=== PATIENT | female | born 1940 | race Caucasian/White ===

== ENCOUNTER → 2017-01-18 | Outpatient (CLI) | payer MEDICARE, OTHER ==
[2017-01-18 12:39] VITALS: BP 139/66; PULSE 69; RESP 20; TEMP 98
--- NOTE | 2017-01-18 13:22 | P.CONS ---
History of Present Illness - Reason for Consult Consult date: 01/18/17 - History of Present Illness The initial consultation visit for this 76 years FEMALE with a chronic history of severe neck pain, the pain started 4 years ago and she denies any initiating event, it is constant localized in the right side of the neck, and radiated towards the right shoulder blade area, she denies any numbness or tingling sensations she denies any motor or sensory deficits, no fever or night sweats, no change in bowel movement or urination, and also patient complaining of severe low back pain and localized in the low back. It is not radiated to the lower extremity, Past Medical History Past Medical History: Hypertension History of Any Multi-Drug Resistant Organisms: None Reported Past Surgical History: Appendectomy, Cholecystectomy, Joint Replacement, Tubal Ligation Additional Past Surgical History / Comment(s): BILATERAL KNEE REPLACEMENT/BILAT CATARACTS REMOVED Past Anesthesia/Blood Transfusion Reactions: No Reported Reaction Past Psychological History: Depression Smoking Status: Never smoker - Past Family History Mother Family Medical History: Cancer Additional Family Medical History / Comment(s): BREAST Father Family Medical History: Cancer Additional Family Medical History / Comment(s): LIVER CANCER/HEART PROBLEMS Medications and Allergies Home Medications Medication Instructions Recorded Confirmed Type Aspirin 81 mg PO DAILY 01/18/17 01/18/17 History Atenolol 25 mg PO BID 01/18/17 01/18/17 History Escitalopram [Lexapro] 10 mg PO DAILY 01/18/17 01/18/17 History Furosemide [Lasix] 40 mg PO DAILY 01/18/17 01/18/17 History HYDROcodone/APAP 5-325MG [[place] 1 PO Q8H PRN 01/18/17 History 5-325] Loratadine [Loratadine] 20 mg PO DAILY 01/18/17 01/18/17 History Montelukast [Singulair] 10 mg PO DAILY 01/18/17 01/18/17 History Naproxen [Naprosyn] 500 mg PO PRN 01/18/17 History Simvastatin [Zocor] 40 mg PO DAILY 01/18/17 01/18/17 History hydrALAZINE HCL 25 mg PO BID 01/18/17 01/18/17 History Allergies Allergy/AdvReac Type Severity Reaction Status Date / Time No Known Allergies Allergy Verified 01/18/17 12:21 Physical Exam Vitals: Vital Signs Temp Pulse Resp BP 01/18/17 12:31 98 F 69 20 139/66 Intake and Output 01/17/17 01/18/17 01/18/17 22:59 06:59 14:59 Other: Weight 100.698 kg Patient Weight 01/19/17 06:59 Weight 100.698 kg Social history : not smoker , NO ETOH , NO Illegal drugs use Review of Systems : 1- Constitutional : no chills , no fever , no night sweats , 2- Ears : no ear discharge , no change in hearing 3-Nose, Mouth ,Throat ; no bleeding gums, no sore throat , no epistaxis , 4-Cardiovascular : Denies chest pain, , no orthopnea , no palpitation 5-Respiratory : Denies cough , no dyspnea , no hemoptysis 6-Gastrointestinal :, no change in bowel habits , no coffee- ground emesis . 7-Genitourinary : No hematuria , no discharge , no incontinence, 8-Musculoskeletal : No gait dysfunction , report neck pain, report low back pain , 9- Neurological : no ataxia , no tremor , no sezure , 10-Psychatric , no suicidal ideation no hallucination 11- Endocrine : no cold intolerence , no polyuria , no polydypsia , 12-Hematologic : no easy bleeding , no easy brusing , 13-Allergic / immunology : no angioedema , no wheezing ,no allergic rhinitis 14-Integumentary : no brttle nails , no change hair / nails , no foot/leg ulcers . Physical Examinations : 1-Constitutional : Cooperative , not in acute distress . 2-HEENT : nech ; supple , no Lymphadenopathy , no Thyromegaly , :eyes , no icterus, no photophobia . ENT : , normal oropharynx , no Thrush 3- Respiratory : Chest clear to auscultations Bilaterally , no wheezing . 4- Cardiovascular : regular rate and rhythem , S1 , S2 , no S3 , no S4. 5- Gastrointestinal: abdomen soft no tenderness , no organomegally . 6- Genitourinary : Defferred . 7-Integumentary : No cellulitis , no ulcers , normal skin turgor , no cyanotic . 8- neurologic : Cranial nerve II to XII intact , no focal neurological deffecit 9-psychatric : alert , oriented X 3 , appropriate affect , intact judgment and insight . 10-Lymphatic : no Lymphadenopathy. 11- musculoskeltal: normal gait , exams of the cervical spine = motor stregnth in the deltoid and biceps, normal right side , normal Left side motor stregnth biceps and the wrist extensors normal right side ,normal left side . motor stregnth in the triceps muscle . normal Right side , normal Left side deep tendon reflexes normal at the biceps , normal at Brachioradialis , normal at triceps. positive cervical facet loading test ( RIght side only ) is negative on the left side. exams of the Lumber spine = moter stegnth lower extremities , thigh and legs 5/5 Right side , 5/5 Left side deep tendon reflexes : normal Knee Jerk , normal ankle Jerk positive lumber facet Loading Test Range of motion of the lumbar spine Flexion 30 degrees, extension 10 degrees strait leg raising test , positive at 45 degree Fabere test positive RT and positive LT . Results Comments: MRI of the cervical spine= C3 4 mild facet arthropathy and moderate degenerative disc disease, C4 5 facet joint arthropathy and severe degenerative disc disease, C5 6 and C6 7, severe degenerative disc disease and facet arthropathy Assessment and Plan Plan: Assessment and plan = -Chronic neck pain secondary to cervical degenerative disc disease , cervical spondylosis with cervical facet arthropathy without myelopathy . - diagnoses, prognosis, and treatment options including but not limited to physical therapy, surgical interventions, interventional therapies and medication management including narcotics and adjuvant medication were discussed with the patient and all questions answered to the patient's satisfaction. -medication refile = patient getting prescription refills from her primary care she should continue her current pain medication [place] 5/325 every 6 hours when necessary for pain and naproxen 500 mg every daily when necessary -procedure= patient will be scheduled to have right side medial branch block cervical area C3/C4/C5/C6 with the with twice and she benefited then we will do radiofrequency ablation of the medial branch on the right side The future after we finished the treatment of her neck if she continues to have low back pain we will consider ordering an MRI of the lumbar spine to confirm the diagnosis, medical the patient had lumbar degenerative disc disease and lumbar facet arthropathy Time with Patient: Greater than 30
== END ==
LOC: PNWHC3 12:08
PROVIDERS: ATTEND Specialist
DX: M50.30 Other cervical disc degeneration, unspecified cervical region (principal); M47.812 Spondylosis without myelopathy or radiculopathy, cervical region; M46.82 Other specified inflammatory spondylopathies, cervical region; I10 Essential (primary) hypertension; F32.9 Major depressive disorder, single episode, unspecified; Z79.82 Long term (current) use of aspirin; Z79.1 Long term (current) use of non-steroidal anti-inflammatories (NSAID); Z79.899 Other long term (current) drug therapy
CPT/HCPCS: 99211

== ENCOUNTER 2017-02-22 07:22 | Day surgery (SDC) | payer MEDICARE, OTHER ==
[2017-02-21 10:35] VITALS: BMI 38.9
[2017-02-22] MEDS ORDERED: LACTATED RINGERS 1,000 ML IV ONE (07:51)
[2017-02-22] MEDS ORDERED: LIDOCAINE 1% 20 ML VIAL (10MG/ML) FOR IV START INTRADERMA ONE (07:51)
[2017-02-22] MEDS ORDERED: LACTATED RINGERS 1,000 ML IV SCH (08:00)
[2017-02-22 08:06] VITALS: RESP 16; TEMP 97
[2017-02-22] MEDS ORDERED: BUPIVACAINE (PF) 0.5% 30 ML VIAL ONE (08:25)
[2017-02-22] MEDS ORDERED: DEXAMETHASONE SOD PHOS (MDV) 100 MG/10 ML VIAL ONE (08:25)
[2017-02-22] MEDS ORDERED: MIDAZOLAM 2 MG/2 ML VIAL ONE (08:25)
[2017-02-22] MEDS ORDERED: fentaNYL (PF) 50 MCG/ML 2 ML AMP ONE (08:25)
[2017-02-22] MEDS ORDERED: IV FLUID CONTINUATION 1,000 ML IV ONE (08:51)
--- NOTE | 2017-02-22 09:09 | FL ---
EXAMINATION TYPE: FL guided pain mgmt statistic DATE OF EXAM: 02/22/2017 8:51 AM HISTORY: Flouroscopy time 10 seconds of fluoroscopy provided. IMPRESSION: 1. Fluoroscopy time.
[2017-02-22 09:11] VITALS: BP 129/74; PULSE 76
--- NOTE | 2017-02-22 10:22 | P.PCN ---
Date of Procedure: 02/22/17 Surgeon: Jama Watkins Pathology: none sent Condition: stable Disposition: PACU Description of Procedure: PREOPERATIVE DIAGNOSIS: Cervical spondylosis without myelopathy, cervicogenic headache. POSTOPERATIVE DIAGNOSIS: same PROCEDURES: Right side ONLY C4, C5, C6 medial branch, and third occipital nerve steroid injection, with fluoroscopic guidance ANESTHESIA: Local with 1% lidocaine; conscious sedation EBL: Minimal PROCEDURE INDICATION: This is a patient with neck pain and headaches secondary to cervical arthropathy unresponsive to more conservative treatments. No use of blood thinners, MBB #1 today. PROCEDURE DESCRIPTION / TECHNIQUE: The patient was seen and identified in the preoperative area. Risks, benefits, complications, and alternatives were discussed with the patient (including but not limited to incomplete pain relief , bleeding, infection, nerve damage, and allergies to medications), the patient agreed to proceed with the procedure and signed the consent after all questions were answered. IV was started. Vital signs remained stable throughout the procedure. Patient was taken to the OR and time out was completed. The patient was placed in the prone position on the procedure table. A pillow was placed under the patients chest to increase the cervical interlaminar space. The cervical area was prepped and draped in the usual sterile fashion. Critical pause was taken. Vital signs were closely monitored during the procedure. Conscious sedation was used during the procedure to decrease patients anxiety. Using AP fluoroscopy with 15 degree caudal tilt, the medial branch groove of the C4 articular pillar on the right side (corresponding to the waist of the C4 articular pillar on the right) was identified, marked, and localized with 1% lidocaine. Subsequently, after localization, a 22 G 3.5-inch spinal needle was advanced guided by fluoroscopy to this area. Similarly, needles were placed at the medial branch grooves of C5 and C6 in a similar fashion. On lateral view fluoroscopy, needle tip positions was confirmed at the centroid of the trapezoid of C4, C5, and C6. Subsequently, 1 ml of a 3 ml combination of 10 mg Kenalog and 2 ml of preservative-free Bupivacaine 0.5% was injected at each site after negative aspiration for blood and CSF. COMPLICATIONS: No acute complications. COMMENTS: DISPOSITION / PLANS: The patient was placed in a supine position and transferred to the recovery area in a stable condition for observation and was discharged from the recovery room after meeting discharge criteria. Home discharge instructions given to the patient by the staff. The patient was reexamined prior to discharge. The patient will schedule a repeat procedure ( cervical MBB) in 2-4 weeks.
== END 2017-02-22 09:31 | disposition home or self-care (01) ==
LOC: ORPAIN 07:22
PROVIDERS: ATTEND Anesthesiology
DX: G89.29 Other chronic pain (principal); M54.2 Cervicalgia; M54.9 Dorsalgia, unspecified; M47.812 Spondylosis without myelopathy or radiculopathy, cervical region; R51 Headache
CPT/HCPCS: 64490; 64491; 64492; 99152; J2250; J3010; J1100

== ENCOUNTER 2017-03-30 07:17 | Day surgery (SDC) | payer MEDICARE, OTHER ==
[2017-03-24 14:22] VITALS: BMI 38.9
[~2017-03-30 07:17] MED LIST: LACTATED RINGERS 1,000 ML IV SCH
[2017-03-30] MEDS ORDERED: MIDAZOLAM 2 MG/2 ML VIAL ONE (07:30)
[2017-03-30] MEDS ORDERED: fentaNYL (PF) 50 MCG/ML 2 ML AMP ONE (07:30)
[2017-03-30] MEDS ORDERED: BUPIVACAINE (PF) 0.5% 30 ML VIAL ONE (07:30)
[2017-03-30] MEDS ORDERED: DEXAMETHASONE SOD PHOS (MDV) 100 MG/10 ML VIAL ONE (07:30)
[2017-03-30 08:09] VITALS: TEMP 98
[2017-03-30] MEDS ORDERED: IV FLUID CONTINUATION 1,000 ML IV ONE (09:08)
--- NOTE | 2017-03-30 09:14 | P.PCN ---
Date of Procedure: 03/30/17 Preoperative Diagnosis: Postoperative Diagnosis: Procedure(s) Performed: PREOPERATIVE DIAGNOSIS: Cervical Spondylosis with Facet Arthropathy.without myelopathy POSTOPERATIVE DIAGNOSIS: Cervical Spondylosis Facet Arthropathy. Without myelopathy PROCEDURES: Diagnostic right. C3-4, C4-5 , C5-6, medial branch blocks, with fluoroscopic guidance ANESTHESIA: Local with 1% lidocaine 3 ml ; IV sedation with Versed 1 mg and fentanyl 50 g. EBL: Minimal PROCEDURE INDICATION: The patient with neck pain secondary to cervical arthropathy unresponsive to more conservative treatments. PROCEDURE DESCRIPTION / TECHNIQUE: The patient was seen and identified in the preoperative area. Risks, benefits, complications, and alternatives were discussed with the patient, the patient agreed to proceed with the procedure and signed the consent. IV was started. Vital signs remained stable throughout the procedure. Patient was taken to the OR and time out was completed. The patient was placed in the Lateral position on the procedure table.(Left side down ,Becaus the prone position ,I could not visualize anything below C2 Vertebra ). The cervical area was prepped and draped in the usual sterile fashion. Critical pause was taken. Vital signs were closely monitored during the procedure. Conscious sedation was used during the procedure to decrease patients anxiety. Using cross-table lateral fluoroscopy, the centroid of the trapezoid of right C3 , C4 , C5 , was identified, marked, and localized with 1% lidocaine 1 ml at each level for skin and Sub Q infiltrations . Subsequently, a 22 G 3 spinal needle was advanced guided by fluoroscopy to the centroid of the trapezoid of Right C3, C4 , C5, C6 . [place] tip position was confirmed at the centroid of the trapezoids of Right C3 , C4 , C5 with anteroposterior fluoroscopy. Subsequently, 1.5 ml of preservative-free Bupivacaine 0.5% mixed with Dexamethasone 10 mg and half ml of the mixture was injected after negative aspiration for blood and CSF. COMPLICATIONS: No acute complications. COMMENTS: DISPOSITION / PLANS: The patient was placed in a supine position and transferred to the recovery area in a stable condition for observation and was discharged from the recovery room after meeting discharge criteria. Home discharge instructions given to the patient by the staff. The patient was reexamined prior to discharge. The patient will schedule a follow up in the clinic in 2-4 weeks. Implants: Indications for Procedure: Operative Findings: Description of Procedure:
[2017-03-30 09:15] VITALS: RESP 16
[2017-03-30 09:24] VITALS: BP 127/68; PULSE 62
--- NOTE | 2017-03-30 10:14 | FL ---
Fluoroscopy HISTORY: Pain 58 seconds fluoroscopy time supplied to the referring clinician. 2 intraoperative C-arm images docum ent the procedure. See dictated report from anesthesia.
== END 2017-03-30 09:39 | disposition home or self-care (01) ==
LOC: ORPAIN 07:17
PROVIDERS: ATTEND Specialist
DX: M47.812 Spondylosis without myelopathy or radiculopathy, cervical region (principal)
CPT/HCPCS: 64490; 64491; 64492; 99152; J2250; J3010; J1100

== ENCOUNTER → 2017-05-10 | Day surgery (SDC) | payer MEDICARE, OTHER ==
[2017-05-05 12:20] VITALS: BMI 39.3
[~2017-05-10] MED LIST changes: +LACTATED RINGERS 1,000 ML IV ONE; -LACTATED RINGERS 1,000 ML IV SCH; +LIDOCAINE 1% 20 ML VIAL (10MG/ML) FOR IV START INTRADERMA ONE
[2017-05-10 07:34] VITALS: BP 138/62; PULSE 66; RESP 16; TEMP 97.7
--- NOTE | 2017-05-10 07:47 | P.PN ---
Progress Note - Text Patient presented this morning for right cervical RFA. Patient had no relief from first cervical medial branch block and near-complete (95%) pain relief from second MBB and it is still working. Since patient has very little pain, will cancel procedure for today and tentatively reschedule patient for repeat right cervical medial branch block in 4-6 weeks.
== END ==
LOC: ORPAIN 06:23
PROVIDERS: ATTEND Anesthesiology
DX: M50.30 Other cervical disc degeneration, unspecified cervical region (principal); Z53.9 Procedure and treatment not carried out, unspecified reason

== ENCOUNTER 2017-08-09 09:49 | Day surgery (SDC) | payer MEDICARE, OTHER ==
[2017-08-08 08:14] VITALS: BMI 40.0
[~2017-08-09 09:49] MED LIST changes: -LACTATED RINGERS 1,000 ML IV ONE; +LACTATED RINGERS 1,000 ML IV SCH; -LIDOCAINE 1% 20 ML VIAL (10MG/ML) FOR IV START INTRADERMA ONE
[2017-08-09 10:32] VITALS: RESP 16; TEMP 97.1
[2017-08-09] MEDS ORDERED: LIDOCAINE 1% 20 ML VIAL (10MG/ML) FOR IV START INTRADERMA ONE (10:38)
[2017-08-09] MEDS ORDERED: PROPOFOL 10 MG/ML 20 ML VIAL IV ONE (11:35)
[2017-08-09 11:59] VITALS: PULSE 70
--- NOTE | 2017-08-09 12:04 | P.PCN ---
Date of Procedure: 08/09/17 Procedure(s) Performed: Procedure: Total colonoscopy. Preoperative diagnosis: Screening for neoplasia, patient has history of polyps. Postoperative diagnosis: Diverticulosis with no evidence of acute diverticulitis , strictures, polyps or cancer. Preparation: HalfLytely prep. Sedation: Was provided by anesthesia. Brief clinical history: The patient is a 76-year-old female who is scheduled for this evaluation because of history of polyps. Her last exam was 7 or 8 years ago. The patient has no abdominal complaints, bleeding or anemia. Procedure: With the patient on her left lateral decubitus position and after informed consent and adequate sedation, the perianal area was inspected and it did not show any fissures or fistulas. There were no masses felt on digital rectal examination. The Olympus CFQ 160L video colonoscope was then inserted in the rectum in the usual fashion and advanced to the cecum. There were multiple diverticular orifices seen scattered, both on the left side and sigmoid as well as on the right side with no evidence of diverticulitis. The mucosa appeared healthy. No polyps or tumors were seen. I retroflexed the endoscope in the rectum before the endoscope was withdrawn. The patient tolerated the procedure well. Plan: The patient was reassured. Discussed dietary measures. She will follow- up with you as planned. At her age, I did not recommend further surveillance and that can be kept as a contingency based on her overall health in the future.
[2017-08-09 12:12] VITALS: BP 135/72
== END 2017-08-09 12:47 | disposition home or self-care (01) ==
LOC: ORWHC2ENDO 09:49
DX: Z12.11 Encounter for screening for malignant neoplasm of colon (principal); Z86.010 Personal history of colon polyps; K57.30 Diverticulosis of large intestine without perforation or abscess without bleeding; I10 Essential (primary) hypertension; F32.9 Major depressive disorder, single episode, unspecified; M19.90 Unspecified osteoarthritis, unspecified site; E78.5 Hyperlipidemia, unspecified; Z79.891 Long term (current) use of opiate analgesic; Z79.899 Other long term (current) drug therapy
CPT/HCPCS: J2704; G0105

== ENCOUNTER → 2017-08-15 | Outpatient (CLI) | payer MEDICARE, OTHER ==
--- NOTE | 2017-08-16 09:17 | MM ---
Reason for exam: screening (asymptomatic). Last mammogram was performed 1 year ago. History: Patient is postmenopausal. Family history of premenopausal breast cancer in mother at age 28, breast cancer in maternal aunt at age 50, and breast cancer in maternal aunt at age 60. Physical Findings: A clinical breast exam by your physician is recommended on an annual basis and results should be correlated with mammographic findings. MG Screening Mammo w CAD Bilateral CC and MLO view(s) were taken. Prior study comparison: August 17, 2016, bilateral MG 3d screening mammo w/cad. June 19, 2015, bilateral MG screening mammo w CAD. The breast tissue is heterogeneously dense. This may lower the sensitivity of mammography. Finding: There are typically benign calcifications in both breasts. No suspicious abnormality. No significant changes in finding since August 17, 2016 and June 19, 2015. ASSESSMENT: Benign, BI-RAD 2 RECOMMENDATION: Routine screening mammogram of both breasts in 1 year.
== END ==
LOC: RADMAMWWP 14:32
PROVIDERS: ATTEND Internal Medicine
DX: Z12.31 Encounter for screening mammogram for malignant neoplasm of breast (principal)

== ENCOUNTER 2018-01-28 12:06 | Emergency (ER) | payer MEDICARE, OTHER ==
[2018-01-28] MEDS ORDERED: SODIUM CHLORIDE 0.9% 1,000 ML IV STA (12:50)
--- NOTE | 2018-01-28 12:53 | ED ---
Nausea/Vomiting/Diarrhea HPI - General Chief complaint: Nausea/Vomiting/Diarrhea Stated complaint: Vomiting, chills, cannot eat Time Seen by Provider: 01/28/18 12:37 Source: patient Mode of arrival: wheelchair Limitations: no limitations - History of Present Illness Initial comments: 77-year-old female patient presents to the emergency department today for evaluation after having a vomiting and diarrhea for the last 3 days. Patient states that morning she started having dry heaves. States that this lasted off throughout the day and did progress into vomiting. States she is unable to keep any food or fluids down. States she did have several episodes of diarrhea with this. States that she felt chilled and feverish. She states that symptoms did improve yesterday however she felt very bloated whenever she tried to eat or drink anything. Patient states that today she is feeling better however she has a dry mouth and continues to have some bloating to the abdomen. She denies any hematemesis, hematochezia, or melena. She denies any hematuria, dysuria, urinary frequency, or urinary urgency. Reports only past medical history is hyperlipidemia, hypertension, and seasonal ALLERGIES. She denies any sick contacts or recent travel. Patient denies any recent rash, shortness chest pain, abdominal pain, back pain, numbness, tingling, dizziness, weakness, headache, visual changes, or any other complaints. - Related Data Home Medications Medication Instructions Recorded Confirmed Aspirin 81 mg PO HS 01/18/17 01/28/18 Atenolol 25 mg PO BID 01/18/17 01/28/18 Escitalopram [Lexapro] 10 mg PO DAILY 01/18/17 01/28/18 Furosemide [Lasix] 40 mg PO DAILY PRN 01/18/17 01/28/18 Loratadine [Loratadine] 10 mg PO DAILY 01/18/17 01/28/18 Montelukast [Singulair] 10 mg PO DAILY 01/18/17 01/28/18 Naproxen [Naprosyn] 500 mg PO BID PRN 01/18/17 01/28/18 hydrALAZINE HCL 25 mg PO BID 01/18/17 01/28/18 Ergocalciferol (Vitamin D2) 50,000 unit PO THAPA 02/21/17 01/28/18 [Vitamin D2] HYDROcodone/APAP 10-325MG [Flanagan 1 tab PO Q8HR PRN 02/21/17 01/28/18 10-325] Previous Rx's Medication Instructions Recorded Levofloxacin [Levaquin] 500 mg PO DAILY #10 tab 01/28/18 Allergies Allergy/AdvReac Type Severity Reaction Status Date / Time adhesive tape AdvReac Unknown skin Verified 01/28/18 12:58 irritation Review of Systems ROS Statement: Those systems with pertinent positive or pertinent negative responses have been documented in the HPI. ROS Other: All systems not noted in ROS Statement are negative. Past Medical History Past Medical History: Hyperlipidemia, Hypertension, Osteoarthritis (OA) Additional Past Medical History / Comment(s): LOWER BACK, NECK, & SHOULDER PAIN. SEASONAL ALLERGIES History of Any Multi-Drug Resistant Organisms: None Reported Past Surgical History: Appendectomy, Cholecystectomy, Joint Replacement, Tubal Ligation Additional Past Surgical History / Comment(s): BILATERAL KNEE REPLACEMENT/BILAT CATARACTS REMOVED; Pain Clinic procedures. COLONOSCOPY Past Anesthesia/Blood Transfusion Reactions: No Reported Reaction Past Psychological History: Anxiety, Depression Smoking Status: Never smoker Past Alcohol Use History: None Reported Past Drug Use History: None Reported - Past Family History Mother Family Medical History: Cancer Additional Family Medical History / Comment(s): BREAST Father Family Medical History: Cancer Additional Family Medical History / Comment(s): LIVER CANCER/HEART PROBLEMS Son(s) Family Medical History: Cancer Additional Family Medical History / Comment(s): MULTIPLE MYELOMA- PASSED 2015 General Exam Limitations: no limitations General appearance: alert, in no apparent distress, other (This is a well- developed, obese adult female patient in no acute distress. Vital signs upon presentation are temperature 98.6F, pulse 76, respirations 20, blood pressure 106/66, pulse ox 93% on room air.) Eye exam: Present: normal appearance, PERRL, EOMI. Absent: scleral icterus, conjunctival injection, periorbital swelling ENT exam: Present: normal exam, normal oropharynx. Absent: mucous membranes moist (Lips and mucous membranes dry) Respiratory exam: Present: normal lung sounds bilaterally. Absent: respiratory distress, wheezes, rales, rhonchi, stridor Cardiovascular Exam: Present: regular rate, normal rhythm, normal heart sounds. Absent: systolic murmur, diastolic murmur, rubs, gallop, clicks GI/Abdominal exam: Present: soft, normal bowel sounds. Absent: distended, tenderness, guarding, rebound, rigid Neurological exam: Present: alert, oriented X3, CN II-XII intact Psychiatric exam: Present: normal affect, normal mood Skin exam: Present: warm, dry, intact, normal color. Absent: rash Course Vital Signs 01/28/18 01/28/18 01/28/18 12:24 14:41 16:00 Temperature 98.6 F 98 F Pulse Rate 76 77 79 Respiratory 20 17 16 Rate Blood Pressure 106/66 115/56 123/64 O2 Sat by Pulse 93 L 93 L 95 Oximetry Medical Decision Making - Medical Decision Making 77-year-old female patient presented to the emergency department today for evaluation of vomiting and abdominal bloating. She is also reporting lower back pain. Physical examination was unremarkable. Abdomen was soft and nontender. Patient is afebrile and her vital signs are stable. Labs reviewed and did reveal an elevated white blood cell count at 23.5, neutrophil count of 21.8, BUN of 31, lactic acid of 1.3, AST 63, a LT 68, an alkaline phosphatase of 131. Urinalysis shows a turbid appearance with 2+ protein, small amount of blood, positive nitrite, large leukocyte esterase, 32 red blood cells, 145 white blood cells, few white blood cell clumps, rare bacteria, 10 hyaline casts , and a few urine yeast. Total bilirubin was normal. CT of the abdomen and pelvis showed calcifications in the right kidney with possible intermittent obstruction on the right side. Patient symptoms most likely represent pyelonephritis. Patient is tolerating oral fluids and foods at this time. I did discuss findings with the patient. I did discuss possibility of admission however she requests discharge home. She was given an IV dose of Rocephin here in the department. She'll be started on Levaquin. She will follow-up with her primary care physician on Tuesday. Return parameters discussed in detail, she is instructed to return here immediately for any development of fever, or other new, worsening, or concerning symptoms. She verbalizes understanding and agrees with this plan. - Lab Data Result diagrams: 01/28/18 13:11 01/28/18 13:11 Lab Results 01/28/18 01/28/18 01/28/18 Range/Units 13:00 13:11 13:11 WBC 23.5 H (3.8-10.6) k/uL RBC 4.47 (3.80-5.40) m/uL Hgb 14.0 (11.4-16.0) gm/dL Hct 41.2 (34.0-46.0) % MCV 92.1 (80.0-100.0) fL MCH 31.3 (25.0-35.0) pg MCHC 34.0 (31.0-37.0) g/dL RDW 13.4 (11.5-15.5) % Plt Count 113 L (150-450) k/uL Neutrophils % 93 % Lymphocytes % 3 % Monocytes % 3 % Eosinophils % 0 % Basophils % 0 % Neutrophils # 21.8 H (1.3-7.7) k/uL Lymphocytes # 0.7 L (1.0-4.8) k/uL Monocytes # 0.7 (0-1.0) k/uL Eosinophils # 0.0 (0-0.7) k/uL Basophils # 0.1 (0-0.2) k/uL Sodium 141 (137-145) mmol/L Potassium 4.1 (3.5-5.1) mmol/L Chloride 104 (98-107) mmol/L Carbon Dioxide 25 (22-30) mmol/L Anion Gap 12 mmol/L BUN 31 H (7-17) mg/dL Creatinine 0.96 (0.52-1.04) mg/dL Est GFR (CKD-EPI)AfAm 66 (>60 ml/min/1.73 sqM) Est GFR (CKD-EPI)NonAf 57 (>60 ml/min/1.73 sqM) Glucose 119 H (74-99) mg/dL Plasma Lactic Acid [place] (0.7-2.0) mmol/L Calcium 9.8 (8.4-10.2) mg/dL Total Bilirubin 0.7 (0.2-1.3) mg/dL AST 63 H (14-36) U/L ALT 68 H (9-52) U/L Alkaline Phosphatase 131 H (38-126) U/L Total Protein 6.5 (6.3-8.2) g/dL Albumin 3.5 (3.5-5.0) g/dL Amylase 62 (30-110) U/L Lipase 66 (23-300) U/L Urine Color Yellow Urine Appearance Turbid H (Clear) Urine pH 5.5 (5.0-8.0) Ur Specific [place] 1.018 (1.001-1.035) Urine Protein 2+ H (Negative) Urine Glucose (UA) Negative (Negative) Urine Ketones Negative (Negative) Urine Blood Small H (Negative) Urine Nitrite Positive H (Negative) Urine Bilirubin Negative (Negative) Urine Urobilinogen <2.0 (<2.0) mg/dL Ur Leukocyte Esterase Large H (Negative) Urine RBC 32 H (0-5) /hpf Urine WBC 145 H (0-5) /hpf Urine WBC Clumps Few H (None) /hpf Urine Bacteria Rare H (None) /hpf Hyaline Casts 10 H (0-2) /lpf Granular Casts 19 (0) /lpf Urine Yeast (Budding) Few H (None) /hpf 01/28/18 Range/Units 14:41 WBC (3.8-10.6) k/uL RBC (3.80-5.40) m/uL Hgb (11.4-16.0) gm/dL Hct (34.0-46.0) % MCV (80.0-100.0) fL MCH (25.0-35.0) pg MCHC (31.0-37.0) g/dL RDW (11.5-15.5) % Plt Count (150-450) k/uL Neutrophils % % Lymphocytes % % Monocytes % % Eosinophils % % Basophils % % Neutrophils # (1.3-7.7) k/uL Lymphocytes # (1.0-4.8) k/uL Monocytes # (0-1.0) k/uL Eosinophils # (0-0.7) k/uL Basophils # (0-0.2) k/uL Sodium (137-145) mmol/L Potassium (3.5-5.1) mmol/L Chloride (98-107) mmol/L Carbon Dioxide (22-30) mmol/L Anion Gap mmol/L BUN (7-17) mg/dL Creatinine (0.52-1.04) mg/dL Est GFR (CKD-EPI)AfAm (>60 ml/min/1.73 sqM) Est GFR (CKD-EPI)NonAf (>60 ml/min/1.73 sqM) Glucose (74-99) mg/dL Plasma Lactic Acid [place] 1.3 (0.7-2.0) mmol/L Calcium (8.4-10.2) mg/dL Total Bilirubin (0.2-1.3) mg/dL AST (14-36) U/L ALT (9-52) U/L Alkaline Phosphatase (38-126) U/L Total Protein (6.3-8.2) g/dL Albumin (3.5-5.0) g/dL Amylase (30-110) U/L Lipase (23-300) U/L Urine Color Urine Appearance (Clear) Urine pH (5.0-8.0) Ur Specific [place] (1.001-1.035) Urine Protein (Negative) Urine Glucose (UA) (Negative) Urine Ketones (Negative) Urine Blood (Negative) Urine Nitrite (Negative) Urine Bilirubin (Negative) Urine Urobilinogen (<2.0) mg/dL Ur Leukocyte Esterase (Negative) Urine RBC (0-5) /hpf Urine WBC (0-5) /hpf Urine WBC Clumps (None) /hpf Urine Bacteria (None) /hpf Hyaline Casts (0-2) /lpf Granular Casts (0) /lpf Urine Yeast (Budding) (None) /hpf - EKG Data -: EKG Interpreted by Nd EKG Comments: EKG obtained at 1322 shows normal sinus rhythm with a ventricular rate of 78, AL interval 182, QR orthodoxy 98, QTC 384, QTC 437. - Radiology Data Radiology results: report reviewed, image reviewed CT of the abdomen and pelvis with contrast was obtained. Report was reviewed in its entirety. Impression by Dr. Cristi Patel shows findings suggesting intermittent right ureteropelvic junction obstruction by the 8 mm calcification delayed KUB CT imaging is pending. Addendum shows opacification of the upper and lower collecting symptoms and urinary bladder, with the right ureter taking the serpentine courses of descendents. There is no obstructive uropathy at this time, but the prominent edematous change her optic cephalocaudal extent of the right perirenal space is notable, extending to involve both the Gerota fascia anteriorly and the Zuckerkandl fascia posteriorly. There is a nearly 2 cm on a mildly low attenuation in the anterior pole of the right kidney centered on image 27 of 67. This Finding can correlate with clinical diagnosis of focal pyelonephritis of the right kidney. There are no associated abnormal fluid or gas collections. Disposition Clinical Impression: Pyelonephritis Disposition: HOME SELF-CARE Condition: Good Instructions: Acute Nausea and Vomiting (ED), Urinary Traction Infection in Older Adults (ED) Additional Instructions: Complete antibiotic prescription in full. Increase fluid intake. Follow-up with your primary care physician for recheck as soon as possible. Have repeat urine test performed once your antibiotics are complete to ensure clearance of infection. Return here immediately for any new, worsening, or concerning symptoms. Prescriptions: Levofloxacin [Levaquin] 500 mg PO DAILY #10 tab Referrals: Ten Guerrero MD [Primary Care Provider] - 1-2 days Time of Disposition: 15:41
[2018-01-28 13:25] LABS: Basophils # (A) 0.1 k/uL (0-0.2); Basophils % (A) 0 %; Eosinophils % (A) 0 %; HCT 41.2 % (34.0-46.0); Lymphocytes # (A) 0.7 k/uL (1.0-4.8); Lymphocytes % (A) 3 %; MCH 31.3 pg (25.0-35.0); MCV 92.1 fL (80.0-100.0); Monocytes # (A) 0.7 k/uL (0-1.0); Monocytes % (A) 3 %; Neutrophils # (A) 21.8 k/uL (1.3-7.7); Neutrophils % (A) 93 %; Platelet Count 113 k/uL (150-450); RBC 4.47 m/uL (3.80-5.40); RDW 13.4 % (11.5-15.5); WBC 23.5 k/uL (3.8-10.6)
[2018-01-28 13:34] LABS: Albumin 3.5 g/dL (3.5-5.0); Calcium 9.8 mg/dL (8.4-10.2); Potassium 4.1 mmol/L (3.5-5.1); Total Bilirubin 0.7 mg/dL (0.2-1.3); Total Protein 6.5 g/dL (6.3-8.2)
[2018-01-28 13:46] LABS: Appearance,Urine Turbid (Clear); Bacteria,Urine Rare /hpf; Bilirubin,Urine Negative (Negative); Blood,Urine Small (Negative); Budding Yeast,Urine Few /hpf; Color,Urine Yellow; Glucose,Urine (UA) Negative (Negative); Granular Casts,Urine 19 /lpf (0); Hyaline Casts,Urine 10 /lpf (0-2); Ketones,Urine Negative (Negative); Leukocyte Esterase,Urine Large (Negative); Nitrite,Urine Positive (Negative); PH, Urine 5.5 (5.0-8.0); Protein,Urine 2+ (Negative); RBC,Urine 32 /hpf (0-5); Specific Gravity,Urine 1.018 (1.001-1.035); Urobilinogen,Urine <2.0 mg/dL (<2.0); WBC,Urine 145 /hpf (0-5)
[2018-01-28] MEDS ORDERED: cefTRIAXone IN SWFI 1,000 MG/10 ML SYRINGE IVP STA ×2 (13:49→15:21)
[2018-01-28] MEDS ORDERED: RX INFO: IV CONTRAST WAS GIVEN 1 EACH MISC MISCELLANE PRN (14:01)
--- NOTE | 2018-01-28 14:06 | XR ---
EXAMINATION TYPE: XR KUB , 2 VIEWS DATE OF EXAM ORDERED: 01/28/2018 HISTORY: pain. COMPARISON: None. FINDINGS: The lung bases are clear. The abdominal gas pattern is nonspecific with nondilated loops of large and small bowel throughout th e abdomen. There are scattered air-fluid levels. There is no evidence of obstruction or free air. The re is a questionable calcification overlying the upper abdomen on the right. This is quite lateral to represent a renal calculus in the etiology of it is uncertain. IMPRESSION: 1. PROBABLE ILEUS. 2. NONSPECIFIC CALCIFICATION OVERLYING THE UPPER PELVIS ON THE RIGHT.
--- NOTE | 2018-01-28 15:13 | CT ---
EXAMINATION TYPE: CT abdomen pelvis w con DATE OF EXAM: 01/28/2018 COMPARISON: NONE HISTORY: Patient complains of nausea, vomiting, and bloating. CT DLP: 1727.4 mGycm Automated exposure control for dose reduction was used. TECHNIQUE: Helical acquisition of images was performed from the lung bases through the pelvis. CONTRAST: Performed without Oral Contrast and with IV Contrast, patient injected with 80 mL of Isovue 300. FINDINGS: LUNG BASES: No significant abnormality is appreciated. LIVER/GB: No significant abnormality is appreciated. PANCREAS: No significant abnormality is seen. SPLEEN: No significant abnormality is seen. ADRENALS: No significant abnormality is seen. KIDNEYS, URETERS, AND BLADDER: There is a reticular pattern of increased attenuation throughout the r ight perirenal space. There is mild hydronephrosis. There is no definite hydroureter on these images, but there is indistinctness of clot along the course of the right ureter throughout its extent. Ther e is an 8 mm calcification in the right renal pelvis dependently, not obstructing the right UPJ. Ther e are adjacent 8 and 3 mm nonobstructing calcifications in the mid kidney posteriorly, and a nonobstr ucting 6 mm calcification inferiorly. On the left, there are no renal calcifications. The left ureter is unremarkable. The urinary bladder is unremarkable.. RETROPERITONEAL ADENOPATHY: None visualized REPRODUCTIVE ORGANS: No significant abnormality is seen PELVIC ADENOPATHY: None visualized. OSSEOUS STRUCTURES: No significant abnormality is seen. BOWEL: No significant abnormality is seen. OTHER: The vasculature is unremarkable. IMPRESSION: FEEDING SUGGEST INTERMITTENT RIGHT UPJ OBSTRUCTION BY THE 8 MM CALCIFICATION; DELAYED KUB CT IMAGING IS PENDING, AN ADDENDUM WILL BE GIVEN AT THAT TIME.
[2018-01-28 16:01] VITALS: BP 123/64; PULSE 79; RESP 16; TEMP 98
== END 2018-01-28 15:59 | disposition home or self-care (01) ==
LOC: EC 12:06
DX: N12 Tubulo-interstitial nephritis, not specified as acute or chronic (principal); I10 Essential (primary) hypertension; F41.9 Anxiety disorder, unspecified; F32.9 Major depressive disorder, single episode, unspecified; Z79.82 Long term (current) use of aspirin; Z79.899 Other long term (current) drug therapy; Z91.048 Other nonmedicinal substance allergy status
CPT/HCPCS: 36415; 93005; 80053; 82150; 83605; 83690; 85025; 81001; 87040; 87086; 87077; 87186; 74018; 74177; 99284; 96374; 96361; J0696; Q9967

== ENCOUNTER → 2018-02-06 | Outpatient (CLI) | payer MEDICARE, OTHER ==
--- NOTE | 2018-02-07 08:09 | CT ---
EXAMINATION TYPE: CT abdomen pelvis wo con DATE OF EXAM: 02/06/2018 COMPARISON: 01/28/2018 HISTORY: Bilateral flank pain. CT DLP: 964 mGycm Examination of the solid and hollow viscera is limited given the lack of contrast. FINDINGS: LUNG BASES: No evidence for nodule. No evidence for infiltrate. LIVER/GB: The gallbladder is surgically absent. No space-occupying hepatic lesion. PANCREAS: No pancreatic mass identified. No inflammatory process seen. SPLEEN: No evidence for splenomegaly. No intrasplenic lesions seen. ADRENALS: No adrenal nodules identified. Left adrenal glandular hyperplasia is mild in degree. KIDNEYS: No evidence for renal mass. Nonobstructing calculus right renal pelvis measures 7.2 mm. Nono bstructing calculus lower pole right kidney measures 4.8 mm. Additional nonobstructing midpole calcul us right kidney measures 7 mm. No left-sided renal calculi identified. No hydronephrosis appreciated. BOWEL: Appendix has a normal appearance. No evidence of bowel obstruction. No inflammatory process. Lymph nodes: No evidence for adenopathy greater than 1 cm. Abdominal aorta: Atheromatous changes seen. No evidence for aneurysm. Genital organs: No significant abnormality. Other: Fat-containing femoral hernias. Fat-containing midline low anterior abdominal wall hernia.. Se julee degenerative change throughout the lumbar spine. Grade 1 anterolisthesis L4 and L5. Ventral spon dylosis. IMPRESSION: 1. Nonobstructing nephrolithiasis on the right. 2. Left-sided adrenal glandular hyperplasia. 3. Severe multilevel degenerative disc disease.
== END | disposition home or self-care (01) ==
LOC: RADCTMAIN 18:10
PROVIDERS: ATTEND Internal Medicine
DX: N20.0 Calculus of kidney (principal); R59.9 Enlarged lymph nodes, unspecified
CPT/HCPCS: 74176

== ENCOUNTER → 2019-01-29 | Outpatient (CLI) | payer MEDICARE, OTHER ==
--- NOTE | 2019-01-30 13:45 | BD ---
EXAMINATION TYPE: Axial Bone Density DATE OF EXAM: 01/29/2019 COMPARISON: Prior DEXA bone scan 2014. CLINICAL HISTORY: Disorder of bone per order. Height: 61 Weight: 241.8 FRAX RISK QUESTIONS: Alcohol (3 or more units per day): no Family History (Parent hip fracture): no Glucocorticoids (More than 3mos): no (Ex: prednisone, prednisolone, methylprednisolone, dexamethasone, and hydrocortisone). History of Fracture in Adulthood: no Secondary Osteoporosis: 1. Type 1 Diabetes: no 2. Hyperthyroidism: no 3. Menopause before 45: no 4. Malnutrition: no 5. Chronic liver disease: no Rheumatoid Arthritis: no Current Tobacco Use: no RISK FACTORS HISTORY OF: Family History of Osteoporosis: no Active: no Diet low in dairy products/other sources of calcium: no Postmenopausal woman: age 55 Lost more than 2 inches in height since high school: yes MEDICATIONS: blood pressure med x2, allergy meds x2, simvastatin, lasix as needed Additional History: EXAM MEASUREMENTS: Bone mineral densitometry was performed using the [employer] System. Bone mineral density as measured about the Lumbar spine is: ----- L1-L4(G/cm2): 1.352 T Score Values are as follows: ----- L2: 0.2 ----- L3: 1.6 ----- L4: 2.9 ----- L1-L4: 1.4 Bone mineral density has: increased 2.8 % since study of: 06.19.2015 Bone mineral density about the R hip (g/cm2): 0.689 Bone mineral density about the L hip (g/cm2): 0.742 T Score values are as follows: -----R Neck: -2.5 -----L Neck: -2.1 -----R Total: -1.3 -----L Total: -1.1 Bone mineral density has: decreased -5.1 % since study of: 06.19.2015 IMPRESSION: Osteopenia (T Score between -2.5 and -1) persists femoral neck level in both hips. Bone density is de creased or diminished at this level from prior study. There remains slightly increased risk of fracture and the patient may be considered for treatment. Re-Screen 2-5 years. NOTE: T-SCORE=SD OF THE YOUNG ADULT MEAN.
--- NOTE | 2019-01-31 09:08 | MM ---
Reason for exam: screening (asymptomatic). Last mammogram was performed 1 year and 6 months ago. History: Patient is postmenopausal. Family history of premenopausal breast cancer in mother at age 28, breast cancer in maternal aunt at age 50, and breast cancer in maternal aunt at age 60. Physical Findings: A clinical breast exam by your physician is recommended on an annual basis and results should be correlated with mammographic findings. MG 3D Screening Mammo W/Cad Bilateral CC and MLO view(s) were taken. Prior study comparison: August 15, 2017, bilateral MG screening mammo w CAD. August 17, 2016, bilateral MG 3d screening mammo w/cad. The breast tissue is heterogeneously dense. This may lower the sensitivity of mammography. Bilateral nodular breast tissue redemonstrated. Vascular and secretory calcifications bilaterally. No significant changes when compared with prior studies. ASSESSMENT: Benign, BI-RAD 2 RECOMMENDATION: Routine screening mammogram of both breasts in 1 year.
== END | disposition home or self-care (01) ==
LOC: RADMAMWWP 09:58
PROVIDERS: ATTEND Internal Medicine
DX: Z12.31 Encounter for screening mammogram for malignant neoplasm of breast (principal); M85.851 Other specified disorders of bone density and structure, right thigh; M85.852 Other specified disorders of bone density and structure, left thigh
CPT/HCPCS: 77063; 77067; 77080

== ENCOUNTER → 2019-03-20 | Outpatient (CLI) | payer MEDICARE, OTHER ==
--- NOTE | 2019-03-22 08:47 | MR ---
EXAMINATION TYPE: MR lumbar spine wo con DATE OF EXAM: 03/20/2019 COMPARISON: CT 01/28/2018 HISTORY: Low back pain TECHNIQUE: Multiplanar, multisequence images of the lumbar spine were acquired. L1-L2: Mild central stenosis due to posterior broad-based disc bulge causing anterior mass effect on the thecal sac. Circumferential extension causes bilateral foraminal encroachment. Hypertrophic mantilla es are present at the facets. L2-L3: Vacuum phenomenon present along the disc space. Posterior extension endplate disc complex caus es anterior mass effect on the thecal sac. Hypertrophic changes of the facets causes posterior latera l mass effect on the thecal sac from circumferential extension endplate disc complex results in bilat eral foraminal encroachment right greater than left. L3-L4: Marked facet arthropathy causes posterior lateral mass effect on the thecal sac. Broad-based d isc bulge causes minimal anterior mass effect on the thecal sac. There is bilateral foraminal encroac hment due to circumferential extension of endplate disc complex and listhesis. Vacuum phenomenon pres ent along the disc space. L4-L5: There is facet arthropathy change, hypertrophic changes with the listhesis and small posterior disc bulge results in a trefoil appearance of the thecal sac. There is bilateral foraminal encroachm ent greater on the right due to the listhesis. Vacuum phenomenon present along the disc space. L5-S1: Facet arthropathy changes are present. No disc herniation or significant foraminal encroachmen t, no spinal stenosis. Lumbar segments are intact. No paraspinal masses are identified. Conus medullaris has a normal appe arance. There is an anterolisthesis grade 1 L4-5, L3-4. Loss of disc height signal is present at the intervertebral levels, there is multilevel spondylosis with endplate discogenic marrow signal change. Accentuated lordosis is present. Probable Schmorl's node at superior endplate of L2. Partial sacrali zation of L5 noted on the left, for convention T12 does not show ribs on the prior CT for numbering p urposes. Common bile duct is dilated. IMPRESSION: Degenerative disc disease, facet arthropathy, spinal listhesis, multilevel foraminal encroachment as described. Correlate with plain film prior to any surgical intervention, numbering scheme as describe d. Additional findings above, dilated common bile duct.
== END | disposition home or self-care (01) ==
LOC: RADMRIMAIN 14:54
PROVIDERS: ATTEND Internal Medicine
DX: M51.36 Other intervertebral disc degeneration, lumbar region (principal); M43.16 Spondylolisthesis, lumbar region; M47.816 Spondylosis without myelopathy or radiculopathy, lumbar region; M46.97 Unspecified inflammatory spondylopathy, lumbosacral region; M46.96 Unspecified inflammatory spondylopathy, lumbar region
CPT/HCPCS: 72148

== ENCOUNTER 2019-03-28 16:15 | Emergency (ER) | payer MEDICARE, OTHER ==
[2019-03-28] MEDS ORDERED: IPRATROPIUM-ALBUTEROL 3 ML NEB INHALATION STA (17:19)
--- NOTE | 2019-03-28 17:32 | ED ---
General Adult HPI - General Chief complaint: Upper Respiratory Infection Stated complaint: wheezing Time Seen by Provider: 03/28/19 17:05 Source: patient, RN notes reviewed Mode of arrival: ambulatory Limitations: no limitations - History of Present Illness Initial comments: Patient is a pleasant 78-year-old female presenting to the emergency department with coughing and wheezing. Patient states onset of symptoms was around a week ago. Patient does admit to having some swelling of her legs. Patient states the swelling has been occurring over the past couple weeks. Patient states did have her legs wrapped last week and therefore the swelling is not as bad at this point. Patient does get clean the wound care for cellulitis of her legs. Dr. Deana murillo did see her today and wrapped her legs. Dr. Mcrae stated that the cellulitis is improving and patient does agree. Patient denies any chest discomfort. No fevers. Patient denies any history of asthma or COPD. - Related Data Home Medications Medication Instructions Recorded Confirmed Aspirin 81 mg PO HS 01/18/17 03/28/19 Atenolol 25 mg PO BID 01/18/17 03/28/19 Furosemide [Lasix] 40 mg PO DAILY 01/18/17 03/28/19 Loratadine 10 mg PO DAILY 01/18/17 03/28/19 Montelukast [Singulair] 10 mg PO DAILY 01/18/17 03/28/19 hydrALAZINE HCL 25 mg PO BID 01/18/17 03/28/19 Ergocalciferol (Vitamin D2) 50,000 unit PO THAPA 02/21/17 03/28/19 [Vitamin D2] HYDROcodone/APAP 10-325MG [[place] 1 tab PO Q8HR PRN 02/21/17 03/28/19 10-325] Previous Rx's Medication Instructions Recorded Albuterol Inhaler [Ventolin Hfa 2 puff INHALATION Q4HR PRN #1 03/28/19 Inhaler] inhaler methylPREDNISolone Dose Pack 24 mg PO DAILY #1 tab 03/28/19 [Medrol Dose Pack] Allergies Allergy/AdvReac Type Severity Reaction Status Date / Time adhesive tape Allergy Unknown Rash/Hives Verified 03/28/19 17:46 Sulfa (Sulfonamide Allergy Rash/Hives Verified 03/28/19 17:46 Antibiotics) Review of Systems ROS Statement: Those systems with pertinent positive or pertinent negative responses have been documented in the HPI. ROS Other: All systems not noted in ROS Statement are negative. Constitutional: Denies: fever Eyes: Denies: eye pain ENT: Denies: ear pain Respiratory: Reports: cough, wheezes Cardiovascular: Denies: chest pain Endocrine: Denies: fatigue Gastrointestinal: Denies: abdominal pain Genitourinary: Denies: dysuria Musculoskeletal: Denies: back pain Skin: Denies: rash Neurological: Denies: weakness Past Medical History Past Medical History: Hyperlipidemia, Hypertension, Osteoarthritis (OA) Additional Past Medical History / Comment(s): LOWER BACK, NECK, & SHOULDER PAIN. SEASONAL ALLERGIES History of Any Multi-Drug Resistant Organisms: None Reported Past Surgical History: Appendectomy, Cholecystectomy, Joint Replacement, Tubal Ligation Additional Past Surgical History / Comment(s): BILATERAL KNEE REPLACEMENT/BILAT CATARACTS REMOVED; Pain Clinic procedures. COLONOSCOPY Past Anesthesia/Blood Transfusion Reactions: No Reported Reaction Past Psychological History: Anxiety, Depression Smoking Status: Never smoker Past Alcohol Use History: None Reported Past Drug Use History: None Reported - Past Family History Mother Family Medical History: Cancer Additional Family Medical History / Comment(s): BREAST Father Family Medical History: Cancer Additional Family Medical History / Comment(s): LIVER CANCER/HEART PROBLEMS Son(s) Family Medical History: Cancer Additional Family Medical History / Comment(s): MULTIPLE MYELOMA- PASSED 2015 General Exam Limitations: no limitations General appearance: alert, in no apparent distress Head exam: Present: atraumatic Eye exam: Present: normal appearance, PERRL ENT exam: Present: normal oropharynx Neck exam: Present: normal inspection Respiratory exam: Present: wheezes Cardiovascular Exam: Present: regular rate, normal rhythm GI/Abdominal exam: Present: soft. Absent: tenderness Extremities exam: Present: pedal edema. Absent: calf tenderness Neurological exam: Present: alert Psychiatric exam: Present: normal affect, normal mood Skin exam: Present: normal color Course Vital Signs 03/28/19 03/28/19 03/28/19 16:27 18:06 18:59 Temperature 97.8 F Pulse Rate 77 80 74 Respiratory 20 18 Rate Blood Pressure 185/73 142/56 O2 Sat by Pulse 97 98 Oximetry Medical Decision Making - Medical Decision Making Patient reevaluated and resting comfortably in bed. Patient still has some wheezing on exam. Patient denies ever having dyspnea at any time. Patient is requesting discharge home. Patient updated on results and need for follow-up. - Lab Data Result diagrams: 03/28/19 17:47 03/28/19 17:47 Lab Results 03/28/19 03/28/19 03/28/19 Range/Units 17:47 17:47 17:47 WBC 5.3 (3.8-10.6) k/uL RBC 4.42 (3.80-5.40) m/uL Hgb 13.0 (11.4-16.0) gm/dL Hct 42.1 (34.0-46.0) % MCV 95.1 (80.0-100.0) fL MCH 29.5 (25.0-35.0) pg MCHC 31.0 (31.0-37.0) g/dL RDW 13.2 (11.5-15.5) % Plt Count 274 (150-450) k/uL Neutrophils % 55 % Lymphocytes % 30 % Monocytes % 6 % Eosinophils % 6 % Basophils % 1 % Neutrophils # 2.9 (1.3-7.7) k/uL Lymphocytes # 1.6 (1.0-4.8) k/uL Monocytes # 0.3 (0-1.0) k/uL Eosinophils # 0.3 (0-0.7) k/uL Basophils # 0.0 (0-0.2) k/uL Hypochromasia Slight Sodium 145 (137-145) mmol/L Potassium 4.0 (3.5-5.1) mmol/L Chloride 108 H (98-107) mmol/L Carbon Dioxide 29 (22-30) mmol/L Anion Gap 8 mmol/L BUN 16 (7-17) mg/dL Creatinine 0.79 (0.52-1.04) mg/dL Est GFR (CKD-EPI)AfAm 83 (>60 ml/min/1.73 sqM) Est GFR (CKD-EPI)NonAf 72 (>60 ml/min/1.73 sqM) Glucose 98 (74-99) mg/dL Calcium 9.6 (8.4-10.2) mg/dL Total Bilirubin 0.2 (0.2-1.3) mg/dL AST 27 (14-36) U/L ALT 17 (9-52) U/L Alkaline Phosphatase 73 (38-126) U/L NT-Pro-B Natriuret Pep 362 pg/mL Total Protein 6.9 (6.3-8.2) g/dL Albumin 3.8 (3.5-5.0) g/dL - Radiology Data Radiology results: image reviewed (chest x-ray shows cardiomegaly) Disposition Clinical Impression: Bronchospasm, Bronchitis Disposition: HOME SELF-CARE Condition: Stable Instructions (If sedation given, give patient instructions): Bronchospasm (ED), Acute Bronchitis (ED) Additional Instructions: Please follow-up with primary care physician in the next day or 2 for recheck. Return for difficulty breathing, fevers, worsening symptoms or any other concerns. Prescriptions: methylPREDNISolone Dose Pack [Medrol Dose Pack] 24 mg PO DAILY #1 tab Albuterol Inhaler [Ventolin Hfa Inhaler] 2 puff INHALATION Q4HR PRN #1 inhaler PRN Reason: Dyspnea Is patient prescribed a controlled substance at d/c from ED?: No Referrals: Ten Guerrero MD [Primary Care Provider] - 1-2 days Time of Disposition: 19:20
[2019-03-28 17:59] LABS: Basophils % (A) 1 %; Eosinophils # (A) 0.3 k/uL (0-0.7); Eosinophils % (A) 6 %; HCT 42.1 % (34.0-46.0); Hypochromasia Slight; Lymphocytes # (A) 1.6 k/uL (1.0-4.8); Lymphocytes % (A) 30 %; MCH 29.5 pg (25.0-35.0); MCV 95.1 fL (80.0-100.0); Mean Platelet Volume 7.1; Monocytes # (A) 0.3 k/uL (0-1.0); Monocytes % (A) 6 %; Neutrophils # (A) 2.9 k/uL (1.3-7.7); Neutrophils % (A) 55 %; Platelet Count 274 k/uL (150-450); RBC 4.42 m/uL (3.80-5.40); RDW 13.2 % (11.5-15.5); WBC 5.3 k/uL (3.8-10.6)
[2019-03-28 18:10] LABS: Albumin 3.8 g/dL (3.5-5.0); Calcium 9.6 mg/dL (8.4-10.2); Total Bilirubin 0.2 mg/dL (0.2-1.3); Total Protein 6.9 g/dL (6.3-8.2)
--- NOTE | 2019-03-28 18:38 | XR ---
EXAMINATION: XR chest 2V DATE AND TIME: 03/28/2019 5:59 PM CLINICAL INDICATION: PHH; difficulty breathing TECHNIQUE: Departmental protocol COMPARISON: [facility]er[facility] Operator topogram 02/06/2018 CT FINDINGS: The overlying soft tissues are prominent. Given this factor, the lungs appear to be clear and well ex panded bilaterally. The pleural spaces are negative. The cardiac silhouette is markedly enlarged. The remainder of the mediastinal silhouette is unremarka ble. The skeletal structures and soft tissues are negative for acute findings. IMPRESSION: 1. No definite acute radiographic process. 2. Marked enlargement of the cardiac silhouette.
[2019-03-28 19:02] VITALS: BP 142/56; PULSE 74; RESP 18
[2019-03-28 19:34] VITALS: TEMP 98
== END 2019-03-28 19:34 | disposition home or self-care (01) ==
LOC: EC 16:15
DX: J40 Bronchitis, not specified as acute or chronic (principal); J98.01 Acute bronchospasm; I10 Essential (primary) hypertension; M19.90 Unspecified osteoarthritis, unspecified site; Z96.653 Presence of artificial knee joint, bilateral; Z79.82 Long term (current) use of aspirin; Z79.899 Other long term (current) drug therapy; Z91.048 Other nonmedicinal substance allergy status; Z88.2 Allergy status to sulfonamides
CPT/HCPCS: 36415; 71046; 80053; 83880; 85025; 94640; 99285

== ENCOUNTER → 2019-04-10 | Outpatient (CLI) | payer MEDICARE, OTHER ==
[2019-04-10 14:42] VITALS: BP 107/68; PULSE 80; RESP 20
--- NOTE | 2019-04-10 14:58 | P.PAINPG ---
Subjective Progress Note Date: 04/10/19 Principal diagnosis: Lumbar spondylosis This is a very pleasant 78-year-old woman with a history of intractable low back pain she recently was seen for cervical spine pain at our facility and had substantial relief with diagnostic cervical medial branch nerve blocks. Her low back pain was a problem at that time however she did not choose to follow-up in the clinic but presents now due to increase in her pain. Her pain stays mainly in her back. She denies any lumbar radicular symptoms. She denies any bowel or bladder dysfunction. She does report having weakness in her legs secondary to trouble with her bilateral knee replacements but is clear that this is not from her back. Objective - Vital Signs Vital signs: Vital Signs Temp Pulse 80 04/10/19 14:34 Resp 20 04/10/19 14:34 BP 107/68 04/10/19 14:34 Pulse Ox 96 04/10/19 14:34 - Exam General: The patient is alert and oriented. Patient is not sedated Patient answers all question appropriately. Cardiac: Heart is regular in rate and rhythm Respiratory: Clear to auscultation. No audible wheezes. Abdomen: Soft nontender nondistended. Musculoskeletal: Strength is normal bilaterally. Sensation is normal bilaterally. Straight leg raise is negative bilaterally. Neurological: Reflexes are preserved and symmetric bilaterally. Assessment and Plan Assessment: Lumbar spondylosis Plan: Plan of Care 1. Medications: Patient will continue to get [place] from her primary care physician. I have reviewed the patient's MAPS report and it reveals expected results. Patient has signed an opiate agreement as well as opiate consent for treatment in our clinic. They understand the risks and benefits of opiate medications. They are aware of the potential for addiction. 2. Interventions: Patient may be good candidate for bilateral lumbar medial branch nerve blocks. We will reevaluate her when she is completed physical therapy 3. Referrals: Patient is being referred to physical therapy. She is also being referred back to her primary care physician for evaluation and management of some lower extremity cellulitis 4. Testing: None 5. Follow-up: 6 weeks after completion of physical therapy PQRS Measure Charge Sheet Measure #130: Documentation of Current Meds in Medical Chart: Patient's medications documented in chart Measure #226: Tobacco Use: Screen & Cessation Intervention: Pt not a tobacco user Measure #111: Pneumonia Vaccination: Pneumococcal vaccine NOT administered or previously given Measure #47: Advance Care Plan: Advance care planning discussed & documented, pt chose/unable to give Measure #412: Opioid Treatment Agreement: No documentation of signed opioid treatment agreement Measure #408: Opioid Therapy Follow-up Evaluation: Patient had NO f/u eval minimum every 3 months during opioid therapy Measure #317: Preventitive Care & Scrn High Bld Press & F/U: Normal blood pressure, f/u not required Measure #128: Body Mass Index (BMI) Screening & Follow-up: BMI documented ABOVE normal parameters - f/u documented Measure #131: Pain Assessment & Follow-up: Pain positive & plan documented Measure #431: Unhealthy Alcohol Use Preventative Care & Scrn: Patient not identified as an unhealthy alcohol user PQRS Narrative: Smoking Status Never smoker Blood Pressure 107/68 Pain Intensity [Bilateral 4 Lower Back] Scale Used Numeric (1 - 10) Hx Alcohol Use (MH) No Home Medications: Ambulatory Orders Aspirin 81 mg PO HS 01/18/17 Atenolol 25 mg PO BID 01/18/17 Furosemide [Lasix] 40 mg PO DAILY 01/18/17 Loratadine 10 mg PO DAILY 01/18/17 hydrALAZINE HCL 25 mg PO BID 01/18/17 Ergocalciferol (Vitamin D2) [Vitamin D2] 50,000 unit PO THAPA 02/21/17 HYDROcodone/APAP 10-325MG [[place] 10-325] 1 tab PO Q8HR PRN 02/21/17 Albuterol Inhaler [Ventolin Hfa Inhaler] 2 puff INHALATION Q4HR PRN #1 inhaler 03/28/19 methylPREDNISolone Dose Pack [Medrol Dose Pack] 24 mg PO DAILY #1 tab 03/28/19 Cetirizine HCl [Zyrtec] 1 tab PO DAILY 04/10/19 Controlled Substance Measures - Controlled Substance Measures Is patient prescribed a controlled substance at discharge?: No
== END | disposition home or self-care (01) ==
LOC: PNWHC3 13:59
PROVIDERS: ATTEND Pain Medicine Pain Medicine
DX: M47.816 Spondylosis without myelopathy or radiculopathy, lumbar region (principal)
CPT/HCPCS: 99211

== ENCOUNTER 2019-08-18 09:40 | Emergency (ER) | payer MEDICARE, OTHER ==
[2019-08-18 09:57] VITALS: RESP 18; TEMP 99.1
[2019-08-18] MEDS ORDERED: ONDANSETRON 4 MG/2 ML VIAL IVP STA (10:17)
--- NOTE | 2019-08-18 10:17 | ED ---
General Adult HPI <Hernandez Paredes - Last Filed: 08/18/19 11:18> - General Source: patient Mode of arrival: ambulatory Limitations: no limitations <Anjel Gonsalez - Last Filed: 08/18/19 11:31> - General Chief complaint: Recheck/Abnormal Lab/Rx Stated complaint: Leg pain/red Time Seen by Provider: 08/18/19 09:58 - History of Present Illness Initial comments: Patient is a 78-year-old female with history of stasis dermatitis the presenting to the emergency department with chief complaint of UTI symptoms and swelling in the leg. Patient reports about 4 or 5 days ago she developed increased urgency or frequency but no dysuria. Patient denies any hematuria or vaginal discharge. Patient does report night sweats and chills but never actually obtain her temperature. Patient also reports that she developed low back pain during this period, although she does have chronic back pain. Patient also reports this morning she noticed mild swelling and erythema in the popliteal region of the right leg. Patient reports a region is tender and the knee feels tight. Patient still reports full range of motion right knee and is able to ambulate without any issues. Patient denies taking medication to alleviate the symptoms. Patient denies any abdominal pain, chest pain, shortness of breath. Patient does report nausea but no vomiting or diarrhea. (Anjel Gonsalez) - Related Data Home Medications Medication Instructions Recorded Confirmed Atenolol 25 mg PO BID 01/18/17 08/18/19 Furosemide [Lasix] 40 mg PO DAILY 01/18/17 08/18/19 hydrALAZINE HCL 25 mg PO BID 01/18/17 08/18/19 Ergocalciferol (Vitamin D2) 50,000 unit PO THAPA 02/21/17 08/18/19 [Vitamin D2] HYDROcodone/APAP 10-325MG [[place] 1 tab PO Q8HR PRN 02/21/17 08/18/19 10-325] Montelukast [Singulair] 10 mg PO DAILY 08/18/19 08/18/19 Potassium Chloride [K-Tab ER] 10 meq PO DAILY 08/18/19 08/18/19 Simvastatin [Zocor] 20 mg PO HS 08/18/19 08/18/19 Previous Rx's Medication Instructions Recorded Cephalexin [Keflex] 500 mg PO Q6HR #40 cap 08/18/19 HYDROcodone/APAP 5-325MG [[place] 1 tab PO Q6HR PRN 3 Days #10 tab 08/18/19 5-325] Allergies Allergy/AdvReac Type Severity Reaction Status Date / Time adhesive tape Allergy Unknown Rash/Hives Verified 08/18/19 10:18 Sulfa (Sulfonamide Allergy Rash/Hives Verified 08/18/19 10:18 Antibiotics) Review of Systems ROS Other: All systems not noted in ROS Statement are negative. <Hernandez Paredes - Last Filed: 08/18/19 11:18> ROS Other: All systems not noted in ROS Statement are negative. <Anjel Gonsalez - Last Filed: 08/18/19 11:31> ROS Statement: Those systems with pertinent positive or pertinent negative responses have been documented in the HPI. Past Medical History Past Medical History: Hyperlipidemia, Hypertension, Osteoarthritis (OA) Additional Past Medical History / Comment(s): LOWER BACK, NECK, & SHOULDER PAIN. SEASONAL ALLERGIES History of Any Multi-Drug Resistant Organisms: None Reported Past Surgical History: Appendectomy, Cholecystectomy, Joint Replacement, Tubal Ligation Additional Past Surgical History / Comment(s): BILATERAL KNEE REPLACEMENT/BILAT CATARACTS REMOVED; Pain Clinic procedures. COLONOSCOPY Past Anesthesia/Blood Transfusion Reactions: No Reported Reaction Past Psychological History: Anxiety, Depression Smoking Status: Never smoker Past Alcohol Use History: None Reported Past Drug Use History: None Reported - Past Family History Mother Family Medical History: Cancer Additional Family Medical History / Comment(s): BREAST Father Family Medical History: Cancer Additional Family Medical History / Comment(s): LIVER CANCER/HEART PROBLEMS Son(s) Family Medical History: Cancer Additional Family Medical History / Comment(s): MULTIPLE MYELOMA- PASSED 2015 <Anjel Gonsalez - Last Filed: 08/18/19 11:31> General Exam Limitations: no limitations General appearance: alert, in no apparent distress, obese Head exam: Present: atraumatic, normocephalic, normal inspection Eye exam: Present: normal appearance Pupils: Present: normal accommodation ENT exam: Present: normal exam, mucous membranes moist, normal external ear exam Neck exam: Present: normal inspection, full ROM Respiratory exam: Present: normal lung sounds bilaterally Cardiovascular Exam: Present: regular rate, normal rhythm, normal heart sounds Extremities exam: Present: full ROM, tenderness (Tenderness in the region of erythema.), normal capillary refill, other (Stasis dermatitis bilateral lower extremities). Absent: normal inspection (Swelling and Erythema in the popliteal region of the right leg.), calf tenderness (Negative Homans bilaterally.) Back exam: Present: normal inspection, full ROM Neurological exam: Present: alert, oriented X3 Psychiatric exam: Present: normal affect, normal mood Skin exam: Present: warm, dry, intact, normal color, erythema (Right popliteal region) <Anjel Gonsalez - Last Filed: 08/18/19 11:31> Course <Hernandez Paredes - Last Filed: 08/18/19 11:18> Vital Signs 08/18/19 08/18/19 09:53 10:59 Temperature 99.1 F Pulse Rate 91 70 Respiratory 18 18 Rate Blood Pressure 136/61 127/66 O2 Sat by Pulse 97 95 Oximetry - Reevaluation(s) Reevaluation #1: 08/18/19 11:18 PEs supervision: I proceeded [id number] evaluation the patient did discuss the findings with her and her family. Patient does demonstrate evidence of a cellulitis of the right medial posterior aspect of the leg at the knee joint there. No evidence of any deeper level involvement. Additionally the patient has run out of her pain medication for chronic back pain. Patient will be discharged home I did discuss this patient family are in agreement with this I do agree with the assessment and plan. (Hernandez Paredes) Medical Decision Making - Lab Data Result diagrams: 08/18/19 10:25 08/18/19 10:25 <Hernandez Paredes - Last Filed: 08/18/19 11:18> - Lab Data Result diagrams: 08/18/19 10:25 08/18/19 10:25 <Anjel Gonsalez - Last Filed: 08/18/19 11:31> - Medical Decision Making Patient is 78-year-old female presenting to emergency Department with a chief complaint of swelling on the leg and UTI symptoms. Patient developed increased urgency or frequency but no dysuria about 4 days ago with no fevers but she does report chills. Patient does have nausea but no vomiting or diarrhea. UA is indicative of bacteria but no leukocyte esterase or nitrates. Physical examination does not indicate any signs of CVA tenderness. Patient will be treated with a single dose of Rocephin and discharged on Keflex. Patient also reports chronic back pain and has run out of medication. Patient will be discharged with 10 tablets of [place] 5. Patient is also complaining of swelling on the right leg which based on physical examination appears to be cellulitis. Ultrasound is negative for fluid or solid masses in the region. The Keflex will also cover for the cellulitis. Strict return parameters were thoroughly discussed the patient was understanding and agreeable. Case discussed physician. (Anjel Gonsalez) - Lab Data Lab Results 08/18/19 08/18/19 08/18/19 Range/Units 10:25 10:25 10:25 WBC 9.1 (3.8-10.6) k/uL RBC 4.20 (3.80-5.40) m/uL Hgb 13.1 (11.4-16.0) gm/dL Hct 40.2 (34.0-46.0) % MCV 95.6 (80.0-100.0) fL MCH 31.1 (25.0-35.0) pg MCHC 32.6 (31.0-37.0) g/dL RDW 13.7 (11.5-15.5) % Plt Count 192 (150-450) k/uL Sodium 142 (137-145) mmol/L Potassium 4.0 (3.5-5.1) mmol/L Chloride 105 (98-107) mmol/L Carbon Dioxide 27 (22-30) mmol/L Anion Gap 10 mmol/L BUN 17 (7-17) mg/dL Creatinine 0.78 (0.52-1.04) mg/dL Est GFR (CKD-EPI)AfAm 84 (>60 ml/min/1.73 sqM) Est GFR (CKD-EPI)NonAf 73 (>60 ml/min/1.73 sqM) Glucose 111 H (74-99) mg/dL Calcium 9.3 (8.4-10.2) mg/dL Total Bilirubin 0.6 (0.2-1.3) mg/dL AST 26 (14-36) U/L ALT 21 (9-52) U/L Alkaline Phosphatase 65 (38-126) U/L Total Protein 7.2 (6.3-8.2) g/dL Albumin 3.9 (3.5-5.0) g/dL Urine Color Yellow Urine Appearance Cloudy H (Clear) Urine pH 5.5 (5.0-8.0) Ur Specific [place] 1.017 (1.001-1.035) Urine Protein 1+ H (Negative) Urine Glucose (UA) Negative (Negative) Urine Ketones Negative (Negative) Urine Blood Negative (Negative) Urine Nitrite Negative (Negative) Urine Bilirubin Negative (Negative) Urine Urobilinogen <2.0 (<2.0) mg/dL Ur Leukocyte Esterase Moderate H (Negative) Urine RBC 2 (0-5) /hpf Urine WBC 5 (0-5) /hpf Ur Squamous Epith Cells 2 (0-4) /hpf Urine Bacteria Many H (None) /hpf Hyaline Casts 1 (0-2) /lpf Urine Mucus Few H (None) /hpf Disposition <Hernandez Paredes - Last Filed: 08/18/19 11:18> Is patient prescribed a controlled substance at d/c from ED?: No Time of Disposition: 11:31 <Anjel Gonsalez - Last Filed: 08/18/19 11:31> Clinical Impression: Cellulitis, leg Disposition: HOME SELF-CARE Condition: Stable Instructions (If sedation given, give patient instructions): Cellulitis (DC) Additional Instructions: Please take prescribed medication as directed. Please follow with primary care. To return to emergency department symptoms worsen. Prescriptions: Cephalexin [Keflex] 500 mg PO Q6HR #40 cap HYDROcodone/APAP 5-325MG [[place] 5-325] 1 tab PO Q6HR PRN 3 Days #10 tab PRN Reason: Pain Referrals: Ten Guerrero MD [Primary Care Provider] - 1-2 days
[2019-08-18 10:47] LABS: HCT 40.2 % (34.0-46.0); HGB 13.1 gm/dL (11.4-16.0); MCH 31.1 pg (25.0-35.0); MCHC 32.6 g/dL (31.0-37.0); MCV 95.6 fL (80.0-100.0); Mean Platelet Volume 7.8; Platelet Count 192 k/uL (150-450); RDW 13.7 % (11.5-15.5); WBC 9.1 k/uL (3.8-10.6)
--- NOTE | 2019-08-18 10:49 | US ---
EXAMINATION TYPE: US extremity nonvasculr ltd RT DATE OF EXAM: 08/18/2019 COMPARISON: NONE CLINICAL HISTORY: red, swelling, poss abscess. Right knee lump and redness. Scanned area of concern no abscess visualized. IMPRESSION: NO CYSTIC OR SOLID LESION IS SEEN.
[2019-08-18 10:59] LABS: Albumin 3.9 g/dL (3.5-5.0); Appearance,Urine Cloudy (Clear); Bacteria,Urine Many /hpf; Bilirubin,Urine Negative (Negative); Blood,Urine Negative (Negative); Calcium 9.3 mg/dL (8.4-10.2); Color,Urine Yellow; Glucose,Urine (UA) Negative (Negative); Hyaline Casts,Urine 1 /lpf (0-2); Ketones,Urine Negative (Negative); Leukocyte Esterase,Urine Moderate (Negative); Mucus,Urine Few /hpf; Nitrite,Urine Negative (Negative); PH, Urine 5.5 (5.0-8.0); Protein,Urine 1+ (Negative); RBC,Urine 2 /hpf (0-5); Specific Gravity,Urine 1.017 (1.001-1.035); Squamous Epithelial Cell,Urine 2 /hpf (0-4); Total Bilirubin 0.6 mg/dL (0.2-1.3); Total Protein 7.2 g/dL (6.3-8.2); Urobilinogen,Urine <2.0 mg/dL (<2.0); WBC,Urine 5 /hpf (0-5)
[2019-08-18] MEDS ORDERED: cefTRIAXone 1,000 MG VIAL (IM USE) IM STA (11:27)
[2019-08-18] MEDS ORDERED: cefTRIAXone IN SWFI 1,000 MG/10 ML SYRINGE IVP STA (11:33)
[2019-08-18 12:00] VITALS: BP 132/62; PULSE 64
== END 2019-08-18 11:59 | disposition home or self-care (01) ==
LOC: EC 09:40
DX: L03.115 Cellulitis of right lower limb (principal); R82.71 Bacteriuria; R39.15 Urgency of urination; R35.0 Frequency of micturition; R11.0 Nausea; I87.2 Venous insufficiency (chronic) (peripheral); G89.29 Other chronic pain; M54.5 Low back pain; E78.5 Hyperlipidemia, unspecified; I10 Essential (primary) hypertension; M19.90 Unspecified osteoarthritis, unspecified site; J30.2 Other seasonal allergic rhinitis; Z79.899 Other long term (current) drug therapy; Z53.20 Procedure and treatment not carried out because of patient's decision for unspecified reasons; Z88.2 Allergy status to sulfonamides; Z91.048 Other nonmedicinal substance allergy status; Z96.653 Presence of artificial knee joint, bilateral
CPT/HCPCS: 36415; 80053; 85027; 81001; 76882; 99284; 96374; J0696

== ENCOUNTER 2020-08-12 11:04 | Inpatient (IN) | payer MEDICARE, OTHER ==
[2020-08-12] MEDS ORDERED: FUROSEMIDE 40 MG TAB PO PRN (17:17)
[2020-08-12] MEDS ORDERED: AMMONIUM LACTATE 12% CREAM 140 GM TUBE TOPICAL PRN (17:17)
[2020-08-12] MEDS ORDERED: SODIUM CHLORIDE 0.9% 1,000 ML IV STA (17:25)
[2020-08-12] MEDS: HYDROcodone/APAP 10-325MG 1 EACH TAB PO PRN (17:40)
[2020-08-12] MEDS: ENOXAPARIN 40 MG/0.4 ML SYRINGE SQ SCH (17:40)
--- NOTE | 2020-08-12 17:56 | P.HPIM ---
History of Present Illness H&P Date: 08/12/20 Chief Complaint: right lower extremity cellulitis Dania Vergara, is an 79-year-old female who presented to the office with right lower extremity swelling erythema tenderness and copious amount of serous exudate from the right lower extremity, erythema extended from the foot all the way to just below the knee, patient was treated as outpatient with oral Keflex she was seen by Dr. Mcrae as outpatient however her condition continued to worsen patient return to the office on 08/12/2020 and was admitted directly to medical floor she was started on IV cefazolin blood culture CBC and CMP were ordered consultation for Dr. Babin infectious disease consultation was request ed. patient has a known history of hypertension, hyperlipidemia, borderline diabetes mellitus, and previous history of multiple episodes of bilateral lower extremity cellulitis, history of morbid obesity, history of osteoarthritis with bilateral total nee arthroplasty in the past. on review of system patient is complaining of right lower extremity pain and tenderness and swelling she has serous discharge from multiple small ulceration in the right lower extremityerythema is extending from the foot all the way up to below the knee otherwise she denies any complaints there is no fever or chills no headache or dizziness no chest pain no shortness of breath no cough no nausea or vomiting no abdominal pain no diarrhea no blood in the stools no burning with urination no frequency or urgency and no hematuria. Past Medical History Past Medical History: GERD/Reflux, Hypertension, Osteoarthritis (OA), Skin Disorder Additional Past Medical History / Comment(s): Pt denies hyperlipidemia, chronic low back/cervical and bilateral shoulder pain, benign colon polyps/diverticular disease, bilateral lower extremity cellulitis but R leg much more often, UTIs, polynephritis, hiatal hernia many years ago. History of Any Multi-Drug Resistant Organisms: None Reported Past Surgical History: Appendectomy, Cholecystectomy, Joint Replacement, Tubal Ligation Additional Past Surgical History / Comment(s): Bilateral total knee arthroplasties, pain clinic procedures, colonoscopies/benign polypectomies, bilateral cataract removals/lens implants, PICC line. Past Anesthesia/Blood Transfusion Reactions: No Reported Reaction Smoking Status: Never smoker - Past Family History Mother Family Medical History: Cancer Additional Family Medical History / Comment(s): BREAST Father Family Medical History: Cancer Additional Family Medical History / Comment(s): LIVER CANCER/HEART PROBLEMS Son(s) Family Medical History: Cancer Additional Family Medical History / Comment(s): MULTIPLE MYELOMA/bone cancer- PASSED 2015 Medications and Allergies Home Medications Medication Instructions Recorded Confirmed Type Furosemide [Lasix] 40 mg PO DAILY PRN 01/18/17 08/12/20 History atenoloL [Atenolol] 25 mg PO BID 01/18/17 08/12/20 History hydrALAZINE HCL 25 mg PO BID 01/18/17 08/12/20 History Ergocalciferol (Vitamin D2) 50,000 unit PO THAPA 02/21/17 08/12/20 History [Vitamin D2] HYDROcodone/APAP 10-325MG [[place] 1 tab PO Q8HR PRN 02/21/17 08/12/20 History 10-325] Montelukast [Singulair] 10 mg PO DAILY 08/18/19 08/12/20 History Potassium Chloride [K-Tab ER] 10 meq PO DAILY 08/18/19 08/12/20 History Simvastatin [Zocor] 20 mg PO HS 08/18/19 08/12/20 History Ammonium Lactate Cream [Lac-Hydrin 1 applic TOPICAL BID PRN 08/12/20 08/12/20 History 12% Cream] Cephalexin [Keflex] 500 mg PO QID 08/12/20 08/12/20 History Allergies Allergy/AdvReac Type Severity Reaction Status Date / Time adhesive tape Allergy Unknown Rash/Hives Verified 08/12/20 13:28 Sulfa (Sulfonamide Allergy Rash/Hives Verified 08/12/20 13:28 Antibiotics) Physical Exam Vitals: Vital Signs Temp Pulse Resp BP Pulse Ox 08/12/20 11:48 98.5 F 68 16 153/76 96 Intake and Output 08/12/20 08/12/20 08/12/20 06:59 14:59 22:59 Other: # Voids 1 Weight 102.058 kg in general patient is alert and oriented 3 in no apparent distress HEENT head normocephalic and atraumatic Neck is supple no JVD no goiter no lymphadenopathy or bruit Chest exam reveals clear respiratory sounds no crackles no wheezing Cardiac exam reveals regular heart sounds S1 and S2 no gallops no murmurs Abdomen is soft nontender no organomegaly with normal bowel sounds Extremity exam reveals 1+ edema on the left 3+ edema on the right there is erythema and tenderness in the right lower extremity there is multiple small ulceration was clear serous discharge Neurological examination reveals no gross focal deficit Thrombosis Risk Factor Assmnt - Choose All That Apply Any of the Below Risk Factors Present?: Yes Each Factor Represents 1 point: Obesity (BMI >25), Swollen legs (current) Other Risk Factors: Yes Each Risk Factor Represents 3 Points: Age 75 years or older Other congenital or acquired thrombophilia - If yes, enter type in comment: No Thrombosis Risk Factor Assessment Total Risk Factor Score: 5 Thrombosis Risk Factor Assessment Level: High Risk Assessment and Plan Plan: 1. right lower extremity cellulitis failed outpatient treatment 2. underlying history of hypertension 3. Underlying history of hyperlipidemia 4. Underlying history of borderline diabetes will check hemoglobin A1c 5. Previous episodes of bilateral lower extremity cellulitis in the past 6. history of diverticulosis 7. History of osteoarthritis with bilateral total knee arthroplasty in the past at this time patient is admitted to medical floor she was started on IV cefazolin check labs check blood culture consult Dr. Babin will follow closely
[2020-08-12 18:38] LABS: ALT 13 U/L (4-34); AST 25 U/L (14-36); African American GFR (CKD) 83 (>60 ml/min/1.73 sqM); Albumin 3.8 g/dL (3.5-5.0); Albumin/Globulin Ratio 1.4; Alkaline Phosphatase 76 U/L (38-126); Anion Gap 6 mmol/L; Blood Urea Nitrogen 12 mg/dL (7-17); Calcium 9.3 mg/dL (8.4-10.2); Carbon Dioxide 31 mmol/L (22-30); Chloride 104 mmol/L (98-107); Globulin 2.8 g/dL; Glucose 88 mg/dL (74-99); Non-African American GFR(CKD) 72 (>60 ml/min/1.73 sqM); Sodium 141 mmol/L (137-145); Total Bilirubin 0.8 mg/dL (0.2-1.3); Total Protein 6.6 g/dL (6.3-8.2)
[2020-08-12 18:39] LABS: Basophils # (A) 0.1 k/uL (0-0.2); Basophils % (A) 1 %; Eosinophils # (A) 0.2 k/uL (0-0.7); Eosinophils % (A) 3 %; HCT 41.6 % (34.0-46.0); Lymphocytes # (A) 1.2 k/uL (1.0-4.8); Lymphocytes % (A) 17 %; MCH 31.4 pg (25.0-35.0); MCHC 31.4 g/dL (31.0-37.0); MCV 100.3 fL (80.0-100.0); Mean Platelet Volume 8.1; Monocytes # (A) 0.6 k/uL (0-1.0); Monocytes % (A) 8 %; Neutrophils # (A) 4.9 k/uL (1.3-7.7); Neutrophils % (A) 69 %; Platelet Count 209 k/uL (150-450); RBC 4.15 m/uL (3.80-5.40); RDW 12.8 % (11.5-15.5); WBC 7.2 k/uL (3.8-10.6)
[2020-08-12] MEDS: atenoloL 25 MG TAB PO SCH (20:32)
[2020-08-12] MEDS: ATORVASTATIN 10 MG TAB PO SCH (20:32)
[2020-08-12] MEDS: hydrALAZINE HCL 25 MG TAB PO SCH (20:32)
[2020-08-13] MEDS: HYDROcodone/APAP 10-325MG 1 EACH TAB PO PRN (02:34)
[2020-08-13 06:01] LABS: Basophils # (A) 0.1 k/uL (0-0.2); Basophils % (A) 1 %; Eosinophils # (A) 0.3 k/uL (0-0.7); Eosinophils % (A) 5 %; HCT 39.9 % (34.0-46.0); HGB 12.7 gm/dL (11.4-16.0); Hypochromasia Slight; Lymphocytes # (A) 1.4 k/uL (1.0-4.8); Lymphocytes % (A) 25 %; MCH 31.9 pg (25.0-35.0); MCHC 31.8 g/dL (31.0-37.0); MCV 100.4 fL (80.0-100.0); Mean Platelet Volume 7.8; Monocytes # (A) 0.5 k/uL (0-1.0); Monocytes % (A) 8 %; Neutrophils # (A) 3.2 k/uL (1.3-7.7); Neutrophils % (A) 58 %; Platelet Count 204 k/uL (150-450); RBC 3.97 m/uL (3.80-5.40); RDW 12.9 % (11.5-15.5); WBC 5.6 k/uL (3.8-10.6)
[2020-08-13] MEDS: POTASSIUM CHLORIDE ER 10 MEQ TAB.ER.PRT PO SCH (08:29)
[2020-08-13] MEDS: HYDROcodone/APAP 7.5-325MG 1 EACH TAB PO PRN ×2 (08:29→21:25)
[2020-08-13] MEDS: MONTELUKAST 10 MG TAB PO SCH (08:29)
[2020-08-13] MEDS: PANTOPRAZOLE 40 MG TABLET PO SCH (08:29)
[2020-08-13] MEDS: hydrALAZINE HCL 25 MG TAB PO SCH ×2 (08:29→21:25)
[2020-08-13] MEDS: atenoloL 25 MG TAB PO SCH ×2 (08:29→21:25)
[2020-08-13] MEDS ORDERED: HYDROmorphone 0.5 MG/0.5 ML SYRINGE IVP PRN (09:40)
[2020-08-13] MEDS ORDERED: HYDROcodone/APAP 10-325MG 1 EACH TAB PO PRN (09:41)
[2020-08-13 09:49] LABS: Albumin 3.6 g/dL (3.80-4.90); Albumin/Globulin Ratio 1.8 (1.60-3.17); Anion Gap 8.6 mmol/L (4.00-12.00); BUN/Creat Ratio 17.78 Ratio (12.00-20.00); Calcium 9.1 mg/dL (8.7-10.3); Carbon Dioxide 28.4 mmol/L (21.6-31.8); Non-African American GFR(CKD) 60.4 (60.0-200.0); Potassium 4.4 mmol/L (3.5-5.5); Total Bilirubin 0.4 mg/dL (0.3-1.2); Total Protein 5.6 g/dL (6.2-8.2)
--- NOTE | 2020-08-13 10:03 | P.PN ---
Subjective Progress Note Date: 08/13/20 Dania Vergara, is an 79-year-old female who presented to the office with right lower extremity swelling erythema tenderness and copious amount of serous exudate from the right lower extremity, erythema extended from the foot all the way to just below the knee, patient was treated as outpatient with oral Keflex she was seen by Dr. Mcrae as outpatient however her condition continued to worsen patient return to the office on 08/12/2020 and was admitted directly to medical floor she was started on IV cefazolin blood culture CBC and CMP were ordered consultation for Dr. Babin infectious disease consultation was requested. patient has a known history of hypertension, hyperlipidemia, borderline diabetes mellitus, and previous history of multiple episodes of bilateral lower extremity cellulitis, history of morbid obesity, history of osteoarthritis with bilateral total nee arthroplasty in the past. on review of system patient is complaining of right lower extremity pain and tenderness and swelling she has serous discharge from multiple small ulceration in the right lower extremityerythema is extending from the foot all the way up to below the knee otherwise she denies any complaints there is no fever or chills no headache or dizziness no chest pain no shortness of breath no cough no nausea or vomiting no abdominal pain no diarrhea no blood in the stools no burning with urination no frequency or urgency and no hematuria. On 08/12/2020 Patient is alert and oriented x 3. does report some increased discomfort to right lower extremity. Will increase norco and add diuladid. Awaiting infectious disease consult. right leg redness and drainage does appear to be improving. Denies any chest pain or shortness of breath. Denies any nausea or vomiting. Denies any urinary burning or frequency. Objective - Vital Signs Vital signs: Vital Signs Temp 98 F 08/13/20 05:29 Pulse 92 08/13/20 05:29 Resp 18 08/13/20 05:29 BP 113/68 08/13/20 05:29 Pulse Ox 96 08/13/20 05:29 Intake & Output 08/12/20 08/13/20 08/13/20 18:59 06:59 18:59 Intake Total 230 Balance 230 Weight 102.058 kg Intake: Intake, IV Titration 230 Amount Sodium Chloride 0.9% 1, 230 000 ml @ 20 mls/hr IV . Q24H [facility] Rx#:[id number] Other: Voiding Method Toilet # Voids 1 - Exam in general patient is alert and oriented 3 in no apparent distress HEENT head normocephalic and atraumatic Neck is supple no JVD no goiter no lymphadenopathy or bruit Chest exam reveals clear respiratory sounds no crackles no wheezing Cardiac exam reveals regular heart sounds S1 and S2 no gallops no murmurs Abdomen is soft nontender no organomegaly with normal bowel sounds Extremity exam reveals 1+ edema on the left 3+ edema on the right there is e rythema and tenderness in the right lower extremity there is multiple small ulceration was clear serous discharge Neurological examination reveals no gross focal deficit - Labs CBC & Chem 7: 08/13/20 05:22 08/13/20 05:22 Labs: Abnormal Lab Results - Last 24 Hours (Table) 08/12/20 08/12/20 08/13/20 Range/Units 17:41 17:41 05:22 MCV 100.3 H 100.4 H (80.0-100.0) fL Carbon Dioxide 31 H (22-30) mmol/L Total Protein (6.2-8.2) g/dL Albumin (3.80-4.90) g/dL 08/13/20 Range/Units 05:22 MCV (80.0-100.0) fL Carbon Dioxide (22-30) mmol/L Total Protein 5.6 L (6.2-8.2) g/dL Albumin 3.60 L (3.80-4.90) g/dL Assessment and Plan Assessment: 1. right lower extremity cellulitis failed outpatient treatment 2. underlying history of hypertension 3. Underlying history of hyperlipidemia 4. Underlying history of borderline diabetes will check hemoglobin A1c 5. Previous episodes of bilateral lower extremity cellulitis in the past 6. history of diverticulosis 7. History of osteoarthritis with bilateral total knee arthroplasty in the past DVT prophylaxsis Lovenox. GI prophylaxis protonix remains on Kefzol for IV antibiotic ID consult [facility] pending
[2020-08-13] MEDS ORDERED: NYSTAT-TRIAMCIN 100,000-0.1 UNIT/GM-% CREAM 30 GM TUBE TOPICAL SCH (14:00)
[2020-08-13] MEDS: NYSTATIN 100,000UNIT/GM CREAM 30 GM TUBE TOPICAL SCH (14:18)
[2020-08-13] MEDS: TRIAMCINOLONE 0.1% CREAM 80 GM TUBE TOPICAL SCH (14:18)
[2020-08-13] MEDS: ENOXAPARIN 40 MG/0.4 ML SYRINGE SQ SCH (17:44)
[2020-08-13] MEDS: ATORVASTATIN 10 MG TAB PO SCH (21:25)
[2020-08-14] MEDS: HYDROcodone/APAP 7.5-325MG 1 EACH TAB PO PRN (04:28)
[2020-08-14 04:58] LABS: Basophils % (A) 0 %; Eosinophils # (A) 0.2 k/uL (0-0.7); Eosinophils % (A) 4 %; HCT 38.8 % (34.0-46.0); Lymphocytes % (A) 19 %; MCH 31.2 pg (25.0-35.0); MCHC 30.9 g/dL (31.0-37.0); Macrocytosis Slight; Mean Platelet Volume 7.9; Monocytes # (A) 0.5 k/uL (0-1.0); Monocytes % (A) 9 %; Neutrophils # (A) 3.4 k/uL (1.3-7.7); Neutrophils % (A) 65 %; Platelet Count 216 k/uL (150-450); RBC 3.84 m/uL (3.80-5.40); RDW 13.2 % (11.5-15.5); WBC 5.3 k/uL (3.8-10.6)
[2020-08-14] MEDS: MONTELUKAST 10 MG TAB PO SCH (08:14)
[2020-08-14] MEDS: hydrALAZINE HCL 25 MG TAB PO SCH ×2 (08:14→21:32)
[2020-08-14] MEDS: atenoloL 25 MG TAB PO SCH ×2 (08:14→21:32)
[2020-08-14] MEDS: POTASSIUM CHLORIDE ER 10 MEQ TAB.ER.PRT PO SCH (08:14)
[2020-08-14] MEDS: PANTOPRAZOLE 40 MG TABLET PO SCH (08:14)
[2020-08-14] MEDS: NYSTATIN 100,000UNIT/GM CREAM 30 GM TUBE TOPICAL SCH (08:15)
[2020-08-14] MEDS: TRIAMCINOLONE 0.1% CREAM 80 GM TUBE TOPICAL SCH (08:15)
--- NOTE | 2020-08-14 09:19 | P.CONS ---
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 patient has been evaluated in outpatient setting by vascular surgery at [facility] center has been treated with a compression dressing changes and oral Keflex which, patient did have a follow-up visit with her primary care physician yesterday which was noticed to have more erythema and some clear drainage from the right leg patient subsequently has been admitted to the hospital infectious disease was consulted for further management of antibiotic therapy, the patient denies having any fever or chills, she did complain of pain to the right leg to be more of a throbbing intensity is about 5-10 and no radiation she did have diffuse swelling and minimal serous drainage no foul-smelling patient on admission to hospital was afebrile did have a normal white count the patient was started on cefazolin 1 g every 8 hours and infectious disease was consulted for further management of antibiotic therapy Review of Systems Positive point has been mentioned in the HPI rest of the systems are negative Past Medical History Past Medical History: GERD/Reflux, Hypertension, Osteoarthritis (OA), Skin Dis order Additional Past Medical History / Comment(s): Pt denies hyperlipidemia, chronic low back/cervical and bilateral shoulder pain, benign colon polyps/diverticular disease, bilateral lower extremity cellulitis but R leg much more often, UTIs, polynephritis, hiatal hernia many years ago. History of Any Multi-Drug Resistant Organisms: None Reported Past Surgical History: Appendectomy, Cholecystectomy, Joint Replacement, Tubal Ligation Additional Past Surgical History / Comment(s): Bilateral total knee arthroplasties, pain clinic procedures, colonoscopies/benign polypectomies, bilateral cataract removals/lens implants, PICC line. Past Anesthesia/Blood Transfusion Reactions: No Reported Reaction Smoking Status: Never smoker - Past Family History Mother Family Medical History: Cancer Additional Family Medical History / Comment(s): BREAST Father Family Medical History: Cancer Additional Family Medical History / Comment(s): LIVER CANCER/HEART PROBLEMS Son(s) Family Medical History: Cancer Additional Family Medical History / Comment(s): MULTIPLE MYELOMA/bone cancer- PASSED 2015 Medications and Allergies Home Medications Medication Instructions Recorded Confirmed Type Furosemide [Lasix] 40 mg PO DAILY PRN 01/18/17 08/12/20 History atenoloL [Atenolol] 25 mg PO BID 01/18/17 08/12/20 History hydrALAZINE HCL 25 mg PO BID 01/18/17 08/12/20 History Ergocalciferol (Vitamin D2) 50,000 unit PO THAPA 02/21/17 08/12/20 History [Vitamin D2] HYDROcodone/APAP 10-325MG [[place] 1 tab PO Q8HR PRN 02/21/17 08/12/20 History 10-325] Montelukast [Singulair] 10 mg PO DAILY 08/18/19 08/12/20 History Potassium Chloride [K-Tab ER] 10 meq PO DAILY 08/18/19 08/12/20 History Simvastatin [Zocor] 20 mg PO HS 08/18/19 08/12/20 History Ammonium Lactate Cream [Lac-Hydrin 1 applic TOPICAL BID PRN 08/12/20 08/12/20 History 12% Cream] Cephalexin [Keflex] 500 mg PO QID 08/12/20 08/12/20 History Allergies Allergy/AdvReac Type Severity Reaction Status Date / Time adhesive tape Allergy Unknown Rash/Hives Verified 08/12/20 13:28 Sulfa (Sulfonamide Allergy Rash/Hives Verified 08/12/20 13:28 Antibiotics) Physical Exam Vitals: Vital Signs Temp Pulse Resp BP Pulse Ox 08/13/20 12:01 98.4 F 54 L 16 118/43 95 08/13/20 05:29 98 F 92 18 113/68 96 08/12/20 20:27 97.8 F 68 20 128/61 91 L Intake and Output 08/12/20 08/13/20 08/13/20 22:59 06:59 14:59 Intake Total 70 160 Balance 70 160 Intake: Intake, IV Titration 70 160 Amount Sodium Chloride 0.9% 1, 70 160 000 ml @ 20 mls/hr IV . Q24H [facility] Rx#:[id number] Other: Voiding Method Toilet Toilet # Voids 1 Weight 102.058 kg GENERAL DESCRIPTION: An 79 female up in the chair, no distress. No tachypnea or accessory muscle of respiration use. HEENT: Shows Pallor , no scleral icterus. Oral mucous membrane is dry. No pharyngeal erythema or thrush NECK: Trachea central, no thyromegaly. LUNGS: Unlabored breathing. Clear to auscultation anteriorly. No wheeze or crackle. HEART: S1, S2, regular rate and rhythm. No loud murmur ABDOMEN: Soft, no tenderness , guarding or rigidity, no organomegaly EXTREMITIES: Right lower extremity with swelling redness minimal serous drainage SKIN: No rash, no masses palpable. NEUROLOGICAL: The patient is awake, alert, oriented x3, mood and affect normal. Results CBC & Chem 7: 08/14/20 04:24 08/13/20 05:22 Labs: Abnormal Lab Results - Last 24 Hours (Table) 08/12/20 08/12/20 08/13/20 Range/Units 17:41 17:41 05:22 MCV 100.3 H 100.4 H (80.0-100.0) fL Carbon Dioxide 31 H (22-30) mmol/L Total Protein (6.2-8.2) g/dL Albumin (3.80-4.90) g/dL 08/13/20 Range/Units 05:22 MCV (80.0-100.0) fL Carbon Dioxide (22-30) mmol/L Total Protein 5.6 L (6.2-8.2) g/dL Albumin 3.60 L (3.80-4.90) g/dL Assessment and Plan Assessment: 1-patient with acute right lower extremity cephalitis in this patient did have superficial ulceration and minimal clear drainage. Outpatient oral Keflex therapy consult for possible burden of disease and likely need to cover for the gram-positive skin janie selected out gram-negative infection or MRSA 2-sulfa ALLERGY (1) Cellulitis of right leg Current Visit: Yes Status: Acute Code(s): L03.115 - CELLULITIS OF RIGHT LOWER LIMB SNOMED Code(s): 894000368 Plan: 1- adjusted doses of cefazolin to 2 g every 8 hours 2-local care to the right leg with Mycolog cream daily followed by Daniel wrap from just above the toe to below the knee We will follow on clinical condition and cultures to further adjust medication if needed Thank you for this consultation will follow this patient with you Time with Patient: Greater than 30
[2020-08-14 09:36] LABS: African American GFR (CKD) 80.7 (60.0-200.0); Albumin 3.3 g/dL (3.80-4.90); Albumin/Globulin Ratio 1.74 (1.60-3.17); Anion Gap 7.5 mmol/L (4.00-12.00); BUN/Creat Ratio 22.5 Ratio (12.00-20.00); Calcium 8.8 mg/dL (8.7-10.3); Carbon Dioxide 30.5 mmol/L (21.6-31.8); Globulin 1.9 g/dL (1.6-3.3); Non-African American GFR(CKD) 69.6 (60.0-200.0); Potassium 4.7 mmol/L (3.5-5.5); Total Bilirubin 0.3 mg/dL (0.2-1.2); Total Protein 5.2 g/dL (6.2-8.2)
[2020-08-14] MEDS: ENOXAPARIN 40 MG/0.4 ML SYRINGE SQ SCH (16:43)
--- NOTE | 2020-08-14 16:54 | P.PN ---
Subjective Progress Note Date: 08/14/20 Dania Vergara, is an 79-year-old female who presented to the office with right lower extremity swelling erythema tenderness and copious amount of serous exudate from the right lower extremity, erythema extended from the foot all the way to just below the knee, patient was treated as outpatient with oral Keflex she was seen by Dr. Mcrae as outpatient however her condition continued to worsen patient return to the office on 08/12/2020 and was admitted directly to medical floor she was started on IV cefazolin blood culture CBC and CMP were ordered consultation for Dr. Babin infectious disease consultation was requested. patient has a known history of hypertension, hyperlipidemia, borderline diabetes mellitus, and previous history of multiple episodes of bilateral lower extremity cellulitis, history of morbid obesity, history of osteoarthritis with bilateral total nee arthroplasty in the past. on review of system patient is complaining of right lower extremity pain and tenderness and swelling she has serous discharge from multiple small ulceration in the right lower extremityerythema is extending from the foot all the way up to below the knee otherwise she denies any complaints there is no fever or chills no headache or dizziness no chest pain no shortness of breath no cough no nausea or vomiting no abdominal pain no diarrhea no blood in the stools no burning with urination no frequency or urgency and no hematuria. On 08/14/2020 patient was seen and examined on the medical floor she is alert and oriented 3 in no apparent distress there is no fever or chills no headache or dizziness no chest pain no shortness of breath no cough no nausea or vomiting no abdominal pain no diarrhea no blood in the stools no burning with urination no frequency or urgency and no hematuria. Lower extremity swelling erythema and tenderness are improving significantly Objective - Vital Signs Vital signs: Vital Signs Temp 97.6 F 08/14/20 11:09 Pulse 62 08/14/20 11:09 Resp 18 08/14/20 11:09 BP 117/65 08/14/20 11:09 Pulse Ox 94 L 08/14/20 11:09 Intake & Output 08/13/20 08/14/20 08/14/20 18:59 06:59 18:59 Intake Total 210 1470 Balance 210 1470 Intake: Intake, IV Titration 210 290 Amount Sodium Chloride 0.9% 1, 160 240 000 ml @ 20 mls/hr IV . Q24H [facility] Rx#:[id number] ceFAZolin 1,000 mg In 50 Sodium Chloride 0.9% 50 ml @ 100 mls/hr IVPB Q8HR [facility] Rx#:[id number] ceFAZolin 2 gm In Sodium 50 Chloride 0.9% 50 ml @ 100 mls/hr IVPB Q8HR [facility] Rx# :[id number] Oral 1180 Other: Voiding Method Toilet Toilet Toilet # Voids 2 - Exam in general patient is alert and oriented 3 in no apparent distress HEENT head normocephalic and atraumatic Neck is supple no JVD no goiter no lymphadenopathy or bruit Chest exam reveals clear respiratory sounds no crackles no wheezing Cardiac exam reveals regular heart sounds S1 and S2 no gallops no murmurs Abdomen is soft nontender no organomegaly with normal bowel sounds Extremity exam reveals 1+ edema on the left 3+ edema on the right there is erythema and tenderness in the right lower extremity there is multiple small ulceration was clear serous discharge Neurological examination reveals no gross focal deficit - Labs CBC & Chem 7: 08/14/20 04:24 08/14/20 04:24 Labs: Abnormal Lab Results - Last 24 Hours (Table) 08/14/20 08/14/20 Range/Units 04:24 04:24 MCV 101.0 H (80.0-100.0) fL MCHC 30.9 L (31.0-37.0) g/dL BUN/Creatinine Ratio 22.50 H (12.00-20.00) Ratio Total Protein 5.2 L (6.2-8.2) g/dL Albumin 3.30 L (3.80-4.90) g/dL Microbiology - Last 24 Hours (Table) 08/12/20 17:41 Blood Culture - Preliminary Blood No Growth after 24 hours Assessment and Plan Plan: 1. right lower extremity cellulitis failed outpatient treatment, started on IV antibiotics, infectious disease consultation requested 2. underlying history of hypertension 3. Underlying history of hyperlipidemia 4. Underlying history of borderline diabetes will check hemoglobin A1c 5. Previous episodes of bilateral lower extremity cellulitis in the past 6. history of diverticulosis 7. History of osteoarthritis with bilateral total knee arthroplasty in the past at this time patient is admitted to medical floor she was started on IV cefazolin check labs check blood culture consult Dr. Babin will follow closely
[2020-08-14 19:55] VITALS: RESP 16
[2020-08-14] MEDS: ATORVASTATIN 10 MG TAB PO SCH (21:32)
--- NOTE | 2020-08-15 00:09 | PN ---
PROGRESS NOTE DATE OF SERVICE: 08/14/2020 REASON FOR FOLLOWUP: Right lower extremity wound and cellulitis. INTERVAL HISTORY: The patient is currently afebrile. The patient is breathing comfortably. Did mention overall swelling and pain to the right leg has decreased. No chest pain or cough. No abdominal pain or diarrhea. PHYSICAL EXAMINATION: Blood pressure is 146/72 with a pulse of 63, temperature 98.3. She is 92% on room air. General description is an elderly female up in the chair in no distress. RESPIRATORY SYSTEM: Unlabored breathing, clear to auscultation anteriorly. HEART: S1, S2. Regular rate and rhythm. ABDOMEN: Soft, no tenderness. LABS: Hemoglobin is 12, white count 5.3 BUN of 18, creatinine 0.8. DIAGNOSTIC IMPRESSION AND PLAN: Patient with acute right lower extremity cellulitis with diffuse swelling and redness. The patient had clinically responded to the Mycolog cream in addition to the cefazolin to continue. Will monitor clinical course closely. MMODL / IJN: [id number] /
[2020-08-15 05:28] LABS: Basophils % (A) 1 %; Eosinophils # (A) 0.2 k/uL (0-0.7); Eosinophils % (A) 4 %; HCT 39.8 % (34.0-46.0); HGB 12.2 gm/dL (11.4-16.0); Lymphocytes % (A) 17 %; MCH 30.8 pg (25.0-35.0); MCHC 30.8 g/dL (31.0-37.0); MCV 100.1 fL (80.0-100.0); Mean Platelet Volume 7.7; Monocytes # (A) 0.6 k/uL (0-1.0); Monocytes % (A) 10 %; Neutrophils # (A) 3.9 k/uL (1.3-7.7); Neutrophils % (A) 66 %; Platelet Count 219 k/uL (150-450); RBC 3.97 m/uL (3.80-5.40); RDW 13.2 % (11.5-15.5); WBC 5.8 k/uL (3.8-10.6)
[2020-08-15] MEDS: POTASSIUM CHLORIDE ER 10 MEQ TAB.ER.PRT PO SCH (08:30)
[2020-08-15] MEDS: MONTELUKAST 10 MG TAB PO SCH (08:30)
[2020-08-15] MEDS: atenoloL 25 MG TAB PO SCH (08:30)
[2020-08-15] MEDS: PANTOPRAZOLE 40 MG TABLET PO SCH (08:30)
[2020-08-15] MEDS: hydrALAZINE HCL 25 MG TAB PO SCH (08:30)
[2020-08-15] MEDS: NYSTATIN 100,000UNIT/GM CREAM 30 GM TUBE TOPICAL SCH (08:31)
[2020-08-15] MEDS: TRIAMCINOLONE 0.1% CREAM 80 GM TUBE TOPICAL SCH (08:31)
[2020-08-15 10:19] LABS: ALT <8 U/L (8-44); AST 22 U/L (13-35); African American GFR (CKD) 80.7 (60.0-200.0); Albumin/Globulin Ratio 1.75 (1.60-3.17); Alkaline Phosphatase 61 U/L (41-126); Calcium 9.5 mg/dL (8.7-10.3); Carbon Dioxide 30.4 mmol/L (21.6-31.8); Chloride 106 mmol/L (96-109); Glucose 108 mg/dL (70-110); Non-African American GFR(CKD) 69.6 (60.0-200.0); Potassium 4.4 mmol/L (3.5-5.5); Sodium 144 mmol/L (135-145); Total Bilirubin 0.2 mg/dL (0.3-1.2); Total Protein 5.5 g/dL (6.2-8.2)
[2020-08-15 12:04] VITALS: BP 118/70; PULSE 63; TEMP 98.2
--- NOTE | 2020-08-15 12:31 | P.DS ---
Providers Date of admission: 08/12/20 11:15 Expected date of discharge: 08/15/20 Attending physician: Ten Guerrero Consults: 08/12/20 17:20 Consult Physician Routine Consulting Provider: Caleb Babin Consult Reason/Comments: lower extremity cellulitis Do you want consulting provider notified?: Yes Primary care physician: Ten Guerrero [facility] Course: Discharge diagnosis 1. right lower extremity cellulitis failed outpatient treatment, started on IV antibiotics, infectious disease consultation requested 2. underlying history of hypertension 3. Underlying history of hyperlipidemia 4. Underlying history of borderline diabetes will check hemoglobin A1c 5. Previous episodes of bilateral lower extremity cellulitis in the past 6. history of diverticulosis 7. History of osteoarthritis with bilateral total knee arthroplasty in the past Hospital course Dania Vergara, is an 79-year-old female who presented to the office with right lower extremity swelling erythema tenderness and copious amount of serous exudate from the right lower extremity, erythema extended from the foot all the way to just below the knee, patient was treated as outpatient with oral Keflex she was seen by Dr. Mcrae as outpatient however her condition continued to worsen patient return to the office on 08/12/2020 and was admitted directly to medical floor she was started on IV cefazolin blood culture CBC and CMP were ordered consultation for Dr. Babin infectious disease consultation was requested. patient has a known history of hypertension, hyperlipidemia, borderline diabetes mellitus, and previous history of multiple episodes of bilateral lower extremity cellulitis, history of morbid obesity, history of osteoarthritis with bilateral total nee arthroplasty in the past. on review of system patient is complaining of right lower extremity pain and tenderness and swelling she has serous discharge from multiple small ulceration in the right lower extremityerythema is extending from the foot all the way up to below the knee otherwise she denies any complaints there is no fever or chills no headache or dizziness no chest pain no shortness of breath no cough no nausea or vomiting no abdominal pain no diarrhea no blood in the stools no burning with urination no frequency or urgency and no hematuria. On 08/14/2020 patient was seen and examined on the medical floor she is alert and oriented 3 in no apparent distress there is no fever or chills no headache or dizziness no chest pain no shortness of breath no cough no nausea or vomiting no abdominal pain no diarrhea no blood in the stools no burning with urination no frequency or urgency and no hematuria. Lower extremity swelling erythema and tenderness are improving significantly On 08/15/2020 she is alert and oriented 3. Patient is eager to go home. right lower extremity has improved. Antibiotics upon discharge will be determined by ID. This time patient denies chest pain or shortness breath. Patient denies nausea vomiting or diarrhea. Patient denies any urinary burning or frequency Patient Condition at Discharge: Stable Plan - Discharge Summary Discharge Rx Participant: No New Discharge Prescriptions: Continue hydrALAZINE HCL 25 mg PO BID atenoloL [Atenolol] 25 mg PO BID Furosemide [Lasix] 40 mg PO DAILY PRN PRN Reason: Edema HYDROcodone/APAP 10-325MG [[place] 10-325] 1 tab PO Q8HR PRN PRN Reason: Pain Ergocalciferol (Vitamin D2) [Vitamin D2] 50,000 unit PO THAPA Simvastatin [Zocor] 20 mg PO HS Montelukast [Singulair] 10 mg PO DAILY Potassium Chloride [K-Tab ER] 10 meq PO DAILY Ammonium Lactate Cream [Lac-Hydrin 12% Cream] 1 applic TOPICAL BID PRN PRN Reason: Rash No Action Cephalexin [Keflex] 500 mg PO QID Discharge Medication List Furosemide [Lasix] 40 mg PO DAILY PRN 01/18/17 [History] atenoloL [Atenolol] 25 mg PO BID 01/18/17 [History] hydrALAZINE HCL 25 mg PO BID 01/18/17 [History] Ergocalciferol (Vitamin D2) [Vitamin D2] 50,000 unit PO THAPA 02/21/17 [History] HYDROcodone/APAP 10-325MG [[place] 10-325] 1 tab PO Q8HR PRN 02/21/17 [History] Montelukast [Singulair] 10 mg PO DAILY 08/18/19 [History] Potassium Chloride [K-Tab ER] 10 meq PO DAILY 08/18/19 [History] Simvastatin [Zocor] 20 mg PO HS 08/18/19 [History] Ammonium Lactate Cream [Lac-Hydrin 12% Cream] 1 applic TOPICAL BID PRN 08/12/20 [History] Cephalexin [Keflex] 500 mg PO QID 08/12/20 [History] Follow up Appointment(s)/Referral(s): [facility], [NON-STAFF] - 1 Week [facility], [REFERRING] - 1 Week Activity/Diet/Wound Care/Special Instructions: Activity as tolerated Diet heart healthy Discharge Disposition: HOME WITH HOME HEALTH SERVICES
--- NOTE | 2020-08-15 18:32 | PN ---
PROGRESS NOTE DATE OF SERVICE: 08/15/2020 REASON FOR FOLLOWUP: Right lower extremity cellulitis. INTERVAL HISTORY: The patient was seen on rounds early this afternoon. The patient has been afebrile. Overall feeling better. Right leg pain and discomfort are improved. No chest pain or cough. No abdominal pain or diarrhea. PHYSICAL EXAMINATION: Blood pressure 118/70 with a pulse of 63, temperature 98.2. She is 96% on room air. General description is an elderly female up in the chair in no distress. RESPIRATORY SYSTEM: Unlabored breathing. Clear to auscultation anteriorly. HEART: S1, S2. Regular rate and rhythm. ABDOMEN: Soft. No tenderness. Right leg was dressed. No obvious drainage on the dressing. LABS: White count 5.8, creatinine 0.8. Blood culture negative. DIAGNOSTIC IMPRESSION AND PLAN: Patient with acute right lower extremity cellulitis with venostasis ulcer. Overall improvement with local wound care with Mycolog cream; to continue along. Antibiotic was switched over to oral Keflex. Prescription was sent to the pharmacy. Close outpatient followup in the [facility]. MMODL / IJN: [id number] /
[2020-08-17] MEDS ORDERED: ERGOCALCIFEROL 50,000 UNIT CAP PO SCH (09:00)
== END 2020-08-15 14:24 | disposition home health service (06) | DRG 603 ==
LOC: 6NMEDSUR 11:15
PROVIDERS: ADMIT Internal Medicine; ATTEND Internal Medicine
DX: L03.115 Cellulitis of right lower limb (principal); L97.909 Non-pressure chronic ulcer of unspecified part of unspecified lower leg with unspecified severity; E78.5 Hyperlipidemia, unspecified; I10 Essential (primary) hypertension; I83.009 Varicose veins of unspecified lower extremity with ulcer of unspecified site; Z79.899 Other long term (current) drug therapy; Z80.0 Family history of malignant neoplasm of digestive organs; Z80.7 Family history of other malignant neoplasms of lymphoid, hematopoietic and related tissues; Z98.42 Cataract extraction status, left eye; Z98.41 Cataract extraction status, right eye; Z96.1 Presence of intraocular lens; Z96.653 Presence of artificial knee joint, bilateral; Z90.49 Acquired absence of other specified parts of digestive tract; M19.90 Unspecified osteoarthritis, unspecified site; Z80.3 Family history of malignant neoplasm of breast; Z82.49 Family history of ischemic heart disease and other diseases of the circulatory system; Z88.2 Allergy status to sulfonamides; Z98.51 Tubal ligation status; Z87.440 Personal history of urinary (tract) infections; M54.9 Dorsalgia, unspecified; G89.29 Other chronic pain; Z86.010 Personal history of colon polyps
CPT/HCPCS: 80053; 85025; 87040

== ENCOUNTER → 2021-02-27 | Outpatient (CLI) | payer MEDICARE, OTHER ==
--- NOTE | 2021-03-02 10:37 | MM ---
Reason for exam: screening (asymptomatic). Last mammogram was performed 2 years and 1 month ago. History: Patient is postmenopausal. Family history of premenopausal breast cancer in mother at age 28, breast cancer in maternal aunt at age 50, and breast cancer in maternal aunt at age 60. Physical Findings: A clinical breast exam by your physician is recommended on an annual basis and results should be correlated with mammographic findings. MG 3D Screening Mammo W/Cad Bilateral CC and MLO view(s) were taken. Prior study comparison: January 29, 2019, bilateral MG 3d screening mammo w/cad. August 15, 2017, bilateral MG screening mammo w CAD. Benign appearing bilateral calcifications. There is chronic nodularity in the right breast. No significant changes when compared with prior studies. ASSESSMENT: Benign, BI-RAD 2 RECOMMENDATION: Routine screening mammogram of both breasts in 1 year.
== END | disposition home or self-care (01) ==
LOC: RADMAMWWP 09:52
PROVIDERS: ATTEND Internal Medicine
DX: Z12.31 Encounter for screening mammogram for malignant neoplasm of breast (principal)
CPT/HCPCS: 77063; 77067

== ENCOUNTER 2021-03-23 15:47 | Inpatient (IN) | payer MEDICARE, OTHER ==
[2021-03-23] MEDS ORDERED: FUROSEMIDE 40 MG TAB PO PRN (19:09)
--- NOTE | 2021-03-23 20:00 | P.HPIM ---
History of Present Illness H&P Date: 03/23/21 Chief Complaint: Lower extremity cellulitis with ulcers Dania Vergara, is an 80-year-old female who presented to the office today with pain and swelling and erythema in bilateral lower extremities patient also had a large ulcer in the right calf area, patient stated that she has been going to the wound care clinic and has visiting nurse at home however cellulitis and also has been worsening, she was evaluated in the office and admitted directly to [facility] medical floor, she was started on IV antibiotics cefazolin 1 g IV every 8 hours, infectious disease consultation was requested. Past Medical History Past Medical History: GERD/Reflux, Hypertension, Osteoarthritis (OA), Skin Disorder Additional Past Medical History / Comment(s): Pt denies hyperlipidemia, chronic low back/cervical and bilateral shoulder pain, benign colon polyps/diverticular disease, bilateral lower extremity cellulitis but R leg much more often, UTIs, polynephritis, hiatal hernia many years ago. History of Any Multi-Drug Resistant Organisms: None Reported Past Surgical History: Appendectomy, Cholecystectomy, Joint Replacement, Tubal Ligation Additional Past Surgical History / Comment(s): Bilateral total knee arthroplasties, pain clinic procedures, colonoscopies/benign polypectomies, bilateral cataract removals/lens implants, PICC line. Past Anesthesia/Blood Transfusion Reactions: No Reported Reaction Past Psychological History: Anxiety, Depression Additional Psychological History / Comment(s): Pt resides alone with her dog. She uses a cane to ambulate. She drives. Her son lives across from her. Smoking Status: Never smoker Past Alcohol Use History: Rare Past Drug Use History: None Reported - Past Family History Mother Family Medical History: Cancer Additional Family Medical History / Comment(s): BREAST Father Family Medical History: Cancer Additional Family Medical History / Comment(s): LIVER CANCER/HEART PROBLEMS Son(s) Family Medical History: Cancer Additional Family Medical History / Comment(s): MULTIPLE MYELOMA/bone cancer- PASSED 2015 Medications and Allergies Home Medications Medication Instructions Recorded Confirmed Type Furosemide [Lasix] 40 mg PO DAILY PRN 01/18/17 03/23/21 History atenoloL [Atenolol] 25 mg PO BID 01/18/17 03/23/21 History hydrALAZINE HCL 25 mg PO BID 01/18/17 03/23/21 History Ergocalciferol (Vitamin D2) 50,000 unit PO THAPA 02/21/17 03/23/21 History [Vitamin D2] HYDROcodone/APAP 10-325MG [[place] 1 tab PO Q8HR PRN 02/21/17 03/23/21 History 10-325] Montelukast [Singulair] 10 mg PO DAILY 08/18/19 03/23/21 History Potassium Chloride [K-Tab ER] 10 meq PO DAILY 08/18/19 03/23/21 History Simvastatin [Zocor] 20 mg PO HS 08/18/19 03/23/21 History Cephalexin [Keflex] 500 mg PO Q6H 03/23/21 03/23/21 History Allergies Allergy/AdvReac Type Severity Reaction Status Date / Time adhesive tape Allergy Unknown Rash/Hives Verified 03/23/21 18:03 Sulfa (Sulfonamide Allergy Rash/Hives Verified 03/23/21 18:03 Antibiotics) Physical Exam Vitals: Intake and Output 03/23/21 03/23/21 03/23/21 06:59 14:59 22:59 Other: Weight 88.4 kg In general patient is alert and oriented ?-3 in no distress HEENT head normocephalic and atraumatic Neck is supple no JVD no goiter no lymphadenopathy no carotid bruit Chest examination is clear to auscultation no crackles no wheezing Cardiac exam reveals regular heart sounds S1 and S2 no gallops no murmurs Abdomen is soft nontender no organomegaly with normal bowel sounds Extremity exam reveals bilateral lower extremity swelling and erythema, there is a large ulcer in the posterior aspect of the right lower extremity about 8 cm in diameter Neurological examination reveals no gross focal deficits Thrombosis Risk Factor Assmnt - Choose All That Apply Any of the Below Risk Factors Present?: Yes Each Factor Represents 1 point: Obesity (BMI >25), Swollen legs (current) Other Risk Factors: Yes Each Risk Factor Represents 3 Points: Age 75 years or older Thrombosis Risk Factor Assessment Total Risk Factor Score: 5 Thrombosis Risk Factor Assessment Level: High Risk Assessment and Plan Plan: Bilateral lower extremity cellulitis with right lower extremity ulcer Underlying history of hypertension Underlying history of hyperlipidemia Underlying history of gastroesophageal reflux disease For DVT prophylaxis subcu Lovenox for GI prophylaxis by mouth Protonix Will check labs and consult infectious disease and wound care
[2021-03-23 20:38] LABS: Basophils % (A) 1 %; Eosinophils # (A) 0.3 k/uL (0-0.7); Eosinophils % (A) 4 %; HCT 37.6 % (34.0-46.0); HGB 12.4 gm/dL (11.4-16.0); Lymphocytes # (A) 1.2 k/uL (1.0-4.8); Lymphocytes % (A) 16 %; MCH 31.8 pg (25.0-35.0); MCV 96.1 fL (80.0-100.0); Mean Platelet Volume 7.7; Monocytes # (A) 0.7 k/uL (0-1.0); Monocytes % (A) 9 %; Neutrophils # (A) 5.5 k/uL (1.3-7.7); Neutrophils % (A) 70 %; Platelet Count 226 k/uL (150-450); RBC 3.91 m/uL (3.80-5.40); RDW 13.1 % (11.5-15.5); WBC 7.9 k/uL (3.8-10.6)
[2021-03-23 20:46] LABS: ALT 11 U/L (4-34); AST 23 U/L (14-36); African American GFR (CKD) 78 (>60 ml/min/1.73 sqM); Albumin 3.4 g/dL (3.5-5.0); Albumin/Globulin Ratio 1.3; Alkaline Phosphatase 65 U/L (38-126); Anion Gap 4 mmol/L; Blood Urea Nitrogen 20 mg/dL (7-17); Calcium 9.4 mg/dL (8.4-10.2); Carbon Dioxide 35 mmol/L (22-30); Chloride 103 mmol/L (98-107); Globulin 2.7 g/dL; Glucose 95 mg/dL (74-99); Non-African American GFR(CKD) 67 (>60 ml/min/1.73 sqM); Potassium 4.3 mmol/L (3.5-5.1); Sodium 142 mmol/L (137-145); Total Bilirubin 0.2 mg/dL (0.2-1.3); Total Protein 6.1 g/dL (6.3-8.2)
[2021-03-23] MEDS: HYDROcodone/APAP 10-325MG 1 EACH TAB PO PRN (21:02)
[2021-03-23] MEDS: hydrALAZINE HCL 25 MG TAB PO SCH (21:04)
[2021-03-23] MEDS: ATORVASTATIN 10 MG TAB PO SCH (21:04)
[2021-03-23] MEDS: MONTELUKAST 10 MG TAB PO SCH (21:05)
[2021-03-23] MEDS: atenoloL 25 MG TAB PO SCH (21:05)
[2021-03-24 04:44] LABS: Hemoglobin A1C 5.7 % (4.0-6.0)
[2021-03-24] MEDS: HYDROcodone/APAP 10-325MG 1 EACH TAB PO PRN ×2 (04:54→14:37)
[2021-03-24] MEDS: ENOXAPARIN 40 MG/0.4 ML SYRINGE SQ SCH (09:36)
[2021-03-24] MEDS: hydrALAZINE HCL 25 MG TAB PO SCH ×2 (09:36→20:13)
[2021-03-24] MEDS: POTASSIUM CHLORIDE ER 10 MEQ TAB.ER.PRT PO SCH (09:37)
[2021-03-24] MEDS: atenoloL 25 MG TAB PO SCH ×2 (09:37→20:13)
[2021-03-24] MEDS: PANTOPRAZOLE 40 MG TABLET PO SCH (09:37)
[2021-03-24] MEDS: MONTELUKAST 10 MG TAB PO SCH (09:37)
[2021-03-24 10:26] LABS: Basophils # (A) 0.03 X 10*3/uL (0.00-0.10); Basophils % (A) 0.4 %; Eosinophils # (A) 0.33 X 10*3/uL (0.04-0.35); Eosinophils % (A) 4.5 %; HCT 36.1 % (37.2-46.3); HGB 11.3 g/dL (12.0-15.0); Lymphocytes # (A) 1.29 X 10*3/uL (0.90-5.00); Lymphocytes % (A) 17.5 %; MCH 31.4 pg (27.0-32.0); MCHC 31.3 g/dL (32.0-37.0); MCV 100.3 fL (80.0-97.0); Mean Platelet Volume 10.7 fL (9.5-12.2); Monocytes # (A) 0.96 X 10*3/uL (0.20-1.00); Neutrophils # (A) 4.73 X 10*3/uL (1.80-7.70); Neutrophils % (A) 64.1 %; Platelet Count 226 X 10*3/uL (140-440); RDW 13.4 % (11.5-14.5); WBC 7.38 X 10*3/uL (4.50-10.00)
--- NOTE | 2021-03-24 12:19 | P.CONS ---
History of Present Illness - Reason for Consult Consult date: 03/24/21 Right Lower extremity cellulitis Requesting physician: Ten Guerrero - Chief Complaint Right lower extremity pain swelling and redness times few days - History of Present Illness Patient is 80-year-old female with a past medical history significant for a right lower extremity venous stasis ulcer with the patient has for a couple of weeks now and has been evaluated in the wound care center patient was advised Santyl however the patient seemed to have a problem with burning pain subsequently the home care nurse have contacted her primary care physician and has applied Unna boots patient mentioned she did have some relief of pain after application of the Unna boots however when the nurse came in yesterday to change her on a boat she noticed to have significant swelling and redness to the leg wound with concern for cellulitis and the patient was advised to go see her primary care physician who has admitted the patient tolerated the hospital for left lower extremity wound and cellulitis and infectious disease consultation was requested, patient currently denies having any fever or ages complaining the complaining of pain to the left leg wound area to be more of a dull aching no throbbing, intensity 3-4 of 10 and no radiation with associated swelling and redness she did have minimal drainage but no foul-smelling patient on admission Hospital was afebrile the patient did have a normal white count, patient started on cefazolin infectious disease was consulted for further management of antibiotic therapy Review of Systems Positive point has been mentioned in the HPI rest of the systems are negative Past Medical History Past Medical History: GERD/Reflux, Hypertension, Osteoarthritis (OA), Skin Disorder Additional Past Medical History / Comment(s): Pt denies hyperlipidemia, chronic low back/cervical and bilateral shoulder pain, benign colon polyps/diverticular disease, bilateral lower extremity cellulitis but R leg much more often, UTIs, polynephritis, hiatal hernia many years ago. History of Any Multi-Drug Resistant Organisms: None Reported Past Surgical History: Appendectomy, Cholecystectomy, Joint Replacement, Tubal Ligation Additional Past Surgical History / Comment(s): Bilateral total knee arthroplasties, pain clinic procedures, colonoscopies/benign polypectomies, bilateral cataract removals/lens implants, PICC line. Past Anesthesia/Blood Transfusion Reactions: No Reported Reaction Past Psychological History: Anxiety, Depression Additional Psychological History / Comment(s): Pt resides alone with her dog. She uses a cane to ambulate. She drives. Her son lives across from her. Smoking Status: Never smoker Past Alcohol Use History: Rare Past Drug Use History: None Reported - Past Family History Mother Family Medical History: Cancer Additional Family Medical History / Comment(s): BREAST Father Family Medical History: Cancer Additional Family Medical History / Comment(s): LIVER CANCER/HEART PROBLEMS Son(s) Family Medical History: Cancer Additional Family Medical History / Comment(s): MULTIPLE MYELOMA/bone cancer- PASSED 2015 Medications and Allergies Home Medications Medication Instructions Recorded Confirmed Type Furosemide [Lasix] 40 mg PO DAILY PRN 01/18/17 03/23/21 History atenoloL [Atenolol] 25 mg PO BID 01/18/17 03/23/21 History hydrALAZINE HCL 25 mg PO BID 01/18/17 03/23/21 History Ergocalciferol (Vitamin D2) 50,000 unit PO THAPA 02/21/17 03/23/21 History [Vitamin D2] HYDROcodone/APAP 10-325MG [[place] 1 tab PO Q8HR PRN 02/21/17 03/23/21 History 10-325] Montelukast [Singulair] 10 mg PO DAILY 08/18/19 03/23/21 History Potassium Chloride [K-Tab ER] 10 meq PO DAILY 08/18/19 03/23/21 History Simvastatin [Zocor] 20 mg PO HS 08/18/19 03/23/21 History Cephalexin [Keflex] 500 mg PO Q6H 03/23/21 03/23/21 History Allergies Allergy/AdvReac Type Severity Reaction Status Date / Time adhesive tape Allergy Unknown Rash/Hives Verified 03/23/21 18:03 Sulfa (Sulfonamide Allergy Rash/Hives Verified 03/23/21 18:03 Antibiotics) Physical Exam Vitals: Vital Signs Temp Pulse Resp BP Pulse Ox 03/24/21 08:00 98.3 F 62 18 132/69 93 L 03/24/21 01:45 98.8 F 68 129/73 93 L 03/23/21 19:13 98.3 F 77 120/61 96 Intake and Output 03/23/21 03/24/21 03/24/21 22:59 06:59 14:59 Other: Voiding Method Toilet # Voids 3 Weight 88.4 kg GENERAL DESCRIPTION: Elderly female lying in bed, no distress. No tachypnea or accessory muscle of respiration use. HEENT: Shows Pallor , no scleral icterus. Oral mucous membrane is dry. No pharyngeal erythema or thrush NECK: Trachea central, no thyromegaly. LUNGS: Unlabored breathing. Clear to auscultation anteriorly. No wheeze or crackle. HEART: S1, S2, regular rate and rhythm. No loud murmur ABDOMEN: Soft, no tenderness , guarding or rigidity, no organomegaly EXTREMITIES: Left lower extremity wound with no significant slough minimal surrounding swelling redness and drainage SKIN: No rash, no masses palpable. NEUROLOGICAL: The patient is awake, alert, oriented x3, mood and affect normal. Results CBC & Chem 7: 03/24/21 06:12 03/23/21 20:00 Labs: Abnormal Lab Results - Last 24 Hours (Table) 03/23/21 Range/Units 20:00 Carbon Dioxide 35 H (22-30) mmol/L BUN 20 H (7-17) mg/dL Total Protein 6.1 L (6.3-8.2) g/dL Albumin 3.4 L (3.5-5.0) g/dL Assessment and Plan Assessment: 1-patient with a left lower extremity venous is also with secondary cellulitis likely from gram-positive skin janie with no evidence of any deep abscess clinically 2-sulfa ALLERGY that would limit the number of antibiotic safe to use (1) Cellulitis of right leg Current Visit: No Status: Acute Code(s): L03.115 - CELLULITIS OF RIGHT LOWER LIMB SNOMED Code(s): 924903774 (2) Venous stasis ulcer of right ankle with fat layer exposed Current Visit: No Status: Acute Code(s): I83.013 - VARICOSE VEINS OF RIGHT LOWER EXTREMITY WITH ULCER OF ANKLE; L97.312 - NON-PRS CHRONIC ULCER OF RIGHT A NKLE W FAT LAYER EXPOSED SNOMED Code(s): 523133231 Plan: 1- we will adjust the dose of cefazolin 2 g every 8 hours 2-local wound care with Aquacel silver dressing and Daniel wrap We will follow on clinical condition and cultures to further adjust medication if needed Thank you for this consultation will follow this patient with you Time with Patient: Greater than 30
[2021-03-24 14:51] VITALS: BMI 35.6
[2021-03-24 15:39] LABS: African American GFR (CKD) 80.1 (60.0-200.0); Albumin 3.4 g/dL (3.80-4.90); Albumin/Globulin Ratio 1.55 (1.60-3.17); Anion Gap 10.1 mmol/L (4.00-12.00); BUN/Creat Ratio 23.75 Ratio (12.00-20.00); Calcium 8.7 mg/dL (8.7-10.3); Carbon Dioxide 27.9 mmol/L (21.6-31.8); Globulin 2.2 g/dL (1.6-3.3); Non-African American GFR(CKD) 69.1 (60.0-200.0); Potassium 4.6 mmol/L (3.5-5.5); Total Bilirubin 0.4 mg/dL (0.2-1.2); Total Protein 5.6 g/dL (6.2-8.2)
[2021-03-24] MEDS: ATORVASTATIN 10 MG TAB PO SCH (20:13)
--- NOTE | 2021-03-24 20:17 | P.PN ---
Subjective Progress Note Date: 03/24/21 Dania Vergara, is an 80-year-old female who presented to the office today with pain and swelling and erythema in bilateral lower extremities patient also had a large ulcer in the right calf area, patient stated that she has been going to the wound care clinic and has visiting nurse at home however cellulitis and also has been worsening, she was evaluated in the office and admitted directly to [facility] medical floor, she was started on IV antibiotics cefazolin 1 g IV every 8 hours, infectious disease consultation was requested. On 03/24/2021 patient was seen and examined on the medical floor is alert and oriented 3 in no apparent distress she is complaining of severe pain in her right lower extremity especially at the time of changing dressing otherwise she denies any complaints there is no fever or chills no headache or dizziness no chest pain no shortness of breath no cough no nausea or vomiting no abdominal pain no diarrhea no blood in the stools no burning with urination no frequency or urgency and no hematuria Objective - Vital Signs Vital signs: Vital Signs Temp 98.3 F 03/24/21 08:00 Pulse 62 03/24/21 08:00 Resp 18 03/24/21 08:00 BP 132/69 03/24/21 08:00 Pulse Ox 93 L 03/24/21 08:00 Intake & Output 03/23/21 03/24/21 03/24/21 18:59 06:59 18:59 Weight 88.4 kg Other: Voiding Method Toilet # Voids 3 - Exam In general patient is alert and oriented x3 in no distress HEENT head normocephalic and atraumatic Neck is supple no JVD no goiter no lymphadenopathy no carotid bruit Chest examination is clear to auscultation no crackles no wheezing Cardiac exam reveals regular heart sounds S1 and S2 no gallops no murmurs Abdomen is soft nontender no organomegaly with normal bowel sounds Extremity exam reveals bilateral lower extremity swelling and erythema, there is a large ulcer in the posterior aspect of the right lower extremity about 8 cm in diameter Neurological examination reveals no gross focal deficits - Labs CBC & Chem 7: 03/24/21 06:12 03/24/21 06:12 Labs: Abnormal Lab Results - Last 24 Hours (Table) 03/23/21 03/24/21 Range/Units 20:00 06:12 RBC 3.60 L (4.10-5.20) X 10*6/uL Hgb 11.3 L (12.0-15.0) g/dL Hct 36.1 L (37.2-46.3) % MCV 100.3 H (80.0-97.0) fL MCHC 31.3 L (32.0-37.0) g/dL Carbon Dioxide 35 H (22-30) mmol/L BUN 20 H (7-17) mg/dL Total Protein 6.1 L (6.3-8.2) g/dL Albumin 3.4 L (3.5-5.0) g/dL Assessment and Plan Plan: Bilateral lower extremity cellulitis with right lower extremity ulcer Underlying history of hypertension Underlying history of hyperlipidemia Underlying history of gastroesophageal reflux disease For DVT prophylaxis subcu Lovenox for GI prophylaxis by mouth Protonix Will check labs and consult infectious disease and wound care continue IV cefazolin and local care with Aquacel silver and dressing Pictures taken today of cellulitis and ulcer of the right lower extremity
[2021-03-24] MEDS: HYDROmorphone 0.5 MG/0.5 ML SYRINGE IVP PRN (21:50)
[2021-03-25] MEDS: HYDROmorphone 0.5 MG/0.5 ML SYRINGE IVP PRN ×3 (01:12→20:24)
[2021-03-25] MEDS: HYDROcodone/APAP 10-325MG 1 EACH TAB PO PRN (08:13)
[2021-03-25] MEDS: PANTOPRAZOLE 40 MG TABLET PO SCH (08:14)
[2021-03-25] MEDS: MONTELUKAST 10 MG TAB PO SCH (08:14)
[2021-03-25] MEDS: atenoloL 25 MG TAB PO SCH ×2 (08:14→20:24)
[2021-03-25] MEDS: ENOXAPARIN 40 MG/0.4 ML SYRINGE SQ SCH (08:14)
[2021-03-25] MEDS: hydrALAZINE HCL 25 MG TAB PO SCH ×2 (08:14→20:24)
[2021-03-25] MEDS: POTASSIUM CHLORIDE ER 10 MEQ TAB.ER.PRT PO SCH (08:14)
--- NOTE | 2021-03-25 11:59 | P.PN ---
Subjective Progress Note Date: 03/25/21 Dania Vergara, is an 80-year-old female who presented to the office today with pain and swelling and erythema in bilateral lower extremities patient also had a large ulcer in the right calf area, patient stated that she has been going to the wound care clinic and has visiting nurse at home however cellulitis and also has been worsening, she was evaluated in the office and admitted directly to [facility] medical floor, she was started on IV antibiotics cefazolin 1 g IV every 8 hours, infectious disease consultation was requested. On 03/24/2021 patient was seen and examined on the medical floor is alert and oriented 3 in no apparent distress she is complaining of severe pain in her right lower extremity especially at the time of changing dressing otherwise she denies any complaints there is no fever or chills no headache or dizziness no chest pain no shortness of breath no cough no nausea or vomiting no abdominal pain no diarrhea no blood in the stools no burning with urination no frequency or urgency and no hematuria On 03/25/2021 patient is alert and oriented 3. Right lower extremity remains erythematous. Patient maintained on cefazolin every 8 hours per ID. Patient denies chest pain or shortness of breath. Patient denies nausea vomiting or diarrhea. Patient denies any urinary burning or frequency and patient was having increased pain to lower extremity throughout night. Dilaudid added pain management has improved Objective - Vital Signs Vital signs: Vital Signs Temp 98.5 F 03/25/21 08:21 Pulse 76 03/25/21 08:21 Resp 16 03/25/21 08:21 BP 102/62 03/25/21 08:21 Pulse Ox 92 L 03/25/21 08:21 Intake & Output 03/24/21 03/25/21 03/25/21 18:59 06:59 18:59 Weight 88.4 kg Other: Voiding Method Toilet Toilet # Voids 4 2 - Exam In general patient is alert and oriented x3 in no distress HEENT head normocephalic and atraumatic Neck is supple no JVD no goiter no lymphadenopathy no carotid bruit Chest examination is clear to auscultation no crackles no wheezing Cardiac exam reveals regular heart sounds S1 and S2 no gallops no murmurs Abdomen is soft nontender no organomegaly with normal bowel sounds Extremity exam reveals bilateral lower extremity swelling and erythema, there is a large ulcer in the posterior aspect of the right lower extremity about 8 cm in diameter Neurological examination reveals no gross focal deficits - Labs CBC & Chem 7: 03/24/21 06:12 03/24/21 06:12 Labs: Abnormal Lab Results - Last 24 Hours (Table) 03/24/21 Range/Units 06:12 BUN/Creatinine Ratio 23.75 H (12.00-20.00) Ratio Total Protein 5.6 L (6.2-8.2) g/dL Albumin 3.40 L (3.80-4.90) g/dL Albumin/Globulin Ratio 1.55 L (1.60-3.17) g/dL Microbiology - Last 24 Hours (Table) 03/24/21 10:30 Gram Stain - Preliminary Leg - Right Wound Culture - Preliminary Assessment and Plan Plan: Bilateral lower extremity cellulitis with right lower extremity ulcer Underlying history of hypertension Underlying history of hyperlipidemia Underlying history of gastroesophageal reflux disease For DVT prophylaxis subcu Lovenox for GI prophylaxis by mouth Protonix Will check labs and consult infectious disease and wound care continue IV cefazolin and local care with Aquacel silver and dressing Pictures taken of cellulitis and ulcer of the right lower extremity
[2021-03-25] MEDS: CEFEPIME 2 GM in SODIUM CHLORIDE 0.9% 100 ML IVPB SCH (16:30)
--- NOTE | 2021-03-25 17:43 | PN ---
PROGRESS NOTE DATE OF SERVICE: 03/25/2021 REASON FOR FOLLOWUP: Right lower extremity wound and cellulitis. INTERVAL HISTORY: The patient is currently afebrile. The patient mentioned slight decreased intensity with the wound. The patient denies having any chest pain or shortness of breath or cough. No abdominal pain or diarrhea. PHYSICAL EXAMINATION: Blood pressure 102/62 with a pulse of 73, temperature 98.5. She is 92% on room air. General description is an elderly female lying in bed in no distress. Respiratory system: Unlabored breathing. Clear to auscultation anteriorly. Heart S1, S2. Regular rate and rhythm. Abdomen soft. The right leg did have significant swelling, redness, minimal slough tissue on the wound. LABS: Hemoglobin 11.8, white count 7.38, BUN of 19, creatinine 0.8. DIAGNOSTIC IMPRESSION AND PLAN: Patient with right lower extremity venostasis ulcer with secondary cellulitis. Culture now showing Gram-negative. Antibiotic will be adjusted to cefepime. Local care to continue with Aquacel Silver dressing and debride the wound tomorrow. Continue supportive care. MMODL / IJN: [id number] /
[2021-03-25] MEDS: ATORVASTATIN 10 MG TAB PO SCH (20:24)
[2021-03-26] MEDS: CEFEPIME 2 GM in SODIUM CHLORIDE 0.9% 100 ML IVPB SCH ×3 (00:17→15:55)
[2021-03-26] MEDS: PANTOPRAZOLE 40 MG TABLET PO SCH (08:21)
[2021-03-26] MEDS: hydrALAZINE HCL 25 MG TAB PO SCH ×2 (08:21→22:12)
[2021-03-26] MEDS: atenoloL 25 MG TAB PO SCH ×2 (08:21→22:13)
[2021-03-26] MEDS: POTASSIUM CHLORIDE ER 10 MEQ TAB.ER.PRT PO SCH (08:21)
[2021-03-26] MEDS: MONTELUKAST 10 MG TAB PO SCH (08:21)
[2021-03-26] MEDS: HYDROmorphone 0.5 MG/0.5 ML SYRINGE IVP PRN ×5 (08:22→22:13)
[2021-03-26] MEDS: ENOXAPARIN 40 MG/0.4 ML SYRINGE SQ SCH (08:22)
--- NOTE | 2021-03-26 10:26 | P.PN ---
Subjective Progress Note Date: 03/26/21 Dania Vergara, is an 80-year-old female who presented to the office today with pain and swelling and erythema in bilateral lower extremities patient also had a large ulcer in the right calf area, patient stated that she has been going to the wound care clinic and has visiting nurse at home however cellulitis and also has been worsening, she was evaluated in the office and admitted directly to [facility] medical floor, she was started on IV antibiotics cefazolin 1 g IV every 8 hours, infectious disease consultation was requested. On 03/24/2021 patient was seen and examined on the medical floor is alert and oriented 3 in no apparent distress she is complaining of severe pain in her right lower extremity especially at the time of changing dressing otherwise she denies any complaints there is no fever or chills no headache or dizziness no chest pain no shortness of breath no cough no nausea or vomiting no abdominal pain no diarrhea no blood in the stools no burning with urination no frequency or urgency and no hematuria On 03/25/2021 patient is alert and oriented 3. Right lower extremity remains erythematous. Patient maintained on cefazolin every 8 hours per ID. Patient denies chest pain or shortness of breath. Patient denies nausea vomiting or diarrhea. Patient denies any urinary burning or frequency and patient was having increased pain to lower extremity throughout night. Dilaudid added pain management has improved On 03/26/2021 patient is alert and oriented 3. Patient reports improvement with pain total right lower extremity. Antibiotics adjusted to cefepime per infectious disease. At this time patient denies chest pain or shortness breath. Patient denies nausea vomiting or diarrhea. Patient denies any urinary burning or frequency. PT OT and social media content manager consult placed for discharge planning Objective - Vital Signs Vital signs: Vital Signs Temp 98.3 F 03/26/21 08:07 Pulse 66 03/26/21 08:07 Resp 17 03/26/21 08:07 BP 116/62 03/26/21 08:07 Pulse Ox 93 L 03/26/21 08:07 Intake & Output 03/25/21 03/26/21 03/26/21 18:59 06:59 18:59 Other: Voiding Method Toilet Toilet Toilet # Voids 4 1 1 # Bowel Movements 1 - Exam In general patient is alert and oriented x3 in no distress HEENT head normocephalic and atraumatic Neck is supple no JVD no goiter no lymphadenopathy no carotid bruit Chest examination is clear to auscultation no crackles no wheezing Cardiac exam reveals regular heart sounds S1 and S2 no gallops no murmurs Abdomen is soft nontender no organomegaly with normal bowel sounds Extremity exam reveals bilateral lower extremity swelling and erythema, there is a large ulcer in the posterior aspect of the right lower extremity about 8 cm in diameter Neurological examination reveals no gross focal deficits - Labs CBC & Chem 7: 03/24/21 06:12 03/24/21 06:12 Labs: Microbiology - Last 24 Hours (Table) 03/24/21 10:30 Gram Stain - Preliminary Leg - Right Wound Culture - Preliminary Gram Neg Bacilli Assessment and Plan Plan: Bilateral lower extremity cellulitis with right lower extremity ulcer Underlying history of hypertension Underlying history of hyperlipidemia Underlying history of gastroesophageal reflux disease For DVT prophylaxis subcu Lovenox for GI prophylaxis by mouth Protonix Will check labs and consult infectious disease and wound care continue IV maxipime and local care with Aquacel silver and dressing Pictures taken of cellulitis and ulcer of the right lower extremity PT OT and social work services consulted for discharge planning
[2021-03-26 11:43] LABS: Basophils # (A) 0.04 X 10*3/uL (0.00-0.10); Basophils % (A) 0.5 %; Eosinophils # (A) 0.29 X 10*3/uL (0.04-0.35); Eosinophils % (A) 3.9 %; HGB 12.7 g/dL (12.0-15.0); Lymphocytes # (A) 1.38 X 10*3/uL (0.90-5.00); Lymphocytes % (A) 18.4 %; MCH 31.4 pg (27.0-32.0); MCV 101.2 fL (80.0-97.0); Mean Platelet Volume 10.9 fL (9.5-12.2); Monocytes # (A) 0.77 X 10*3/uL (0.20-1.00); Monocytes % (A) 10.3 %; Neutrophils # (A) 4.97 X 10*3/uL (1.80-7.70); Neutrophils % (A) 66.1 %; Platelet Count 242 X 10*3/uL (140-440); RBC 4.05 X 10*6/uL (4.10-5.20); RDW 13.1 % (11.5-14.5); WBC 7.51 X 10*3/uL (4.50-10.00)
[2021-03-26] MEDS: HYDROPHILIC CREAM 180 GM TUBE TOPICAL SCH (12:37)
[2021-03-26 14:40] LABS: African American GFR (CKD) 80.1 (60.0-200.0); Albumin 3.9 g/dL (3.80-4.90); Albumin/Globulin Ratio 1.63 (1.60-3.17); Anion Gap 10.5 mmol/L (4.00-12.00); BUN/Creat Ratio 21.25 Ratio (12.00-20.00); Calcium 9.4 mg/dL (8.7-10.3); Carbon Dioxide 27.5 mmol/L (21.6-31.8); Globulin 2.4 g/dL (1.6-3.3); Non-African American GFR(CKD) 69.1 (60.0-200.0); Potassium 4.6 mmol/L (3.5-5.5); Total Bilirubin 0.4 mg/dL (0.2-1.2); Total Protein 6.3 g/dL (6.2-8.2)
[2021-03-26] MEDS: ATORVASTATIN 10 MG TAB PO SCH (22:12)
[2021-03-27] MEDS: CEFEPIME 2 GM in SODIUM CHLORIDE 0.9% 100 ML IVPB SCH ×3 (00:03→20:06)
--- NOTE | 2021-03-27 04:00 | PN ---
PROGRESS NOTE DATE OF SERVICE: 03/26/2021 REASON FOR FOLLOWUP: Left lower extremity wound with secondary cellulitis. INTERVAL HISTORY: The patient is currently afebrile. The patient is breathing comfortably. Pain to the right leg has slightly decreased in intensity. Denies having any chest pain or cough. No abdominal pain. No diarrhea. PHYSICAL EXAMINATION: Her blood pressure is 144/76, pulse of 72, temperature 98.2. She is 93% on room air. General description: The patient is an elderly female up in the chair in no distress. Respiratory system: Unlabored breathing, clear to auscultation anteriorly. Heart S1, S2. Regular rate and rhythm. Abdomen soft. No tenderness. Right leg swelling has decreased. Minimal drainage. LABS: Hemoglobin is 12.7, white count 7.51. BUN of 17, creatinine 0.8. Local culture with Enterobacter cloacae. DIAGNOSTIC IMPRESSION AND PLAN: Patient with left leg wound and secondary cellulitis. Culture positive for Enterobacter. Patient is covered with cefepime to continue local wound care with dry Aquacel Silver dressing with a plan to finish therapy with oral antibiotics. No need for PICC line. Continue supportive care. MMODL / IJN: [id number] /
[2021-03-27] MEDS: ENOXAPARIN 40 MG/0.4 ML SYRINGE SQ SCH (08:32)
[2021-03-27] MEDS: PANTOPRAZOLE 40 MG TABLET PO SCH (08:32)
[2021-03-27] MEDS: hydrALAZINE HCL 25 MG TAB PO SCH ×2 (08:32→20:06)
[2021-03-27] MEDS: MONTELUKAST 10 MG TAB PO SCH (08:32)
[2021-03-27] MEDS: atenoloL 25 MG TAB PO SCH ×2 (08:32→20:06)
[2021-03-27] MEDS: HYDROPHILIC CREAM 180 GM TUBE TOPICAL SCH (08:32)
[2021-03-27] MEDS: POTASSIUM CHLORIDE ER 10 MEQ TAB.ER.PRT PO SCH (08:33)
[2021-03-27 10:03] LABS: Basophils # (A) 0.04 X 10*3/uL (0.00-0.10); Basophils % (A) 0.6 %; Eosinophils # (A) 0.27 X 10*3/uL (0.04-0.35); Eosinophils % (A) 3.9 %; HCT 38.6 % (37.2-46.3); HGB 11.6 g/dL (12.0-15.0); Lymphocytes % (A) 18.8 %; MCH 30.1 pg (27.0-32.0); MCHC 30.1 g/dL (32.0-37.0); MCV 100.3 fL (80.0-97.0); Mean Platelet Volume 10.8 fL (9.5-12.2); Monocytes # (A) 0.71 X 10*3/uL (0.20-1.00); Monocytes % (A) 10.3 %; Neutrophils # (A) 4.55 X 10*3/uL (1.80-7.70); Neutrophils % (A) 65.7 %; Platelet Count 242 X 10*3/uL (140-440); RBC 3.85 X 10*6/uL (4.10-5.20); RDW 13.2 % (11.5-14.5); WBC 6.92 X 10*3/uL (4.50-10.00)
[2021-03-27 11:48] LABS: African American GFR (CKD) 69.5 (60.0-200.0); Albumin 3.6 g/dL (3.80-4.90); Albumin/Globulin Ratio 1.57 (1.60-3.17); Anion Gap 7.7 mmol/L (4.00-12.00); BUN/Creat Ratio 23.33 Ratio (12.00-20.00); Carbon Dioxide 30.3 mmol/L (21.6-31.8); Globulin 2.3 g/dL (1.6-3.3); Potassium 4.3 mmol/L (3.5-5.5); Total Bilirubin 0.4 mg/dL (0.2-1.2); Total Protein 5.9 g/dL (6.2-8.2)
[2021-03-27] MEDS: HYDROmorphone 0.5 MG/0.5 ML SYRINGE IVP PRN ×3 (12:19→20:07)
--- NOTE | 2021-03-27 19:51 | PN ---
PROGRESS NOTE DATE OF SERVICE: 03/27/2021 REASON FOR FOLLOWUP: Right lower extremity wound with cellulitis. INTERVAL HISTORY: The patient is currently afebrile. The patient is breathing comfortably. The patient denies having any chest pain or shortness of breath or cough. No abdominal pain or any worsening pain in the right leg. PHYSICAL EXAMINATION: Blood pressure 126/52 with a pulse of 69, temperature 98.2. She is 94% on room air. General description is an elderly female up in the chair in no distress. RESPIRATORY SYSTEM: Unlabored breathing. Clear to auscultation anteriorly. HEART: S1, S2. Regular rate and rhythm. ABDOMEN: Soft. No tenderness. Right leg is currently wrapped up. No obvious drainage on the dressing. LABS: Hemoglobin is 11.6, white count 6.92, BUN of 21, creatinine 0.9. Local culture with Enterobacter. DIAGNOSTIC IMPRESSION AND PLAN: Patient with right lower extremity wound with secondary cellulitis. Culture has been positive for Gram-negative. Patient is covered with cefepime; to continue. Finish therapy with oral antibiotics. No need for a PICC line. Local care to continue with Aquacel Silver dressing and Daniel wrap. Continue supportive care. MMODL / IJN: [id number] /
[2021-03-27] MEDS: ATORVASTATIN 10 MG TAB PO SCH (20:06)
[2021-03-28] MEDS: HYDROcodone/APAP 10-325MG 1 EACH TAB PO PRN ×2 (03:35→13:02)
[2021-03-28] MEDS: atenoloL 25 MG TAB PO SCH ×2 (08:35→20:55)
[2021-03-28] MEDS: POTASSIUM CHLORIDE ER 10 MEQ TAB.ER.PRT PO SCH (08:35)
[2021-03-28] MEDS: CEFEPIME 2 GM in SODIUM CHLORIDE 0.9% 100 ML IVPB SCH ×2 (08:35→20:56)
[2021-03-28] MEDS: hydrALAZINE HCL 25 MG TAB PO SCH ×2 (08:35→20:57)
[2021-03-28] MEDS: HYDROmorphone 0.5 MG/0.5 ML SYRINGE IVP PRN ×3 (08:36→20:54)
[2021-03-28] MEDS: HYDROPHILIC CREAM 180 GM TUBE TOPICAL SCH (08:36)
[2021-03-28] MEDS: MONTELUKAST 10 MG TAB PO SCH (08:36)
[2021-03-28] MEDS: ENOXAPARIN 40 MG/0.4 ML SYRINGE SQ SCH (08:36)
[2021-03-28] MEDS: PANTOPRAZOLE 40 MG TABLET PO SCH (08:36)
[2021-03-28 08:54] LABS: Basophils % (A) 0 %; Eosinophils # (A) 0.3 k/uL (0-0.7); Eosinophils % (A) 4 %; HCT 37.3 % (34.0-46.0); HGB 12.4 gm/dL (11.4-16.0); Lymphocytes # (A) 1.4 k/uL (1.0-4.8); Lymphocytes % (A) 21 %; MCH 31.9 pg (25.0-35.0); MCHC 33.2 g/dL (31.0-37.0); MCV 96.3 fL (80.0-100.0); Mean Platelet Volume 7.6; Monocytes # (A) 0.5 k/uL (0-1.0); Monocytes % (A) 7 %; Neutrophils # (A) 4.6 k/uL (1.3-7.7); Neutrophils % (A) 67 %; Platelet Count 210 k/uL (150-450); RBC 3.87 m/uL (3.80-5.40); WBC 6.9 k/uL (3.8-10.6)
[2021-03-28 09:07] LABS: ALT 10 U/L (4-34); AST 28 U/L (14-36); African American GFR (CKD) 74 (>60 ml/min/1.73 sqM); Albumin 3.5 g/dL (3.5-5.0); Albumin/Globulin Ratio 1.3; Alkaline Phosphatase 60 U/L (38-126); Anion Gap 5 mmol/L; Blood Urea Nitrogen 21 mg/dL (7-17); Calcium 9.1 mg/dL (8.4-10.2); Carbon Dioxide 32 mmol/L (22-30); Chloride 104 mmol/L (98-107); Globulin 2.6 g/dL; Glucose 107 mg/dL (74-99); Non-African American GFR(CKD) 64 (>60 ml/min/1.73 sqM); Potassium 4.5 mmol/L (3.5-5.1); Sodium 141 mmol/L (137-145); Total Bilirubin 0.4 mg/dL (0.2-1.3); Total Protein 6.1 g/dL (6.3-8.2)
--- NOTE | 2021-03-28 16:28 | P.PN ---
Subjective Progress Note Date: 03/27/21 Dania Vergara, is an 80-year-old female who presented to the office today with pain and swelling and erythema in bilateral lower extremities patient also had a large ulcer in the right calf area, patient stated that she has been going to the wound care clinic and has visiting nurse at home however cellulitis and also has been worsening, she was evaluated in the office and admitted directly to [facility] medical floor, she was started on IV antibiotics cefazolin 1 g IV every 8 hours, infectious disease consultation was requested. On 03/24/2021 patient was seen and examined on the medical floor is alert and oriented 3 in no apparent distress she is complaining of severe pain in her right lower extremity especially at the time of changing dressing otherwise she denies any complaints there is no fever or chills no headache or dizziness no chest pain no shortness of breath no cough no nausea or vomiting no abdominal pain no diarrhea no blood in the stools no burning with urination no frequency or urgency and no hematuria On 03/25/2021 patient is alert and oriented 3. Right lower extremity remains erythematous. Patient maintained on cefazolin every 8 hours per ID. Patient denies chest pain or shortness of breath. Patient denies nausea vomiting or diarrhea. Patient denies any urinary burning or frequency and patient was having increased pain to lower extremity throughout night. Dilaudid added pain management has improved On 03/26/2021 patient is alert and oriented 3. Patient reports improvement with pain total right lower extremity. Antibiotics adjusted to cefepime per infectious disease. At this time patient denies chest pain or shortness breath. Patient denies nausea vomiting or diarrhea. Patient denies any urinary burning or frequency. PT OT and social director consult placed for discharge planning On 03/27/2021 Patient was seen and examined on the medical floor, he is alert and oriented x 3 in no distress, he denies any complaints there is no fever or chills no headache or dizziness no chest pain no shortness of breath no palpitation no cough no nausea or vomiting no abdominal pain no diarrhea no blood in the stools no burning with urination no frequency or urgency and no hematuria, patient is still complaining of pain and swelling and erythema in the lower extremity Objective - Vital Signs Vital signs: Vital Signs Temp 98.9 F 03/27/21 00:54 Pulse 69 03/27/21 00:54 Resp 15 03/27/21 00:54 BP 113/65 03/27/21 00:54 Pulse Ox 92 L 03/27/21 00:54 Intake & Output 03/26/21 03/27/21 03/27/21 18:59 06:59 18:59 Other: Voiding Method Toilet Toilet # Voids 1 1 # Bowel Movements 1 - Exam In general patient is alert and oriented x3 in no distress HEENT head normocephalic and atraumatic Neck is supple no JVD no goiter no lymphadenopathy no carotid bruit Chest examination is clear to auscultation no crackles no wheezing Cardiac exam reveals regular heart sounds S1 and S2 no gallops no murmurs Abdomen is soft nontender no organomegaly with normal bowel sounds Extremity exam reveals bilateral lower extremity swelling and erythema, there is a large ulcer in the posterior aspect of the right lower extremity about 8 cm in diameter Neurological examination reveals no gross focal deficits - Labs CBC & Chem 7: 03/28/21 08:15 03/28/21 08:15 Labs: Abnormal Lab Results - Last 24 Hours (Table) 03/26/21 03/26/21 Range/Units 07:22 07:22 RBC 4.05 L (4.10-5.20) X 10*6/uL MCV 101.2 H (80.0-97.0) fL MCHC 31.0 L (32.0-37.0) g/dL Immature Gran # 0.06 H (0.00-0.04) X 10*3/uL BUN/Creatinine Ratio 21.25 H (12.00-20.00) Ratio Microbiology - Last 24 Hours (Table) 03/24/21 10:30 Gram Stain - Preliminary Leg - Right Wound Culture - Preliminary Enterobacter cloacae Assessment and Plan Plan: Bilateral lower extremity cellulitis with right lower extremity ulcer Underlying history of hypertension Underlying history of hyperlipidemia Underlying history of gastroesophageal reflux disease For DVT prophylaxis subcu Lovenox for GI prophylaxis by mouth Protonix Will check labs and consult infectious disease and wound care continue IV maxipime and local care with Aquacel silver and dressing Pictures taken of cellulitis and ulcer of the right lower extremity PT OT and social work services consulted for discharge planning
--- NOTE | 2021-03-28 16:29 | P.PN ---
Subjective Progress Note Date: 03/28/21 Dania Vergara, is an 80-year-old female who presented to the office today with pain and swelling and erythema in bilateral lower extremities patient also had a large ulcer in the right calf area, patient stated that she has been going to the wound care clinic and has visiting nurse at home however cellulitis and also has been worsening, she was evaluated in the office and admitted directly to [facility] medical floor, she was started on IV antibiotics cefazolin 1 g IV every 8 hours, infectious disease consultation was requested. On 03/24/2021 patient was seen and examined on the medical floor is alert and oriented 3 in no apparent distress she is complaining of severe pain in her right lower extremity especially at the time of changing dressing otherwise she denies any complaints there is no fever or chills no headache or dizziness no chest pain no shortness of breath no cough no nausea or vomiting no abdominal pain no diarrhea no blood in the stools no burning with urination no frequency or urgency and no hematuria On 03/25/2021 patient is alert and oriented 3. Right lower extremity remains erythematous. Patient maintained on cefazolin every 8 hours per ID. Patient denies chest pain or shortness of breath. Patient denies nausea vomiting or diarrhea. Patient denies any urinary burning or frequency and patient was having increased pain to lower extremity throughout night. Dilaudid added pain management has improved On 03/26/2021 patient is alert and oriented 3. Patient reports improvement with pain total right lower extremity. Antibiotics adjusted to cefepime per infectious disease. At this time patient denies chest pain or shortness breath. Patient denies nausea vomiting or diarrhea. Patient denies any urinary burning or frequency. PT OT and long term care social worker consult placed for discharge planning On 03/27/2021 Patient was seen and examined on the medical floor, he is alert and oriented x 3 in no distress, he denies any complaints there is no fever or chills no headache or dizziness no chest pain no shortness of breath no palpitation no cough no nausea or vomiting no abdominal pain no diarrhea no blood in the stools no burning with urination no frequency or urgency and no hematuria, patient is still complaining of pain and swelling and erythema in the lower extremity On 03/28/2021 Patient was seen and examined on the medical floor, he is alert and oriented x 3 in no distress, he denies any complaints there is no fever or chills no headache or dizziness no chest pain no shortness of breath no palpitation no cough no nausea or vomiting no abdominal pain no diarrhea no blood in the stools no burning with urination no frequency or urgency and no hematuria, patient is feeling better there is less pain and swelling in the lower extremity, continue with current IV antibiotic Will follow in a.m. Objective - Vital Signs Vital signs: Vital Signs Temp 97.5 F L 03/28/21 14:00 Pulse 61 03/28/21 14:00 Resp 16 03/28/21 14:00 BP 118/77 03/28/21 14:00 Pulse Ox 98 03/28/21 14:00 Intake & Output 03/27/21 03/28/21 03/28/21 18:59 06:59 18:59 Intake Total 600 Balance 600 Intake: Oral 600 Other: Voiding Method Toilet # Voids 1 1 - Exam In general patient is alert and oriented x3 in no distress HEENT head normocephalic and atraumatic Neck is supple no JVD no goiter no lymphadenopathy no carotid bruit Chest examination is clear to auscultation no crackles no wheezing Cardiac exam reveals regular heart sounds S1 and S2 no gallops no murmurs Abdomen is soft nontender no organomegaly with normal bowel sounds Extremity exam reveals bilateral lower extremity swelling and erythema, there is a large ulcer in the posterior aspect of the right lower extremity about 8 cm in diameter Neurological examination reveals no gross focal deficits - Labs CBC & Chem 7: 03/28/21 08:15 03/28/21 08:15 Labs: Abnormal Lab Results - Last 24 Hours (Table) 03/28/21 Range/Units 08:15 Carbon Dioxide 32 H (22-30) mmol/L BUN 21 H (7-17) mg/dL Glucose 107 H (74-99) mg/dL Total Protein 6.1 L (6.3-8.2) g/dL Microbiology - Last 24 Hours (Table) 03/24/21 10:30 Gram Stain - Preliminary Leg - Right Wound Culture - Preliminary Enterobacter cloacae Enterobacter cloacae#2 Enterococcus faecalis Presumptive Staph aureus Assessment and Plan Plan: Bilateral lower extremity cellulitis with right lower extremity ulcer Underlying history of hypertension Underlying history of hyperlipidemia Underlying history of gastroesophageal reflux disease For DVT prophylaxis subcu Lovenox for GI prophylaxis by mouth Protonix Will check labs and consult infectious disease and wound care continue IV maxipime and local care with Aquacel silver and dressing Pictures taken of cellulitis and ulcer of the right lower extremity PT OT and social work services consulted for discharge planning
[2021-03-28] MEDS: ATORVASTATIN 10 MG TAB PO SCH (20:55)
--- NOTE | 2021-03-28 23:22 | PN ---
PROGRESS NOTE DATE OF SERVICE: 03/28/2021 REASON FOR FOLLOWUP: Right lower venous stasis ulcer and cellulitis. INTERVAL HISTORY: The patient is currently afebrile. The patient is breathing comfortably. The patient denies having any chest pain. No shortness of breath or cough. No nausea or abdominal pain. Pain to the right foot is currently controlled. PHYSICAL EXAMINATION: Blood pressure 118/77 with a pulse of 71, temperature 97.5. She is 98% on room air. General description is an elderly female lying in bed in no distress. Respiratory system: Unlabored breathing, clear to auscultation anteriorly. Heart S1, S2. Regular rate and rhythm. Abdomen soft, no tenderness. Right leg swelling has slightly decreased. LABS: Hemoglobin is 12.4, white count 6.9, BUN of 21, creatinine 0.86. DIAGNOSTIC IMPRESSION AND PLAN: Patient with right lower extremity venostasis ulcer with secondary cellulitis. Culture did show multiple pathogen, possible colonization. The patient clinically responded to cefepime, to continue while local care to continue with Aquacel dressing and Daniel wrap and monitor clinical course closely. MMODL / IJN: [id number] /
[2021-03-29] MEDS: HYDROmorphone 0.5 MG/0.5 ML SYRINGE IVP PRN ×3 (04:29→21:06)
[2021-03-29] MEDS: ENOXAPARIN 40 MG/0.4 ML SYRINGE SQ SCH (08:00)
[2021-03-29] MEDS: POTASSIUM CHLORIDE ER 10 MEQ TAB.ER.PRT PO SCH (08:00)
[2021-03-29] MEDS: MONTELUKAST 10 MG TAB PO SCH (08:00)
[2021-03-29] MEDS: hydrALAZINE HCL 25 MG TAB PO SCH ×2 (08:00→21:06)
[2021-03-29] MEDS: PANTOPRAZOLE 40 MG TABLET PO SCH (08:00)
[2021-03-29] MEDS: CEFEPIME 2 GM in SODIUM CHLORIDE 0.9% 100 ML IVPB SCH (08:01)
[2021-03-29] MEDS: HYDROcodone/APAP 10-325MG 1 EACH TAB PO PRN (08:01)
[2021-03-29] MEDS: HYDROPHILIC CREAM 180 GM TUBE TOPICAL SCH (08:02)
[2021-03-29] MEDS: atenoloL 25 MG TAB PO SCH ×2 (11:39→21:06)
--- NOTE | 2021-03-29 13:07 | P.PN ---
Subjective Progress Note Date: 03/29/21 Dania Vergara, is an 80-year-old female who presented to the office today with pain and swelling and erythema in bilateral lower extremities patient also had a large ulcer in the right calf area, patient stated that she has been going to the wound care clinic and has visiting nurse at home however cellulitis and also has been worsening, she was evaluated in the office and admitted directly to [facility] medical floor, she was started on IV antibiotics cefazolin 1 g IV every 8 hours, infectious disease consultation was requested. On 03/24/2021 patient was seen and examined on the medical floor is alert and oriented 3 in no apparent distress she is complaining of severe pain in her right lower extremity especially at the time of changing dressing otherwise she denies any complaints there is no fever or chills no headache or dizziness no chest pain no shortness of breath no cough no nausea or vomiting no abdominal pain no diarrhea no blood in the stools no burning with urination no frequency or urgency and no hematuria On 03/25/2021 patient is alert and oriented 3. Right lower extremity remains erythematous. Patient maintained on cefazolin every 8 hours per ID. Patient denies chest pain or shortness of breath. Patient denies nausea vomiting or diarrhea. Patient denies any urinary burning or frequency and patient was having increased pain to lower extremity throughout night. Dilaudid added pain management has improved On 03/26/2021 patient is alert and oriented 3. Patient reports improvement with pain total right lower extremity. Antibiotics adjusted to cefepime per infectious disease. At this time patient denies chest pain or shortness breath. Patient denies nausea vomiting or diarrhea. Patient denies any urinary burning or frequency. PT OT and social studies teacher consult placed for discharge planning On 03/27/2021 Patient was seen and examined on the medical floor, he is alert and oriented x 3 in no distress, he denies any complaints there is no fever or chills no headache or dizziness no chest pain no shortness of breath no palpitation no cough no nausea or vomiting no abdominal pain no diarrhea no blood in the stools no burning with urination no frequency or urgency and no hematuria, patient is still complaining of pain and swelling and erythema in the lower extremity On 03/28/2021 Patient was seen and examined on the medical floor, he is alert and oriented x 3 in no distress, he denies any complaints there is no fever or chills no headache or dizziness no chest pain no shortness of breath no palpitation no cough no nausea or vomiting no abdominal pain no diarrhea no blood in the stools no burning with urination no frequency or urgency and no hematuria, patient is feeling better there is less pain and swelling in the lower extremity, continue with current IV antibiotic Will follow in a.m. On 03/29/2021 Patient was seen and examined on the medical floor, he is alert and oriented x 3 in no distress, he denies any complaints there is no fever or chills no headache or dizziness no chest pain no shortness of breath no pal pitation no cough no nausea or vomiting no abdominal pain no diarrhea no blood in the stools no burning with urination no frequency or urgency and no hematuria, there is no weakness or numbness in any of the extremities no change in vision speech or gait. There is a gradual improvement in the right lower extremity pain and swelling and erythema, continue with IV antibiotic continue with local care, will follow in a.m.. Objective - Vital Signs Vital signs: Vital Signs Temp 98.2 F 03/29/21 01:56 Pulse 96 03/29/21 01:56 Resp 19 03/29/21 01:56 BP 147/53 03/29/21 01:56 Pulse Ox 95 03/29/21 01:56 Intake & Output 03/28/21 03/29/21 03/29/21 18:59 06:59 18:59 Intake Total 600 Balance 600 Intake: Oral 600 Other: Voiding Method Toilet # Voids 2 4 # Bowel Movements 1 - Exam In general patient is alert and oriented x3 in no distress HEENT head normocephalic and atraumatic Neck is supple no JVD no goiter no lymphadenopathy no carotid bruit Chest examination is clear to auscultation no crackles no wheezing Cardiac exam reveals regular heart sounds S1 and S2 no gallops no murmurs Abdomen is soft nontender no organomegaly with normal bowel sounds Extremity exam reveals bilateral lower extremity swelling and erythema, there is a large ulcer in the posterior aspect of the right lower extremity about 8 cm in diameter Neurological examination reveals no gross focal deficits - Labs CBC & Chem 7: 03/28/21 08:15 03/28/21 08:15 Labs: Abnormal Lab Results - Last 24 Hours (Table) 03/28/21 Range/Units 08:15 Carbon Dioxide 32 H (22-30) mmol/L BUN 21 H (7-17) mg/dL Glucose 107 H (74-99) mg/dL Total Protein 6.1 L (6.3-8.2) g/dL Microbiology - Last 24 Hours (Table) 03/24/21 10:30 Gram Stain - Preliminary Leg - Right Wound Culture - Preliminary Enterobacter cloacae Enterobacter cloacae#2 Enterococcus faecalis Presumptive Staph aureus Assessment and Plan Plan: Bilateral lower extremity cellulitis with right lower extremity ulcer Underlying history of hypertension Underlying history of hyperlipidemia Underlying history of gastroesophageal reflux disease For DVT prophylaxis subcu Lovenox for GI prophylaxis by mouth Protonix Will check labs and consult infectious disease and wound care continue IV maxipime and local care with Aquacel silver and dressing Pictures taken of cellulitis and ulcer of the right lower extremity PT OT and social work services consulted for discharge planning
[2021-03-29] MEDS: AMPICILLIN-SULBACTAM 3 GM in SODIUM CHLORIDE 0.9% 100 ML IVPB SCH ×2 (18:42→23:55)
--- NOTE | 2021-03-29 18:59 | PN ---
PROGRESS NOTE DATE OF SERVICE: 03/29/2021 REASON FOR FOLLOWUP: Right lower extremity venostasis ulcer and cellulitis. INTERVAL HISTORY: The patient is currently afebrile. The patient is breathing comfortably. The patient denies having any chest pain, shortness of breath or cough. No abdominal pain or any worsening pain to the right foot wound area. PHYSICAL EXAMINATION: VITAL SIGNS: Stable. T-max 98. GENERAL DESCRIPTION: An elderly female up in the chair in no distress. RESPIRATORY SYSTEM: Unlabored breathing, clear to auscultation anteriorly. HEART: S1, S2. Regular rate and rhythm. ABDOMEN: Soft, no tenderness. EXTREMITIES: Right leg is currently dressed with no drainage on the dressing. LABS: Culture now showing E coli and Enterococcus faecalis, enterobacter and MSSA. White count 6.9. DIAGNOSTIC IMPRESSION AND PLAN: Patient with right lower extremity venostasis ulcer with secondary cellulitis and multiple pathogens. Antibiotic will be adjusted to Unasyn and Cipro. Local care with Aquacel Silver dressing. Plan to finish therapy with oral Cipro and Augmentin and close outpatient followup. MMODL / IJN: [id number] /
[2021-03-29] MEDS ORDERED: ERGOCALCIFEROL 1,250 MCG (50,000 IU) CAPSULE PO SCH (19:09)
[2021-03-29] MEDS: ATORVASTATIN 10 MG TAB PO SCH (21:06)
[2021-03-29] MEDS: CIPROFLOXACIN HCL 500 MG TAB PO SCH (21:06)
[2021-03-30] MEDS: AMPICILLIN-SULBACTAM 3 GM in SODIUM CHLORIDE 0.9% 100 ML IVPB SCH ×4 (05:20→23:03)
[2021-03-30] MEDS: HYDROmorphone 0.5 MG/0.5 ML SYRINGE IVP PRN ×3 (05:20→18:28)
[2021-03-30] MEDS: POTASSIUM CHLORIDE ER 10 MEQ TAB.ER.PRT PO SCH (07:58)
[2021-03-30] MEDS: CIPROFLOXACIN HCL 500 MG TAB PO SCH ×2 (07:58→23:02)
[2021-03-30] MEDS: ENOXAPARIN 40 MG/0.4 ML SYRINGE SQ SCH (07:58)
[2021-03-30] MEDS: MONTELUKAST 10 MG TAB PO SCH (07:58)
[2021-03-30] MEDS: PANTOPRAZOLE 40 MG TABLET PO SCH (07:58)
[2021-03-30] MEDS: HYDROPHILIC CREAM 180 GM TUBE TOPICAL SCH (07:59)
[2021-03-30] MEDS: hydrALAZINE HCL 25 MG TAB PO SCH ×2 (07:59→23:01)
[2021-03-30] MEDS: atenoloL 25 MG TAB PO SCH ×2 (07:59→23:01)
--- NOTE | 2021-03-30 16:46 | P.PN ---
Subjective Progress Note Date: 03/30/21 Dania Vergara, is an 80-year-old female who presented to the office today with pain and swelling and erythema in bilateral lower extremities patient also had a large ulcer in the right calf area, patient stated that she has been going to the wound care clinic and has visiting nurse at home however cellulitis and also has been worsening, she was evaluated in the office and admitted directly to [facility] medical floor, she was started on IV antibiotics cefazolin 1 g IV every 8 hours, infectious disease consultation was requested. On 03/24/2021 patient was seen and examined on the medical floor is alert and oriented 3 in no apparent distress she is complaining of severe pain in her right lower extremity especially at the time of changing dressing otherwise she denies any complaints there is no fever or chills no headache or dizziness no chest pain no shortness of breath no cough no nausea or vomiting no abdominal pain no diarrhea no blood in the stools no burning with urination no frequency or urgency and no hematuria On 03/25/2021 patient is alert and oriented 3. Right lower extremity remains erythematous. Patient maintained on cefazolin every 8 hours per ID. Patient denies chest pain or shortness of breath. Patient denies nausea vomiting or diarrhea. Patient denies any urinary burning or frequency and patient was having increased pain to lower extremity throughout night. Dilaudid added pain management has improved On 03/26/2021 patient is alert and oriented 3. Patient reports improvement with pain total right lower extremity. Antibiotics adjusted to cefepime per infectious disease. At this time patient denies chest pain or shortness breath. Patient denies nausea vomiting or diarrhea. Patient denies any urinary burning or frequency. PT OT and health care social worker consult placed for discharge planning On 03/27/2021 Patient was seen and examined on the medical floor, he is alert and oriented x 3 in no distress, he denies any complaints there is no fever or chills no headache or dizziness no chest pain no shortness of breath no palpitation no cough no nausea or vomiting no abdominal pain no diarrhea no blood in the stools no burning with urination no frequency or urgency and no hematuria, patient is still complaining of pain and swelling and erythema in the lower extremity On 03/28/2021 Patient was seen and examined on the medical floor, he is alert and oriented x 3 in no distress, he denies any complaints there is no fever or chills no headache or dizziness no chest pain no shortness of breath no palpitation no cough no nausea or vomiting no abdominal pain no diarrhea no blood in the stools no burning with urination no frequency or urgency and no hematuria, patient is feeling better there is less pain and swelling in the lower extremity, continue with current IV antibiotic Will follow in a.m. On 03/29/2021 Patient was seen and examined on the medical floor, he is alert and oriented x 3 in no distress, he denies any complaints there is no fever or chills no headache or dizziness no chest pain no shortness of breath no pal pitation no cough no nausea or vomiting no abdominal pain no diarrhea no blood in the stools no burning with urination no frequency or urgency and no hematuria, there is no weakness or numbness in any of the extremities no change in vision speech or gait. There is a gradual improvement in the right lower extremity pain and swelling and erythema, continue with IV antibiotic continue with local care, will follow in a.m.. On 03/30/2021 Patient was seen and examined on the medical floor, he is alert and oriented x 3 in no distress, he denies any complaints there is no fever or chills no headache or dizziness no chest pain no shortness of breath no palpitation no cough no nausea or vomiting no abdominal pain no diarrhea no blood in the stools no burning with urination no frequency or urgency and no hematuria, there is some improvement in the right lower extremity cellulitis with ulcer, at this time will continue was current antibiotic, possible discharge to home tomorrow with oral antibiotics, and continue local care. Objective - Vital Signs Vital signs: Vital Signs Temp 98 F 03/30/21 08:00 Pulse 71 03/30/21 08:00 Resp 18 03/30/21 08:00 BP 127/69 03/30/21 08:00 Pulse Ox 95 03/30/21 08:00 Intake & Output 03/29/21 03/30/21 03/30/21 18:59 06:59 18:59 Intake Total 920 Balance 920 Intake: Oral 920 Other: Voiding Method Toilet Toilet # Voids 2 2 - Exam In general patient is alert and oriented x3 in no distress HEENT head normocephalic and atraumatic Neck is supple no JVD no goiter no lymphadenopathy no carotid bruit Chest examination is clear to auscultation no crackles no wheezing Cardiac exam reveals regular heart sounds S1 and S2 no gallops no murmurs Abdomen is soft nontender no organomegaly with normal bowel sounds Extremity exam reveals bilateral lower extremity swelling and erythema, there is a large ulcer in the posterior aspect of the right lower extremity about 8 cm in diameter Neurological examination reveals no gross focal deficits - Labs CBC & Chem 7: 03/28/21 08:15 03/28/21 08:15 Labs: Microbiology - Last 24 Hours (Table) 03/24/21 10:30 Gram Stain - Final Leg - Right Wound Culture - Final Enterobacter cloacae Enterobacter cloacae#2 Enterococcus faecalis Staphylococcus aureus Assessment and Plan Plan: Bilateral lower extremity cellulitis with right lower extremity ulcer Underlying history of hypertension Underlying history of hyperlipidemia Underlying history of gastroesophageal reflux disease For DVT prophylaxis subcu Lovenox for GI prophylaxis by mouth Protonix Will check labs and consult infectious disease and wound care continue IV maxipime and local care with Aquacel silver and dressing Pictures taken of cellulitis and ulcer of the right lower extremity PT OT and social work services consulted for discharge planning
--- NOTE | 2021-03-30 20:27 | PN ---
PROGRESS NOTE DATE OF SERVICE: 03/30/2021 REASON FOR FOLLOW UP: Right lower extremity venostasis ulcer and cellulitis. INTERVAL HISTORY: The patient is afebrile. The patient is breathing comfortably. Denies any chest pain or cough. No nausea, vomiting, abdominal pain or pain to the right lower extremity. PHYSICAL EXAMINATION: Blood pressure 132/56, pulse of 71, temperature 98.4. She is 94% on room air. General description: The patient is an elderly female lying in in no distress. Respiratory system: Unlabored breathing, clear to auscultation anteriorly. Heart S1, S2. Regular rate and rhythm. Right leg is currently dressed. No obvious drainage on the dressing. LABS: Hemoglobin is 12.4, white count 6.9, BUN of 21, creatinine 0.86. DIAGNOSTIC IMPRESSION AND PLAN: Patient with right lower extremity venostasis ulcer with secondary cellulitis, multiple pathogen. Patient covered with Unasyn and Cipro; to finish therapy with oral Cipro and Augmentin for about a week. Local care with Aquacel silver dressing and close outpatient followup. MMODL / IJN: [id number] /
[2021-03-30] MEDS: ATORVASTATIN 10 MG TAB PO SCH (23:02)
[2021-03-31 01:42] VITALS: RESP 17
[2021-03-31] MEDS: AMPICILLIN-SULBACTAM 3 GM in SODIUM CHLORIDE 0.9% 100 ML IVPB SCH (05:41)
[2021-03-31] MEDS: hydrALAZINE HCL 25 MG TAB PO SCH (08:28)
[2021-03-31] MEDS: CIPROFLOXACIN HCL 500 MG TAB PO SCH (08:40)
[2021-03-31] MEDS: PANTOPRAZOLE 40 MG TABLET PO SCH (08:40)
[2021-03-31] MEDS: ENOXAPARIN 40 MG/0.4 ML SYRINGE SQ SCH (08:41)
[2021-03-31] MEDS: MONTELUKAST 10 MG TAB PO SCH (08:41)
[2021-03-31] MEDS: atenoloL 25 MG TAB PO SCH (08:41)
[2021-03-31] MEDS: HYDROPHILIC CREAM 180 GM TUBE TOPICAL SCH (08:42)
[2021-03-31] MEDS: POTASSIUM CHLORIDE ER 10 MEQ TAB.ER.PRT PO SCH (08:42)
[2021-03-31 08:45] VITALS: BP 128/73; PULSE 65; TEMP 98.4
--- NOTE | 2021-04-03 11:29 | P.DS ---
Providers Date of admission: 03/23/21 15:47 Expected date of discharge: 03/31/21 Attending physician: Ten Guerrero Consults: 03/23/21 19:13 Consult Physician Routine Consulting Provider: Caleb Babin Consult Reason/Comments: Lower extremity cellulitis with ulcer Do you want consulting provider notified?: Yes Primary care physician: Ten Guerrero [facility] Course: Diagnoses on discharge: Bilateral lower extremity cellulitis with right lower extremity ulcer Underlying history of hypertension Underlying history of hyperlipidemia Underlying history of gastroesophageal reflux disease Hospital course: Dania Vergara, is an 80-year-old female who presented to the office today with pain and swelling and erythema in bilateral lower extremities patient also had a large ulcer in the right calf area, patient stated that she has been going to the wound care clinic and has visiting nurse at home however cellulitis and also has been worsening, she was evaluated in the office and admitted directly to [facility] medical floor, she was started on IV antibiotics cefazolin 1 g IV every 8 hours, infectious disease consultation was requested. On 03/24/2021 patient was seen and examined on the medical floor is alert and oriented 3 in no apparent distress she is complaining of severe pain in her r ight lower extremity especially at the time of changing dressing otherwise she denies any complaints there is no fever or chills no headache or dizziness no chest pain no shortness of breath no cough no nausea or vomiting no abdominal pain no diarrhea no blood in the stools no burning with urination no frequency or urgency and no hematuria On 03/25/2021 patient is alert and oriented 3. Right lower extremity remains erythematous. Patient maintained on cefazolin every 8 hours per ID. Patient denies chest pain or shortness of breath. Patient denies nausea vomiting or diarrhea. Patient denies any urinary burning or frequency and patient was having increased pain to lower extremity throughout night. Dilaudid added pain management has improved On 03/26/2021 patient is alert and oriented 3. Patient reports improvement with pain total right lower extremity. Antibiotics adjusted to cefepime per infectious disease. At this time patient denies chest pain or shortness breath. Patient denies nausea vomiting or diarrhea. Patient denies any urinary burning or frequency. PT OT and social worker psychiatric consult placed for discharge planning On 03/27/2021 Patient was seen and examined on the medical floor, he is alert and oriented x 3 in no distress, he denies any complaints there is no fever or chills no headache or dizziness no chest pain no shortness of breath no palpitation no cough no nausea or vomiting no abdominal pain no diarrhea no blood in the stools no burning with urination no frequency or urgency and no hematuria, patient is still complaining of pain and swelling and erythema in the lower extremity On 03/28/2021 Patient was seen and examined on the medical floor, he is alert and oriented x 3 in no distress, he denies any complaints there is no fever or chills no headache or dizziness no chest pain no shortness of breath no palpitation no cough no nausea or vomiting no abdominal pain no diarrhea no blood in the stools no burning with urination no frequency or urgency and no hematuria, patient is feeling better there is less pain and swelling in the lower extremity, continue with current IV antibiotic Will follow in a.m. On 03/29/2021 Patient was seen and examined on the medical floor, he is alert and oriented x 3 in no distress, he denies any complaints there is no fever or chills no headache or dizziness no chest pain no shortness of breath no palpitat ion no cough no nausea or vomiting no abdominal pain no diarrhea no blood in the stools no burning with urination no frequency or urgency and no hematuria, there is no weakness or numbness in any of the extremities no change in vision speech or gait. There is a gradual improvement in the right lower extremity pain and swelling and erythema, continue with IV antibiotic continue with local care, wi ll follow in a.m.. On 03/30/2021 Patient was seen and examined on the medical floor, he is alert and oriented x 3 in no distress, he denies any complaints there is no fever or chills no headache or dizziness no chest pain no shortness of breath no palpitation no cough no nausea or vomiting no abdominal pain no diarrhea no blood in the stools no burning with urination no frequency or urgency and no hematuria, there is some improvement in the right lower extremity cellulitis with ulcer, at this time will continue was current antibiotic, possible discharge to home tomorrow with oral antibiotics, and continue local care. On 03/31/2021 patient is alert and oriented 3. Patient will be discharged home on Augmentin, Cipro and try a cream. Patient to follow-up with PCP for further management. Patient denies chest pain or shortness of breath. Patient denies nausea vomiting or diarrhea. Patient denies any urinary burning or frequency Patient Condition at Discharge: Stable Plan - Discharge Summary Discharge Rx Participant: No New Discharge Prescriptions: New Hydrophilic Cream [Triad Cream] 1 applic TOPICAL DAILY applic Amoxicillin/Potassium Clav [Augmentin 875-125 Tablet] 1 tab PO Q12HR 7 Days #14 tab Ciprofloxacin HCl [Cipro] 500 mg PO BID tab Continue hydrALAZINE HCL 25 mg PO BID atenoloL [Atenolol] 25 mg PO BID Furosemide [Lasix] 40 mg PO DAILY PRN PRN Reason: Edema HYDROcodone/APAP 10-325MG [Delta 10-325] 1 tab PO Q8HR PRN PRN Reason: Pain Ergocalciferol (Vitamin D2) [Vitamin D2] 50,000 unit PO THAPA Simvastatin [Zocor] 20 mg PO HS Montelukast [Singulair] 10 mg PO DAILY Potassium Chloride [K-Tab ER] 10 meq PO DAILY Discontinued Cephalexin [Keflex] 500 mg PO Q6H Discharge Medication List Furosemide [Lasix] 40 mg PO DAILY PRN 01/18/17 [History] atenoloL [Atenolol] 25 mg PO BID 01/18/17 [History] hydrALAZINE HCL 25 mg PO BID 01/18/17 [History] Ergocalciferol (Vitamin D2) [Vitamin D2] 50,000 unit PO THAPA 02/21/17 [History] HYDROcodone/APAP 10-325MG [Delta 10-325] 1 tab PO Q8HR PRN 02/21/17 [History] Montelukast [Singulair] 10 mg PO DAILY 08/18/19 [History] Potassium Chloride [K-Tab ER] 10 meq PO DAILY 08/18/19 [History] Simvastatin [Zocor] 20 mg PO HS 08/18/19 [History] Amoxicillin/Potassium Clav [Augmentin 875-125 Tablet] 1 tab PO Q12HR 7 Days #14 tab 03/31/21 [Rx] Ciprofloxacin HCl [Cipro] 500 mg PO BID tab 03/31/21 [Rx] Hydrophilic Cream [Triad Cream] 1 applic TOPICAL DAILY applic 03/31/21 [Rx] Follow up Appointment(s)/Referral(s): [facility] [NON-STAFF] - As Needed Ten Guerrero MD [Primary Care Provider] - 04/03/21 11:15 am Patient Instructions/Handouts: Cellulitis (DC) Discharge Disposition: HOME SELF-CARE
--- NOTE | 2021-04-03 17:22 | P.PN ---
Progress Note - Text Progress Note Date: 03/31/21 REASON FOR FOLLOW UP: Right lower extremity venostasis ulcer and cellulitis. INTERVAL HISTORY: The patient remains to be afebrile. The patient is breathing comfortably. The patient denies chest pain or cough. No nausea, vomiting, abdominal pain or pain to the right lower e xtremity is currently controlled PHYSICAL EXAMINATION: Blood pressure 130/50, pulse of 70, temperature 98.4. She is 94% on room air. General description: The patient is an elderly female lying in in no distress. Respiratory system: Unlabored breathing, clear to auscultation anteriorly. Heart S1, S2. Regular rate and rhythm. Right leg is currently dressed. No obvious drainage on the dressing. LABS: Reviewed. DIAGNOSTIC IMPRESSION AND PLAN: Patient with right lower extremity venostasis ulcer with secondary cellulitis, multiple pathogen. Patient to finish therapy with oral Cipro and Augmentin for about a week. Local care with Aquacel silver dressing and follow-up in the wound care center next week
== END 2021-03-31 14:18 | disposition home or self-care (01) | DRG 593 ==
LOC: 4SSUR 15:47
PROVIDERS: ADMIT Internal Medicine; ATTEND Internal Medicine
PROC: 05HF33Z Insertion of Infusion Device into Left Cephalic Vein, Percutaneous Approach (ICD-10-PCS; principal; 2021-03-25 16:10)
DX: L97.219 Non-pressure chronic ulcer of right calf with unspecified severity (principal); L03.115 Cellulitis of right lower limb; L03.116 Cellulitis of left lower limb; K21.9 Gastro-esophageal reflux disease without esophagitis; L97.312 Non-pressure chronic ulcer of right ankle with fat layer exposed; M19.90 Unspecified osteoarthritis, unspecified site; I10 Essential (primary) hypertension; E78.5 Hyperlipidemia, unspecified; F32.9 Major depressive disorder, single episode, unspecified; F41.9 Anxiety disorder, unspecified; B96.20 Unspecified Escherichia coli [E. coli] as the cause of diseases classified elsewhere; B95.61 Methicillin susceptible Staphylococcus aureus infection as the cause of diseases classified elsewhere; B95.2 Enterococcus as the cause of diseases classified elsewhere; Z79.899 Other long term (current) drug therapy; Z96.653 Presence of artificial knee joint, bilateral; Z96.1 Presence of intraocular lens; B96.89 Other specified bacterial agents as the cause of diseases classified elsewhere
CPT/HCPCS: 36410; 76937; 80053; 83036; 84443; 85025; 87070; 87077; 87186; 87205

== ENCOUNTER 2021-10-09 10:22 | Day surgery (SDC) | payer MEDICARE, OTHER ==
[2021-10-08 11:22] VITALS: BMI 39.6
[2021-10-09 11:08] VITALS: TEMP 97.2
[2021-10-09 14:21] VITALS: BP 137/63; PULSE 73; RESP 16
--- NOTE | 2021-11-06 14:40 | IR ---
EXAMINATION TYPE: IR cvc insert >=5 years DATE OF EXAM: 11/06/2021 COMPARISON: NONE CLINICAL HISTORY: Infection Needs long-term intravenous access for antibiotics. PROCEDURE: Hand hygiene obtained with soap and water and alcohol-based hand rub. After informed consent, the skin overlying the left upper extremity vein was localized with ultrasoun d and noted to be compressible and patent. An ultrasound image was obtained and submitted on the pat ient's chart. The overlying skin was prepped and draped and Lidocaine was used for local anesthesia. A skin joyce was made with a scalpel. Access was gained to the vein under ultrasound guidance with a 21 gauge needle and a 0.018 inch wire was advanced. Access site was dilated with Peel-Away sheath and catheter tailored to the appropriate length and advanced such that the distal tip is at the cavoa trial junction. Spot image was obtained verifying placement. Catheter was fixed to the skin and a s terile dressing was placed following hemostasis. Catheter was aspirated and flushed with saline. Tahir arnold was discharged in stable condition without complication.Maximal barrier technique is utilized. Ultrasound image is documented on the chart. Ultrasound used with sterile technique. Fluoro time and fluoroscopic images submitted to document procedure: 0.4 minutes fluoroscopy time, 21 4 intraoperative C-arm images document the procedure IMPRESSION: STATUS POST ULTRASOUND AND FLUOROSCOPIC GUIDED PICC LINE PLACEMENT, READY FOR USE. THIS PROCEDURE WAS PERFORMED BY THE UNDERSIGNED.
== END 2021-10-09 14:32 | disposition home or self-care (01) ==
LOC: CATHCVL 10:22
PROVIDERS: ATTEND Radiology Diagnostic Radiology
DX: I10 Essential (primary) hypertension (principal); L03.119 Cellulitis of unspecified part of limb; M50.30 Other cervical disc degeneration, unspecified cervical region; F32.A Depression, unspecified; Z20.822 Contact with and (suspected) exposure to COVID-19; K21.9 Gastro-esophageal reflux disease without esophagitis; E78.5 Hyperlipidemia, unspecified; M85.88 Other specified disorders of bone density and structure, other site; E55.9 Vitamin D deficiency, unspecified; Z80.3 Family history of malignant neoplasm of breast; Z79.899 Other long term (current) drug therapy; Z88.2 Allergy status to sulfonamides
CPT/HCPCS: 36573; 82565; 84520; 87635

== ENCOUNTER 2021-10-21 11:44 | Emergency (ER) | payer MEDICARE, OTHER ==
[2021-10-21 12:53] VITALS: TEMP 99.2
[2021-10-21 15:36] VITALS: BP 131/82; PULSE 62; RESP 18
[2021-10-21] MEDS ORDERED: cefTRIAXone IN SWFI 1,000 MG/10 ML SYRINGE IVP STA (15:55)
--- NOTE | 2021-10-21 16:07 | ED ---
General Adult HPI - General Chief complaint: Recheck/Abnormal Lab/Rx Stated complaint: arm infection Source: patient, RN notes reviewed, old records reviewed Mode of arrival: wheelchair Limitations: no limitations - History of Present Illness Initial comments: 81-year-old female with dislodged and leaking peripherally inserted central catheter. Patient is currently on ceftriaxone 2 g for a lower tremor cellulitis. Her home care nurse had noted that there was some leaking a purulent drainage at the site. This had been partially dislodged. No fever. No pain. Patient has several more days of antibiotics to receive. - Related Data Home Medications Medication Instructions Recorded Confirmed Furosemide [Lasix] 40 mg PO DAILY PRN 01/18/17 10/09/21 atenoloL 25 mg PO BID 01/18/17 10/09/21 hydrALAZINE HCL 25 mg PO BID 01/18/17 10/09/21 Ergocalciferol (Vitamin D2) 50,000 unit PO THAPA 02/21/17 10/08/21 [Vitamin D2] HYDROcodone/APAP 10-325MG [[place] 1 tab PO Q8HR PRN 02/21/17 10/08/21 10-325] Montelukast [Singulair] 10 mg PO DAILY 08/18/19 10/09/21 Potassium Chloride [K-Tab ER] 10 meq PO DAILY 08/18/19 10/09/21 Simvastatin [Zocor] 20 mg PO HS 08/18/19 10/09/21 Previous Rx's Medication Instructions Recorded Hydrophilic Cream [Triad Cream] 1 applic TOPICAL DAILY applic 03/31/21 Allergies Allergy/AdvReac Type Severity Reaction Status Date / Time adhesive tape Allergy Unknown Rash/Hives Verified 10/21/21 12:50 Sulfa (Sulfonamide Allergy Rash/Hives Verified 10/21/21 12:50 Antibiotics) Review of Systems ROS Statement: Those systems with pertinent positive or pertinent negative responses have been documented in the HPI. ROS Other: All systems not noted in ROS Statement are negative. Past Medical History Past Medical History: GERD/Reflux, Hypertension, Osteoarthritis (OA), Skin Disorder Additional Past Medical History / Comment(s): Pt denies hyperlipidemia, chronic low back/cervical and bilateral shoulder pain, benign colon polyps/diverticular disease, bilateral lower extremity cellulitis but R leg much more often, UTIs, polynephritis, hiatal hernia many years ago. History of Any Multi-Drug Resistant Organisms: None Reported Past Surgical History: Appendectomy, Cholecystectomy, Joint Replacement, Tubal Ligation Additional Past Surgical History / Comment(s): Bilateral total knee arthroplasties, pain clinic procedures, colonoscopies/benign polypectomies, bilateral cataract removals/lens implants, PICC line. Past Anesthesia/Blood Transfusion Reactions: No Reported Reaction Past Psychological History: Anxiety, Depression Smoking Status: Never smoker Past Alcohol Use History: Rare Past Drug Use History: None Reported - Past Family History Mother Family Medical History: Cancer Additional Family Medical History / Comment(s): BREAST CANCER. Father Family Medical History: Cancer Additional Family Medical History / Comment(s): LIVER CANCER/HEART PROBLEMS. Son(s) Family Medical History: Cancer Additional Family Medical History / Comment(s): MULTIPLE MYELOMA/bone cancer- PASSED 2015. General Exam Limitations: no limitations General appearance: alert, in no apparent distress Head exam: Present: atraumatic, normocephalic Eye exam: Present: normal appearance, PERRL ENT exam: Present: normal exam Neck exam: Present: normal inspection. Absent: tenderness, meningismus Respiratory exam: Present: normal lung sounds bilaterally. Absent: respiratory distress, wheezes Cardiovascular Exam: Present: regular rate, normal rhythm GI/Abdominal exam: Present: soft. Absent: distended, tenderness Extremities exam: Present: other (There is a contact dermatitis at the site of the dressing. The PICC line is dislodged with some drainage surrounding it.) Course Vital Signs 10/21/21 10/21/21 12:50 15:35 Temperature 99.2 F Pulse Rate 76 62 Respiratory 20 18 Rate Blood Pressure 123/79 131/82 O2 Sat by Pulse 96 96 Oximetry Medical Decision Making - Medical Decision Making PICC line removed, the skin is cleansed. A midline catheter is placed for the remainder of the patient's IV antibiotics. She's given today's dose of ceftriaxone. She will follow-up with her primary care physician. Disposition Clinical Impression: Cellulitis of right leg, PICC (peripherally inserted central catheter) removal Disposition: HOME SELF-CARE Condition: Fair Is patient prescribed a controlled substance at d/c from ED?: No Referrals: Ten Guerrero MD [Primary Care Provider] - 1-2 days Time of Disposition: 16:07
== END 2021-10-21 16:16 | disposition home or self-care (01) ==
LOC: EC 11:44
DX: L03.115 Cellulitis of right lower limb (principal); I10 Essential (primary) hypertension; M19.90 Unspecified osteoarthritis, unspecified site; F41.9 Anxiety disorder, unspecified; F32.A Depression, unspecified; Z72.89 Other problems related to lifestyle
CPT/HCPCS: 36410; 76937; 99283; 96374; J0696

== ENCOUNTER 2022-09-24 11:47 | Inpatient (IN) | payer MEDICARE, OTHER ==
[2022-09-24 14:32] LABS: Basophils % (A) 1 %; Eosinophils # (A) 0.1 k/uL (0-0.7); Eosinophils % (A) 1 %; HCT 36.3 % (34.0-46.0); Hypochromasia Slight; Lymphocytes # (A) 1.6 k/uL (1.0-4.8); Lymphocytes % (A) 20 %; MCH 33.5 pg (25.0-35.0); MCV 101.7 fL (80.0-100.0); Macrocytosis Slight; Mean Platelet Volume 8.1; Monocytes # (A) 0.6 k/uL (0-1.0); Monocytes % (A) 8 %; Neutrophils # (A) 5.5 k/uL (1.3-7.7); Neutrophils % (A) 67 %; Platelet Count 249 k/uL (150-450); RBC 3.57 m/uL (3.80-5.40); WBC 8.2 k/uL (3.8-10.6)
[2022-09-24 14:41] LABS: Albumin 3.7 g/dL (3.5-5.0); Potassium 4.3 mmol/L (3.5-5.1); Total Bilirubin 0.3 mg/dL (0.2-1.3); Total Protein 6.5 g/dL (6.3-8.2)
--- NOTE | 2022-09-24 15:59 | XR ---
EXAMINATION TYPE: XR ankle complete RT DATE OF EXAM: 09/24/2022 COMPARISON: NONE HISTORY: Soft tissue wound and swelling FINDINGS: Three views of the ankle demonstrate the ankle mortise to be intact and symmetric. The joint spaces are preserved. The osseous structures are intact. A calcaneal spur and diffuse osteopenia. Vascular calcifications noted. Arthritic change of the tarsometatarsal junction. No destructive changes seen. Soft tissue swelling and marked irregularity along the lateral margin of the left lower extremity sug gestive of ulceration. Cortical thickening and faint periosteal reaction of the distal tibia nonspeci fic. IMPRESSION: 1. Soft tissue swelling and marked irregularity along the lateral margin of the left lower extremity suggestive of ulceration. Suggestive of ulceration. No evidence of destructive change to suggest oste omyelitis.
[2022-09-24] MEDS ORDERED: PIPERACILLIN-TAZOBACTAM 3.375 GM in SODIUM CHLORIDE 0.9% 100 ML IVPB STA (16:04)
[2022-09-24] MEDS ORDERED: MORPHINE SULFATE 4 MG/ML SYRINGE IVP STA (16:04)
[2022-09-24] MEDS: SODIUM CHLORIDE 0.9% 1,000 ML IV SCH ×2 (16:30→22:01)
[2022-09-24] MEDS ORDERED: NALOXONE 0.4 MG/ML 1 ML VIAL IV PRN (16:55)
--- NOTE | 2022-09-24 17:47 | ED ---
General Adult HPI - General Chief complaint: Recheck/Abnormal Lab/Rx Stated complaint: Cellulitis, Sent by PCP Time Seen by Provider: 09/24/22 13:42 Source: patient Mode of arrival: wheelchair Limitations: no limitations - History of Present Illness Initial comments: Patient is an 81-year-old female who was sent in by her PCP Dr. Guerrero for right leg cellulitis. Patient has an ulcer to the right ankle that has been worsening since July. States that the ulcer has become increasingly red and tender. It is also quite moist and is letting off of her amount of discharge. She was seen at Dr. Guerrero's office on Tuesday and they advised her to report to the ER. Patient states that she had to make arrangements for her stay in the hospital, and was able to present today for treatment. She denies any pain within the joint, fever, chills, nausea, vomiting, abdominal pain, chest pain, difficulty breathing. - Related Data Home Medications Medication Instructions Recorded Confirmed Furosemide [Lasix] 40 mg PO DAILY PRN 01/18/17 10/09/21 atenoloL 25 mg PO BID 01/18/17 10/09/21 hydrALAZINE HCL 25 mg PO BID 01/18/17 10/09/21 HYDROcodone/APAP 10-325MG [[place] 1 tab PO Q8HR PRN 02/21/17 10/08/21 10-325] Montelukast [Singulair] 10 mg PO DAILY 08/18/19 10/09/21 Potassium Chloride [K-Tab ER] 10 meq PO DAILY 08/18/19 10/09/21 Simvastatin [Zocor] 20 mg PO HS 08/18/19 10/09/21 Cephalexin [Keflex] 500 mg PO Q6HR 09/24/22 09/24/22 FLUoxetine HCL [PROzac] 10 mg PO DAILY 09/24/22 09/24/22 traZODone HCL [Desyrel] 50 mg PO HS 09/24/22 09/24/22 Allergies Allergy/AdvReac Type Severity Reaction Status Date / Time adhesive tape Allergy Unknown Rash/Hives Verified 09/24/22 17:43 Sulfa (Sulfonamide Allergy Rash/Hives Verified 09/24/22 17:43 Antibiotics) Review of Systems ROS Statement: Those systems with pertinent positive or pertinent negative responses have been documented in the HPI. ROS Other: All systems not noted in ROS Statement are negative. Past Medical History Past Medical History: GERD/Reflux, Hypertension, Osteoarthritis (OA), Skin Disorder Additional Past Medical History / Comment(s): Pt denies hyperlipidemia, chronic low back/cervical and bilateral shoulder pain, benign colon polyps/diverticular disease, bilateral lower extremity cellulitis but R leg much more often, UTIs, polynephritis, hiatal hernia many years ago. History of Any Multi-Drug Resistant Organisms: None Reported Past Surgical History: Appendectomy, Cholecystectomy, Joint Replacement, Tubal Ligation Additional Past Surgical History / Comment(s): Bilateral total knee arthroplasties, pain clinic procedures, colonoscopies/benign polypectomies, bila teral cataract removals/lens implants, PICC line. Past Anesthesia/Blood Transfusion Reactions: No Reported Reaction Past Psychological History: Anxiety, Depression Smoking Status: Never smoker Past Alcohol Use History: Rare Past Drug Use History: None Reported - Past Family History Mother Family Medical History: Cancer Additional Family Medical History / Comment(s): BREAST CANCER. Father Family Medical History: Cancer Additional Family Medical History / Comment(s): LIVER CANCER/HEART PROBLEMS. Son(s) Family Medical History: Cancer Additional Family Medical History / Comment(s): MULTIPLE MYELOMA/bone cancer- PASSED 2015. General Exam Limitations: no limitations General appearance: alert, in no apparent distress Head exam: Present: atraumatic, normocephalic, normal inspection Eye exam: Present: normal appearance Neck exam: Present: normal inspection Respiratory exam: Present: normal lung sounds bilaterally. Absent: respiratory distress, wheezes, rales, rhonchi, stridor Cardiovascular Exam: Present: regular rate, normal rhythm, normal heart sounds. Absent: systolic murmur, diastolic murmur, rubs, gallop, clicks Neurological exam: Present: alert, oriented X3, CN II-XII intact Psychiatric exam: Present: normal affect, normal mood Skin exam: Present: other (large ulceration to the right ankle) Course Vital Signs 09/24/22 12:00 Temperature 97.8 F Pulse Rate 96 Respiratory 16 Rate Blood Pressure 137/69 O2 Sat by Pulse 94 L Oximetry Medical Decision Making - Medical Decision Making Patient is an 81-year-old female presenting for evaluation of cellulitis, sent by her PCP Dr. Guerrero. Patient has worsening ulcer to the right ankle but has been ongoing since July. On examination it is erythematous and tender. Wound culture is obtained. Blood cultures are ordered and patient is started on Zosyn. Lab work shows WBC 8.2. CMP shows BUN 21, likely due to hydration, patient is receiving IV fluids. Ankle x-ray suggests ulceration, no evidence of destructive change to suggest osteomyelitis. I spoke with Dr. Guerrero who agreed to admit the patient. Patient agreeable with this plan. I discussed this case with my attending Dr. Ascencio - Lab Data Result diagrams: 09/24/22 14:18 09/24/22 14:18 Lab Results 09/24/22 09/24/22 09/24/22 Range/Units 14:18 14:18 14:18 WBC 8.2 (3.8-10.6) k/uL RBC 3.57 L (3.80-5.40) m/uL Hgb 12.0 (11.4-16.0) gm/dL Hct 36.3 (34.0-46.0) % MCV 101.7 H (80.0-100.0) fL MCH 33.5 (25.0-35.0) pg MCHC 33.0 (31.0-37.0) g/dL RDW 13.0 (11.5-15.5) % Plt Count 249 (150-450) k/uL MPV 8.1 Neutrophils % 67 % Lymphocytes % 20 % Monocytes % 8 % Eosinophils % 1 % Basophils % 1 % Neutrophils # 5.5 (1.3-7.7) k/uL Lymphocytes # 1.6 (1.0-4.8) k/uL Monocytes # 0.6 (0-1.0) k/uL Eosinophils # 0.1 (0-0.7) k/uL Basophils # 0.0 (0-0.2) k/uL Hypochromasia Slight Macrocytosis Slight Sodium 144 (137-145) mmol/L Potassium 4.3 (3.5-5.1) mmol/L Chloride 105 (98-107) mmol/L Carbon Dioxide 34 H (22-30) mmol/L Anion Gap 5 mmol/L BUN 21 H (7-17) mg/dL Creatinine 0.94 (0.52-1.04) mg/dL Est GFR (CKD-EPI)AfAm 66 (>60 ml/min/1.73 sqM) Est GFR (CKD-EPI)NonAf 57 (>60 ml/min/1.73 sqM) Glucose 96 (74-99) mg/dL Plasma Lactic Acid [place] 1.4 (0.7-2.0) mmol/L Calcium 9.0 (8.4-10.2) mg/dL Magnesium 2.0 (1.6-2.3) mg/dL Total Bilirubin 0.3 (0.2-1.3) mg/dL AST 24 (14-36) U/L ALT 16 (4-34) U/L Alkaline Phosphatase 74 (38-126) U/L Total Protein 6.5 (6.3-8.2) g/dL Albumin 3.7 (3.5-5.0) g/dL Disposition Clinical Impression: Cellulitis, Ulceration Disposition: ADMITTED IP TO THIS [facility] Condition: Fair Referrals: Ten Guerrero MD [Primary Care Provider] - 1-2 days Time of Disposition: 17:47 Decision to Admit Reason: Admit from EC Decision Date: 09/24/22 Decision Time: 17:47
[2022-09-24 19:05] LABS: Appearance,Urine Clear (Clear); Bilirubin,Urine Negative (Negative); Blood,Urine Negative (Negative); Color,Urine Yellow; Glucose,Urine (UA) Negative (Negative); Ketones,Urine Negative (Negative); Leukocyte Esterase,Urine Small (Negative); Mucus,Urine Rare /hpf; Nitrite,Urine Negative (Negative); Protein,Urine Trace (Negative); RBC,Urine 20 /hpf (0-5); Specific Gravity,Urine 1.022 (1.001-1.035); Squamous Epithelial Cell,Urine 1 /hpf (0-4); Urobilinogen,Urine <2.0 mg/dL (<2.0); WBC,Urine 1 /hpf (0-5)
[2022-09-24] MEDS: CEPHALEXIN 500 MG CAP PO SCH (22:54)
[2022-09-24] MEDS: HYDROcodone/APAP 5-325MG 1 EACH TAB PO PRN (22:54)
[2022-09-25] MEDS: HYDROcodone/APAP 5-325MG 1 EACH TAB PO PRN ×5 (04:58→20:49)
[2022-09-25] MEDS: CEPHALEXIN 500 MG CAP PO SCH ×2 (05:00→11:31)
[2022-09-25] MEDS: atenoloL 25 MG TAB PO SCH ×2 (09:07→20:51)
[2022-09-25] MEDS: FUROSEMIDE 40 MG TAB PO SCH (09:07)
[2022-09-25] MEDS: MONTELUKAST 10 MG TAB PO SCH (09:07)
[2022-09-25] MEDS: POTASSIUM CHLORIDE ER 10 MEQ TAB.ER.PRT PO SCH (09:07)
[2022-09-25] MEDS: FLUoxetine HCL 10 MG CAP PO SCH (09:08)
[2022-09-25] MEDS: hydrALAZINE HCL 25 MG TAB PO SCH ×2 (09:08→20:52)
[2022-09-25] MEDS: SODIUM CHLORIDE 0.9% 1,000 ML IV SCH (11:31)
--- NOTE | 2022-09-25 13:27 | P.GSCN ---
History of Present Illness Consult date: 09/25/22 History of present illness: Patient is an 81-year-old female who is sent in by her primary care for right lower extremity cellulitis. She has a significant history of cellulitis and wounds were right lower extremity that extends up until approximately 18 years ago when she had an injury to the area, the wounds have common gone since then. She's had multiple treatments in multiple visits with wound care. She states that the ulcer itself has gotten significantly worse in the past few weeks and the drainage has significantly worsened. This uncomfortable for her. She had makes arrangements prior to being sent in by her primary care physician therefore she finally reported to the ER as recommended yesterday afternoon. She denies any fevers, chills, nausea or vomiting. Past Medical History Past Medical History: GERD/Reflux, Hyperlipidemia, Hypertension, Osteoarthritis (OA), Skin Disorder Additional Past Medical History / Comment(s): chronic low back/cervical and bilateral shoulder pain, benign colon polyps/diverticular disease, bilateral lower extremity cellulitis but R leg much more often, UTIs, polynephritis, hiatal hernia many years ago. History of Any Multi-Drug Resistant Organisms: None Reported Past Surgical History: Appendectomy, Cholecystectomy, Joint Replacement, Tubal Ligation Additional Past Surgical History / Comment(s): Bilateral total knee arthroplasties, pain clinic procedures, colonoscopies/benign polypectomies, bilateral cataract removals/lens implants, PICC line. Past Anesthesia/Blood Transfusion Reactions: No Reported Reaction Past Psychological History: No Psychological Hx Reported Additional Psychological History / Comment(s): Pt resides alone with her dog. She uses a cane to ambulate. She drives. Her son lives across from her. Smoking Status: Never smoker Past Alcohol Use History: Rare Past Drug Use History: None Reported - Past Family History Mother Family Medical History: Cancer Additional Family Medical History / Comment(s): BREAST CANCER. at 28 years old Father Family Medical History: Cancer Additional Family Medical History / Comment(s): LIVER CANCER/HEART PROBLEMS. Son(s) Family Medical History: Cancer Additional Family Medical History / Comment(s): MULTIPLE MYELOMA/bone cancer- PASSED 2015. Medications and Allergies Home Medications Medication Instructions Recorded Confirmed Type Furosemide [Lasix] 40 mg PO DAILY 01/18/17 09/24/22 History atenoloL 25 mg PO BID 01/18/17 09/24/22 History hydrALAZINE HCL 25 mg PO BID 01/18/17 09/24/22 History HYDROcodone/APAP 10-325MG [[place] 1 tab PO Q8HR PRN 02/21/17 09/24/22 History 10-325] Montelukast [Singulair] 10 mg PO DAILY 08/18/19 09/24/22 History Potassium Chloride [K-Tab ER] 10 meq PO DAILY 08/18/19 09/24/22 History Simvastatin [Zocor] 20 mg PO HS 08/18/19 09/24/22 History Cephalexin [Keflex] 500 mg PO Q6HR 09/24/22 09/24/22 History FLUoxetine HCL [PROzac] 10 mg PO DAILY 09/24/22 09/24/22 History traZODone HCL [Desyrel] 50 mg PO HS 09/24/22 09/24/22 History Allergies Allergy/AdvReac Type Severity Reaction Status Date / Time adhesive tape Allergy Unknown Rash/Hives Verified 09/24/22 17:43 Sulfa (Sulfonamide Allergy Rash/Hives Verified 09/24/22 17:43 Antibiotics) Surgical - Exam Vital Signs Temp Pulse Resp BP Pulse Ox 97.8 F 96 16 137/69 94 L 09/24/22 12:00 09/24/22 12:00 09/24/22 12:00 09/24/22 12:00 09/24/22 12:00 Genitals a pleasant cooperative elderly female in no acute distress. HEENT is normocephalic, atraumatic, extraocular motion intact. Heart appears regular. Lungs are clear bilaterally with diminished. Abdomen is soft obese nontender. Extremity show no clubbing or cyanosis. There is moderate bilateral lower extremity edema she has palpable pedal pulses bilaterally. The right lower extremity a significant erythema and serous drainage. There is green drainage on the dressing. The wound itself appears relatively clean, no significant purulence or fluctuance Results - Labs 09/24/22 14:18 09/24/22 14:18 Abnormal Lab Results - Last 24 Hours (Table) 09/24/22 09/24/22 09/24/22 Range/Units 14:18 14:18 18:53 RBC 3.57 L (3.80-5.40) m/uL MCV 101.7 H (80.0-100.0) fL Carbon Dioxide 34 H (22-30) mmol/L BUN 21 H (7-17) mg/dL Urine Protein Trace H (Negative) Ur Leukocyte Esterase Small H (Negative) Urine RBC 20 H (0-5) /hpf Urine Mucus Rare H (None) /hpf Microbiology - Last 24 Hours (Table) 09/24/22 15:53 Wound Culture - Preliminary Ankle - Right Diabetes panel 09/24/22 Range/Units 14:18 Sodium 144 (137-145) mmol/L Potassium 4.3 (3.5-5.1) mmol/L Chloride 105 (98-107) mmol/L Carbon Dioxide 34 H (22-30) mmol/L BUN 21 H (7-17) mg/dL Creatinine 0.94 (0.52-1.04) mg/dL Glucose 96 (74-99) mg/dL Calcium 9.0 (8.4-10.2) mg/dL AST 24 (14-36) U/L ALT 16 (4-34) U/L Alkaline Phosphatase 74 (38-126) U/L Total Protein 6.5 (6.3-8.2) g/dL Albumin 3.7 (3.5-5.0) g/dL Calcium panel 09/24/22 Range/Units 14:18 Calcium 9.0 (8.4-10.2) mg/dL Albumin 3.7 (3.5-5.0) g/dL Pituitary panel 09/24/22 Range/Units 14:18 Sodium 144 (137-145) mmol/L Potassium 4.3 (3.5-5.1) mmol/L Chloride 105 (98-107) mmol/L Carbon Dioxide 34 H (22-30) mmol/L BUN 21 H (7-17) mg/dL Creatinine 0.94 (0.52-1.04) mg/dL Glucose 96 (74-99) mg/dL Calcium 9.0 (8.4-10.2) mg/dL Adrenal panel 09/24/22 Range/Units 14:18 Sodium 144 (137-145) mmol/L Potassium 4.3 (3.5-5.1) mmol/L Chloride 105 (98-107) mmol/L Carbon Dioxide 34 H (22-30) mmol/L BUN 21 H (7-17) mg/dL Creatinine 0.94 (0.52-1.04) mg/dL Glucose 96 (74-99) mg/dL Calcium 9.0 (8.4-10.2) mg/dL Total Bilirubin 0.3 (0.2-1.3) mg/dL AST 24 (14-36) U/L ALT 16 (4-34) U/L Alkaline Phosphatase 74 (38-126) U/L Total Protein 6.5 (6.3-8.2) g/dL Albumin 3.7 (3.5-5.0) g/dL Assessment and Plan Assessment: Right lower extremity cellulitis Right lower extremity wound Likely venous insufficiency with wounds Right lower extremity edema Plan: I had the pleasure of seeing Dania. I do believe at this point the most important thing is going to be continuation of her antibiotics. I do not believe she needs operative intervention or surgical debridement at this point. Continue local wound care. Likely would attempt an Unna boot once some improvement of the cellulitis. Will likely need outpatient workup and evaluation for venous reflux
--- NOTE | 2022-09-25 16:17 | P.HPIM ---
History of Present Illness H&P Date: 09/25/22 Dania Vergara, is a year old male who presented to [facility] emergency room with a chief complaint of right lower extremity cellulitis with large ulcer, patient had difficulty with bilateral lower extremity cellulitis on and off over the years she was seen repeatedly at the wound care clinic and was treated for infections and open ulcers. Recently she presented to the office w ith significant infection in the right lower extremity and large ulcer on the lateral side above the right ankle she was treated with oral antibiotic cephalexin but did not have significant improvement, she presented to emergency room, and was subsequently admitted to medical floor she was started on IV antibiotics Zosyn, infectious disease and vascular surgery consultation were requested. She was evaluated in the emergency room vital examination on presentation revealed a temperature of 98.7 pulse 96 respirations 16 blood pressure 137/69 pulse ox 94% on room air Laboratory data revealed a white blood count of 8.2 hemoglobin 12.0 platelet count 249 sodium 144 potassium 4.3 chloride 105 CO2 34 BUN 21 creatinine 0.94 Testing in the emergency room revealed right ankle x-ray revealed evidence of cellulitis with ulcer but no evidence of osteomyelitis Patient was admitted to medical floor for further evaluation and treatment Past Medical History Past Medical History: GERD/Reflux, Hyperlipidemia, Hypertension, Osteoarthritis (OA), Skin Disorder Additional Past Medical History / Comment(s): chronic low back/cervical and luiz ateral shoulder pain, benign colon polyps/diverticular disease, bilateral lower extremity cellulitis but R leg much more often, UTIs, polynephritis, hiatal hernia many years ago. History of Any Multi-Drug Resistant Organisms: None Reported Past Surgical History: Appendectomy, Cholecystectomy, Joint Replacement, Tubal Ligation Additional Past Surgical History / Comment(s): Bilateral total knee arthroplasties, pain clinic procedures, colonoscopies/benign polypectomies, bilateral cataract removals/lens implants, PICC line. Past Anesthesia/Blood Transfusion Reactions: No Reported Reaction Past Psychological History: No Psychological Hx Reported Additional Psychological History / Comment(s): Pt resides alone with her dog. She uses a cane to ambulate. She drives. Her son lives across from her. Smoking Status: Never smoker Past Alcohol Use History: Rare Past Drug Use History: None Reported - Past Family History Mother Family Medical History: Cancer Additional Family Medical History / Comment(s): BREAST CANCER. at 28 years old Father Family Medical History: Cancer Additional Family Medical History / Comment(s): LIVER CANCER/HEART PROBLEMS. Son(s) Family Medical History: Cancer Additional Family Medical History / Comment(s): MULTIPLE MYELOMA/bone cancer- PASSED 2015. Medications and Allergies Home Medications Medication Instructions Recorded Confirmed Type Furosemide [Lasix] 40 mg PO DAILY 01/18/17 09/24/22 History atenoloL 25 mg PO BID 01/18/17 09/24/22 History hydrALAZINE HCL 25 mg PO BID 01/18/17 09/24/22 History HYDROcodone/APAP 10-325MG [[place] 1 tab PO Q8HR PRN 02/21/17 09/24/22 History 10-325] Montelukast [Singulair] 10 mg PO DAILY 08/18/19 09/24/22 History Potassium Chloride [K-Tab ER] 10 meq PO DAILY 08/18/19 09/24/22 History Simvastatin [Zocor] 20 mg PO HS 08/18/19 09/24/22 History Cephalexin [Keflex] 500 mg PO Q6HR 09/24/22 09/24/22 History FLUoxetine HCL [PROzac] 10 mg PO DAILY 09/24/22 09/24/22 History traZODone HCL [Desyrel] 50 mg PO HS 09/24/22 09/24/22 History Allergies Allergy/AdvReac Type Severity Reaction Status Date / Time adhesive tape Allergy Unknown Rash/Hives Verified 09/24/22 17:43 Sulfa (Sulfonamide Allergy Rash/Hives Verified 09/24/22 17:43 Antibiotics) Physical Exam Vitals: Vital Signs Temp Pulse Resp BP Pulse Ox 09/25/22 09:03 75 130/75 09/25/22 05:00 97.7 F 61 16 124/68 95 09/24/22 20:00 98 F 79 16 146/76 96 Intake and Output 09/24/22 09/25/22 09/25/22 22:59 06:59 14:59 Other: Voiding Method Toilet Toilet # Voids 1 Weight 98.43 kg In general patient is alert and oriented x 3 in no distress HEENT head normocephalic and atraumatic Neck is supple no JVD no goiter no lymphadenopathy no carotid bruit Chest examination is clear to auscultation no crackles no wheezing Cardiac exam reveals regular heart sounds S1 and S2 no gallops no murmurs Abdomen is soft nontender no organomegaly with normal bowel sounds Extremity exam reveals no edema no cyanosis or clubbing, there is severe erythema involving the right lower extremity with large ulcer on the lateral si de above the ankle Neurological examination reveals no gross focal deficits Results CBC & Chem 7: 09/24/22 14:18 09/24/22 14:18 Labs: Abnormal Lab Results - Last 24 Hours (Table) 09/24/22 09/24/22 09/24/22 Range/Units 14:18 14:18 18:53 RBC 3.57 L (3.80-5.40) m/uL MCV 101.7 H (80.0-100.0) fL Carbon Dioxide 34 H (22-30) mmol/L BUN 21 H (7-17) mg/dL Urine Protein Trace H (Negative) Ur Leukocyte Esterase Small H (Negative) Urine RBC 20 H (0-5) /hpf Urine Mucus Rare H (None) /hpf Microbiology - Last 24 Hours (Table) 09/24/22 15:53 Wound Culture - Preliminary Ankle - Right Thrombosis Risk Factor Assmnt - Choose All That Apply Each Factor Represents 1 point: Obesity (BMI >25) Each Risk Factor Represents 3 Points: Age 75 years or older Other congenital or acquired thrombophilia - If yes, enter type in comment: No Thrombosis Risk Factor Assessment Total Risk Factor Score: 4 Thrombosis Risk Factor Assessment Level: Moderate Risk Assessment and Plan Plan: Right lower extremity cellulitis with large ulcer, failed outpatient therapy with oral cephalexin Underlying history of hypertension Underlying history of hyperlipidemia Underlying history of depression with anxiety disorder Underlying history of morbid obesity At this time continue with IV antibiotic Zosyn Wound culture Consult infectious disease For DVT prophylaxis subcu Lovenox Recheck labs in a.m.
[2022-09-25] MEDS: PIPERACILLIN-TAZOBACTAM 3.375 GM in SODIUM CHLORIDE 0.9% 100 ML IVPB SCH (16:56)
[2022-09-25] MEDS: ENOXAPARIN 40 MG/0.4 ML SYRINGE SQ SCH (16:57)
[2022-09-25] MEDS ORDERED: CEPHALEXIN 250 MG CAP PO SCH (18:00)
[2022-09-25] MEDS: traZODone HCL 50 MG TAB PO SCH (20:49)
[2022-09-25] MEDS: ATORVASTATIN 10 MG TAB PO SCH (20:52)
--- NOTE | 2022-09-25 23:41 | P.CONS ---
History of Present Illness - Reason for Consult Consult date: 09/25/22 - History of Present Illness Patient is a 81-year-old female with a past medical history significant for right lower extremity venous stasis ulcer and cellulitis patient presenting to the ER yesterday afternoon for evaluation of increasing swelling and redness to the right lower extremity patient symptom has been getting worse for the last few days before presentation to the hospital has been complaining of increasing swelling and redness to the right lower extremity patient describing the pain to be more of a sharp in nature 6-7 out of 10 and no radiation did have diffuse swelling redness and some drainage no significant foul-smelling the patient denies high-grade fever on presentation to the hospital the patient was afebrile patient did have a normal white count kidney function has been normal liver enzymes are normal urine was mildly positive patient did have a local cultures obtained as well as blood culture she was empirically started on Zosyn infectious disease was consulted for further manage ment of antibiotic therapy patient did have x-ray of the right lower extremity did show soft tissue swelling marked irregularity along the lateral margin of the left lower extremity suggestive of ulceration no destructive changes to suggest osteomyelitis Past Medical History Past Medical History: GERD/Reflux, Hyperlipidemia, Hypertension, Osteoarthritis (OA), Skin Disorder Additional Past Medical History / Comment(s): chronic low back/cervical and bilateral shoulder pain, benign colon polyps/diverticular disease, bilateral lower extremity cellulitis but R leg much more often, UTIs, polynephritis, hiatal hernia many years ago. History of Any Multi-Drug Resistant Organisms: None Reported Past Surgical History: Appendectomy, Cholecystectomy, Joint Replacement, Tubal Ligation Additional Past Surgical History / Comment(s): Bilateral total knee arthrop lasties, pain clinic procedures, colonoscopies/benign polypectomies, bilateral cataract removals/lens implants, PICC line. Past Anesthesia/Blood Transfusion Reactions: No Reported Reaction Past Psychological History: No Psychological Hx Reported Additional Psychological History / Comment(s): Pt resides alone with her dog. She uses a cane to ambulate. She drives. Her son lives across from her. Smoking Status: Never smoker Past Alcohol Use History: Rare Past Drug Use History: None Reported - Past Family History Mother Family Medical History: Cancer Additional Family Medical History / Comment(s): BREAST CANCER. at 28 years old Father Family Medical History: Cancer Additional Family Medical History / Comment(s): LIVER CANCER/HEART PROBLEMS. Son(s) Family Medical History: Cancer Additional Family Medical History / Comment(s): MULTIPLE MYELOMA/bone cancer- PASSED 2015. Medications and Allergies Home Medications Medication Instructions Recorded Confirmed Type Furosemide [Lasix] 40 mg PO DAILY 01/18/17 09/24/22 History atenoloL 25 mg PO BID 01/18/17 09/24/22 History hydrALAZINE HCL 25 mg PO BID 01/18/17 09/24/22 History HYDROcodone/APAP 10-325MG [[place] 1 tab PO Q8HR PRN 02/21/17 09/24/22 History 10-325] Montelukast [Singulair] 10 mg PO DAILY 08/18/19 09/24/22 History Potassium Chloride [K-Tab ER] 10 meq PO DAILY 08/18/19 09/24/22 History Simvastatin [Zocor] 20 mg PO HS 08/18/19 09/24/22 History Cephalexin [Keflex] 500 mg PO Q6HR 09/24/22 09/24/22 History FLUoxetine HCL [PROzac] 10 mg PO DAILY 09/24/22 09/24/22 History traZODone HCL [Desyrel] 50 mg PO HS 09/24/22 09/24/22 History Allergies Allergy/AdvReac Type Severity Reaction Status Date / Time adhesive tape Allergy Unknown Rash/Hives Verified 09/24/22 17:43 Sulfa (Sulfonamide Allergy Rash/Hives Verified 09/24/22 17:43 Antibiotics) Physical Exam Vitals: Vital Signs Temp Pulse Resp BP Pulse Ox 09/25/22 12:32 97.5 F L 61 18 145/67 97 09/25/22 09:03 75 130/75 09/25/22 05:00 97.7 F 61 16 124/68 95 09/24/22 20:00 98 F 79 16 146/76 96 Intake and Output 09/25/22 09/25/22 09/25/22 06:59 14:59 22:59 Other: Voiding Method Toilet Toilet # Voids 1 Results CBC & Chem 7: 09/24/22 14:18 09/24/22 14:18 Labs: Abnormal Lab Results - Last 24 Hours (Table) 09/24/22 Range/Units 18:53 Urine Protein Trace H (Negative) Ur Leukocyte Esterase Small H (Negative) Urine RBC 20 H (0-5) /hpf Urine Mucus Rare H (None) /hpf Microbiology - Last 24 Hours (Table) 09/24/22 15:53 Gram Stain - Preliminary Ankle - Right Wound Culture - Preliminary Assessment and Plan Plan: 1patient with a chronic nonhealing wound to the right lower extremity likely a venous stasis ulcer now with evidence of secondary cellulitis likely from gram- positive skin janie gram-negative infection not entirely excluded. 2sulfa allergy therapy limit the number of antibiotics safe to use. 3local wound care with the [facility] followed by moist dressing change daily. 4continue with the Zosyn while waiting for the culture to finalize we will follow on clinical condition and cultures to further adjust medication if needed Thank you for this consultation will follow this patient along with you Time with Patient: Greater than 30
[2022-09-26] MEDS: HYDROcodone/APAP 5-325MG 1 EACH TAB PO PRN ×5 (01:35→21:06)
[2022-09-26] MEDS: PIPERACILLIN-TAZOBACTAM 3.375 GM in SODIUM CHLORIDE 0.9% 100 ML IVPB SCH ×4 (01:36→23:00)
[2022-09-26] MEDS: hydrALAZINE HCL 25 MG TAB PO SCH ×2 (08:14→21:06)
[2022-09-26] MEDS: ENOXAPARIN 40 MG/0.4 ML SYRINGE SQ SCH (08:14)
[2022-09-26] MEDS: MONTELUKAST 10 MG TAB PO SCH (08:14)
[2022-09-26] MEDS: FLUoxetine HCL 10 MG CAP PO SCH (08:14)
[2022-09-26] MEDS: atenoloL 25 MG TAB PO SCH ×2 (08:14→21:06)
[2022-09-26] MEDS: FUROSEMIDE 40 MG TAB PO SCH (08:14)
[2022-09-26] MEDS: POTASSIUM CHLORIDE ER 10 MEQ TAB.ER.PRT PO SCH (08:15)
[2022-09-26] MEDS: SODIUM CHLORIDE 0.9% 1,000 ML IV SCH ×2 (08:15→21:07)
[2022-09-26 09:29] LABS: Basophils # (A) 0.03 X 10*3/uL (0.00-0.10); Basophils % (A) 0.5 %; Eosinophils # (A) 0.35 X 10*3/uL (0.04-0.35); HCT 34.3 % (37.2-46.3); HGB 10.5 g/dL (12.0-15.0); Immature Grans, Automated 0.7 %; Lymphocytes # (A) 0.99 X 10*3/uL (0.90-5.00); Lymphocytes % (A) 16.9 %; MCHC 30.6 g/dL (32.0-37.0); MCV 104.6 fL (80.0-97.0); Monocytes # (A) 0.83 X 10*3/uL (0.20-1.00); Monocytes % (A) 14.2 %; NRBC Per 100 WBC 0 /100 WBCS (0.0-0.0); Neutrophils # (A) 3.61 X 10*3/uL (1.80-7.70); Neutrophils % (A) 61.7 %; Platelet Count 234 X 10*3/uL (140-440); RBC 3.28 X 10*6/uL (4.10-5.20); RDW 13.2 % (11.5-14.5); WBC 5.85 X 10*3/uL (4.50-10.00)
[2022-09-26 09:40] LABS: Albumin 3.2 g/dL (3.8-4.9); Albumin/Globulin Ratio 1.45 (1.60-3.17); Anion Gap 7.8 mmol/L (10.00-18.00); BUN/Creat Ratio 17.33 Ratio (12.00-20.00); Blood Urea Nitrogen 15.6 mg/dL (9.0-27.0); Carbon Dioxide 30.2 mmol/L (20.0-27.5); Globulin 2.2 g/dL (1.6-3.3); Non-African American GFR(CKD) 59.5 (60.0-200.0); Potassium 4.5 mmol/L (3.5-5.5); Total Bilirubin 0.3 mg/dL (0.30-1.20); Total Protein 5.4 g/dL (6.2-8.2)
--- NOTE | 2022-09-26 14:02 | P.PN ---
Subjective Progress Note Date: 09/26/22 Dania Vergara, is a year old male who presented to [facility] emergency room with a chief complaint of right lower extremity cellulitis with large ulcer, patient had difficulty with bilateral lower extremity cellulitis on and off over the years she was seen repeatedly at the wound care clinic and was treated for infections and open ulcers. Recently she presented to the office with significant infection in the right lower extremity and large ulcer on the lateral side above the right ankle she was treated with oral antibiotic cephalexin but did not have significant improvement, she presented to emergency room, and was subsequently admitted to medical floor she was started on IV a ntibiotics Zosyn, infectious disease and vascular surgery consultation were requested. She was evaluated in the emergency room vital examination on presentation revealed a temperature of 98.7 pulse 96 respirations 16 blood pressure 137/69 pulse ox 94% on room air Laboratory data revealed a white blood count of 8.2 hemoglobin 12.0 platelet count 249 sodium 144 potassium 4.3 chloride 105 CO2 34 BUN 21 creatinine 0.94 Testing in the emergency room revealed right ankle x-ray revealed evidence of cellulitis with ulcer but no evidence of osteomyelitis Patient was admitted to medical floor for further evaluation and treatment on 09/26/2022 patient was seen and examined on the medical floor she is alert and oriented 3 in no apparent distress she is complaining of pain in her right lower extremity otherwise she denies any complaints there is no fever or chills no headache or dizziness, no chest pain no shortness of breath no cough no nausea or vomiting no abdominal pain no diarrhea and no urinary symptoms. At this time except is maintained on IV antibiotics she is followed by infectious disease will continue to follow closely Objective - Vital Signs Vital signs: Vital Signs Temp 97.8 F 09/26/22 05:00 Pulse 71 09/26/22 08:13 Resp 18 09/26/22 05:00 BP 134/52 09/26/22 08:13 Pulse Ox 97 09/26/22 05:00 FiO2 Intake & Output 09/25/22 09/26/22 09/26/22 18:59 06:59 18:59 Intake Total 900 500 Balance 900 500 Intake: Intake, IV Titration 900 Amount Sodium Chloride 0.9% 1, 900 000 ml @ 75 mls/hr IV . [id number] [facility] Rx#:[id number] Oral 500 Other: Voiding Method Toilet Toilet Toilet # Voids 3 - Exam In general patient is alert and oriented x 3 in no distress HEENT head normocephalic and atraumatic Neck is supple no JVD no goiter no lymphadenopathy no carotid bruit Chest examination is clear to auscultation no crackles no wheezing Cardiac exam reveals regular heart sounds S1 and S2 no gallops no murmurs Abdomen is soft nontender no organomegaly with normal bowel sounds Extremity exam reveals no edema no cyanosis or clubbing, there is severe erythema involving the right lower extremity with large ulcer on the lateral side above the ankle Neurological examination reveals no gross focal deficits - Labs CBC & Chem 7: 09/26/22 05:34 09/26/22 05:34 Labs: Abnormal Lab Results - Last 24 Hours (Table) 09/26/22 09/26/22 Range/Units 05:34 05:34 RBC 3.28 L (4.10-5.20) X 10*6/uL Hgb 10.5 L (12.0-15.0) g/dL Hct 34.3 L (37.2-46.3) % MCV 104.6 H (80.0-97.0) fL MCHC 30.6 L (32.0-37.0) g/dL Carbon Dioxide 30.2 H (20.0-27.5) mmol/L Anion Gap 7.80 L (10.00-18.00) mmol/L Est GFR (CKD-EPI)NonAf 59.5 L (60.0-200.0) Total Protein 5.4 L (6.2-8.2) g/dL Albumin 3.2 L (3.8-4.9) g/dL Albumin/Globulin Ratio 1.45 L (1.60-3.17) g/dL Microbiology - Last 24 Hours (Table) 09/24/22 14:30 Blood Culture - Preliminary Blood No Growth after 24 hours 09/24/22 14:18 Blood Culture - Preliminary Blood No Growth after 24 hours 09/24/22 15:53 Gram Stain - Preliminary Ankle - Right Wound Culture - Preliminary Assessment and Plan Plan: Right lower extremity cellulitis with large ulcer, failed outpatient therapy with oral cephalexin Underlying history of hypertension Underlying history of hyperlipidemia Underlying history of depression with anxiety disorder Underlying history of morbid obesity At this time continue with IV antibiotic Zosyn Wound culture Consult infectious disease For DVT prophylaxis subcu Lovenox Recheck labs in a.m.
[2022-09-26] MEDS: PETROLAT,WHITE/LAN/8-HYDROXYQU 227 GM OINT TOPICAL SCH ×2 (16:21→21:07)
--- NOTE | 2022-09-26 16:26 | P.PN ---
Subjective Progress Note Date: 09/26/22 Principal diagnosis: Right lower extremity wound and cellulitis Patient is a 81-year-old female with a past medical history significant for right lower extremity venous stasis ulcer and cellulitis patient presenting to the ER yesterday afternoon for evaluation of increasing swelling and redness to the right lower extremity patient symptom has been getting worse for the last few days before presentation to the hospital, patient was diagnosed with right lower extremity cellulitis and admitted to the hospital. On today's evaluation that is 09/26/2022, the patient denies having any fever or any chills, the patient is feeling better breathing comfortably on room air, no chest pain shortness of breath or cough, right lower extremity pain and swelling has slightly decreased Objective - Vital Signs Vital signs: Vital Signs Temp 98.8 F 09/26/22 11:26 Pulse 62 09/26/22 11:26 Resp 18 09/26/22 11:26 BP 110/64 09/26/22 11:26 Pulse Ox 97 09/26/22 11:26 FiO2 Intake & Output 09/25/22 09/26/22 09/26/22 18:59 06:59 18:59 Intake Total 900 500 Balance 900 500 Intake: Intake, IV Titration 900 Amount Sodium Chloride 0.9% 1, 900 000 ml @ 75 mls/hr IV . [id number] [facility] Rx#:[id number] Oral 500 Other: Voiding Method Toilet Toilet Toilet # Voids 3 2 - Exam GENERAL DESCRIPTION: An elderly female lying in bed in no distress RESPIRATORY SYSTEM: Unlabored breathing , decreased breath sounds at bases HEART: S1 S2 regular rate and rhythm , ABDOMEN: Soft , no tenderness EXTREMITIES: Right lower extremity swelling redness slightly decreased - Labs CBC & Chem 7: 09/26/22 05:34 09/26/22 05:34 Labs: Abnormal Lab Results - Last 24 Hours (Table) 09/26/22 09/26/22 Range/Units 05:34 05:34 RBC 3.28 L (4.10-5.20) X 10*6/uL Hgb 10.5 L (12.0-15.0) g/dL Hct 34.3 L (37.2-46.3) % MCV 104.6 H (80.0-97.0) fL MCHC 30.6 L (32.0-37.0) g/dL Carbon Dioxide 30.2 H (20.0-27.5) mmol/L Anion Gap 7.80 L (10.00-18.00) mmol/L Est GFR (CKD-EPI)NonAf 59.5 L (60.0-200.0) Total Protein 5.4 L (6.2-8.2) g/dL Albumin 3.2 L (3.8-4.9) g/dL Albumin/Globulin Ratio 1.45 L (1.60-3.17) g/dL Microbiology - Last 24 Hours (Table) 09/24/22 14:30 Blood Culture - Preliminary Blood No Growth after 24 hours 09/24/22 14:18 Blood Culture - Preliminary Blood No Growth after 24 hours 09/24/22 15:53 Gram Stain - Preliminary Ankle - Right Wound Culture - Preliminary Assessment and Plan (1) Cellulitis of right leg Current Visit: No Status: Acute Code(s): L03.115 - CELLULITIS OF RIGHT LOWER LIMB SNOMED Code(s): 134413127 Plan: 1patient with a chronic nonhealing wound to the right lower extremity likely a venous stasis ulcer now with evidence of secondary cellulitis likely from gram- positive skin janie gram-negative infection not entirely excluded. 2sulfa allergy therapy limit the number of antibiotics safe to use. 3local wound care with the Medihoney followed by moist dressing change daily. 4patient had shown some clinical improvement and will continue with the Zosyn while waiting for the culture to finalize Time with Patient: Less than 30
[2022-09-26] MEDS: traZODone HCL 50 MG TAB PO SCH (21:06)
[2022-09-26] MEDS: ATORVASTATIN 10 MG TAB PO SCH (21:06)
[2022-09-27] MEDS: HYDROcodone/APAP 5-325MG 1 EACH TAB PO PRN ×5 (04:51→21:53)
[2022-09-27] MEDS: hydrALAZINE HCL 25 MG TAB PO SCH ×2 (09:05→20:39)
[2022-09-27] MEDS: POTASSIUM CHLORIDE ER 10 MEQ TAB.ER.PRT PO SCH (09:05)
[2022-09-27] MEDS: MONTELUKAST 10 MG TAB PO SCH (09:05)
[2022-09-27] MEDS: atenoloL 25 MG TAB PO SCH ×2 (09:06→20:39)
[2022-09-27] MEDS: FLUoxetine HCL 10 MG CAP PO SCH (09:06)
[2022-09-27] MEDS: ENOXAPARIN 40 MG/0.4 ML SYRINGE SQ SCH (09:06)
[2022-09-27] MEDS: PIPERACILLIN-TAZOBACTAM 3.375 GM in SODIUM CHLORIDE 0.9% 100 ML IVPB SCH ×2 (09:06→17:29)
[2022-09-27] MEDS: FUROSEMIDE 40 MG TAB PO SCH (09:06)
[2022-09-27] MEDS: PETROLAT,WHITE/LAN/8-HYDROXYQU 227 GM OINT TOPICAL SCH ×3 (09:07→20:40)
[2022-09-27 10:45] LABS: Basophils # (A) 0.02 X 10*3/uL (0.00-0.10); Basophils % (A) 0.3 %; Eosinophils # (A) 0.36 X 10*3/uL (0.04-0.35); Eosinophils % (A) 5.9 %; HCT 36.4 % (37.2-46.3); HGB 11.1 g/dL (12.0-15.0); Immature Grans, Automated 0.8 %; Lymphocytes # (A) 0.84 X 10*3/uL (0.90-5.00); Lymphocytes % (A) 13.7 %; MCHC 30.5 g/dL (32.0-37.0); MCV 104.9 fL (80.0-97.0); Mean Platelet Volume 10.3 fL (9.5-12.2); Monocytes # (A) 0.72 X 10*3/uL (0.20-1.00); Monocytes % (A) 11.8 %; NRBC Per 100 WBC 0 /100 WBCS (0.0-0.0); Neutrophils # (A) 4.13 X 10*3/uL (1.80-7.70); Neutrophils % (A) 67.5 %; Platelet Count 260 X 10*3/uL (140-440); RBC 3.47 X 10*6/uL (4.10-5.20); RDW 13.1 % (11.5-14.5); WBC 6.12 X 10*3/uL (4.50-10.00)
[2022-09-27 10:54] LABS: African American GFR (CKD) 60.8 (60.0-200.0); Albumin 3.5 g/dL (3.8-4.9); Albumin/Globulin Ratio 1.4 (1.60-3.17); BUN/Creat Ratio 14.9 Ratio (12.00-20.00); Blood Urea Nitrogen 14.9 mg/dL (9.0-27.0); Calcium 8.8 mg/dL (8.7-10.3); Globulin 2.5 g/dL (1.6-3.3); Non-African American GFR(CKD) 52.4 (60.0-200.0); Potassium 4.5 mmol/L (3.5-5.5); Total Bilirubin 0.3 mg/dL (0.30-1.20)
--- NOTE | 2022-09-27 11:17 | P.PN ---
Subjective Progress Note Date: 09/27/22 Principal diagnosis: Cellulitis, chronic wounds to right lower extremity Patient was seen and examined today as a follow-up. She remains on IV antibiotics. Infectious disease is following. They have ordered medical need to the right lower extremity wounds. She denies any fevers or chills. No significant pain. She has been afebrile. Objective - Vital Signs Vital signs: Vital Signs Temp 97.8 F 09/27/22 05:00 Pulse 62 09/27/22 05:00 Resp 16 09/27/22 05:00 BP 137/76 09/27/22 05:00 Pulse Ox 93 L 09/27/22 05:00 FiO2 Intake & Output 09/26/22 09/27/22 09/27/22 18:59 06:59 18:59 Intake Total 900 Balance 900 Intake: Intake, IV Titration 900 Amount Sodium Chloride 0.9% 1, 900 000 ml @ 75 mls/hr IV . [id number] [facility] Rx#:[id number] Other: Voiding Method Toilet # Voids 1 2 - Exam This is a pleasant elderly female in no acute distress. HEENT is normocephalic, atraumatic. Extremity show no clubbing or cyanosis. There is moderate bilateral lower extremity edema she has palpable pedal pulses bilaterally. The right lower extremity a significant erythema and serous drainage. Dressing is in place. - Labs CBC & Chem 7: 09/27/22 06:39 09/27/22 06:39 Labs: Abnormal Lab Results - Last 24 Hours (Table) 09/26/22 09/26/22 Range/Units 05:34 05:34 RBC 3.28 L (4.10-5.20) X 10*6/uL Hgb 10.5 L (12.0-15.0) g/dL Hct 34.3 L (37.2-46.3) % MCV 104.6 H (80.0-97.0) fL MCHC 30.6 L (32.0-37.0) g/dL Carbon Dioxide 30.2 H (20.0-27.5) mmol/L Anion Gap 7.80 L (10.00-18.00) mmol/L Est GFR (CKD-EPI)NonAf 59.5 L (60.0-200.0) Total Protein 5.4 L (6.2-8.2) g/dL Albumin 3.2 L (3.8-4.9) g/dL Albumin/Globulin Ratio 1.45 L (1.60-3.17) g/dL Microbiology - Last 24 Hours (Table) 09/24/22 14:30 Blood Culture - Preliminary Blood No Growth after 48 hours 09/24/22 14:18 Blood Culture - Preliminary Blood No Growth after 48 hours Assessment and Plan Assessment: 1. Right lower extremity cellulitis 2. Right lower extremity wound 3. Likely venous insufficiency with wounds 4. Right lower extremity edema Plan: 1. Continue antibiotics per recommendations from infectious disease 2. Continue with local wound care as ordered 3. No plans on surgical intervention at this time. 4. Recommend outpatient follow-up, evaluation and workup for venous reflux Thank you for this consultation. The impression and plan of care has been dictated as directed. Dr. Singh I performed a history and examination of this patient, discussed the same with the dictator. I agree with the dictator's note ,documented as a scribe. Any additional findings or plans will be noted.
[2022-09-27] MEDS ORDERED: diphenhydrAMINE 25 MG CAP PO PRN (12:51)
--- NOTE | 2022-09-27 12:55 | P.PN ---
Subjective Progress Note Date: 09/27/22 Dania Vergara, is a year old male who presented to [facility] emergency room with a chief complaint of right lower extremity cellulitis with large ulcer, patient had difficulty with bilateral lower extremity cellulitis on and off over the years she was seen repeatedly at the wound care clinic and was treated for infections and open ulcers. Recently she presented to the office with significant infection in the right lower extremity and large ulcer on the lateral side above the right ankle she was treated with oral antibiotic cephalexin but did not have significant improvement, she presented to emergency room, and was subsequently admitted to medical floor she was started on IV a ntibiotics Zosyn, infectious disease and vascular surgery consultation were requested. She was evaluated in the emergency room vital examination on presentation revealed a temperature of 98.7 pulse 96 respirations 16 blood pressure 137/69 pulse ox 94% on room air Laboratory data revealed a white blood count of 8.2 hemoglobin 12.0 platelet count 249 sodium 144 potassium 4.3 chloride 105 CO2 34 BUN 21 creatinine 0.94 Testing in the emergency room revealed right ankle x-ray revealed evidence of cellulitis with ulcer but no evidence of osteomyelitis Patient was admitted to medical floor for further evaluation and treatment On 09/26/2022 patient was seen and examined on the medical floor she is alert and oriented 3 in no apparent distress she is complaining of pain in her right lower extremity otherwise she denies any complaints there is no fever or chills no headache or dizziness, no chest pain no shortness of breath no cough no nausea or vomiting no abdominal pain no diarrhea and no urinary symptoms. At this time except is maintained on IV antibiotics she is followed by infectious d solange will continue to follow closely On 09/27/2022 patient was seen and examined on the medical floor she is alert and oriented 3 in no apparent distress she is complaining of pain in her right lower extremity otherwise she denies any complaints there is no fever or chills no headache or dizziness, no chest pain no shortness of breath no cough no nausea or vomiting no abdominal pain no diarrhea and no urinary symptoms. At this time except is maintained on IV antibiotics she is followed by infectious disease will continue to follow closely. Today patient developed erythematous rash on the abdomen with itching, at this time will discontinue subcu Lovenox, add Benadryl 25 mg 3 times daily as needed, encourage patient to ambulate every 1-2 hours during the day, consult physical therapy and occupational therapy. At this time we are still awaiting for wound culture results. Objective - Vital Signs Vital signs: Vital Signs Temp 97.8 F 09/27/22 05:00 Pulse 62 09/27/22 05:00 Resp 16 09/27/22 05:00 BP 137/76 09/27/22 05:00 Pulse Ox 93 L 09/27/22 05:00 FiO2 Intake & Output 09/26/22 09/27/22 09/27/22 18:59 06:59 18:59 Intake Total 900 Balance 900 Intake: Intake, IV Titration 900 Amount Sodium Chloride 0.9% 1, 900 000 ml @ 75 mls/hr IV . [id number] [facility] Rx#:[id number] Other: Voiding Method Toilet Toilet # Voids 1 2 - Exam In general patient is alert and oriented x 3 in no distress HEENT head normocephalic and atraumatic Neck is supple no JVD no goiter no lymphadenopathy no carotid bruit Chest examination is clear to auscultation no crackles no wheezing Cardiac exam reveals regular heart sounds S1 and S2 no gallops no murmurs Abdomen is soft nontender no organomegaly with normal bowel sounds Extremity exam reveals no edema no cyanosis or clubbing, there is severe erythema involving the right lower extremity with large ulcer on the lateral side above the ankle Neurological examination reveals no gross focal deficits - Labs CBC & Chem 7: 09/27/22 06:39 09/27/22 06:39 Labs: Microbiology - Last 24 Hours (Table) 09/24/22 14:30 Blood Culture - Preliminary Blood No Growth after 48 hours 09/24/22 14:18 Blood Culture - Preliminary Blood No Growth after 48 hours Assessment and Plan Plan: Right lower extremity cellulitis with large ulcer, failed outpatient therapy with oral cephalexin Underlying history of hypertension Underlying history of hyperlipidemia Underlying history of depression with anxiety disorder Underlying history of morbid obesity At this time continue with IV antibiotic Zosyn Wound culture Consult infectious disease For DVT prophylaxis subcu Lovenox Recheck labs in a.m.
[2022-09-27] MEDS: SODIUM CHLORIDE 0.9% 1,000 ML IV SCH (17:33)
[2022-09-27] MEDS: traZODone HCL 50 MG TAB PO SCH (20:39)
[2022-09-27] MEDS: ATORVASTATIN 10 MG TAB PO SCH (20:39)
[2022-09-28] MEDS: PIPERACILLIN-TAZOBACTAM 3.375 GM in SODIUM CHLORIDE 0.9% 100 ML IVPB SCH ×3 (00:48→17:16)
[2022-09-28] MEDS: SODIUM CHLORIDE 0.9% 1,000 ML IV SCH ×2 (00:55→05:31)
[2022-09-28] MEDS: HYDROcodone/APAP 5-325MG 1 EACH TAB PO PRN ×4 (05:31→20:47)
[2022-09-28 09:12] LABS: Basophils # (A) 0.02 X 10*3/uL (0.00-0.10); Basophils % (A) 0.3 %; Eosinophils # (A) 0.47 X 10*3/uL (0.04-0.35); Eosinophils % (A) 6.1 %; HCT 35.9 % (37.2-46.3); HGB 11.3 g/dL (12.0-15.0); Immature Grans, Automated 0.6 %; Lymphocytes # (A) 0.94 X 10*3/uL (0.90-5.00); Lymphocytes % (A) 12.2 %; MCH 32.6 pg (27.0-32.0); MCHC 31.5 g/dL (32.0-37.0); MCV 103.5 fL (80.0-97.0); Mean Platelet Volume 10.8 fL (9.5-12.2); Monocytes % (A) 12.9 %; NRBC Per 100 WBC 0 /100 WBCS (0.0-0.0); Neutrophils # (A) 5.25 X 10*3/uL (1.80-7.70); Neutrophils % (A) 67.9 %; Platelet Count 260 X 10*3/uL (140-440); RBC 3.47 X 10*6/uL (4.10-5.20); RDW 13.2 % (11.5-14.5); WBC 7.73 X 10*3/uL (4.50-10.00)
[2022-09-28 09:19] LABS: African American GFR (CKD) 68.5 (60.0-200.0); Albumin 3.4 g/dL (3.8-4.9); Albumin/Globulin Ratio 1.42 (1.60-3.17); Anion Gap 9.6 mmol/L (10.00-18.00); Blood Urea Nitrogen 14.4 mg/dL (9.0-27.0); Calcium 8.8 mg/dL (8.7-10.3); Carbon Dioxide 28.4 mmol/L (20.0-27.5); Globulin 2.4 g/dL (1.6-3.3); Non-African American GFR(CKD) 59.1 (60.0-200.0); Potassium 4.5 mmol/L (3.5-5.5); Total Bilirubin 0.3 mg/dL (0.30-1.20); Total Protein 5.8 g/dL (6.2-8.2)
[2022-09-28] MEDS: atenoloL 25 MG TAB PO SCH ×2 (09:43→20:47)
[2022-09-28] MEDS: FUROSEMIDE 40 MG TAB PO SCH (09:43)
[2022-09-28] MEDS: MONTELUKAST 10 MG TAB PO SCH (09:44)
[2022-09-28] MEDS: hydrALAZINE HCL 25 MG TAB PO SCH ×2 (09:44→20:47)
[2022-09-28] MEDS: POTASSIUM CHLORIDE ER 10 MEQ TAB.ER.PRT PO SCH (11:28)
[2022-09-28] MEDS: FLUoxetine HCL 10 MG CAP PO SCH (11:28)
[2022-09-28] MEDS: PETROLAT,WHITE/LAN/8-HYDROXYQU 227 GM OINT TOPICAL SCH ×3 (11:30→20:47)
--- NOTE | 2022-09-28 17:07 | P.PN ---
Subjective Progress Note Date: 09/28/22 Dania Vergara, is a year old male who presented to [facility] emergency room with a chief complaint of right lower extremity cellulitis with large ulcer, patient had difficulty with bilateral lower extremity cellulitis on and off over the years she was seen repeatedly at the wound care clinic and was treated for infections and open ulcers. Recently she presented to the office with significant infection in the right lower extremity and large ulcer on the lateral side above the right ankle she was treated with oral antibiotic cephalexin but did not have significant improvement, she presented to emergency room, and was subsequently admitted to medical floor she was started on IV a ntibiotics Zosyn, infectious disease and vascular surgery consultation were requested. She was evaluated in the emergency room vital examination on presentation revealed a temperature of 98.7 pulse 96 respirations 16 blood pressure 137/69 pulse ox 94% on room air Laboratory data revealed a white blood count of 8.2 hemoglobin 12.0 platelet count 249 sodium 144 potassium 4.3 chloride 105 CO2 34 BUN 21 creatinine 0.94 Testing in the emergency room revealed right ankle x-ray revealed evidence of cellulitis with ulcer but no evidence of osteomyelitis Patient was admitted to medical floor for further evaluation and treatment On 09/26/2022 patient was seen and examined on the medical floor she is alert and oriented 3 in no apparent distress she is complaining of pain in her right lower extremity otherwise she denies any complaints there is no fever or chills no headache or dizziness, no chest pain no shortness of breath no cough no nausea or vomiting no abdominal pain no diarrhea and no urinary symptoms. At this time except is maintained on IV antibiotics she is followed by infectious d solange will continue to follow closely On 09/27/2022 patient was seen and examined on the medical floor she is alert and oriented 3 in no apparent distress she is complaining of pain in her right lower extremity otherwise she denies any complaints there is no fever or chills no headache or dizziness, no chest pain no shortness of breath no cough no nausea or vomiting no abdominal pain no diarrhea and no urinary symptoms. At this time except is maintained on IV antibiotics she is followed by infectious disease will continue to follow closely. Today patient developed erythematous rash on the abdomen with itching, at this time will discontinue subcu Lovenox, add Benadryl 25 mg 3 times daily as needed, encourage patient to ambulate every 1-2 hours during the day, consult physical therapy and occupational therapy. At this time we are still awaiting for wound culture results. On 09/28/2022 patient was seen and examined on the medical floor, he is alert and oriented x 3 in no distress there is no fever or chills no headache or dizziness no chest pain no shortness of breath no cough no nausea or vomiting no abdominal pain no diarrhea and no urinary symptoms patient has a large wound on her right lower extremity with excessive serous drainage requiring multiple change of dressing daily, she is still maintained on IV antibiotic Objective - Vital Signs Vital signs: Vital Signs Temp 97.6 F 09/28/22 05:09 Pulse 61 09/28/22 05:09 Resp 16 09/28/22 05:09 BP 107/62 09/28/22 05:09 Pulse Ox 94 L 09/28/22 05:09 FiO2 Intake & Output 09/27/22 09/28/22 09/28/22 18:59 06:59 18:59 Intake Total 1000 Balance 1000 Intake: Intake, IV Titration 1000 Amount Piperacillin-Tazobactam 3 100 .375 gm In Sodium Chloride 0.9% 100 ml @ 25 mls/hr IVPB Q8HR [facility] Rx# :[id number] Sodium Chloride 0.9% 1, 900 000 ml @ 75 mls/hr IV . [id number] [facility] Rx#:[id number] Other: Voiding Method Toilet # Voids 5 2 - Exam In general patient is alert and oriented x 3 in no distress HEENT head normocephalic and atraumatic Neck is supple no JVD no goiter no lymphadenopathy no carotid bruit Chest examination is clear to auscultation no crackles no wheezing Cardiac exam reveals regular heart sounds S1 and S2 no gallops no murmurs Abdomen is soft nontender no organomegaly with normal bowel sounds Extremity exam reveals no edema no cyanosis or clubbing, there is severe erythema involving the right lower extremity with large ulcer on the lateral side above the ankle Neurological examination reveals no gross focal deficits - Labs CBC & Chem 7: 09/28/22 05:38 09/28/22 05:38 Labs: Abnormal Lab Results - Last 24 Hours (Table) 09/27/22 09/27/22 Range/Units 06:39 06:39 RBC 3.47 L (4.10-5.20) X 10*6/uL Hgb 11.1 L (12.0-15.0) g/dL Hct 36.4 L (37.2-46.3) % MCV 104.9 H (80.0-97.0) fL MCHC 30.5 L (32.0-37.0) g/dL Immature Gran # 0.05 H (0.00-0.04) X 10*3/uL Lymphocytes # 0.84 L (0.90-5.00) X 10*3/uL Eosinophils # 0.36 H (0.04-0.35) X 10*3/uL Carbon Dioxide 29.0 H (20.0-27.5) mmol/L Est GFR (CKD-EPI)NonAf 52.4 L (60.0-200.0) Total Protein 6.0 L (6.2-8.2) g/dL Albumin 3.5 L (3.8-4.9) g/dL Albumin/Globulin Ratio 1.40 L (1.60-3.17) g/dL Microbiology - Last 24 Hours (Table) 09/24/22 14:30 Blood Culture - Preliminary Blood No Growth after 72 hours 09/24/22 15:53 Gram Stain - Final Ankle - Right Wound Culture - Final 09/24/22 14:18 Blood Culture - Preliminary Blood No Growth after 72 hours Assessment and Plan Plan: Right lower extremity cellulitis with large ulcer, failed outpatient therapy with oral cephalexin Underlying history of hypertension Underlying history of hyperlipidemia Underlying history of depression with anxiety disorder Underlying history of morbid obesity At this time continue with IV antibiotic Zosyn Wound culture Consult infectious disease For DVT prophylaxis subcu Lovenox Recheck labs in a.m.
[2022-09-28] MEDS: traZODone HCL 50 MG TAB PO SCH (20:47)
[2022-09-28] MEDS: ATORVASTATIN 10 MG TAB PO SCH (20:47)
[2022-09-29] MEDS: HYDROcodone/APAP 5-325MG 1 EACH TAB PO PRN ×4 (01:42→20:36)
[2022-09-29] MEDS: SODIUM CHLORIDE 0.9% 1,000 ML IV SCH ×2 (04:06→17:46)
--- NOTE | 2022-09-29 07:20 | P.PN ---
Subjective Progress Note Date: 09/27/22 Principal diagnosis: Right lower extremity wound and cellulitis Patient is a 81-year-old female with a past medical history significant for right lower extremity venous stasis ulcer and cellulitis patient presenting to the ER yesterday afternoon for evaluation of increasing swelling and redness to the right lower extremity patient symptom has been getting worse for the last few days before presentation to the hospital, patient was diagnosed with right lower extremity cellulitis and admitted to the hospital. On today's evaluation that is 09/27/2022, the patient remains to be afebrile, the patient is feeling better, the patient is breathing comfortably on room air, patient denies chest pain shortness of breath or cough, right lower extremity pain and swelling has slightly decreased Objective - Vital Signs Vital signs: Vital Signs Temp 97.8 F 09/27/22 05:00 Pulse 62 09/27/22 05:00 Resp 16 09/27/22 05:00 BP 137/76 09/27/22 05:00 Pulse Ox 93 L 09/27/22 05:00 FiO2 Intake & Output 09/26/22 09/27/22 09/27/22 18:59 06:59 18:59 Intake Total 900 Balance 900 Intake: Intake, IV Titration 900 Amount Sodium Chloride 0.9% 1, 900 000 ml @ 75 mls/hr IV . [id number] [facility] Rx#:[id number] Other: Voiding Method Toilet Toilet # Voids 1 2 - Exam GENERAL DESCRIPTION: An elderly female lying in bed in no distress RESPIRATORY SYSTEM: Unlabored breathing , decreased breath sounds at bases HEART: S1 S2 regular rate and rhythm , ABDOMEN: Soft , no tenderness EXTREMITIES: Right lower extremity swelling redness slightly decreased - Labs CBC & Chem 7: 09/28/22 05:38 09/28/22 05:38 Labs: Abnormal Lab Results - Last 24 Hours (Table) 09/27/22 09/27/22 Range/Units 06:39 06:39 RBC 3.47 L (4.10-5.20) X 10*6/uL Hgb 11.1 L (12.0-15.0) g/dL Hct 36.4 L (37.2-46.3) % MCV 104.9 H (80.0-97.0) fL MCHC 30.5 L (32.0-37.0) g/dL Immature Gran # 0.05 H (0.00-0.04) X 10*3/uL Lymphocytes # 0.84 L (0.90-5.00) X 10*3/uL Eosinophils # 0.36 H (0.04-0.35) X 10*3/uL Carbon Dioxide 29.0 H (20.0-27.5) mmol/L Est GFR (CKD-EPI)NonAf 52.4 L (60.0-200.0) Total Protein 6.0 L (6.2-8.2) g/dL Albumin 3.5 L (3.8-4.9) g/dL Albumin/Globulin Ratio 1.40 L (1.60-3.17) g/dL Microbiology - Last 24 Hours (Table) 09/24/22 14:30 Blood Culture - Preliminary Blood No Growth after 48 hours 09/24/22 14:18 Blood Culture - Preliminary Blood No Growth after 48 hours Assessment and Plan (1) Cellulitis of right leg Current Visit: No Status: Acute Code(s): L03.115 - CELLULITIS OF RIGHT LOWER LIMB SNOMED Code(s): 487918826 Plan: 1patient with a chronic nonhealing wound to the right lower extremity likely a venous stasis ulcer now with evidence of secondary cellulitis likely from gram- positive skin janie gram-negative infection not entirely excluded. 2sulfa allergy therapy limit the number of antibiotics safe to use. 3local wound care with the Medihoney followed by moist dressing change daily. 4patient had shown minimal clinical improvement and will continue with the Zosyn while waiting for the culture to finalize to determine her discharge antibiotics Time with Patient: Less than 30
--- NOTE | 2022-09-29 07:21 | P.PN ---
Subjective Progress Note Date: 09/28/22 Principal diagnosis: Right lower extremity wound and cellulitis Patient is a 81-year-old female with a past medical history significant for right lower extremity venous stasis ulcer and cellulitis patient presenting to the ER yesterday afternoon for evaluation of increasing swelling and redness to the right lower extremity patient symptom has been getting worse for the last few days before presentation to the hospital, patient was diagnosed with right lower extremity cellulitis and admitted to the hospital. On today's evaluation that is 09/28/2022, the patient denies any fever or any chills, the patient is breathing comfortably on room air, patient denies chest pain shortness of breath or cough, the patient right lower extremity pain and swelling has slightly decreased Objective - Vital Signs Vital signs: Vital Signs Temp 97.8 F 09/28/22 12:47 Pulse 64 09/28/22 12:47 Resp 16 09/28/22 12:47 BP 103/54 09/28/22 12:47 Pulse Ox 94 L 09/28/22 12:47 FiO2 Intake & Output 09/27/22 09/28/22 09/28/22 18:59 06:59 18:59 Intake Total 1000 Balance 1000 Intake: Intake, IV Titration 1000 Amount Piperacillin-Tazobactam 3 100 .375 gm In Sodium Chloride 0.9% 100 ml @ 25 mls/hr IVPB Q8HR [facility] Rx# :[id number] Sodium Chloride 0.9% 1, 900 000 ml @ 75 mls/hr IV . [id number] [facility] Rx#:[id number] Other: Voiding Method Toilet Toilet # Voids 5 2 - Exam GENERAL DESCRIPTION: An elderly female lying in bed in no distress RESPIRATORY SYSTEM: Unlabored breathing , decreased breath sounds at bases HEART: S1 S2 regular rate and rhythm , ABDOMEN: Soft , no tenderness EXTREMITIES: Right lower extremity swelling redness slightly decreased - Labs CBC & Chem 7: 09/28/22 05:38 09/28/22 05:38 Labs: Abnormal Lab Results - Last 24 Hours (Table) 09/28/22 09/28/22 Range/Units 05:38 05:38 RBC 3.47 L (4.10-5.20) X 10*6/uL Hgb 11.3 L (12.0-15.0) g/dL Hct 35.9 L (37.2-46.3) % MCV 103.5 H (80.0-97.0) fL MCH 32.6 H (27.0-32.0) pg MCHC 31.5 L (32.0-37.0) g/dL Immature Gran # 0.05 H (0.00-0.04) X 10*3/uL Eosinophils # 0.47 H (0.04-0.35) X 10*3/uL Carbon Dioxide 28.4 H (20.0-27.5) mmol/L Anion Gap 9.60 L (10.00-18.00) mmol/L Est GFR (CKD-EPI)NonAf 59.1 L (60.0-200.0) Total Protein 5.8 L (6.2-8.2) g/dL Albumin 3.4 L (3.8-4.9) g/dL Albumin/Globulin Ratio 1.42 L (1.60-3.17) g/dL Microbiology - Last 24 Hours (Table) 09/24/22 15:53 Gram Stain - Final Ankle - Right Wound Culture - Final 09/24/22 14:30 Blood Culture - Preliminary Blood No Growth after 72 hours 09/24/22 14:18 Blood Culture - Preliminary Blood No Growth after 72 hours Assessment and Plan (1) Cellulitis of right leg Current Visit: No Status: Acute Code(s): L03.115 - CELLULITIS OF RIGHT LOWER LIMB SNOMED Code(s): 685840748 Plan: 1patient with a chronic nonhealing wound to the right lower extremity likely a venous stasis ulcer now with evidence of secondary cellulitis likely from gram- positive skin janie gram-negative infection not entirely excluded. 2sulfa allergy therapy limit the number of antibiotics safe to use. 3[facility] by moist dressing change daily. 4patient local culture has been negative for any resistant pathogen 5antibiotic will be switched over to cefazolin keeping in mind extensive infection we'll order midline for outpatient IV antibiotic on discharge Discussed with the admitting physician Time with Patient: Less than 30
[2022-09-29] MEDS: FUROSEMIDE 40 MG TAB PO SCH (08:03)
[2022-09-29] MEDS: MONTELUKAST 10 MG TAB PO SCH (08:03)
[2022-09-29] MEDS: hydrALAZINE HCL 25 MG TAB PO SCH ×2 (08:03→20:37)
[2022-09-29] MEDS: POTASSIUM CHLORIDE ER 10 MEQ TAB.ER.PRT PO SCH (08:03)
[2022-09-29] MEDS: FLUoxetine HCL 10 MG CAP PO SCH (08:03)
[2022-09-29] MEDS: atenoloL 25 MG TAB PO SCH ×2 (08:03→20:36)
[2022-09-29 08:16] VITALS: BMI 39.6
[2022-09-29 08:43] LABS: Basophils # (A) 0.03 X 10*3/uL (0.00-0.10); Basophils % (A) 0.4 %; Eosinophils # (A) 0.55 X 10*3/uL (0.04-0.35); Eosinophils % (A) 7.5 %; HCT 35.2 % (37.2-46.3); HGB 10.7 g/dL (12.0-15.0); Immature Grans, Automated 0.8 %; Lymphocytes # (A) 0.72 X 10*3/uL (0.90-5.00); Lymphocytes % (A) 9.9 %; MCH 32.2 pg (27.0-32.0); MCHC 30.4 g/dL (32.0-37.0); Mean Platelet Volume 10.4 fL (9.5-12.2); Monocytes # (A) 0.85 X 10*3/uL (0.20-1.00); Monocytes % (A) 11.7 %; NRBC Per 100 WBC 0 /100 WBCS (0.0-0.0); Neutrophils # (A) 5.08 X 10*3/uL (1.80-7.70); Neutrophils % (A) 69.7 %; Platelet Count 242 X 10*3/uL (140-440); RBC 3.32 X 10*6/uL (4.10-5.20); RDW 13.2 % (11.5-14.5); WBC 7.29 X 10*3/uL (4.50-10.00)
[2022-09-29 08:59] LABS: ALT 18 U/L (8-44); AST 23 U/L (13-35); African American GFR (CKD) 60.3 (60.0-200.0); Albumin 3.4 g/dL (3.8-4.9); Albumin/Globulin Ratio 1.48 (1.60-3.17); Alkaline Phosphatase 64 U/L (41-126); Blood Urea Nitrogen 14.5 mg/dL (9.0-27.0); Calcium 8.6 mg/dL (8.7-10.3); Carbon Dioxide 31.1 mmol/L (20.0-27.5); Chloride 101 mmol/L (96-109); Globulin 2.3 g/dL (1.6-3.3); Glucose 106 mg/dL (70-110); Non-African American GFR(CKD) 52.1 (60.0-200.0); Potassium 3.8 mmol/L (3.5-5.5); Sodium 141 mmol/L (135-145); Total Bilirubin <0.15 mg/dL (0.30-1.20); Total Protein 5.7 g/dL (6.2-8.2)
--- NOTE | 2022-09-29 10:11 | P.PN ---
Subjective Progress Note Date: 09/29/22 Dania Vergara, is a year old male who presented to [facility] emergency room with a chief complaint of right lower extremity cellulitis with large ulcer, patient had difficulty with bilateral lower extremity cellulitis on and off over the years she was seen repeatedly at the wound care clinic and was treated for infections and open ulcers. Recently she presented to the office with significant infection in the right lower extremity and large ulcer on the lateral side above the right ankle she was treated with oral antibiotic cephalexin but did not have significant improvement, she presented to emergency room, and was subsequently admitted to medical floor she was started on IV a ntibiotics Zosyn, infectious disease and vascular surgery consultation were requested. She was evaluated in the emergency room vital examination on presentation revealed a temperature of 98.7 pulse 96 respirations 16 blood pressure 137/69 pulse ox 94% on room air Laboratory data revealed a white blood count of 8.2 hemoglobin 12.0 platelet count 249 sodium 144 potassium 4.3 chloride 105 CO2 34 BUN 21 creatinine 0.94 Testing in the emergency room revealed right ankle x-ray revealed evidence of cellulitis with ulcer but no evidence of osteomyelitis Patient was admitted to medical floor for further evaluation and treatment On 09/26/2022 patient was seen and examined on the medical floor she is alert and oriented 3 in no apparent distress she is complaining of pain in her right lower extremity otherwise she denies any complaints there is no fever or chills no headache or dizziness, no chest pain no shortness of breath no cough no nausea or vomiting no abdominal pain no diarrhea and no urinary symptoms. At this time except is maintained on IV antibiotics she is followed by infectious d solange will continue to follow closely On 09/27/2022 patient was seen and examined on the medical floor she is alert and oriented 3 in no apparent distress she is complaining of pain in her right lower extremity otherwise she denies any complaints there is no fever or chills no headache or dizziness, no chest pain no shortness of breath no cough no nausea or vomiting no abdominal pain no diarrhea and no urinary symptoms. At this time except is maintained on IV antibiotics she is followed by infectious disease will continue to follow closely. Today patient developed erythematous rash on the abdomen with itching, at this time will discontinue subcu Lovenox, add Benadryl 25 mg 3 times daily as needed, encourage patient to ambulate every 1-2 hours during the day, consult physical therapy and occupational therapy. At this time we are still awaiting for wound culture results. On 09/28/2022 patient was seen and examined on the medical floor, he is alert and oriented x 3 in no distress there is no fever or chills no headache or dizziness no chest pain no shortness of breath no cough no nausea or vomiting no abdominal pain no diarrhea and no urinary symptoms patient has a large wound on her right lower extremity with excessive serous drainage requiring multiple change of dressing daily, she is still maintained on IV antibiotic On 09/29/2022 patient is alert and oriented 3. Awaiting midline placement today per infectious disease ordered. Patient requesting to be DC'd home [facility] due to inability to get ride later today after midline placement. Case management services consulted to arrange home health care. Patient denies chest pain or shortness breath. Patient denies nausea vomiting or diarrhea. Patient denies any urinary burning or frequency Objective - Vital Signs Vital signs: Vital Signs Temp 98 F 09/29/22 05:08 Pulse 72 09/29/22 07:56 Resp 16 09/29/22 05:08 BP 139/65 09/29/22 07:56 Pulse Ox 94 L 09/29/22 05:08 FiO2 Intake & Output 09/28/22 09/29/22 09/29/22 18:59 06:59 18:59 Weight 98.43 kg Other: Voiding Method Toilet Toilet # Voids 1 # Bowel Movements 1 - Exam In general patient is alert and oriented x 3 in no distress HEENT head normocephalic and atraumatic Neck is supple no JVD no goiter no lymphadenopathy no carotid bruit Chest examination is clear to auscultation no crackles no wheezing Cardiac exam reveals regular heart sounds S1 and S2 no gallops no murmurs Abdomen is soft nontender no organomegaly with normal bowel sounds Extremity exam reveals no edema no cyanosis or clubbing, there is severe erythema involving the right lower extremity with large ulcer on the lateral side above the ankle Neurological examination reveals no gross focal deficits - Labs CBC & Chem 7: 09/29/22 03:43 09/29/22 03:43 Labs: Abnormal Lab Results - Last 24 Hours (Table) 09/29/22 09/29/22 Range/Units 03:43 03:43 RBC 3.32 L (4.10-5.20) X 10*6/uL Hgb 10.7 L (12.0-15.0) g/dL Hct 35.2 L (37.2-46.3) % MCV 106.0 H (80.0-97.0) fL MCH 32.2 H (27.0-32.0) pg MCHC 30.4 L (32.0-37.0) g/dL Immature Gran # 0.06 H (0.00-0.04) X 10*3/uL Lymphocytes # 0.72 L (0.90-5.00) X 10*3/uL Eosinophils # 0.55 H (0.04-0.35) X 10*3/uL Carbon Dioxide 31.1 H (20.0-27.5) mmol/L Anion Gap 8.90 L (10.00-18.00) mmol/L Est GFR (CKD-EPI)NonAf 52.1 L (60.0-200.0) Calcium 8.6 L (8.7-10.3) mg/dL Total Bilirubin <0.15 L (0.30-1.20) mg/dL Total Protein 5.7 L (6.2-8.2) g/dL Albumin 3.4 L (3.8-4.9) g/dL Albumin/Globulin Ratio 1.48 L (1.60-3.17) g/dL Microbiology - Last 24 Hours (Table) 09/24/22 14:30 Blood Culture - Preliminary Blood No Growth after 96 hours 09/24/22 14:18 Blood Culture - Preliminary Blood No Growth after 96 hours 09/24/22 15:53 Gram Stain - Final Ankle - Right Wound Culture - Final Assessment and Plan Plan: Right lower extremity cellulitis with large ulcer, failed outpatient therapy with oral cephalexin Underlying history of hypertension Underlying history of hyperlipidemia Underlying history of depression with anxiety disorder Underlying history of morbid obesity At this time continue with IV antibiotic Zosyn Wound culture Consult infectious disease For DVT prophylaxis subcu Lovenox Recheck labs in a.m. Midline scheduled Patient will require home antibiotics case management ordered
[2022-09-29] MEDS: PETROLAT,WHITE/LAN/8-HYDROXYQU 227 GM OINT TOPICAL SCH ×3 (10:35→20:38)
[2022-09-29] MEDS: ATORVASTATIN 10 MG TAB PO SCH (20:36)
[2022-09-29] MEDS: traZODone HCL 50 MG TAB PO SCH (20:36)
[2022-09-30] MEDS: SODIUM CHLORIDE 0.9% 1,000 ML IV SCH (01:55)
[2022-09-30] MEDS: HYDROcodone/APAP 5-325MG 1 EACH TAB PO PRN ×2 (04:34→10:02)
[2022-09-30] MEDS: FUROSEMIDE 40 MG TAB PO SCH (08:18)
[2022-09-30] MEDS: MONTELUKAST 10 MG TAB PO SCH (08:18)
[2022-09-30] MEDS: POTASSIUM CHLORIDE ER 10 MEQ TAB.ER.PRT PO SCH (08:18)
[2022-09-30] MEDS: hydrALAZINE HCL 25 MG TAB PO SCH (08:18)
[2022-09-30] MEDS: PETROLAT,WHITE/LAN/8-HYDROXYQU 227 GM OINT TOPICAL SCH ×2 (08:18→16:57)
[2022-09-30] MEDS: FLUoxetine HCL 10 MG CAP PO SCH (08:18)
[2022-09-30] MEDS: atenoloL 25 MG TAB PO SCH (08:18)
[2022-09-30 11:00] LABS: African American GFR (CKD) 68.5 (60.0-200.0); Albumin 3.4 g/dL (3.8-4.9); Albumin/Globulin Ratio 1.42 (1.60-3.17); Anion Gap 11.6 mmol/L (10.00-18.00); BUN/Creat Ratio 14.89 Ratio (12.00-20.00); Blood Urea Nitrogen 13.4 mg/dL (9.0-27.0); Carbon Dioxide 28.4 mmol/L (20.0-27.5); Globulin 2.4 g/dL (1.6-3.3); Non-African American GFR(CKD) 59.1 (60.0-200.0); Potassium 4.1 mmol/L (3.5-5.5); Total Bilirubin 0.2 mg/dL (0.30-1.20); Total Protein 5.8 g/dL (6.2-8.2)
[2022-09-30 11:47] LABS: Basophils # (A) 0.02 X 10*3/uL (0.00-0.10); Basophils % (A) 0.2 %; Eosinophils # (A) 0.38 X 10*3/uL (0.04-0.35); Eosinophils % (A) 3.9 %; HCT 35.4 % (37.2-46.3); HGB 11.1 g/dL (12.0-15.0); Immature Grans, Automated 0.4 %; Lymphocytes % (A) 9.2 %; MCH 32.7 pg (27.0-32.0); MCHC 31.4 g/dL (32.0-37.0); MCV 104.4 fL (80.0-97.0); Mean Platelet Volume 10.7 fL (9.5-12.2); Monocytes % (A) 11.3 %; NRBC Per 100 WBC 0 /100 WBCS (0.0-0.0); Neutrophils # (A) 7.33 X 10*3/uL (1.80-7.70); Platelet Count 257 X 10*3/uL (140-440); RBC 3.39 X 10*6/uL (4.10-5.20); RDW 13.1 % (11.5-14.5); WBC 9.77 X 10*3/uL (4.50-10.00)
[2022-09-30 12:09] VITALS: BP 127/74; PULSE 60; RESP 17; TEMP 98.3
--- NOTE | 2022-09-30 14:30 | P.PN ---
Subjective Progress Note Date: 09/29/22 Principal diagnosis: Right lower extremity wound and cellulitis Patient is a 81-year-old female with a past medical history significant for right lower extremity venous stasis ulcer and cellulitis patient presenting to the ER yesterday afternoon for evaluation of increasing swelling and redness to the right lower extremity patient symptom has been getting worse for the last few days before presentation to the hospital, patient was diagnosed with right lower extremity cellulitis and admitted to the hospital. On today's evaluation that is 09/29/2022 the patient remains to be afebrile breathing comfortably on room air denies any chest pain shortness of the cough n o abdominal pain right lower extremity pain and swelling has improved Objective - Vital Signs Vital signs: Vital Signs Temp 98 F 09/29/22 05:08 Pulse 72 09/29/22 07:56 Resp 16 09/29/22 05:08 BP 139/65 09/29/22 07:56 Pulse Ox 94 L 09/29/22 05:08 FiO2 Intake & Output 09/28/22 09/29/22 09/29/22 18:59 06:59 18:59 Weight 98.43 kg Other: Voiding Method Toilet Toilet # Voids 1 # Bowel Movements 1 - Exam GENERAL DESCRIPTION: An elderly female lying in bed in no distress RESPIRATORY SYSTEM: Unlabored breathing , decreased breath sounds at bases HEART: S1 S2 regular rate and rhythm , ABDOMEN: Soft , no tenderness EXTREMITIES: Right lower extremity swelling redness slightly decreased - Labs CBC & Chem 7: 09/30/22 06:31 09/30/22 06:31 Labs: Abnormal Lab Results - Last 24 Hours (Table) 09/29/22 09/29/22 Range/Units 03:43 03:43 RBC 3.32 L (4.10-5.20) X 10*6/uL Hgb 10.7 L (12.0-15.0) g/dL Hct 35.2 L (37.2-46.3) % MCV 106.0 H (80.0-97.0) fL MCH 32.2 H (27.0-32.0) pg MCHC 30.4 L (32.0-37.0) g/dL Immature Gran # 0.06 H (0.00-0.04) X 10*3/uL Lymphocytes # 0.72 L (0.90-5.00) X 10*3/uL Eosinophils # 0.55 H (0.04-0.35) X 10*3/uL Carbon Dioxide 31.1 H (20.0-27.5) mmol/L Anion Gap 8.90 L (10.00-18.00) mmol/L Est GFR (CKD-EPI)NonAf 52.1 L (60.0-200.0) Calcium 8.6 L (8.7-10.3) mg/dL Total Bilirubin <0.15 L (0.30-1.20) mg/dL Total Protein 5.7 L (6.2-8.2) g/dL Albumin 3.4 L (3.8-4.9) g/dL Albumin/Globulin Ratio 1.48 L (1.60-3.17) g/dL Microbiology - Last 24 Hours (Table) 09/24/22 14:30 Blood Culture - Preliminary Blood No Growth after 96 hours 09/24/22 14:18 Blood Culture - Preliminary Blood No Growth after 96 hours 09/24/22 15:53 Gram Stain - Final Ankle - Right Wound Culture - Final Assessment and Plan (1) Cellulitis of right leg Current Visit: No Status: Acute Code(s): L03.115 - CELLULITIS OF RIGHT LOWER LIMB SNOMED Code(s): 259775259 Plan: 1patient with a chronic nonhealing wound to the right lower extremity likely a venous stasis ulcer now with evidence of secondary cellulitis likely from gram- positive skin janie gram-negative infection not entirely excluded. 2sulfa allergy therapy limit the number of antibiotics safe to use. 3local wound care with the [facility] followed by moist dressing change daily. 4patient local culture has been negative for any resistant pathogen 5Patient to continue with the cefazolin she will get a midline in the morning and will continue with the cefazolin 2 g every 8 hours for 2 weeks on discharge and close outpatient follow-up Time with Patient: Less than 30
--- NOTE | 2022-09-30 16:53 | P.DS ---
Providers Date of admission: 09/24/22 18:08 Expected date of discharge: 09/30/22 Attending physician: Ten Guerrero Consults: 09/24/22 16:55 Consult Physician Urgent Consulting Provider: Caleb Babin Consult Reason/Comments: cellulitis Do you want consulting provider notified?: Yes Primary care physician: Ten Guerrero [facility] Course: Diagnosis on discharge: Right lower extremity cellulitis with large ulcer, failed outpatient therapy with oral cephalexin Underlying history of hypertension Underlying history of hyperlipidemia Underlying history of depression with anxiety disorder Underlying history of morbid obesity Hospital course: Dania Vergara, is a year old male who presented to [facility] emergency room with a chief complaint of right lower extremity cellulitis with large ulcer, patient had difficulty with bilateral lower extremity cellulitis on and off over the years she was seen repeatedly at the wound care clinic and was treated for infections and open ulcers. Recently she presented to the office with significant infection in the right lower extremity and large ulcer on the lateral side above the right ankle she was treated with oral antibiotic cephalexin but did not have significant improvement, she presented to emergency room, and was subsequently admitted to medical floor she was started on IV antibiotics Zosyn, infectious disease and vascular surgery consultation were requested. She was evaluated in the emergency room vital examination on presentation revealed a temperature of 98.7 pulse 96 respirations 16 blood pressure 137/69 pulse ox 94% on room air Laboratory data revealed a white blood count of 8.2 hemoglobin 12.0 platelet count 249 sodium 144 potassium 4.3 chloride 105 CO2 34 BUN 21 creatinine 0.94 Testing in the emergency room revealed right ankle x-ray revealed evidence of cellulitis with ulcer but no evidence of osteomyelitis Patient was admitted to medical floor for further evaluation and treatment On 09/26/2022 patient was seen and examined on the medical floor she is alert and oriented 3 in no apparent distress she is complaining of pain in her right lower extremity otherwise she denies any complaints there is no fever or chills no headache or dizziness, no chest pain no shortness of breath no cough no nausea or vomiting no abdominal pain no diarrhea and no urinary symptoms. At this time except is maintained on IV antibiotics she is followed by infectious disease will continue to follow closely On 09/27/2022 patient was seen and examined on the medical floor she is alert and oriented 3 in no apparent distress she is complaining of pain in her right lower extremity otherwise she denies any complaints there is no fever or chills no headache or dizziness, no chest pain no shortness of breath no cough no nausea or vomiting no abdominal pain no diarrhea and no urinary symptoms. At this time except is maintained on IV antibiotics she is followed by infectious disease will continue to follow closely. Today patient developed erythematous rash on the abdomen with itching, at this time will discontinue subcu Lovenox, add Benadryl 25 mg 3 times daily as needed, encourage patient to ambulate every 1-2 hours during the day, consult physical therapy and occupational therapy. At this time we are still awaiting for wound culture results. On 09/28/2022 patient was seen and examined on the medical floor, he is alert and oriented x 3 in no distress there is no fever or chills no headache or dizziness no chest pain no shortness of breath no cough no nausea or vomiting no abdominal pain no diarrhea and no urinary symptoms patient has a large wound on her right lower extremity with excessive serous drainage requiring multiple change of dressing daily, she is still maintained on IV antibiotic On 09/29/2022 patient is alert and oriented 3. Awaiting midline placement today per infectious disease ordered. Patient requesting to be DC'd home tomorrow due to inability to get ride later today after midline placement. Case management services consulted to arrange home health care. Patient denies chest pain or shortness breath. Patient denies nausea vomiting or diarrhea. Patient denies any urinary burning or frequency On 09/30/2022 patient is alert and oriented 3. Patient seen and examined on the medical floor. Case management services consulted to arrange home health care. Patient denies chest pain or shortness breath. Patient denies nausea vomiting or diarrhea. Patient denies any urinary burning or frequency. Plan for discharge to home today. Patient Condition at Discharge: Fair Plan - Discharge Summary Discharge Rx Participant: No New Discharge Prescriptions: New diphenhydrAMINE [Benadryl] 25 mg PO TID PRN cap PRN Reason: Itching ceFAZolin [Kefzol] 2 gm IVP Q8HR #42 each Petrolat,White/Dale/8-Hydroxyqu [[place]] 1 gm TOPICAL TID gm Continue hydrALAZINE HCL 25 mg PO BID atenoloL 25 mg PO BID Furosemide [Lasix] 40 mg PO DAILY HYDROcodone/APAP 10-325MG [[place] 10-325] 1 tab PO Q8HR PRN PRN Reason: Pain Simvastatin [Zocor] 20 mg PO HS Montelukast [Singulair] 10 mg PO DAILY Potassium Chloride [K-Tab ER] 10 meq PO DAILY traZODone HCL [Desyrel] 50 mg PO HS FLUoxetine HCL [PROzac] 10 mg PO DAILY Discontinued Cephalexin [Keflex] 500 mg PO Q6HR Discharge Medication List Furosemide [Lasix] 40 mg PO DAILY 01/18/17 [History] atenoloL 25 mg PO BID 01/18/17 [History] hydrALAZINE HCL 25 mg PO BID 01/18/17 [History] HYDROcodone/APAP 10-325MG [[place] 10-325] 1 tab PO Q8HR PRN 02/21/17 [History] Montelukast [Singulair] 10 mg PO DAILY 08/18/19 [History] Potassium Chloride [K-Tab ER] 10 meq PO DAILY 08/18/19 [History] Simvastatin [Zocor] 20 mg PO HS 08/18/19 [History] FLUoxetine HCL [PROzac] 10 mg PO DAILY 09/24/22 [History] traZODone HCL [Desyrel] 50 mg PO HS 09/24/22 [History] Petrolat,White/Dale/8-Hydroxyqu [[place]] 1 gm TOPICAL TID gm 09/30/22 [Rx] ceFAZolin [Kefzol] 2 gm IVP Q8HR #42 each 09/30/22 [Rx] diphenhydrAMINE [Benadryl] 25 mg PO TID PRN cap 09/30/22 [Rx] Follow up Appointment(s)/Referral(s): Kiki Singh DO [STAFF PHYSICIAN] - 10/27/22 9:15 am [facility], [REFERRING] - 1 Week [facility] [NON-STAFF] - 1 Week Ten Guerrero MD [Primary Care Provider] - 10/05/22 2:15 pm (PLEASE CALL AND SCHEDULE APPOINTMENT) Caleb Babin MD [STAFF PHYSICIAN] - 10/13/22 9:15 am (APPOINTMENT IS AT [facility] AT [address] [place] [address]. [phone].) Patient Instructions/Handouts: Cefazolin (By injection), Cellulitis (GEN) Activity/Diet/Wound Care/Special Instructions: Patient to follow-up with Dr. Babin in the wound care center, call [phone] to make an appointment. Right lower Extremity medihoney moist dressing ABD pad daily. diet as tolerated
== END 2022-09-30 17:40 | disposition home health service (06) | DRG 593 ==
LOC: EC 11:47 → 5NMEDONC 18:08
PROVIDERS: ADMIT Internal Medicine; ATTEND Internal Medicine
PROC: 05HC33Z Insertion of Infusion Device into Left Basilic Vein, Percutaneous Approach (ICD-10-PCS; principal; 2022-09-29 07:30)
DX: L97.319 Non-pressure chronic ulcer of right ankle with unspecified severity (principal); L03.115 Cellulitis of right lower limb; L03.116 Cellulitis of left lower limb; E78.5 Hyperlipidemia, unspecified; I10 Essential (primary) hypertension; I87.2 Venous insufficiency (chronic) (peripheral); Z79.899 Other long term (current) drug therapy; Z86.010 Personal history of colon polyps; E66.01 Morbid (severe) obesity due to excess calories; F32.A Depression, unspecified; Z68.39 Body mass index [BMI] 39.0-39.9, adult; G89.29 Other chronic pain; M54.2 Cervicalgia; M54.9 Dorsalgia, unspecified; K57.90 Diverticulosis of intestine, part unspecified, without perforation or abscess without bleeding; M19.90 Unspecified osteoarthritis, unspecified site; Z71.3 Dietary counseling and surveillance; Z88.2 Allergy status to sulfonamides; Z60.2 Problems related to living alone; Z96.653 Presence of artificial knee joint, bilateral; F41.9 Anxiety disorder, unspecified; K21.9 Gastro-esophageal reflux disease without esophagitis; Z87.440 Personal history of urinary (tract) infections
CPT/HCPCS: 36410; 36415; 76937; 80053; 81001; 83605; 83735; 85025; 87040; 87070; 87205; 96365; 96366; 96375; 99285

== ENCOUNTER 2022-10-06 10:51 | Day surgery (SDC) | payer MEDICARE, OTHER ==
[2022-10-06 11:14] VITALS: TEMP 98
[2022-10-06] MEDS ORDERED: LIDOCAINE 1% INJ 10MG/ML (5 ML VIAL-PF) SQ ONE (12:07)
--- NOTE | 2022-10-06 12:37 | IR ---
PICC LINE PLACEMENT: HISTORY: Infection requiring long-term antibiotic therapy PROCEDURE: Ultrasound and fluoroscopic guidance of PICC line placement. COMPLICATIONS: None ANESTHESIA: 1. 1% Lidocaine locally. FINDINGS/TECHNIQUE: The procedure was explained to the patient. The risks, complications, benefits and alternatives were discussed and any questions were answered. Informed consent was obtained. The patient was placed supine on the fluoroscopic table and prepped and draped in the usual sterile fash ion. Utilizing a 21 gauge needle and sonographic and fluoroscopic guidance, access in the left basi lic vein was achieved and there is placement of a 0.018 guidewire. The vein is patent. A 4-F sheath was placed over the guidewire. The guidewire and dilator were removed and a 4-F. PICC line was plac ed through the sheath with the tip at the level of the SVC. The sheath was removed, the catheter was flushed and sutured into position. The patient was stable throughout the procedure and remained sta ble upon discharge from the Department of Radiology. The vein puncture was patent under ultrasound. A shi scale image was obtained to document patency of the vein punctured. All elements of the maximal barrier technique were utilized. FLUOROSCOPY TIME: 0.6 minutes and one images submitted IMPRESSION: Successful PICC line placement under ultrasound and fluoroscopic guidance.
[2022-10-06 15:21] VITALS: BP 140/63; PULSE 62; RESP 16
== END 2022-10-06 12:42 | disposition home or self-care (01) ==
LOC: CATHCVL 10:51
PROVIDERS: ATTEND Radiology Diagnostic Radiology
DX: L03.116 Cellulitis of left lower limb (principal); I10 Essential (primary) hypertension; E78.5 Hyperlipidemia, unspecified; F41.9 Anxiety disorder, unspecified; F32.A Depression, unspecified; Z79.899 Other long term (current) drug therapy
CPT/HCPCS: 36573; C1751; C1769; J2001

== ENCOUNTER 2023-04-18 09:22 | Inpatient (IN) | payer MEDICARE, OTHER ==
[2023-04-18] MEDS ORDERED: HYDROmorphone 0.5 MG/0.5 ML SYRINGE IVP STA (11:11)
--- NOTE | 2023-04-18 11:13 | ED ---
Skin/Abscess/FB HPI - General Chief complaint: Skin/Abscess/Foreign Body Stated complaint: Cellulitis, PCP sent for admission Time Seen by Provider: 04/18/23 10:35 Source: patient, RN notes reviewed Mode of arrival: wheelchair Limitations: no limitations - History of Present Illness Initial comments: This is an 82-year-old female who presents to the emergency department for right lower extremity cellulitis. States that she has had ongoing problems with this for a long period of time. She was hospitalized for this at the end of last year. She had been following up with wound care at [facility] and in late September and early October, this started to heal very well. However, over the last several months, this has started to get much worse again. She is concerned that the wound center at [facility] is causing this to become worse and she is hoping to become established with the wound center here instead. She saw Dr. Guerrero, her PCP, 3 days ago. She has been taking Keflex with no improvement in symptoms. States that she was sent here for admission and IV antibiotics. She is taking hydrocodone for her pain, which has not been effective. Denies any fevers, chills, sore throat, cough, dyspnea, chest pain, palpitations, abdominal pain, nausea, vomiting, diarrhea, back pain, or headaches. MD complaint: other (cellulitis) - Related Data Home Medications Medication Instructions Recorded Confirmed atenoloL 25 mg PO BID 01/18/17 04/18/23 hydrALAZINE HCL 25 mg PO BID 01/18/17 04/18/23 HYDROcodone/APAP 10-325MG [[place] 1 tab PO Q8HR PRN 02/21/17 04/18/23 10-325] Montelukast [Singulair] 10 mg PO DAILY 08/18/19 04/18/23 Potassium Chloride [K-Tab ER] 10 meq PO DAILY 08/18/19 04/18/23 Simvastatin [Zocor] 20 mg PO HS 08/18/19 04/18/23 FLUoxetine HCL [PROzac] 10 mg PO DAILY 09/24/22 04/18/23 Cephalexin [Keflex] 500 mg PO Q8HR 04/18/23 04/18/23 Ergocalciferol (Vitamin D2) 1,250 mcg PO THAPA 04/18/23 04/18/23 [Drisdol (50,000 Iu)] Allergies Allergy/AdvReac Type Severity Reaction Status Date / Time adhesive tape Allergy Unknown Rash/Hives Verified 04/18/23 12:16 Sulfa (Sulfonamide Allergy Rash/Hives Verified 04/18/23 12:16 Antibiotics) Review of Systems ROS Statement: Those systems with pertinent positive or pertinent negative responses have been documented in the HPI. ROS Other: All systems not noted in ROS Statement are negative. Past Medical History Past Medical History: GERD/Reflux, Hyperlipidemia, Hypertension, Osteoarthritis (OA), Skin Disorder Additional Past Medical History / Comment(s): chronic low back/cervical and bilateral shoulder pain, benign colon polyps/diverticular disease, bilateral lower extremity cellulitis but R leg much more often, UTIs, polynephritis, hiatal hernia many years ago. History of Any Multi-Drug Resistant Organisms: None Reported Past Surgical History: Appendectomy, Cholecystectomy, Joint Replacement, Tubal Ligation Additional Past Surgical History / Comment(s): Bilateral total knee arthroplasties, pain clinic procedures, colonoscopies/benign polypectomies, bilateral cataract removals/lens implants, PICC line. Past Anesthesia/Blood Transfusion Reactions: No Reported Reaction Past Psychological History: No Psychological Hx Reported Smoking Status: Never smoker Past Alcohol Use History: Rare Past Drug Use History: None Reported - Past Family History Mother Family Medical History: Cancer Additional Family Medical History / Comment(s): BREAST CANCER. at 28 years old Father Family Medical History: Cancer Additional Family Medical History / Comment(s): LIVER CANCER/HEART PROBLEMS. Son(s) Family Medical History: Cancer Additional Family Medical History / Comment(s): MULTIPLE MYELOMA/bone cancer- PASSED 2015. General Exam Limitations: no limitations General appearance: alert, in no apparent distress Head exam: Present: atraumatic, normocephalic, normal inspection Respiratory exam: Present: normal lung sounds bilaterally. Absent: respiratory distress, wheezes, rales, rhonchi, stridor Cardiovascular Exam: Present: regular rate, normal rhythm, normal heart sounds. Absent: systolic murmur, diastolic murmur, rubs, gallop, clicks Extremities exam: Present: other (Bandage in place over the right lower extremity. The drainage is visible through the bandages as well as swelling to the right lower extremity. Patient declines to have the bandage removed at this time.) Neurological exam: Present: alert, oriented X3, CN II-XII intact Psychiatric exam: Present: normal affect, normal mood Course Vital Signs 04/18/23 04/18/23 04/18/23 09:27 13:13 14:00 Temperature 98.1 F Pulse Rate 66 Respiratory 20 Rate Blood Pressure 114/68 122/62 O2 Sat by Pulse 96 98 97 Oximetry 04/18/23 04/18/23 15:00 16:00 Temperature Pulse Rate Respiratory 16 Rate Blood Pressure 115/56 117/55 O2 Sat by Pulse 99 97 Oximetry Medical Decision Making - Medical Decision Making This is an 82-year-old female who presents to the emergency department for right lower extremity cellulitis. Was pt. sent in by a medical professional or institution? @ -Her PCP Did you speak to anyone other than the patient for history? @ -No Did you review nursing and triage notes? @ -Yes, and I agree, it is accurate with regards to the patient's symptoms. Were old charts reviewed? @ -No Differential Diagnosis? @ -Not applicable EKG interpreted by me (3pts min.)? @ -Not obtained X-rays interpreted by me (1pt min.)? @ -X-ray of the right foot and tib-fib obtained. My interpretation identifies no evidence of subcutaneous gas formation. CT interpreted by me (1pt min.)? @ -Not obtained U/S interpreted by me (1pt. min.)? @ -Not obtained What testing was considered but not performed? (CT, X-rays, U/S, labs)? Why? @ -None What meds were considered but not given? Why? @ -None Did you discuss the management of the patient with other professionals? @ -Dr. Guerrero, who accepts the patient for admission. Did you reconcile home meds? @ -No Was smoking cessation discussed for >3mins.? @ -No Was critical care preformed (if so, how long)? @ -No Were there social determinants of health that impacted care today? How? (Homelessness, low income, unemployed, alcoholism, drug addiction, transportation, low edu. Level, literacy, decrease access to med. care, [facility], rehab)? @ -No Was there de-escalation of care discussed even if they declined? (Discuss DNR or withdrawal of care, Hospice)? @ -No What co-morbidities impacted this encounter? (DM, HTN, Smoking, COPD, CAD, Cancer, CVA, Hep., AIDS, mental health diagnosis, sleep apnea, morbid obesity)? @ -HLD, HTN Was patient admitted / discharged? @ -Admitted. Lab work obtained revealing an elevated CRP and acute kidney injury. X-ray of the right tib-fib and foot obtained. Findings reveal soft tissue swelling. Patient started on IV cefepime and vancomycin with blood cultures obtained prior. Patient declined to have her bandages removed in the emergency department, she did show me photographs of them revealing diffuse erythematous changes with areas of ulcerations. Patient admitted to medicine for further management with infectious disease consult placed. Undiagnosed new problem with uncertain prognosis? @ -None Drug Therapy requiring intensive monitoring for toxicity (Heparin, Nitro, Insulin, Cardizem)? @ -None Were any procedures done? @ -None Diagnosis/symptom? @ -Right lower extremity cellulitis Acute, or Chronic, or Acute on Chronic? @ -Chronic Uncomplicated (without systemic symptoms) or Complicated (systemic symptoms)? @ -Complicated Side effects of treatment? @ -None Exacerbation, Progression, or Severe Exacerbation] @ -Progression Poses a threat to life or bodily function? @ -Yes This case was discussed in detail with the attending ED physician, Dr. Romero. Presentation, findings, and treatment plan discussed in detail as well. - Lab Data Result diagrams: 04/18/23 10:46 04/18/23 10:46 Lab Results 04/18/23 04/18/23 04/18/23 Range/Units 10:46 10:46 10:46 WBC 8.8 (3.8-10.6) k/uL RBC 3.72 L (3.80-5.40) m/uL Hgb 12.0 (11.4-16.0) gm/dL Hct 37.6 (34.0-46.0) % MCV 101.3 H (80.0-100.0) fL MCH 32.2 (25.0-35.0) pg MCHC 31.8 (31.0-37.0) g/dL RDW 13.0 (11.5-15.5) % Plt Count 286 (150-450) k/uL MPV 8.0 Neutrophils % 81 % Lymphocytes % 9 % Monocytes % 7 % Eosinophils % 2 % Basophils % 0 % Neutrophils # 7.1 (1.3-7.7) k/uL Lymphocytes # 0.8 L (1.0-4.8) k/uL Monocytes # 0.6 (0-1.0) k/uL Eosinophils # 0.2 (0-0.7) k/uL Basophils # 0.0 (0-0.2) k/uL Sodium 141 (137-145) mmol/L Potassium 4.4 (3.5-5.1) mmol/L Chloride 106 (98-107) mmol/L Carbon Dioxide 21 L (22-30) mmol/L Anion Gap 14 mmol/L BUN 50 H (7-17) mg/dL Creatinine 1.67 H (0.52-1.04) mg/dL Est GFR (CKD-EPI)AfAm 32 (>60 ml/min/1.73 sqM) Est GFR (CKD-EPI)NonAf 28 (>60 ml/min/1.73 sqM) Glucose 123 H (74-99) mg/dL Plasma Lactic Acid Mayito 0.9 (0.7-2.0) mmol/L Calcium 8.7 (8.4-10.2) mg/dL Total Bilirubin 0.3 (0.2-1.3) mg/dL AST 21 (14-36) U/L ALT 14 (4-34) U/L Alkaline Phosphatase 72 (38-126) U/L C-Reactive Protein 6.9 H (<1.0) mg/dL Total Protein 6.7 (6.3-8.2) g/dL Albumin 3.6 (3.5-5.0) g/dL - Radiology Data Radiology results: report reviewed, image reviewed Disposition Clinical Impression: Cellulitis of right lower extremity Disposition: ADMITTED IP TO THIS HOSP
[2023-04-18 11:16] LABS: Basophils % (A) 0 %; Eosinophils # (A) 0.2 k/uL (0-0.7); Eosinophils % (A) 2 %; HCT 37.6 % (34.0-46.0); Lymphocytes # (A) 0.8 k/uL (1.0-4.8); Lymphocytes % (A) 9 %; MCH 32.2 pg (25.0-35.0); MCHC 31.8 g/dL (31.0-37.0); MCV 101.3 fL (80.0-100.0); Monocytes # (A) 0.6 k/uL (0-1.0); Monocytes % (A) 7 %; Neutrophils # (A) 7.1 k/uL (1.3-7.7); Neutrophils % (A) 81 %; Platelet Count 286 k/uL (150-450); RBC 3.72 m/uL (3.80-5.40); WBC 8.8 k/uL (3.8-10.6)
[2023-04-18] MEDS ORDERED: CEFEPIME 2 GM in SODIUM CHLORIDE 0.9% 100 ML IVPB STA (11:27)
[2023-04-18] MEDS ORDERED: VANCOMYCIN IV PER PHARMACY 1 EACH MISC MISCELLANE PRN (11:27)
[2023-04-18 11:29] LABS: ALT 14 U/L (4-34); AST 21 U/L (14-36); African American GFR (CKD) 32 (>60 ml/min/1.73 sqM); Albumin 3.6 g/dL (3.5-5.0); Alkaline Phosphatase 72 U/L (38-126); Anion Gap 14 mmol/L; Blood Urea Nitrogen 50 mg/dL (7-17); C Reactive Protein 6.9 mg/dL (<1.0); Calcium 8.7 mg/dL (8.4-10.2); Carbon Dioxide 21 mmol/L (22-30); Chloride 106 mmol/L (98-107); Glucose 123 mg/dL (74-99); Non-African American GFR(CKD) 28 (>60 ml/min/1.73 sqM); Potassium 4.4 mmol/L (3.5-5.1); Sodium 141 mmol/L (137-145); Total Bilirubin 0.3 mg/dL (0.2-1.3); Total Protein 6.7 g/dL (6.3-8.2)
[2023-04-18] MEDS ORDERED: CEFEPIME 1 GM in SODIUM CHLORIDE 0.9% 50 ML IVPB STA (11:32)
[2023-04-18] MEDS ORDERED: VANCOMYCIN 1,500 MG in SODIUM CHLORIDE 0.9% 500 ML 500 ML IVPB STA (11:35)
[2023-04-18] MEDS ORDERED: NALOXONE 0.4 MG/ML 1 ML VIAL IV PRN (11:37)
[2023-04-18] MEDS ORDERED: ACETAMINOPHEN TAB 325 MG TAB PO PRN (11:37)
[2023-04-18] MEDS ORDERED: ONDANSETRON 4 MG/2 ML VIAL IVP PRN (11:37)
--- NOTE | 2023-04-18 11:40 | XR ---
EXAMINATION TYPE: XR foot complete RT, XR tibia fibula RT DATE OF EXAM: 04/18/2023 CLINICAL HISTORY: pain TECHNIQUE: Frontal, lateral and oblique images of the right foot are obtained. AP and lateral views o f the right tibia and fibula are submitted. COMPARISON: 09/24/2022 FINDINGS: Overlying dressing limits evaluation. There appears to be soft tissue swelling overlying th e plantar aspect of the right foot as well as the distal soft tissues of the right lower extremity. T here is linear lucency overlying the posterior os calcis which was present previously. Clinical corre lation is advised. Severe hallux valgus deformity at the first metatarsophalangeal joint. Plantar timoteo caneal spurring. Total knee arthroplasty. No acute fracture of the tibia or fibula. IMPRESSION: 1. Evaluation limited by overlying bandages. There is soft tissue swelling as noted above which may r eflect cellulitis. No definite changes of osteomyelitis at this time. 2. Linear lucency traversing the posterior os calcis was present previously and not as conspicuous on the tibia and fibula images. Correlate clinically for possible fracture although this is felt to be unlikely.
[2023-04-18] MEDS: HYDROmorphone 0.5 MG/0.5 ML SYRINGE IVP PRN ×2 (15:35→20:31)
[2023-04-18] MEDS ORDERED: HYDROcodone/APAP 10-325MG 1 EACH TAB PO PRN (17:13)
[2023-04-18] MEDS: hydrALAZINE HCL 25 MG TAB PO SCH (20:31)
[2023-04-18] MEDS: atenoloL 25 MG TAB PO SCH (20:31)
[2023-04-18] MEDS: ATORVASTATIN 10 MG TAB PO SCH (20:31)
--- NOTE | 2023-04-18 22:20 | P.CONS ---
History of Present Illness - Reason for Consult Consult date: 04/18/23 - History of Present Illness Patient is a 82-year-old female with a past medical history significant for right lower extremity venous stasis ulcer and secondary cellulitis patient used to follow with me at [facility] wound care center subsequently care has been switched over to Dr. Miranda patient mention the wound was almost healed however over the last few months the wound has becoming worse with increasing swelling redness and also having some drainage patient be complaining of pain describing it to be sharp almost 10 out of 10 in severity with no radiation with associated swelling redness and drainage did have some chills denies high-grade fever patient was evaluated by her primary care physician who advised the patient to go to the ER on presentation to hospital. To have low-grade fever low-grade fever White count was normal the [facility] has been mild elevated was in the normal CRP 6.9 patient did have x-rays of tibia-fibula and foot negative for any bony changes patient received a dose of cefepime subsequently has been continued vancomycin infectious disease was consulted for further management of antibiotic therapy Past Medical History Past Medical History: GERD/Reflux, Hyperlipidemia, Hypertension, Osteoarthritis (OA), Skin Disorder Additional Past Medical History / Comment(s): chronic low back/cervical and bilateral shoulder pain, benign colon polyps/diverticular disease, bilateral lower extremity cellulitis but R leg much more often, UTIs, polynephritis, hiatal hernia many years ago. History of Any Multi-Drug Resistant Organisms: None Reported Past Surgical History: Appendectomy, Cholecystectomy, Joint Replacement, Tubal Ligation Additional Past Surgical History / Comment(s): Bilateral total knee arthroplasties, pain clinic procedures, colonoscopies/benign polypectomies, bilateral cataract removals/lens implants, PICC line. Past Anesthesia/Blood Transfusion Reactions: No Reported Reaction Past Psychological History: No Psychological Hx Reported Smoking Status: Never smoker Past Alcohol Use History: Rare Past Drug Use History: None Reported - Past Family History Mother Family Medical History: Cancer Additional Family Medical History / Comment(s): BREAST CANCER. at 28 years old Father Family Medical History: Cancer Additional Family Medical History / Comment(s): LIVER CANCER/HEART PROBLEMS. Son(s) Family Medical History: Cancer Additional Family Medical History / Comment(s): MULTIPLE MYELOMA/bone cancer- PASSED 2015. Medications and Allergies Home Medications Medication Instructions Recorded Confirmed Type atenoloL 25 mg PO BID 01/18/17 04/18/23 History hydrALAZINE HCL 25 mg PO BID 01/18/17 04/18/23 History HYDROcodone/APAP 10-325MG [[place] 1 tab PO Q8HR PRN 02/21/17 04/18/23 History 10-325] Montelukast [Singulair] 10 mg PO DAILY 08/18/19 04/18/23 History Potassium Chloride [K-Tab ER] 10 meq PO DAILY 08/18/19 04/18/23 History Simvastatin [Zocor] 20 mg PO HS 08/18/19 04/18/23 History FLUoxetine HCL [PROzac] 10 mg PO DAILY 09/24/22 04/18/23 History Cephalexin [Keflex] 500 mg PO Q8HR 04/18/23 04/18/23 History Ergocalciferol (Vitamin D2) 1,250 mcg PO THAPA 04/18/23 04/18/23 History [Drisdol (50,000 Iu)] Allergies Allergy/AdvReac Type Severity Reaction Status Date / Time adhesive tape Allergy Unknown Rash/Hives Verified 04/18/23 12:16 Sulfa (Sulfonamide Allergy Rash/Hives Verified 04/18/23 12:16 Antibiotics) Physical Exam Vitals: Vital Signs Temp Pulse Resp BP Pulse Ox 04/18/23 09:27 98.1 F 66 20 114/68 96 Intake and Output 04/17/23 04/18/23 04/18/23 22:59 06:59 14:59 Other: Weight 97.522 kg Results CBC & Chem 7: 04/18/23 10:46 04/18/23 10:46 Labs: Abnormal Lab Results - Last 24 Hours (Table) 04/18/23 04/18/23 Range/Units 10:46 10:46 RBC 3.72 L (3.80-5.40) m/uL MCV 101.3 H (80.0-100.0) fL Lymphocytes # 0.8 L (1.0-4.8) k/uL Carbon Dioxide 21 L (22-30) mmol/L BUN 50 H (7-17) mg/dL Creatinine 1.67 H (0.52-1.04) mg/dL Glucose 123 H (74-99) mg/dL C-Reactive Protein 6.9 H (<1.0) mg/dL Assessment and Plan Plan: 1patient with right lower extremity venous status ulcer secondary cellulitis likely from gram-positive skin janie gram-negative infection less likely but not excluded 2-patient with mild insufficiency and high risk of nephrotoxicity 3-we will discontinue vancomycin 4-advised cefepime 2 g every 12 hours 5-local wound care with a dry Aquacel dressing followed by Daniel wrap to keep the swelling down We will follow on clinical condition and cultures to further adjust medication if needed Thank you for this consultation we will follow the patient along with you Time with Patient: Greater than 30
[2023-04-19] MEDS: CEFEPIME 2 GM in SODIUM CHLORIDE 0.9% 100 ML IVPB SCH ×3 (00:01→20:29)
[2023-04-19] MEDS: HYDROmorphone 0.5 MG/0.5 ML SYRINGE IVP PRN ×4 (00:04→17:24)
[2023-04-19 06:35] LABS: ALT 13 U/L (4-34); AST 21 U/L (14-36); African American GFR (CKD) 56 (>60 ml/min/1.73 sqM); Albumin 3.1 g/dL (3.5-5.0); Alkaline Phosphatase 57 U/L (38-126); Anion Gap 7 mmol/L; Blood Urea Nitrogen 35 mg/dL (7-17); Calcium 8.4 mg/dL (8.4-10.2); Carbon Dioxide 23 mmol/L (22-30); Chloride 108 mmol/L (98-107); Glucose 138 mg/dL (74-99); Non-African American GFR(CKD) 48 (>60 ml/min/1.73 sqM); Potassium 4.7 mmol/L (3.5-5.1); Sodium 138 mmol/L (137-145); Total Bilirubin 0.4 mg/dL (0.2-1.3); Total Protein 6.1 g/dL (6.3-8.2)
[2023-04-19] MEDS: POTASSIUM CHLORIDE ER 10 MEQ TAB.ER.PRT PO SCH (08:44)
[2023-04-19] MEDS: hydrALAZINE HCL 25 MG TAB PO SCH ×2 (08:44→20:29)
[2023-04-19] MEDS: FLUoxetine HCL 10 MG CAP PO SCH (08:44)
[2023-04-19] MEDS: MONTELUKAST 10 MG TAB PO SCH (08:44)
[2023-04-19] MEDS: atenoloL 25 MG TAB PO SCH ×2 (08:44→20:29)
[2023-04-19 09:27] LABS: Basophils # (A) 0.03 X 10*3/uL (0.00-0.10); Basophils % (A) 0.4 %; Eosinophils # (A) 0.21 X 10*3/uL (0.04-0.35); Eosinophils % (A) 2.6 %; HCT 35.7 % (37.2-46.3); HGB 10.8 d/dL (12.0-15.0); Lymphocytes # (A) 0.73 X 10*3/uL (0.90-5.00); Lymphocytes % (A) 8.9 %; MCH 31.6 pg (27.0-32.0); MCHC 30.3 d/dL (32.0-37.0); MCV 104.4 FL (80.0-97.0); Mean Platelet Volume 10.8 FL (9.5-12.2); Monocytes # (A) 0.92 X 10*3/uL (0.20-1.00); Monocytes % (A) 11.2 %; NRBC Per 100 WBC 0 X 10*3/uL (0.00-0.01); Neutrophils # (A) 6.26 X 10*3/uL (1.80-7.70); Neutrophils % (A) 76.3 %; Platelet Count 273 X 10*3/uL (140-440); RBC 3.42 X 10*6/uL (4.10-5.20); RDW 13.4 % (11.5-14.5)
[2023-04-19] MEDS ORDERED: VANCOMYCIN 1,500 MG in SODIUM CHLORIDE 0.9% 500 ML 500 ML IVPB ONE (10:00)
[2023-04-19] MEDS: COLLAGENASE 250 UNIT/GM OINTMENT 30 GM TUBE TOPICAL SCH (13:53)
[2023-04-19] MEDS: HYDROPHILIC CREAM 180 GM TUBE TOPICAL SCH (13:54)
--- NOTE | 2023-04-19 18:18 | P.HPIM ---
History of Present Illness H&P Date: 04/18/23 Dania Vergara, is an 82-year-old female who presented to [facility] emergency room with a chief complaint of right lower extremity cellulitis with large ulcer, patient has suffered with cellulitis and recurrent ulcers on bilateral lower extremities for years. However had this time she has worsening of her lower extremity cellulitis with large ulcer was severe pain. She was evaluated in the emergency room vital examination on presentation revealed a temperature of 98.1 pulse 66 respiration 20 blood pressure 114/68 pulse ox 96% on room air Laboratory data revealed a white blood count of 8.8 hemoglobin 10.2 platelet count 286 BUN 50 creatinine 1.67 Testing in the emergency room, x-ray of the right foot and right tibia/fibula was done and there was no clear evidence of osteomyelitis at this. Patient was admitted to medical floor for further evaluation and treatment Past Medical History Past Medical History: GERD/Reflux, Hyperlipidemia, Hypertension, Osteoarthritis (OA), Skin Disorder Additional Past Medical History / Comment(s): chronic low back/cervical and bilateral shoulder pain, benign colon polyps/diverticular disease, bilateral lower extremity cellulitis but R leg much more often, UTIs, polynephritis, hiatal hernia many years ago. History of Any Multi-Drug Resistant Organisms: None Reported Past Surgical History: Appendectomy, Cholecystectomy, Joint Replacement, Tubal Ligation Additional Past Surgical History / Comment(s): Bilateral total knee arthroplasties, pain clinic procedures, colonoscopies/benign polypectomies, bilateral cataract removals/lens implants, PICC line. Past Anesthesia/Blood Transfusion Reactions: No Reported Reaction Past Psychological History: No Psychological Hx Reported Smoking Status: Never smoker Past Alcohol Use History: Rare Past Drug Use History: None Reported - Past Family History Mother Family Medical History: Cancer Additional Family Medical History / Comment(s): BREAST CANCER. at 28 years old Father Family Medical History: Cancer Additional Family Medical History / Comment(s): LIVER CANCER/HEART PROBLEMS. Son(s) Family Medical History: Cancer Additional Family Medical History / Comment(s): MULTIPLE MYELOMA/bone cancer- PASSED 2015. Medications and Allergies Home Medications Medication Instructions Recorded Confirmed Type atenoloL 25 mg PO BID 01/18/17 04/18/23 History hydrALAZINE HCL 25 mg PO BID 01/18/17 04/18/23 History HYDROcodone/APAP 10-325MG [[place] 1 tab PO Q8HR PRN 02/21/17 04/18/23 History 10-325] Montelukast [Singulair] 10 mg PO DAILY 08/18/19 04/18/23 History Potassium Chloride [K-Tab ER] 10 meq PO DAILY 08/18/19 04/18/23 History Simvastatin [Zocor] 20 mg PO HS 08/18/19 04/18/23 History FLUoxetine HCL [PROzac] 10 mg PO DAILY 09/24/22 04/18/23 History Cephalexin [Keflex] 500 mg PO Q8HR 04/18/23 04/18/23 History Ergocalciferol (Vitamin D2) 1,250 mcg PO THAPA 04/18/23 04/18/23 History [Drisdol (50,000 Iu)] Allergies Allergy/AdvReac Type Severity Reaction Status Date / Time adhesive tape Allergy Unknown Rash/Hives Verified 04/18/23 12:16 Sulfa (Sulfonamide Allergy Rash/Hives Verified 04/18/23 12:16 Antibiotics) Physical Exam Vitals: Vital Signs Temp Pulse Resp BP Pulse Ox 04/18/23 16:00 99.0 F 70 16 133/58 97 04/18/23 15:00 115/56 99 04/18/23 14:00 122/62 97 04/18/23 13:13 98 04/18/23 09:27 98.1 F 66 20 114/68 96 Intake and Output 04/18/23 04/18/23 04/18/23 06:59 14:59 22:59 Other: Weight 97.522 kg In general patient is alert and oriented x 3 in no distress HEENT head normocephalic and atraumatic Neck is supple no JVD no goiter no lymphadenopathy no carotid bruit Chest examination is clear to auscultation no crackles no wheezing Cardiac exam reveals regular heart sounds S1 and S2 no gallops no murmurs Abdomen is soft nontender no organomegaly with normal bowel sounds Extremity exam reveals bilateral stasis changes with right lower extremity pretibial erythema and large ulcer Neurological examination reveals no gross focal deficits Results CBC & Chem 7: 04/19/23 05:34 04/19/23 05:34 Labs: Abnormal Lab Results - Last 24 Hours (Table) 04/18/23 04/18/23 Range/Units 10:46 10:46 RBC 3.72 L (3.80-5.40) m/uL MCV 101.3 H (80.0-100.0) fL Lymphocytes # 0.8 L (1.0-4.8) k/uL Carbon Dioxide 21 L (22-30) mmol/L BUN 50 H (7-17) mg/dL Creatinine 1.67 H (0.52-1.04) mg/dL Glucose 123 H (74-99) mg/dL C-Reactive Protein 6.9 H (<1.0) mg/dL Assessment and Plan Plan: Lower extremity cellulitis with ulcer Underlying history of peripheral arterial disease Underlying history of hypertension Underlying history of hyperlipidemia Underlying history of depression with anxiety disorder Underlying history of morbid obesity At this time patient is admitted to medical floor Home medications reviewed and reordered Patient was started on IV antibiotics Infectious disease consultation was requested Will follow closely
--- NOTE | 2023-04-19 18:21 | P.PN ---
Subjective Progress Note Date: 04/19/23 Dania Vergara, is an 82-year-old female who presented to [facility] emergency room with a chief complaint of right lower extremity cellulitis with large ulcer, patient has suffered with cellulitis and recurrent ulcers on bilateral lower extremities for years. However had this time she has worsening of her lower extremity cellulitis with large ulcer was severe pain. She was evaluated in the emergency room vital examination on presentation revealed a temperature of 98.1 pulse 66 respiration 20 blood pressure 114/68 pulse ox 96% on room air Laboratory data revealed a white blood count of 8.8 hemoglobin 10.2 platelet count 286 BUN 50 creatinine 1.67 Testing in the emergency room, x-ray of the right foot and right tibia/fibula was done and there was no clear evidence of osteomyelitis at this. Patient was admitted to medical floor for further evaluation and treatment On 04/19/2023 patient was seen and examined on the medical floor she is alert and oriented 3 in no apparent distress she is still complaining of right lower extremity pain otherwise she denies any complaints there is no fever or chills no headache or dizziness no chest pain no shortness of breath no cough no nausea or vomiting no abdominal pain no diarrhea and no urinary symptoms Objective - Vital Signs Vital signs: Vital Signs Temp 98 F 04/19/23 15:00 Pulse 60 04/19/23 15:00 Resp 18 04/19/23 15:00 BP 104/67 04/19/23 15:00 Pulse Ox 97 04/19/23 15:00 FiO2 Intake & Output 04/18/23 04/19/23 04/19/23 18:59 06:59 18:59 Weight 97.522 kg Other: Voiding Method Toilet # Voids 2 2 - Exam In general patient is alert and oriented x 3 in no distress HEENT head normocephalic and atraumatic Neck is supple no JVD no goiter no lymphadenopathy no carotid bruit Chest examination is clear to auscultation no crackles no wheezing Cardiac exam reveals regular heart sounds S1 and S2 no gallops no murmurs Abdomen is soft nontender no organomegaly with normal bowel sounds Extremity exam reveals bilateral stasis changes with right lower extremity pretibial erythema and large ulcer Neurological examination reveals no gross focal deficits - Labs CBC & Chem 7: 04/19/23 05:34 06/20/23 05:34 Labs: Abnormal Lab Results - Last 24 Hours (Table) 04/19/23 04/19/23 Range/Units 05:34 05:34 RBC 3.42 L (4.10-5.20) X 10*6/uL Hgb 10.8 L (12.0-15.0) d/dL Hct 35.7 L (37.2-46.3) % MCV 104.4 H (80.0-97.0) FL MCHC 30.3 L (32.0-37.0) d/dL Lymphocytes # 0.73 L (0.90-5.00) X 10*3/uL Chloride 108 H (98-107) mmol/L BUN 35 H (7-17) mg/dL Creatinine 1.07 H (0.52-1.04) mg/dL Glucose 138 H (74-99) mg/dL Total Protein 6.1 L (6.3-8.2) g/dL Albumin 3.1 L (3.5-5.0) g/dL Microbiology - Last 24 Hours (Table) 04/18/23 10:46 Blood Culture - Preliminary Blood 04/18/23 10:46 Blood Culture - Preliminary Blood Assessment and Plan Plan: Lower extremity cellulitis with ulcer Underlying history of peripheral arterial disease Underlying history of hypertension Underlying history of hyperlipidemia Underlying history of depression with anxiety disorder Underlying history of morbid obesity At this time patient is admitted to medical floor Home medications reviewed and reordered Patient was started on IV antibiotics Infectious disease consultation was requested Will follow closely
[2023-04-19] MEDS: ATORVASTATIN 10 MG TAB PO SCH (20:29)
[2023-04-20 07:42] LABS: African American GFR (CKD) 67 (>60 ml/min/1.73 sqM); Non-African American GFR(CKD) 58 (>60 ml/min/1.73 sqM)
[2023-04-20] MEDS: HYDROmorphone 0.5 MG/0.5 ML SYRINGE IVP PRN ×4 (07:58→20:12)
[2023-04-20] MEDS: atenoloL 25 MG TAB PO SCH ×2 (07:59→20:13)
[2023-04-20] MEDS: FLUoxetine HCL 10 MG CAP PO SCH (07:59)
[2023-04-20] MEDS: CEFEPIME 2 GM in SODIUM CHLORIDE 0.9% 100 ML IVPB SCH ×2 (07:59→20:13)
[2023-04-20] MEDS: MONTELUKAST 10 MG TAB PO SCH (07:59)
[2023-04-20] MEDS: hydrALAZINE HCL 25 MG TAB PO SCH ×2 (07:59→20:13)
[2023-04-20] MEDS: POTASSIUM CHLORIDE ER 10 MEQ TAB.ER.PRT PO SCH (07:59)
[2023-04-20] MEDS: HYDROPHILIC CREAM 180 GM TUBE TOPICAL SCH (08:00)
[2023-04-20] MEDS: COLLAGENASE 250 UNIT/GM OINTMENT 30 GM TUBE TOPICAL SCH (08:00)
[2023-04-20 11:40] LABS: Basophils % (A) 1 %; Eosinophils # (A) 0.2 k/uL (0-0.7); Eosinophils % (A) 3 %; HCT 35.6 % (34.0-46.0); Hypochromasia Moderate; Lymphocytes # (A) 0.9 k/uL (1.0-4.8); Lymphocytes % (A) 15 %; MCHC 30.9 g/dL (31.0-37.0); MCV 103.5 fL (80.0-100.0); Macrocytosis Slight; Mean Platelet Volume 7.8; Monocytes # (A) 0.3 k/uL (0-1.0); Monocytes % (A) 5 %; Neutrophils # (A) 4.6 k/uL (1.3-7.7); Neutrophils % (A) 75 %; Platelet Count 277 k/uL (150-450); RBC 3.44 m/uL (3.80-5.40); RDW 12.8 % (11.5-15.5)
--- NOTE | 2023-04-20 13:52 | P.PN ---
Subjective Progress Note Date: 04/20/23 Dania Vergara, is an 82-year-old female who presented to [facility] emergency room with a chief complaint of right lower extremity cellulitis with large ulcer, patient has suffered with cellulitis and recurrent ulcers on bilateral lower extremities for years. However had this time she has worsening of her lower extremity cellulitis with large ulcer was severe pain. She was evaluated in the emergency room vital examination on presentation revealed a temperature of 98.1 pulse 66 respiration 20 blood pressure 114/68 pulse ox 96% on room air Laboratory data revealed a white blood count of 8.8 hemoglobin 10.2 platelet count 286 BUN 50 creatinine 1.67 Testing in the emergency room, x-ray of the right foot and right tibia/fibula was done and there was no clear evidence of osteomyelitis at this. Patient was admitted to medical floor for further evaluation and treatment On 04/19/2023 patient was seen and examined on the medical floor she is alert and oriented 3 in no apparent distress she is still complaining of right lower extremity pain otherwise she denies any complaints there is no fever or chills no headache or dizziness no chest pain no shortness of breath no cough no nausea or vomiting no abdominal pain no diarrhea and no urinary symptoms. On 04/20/2023 patient was seen and examined on the medical floor she is alert and oriented 3 in no apparent distress she is still complaining of right lower extremity pain otherwise she denies any complaints there is no fever or chills no headache or dizziness no chest pain no shortness of breath no cough no nausea or vomiting no abdominal pain no diarrhea and no urinary symptoms Objective - Vital Signs Vital signs: Vital Signs Temp 98.6 F 04/20/23 08:00 Pulse 72 04/20/23 08:00 Resp 16 04/20/23 08:00 BP 136/48 04/20/23 08:00 Pulse Ox 97 04/20/23 03:04 FiO2 Intake & Output 04/19/23 04/20/23 04/20/23 18:59 06:59 18:59 Other: Voiding Method Toilet Toilet # Voids 2 2 - Exam In general patient is alert and oriented x 3 in no distress HEENT head normocephalic and atraumatic Neck is supple no JVD no goiter no lymphadenopathy no carotid bruit Chest examination is clear to auscultation no crackles no wheezing Cardiac exam reveals regular heart sounds S1 and S2 no gallops no murmurs Abdomen is soft nontender no organomegaly with normal bowel sounds Extremity exam reveals bilateral stasis changes with right lower extremity pretibial erythema and large ulcer Neurological examination reveals no gross focal deficits - Labs CBC & Chem 7: 04/19/23 05:34 04/20/23 05:54 Labs: Microbiology - Last 24 Hours (Table) 04/18/23 10:46 Blood Culture - Preliminary Blood 04/18/23 10:46 Blood Culture - Preliminary Blood Assessment and Plan Plan: Lower extremity cellulitis with ulcer Underlying history of peripheral arterial disease Underlying history of hypertension Underlying history of hyperlipidemia Underlying history of depression with anxiety disorder Underlying history of morbid obesity At this time patient is admitted to medical floor Home medications reviewed and reordered Patient was started on IV antibiotics Infectious disease consultation was requested Will follow closely
--- NOTE | 2023-04-20 14:47 | P.GSCN ---
History of Present Illness Consult date: 04/20/23 Reason for Consult: Vascular exam Requesting physician: Ten Guerrero History of present illness: This is a pleasant 82-year-old female who presented to the emergency department with concerns of worsening cellulitis and lower extremity ulcers. Patient apparently has a history of chronic venous ulcers and cellulitis which he states dates back several years. She states that they will heal and then returned. She had been following with Dr. Babin since last year at [facility] and states that her right lower extremity ulcer was healing. She then switched over and was seeing Dr. Miranda at the wound care center for the last several months and states she does not feel that her ulcers are improving. She also states she did recently have an arterial study in his office which she states was good. Patient states that she has pain in the right lower extremity and is currently wrapped with Daniel wrap. She states that she does not wear compression stockings at home. Her past medical history includes GERD, hyperlipidemia, hypertension, osteoarthritis, morbid obesity, lower extremity cellulitis, venous stasis and venous ulcers. Patient is currently being followed by infectious disease for cellulitis and is on Maxipime. She denies shortness of breath, chest pain, abdominal pain, nausea or vomiting, any fevers or chills. Review of Systems A 14 point review systems was completed all pertinent positives and negatives as stated in the HPI. Past Medical History Past Medical History: GERD/Reflux, Hyperlipidemia, Hypertension, Osteoarthritis (OA), Skin Disorder Additional Past Medical History / Comment(s): chronic low back/cervical and bilateral shoulder pain, benign colon polyps/diverticular disease, bilateral lower extremity cellulitis but R leg much more often, UTIs, polynephritis, hiatal hernia many years ago. History of Any Multi-Drug Resistant Organisms: None Reported Past Surgical History: Appendectomy, Cholecystectomy, Joint Replacement, Tubal Ligation Additional Past Surgical History / Comment(s): Bilateral total knee arthroplasties, pain clinic procedures, colonoscopies/benign polypectomies, bilateral cataract removals/lens implants, PICC line. Past Anesthesia/Blood Transfusion Reactions: No Reported Reaction Past Psychological History: No Psychological Hx Reported Smoking Status: Never smoker Past Alcohol Use History: Rare Past Drug Use History: None Reported - Past Family History Mother Family Medical History: Cancer Additional Family Medical History / Comment(s): BREAST CANCER. at 28 years old Father Family Medical History: Cancer Additional Family Medical History / Comment(s): LIVER CANCER/HEART PROBLEMS. Son(s) Family Medical History: Cancer Additional Family Medical History / Comment(s): MULTIPLE MYELOMA/bone cancer- PASSED 2015. Medications and Allergies Home Medications Medication Instructions Recorded Confirmed Type atenoloL 25 mg PO BID 01/18/17 04/18/23 History hydrALAZINE HCL 25 mg PO BID 01/18/17 04/18/23 History HYDROcodone/APAP 10-325MG [[place] 1 tab PO Q8HR PRN 02/21/17 04/18/23 History 10-325] Montelukast [Singulair] 10 mg PO DAILY 08/18/19 04/18/23 History Potassium Chloride [K-Tab ER] 10 meq PO DAILY 08/18/19 04/18/23 History Simvastatin [Zocor] 20 mg PO HS 08/18/19 04/18/23 History FLUoxetine HCL [PROzac] 10 mg PO DAILY 09/24/22 04/18/23 History Cephalexin [Keflex] 500 mg PO Q8HR 04/18/23 04/18/23 History Ergocalciferol (Vitamin D2) 1,250 mcg PO THAPA 04/18/23 04/18/23 History [Drisdol (50,000 Iu)] Allergies Allergy/AdvReac Type Severity Reaction Status Date / Time adhesive tape Allergy Unknown Rash/Hives Verified 04/18/23 12:16 Sulfa (Sulfonamide Allergy Rash/Hives Verified 04/18/23 12:16 Antibiotics) Surgical - Exam Vital Signs Temp Pulse Resp BP Pulse Ox 98.1 F 66 20 114/68 96 04/18/23 09:27 04/18/23 09:27 04/18/23 09:27 04/18/23 09:27 04/18/23 09:27 General appearance: The patient is alert, oriented, appears in no acute distress. Obese. HET: Head is normocephalic and atraumatic. Pupils are equal and reactive. Neck: Supple. Heart: Regular. Lungs: Equal expansion, normal respiratory effort. Abdomen: Soft, nontender, nondistended. Extremities: Bilateral lower extremity swelling, right greater than left. Right lower extremity wrapped with Daniel wrap with marked area of erythema up to the thigh. She has palpable DP pulses with good capillary refill. Neurological: No focal deficits. Results - Labs 04/20/23 10:25 04/20/23 05:54 Abnormal Lab Results - Last 24 Hours (Table) 04/20/23 Range/Units 10:25 RBC 3.44 L (3.80-5.40) m/uL Hgb 11.0 L (11.4-16.0) gm/dL MCV 103.5 H (80.0-100.0) fL MCHC 30.9 L (31.0-37.0) g/dL Lymphocytes # 0.9 L (1.0-4.8) k/uL Microbiology - Last 24 Hours (Table) 04/18/23 10:46 Blood Culture - Preliminary Blood 04/18/23 10:46 Blood Culture - Preliminary Blood Diabetes panel 04/20/23 Range/Units 05:54 Creatinine 0.92 (0.52-1.04) mg/dL Pituitary panel 04/20/23 Range/Units 05:54 Creatinine 0.92 (0.52-1.04) mg/dL Adrenal panel 04/20/23 Range/Units 05:54 Creatinine 0.92 (0.52-1.04) mg/dL Assessment and Plan Assessment: 1. Cellulitis 2. Right lower extremity venous ulcers 3. Venous insufficiency 4. Obesity 5. History of chronic lower extremity cellulitis/venous ulcers Plan: 1. Please obtain recent arterial duplex study from Dr. Miranda's office 2. Continue to keep compression wraps on bilateral lower extremities 3. Continue with recommendations from infectious disease 4. Recommend outpatient wound care with [facility] per patient's request 5. Further recommendations forthcoming per vascular surgeon Thank you for this consultation, we'll continue to follow. The impression and plan of care has been dictated as directed. Dr. Singh I performed a history and examination of this patient, discussed the same with the dictator. I agree with the dictator's note ,documented as a scribe. Any additional findings or plans will be noted.
--- NOTE | 2023-04-20 16:48 | P.PN ---
Subjective Progress Note Date: 04/19/23 Principal diagnosis: Right lower extremity venous stasis ulcer and cellulitis Patient is a 82-year-old female with a past medical history significant for right lower extremity venous stasis ulcer and secondary cellulitis, presented to hospital with increasing pain swelling redness right lower extremity concerning for another episode of cellulitis. On today's evaluation that is 04/19/2023, patient denies having any fever and chills, patient still complaining of pain to the right lower extremity slightly decreased in intensity, denies any chest pain or shortness of breath or abdominal pain or diarrhea Objective - Vital Signs Vital signs: Vital Signs Temp 98.2 F 04/19/23 07:00 Pulse 66 04/19/23 07:00 Resp 18 04/19/23 07:00 BP 107/53 04/19/23 07:00 Pulse Ox 98 04/19/23 07:00 FiO2 Intake & Output 04/18/23 04/19/23 04/19/23 18:59 06:59 18:59 Weight 97.522 kg Other: Voiding Method Toilet # Voids 2 - Exam GENERAL DESCRIPTION: An elderly female up in the chair in no distress RESPIRATORY SYSTEM: Unlabored breathing , decreased breath sounds at bases HEART: S1 S2 regular rate and rhythm , ABDOMEN: Soft , no tenderness EXTREMITIES: Right lower extremity with superficial ulceration and slough tissue surrounding redness - Labs CBC & Chem 7: 04/20/23 10:25 04/20/23 05:54 Labs: Abnormal Lab Results - Last 24 Hours (Table) 04/19/23 04/19/23 Range/Units 05:34 05:34 RBC 3.42 L (4.10-5.20) X 10*6/uL Hgb 10.8 L (12.0-15.0) d/dL Hct 35.7 L (37.2-46.3) % MCV 104.4 H (80.0-97.0) FL MCHC 30.3 L (32.0-37.0) d/dL Lymphocytes # 0.73 L (0.90-5.00) X 10*3/uL Chloride 108 H (98-107) mmol/L BUN 35 H (7-17) mg/dL Creatinine 1.07 H (0.52-1.04) mg/dL Glucose 138 H (74-99) mg/dL Total Protein 6.1 L (6.3-8.2) g/dL Albumin 3.1 L (3.5-5.0) g/dL Assessment and Plan (1) Cellulitis of right leg Current Visit: Yes Status: Acute Code(s): L03.115 - CELLULITIS OF RIGHT LOWER LIMB SNOMED Code(s): 750305431 (2) Venous stasis ulcer of right ankle with fat layer exposed Current Visit: No Status: Acute Code(s): I83.013 - VARICOSE VEINS OF RIGHT LOWER EXTREMITY WITH ULCER OF ANKLE; L97.312 - NON-PRS CHRONIC ULCER OF RIGHT ANKLE W FAT LAYER EXPOSED SNOMED Code(s): 074275985 Plan: 1patient with right lower extremity venous status ulcer secondary cellulitis likely from gram-positive skin janie gram-negative infection less likely but not excluded 2-patient with mild insufficiency and high risk of nephrotoxicity 3-patient to continue with cefepime 2 g every 12 hours 4-local wound care will be switched to Santyl followed by moist dressing to the wound with a soft tissue and triad cream in between Time with Patient: Less than 30
--- NOTE | 2023-04-20 16:49 | P.PN ---
Subjective Progress Note Date: 04/20/23 Principal diagnosis: Right lower extremity venous stasis ulcer and cellulitis Patient is a 82-year-old female with a past medical history significant for right lower extremity venous stasis ulcer and secondary cellulitis, presented to hospital with increasing pain swelling redness right lower extremity concerning for another episode of cellulitis. On today's evaluation that is 04/20/2023, patient remains to be febrile, patient pain to the right lower extremity has slightly decreased in intensity, the patient denies any chest pain or shortness of breath or abdominal pain or diarrhea Objective - Vital Signs Vital signs: Vital Signs Temp 98.6 F 04/20/23 08:00 Pulse 72 04/20/23 08:00 Resp 16 04/20/23 08:00 BP 136/48 04/20/23 08:00 Pulse Ox 97 04/20/23 03:04 FiO2 Intake & Output 04/19/23 04/20/23 04/20/23 18:59 06:59 18:59 Other: Voiding Method Toilet Toilet # Voids 2 2 - Exam GENERAL DESCRIPTION: An elderly female up in the chair in no distress RESPIRATORY SYSTEM: Unlabored breathing , decreased breath sounds at bases HEART: S1 S2 regular rate and rhythm , ABDOMEN: Soft , no tenderness EXTREMITIES: Right lower extremity with superficial ulceration and slough tissue surrounding redness - Labs CBC & Chem 7: 04/20/23 10:25 04/20/23 05:54 Labs: Abnormal Lab Results - Last 24 Hours (Table) 04/20/23 Range/Units 10:25 RBC 3.44 L (3.80-5.40) m/uL Hgb 11.0 L (11.4-16.0) gm/dL MCV 103.5 H (80.0-100.0) fL MCHC 30.9 L (31.0-37.0) g/dL Lymphocytes # 0.9 L (1.0-4.8) k/uL Microbiology - Last 24 Hours (Table) 04/18/23 10:46 Blood Culture - Preliminary Blood 04/18/23 10:46 Blood Culture - Preliminary Blood Assessment and Plan (1) Cellulitis of right leg Current Visit: Yes Status: Acute Code(s): L03.115 - CELLULITIS OF RIGHT LOWER LIMB SNOMED Code(s): 933116089 (2) Venous stasis ulcer of right ankle with fat layer exposed Current Visit: No Status: Acute Code(s): I83.013 - VARICOSE VEINS OF RIGHT LOWER EXTREMITY WITH ULCER OF ANKLE; L97.312 - NON-PRS CHRONIC ULCER OF RIGHT ANKLE W FAT LAYER EXPOSED SNOMED Code(s): 504778595 Plan: 1patient with right lower extremity venous status ulcer secondary cellulitis likely from gram-positive skin janie gram-negative infection less likely but not excluded 2-patient with mild insufficiency and high risk of nephrotoxicity 3-local wound care with Santyl followed by moist dressing to the wound with a soft tissue and triad cream in between 4-patient to continue with cefepime 2 g every 12 hours in view of clinical i mprovement Time with Patient: Less than 30
[2023-04-20] MEDS: ATORVASTATIN 10 MG TAB PO SCH (20:13)
[2023-04-21] MEDS: HYDROmorphone 0.5 MG/0.5 ML SYRINGE IVP PRN ×3 (00:43→21:19)
[2023-04-21 07:02] LABS: African American GFR (CKD) 79 (>60 ml/min/1.73 sqM); Non-African American GFR(CKD) 69 (>60 ml/min/1.73 sqM)
[2023-04-21] MEDS: CEFEPIME 2 GM in SODIUM CHLORIDE 0.9% 100 ML IVPB SCH ×2 (09:45→21:19)
[2023-04-21] MEDS: FLUoxetine HCL 10 MG CAP PO SCH (09:46)
[2023-04-21] MEDS: MONTELUKAST 10 MG TAB PO SCH (09:46)
[2023-04-21] MEDS: POTASSIUM CHLORIDE ER 10 MEQ TAB.ER.PRT PO SCH (09:46)
[2023-04-21] MEDS: HYDROPHILIC CREAM 180 GM TUBE TOPICAL SCH (09:47)
[2023-04-21] MEDS: COLLAGENASE 250 UNIT/GM OINTMENT 30 GM TUBE TOPICAL SCH (09:47)
--- NOTE | 2023-04-21 10:19 | P.PN ---
Subjective Progress Note Date: 04/21/23 Dania Vergara, is an 82-year-old female who presented to [facility] emergency room with a chief complaint of right lower extremity cellulitis with large ulcer, patient has suffered with cellulitis and recurrent ulcers on bilateral lower extremities for years. However had this time she has worsening of her lower extremity cellulitis with large ulcer was severe pain. She was evaluated in the emergency room vital examination on presentation revealed a temperature of 98.1 pulse 66 respiration 20 blood pressure 114/68 pulse ox 96% on room air Laboratory data revealed a white blood count of 8.8 hemoglobin 10.2 platelet count 286 BUN 50 creatinine 1.67 Testing in the emergency room, x-ray of the right foot and right tibia/fibula was done and there was no clear evidence of osteomyelitis at this. Patient was admitted to medical floor for further evaluation and treatment On 04/19/2023 patient was seen and examined on the medical floor she is alert and oriented 3 in no apparent distress she is still complaining of right lower extremity pain otherwise she denies any complaints there is no fever or chills no headache or dizziness no chest pain no shortness of breath no cough no nausea or vomiting no abdominal pain no diarrhea and no urinary symptoms. On 04/20/2023 patient was seen and examined on the medical floor she is alert and oriented 3 in no apparent distress she is still complaining of right lower extremity pain otherwise she denies any complaints there is no fever or chills no headache or dizziness no chest pain no shortness of breath no cough no nausea or vomiting no abdominal pain no diarrhea and no urinary symptoms On 04/21/2023 patient was seen and examined on the medical floor she is alert and oriented in no distress she is still complaining of right lower extremity pain, otherwise she denies any complaints. Case was discussed with Dr. Babin, and patient will benefit from a continued outpatient course of IV antibiotics, consult for PICC line placement was requested. Objective - Vital Signs Vital signs: Vital Signs Temp 98.3 F 04/21/23 07:39 Pulse 56 L 04/21/23 07:39 Resp 18 04/21/23 07:39 BP 101/67 04/21/23 07:39 Pulse Ox 95 04/21/23 07:39 FiO2 Intake & Output 04/20/23 04/21/23 04/21/23 18:59 06:59 18:59 Other: Voiding Method Toilet Toilet # Voids 2 2 - Exam In general patient is alert and oriented x 3 in no distress HEENT head normocephalic and atraumatic Neck is supple no JVD no goiter no lymphadenopathy no carotid bruit Chest examination is clear to auscultation no crackles no wheezing Cardiac exam reveals regular heart sounds S1 and S2 no gallops no murmurs Abdomen is soft nontender no organomegaly with normal bowel sounds Extremity exam reveals bilateral stasis changes with right lower extremity pretibial erythema and large ulcer Neurological examination reveals no gross focal deficits - Labs CBC & Chem 7: 04/20/23 10:25 04/21/23 06:19 Labs: Abnormal Lab Results - Last 24 Hours (Table) 04/20/23 Range/Units 10:25 RBC 3.44 L (3.80-5.40) m/uL Hgb 11.0 L (11.4-16.0) gm/dL MCV 103.5 H (80.0-100.0) fL MCHC 30.9 L (31.0-37.0) g/dL Lymphocytes # 0.9 L (1.0-4.8) k/uL Microbiology - Last 24 Hours (Table) 04/18/23 10:46 Blood Culture - Preliminary Blood 04/18/23 10:46 Blood Culture - Preliminary Blood Assessment and Plan Plan: Lower extremity cellulitis with ulcer Underlying history of peripheral arterial disease Underlying history of hypertension Underlying history of hyperlipidemia Underlying history of depression with anxiety disorder Underlying history of morbid obesity At this time patient is admitted to medical floor Home medications reviewed and reordered Patient was started on IV antibiotics Infectious disease consultation was requested Will follow closely
[2023-04-21 11:22] LABS: ALT 11 U/L (8-44); AST 17 U/L (13-35); Albumin 3.3 d/dL (3.8-4.9); Albumin/Globulin Ratio 1.18 Ratio (1.60-3.17); Alkaline Phosphatase 59 U/L (41-126); Blood Urea Nitrogen 19.6 mg/dL (9.0-27.0); Carbon Dioxide 21.4 mmol/L (21.6-31.8); Chloride 106 mmol/L (96-109); Globulin 2.8 d/dL (1.6-3.3); Glucose 100 mg/dL (70-110); Sodium 138 mmol/L (135-145); Total Bilirubin 0.3 mg/dL (0.3-1.2); Total Protein 6.1 d/dL (6.2-8.2)
--- NOTE | 2023-04-21 11:35 | P.PN ---
Subjective Progress Note Date: 04/21/23 Principal diagnosis: Cellulitis Patient is seen and examined today for follow-up she is sitting up in the recliner. No acute changes through the night. Patient remains afebrile. She remains on IV cefepime. Venous ultrasound of right lower extremity reviewed, showing venous reflux. Objective - Vital Signs Vital signs: Vital Signs Temp 98.3 F 04/21/23 07:39 Pulse 56 L 04/21/23 07:39 Resp 18 04/21/23 07:39 BP 101/67 04/21/23 07:39 Pulse Ox 95 04/21/23 07:39 FiO2 Intake & Output 04/20/23 04/21/23 04/21/23 18:59 06:59 18:59 Intake Total 296 Balance 296 Intake: Oral 296 Other: Voiding Method Toilet Toilet # Voids 2 2 - Exam General appearance: The patient is alert, oriented, appears in no acute dis tress. Obese. HET: Head is normocephalic and atraumatic. Pupils are equal and reactive. Neck: Supple. Heart: Regular. Lungs: Equal expansion, normal respiratory effort. Abdomen: Soft, nontender, nondistended. Extremities: Bilateral lower extremity swelling, right greater than left. Right lower extremity wrapped with Daniel wrap with marked area of erythema up to the thigh. She has palpable DP pulses with good capillary refill. Neurological: No focal deficits. - Labs CBC & Chem 7: 04/20/23 10:25 04/21/23 06:19 Labs: Abnormal Lab Results - Last 24 Hours (Table) 04/20/23 Range/Units 10:25 RBC 3.44 L (3.80-5.40) m/uL Hgb 11.0 L (11.4-16.0) gm/dL MCV 103.5 H (80.0-100.0) fL MCHC 30.9 L (31.0-37.0) g/dL Lymphocytes # 0.9 L (1.0-4.8) k/uL Microbiology - Last 24 Hours (Table) 04/18/23 10:46 Blood Culture - Preliminary Blood 04/18/23 10:46 Blood Culture - Preliminary Blood Assessment and Plan Assessment: 1. Cellulitis 2. Right lower extremity venous ulcers 3. Venous insufficiency with venous reflux 4. Obesity 5. History of chronic lower extremity cellulitis/venous ulcers Plan: 1. Continue to keep compression wraps on bilateral lower extremities 2. Continue with recommendations from infectious disease 3. Discuss with patient importance of lower extremity elevation and recommended sleeping in the bed versus a chair to help improve lower extremity swelling 4. [facility] wound care consulted to establish with patient, local wound care recommendations, and outpatient follow-up 5. No indications for any vascular surgical intervention at this time. Discuss ed with patient to follow-up in the outpatient setting and can discuss further possible intervention for venous reflux. Thank you for this consultation, we will sign off at this time. The impression and plan of care has been dictated as directed. Dr. Singh I performed a history and examination of this patient, discussed the same with the dictator. I agree with the dictator's note ,documented as a scribe. Any additional findings or plans will be noted.
[2023-04-21] MEDS: HYDROmorphone 1 MG/ML 1 ML SYRINGE IVP PRN ×2 (11:57→15:52)
[2023-04-21] MEDS: atenoloL 25 MG TAB PO SCH (15:36)
[2023-04-21] MEDS: hydrALAZINE HCL 25 MG TAB PO SCH (15:36)
[2023-04-21] MEDS: ATORVASTATIN 10 MG TAB PO SCH (21:20)
[2023-04-22] MEDS: HYDROmorphone 1 MG/ML 1 ML SYRINGE IVP PRN (01:09)
[2023-04-22] MEDS: hydrALAZINE HCL 25 MG TAB PO SCH ×2 (04:21→09:25)
[2023-04-22] MEDS: atenoloL 25 MG TAB PO SCH ×2 (04:21→09:25)
[2023-04-22] MEDS: HYDROmorphone 0.5 MG/0.5 ML SYRINGE IVP PRN ×2 (06:42→10:01)
--- NOTE | 2023-04-22 07:27 | P.PN ---
Subjective Progress Note Date: 04/21/23 Principal diagnosis: Right lower extremity venous stasis ulcer and cellulitis Patient is a 82-year-old female with a past medical history significant for right lower extremity venous stasis ulcer and secondary cellulitis, presented to hospital with increasing pain swelling redness right lower extremity concerning for another episode of cellulitis. On today's evaluation that is 04/21/2023, the patient remains to be afebrile the patient is breathing comfortably the patient right lower extremity pain and swelling has slightly decreased in intensity patient denies having nausea vomiting abdominal pain no diarrhea Objective - Vital Signs Vital signs: Vital Signs Temp 98.3 F 04/21/23 07:39 Pulse 56 L 04/21/23 07:39 Resp 18 04/21/23 07:39 BP 101/67 04/21/23 07:39 Pulse Ox 95 04/21/23 07:39 FiO2 Intake & Output 04/20/23 04/21/23 04/21/23 18:59 06:59 18:59 Intake Total 296 Balance 296 Intake: Oral 296 Other: Voiding Method Toilet Toilet # Voids 2 2 - Exam GENERAL DESCRIPTION: An elderly female up in the chair in no distress RESPIRATORY SYSTEM: Unlabored breathing , decreased breath sounds at bases HEART: S1 S2 regular rate and rhythm , ABDOMEN: Soft , no tenderness EXTREMITIES: Right lower extremity with superficial ulceration and slough tissue surrounding redness has decreased - Labs CBC & Chem 7: 04/20/23 10:25 04/21/23 06:19 Labs: Abnormal Lab Results - Last 24 Hours (Table) 04/21/23 Range/Units 06:19 Carbon Dioxide 21.4 L (21.6-31.8) mmol/L BUN/Creatinine Ratio 24.50 H (12.00-20.00) Ratio Total Protein 6.1 L (6.2-8.2) d/dL Albumin 3.3 L (3.8-4.9) d/dL Albumin/Globulin Ratio 1.18 L (1.60-3.17) Ratio Microbiology - Last 24 Hours (Table) 04/18/23 10:46 Blood Culture - Preliminary Blood 04/18/23 10:46 Blood Culture - Preliminary Blood Assessment and Plan (1) Cellulitis of right leg Current Visit: Yes Status: Acute Code(s): L03.115 - CELLULITIS OF RIGHT LOWER LIMB SNOMED Code(s): 016990455 (2) Venous stasis ulcer of right ankle with fat layer exposed Current Visit: No Status: Acute Code(s): I83.013 - VARICOSE VEINS OF RIGHT LOWER EXTREMITY WITH ULCER OF ANKLE; L97.312 - NON-PRS CHRONIC ULCER OF RIGHT ANKLE W FAT LAYER EXPOSED SNOMED Code(s): 155036716 Plan: 1patient with right lower extremity venous status ulcer secondary cellulitis likely from gram-positive skin janie gram-negative infection less likely but not excluded 2-patient with mild insufficiency and high risk of nephrotoxicity 3-local wound care with Santyl followed by moist dressing to the wound with a soft tissue and triad cream in between 4-Patient seem to have shown some clinical improvement and will continue with the IV cefepime through a midline for 10 days to finish a course of therapy and close outpatient follow-up plan of care was discussed with admitting physician Time with Patient: Less than 30
[2023-04-22 07:47] VITALS: BP 121/63; PULSE 70; RESP 20; TEMP 98.2
[2023-04-22] MEDS: CEFEPIME 2 GM in SODIUM CHLORIDE 0.9% 100 ML IVPB SCH (09:24)
[2023-04-22] MEDS: POTASSIUM CHLORIDE ER 10 MEQ TAB.ER.PRT PO SCH (09:25)
[2023-04-22] MEDS: FLUoxetine HCL 10 MG CAP PO SCH (09:25)
[2023-04-22] MEDS: HYDROPHILIC CREAM 180 GM TUBE TOPICAL SCH (09:25)
[2023-04-22] MEDS: MONTELUKAST 10 MG TAB PO SCH (09:25)
[2023-04-22] MEDS: COLLAGENASE 250 UNIT/GM OINTMENT 30 GM TUBE TOPICAL SCH (09:26)
--- NOTE | 2023-04-22 10:44 | P.DS ---
Providers Date of admission: 04/18/23 11:37 Expected date of discharge: 04/22/23 Attending physician: Ten Guerrero Consults: 04/18/23 11:37 Consult Physician Urgent Consulting Provider: Caleb Babin Consult Reason/Comments: Right lower extremity cellulitis Do you want consulting provider notified?: Yes 04/21/23 10:08 Consult Physician Routine Consulting Provider: Duy Moore Consult Reason/Comments: Picc line placement Do you want consulting provider notified?: Yes Primary care physician: Ten Guerrero [facility] Course: Discharge diagnosis Lower extremity cellulitis with ulcer Underlying history of peripheral arterial disease Underlying history of hypertension Underlying history of hyperlipidemia Underlying history of depression with anxiety disorder Underlying history of morbid obesity Hospital course Dania Vergara, is an 82-year-old female who presented to [facility] emergency room with a chief complaint of right lower extremity c ellulitis with large ulcer, patient has suffered with cellulitis and recurrent ulcers on bilateral lower extremities for years. However had this time she has worsening of her lower extremity cellulitis with large ulcer was severe pain. She was evaluated in the emergency room vital examination on presentation revealed a temperature of 98.1 pulse 66 respiration 20 blood pressure 114/68 pulse ox 96% on room air Laboratory data revealed a white blood count of 8.8 hemoglobin 10.2 platelet count 286 BUN 50 creatinine 1.67 Testing in the emergency room, x-ray of the right foot and right tibia/fibula was done and there was no clear evidence of osteomyelitis at this. Patient was admitted to medical floor for further evaluation and treatment On 04/19/2023 patient was seen and examined on the medical floor she is alert and oriented 3 in no apparent distress she is still complaining of right lower extremity pain otherwise she denies any complaints there is no fever or chills no headache or dizziness no chest pain no shortness of breath no cough no nausea or vomiting no abdominal pain no diarrhea and no urinary symptoms. On 04/20/2023 patient was seen and examined on the medical floor she is alert and oriented 3 in no apparent distress she is still complaining of right lower extremity pain otherwise she denies any complaints there is no fever or chills no headache or dizziness no chest pain no shortness of breath no cough no nausea or vomiting no abdominal pain no diarrhea and no urinary symptoms On 04/21/2023 patient was seen and examined on the medical floor she is alert and oriented in no distress she is still complaining of right lower extremity pain, otherwise she denies any complaints. Case was discussed with Dr. Babin, and patient will benefit from a continued outpatient course of IV antibiotics, consult for PICC line placement was requested. On 04/22/2023 patient is alert and oriented 3. Patient will be DC'd home with IV antibiotics PICC line in place. Home health care ordered. Per infectious disease recommended 10 days of cefepime. Patient. Last dose here. Patient denies chest pain or shortness of breath. Patient denies nausea vomiting or diarrhea. Patient denies any urinary burning or frequency Patient Condition at Discharge: Stable Plan - Discharge Summary New Discharge Prescriptions: Continue hydrALAZINE HCL 25 mg PO BID atenoloL 25 mg PO BID HYDROcodone/APAP 10-325MG [[place] 10-325] 1 tab PO Q8HR PRN PRN Reason: Pain Simvastatin [Zocor] 20 mg PO HS Montelukast [Singulair] 10 mg PO DAILY Potassium Chloride [K-Tab ER] 10 meq PO DAILY Ergocalciferol (Vitamin D2) [Drisdol (50,000 Iu)] 1,250 mcg PO THAPA FLUoxetine HCL [PROzac] 10 mg PO DAILY Discontinued Cephalexin [Keflex] 500 mg PO Q8HR Discharge Medication List atenoloL 25 mg PO BID 01/18/17 [History] hydrALAZINE HCL 25 mg PO BID 01/18/17 [History] HYDROcodone/APAP 10-325MG [[place] 10-325] 1 tab PO Q8HR PRN 02/21/17 [History] Montelukast [Singulair] 10 mg PO DAILY 08/18/19 [History] Potassium Chloride [K-Tab ER] 10 meq PO DAILY 08/18/19 [History] Simvastatin [Zocor] 20 mg PO HS 08/18/19 [History] FLUoxetine HCL [PROzac] 10 mg PO DAILY 09/24/22 [History] Ergocalciferol (Vitamin D2) [Drisdol (50,000 Iu)] 1,250 mcg PO THAPA 04/18/23 [Hi story] Follow up Appointment(s)/Referral(s): Kiki Singh DO [STAFF PHYSICIAN] - 2 Weeks [facility], [REFERRING] - 1 Week Wound Center,[facility] [NON-STAFF] - 1 Week Residential Home,[facility] [NON-STAFF] - 1 Week Ten Guerrero MD [Primary Care Provider] - 1-2 days
[2023-04-22] MEDS ORDERED: HYDROPHILIC CREAM 180 GM TUBE TOPICAL SCH (10:45)
--- NOTE | 2023-04-22 10:55 | P.CONS ---
History of Present Illness - Reason for Consult Consult date: 04/22/23 wound care - History of Present Illness This is an 82-year-old patient with known history of venous insufficiency cc of nonhealing ulceration to the right malleolus barrera lateral aspect. The ulceration measures approximately 1.1 x 1.1 x 0.1 cm with significant amount of slough and minimal granulation seen within the wound bed. Periwound shows excoriation throughout with raw open weeping skin. Patient is complaining of discomfort to the site especially with walking. At this time the patient has Daniel wrap in place. Patient has been seen in the wound care center previously however she would like to change to be seen by Dr. Rubio. Review Of Systems: Constitutional: No fever, no chills, no night sweats. No weight change. No weakness, fatigue or lethargy. No daytime sleepiness. Integumentary:reports wounds, no lesions. No rash or pruritus. No unusual bruising. No change in hair or nails. Physical exam: General Appearance: Alert, cooperative, no distress, appears stated age. Skin: See HPI all other Skin color, texture, tugor normal, no rashes or lesions. Neurologic: Alert oriented x3 Assessment: 1. Nonhealing ulceration right lower extremity with fat layer exposure 2. Chronic venous hypertension with inflammation and ulceration 3. Excoriations of the right lower extremity Plan: 1.Right ankle: Apply sanytl, saline moist gauze, dry gauze, rolled gauze, secure with tape. Apply triad to periwound. Wrap with daniel wrap. Patient would benefit from advanced wound care and wound care center she is agreeable to come to the wound care center. Patient is requesting to be seen by Dr. Rubio. Thank you for the consultation any questions to contact the wound care center DNP note has been reviewed and discussed with Dr. Mcrae and the impression and plan of care has been directed as dictated. Past Medical History Past Medical History: GERD/Reflux, Hyperlipidemia, Hypertension, Osteoarthritis (OA), Skin Disorder Additional Past Medical History / Comment(s): chronic low back/cervical and bilateral shoulder pain, benign colon polyps/diverticular disease, bilateral lower extremity cellulitis but R leg much more often, UTIs, polynephritis, hiatal hernia many years ago. History of Any Multi-Drug Resistant Organisms: None Reported Past Surgical History: Appendectomy, Cholecystectomy, Joint Replacement, Tubal Ligation Additional Past Surgical History / Comment(s): Bilateral total knee arthroplasties, pain clinic procedures, colonoscopies/benign polypectomies, bilateral cataract removals/lens implants, PICC line. Past Anesthesia/Blood Transfusion Reactions: No Reported Reaction Past Psychological History: No Psychological Hx Reported Smoking Status: Never smoker Past Alcohol Use History: Rare Past Drug Use History: None Reported - Past Family History Mother Family Medical History: Cancer Additional Family Medical History / Comment(s): BREAST CANCER. at 28 years old Father Family Medical History: Cancer Additional Family Medical History / Comment(s): LIVER CANCER/HEART PROBLEMS. Son(s) Family Medical History: Cancer Additional Family Medical History / Comment(s): MULTIPLE MYELOMA/bone cancer- PASSED 2015. Medications and Allergies Home Medications Medication Instructions Recorded Confirmed Type atenoloL 25 mg PO BID 01/18/17 04/18/23 History hydrALAZINE HCL 25 mg PO BID 01/18/17 04/18/23 History HYDROcodone/APAP 10-325MG [[place] 1 tab PO Q8HR PRN 02/21/17 04/18/23 History 10-325] Montelukast [Singulair] 10 mg PO DAILY 08/18/19 04/18/23 History Potassium Chloride [K-Tab ER] 10 meq PO DAILY 08/18/19 04/18/23 History Simvastatin [Zocor] 20 mg PO HS 08/18/19 04/18/23 History FLUoxetine HCL [PROzac] 10 mg PO DAILY 09/24/22 04/18/23 History Ergocalciferol (Vitamin D2) 1,250 mcg PO THAPA 04/18/23 04/18/23 History [Drisdol (50,000 Iu)] Cefepime [Maxipime] 2 gm IVPB Q12HR 10 Days #20 each 04/22/23 Rx Allergies Allergy/AdvReac Type Severity Reaction Status Date / Time adhesive tape Allergy Unknown Rash/Hives Verified 04/18/23 12:16 Sulfa (Sulfonamide Allergy Rash/Hives Verified 04/18/23 12:16 Antibiotics) Physical Exam Vitals: Vital Signs Temp Pulse Resp BP Pulse Ox 04/22/23 07:45 98.2 F 70 20 121/63 04/22/23 02:12 97.7 F 64 15 115/50 92 L 04/21/23 21:19 16 04/21/23 19:31 98.5 F 65 16 105/65 95 04/21/23 14:00 98.1 F 78 18 147/75 94 L Intake and Output 04/21/23 04/22/23 04/22/23 22:59 06:59 14:59 Intake Total 236 120 Balance 236 120 Intake: Oral 236 120 Other: Voiding Method Toilet # Voids 2 2 Results CBC & Chem 7: 04/20/23 10:25 04/21/23 06:19 Labs: Abnormal Lab Results - Last 24 Hours (Table) 04/21/23 Range/Units 06:19 Carbon Dioxide 21.4 L (21.6-31.8) mmol/L BUN/Creatinine Ratio 24.50 H (12.00-20.00) Ratio Total Protein 6.1 L (6.2-8.2) d/dL Albumin 3.3 L (3.8-4.9) d/dL Albumin/Globulin Ratio 1.18 L (1.60-3.17) Ratio Microbiology - Last 24 Hours (Table) 04/18/23 10:46 Blood Culture - Preliminary Blood 04/18/23 10:46 Blood Culture - Preliminary Blood Assessment and Plan (1) Non-pressure chronic ulcer of right ankle with fat layer exposed Current Visit: Yes Status: Acute Code(s): L97.312 - NON-PRS CHRONIC ULCER OF RIGHT ANKLE W FAT LAYER EXPOSED SNOMED Code(s): 78832525985285993 (2) Chronic venous hypertension (idiopathic) with ulcer and inflammation of right lower extremity Current Visit: Yes Status: Acute Code(s): I87.331 - CHRONIC VENOUS HTN W ULCER AND INFLAMMATION OF R LOW EXTREM SNOMED Code(s): 952057520114455 (3) Excoriation of right lower leg Current Visit: Yes Status: Acute Code(s): S80.811A - ABRASION, RIGHT LOWER LEG, INITIAL ENCOUNTER SNOMED Code(s): 018254552
[2023-04-23] MEDS ORDERED: COLLAGENASE 250 UNIT/GM OINTMENT 30 GM TUBE TOPICAL SCH (09:00)
[2023-04-23] MEDS ORDERED: HYDROPHILIC CREAM 180 GM TUBE TOPICAL SCH (09:00)
[2023-04-24] MEDS ORDERED: ERGOCALCIFEROL 1,250 MCG (50,000 IU) CAPSULE PO SCH (09:00)
== END 2023-04-22 14:25 | disposition home health service (06) | DRG 300 ==
LOC: EC 09:22 → 6NMEDSUR 11:37
PROVIDERS: ADMIT Internal Medicine; ATTEND Internal Medicine
DX: I70.201 Unspecified atherosclerosis of native arteries of extremities, right leg (principal); I87.331 Chronic venous hypertension (idiopathic) with ulcer and inflammation of right lower extremity; L03.115 Cellulitis of right lower limb; L97.312 Non-pressure chronic ulcer of right ankle with fat layer exposed; F41.9 Anxiety disorder, unspecified; I87.2 Venous insufficiency (chronic) (peripheral); M54.50 Low back pain, unspecified; I10 Essential (primary) hypertension; E78.5 Hyperlipidemia, unspecified; M54.2 Cervicalgia; K44.9 Diaphragmatic hernia without obstruction or gangrene; K21.9 Gastro-esophageal reflux disease without esophagitis; K57.90 Diverticulosis of intestine, part unspecified, without perforation or abscess without bleeding; G89.29 Other chronic pain; I87.8 Other specified disorders of veins; F32.A Depression, unspecified; E66.01 Morbid (severe) obesity due to excess calories; Z68.39 Body mass index [BMI] 39.0-39.9, adult; Z79.899 Other long term (current) drug therapy; Z86.010 Personal history of colon polyps; Z96.653 Presence of artificial knee joint, bilateral; Z87.440 Personal history of urinary (tract) infections; Z88.2 Allergy status to sulfonamides
CPT/HCPCS: 36410; 36415; 76937; 80053; 82565; 83605; 85025; 86140; 87040; 96365; 96366; 96367; 96375; 99284

== ENCOUNTER 2023-06-10 20:09 | Inpatient (IN) | payer MEDICARE, OTHER ==
[2023-06-10] MEDS ORDERED: SODIUM CHLORIDE 0.9% 1,000 ML IV STA (20:45)
[2023-06-10] MEDS ORDERED: SODIUM CHLORIDE 0.9% 500 ML 500 ML IV STA (20:45)
--- NOTE | 2023-06-10 20:45 | ED ---
Weakness HPI - General Chief complaint: Fall Stated complaint: Fall Time Seen by Provider: 06/10/23 20:16 Source: patient, EMS, RN notes reviewed, old records reviewed Mode of arrival: EMS Limitations: no limitations - History of Present Illness Initial comments: This is a in 82-year-old female to the ER today. Patient was on the ground for something to 12 hours today. She laid on the ground patient unable to get up after fall. This patient presents today for evaluation of fall fall with inability to get up and walk after fall. Patient has persistent weakness here in the ER. Patient is having significant left-sided knee pain hip pain from the fall. Patient is brought in by EMS for further evaluation. Patient is a mildly poor strain he does live by herself. MD Complaint: generalized weakness, lack of energy, difficulty walking -: hour(s) Location: generalized Severity: severe Quality: constant Improves with: none Worsens with: none Context: history of similar Associated Symptoms: confusion - Related Data Home Medications Medication Instructions Recorded Confirmed atenoloL 25 mg PO BID 01/18/17 06/10/23 hydrALAZINE HCL 25 mg PO BID 01/18/17 06/10/23 HYDROcodone/APAP 10-325MG [[place] 1 tab PO Q8HR PRN 02/21/17 06/10/23 10-325] Montelukast [Singulair] 10 mg PO DAILY 08/18/19 06/10/23 Potassium Chloride [K-Tab ER] 10 meq PO DAILY 08/18/19 06/10/23 Simvastatin [Zocor] 20 mg PO HS 08/18/19 06/10/23 FLUoxetine HCL [PROzac] 10 mg PO DAILY 09/24/22 06/10/23 Ergocalciferol (Vitamin D2) 1,250 mcg PO THAPA 04/18/23 06/10/23 [Drisdol (50,000 Iu)] Allergies Allergy/AdvReac Type Severity Reaction Status Date / Time adhesive tape Allergy Unknown Rash/Hives Verified 06/10/23 22:53 Sulfa (Sulfonamide Allergy Rash/Hives Verified 06/10/23 22:53 Antibiotics) Review of Systems ROS Statement: Those systems with pertinent positive or pertinent negative responses have been documented in the HPI. ROS Other: All systems not noted in ROS Statement are negative. Past Medical History Past Medical History: GERD/Reflux, Hyperlipidemia, Hypertension, Osteoarthritis (OA), Skin Disorder Additional Past Medical History / Comment(s): chronic low back/cervical and bilateral shoulder pain, benign colon polyps/diverticular disease, bilateral lower extremity cellulitis but R leg much more often, UTIs, polynephritis, hiatal hernia many years ago. History of Any Multi-Drug Resistant Organisms: None Reported Past Surgical History: Appendectomy, Cholecystectomy, Joint Replacement, Tubal Ligation Additional Past Surgical History / Comment(s): Bilateral total knee arthroplasties, pain clinic procedures, colonoscopies/benign polypectomies, bilateral cataract removals/lens implants, PICC line. Past Anesthesia/Blood Transfusion Reactions: No Reported Reaction Past Psychological History: No Psychological Hx Reported Smoking Status: Never smoker Past Alcohol Use History: Rare Past Drug Use History: None Reported - Past Family History Mother Family Medical History: Cancer Additional Family Medical History / Comment(s): BREAST CANCER. at 28 years old Father Family Medical History: Cancer Additional Family Medical History / Comment(s): LIVER CANCER/HEART PROBLEMS. Son(s) Family Medical History: Cancer Additional Family Medical History / Comment(s): MULTIPLE MYELOMA/bone cancer- PASSED 2015. General Exam Limitations: no limitations General appearance: alert, in no apparent distress, anxious, in distress, obese Head exam: Present: atraumatic, normocephalic, normal inspection Eye exam: Present: normal appearance, PERRL, EOMI. Absent: scleral icterus, conjunctival injection, periorbital swelling ENT exam: Present: normal exam, mucous membranes moist Neck exam: Present: normal inspection. Absent: tenderness, meningismus, lymphadenopathy Respiratory exam: Present: normal lung sounds bilaterally. Absent: respiratory distress, wheezes, rales, rhonchi, stridor Cardiovascular Exam: Present: regular rate, normal rhythm, normal heart sounds. Absent: systolic murmur, diastolic murmur, rubs, gallop, clicks GI/Abdominal exam: Present: soft, normal bowel sounds. Absent: distended, tenderness, guarding, rebound, rigid Extremities exam: Present: normal inspection, full ROM, normal capillary refill. Absent: tenderness, pedal edema, joint swelling, calf tenderness Back exam: Present: normal inspection Neurological exam: Present: alert, oriented X3, CN II-XII intact Psychiatric exam: Present: normal affect, normal mood Skin exam: Present: warm, dry, intact, normal color. Absent: rash Course Vital Signs 06/10/23 06/10/23 06/11/23 20:22 22:50 01:26 Temperature 97.7 F Pulse Rate 93 85 87 Pulse Rate [ Cutting Machine Offbearer ] Respiratory 18 18 16 Rate Blood Pressure 111/51 103/59 100/60 O2 Sat by Pulse 93 L 92 L 92 L Oximetry 06/11/23 02:00 Temperature Pulse Rate Pulse Rate [ 93 Cutting Machine Offbearer ] Respiratory 20 Rate Blood Pressure O2 Sat by Pulse Oximetry - Reevaluation(s) Reevaluation #1: 06/10/23 21:39 medical record is reviewed Reevaluation #2: 06/10/23 21:39 patient symptoms are unchanged Reevaluation #3: 06/11/23 01:22 Patient informed results questions answered Reevaluation #4: 06/10/23 21:39 Was pt. sent in by a medical professional or institution (, PA, SPRAY I PAINTER, urgent care, hospital, or halfway...) When possible be specific @ -no Did you speak to anyone other than the patient for history (EMS, parent, family, police, friend...)? What history was obtained from this source @ -no Did you review nursing and triage notes (agree or disagree)? Why? @ -agree Are old charts reviewed (outside hosp., previous admission, EMS record, old EKG, old radiological studies, urgent care reports/EKG's, halfway records)? Report findings @ -yes Differential Diagnosis (chest pain, altered mental status, abdominal pain women, abdominal pain men, vaginal bleeding, weakness, fever, dyspnea, syncope, headache, dizziness, GI bleed, back pain, seizure, CVA, palpatations, mental health, musculoskeletal)? @ -prior EKG interpreted by me (3pts min.). @ -yes X-rays interpreted by me (1pt min.). @ -yes CT interpreted by me (1pt min.). @ -yes U/S interpreted by me (1pt. min.). @ -no What testing was considered but not performed or refused? (CT, X-rays, U/S, labs)? Why? @ -none What meds were considered but not given or refused? Why? @ -none Did you discuss the management of the patient with other professionals (professionals i.e. , PA, SPRAY I PAINTER, lab, RT, psych nurse, social service coordinator, grinder and plater, teacher, drug abuse resistance education officer, returned case inspector)? Give summary @ -no Was smoking cessation discussed for >3mins.? @ -no Was critical care preformed (if so, how long)? @ -no Were there social determinants of health that impacted care today? How? (Homelessness, low income, unemployed, alcoholism, drug addiction, transportation, low edu. Level, literacy, decrease access to med. care, residential, rehab)? @ -none Was there de-escalation of care discussed even if they declined (Discuss DNR or withdrawal of care, Hospice)? DNR status @ -no What co-morbidities impacted this encounter? (DM, HTN, Smoking, COPD, CAD, Cancer, CVA, ARF, Chemo, Hep., AIDS, mental health diagnosis, sleep apnea, morbid obesity)? @ -none Was patient admitted / discharged? Hospital course, mention meds given and route, prescriptions, significant lab abnormalities, going to OR and other pertinent info. @ - 82 female the ER after a fall fall. Patient did sustain fracture left leg. Prosthetic fractured left leg and laid on the ground for around 12 hours at least. Patient does have significant rhabdomyolysis kidney failure pneumonia with elevated white blood cell, this patient will be admitted for IV antibiotics hydration, will also have a Singh catheter placed for accurate ins and outs and urinary tract infection possibility, and orthopedics will evaluate fracture Admitted Undiagnosed new problem with uncertain prognosis? @ -no Drug Therapy requiring intensive monitoring for toxicity (Heparin, Nitro, Insulin, Cardizem)? @ -no Were any procedures done? @ -no Diagnosis/symptom? @ -Weakness, rhabdomyolysis, left femur fracture and fall, debility Acute, or Chronic, or Acute on Chronic? @ -Acute Uncomplicated (without systemic symptoms) or Complicated (systemic symptoms)? @ -Complicated Side effects of treatment? @ -no Exacerbation, Progression, or Severe Exacerbation? @ -exacerbation Poses a threat to life or bodily function? How? (Chest pain, USA, NM, pneumonia, PE, COPD, DKA, ARF, appy, cholecystitis, CVA, Diverticulitis, Homicidal, Suicidal, threat to staff... and all critical care pts) @ -yes with severe debility and inability to ambulate, possibility of renal failure with infections Reevaluation #5: 06/10/23 21:39 Differential Weakness: Hypoglycemia, shock, sepsis, hyponatremia, anemia, infection, NM, ETOH, adverse medicine reaction, overdose, stroke, this is not meant to be an all-inclusive list. - Consultations Consultation #1: Spoke with Dr. Encarnacion was okayed observation is patient at the hospital Consultation #2: Spoke with Dr. Silverman will admit this patient EKG Findings - EKG Comments: EKG Findings:: EKG is sinus tachycardia 91 UT 185 QRS 86 QTc 445 Medical Decision Making - Medical Decision Making 82 female the ER after a fall fall. Patient did sustain fracture left leg. Prosthetic fractured left leg and laid on the ground for around 12 hours at least. Patient does have significant rhabdomyolysis kidney failure pneumonia with elevated white blood cell, this patient will be admitted for IV antibiotics hydration, will also have a Singh catheter placed for accurate ins and outs and urinary tract infection possibility, and orthopedics will evaluate fracture - Lab Data Result diagrams: 06/18/23 09:33 06/18/23 09:33 Lab Results 06/10/23 06/10/23 06/10/23 Range/Units 21:24 21:24 21:24 WBC 31.2 H (3.8-10.6) k/uL RBC 3.84 (3.80-5.40) m/uL Hgb 12.2 (11.4-16.0) gm/dL Hct 37.9 (34.0-46.0) % MCV 98.7 (80.0-100.0) fL MCH 31.8 (25.0-35.0) pg MCHC 32.2 (31.0-37.0) g/dL RDW 13.8 (11.5-15.5) % Plt Count 197 (150-450) k/uL MPV 8.2 Neutrophils % (Manual) 86 % Band Neuts % (Manual) 7 % Lymphocytes % (Manual) 3 % Monocytes % (Manual) 3 % Metamyelocytes % 2 % Neutrophils # (Manual) 29.00 H (1.3-7.7) k/uL Lymphocytes # (Manual) 0.94 L (1.0-4.8) k/uL Monocytes # (Manual) 0.94 (0-1.0) k/uL Metamyelocytes # (Man) 0.62 H (0) k/uL Nucleated RBCs 0 (0-0) /100 WBC Manual Slide Review Performed Polychromasia Present PT (9.0-12.0) sec INR (<1.2) APTT (22.0-30.0) sec Sodium 136 L (137-145) mmol/L Potassium 3.9 (3.5-5.1) mmol/L Chloride 97 L (98-107) mmol/L Carbon Dioxide 25 (22-30) mmol/L Anion Gap 14 mmol/L BUN 33 H (7-17) mg/dL Creatinine 2.66 H (0.52-1.04) mg/dL Est GFR (CKD-EPI)AfAm 18 (>60 ml/min/1.73 sqM) Est GFR (CKD-EPI)NonAf 16 (>60 ml/min/1.73 sqM) Glucose 131 H (74-99) mg/dL Lactic Ac Sepsis Rflx Plasma Lactic Acid [place] (0.7-2.0) mmol/L Calcium 7.6 L (8.4-10.2) mg/dL Phosphorus 5.7 H (2.5-4.5) mg/dL Magnesium 1.9 (1.6-2.3) mg/dL Total Bilirubin 0.7 (0.2-1.3) mg/dL AST 694 H (14-36) U/L ALT 114 H (4-34) U/L Alkaline Phosphatase 120 (38-126) U/L Creatine Kinase 04566 H* (30-135) U/L CK-MB (CK-2) 117.0 H (0.0-3.4) ng/mL Troponin I 0.127 H* (0.000-0.034) ng/mL NT-Pro-B Natriuret Pep 89792 pg/mL Total Protein 6.1 L (6.3-8.2) g/dL Albumin 2.9 L (3.5-5.0) g/dL TSH 2.910 (0.465-4.680) mIU/L Urine Color Urine Appearance (Clear) Urine pH (5.0-8.0) Ur Specific [place] (1.001-1.035) Urine Protein (Negative) Urine Glucose (UA) (Negative) Urine Ketones (Negative) Urine Blood (Negative) Urine Nitrite (Negative) Urine Bilirubin (Negative) Urine Urobilinogen (<2.0) mg/dL Ur Leukocyte Esterase (Negative) Urine RBC (0-5) /hpf Urine WBC (0-5) /hpf Urine WBC Clumps (None) /hpf Ur Squamous Epith Cells (0-4) /hpf Urine Bacteria (None) /hpf Urine Mucus (None) /hpf 06/10/23 06/10/23 06/10/23 Range/Units 21:24 21:24 23:32 WBC (3.8-10.6) k/uL RBC (3.80-5.40) m/uL Hgb (11.4-16.0) gm/dL Hct (34.0-46.0) % MCV (80.0-100.0) fL MCH (25.0-35.0) pg MCHC (31.0-37.0) g/dL RDW (11.5-15.5) % Plt Count (150-450) k/uL MPV Neutrophils % (Manual) % Band Neuts % (Manual) % Lymphocytes % (Manual) % Monocytes % (Manual) % Metamyelocytes % % Neutrophils # (Manual) (1.3-7.7) k/uL Lymphocytes # (Manual) (1.0-4.8) k/uL Monocytes # (Manual) (0-1.0) k/uL Metamyelocytes # (Man) (0) k/uL Nucleated RBCs (0-0) /100 WBC Manual Slide Review Polychromasia PT 10.8 (9.0-12.0) sec INR 1.0 (<1.2) APTT 25.1 (22.0-30.0) sec Sodium (137-145) mmol/L Potassium (3.5-5.1) mmol/L Chloride (98-107) mmol/L Carbon Dioxide (22-30) mmol/L Anion Gap mmol/L BUN (7-17) mg/dL Creatinine (0.52-1.04) mg/dL Est GFR (CKD-EPI)AfAm (>60 ml/min/1.73 sqM) Est GFR (CKD-EPI)NonAf (>60 ml/min/1.73 sqM) Glucose (74-99) mg/dL Lactic Ac Sepsis Rflx Y Plasma Lactic Acid [place] 2.7 H* (0.7-2.0) mmol/L Calcium (8.4-10.2) mg/dL Phosphorus (2.5-4.5) mg/dL Magnesium (1.6-2.3) mg/dL Total Bilirubin (0.2-1.3) mg/dL AST (14-36) U/L ALT (4-34) U/L Alkaline Phosphatase (38-126) U/L Creatine Kinase (30-135) U/L CK-MB (CK-2) (0.0-3.4) ng/mL Troponin I (0.000-0.034) ng/mL NT-Pro-B Natriuret Pep pg/mL Total Protein (6.3-8.2) g/dL Albumin (3.5-5.0) g/dL TSH (0.465-4.680) mIU/L Urine Color Urine Appearance (Clear) Urine pH (5.0-8.0) Ur Specific [place] (1.001-1.035) Urine Protein (Negative) Urine Glucose (UA) (Negative) Urine Ketones (Negative) Urine Blood (Negative) Urine Nitrite (Negative) Urine Bilirubin (Negative) Urine Urobilinogen (<2.0) mg/dL Ur Leukocyte Esterase (Negative) Urine RBC (0-5) /hpf Urine WBC (0-5) /hpf Urine WBC Clumps (None) /hpf Ur Squamous Epith Cells (0-4) /hpf Urine Bacteria (None) /hpf Urine Mucus (None) /hpf 06/11/23 Range/Units 01:13 WBC (3.8-10.6) k/uL RBC (3.80-5.40) m/uL Hgb (11.4-16.0) gm/dL Hct (34.0-46.0) % MCV (80.0-100.0) fL MCH (25.0-35.0) pg MCHC (31.0-37.0) g/dL RDW (11.5-15.5) % Plt Count (150-450) k/uL MPV Neutrophils % (Manual) % Band Neuts % (Manual) % Lymphocytes % (Manual) % Monocytes % (Manual) % Metamyelocytes % % Neutrophils # (Manual) (1.3-7.7) k/uL Lymphocytes # (Manual) (1.0-4.8) k/uL Monocytes # (Manual) (0-1.0) k/uL Metamyelocytes # (Man) (0) k/uL Nucleated RBCs (0-0) /100 WBC Manual Slide Review Polychromasia PT (9.0-12.0) sec INR (<1.2) APTT (22.0-30.0) sec Sodium (137-145) mmol/L Potassium (3.5-5.1) mmol/L Chloride (98-107) mmol/L Carbon Dioxide (22-30) mmol/L Anion Gap mmol/L BUN (7-17) mg/dL Creatinine (0.52-1.04) mg/dL Est GFR (CKD-EPI)AfAm (>60 ml/min/1.73 sqM) Est GFR (CKD-EPI)NonAf (>60 ml/min/1.73 sqM) Glucose (74-99) mg/dL Lactic Ac Sepsis Rflx Plasma Lactic Acid [place] (0.7-2.0) mmol/L Calcium (8.4-10.2) mg/dL Phosphorus (2.5-4.5) mg/dL Magnesium (1.6-2.3) mg/dL Total Bilirubin (0.2-1.3) mg/dL AST (14-36) U/L ALT (4-34) U/L Alkaline Phosphatase (38-126) U/L Creatine Kinase (30-135) U/L CK-MB (CK-2) (0.0-3.4) ng/mL Troponin I (0.000-0.034) ng/mL NT-Pro-B Natriuret Pep pg/mL Total Protein (6.3-8.2) g/dL Albumin (3.5-5.0) g/dL TSH (0.465-4.680) mIU/L Urine Color Red Urine Appearance Turbid H (Clear) Urine pH 5.5 (5.0-8.0) Ur Specific [place] 1.015 (1.001-1.035) Urine Protein 2+ H (Negative) Urine Glucose (UA) Negative (Negative) Urine Ketones Negative (Negative) Urine Blood Large H (Negative) Urine Nitrite Negative (Negative) Urine Bilirubin Negative (Negative) Urine Urobilinogen <2.0 (<2.0) mg/dL Ur Leukocyte Esterase Large H (Negative) Urine RBC 30 H (0-5) /hpf Urine WBC >182 H (0-5) /hpf Urine WBC Clumps Many H (None) /hpf Ur Squamous Epith Cells 12 H (0-4) /hpf Urine Bacteria Many H (None) /hpf Urine Mucus Rare H (None) /hpf - Radiology Data Radiology results: report reviewed (X-ray chest pelvis and knee show left periprosthetic fracture), image reviewed Critical Care Time Critical Care Time: Yes Total Critical Care Time: 31 Disposition Clinical Impression: Left femoral shaft fracture, ISAURO (acute kidney injury), Rhabdomyolysis, Leukocytosis, Pneumonia, Fall, Cellulitis, Cellulitis of right leg, Obesity (BMI 30-39.9), Urinary tract infection Narrative: Periprosthetic Fracture L Knee Disposition: ADMITTED IP TO THIS HOSP Condition: Serious Is patient prescribed a controlled substance at d/c from ED?: No Time of Disposition: 01:05
--- NOTE | 2023-06-10 21:17 | XR ---
EXAMINATION TYPE: XR chest 1V DATE OF EXAM: 06/10/2023 COMPARISON: 03/28/2019 HISTORY: 82-year-old female with fall and left hip pain TECHNIQUE: Single frontal view of the chest is obtained. FINDINGS: Heart is enlarged. Interstitial prominence. Patchy peripheral right basilar opacity. Chron ic full-thickness rotator cuff tears in both sides. No pleural effusion. IMPRESSION: 1. Cardiomegaly and chronic bilateral full-thickness rotator cuff tears. 2. Patchy peripheral right basilar atelectasis versus infiltrate/pneumonia. Clinically correlate.
--- NOTE | 2023-06-10 21:20 | XR ---
EXAMINATION TYPE: XR AP view pelvis and 2 views left hip DATE OF EXAM: 06/10/2023 Comparison: None Clinical History: 82-year-old female pain after fall Findings: Osteopenia. SI joints are symmetric and intact. Pubic symphysis is intact. Limited assessment of the right femoral neck due to external rotation at the hip during imaging. The degree of osteopenia limit s assessment for a nondisplaced fracture. No displaced left hip fracture is seen. Impression: The degree of osteopenia limits assessment for nondisplaced fractures. No displaced fracture is seen. If the patient is nonweightbearing, she should be viewed with suspicion and MRI can provide more sen sitive evaluation. Limited assessment of the right femoral neck to suboptimal positioning.
--- NOTE | 2023-06-10 21:23 | XR ---
EXAMINATION TYPE: XR knee complete LT DATE OF EXAM: 06/10/2023 COMPARISON: 12/15/2013 HISTORY: 82-year-old female with fall and left hip pain TECHNIQUE: 3 views FINDINGS: Small joint effusion. Generalized soft tissue swelling. Osteopenia. A slight gap between the anterior aspect of the femoral component and the underlying anterior femoral cortex seems to have an present in 2013 as well. Rounded soft tissue density medially. Possible step-off along the medial distal femo ral metadiaphyseal cortex. IMPRESSION: Small joint effusion. Generalized soft tissue swelling but with more focal soft tissue density medial ly, possible hematoma. Unable to exclude a small periprosthetic fracture along the medial aspect of t he distal femoral component seen on the AP view.
[2023-06-10 22:20] LABS: HCT 37.9 % (34.0-46.0); HGB 12.2 gm/dL (11.4-16.0); MCH 31.8 pg (25.0-35.0); MCHC 32.2 g/dL (31.0-37.0); MCV 98.7 fL (80.0-100.0); Mean Platelet Volume 8.2; Platelet Count 197 k/uL (150-450); RBC 3.84 m/uL (3.80-5.40); RDW 13.8 % (11.5-15.5); WBC 31.2 k/uL (3.8-10.6)
[2023-06-10 22:27] LABS: Partial Thromboplastin Time 25.1 sec (22.0-30.0); Prothrombin Time 10.8 sec (9.0-12.0)
[2023-06-10 22:36] LABS: ALT 114 U/L (4-34); AST 694 U/L (14-36); Albumin 2.9 g/dL (3.5-5.0); Alkaline Phosphatase 120 U/L (38-126); Anion Gap 14 mmol/L; Blood Urea Nitrogen 33 mg/dL (7-17); Calcium 7.6 mg/dL (8.4-10.2); Carbon Dioxide 25 mmol/L (22-30); Chloride 97 mmol/L (98-107); Glucose 131 mg/dL (74-99); Magnesium 1.9 mg/dL (1.6-2.3); Phosphorus 5.7 mg/dL (2.5-4.5); Potassium 3.9 mmol/L (3.5-5.1); Sodium 136 mmol/L (137-145); Total Bilirubin 0.7 mg/dL (0.2-1.3); Total Protein 6.1 g/dL (6.3-8.2)
[2023-06-10 22:41] LABS: African American GFR (CKD) 18 (>60 ml/min/1.73 sqM); Non-African American GFR(CKD) 16 (>60 ml/min/1.73 sqM)
[2023-06-10 22:45] LABS: NT-Pro-B-Type Natriuretic Pept 17700 pg/mL
[2023-06-10 22:55] LABS: Band Neutrophils % 7 %; Lymphocytes # (M) 0.94 k/uL (1.0-4.8); Metamyelocytes # (M) 0.62 k/uL (0); Metamyelocytes % 2 %; Monocytes # (M) 0.94 k/uL (0-1.0); Neutrophils % (M) 86 %; Nucleated Red Blood Cells 0 /100 WBC (0-0); Total Cells Counted 200
[2023-06-10 22:56] LABS: Polychromasia Present
[2023-06-10] MEDS ORDERED: AZITHROMYCIN 500 MG in SODIUM CHLORIDE 0.9% 250 ML IVPB STA (22:57)
[2023-06-10 23:31] LABS: Creatine Kinase 42948 U/L (30-135)
[2023-06-10 23:32] LABS: Troponin I 0.127 ng/mL (0.000-0.034)
[2023-06-11] MEDS ORDERED: NALOXONE 0.4 MG/ML 1 ML VIAL IV PRN (01:26)
[2023-06-11] MEDS ORDERED: ONDANSETRON 4 MG/2 ML VIAL IVP PRN (01:26)
[2023-06-11] MEDS ORDERED: HYDROmorphone 1 MG/ML 1 ML SYRINGE IVP STA (01:26)
--- NOTE | 2023-06-11 01:28 | CT ---
EXAM: CT Left Lower Extremity Without Intravenous Contrast CLINICAL HISTORY: ITS.REASON CT Reason: fx TECHNIQUE: Axial computed tomography images of the left lower extremity without intravenous contrast. CTDI is 28.5 mGy and DLP is 1776.5 mGy-cm. This CT exam was performed using one or more of the following dose reduction techniques: automated exposure control, adjustment of the mA and/or kV according to patient size, and/or use of iterative reconstruction technique. COMPARISON: No relevant prior studies available. FINDINGS: Bones/joints: No acute fracture. No dislocation. Total knee arthroplasty hardware intact. Soft tissues: Joint effusion. IMPRESSION: No acute osseous findings. Joint effusion.
[2023-06-11 01:40] LABS: Appearance,Urine Turbid (Clear); Bacteria,Urine Many /hpf; Bilirubin,Urine Negative (Negative); Blood,Urine Large (Negative); Color,Urine Red; Glucose,Urine (UA) Negative (Negative); Ketones,Urine Negative (Negative); Leukocyte Esterase,Urine Large (Negative); Mucus,Urine Rare /hpf; Nitrite,Urine Negative (Negative); PH, Urine 5.5 (5.0-8.0); Protein,Urine 2+ (Negative); RBC,Urine 30 /hpf (0-5); Specific Gravity,Urine 1.015 (1.001-1.035); Squamous Epithelial Cell,Urine 12 /hpf (0-4); Urobilinogen,Urine <2.0 mg/dL (<2.0); WBC,Urine >182 /hpf (0-5)
--- NOTE | 2023-06-11 02:16 | CT ---
EXAM: CT Right Lower Extremity Without Intravenous Contrast CLINICAL HISTORY: ITS.REASON CT Reason: FALL TECHNIQUE: Axial computed tomography images of the right lower extremity without intravenous contrast. CTDI is 15 mGy and DLP is 150 mGy-cm. This CT exam was performed using one or more of the following dose reduction techniques: automated exposure control, adjustment of the mA and/or kV according to patient size, and/or use of iterative reconstruction technique. COMPARISON: No relevant prior studies available. FINDINGS: Bones/joints: No acute fracture. No dislocation. Soft tissues: Joint effusion. IMPRESSION: No acute osseous abnormalities. Joint effusion.
[2023-06-11] MEDS: SODIUM CHLORIDE 0.9% 1,000 ML IV SCH ×3 (04:35→17:47)
--- NOTE | 2023-06-11 08:26 | P.CNOR ---
History of Present Illness - [facility] Consult date: 06/11/23 Consult reason: joint pain History of present illness: The patient is an 82-year-old female who is a community ambulator with a walker presents after falling at home yesterday. She notes she lives alone. She was unable to get up on her own. Eventually she was brought to the emergency room. She was noted to have rhabdomyolysis. She complains of left knee pain. Review of Systems As per [facility] Past Medical History Past Medical History: Hyperlipidemia, Hypertension, Osteoarthritis (OA), Skin Disorder, Vascular Disorder Additional Past Medical History / Comment(s): chronic low back/cervical and bilateral shoulder pain, benign colon polyps/diverticular disease, bilateral lower extremity cellulitis but R leg much more often, UTIs, polynephritis, hiatal hernia many years ago. History of Any Multi-Drug Resistant Organisms: None Reported Past Surgical History: Appendectomy, Cholecystectomy, Joint Replacement, Tubal Ligation Additional Past Surgical History / Comment(s): Bilateral total knee arthroplasties, pain clinic procedures, colonoscopies/benign polypectomies, bilateral cataract removals/lens implants, PICC line. Past Anesthesia/Blood Transfusion Reactions: No Reported Reaction Past Psychological History: No Psychological Hx Reported Additional Psychological History / Comment(s): Pt resides alone with her dog. She uses a cane to ambulate. She drives. Her son lives across from her. Smoking Status: Never smoker Past Alcohol Use History: Rare Past Drug Use History: None Reported - Past Family History Mother Family Medical History: Cancer Additional Family Medical History / Comment(s): BREAST CANCER. at 28 years old Father Family Medical History: Cancer Additional Family Medical History / Comment(s): LIVER CANCER/HEART PROBLEMS. Son(s) Family Medical History: Cancer Additional Family Medical History / Comment(s): MULTIPLE MYELOMA/bone cancer- PASSED 2015. Medications and Allergies Home Medications Medication Instructions Recorded Confirmed Type atenoloL 25 mg PO BID 01/18/17 06/10/23 History hydrALAZINE HCL 25 mg PO BID 01/18/17 06/10/23 History HYDROcodone/APAP 10-325MG [[place] 1 tab PO Q8HR PRN 02/21/17 06/10/23 History 10-325] Montelukast [Singulair] 10 mg PO DAILY 08/18/19 06/10/23 History Potassium Chloride [K-Tab ER] 10 meq PO DAILY 08/18/19 06/10/23 History Simvastatin [Zocor] 20 mg PO HS 08/18/19 06/10/23 History FLUoxetine HCL [PROzac] 10 mg PO DAILY 09/24/22 06/10/23 History Ergocalciferol (Vitamin D2) 1,250 mcg PO THAPA 04/18/23 06/10/23 History [Drisdol (50,000 Iu)] Allergies Allergy/AdvReac Type Severity Reaction Status Date / Time adhesive tape Allergy Unknown Rash/Hives Verified 06/10/23 22:53 Sulfa (Sulfonamide Allergy Rash/Hives Verified 06/10/23 22:53 Antibiotics) Physical Examination - Knee left Appearance: effusion Effusion grade: grade 1 Tenderness with palpation: lateral Pain: throughout ROM Gait: other (Nonweightbearing) ROM: extension: 0 degrees ROM: flexion: 50 degrees Strength: extension: 5/5 Strength: flexion: 5/5 Stability exam: medial: grade 1 (Mild varus and valgus laxity), lateral: grade 1 Results The patient is a well-developed well-nourished female of endomorphic habitus. She is alert and oriented 3. She participates with examination. She is nontender about the cervical thoracic and lumbar spine. No point tenderness but the upper extremities noted. The pelvis is stable external rotation stress. She has pain with log roll of both hips. On the left knee, she has a mild effusion. She's tender about the lateral greater the medial joint line. She does have some varus and valgus laxity. There is no warmth or erythema. Compartments are soft. She is nontender about the right knee. She does have a right lower extremity dressing for treatment of her cellulitis. - Labs Labs: Abnormal Lab Results - Last 24 Hours (Table) 06/10/23 06/10/23 06/10/23 Range/Units 21:24 21:24 21:24 WBC 31.2 H (3.8-10.6) k/uL Neutrophils # (Manual) 29.00 H (1.3-7.7) k/uL Lymphocytes # (Manual) 0.94 L (1.0-4.8) k/uL Metamyelocytes # (Man) 0.62 H (0) k/uL Sodium 136 L (137-145) mmol/L Chloride 97 L (98-107) mmol/L BUN 33 H (7-17) mg/dL Creatinine 2.66 H (0.52-1.04) mg/dL Glucose 131 H (74-99) mg/dL Plasma Lactic Acid [place] (0.7-2.0) mmol/L Calcium 7.6 L (8.4-10.2) mg/dL Phosphorus 5.7 H (2.5-4.5) mg/dL AST 694 H (14-36) U/L ALT 114 H (4-34) U/L Creatine Kinase 59666 H* (30-135) U/L CK-MB (CK-2) 117.0 H (0.0-3.4) ng/mL Troponin I 0.127 H* (0.000-0.034) ng/mL Total Protein 6.1 L (6.3-8.2) g/dL Albumin 2.9 L (3.5-5.0) g/dL Urine Appearance (Clear) Urine Protein (Negative) Urine Blood (Negative) Ur Leukocyte Esterase (Negative) Urine RBC (0-5) /hpf Urine WBC (0-5) /hpf Urine WBC Clumps (None) /hpf Ur Squamous Epith Cells (0-4) /hpf Urine Bacteria (None) /hpf Urine Mucus (None) /hpf 06/10/23 06/11/23 06/11/23 Range/Units 21:24 01:13 03:23 WBC (3.8-10.6) k/uL Neutrophils # (Manual) (1.3-7.7) k/uL Lymphocytes # (Manual) (1.0-4.8) k/uL Metamyelocytes # (Man) (0) k/uL Sodium (137-145) mmol/L Chloride (98-107) mmol/L BUN (7-17) mg/dL Creatinine (0.52-1.04) mg/dL Glucose (74-99) mg/dL Plasma Lactic Acid [place] 2.7 H* 2.1 H* (0.7-2.0) mmol/L Calcium (8.4-10.2) mg/dL Phosphorus (2.5-4.5) mg/dL AST (14-36) U/L ALT (4-34) U/L Creatine Kinase (30-135) U/L CK-MB (CK-2) (0.0-3.4) ng/mL Troponin I (0.000-0.034) ng/mL Total Protein (6.3-8.2) g/dL Albumin (3.5-5.0) g/dL Urine Appearance Turbid H (Clear) Urine Protein 2+ H (Negative) Urine Blood Large H (Negative) Ur Leukocyte Esterase Large H (Negative) Urine RBC 30 H (0-5) /hpf Urine WBC >182 H (0-5) /hpf Urine WBC Clumps Many H (None) /hpf Ur Squamous Epith Cells 12 H (0-4) /hpf Urine Bacteria Many H (None) /hpf Urine Mucus Rare H (None) /hpf H & H 06/10/23 Range/Units 21:24 Hgb 12.2 (11.4-16.0) gm/dL Hct 37.9 (34.0-46.0) % Coagulation 06/10/23 Range/Units 21:24 INR 1.0 (<1.2) Result Diagrams: 06/10/23 21:24 06/10/23 21:24 - Diagnostic results Knee x-ray: image reviewed (Left knee x-rays show a mildly displaced lateral condyle fracture of the distal femur. The total knee arthroplasty appears to be in good position without definite loosening or lucencies.) Assessment and Plan Assessment: Left periprosthetic lateral condyle fracture of the distal femur Right lower extremity cellulitis Plan: I talked to the patient at length regarding her condition at this point recommend conservative measures. We will order a hinged knee brace 0-30 of flexion. Once she is fitted for that, she can partial weight-bear as tolerated in the brace with a walker and assistance. She will likely need rehab placement as she lives alone.
[2023-06-11] MEDS ORDERED: atenoloL 25 MG TAB PO SCH (10:00)
--- NOTE | 2023-06-11 12:14 | P.CRDCN ---
History of Present Illness Consult date: 06/11/23 Reason for Consult (text): Elevated troponin History of present illness: This is Forest Epperson NP, I'm dictating on behalf of Dr. Daugheryt's H&P and A&P The patient was interviewed and examined. HPI: Patient is a pleasant 82-year-old female who presented to the hospital after a fall with suspected extensive down time. Upon arrival to the emergency department, the patient was found to have a distal femur fracture, rhabdomyolysis, and pneumonia. Patient was also found to have elevated troponins. Her EKG did not demonstrate any acute NM at the time. We were consulted to evaluate the patient for the elevated troponin. Patient has no significant cardiac history except for hyperlipidemia and hypertension, and does not follow with a rf technician. This morning the patient has no real complaints. She is continuing to feel some pain in her left leg. She is denying chest pain, and shortness of breath at this time. ROS: [No fever, chills, or rigors] [no cough, phlegm, or expectoration] [no nausea, vomiting, or diarrhea] [no hematuria, dysuria] [no musculoskelatal complaints] [no strokes or seizures] [no skin lesions] EXAMINATION: GENERAL: Well-appearing, well-nourished and in no acute distress. NECK: Supple without JVD or thyromegaly. LUNGS: Breath sounds clear to auscultation bilaterally. Respiration equal and unlabored. No wheezes, rales or rhonchi. HEART: Regular rate and rhythm without murmurs, rubs or gallops. S1 and S2 heard. EXTREMITIES: Normal range of motion, no edema. No clubbing or cyanosis. Peripheral pulses intact and strong. REVIEW OF LABS, ECG & MEDICAL DATA: LABS: White count 31.2, hemoglobin 12.2, platelets 197, sodium 136, potassium 3.9, B1 33, creatinine 2.66, lactic acid 2.7, calcium 7.6, phosphorus 5.7, magnesium 1.9, creatinine kinase 42,948, troponin 0.127, proBNP 17,700, TSH 2.91 EKG: Normal sinus rhythm IMAGING: Chest x-ray dated 06/10/2023 demonstrates cardiomegaly and chronic bilateral full-thickness rotator cuff tears, with patchy peripheral right basilar atelectasis versus infiltrate/pneumonia. X-ray of the pelvis and left hip dated 09/19/2023 demonstrates no displaced fracture. X-ray of the left knee dated 09/19/2023 demonstrates small joint effusion, generalized soft tissue swelling but with more focal soft tissue density medially, possible hematoma. Unable to exclude a small periprosthetic fracture along the medial aspect of the distal femoral component seen on the AP view. CT of the left femur dated 09/19/2023 demonstrates no acute osseous findings, joint effusion. VITALS: Temp 98.3, pulse 96, respirations 20, blood pressure 107/65, O2 saturation 98% on room air IMPRESSION: 1. Mechanical fall with possible fracture 2. Rhabdomyolysis 3. Acute kidney injury 4. Elevated troponin in the presence of significantly elevated CPK PLAN: Discontinue hydralazine. Start simvastatin and atenolol, patient's usual home cardiac medications. Obtain echocardiogram. Elevated troponin is likely cross-reactive due to significantly elevated CPK. Further recommendations based on patient's clinical course. Thank you for the consult and allowing us to participate in the care of this patient. Past Medical History Past Medical History: Hyperlipidemia, Hypertension, Osteoarthritis (OA), Skin Disorder, Vascular Disorder Additional Past Medical History / Comment(s): chronic low back/cervical and bilateral shoulder pain, benign colon polyps/diverticular disease, bilateral lower extremity cellulitis but R leg much more often, UTIs, polynephritis, hiatal hernia many years ago. History of Any Multi-Drug Resistant Organisms: None Reported Past Surgical History: Appendectomy, Cholecystectomy, Joint Replacement, Tubal Ligation Additional Past Surgical History / Comment(s): Bilateral total knee arthroplasties, pain clinic procedures, colonoscopies/benign polypectomies, bilateral cataract removals/lens implants, PICC line. Past Anesthesia/Blood Transfusion Reactions: No Reported Reaction Past Psychological History: No Psychological Hx Reported Additional Psychological History / Comment(s): Pt resides alone with her dog. She uses a cane to ambulate. She drives. Her son lives across from her. Smoking Status: Never smoker Past Alcohol Use History: Rare Past Drug Use History: None Reported - Past Family History Mother Family Medical History: Cancer Additional Family Medical History / Comment(s): BREAST CANCER. at 28 years old Father Family Medical History: Cancer Additional Family Medical History / Comment(s): LIVER CANCER/HEART PROBLEMS. Son(s) Family Medical History: Cancer Additional Family Medical History / Comment(s): MULTIPLE MYELOMA/bone cancer- PASSED 2015. Medications and Allergies Home Medications Medication Instructions Recorded Confirmed Type atenoloL 25 mg PO BID 01/18/17 06/10/23 History hydrALAZINE HCL 25 mg PO BID 01/18/17 06/10/23 History HYDROcodone/APAP 10-325MG [[place] 1 tab PO Q8HR PRN 02/21/17 06/10/23 History 10-325] Montelukast [Singulair] 10 mg PO DAILY 08/18/19 06/10/23 History Potassium Chloride [K-Tab ER] 10 meq PO DAILY 08/18/19 06/10/23 History Simvastatin [Zocor] 20 mg PO HS 08/18/19 06/10/23 History FLUoxetine HCL [PROzac] 10 mg PO DAILY 09/24/22 06/10/23 History Ergocalciferol (Vitamin D2) 1,250 mcg PO THAPA 04/18/23 06/10/23 History [Drisdol (50,000 Iu)] Allergies Allergy/AdvReac Type Severity Reaction Status Date / Time adhesive tape Allergy Unknown Rash/Hives Verified 06/10/23 22:53 Sulfa (Sulfonamide Allergy Rash/Hives Verified 06/10/23 22:53 Antibiotics) Physical Exam Vitals: Vital Signs Temp Pulse Pulse Resp BP BP Pulse Ox 06/11/23 08:00 98.3 F 96 20 107/65 98 06/11/23 03:33 92 18 116/58 92 L 06/11/23 02:30 98.1 F 93 20 128/59 91 L 06/11/23 02:00 93 20 06/11/23 01:26 87 16 100/60 92 L 06/10/23 22:50 85 18 103/59 92 L 06/10/23 20:22 97.7 F 93 18 111/51 93 L Intake and Output 06/10/23 06/11/23 06/11/23 22:59 06:59 14:59 Intake Total 240 Output Total 300 Balance -300 240 Intake: Oral 240 Output: Urine 300 Uretheral (Singh) 300 Other: Voiding Method Indwelling Catheter Indwelling Catheter Weight 98.43 kg 98.43 kg 98.43 kg Results 06/10/23 21:24 06/10/23 21:24 Cardiac Enzymes 06/10/23 06/10/23 Range/Units 21:24 21:24 AST 694 H (14-36) U/L CK-MB (CK-2) 117.0 H (0.0-3.4) ng/mL Troponin I 0.127 H* (0.000-0.034) ng/mL Coagulation 06/10/23 Range/Units 21:24 PT 10.8 (9.0-12.0) sec APTT 25.1 (22.0-30.0) sec CBC 06/10/23 Range/Units 21:24 WBC 31.2 H (3.8-10.6) k/uL RBC 3.84 (3.80-5.40) m/uL Hgb 12.2 (11.4-16.0) gm/dL Hct 37.9 (34.0-46.0) % Plt Count 197 (150-450) k/uL Comprehensive Metabolic Panel 06/10/23 Range/Units 21:24 Sodium 136 L (137-145) mmol/L Potassium 3.9 (3.5-5.1) mmol/L Chloride 97 L (98-107) mmol/L Carbon Dioxide 25 (22-30) mmol/L BUN 33 H (7-17) mg/dL Creatinine 2.66 H (0.52-1.04) mg/dL Glucose 131 H (74-99) mg/dL Calcium 7.6 L (8.4-10.2) mg/dL AST 694 H (14-36) U/L ALT 114 H (4-34) U/L Alkaline Phosphatase 120 (38-126) U/L Total Protein 6.1 L (6.3-8.2) g/dL Albumin 2.9 L (3.5-5.0) g/dL Current Medications Generic Name Dose Route Start Last Admin Trade Name Freq PRN Reason Stop Dose Admin Atenolol 25 mg 06/11/23 10:00 06/11/23 10:33 Atenolol 25 Mg Tab PO 25 mg BID LOIDA Administration Atorvastatin Calcium 20 mg 06/11/23 21:00 Atorvastatin 20 Mg Tab PO HS LOIDA Sodium Chloride 1,000 mls @ 130 mls/hr 06/11/23 01:30 06/11/23 09:26 Saline 0.9% IV 130 mls/hr .[id number] LOIDA Administration Azithromycin 500 mg/ Sodium 250 mls @ 250 mls/hr 06/11/23 18:00 Chloride IVPB 06/12/23 18:59 DAILY@1800 [facility] Protocol Ceftriaxone Sodium 2 gm/ 50 mls @ 100 mls/hr 06/11/23 10:00 06/11/23 10:33 Sodium Chloride IVPB 100 mls/hr Q24HR LOIDA Administration Protocol Montelukast Sodium 10 mg 06/12/23 09:00 Montelukast 10 Mg Tab PO DAILY [facility] Morphine Sulfate 4 mg 06/11/23 01:26 Morphine Sulfate 4 Mg/Ml Syringe IV Q4HR PRN Severe Pain (Scale 7 to 10) Naloxone HCl 0.2 mg 06/11/23 01:26 Naloxone 0.4 Mg/Ml 1 Ml Vial IV Q2M PRN Opioid Reversal Ondansetron HCl 4 mg 06/11/23 01:26 Ondansetron 4 Mg/2 Ml Vial IVP Q8HR PRN Nausea And Vomiting Intake and Output 06/10/23 06/11/23 06/11/23 22:59 06:59 14:59 Intake Total 240 Output Total 300 Balance -300 240 Intake: Oral 240 Output: Urine 300 Uretheral (Singh) 300 Other: Voiding Method Indwelling Catheter Indwelling Catheter Weight 98.43 kg 98.43 kg 98.43 kg Patient Weight 06/12/23 06:59 Weight 98.43 kg 06/10/23 21:24 06/10/23 21:24
[2023-06-11] MEDS: MORPHINE SULFATE 4 MG/ML SYRINGE IV PRN (12:33)
--- NOTE | 2023-06-11 13:03 | P.NPCON ---
History of Present Illness - Reason for Consult acute renal failure - History of Present Illness Patient is an 82-year-old female who is admitted to the hospital with a history of fall. Patient sustained a fracture of the left lateral condyle of the distal femur around the prosthesis. Patient was noted to [place] [id number]. Serum creatinine was 2.6. Previous creatinine was 0.8 on 04/21/2023. Blood pressure has been on the lower side Currently maintained on IV fluids. Patient reports good urine output. Repeat labs are pending from today Review of Systems As per HPI Past Medical History Past Medical History: Hyperlipidemia, Hypertension, Osteoarthritis (OA), Skin Disorder, Vascular Disorder Additional Past Medical History / Comment(s): chronic low back/cervical and bilateral shoulder pain, benign colon polyps/diverticular disease, bilateral lower extremity cellulitis but R leg much more often, UTIs, polynephritis, hiatal hernia many years ago. History of Any Multi-Drug Resistant Organisms: None Reported Past Surgical History: Appendectomy, Cholecystectomy, Joint Replacement, Tubal Ligation Additional Past Surgical History / Comment(s): Bilateral total knee arthroplasties, pain clinic procedures, colonoscopies/benign polypectomies, bilateral cataract removals/lens implants, PICC line. Past Anesthesia/Blood Transfusion Reactions: No Reported Reaction Past Psychological History: No Psychological Hx Reported Additional Psychological History / Comment(s): Pt resides alone with her dog. She uses a cane to ambulate. She drives. Her son lives across from her. Smoking Status: Never smoker Past Alcohol Use History: Rare Past Drug Use History: None Reported - Past Family History Mother Family Medical History: Cancer Additional Family Medical History / Comment(s): BREAST CANCER. at 28 years old Father Family Medical History: Cancer Additional Family Medical History / Comment(s): LIVER CANCER/HEART PROBLEMS. Son(s) Family Medical History: Cancer Additional Family Medical History / Comment(s): MULTIPLE MYELOMA/bone cancer- PASSED 2015. Medications and Allergies Home Medications Medication Instructions Recorded Confirmed Type atenoloL 25 mg PO BID 01/18/17 06/10/23 History hydrALAZINE HCL 25 mg PO BID 01/18/17 06/10/23 History HYDROcodone/APAP 10-325MG [[place] 1 tab PO Q8HR PRN 02/21/17 06/10/23 History 10-325] Montelukast [Singulair] 10 mg PO DAILY 08/18/19 06/10/23 History Potassium Chloride [K-Tab ER] 10 meq PO DAILY 08/18/19 06/10/23 History Simvastatin [Zocor] 20 mg PO HS 08/18/19 06/10/23 History FLUoxetine HCL [PROzac] 10 mg PO DAILY 09/24/22 06/10/23 History Ergocalciferol (Vitamin D2) 1,250 mcg PO THAPA 04/18/23 06/10/23 History [Drisdol (50,000 Iu)] Allergies Allergy/AdvReac Type Severity Reaction Status Date / Time adhesive tape Allergy Unknown Rash/Hives Verified 06/10/23 22:53 Sulfa (Sulfonamide Allergy Rash/Hives Verified 06/10/23 22:53 Antibiotics) Physical Exam Vitals: Vital Signs Temp Pulse Pulse Resp BP BP Pulse Ox 06/11/23 12:00 100.1 F H 88 18 106/54 92 L 06/11/23 08:00 98.3 F 96 20 107/65 98 06/11/23 03:33 92 18 116/58 92 L 06/11/23 02:30 98.1 F 93 20 128/59 91 L 06/11/23 02:00 93 20 06/11/23 01:26 87 16 100/60 92 L 06/10/23 22:50 85 18 103/59 92 L 06/10/23 20:22 97.7 F 93 18 111/51 93 L Intake and Output 06/10/23 06/11/23 06/11/23 22:59 06:59 14:59 Intake Total 240 Output Total 300 Balance -300 240 Intake: Oral 240 Output: Urine 300 Uretheral (Singh) 300 Other: Voiding Method Indwelling Catheter Indwelling Catheter Weight 98.43 kg 98.43 kg 98.43 kg Patient is awake, comfortable, no acute distress Examination of the heart S1 and S2 Examination of the lungs bilateral breath sounds are heard Abdomen is soft nontender Examination of lower extremities shows left lower extremity in brace Right lower extremity is wrapped GAMING MANAGER exam grossly intact Results - Lab Results Most recent lab results Calcium 7.6 mg/dL (8.4-10.2) L 06/10/23 21:24 Phosphorus 5.7 mg/dL (2.5-4.5) H 06/10/23 21:24 Magnesium 1.9 mg/dL (1.6-2.3) 06/10/23 21:24 06/10/23 21:24 06/10/23 21:24 Assessment and Plan Assessment: 1. Acute kidney injury, ATN, nonoliguric secondary to rhabdo my lysis and borderline low blood pressure. Continue with IV fluids. UA shows 2+ protein and large blood and WBCs more than 182. 2. Lactic acidosis 3. Rhabdo myolysis status post fall. Patient is maintained on statins. 4. Status post fall with fracture of the distal femur on the left side around the prosthesis. Plan: Continue with IV fluids Hold antihypertensive medications given the low blood pressure. Hydralazine is on hold. I will add parameters on the atenolol and decrease its dose Repeat labs in a.m. DC Lipitor Check ultrasound of the kidneys Check urine culture Thank you for the consultation. We will continue to follow the patient with you during her hospitalization.
--- NOTE | 2023-06-11 13:52 | P.HPIM ---
History of Present Illness H&P Date: 06/11/23 History of present illness; vision is an 82-year-old lady with past medical hist ory significant for hypertension, hyperlipidemia presented the ER for evaluation after having a fall. Patient lives alone, stated that she was at home when she fell, patient didn't lose consciousness. Patient stated that for the last 3-4 days prior to the fall she was not eating and drinking much, was also having diarrhea. Was complaining of nausea and vomiting as well. There was no complaint of any chest pain or shortness of breath prior to falling. Patient complaining of left knee pain. EMS was called and patient was brought to the ER Initial lab work done in the ER showed WBC 31.2, hemoglobin 12.2, platelet count 197, sodium 1:30, potassium 3.9, chloride 97, BUN 33, creatinine 2.66, calcium 7.6, phosphorous 5.7, AST 694, ALT 114, [place] [address] Chest x-ray done in the ER showed cardiomegaly and chronic bilateral full- thickness rotator cuff tears, Danni Brendan failed right basilar atelectasis versus infiltrate/pneumonia X-ray hip and pelvis done showed because of degree of osteopenia limits assessment for nondisplaced fractures, no displaced fracture seen X-ray need an showed small joint effusion, generalized soft tissue swelling but with more focal soft tissue density medially possible hematoma CT of the femur done showed no acute osseous abnormalities, joint effusion Patient admitted to medicine service REVIEW OF SYSTEMS: CONSTITUTIONAL: As mentioned above HEENT: No recent visual problems or hearing problems. Denied any sore throat. CARDIOVASCULAR: No chest pain, orthopnea, PND, no palpitations, no syncope. PULMONARY: No shortness of breath, no cough, no hemoptysis. GASTROINTESTINAL: As mentioned in HPI NEUROLOGICAL: No headaches, no weakness, no numbness. HEMATOLOGICAL: Denies any bleeding or petechiae. GENITOURINARY: Denies any burning micturition, frequency, or urgency. MUSCULOSKELETAL/RHEUMATOLOGICAL: As mentioned above ENDOCRINE: Denies any polyuria or polydipsia. The rest of the 14-point review of systems is negative. PHYSICAL EXAMINATION: GENERAL: The patient is alert and oriented x3, not in any acute distress. Well developed, well nourished. HEENT: Pupils are round and equally reacting to light. EOMI. No scleral icterus. No conjunctival pallor. Normocephalic, atraumatic. No pharyngeal erythema. No thyromegaly. CARDIOVASCULAR: S1 and S2 present. No murmurs, rubs, or gallops. PULMONARY: Chest is clear to auscultation, no wheezing or crackles. ABDOMEN: Soft, nontender, nondistended, normoactive bowel sounds. No palpable organomegaly. MUSCULOSKELETAL: No joint swelling or deformity. EXTREMITIES: No cyanosis, clubbing, or pedal edema. NEUROLOGICAL: Gross neurological examination did not reveal any focal deficits. SKIN: No rashes. Assessment and plan Fall Rhabdomyolysis Pneumonia Acute kidney injury ATN Lactic acidosis Leukocytosis Elevated LFTs Left periprosthetic lateral condyle fracture of the distal femur Right lower extremity cellulitis Monitor vital signs Monitor CBC Monitor CMP Monitor LFTs Trend troponins Ordered 2-D echo Avoid nephrotoxic agents Ordered ultrasound of kidneys and abdomen Continue IV fluids Start patient on IV Rocephin and azithromycin. Orthopedic consulted Cardiology consulted Nephrology consulted ID consulted Labs and medication were reviewed.. Continue same treatment. Continue with symptomatic treatment. Resume home medication. Monitor labs and vitals. DVT and GI prophylaxis. Further recommendations as per clinical course of the patient Dictation was produced using [employer] dictation software. please excuse any grammatical, word or spelling errors. Past Medical History Past Medical History: Hyperlipidemia, Hypertension, Osteoarthritis (OA), Skin Disorder, Vascular Disorder Additional Past Medical History / Comment(s): chronic low back/cervical and bilateral shoulder pain, benign colon polyps/diverticular disease, bilateral lower extremity cellulitis but R leg much more often, UTIs, polynephritis, hiatal hernia many years ago. History of Any Multi-Drug Resistant Organisms: None Reported Past Surgical History: Appendectomy, Cholecystectomy, Joint Replacement, Tubal Ligation Additional Past Surgical History / Comment(s): Bilateral total knee arthroplasties, pain clinic procedures, colonoscopies/benign polypectomies, bilateral cataract removals/lens implants, PICC line. Past Anesthesia/Blood Transfusion Reactions: No Reported Reaction Past Psychological History: No Psychological Hx Reported Additional Psychological History / Comment(s): Pt resides alone with her dog. She uses a cane to ambulate. She drives. Her son lives across from her. Smoking Status: Never smoker Past Alcohol Use History: Rare Past Drug Use History: None Reported - Past Family History Mother Family Medical History: Cancer Additional Family Medical History / Comment(s): BREAST CANCER. at 28 years old Father Family Medical History: Cancer Additional Family Medical History / Comment(s): LIVER CANCER/HEART PROBLEMS. Son(s) Family Medical History: Cancer Additional Family Medical History / Comment(s): MULTIPLE MYELOMA/bone cancer- PASSED 2015. Medications and Allergies Home Medications Medication Instructions Recorded Confirmed Type atenoloL 25 mg PO BID 01/18/17 06/10/23 History hydrALAZINE HCL 25 mg PO BID 01/18/17 06/10/23 History HYDROcodone/APAP 10-325MG [[place] 1 tab PO Q8HR PRN 02/21/17 06/10/23 History 10-325] Montelukast [Singulair] 10 mg PO DAILY 08/18/19 06/10/23 History Potassium Chloride [K-Tab ER] 10 meq PO DAILY 08/18/19 06/10/23 History Simvastatin [Zocor] 20 mg PO HS 08/18/19 06/10/23 History FLUoxetine HCL [PROzac] 10 mg PO DAILY 09/24/22 06/10/23 History Ergocalciferol (Vitamin D2) 1,250 mcg PO THAPA 04/18/23 06/10/23 History [Drisdol (50,000 Iu)] Allergies Allergy/AdvReac Type Severity Reaction Status Date / Time adhesive tape Allergy Unknown Rash/Hives Verified 06/10/23 22:53 Sulfa (Sulfonamide Allergy Rash/Hives Verified 06/10/23 22:53 Antibiotics) Physical Exam Vitals: Vital Signs Temp Pulse Pulse Resp BP BP Pulse Ox 06/11/23 03:33 92 18 116/58 92 L 06/11/23 02:30 98.1 F 93 20 128/59 91 L 06/11/23 02:00 93 20 06/11/23 01:26 87 16 100/60 92 L 06/10/23 22:50 85 18 103/59 92 L 06/10/23 20:22 97.7 F 93 18 111/51 93 L Intake and Output 06/10/23 06/11/23 06/11/23 22:59 06:59 14:59 Intake Total 240 Output Total 300 Balance -300 240 Intake: Oral 240 Output: Urine 300 Uretheral (Singh) 300 Other: Voiding Method Indwelling Catheter Weight 98.43 kg 98.43 kg Results CBC & Chem 7: 06/10/23 21:24 06/10/23 21:24 Labs: Abnormal Lab Results - Last 24 Hours (Table) 06/10/23 06/10/23 06/10/23 Range/Units 21:24 21:24 21:24 WBC 31.2 H (3.8-10.6) k/uL Neutrophils # (Manual) 29.00 H (1.3-7.7) k/uL Lymphocytes # (Manual) 0.94 L (1.0-4.8) k/uL Metamyelocytes # (Man) 0.62 H (0) k/uL Sodium 136 L (137-145) mmol/L Chloride 97 L (98-107) mmol/L BUN 33 H (7-17) mg/dL Creatinine 2.66 H (0.52-1.04) mg/dL Glucose 131 H (74-99) mg/dL Plasma Lactic Acid Mayito (0.7-2.0) mmol/L Calcium 7.6 L (8.4-10.2) mg/dL Phosphorus 5.7 H (2.5-4.5) mg/dL AST 694 H (14-36) U/L ALT 114 H (4-34) U/L Creatine Kinase 57901 H* (30-135) U/L CK-MB (CK-2) 117.0 H (0.0-3.4) ng/mL Troponin I 0.127 H* (0.000-0.034) ng/mL Total Protein 6.1 L (6.3-8.2) g/dL Albumin 2.9 L (3.5-5.0) g/dL Urine Appearance (Clear) Urine Protein (Negative) Urine Blood (Negative) Ur Leukocyte Esterase (Negative) Urine RBC (0-5) /hpf Urine WBC (0-5) /hpf Urine WBC Clumps (None) /hpf Ur Squamous Epith Cells (0-4) /hpf Urine Bacteria (None) /hpf Urine Mucus (None) /hpf 06/10/23 06/11/23 06/11/23 Range/Units 21:24 01:13 03:23 WBC (3.8-10.6) k/uL Neutrophils # (Manual) (1.3-7.7) k/uL Lymphocytes # (Manual) (1.0-4.8) k/uL Metamyelocytes # (Man) (0) k/uL Sodium (137-145) mmol/L Chloride (98-107) mmol/L BUN (7-17) mg/dL Creatinine (0.52-1.04) mg/dL Glucose (74-99) mg/dL Plasma Lactic Acid Mayito 2.7 H* 2.1 H* (0.7-2.0) mmol/L Calcium (8.4-10.2) mg/dL Phosphorus (2.5-4.5) mg/dL AST (14-36) U/L ALT (4-34) U/L Creatine Kinase (30-135) U/L CK-MB (CK-2) (0.0-3.4) ng/mL Troponin I (0.000-0.034) ng/mL Total Protein (6.3-8.2) g/dL Albumin (3.5-5.0) g/dL Urine Appearance Turbid H (Clear) Urine Protein 2+ H (Negative) Urine Blood Large H (Negative) Ur Leukocyte Esterase Large H (Negative) Urine RBC 30 H (0-5) /hpf Urine WBC >182 H (0-5) /hpf Urine WBC Clumps Many H (None) /hpf Ur Squamous Epith Cells 12 H (0-4) /hpf Urine Bacteria Many H (None) /hpf Urine Mucus Rare H (None) /hpf Thrombosis Risk Factor Assmnt - Choose All That Apply Any of the Below Risk Factors Present?: Yes Each Factor Represents 1 point: Obesity (BMI >25), Serious lung disease incl. pneumonia (< 1month), Swollen legs (current) Other Risk Factors: Yes Each Risk Factor Represents 2 Points: Patient confined to bed Each Risk Factor Represents 3 Points: Age 75 years or older Other congenital or acquired thrombophilia - If yes, enter type in comment: No Thrombosis Risk Factor Assessment Total Risk Factor Score: 8 Thrombosis Risk Factor Assessment Level: High Risk
--- NOTE | 2023-06-11 14:45 | US ---
EXAMINATION TYPE: US abdomen comp/pelvis limited DATE OF EXAM: 06/11/2023 COMPARISON: CT 2017, Renal US 2012 CLINICAL INDICATION: Female, 82 years old with history of Abdominal pain, elevated LFTs; Pain, elevat ed LFTs, Cholecystectomy, appendectomy. EXAM MEASUREMENTS: Liver Length: 17.7 cm Gallbladder Wall: Surgically absent. CBD: 0.99 cm Spleen: Not visualized Right Kidney: 11.4 x 5.6 x 6.2 cm Left Kidney: 10.6 x 4.9 x 4.8 cm Exam is limited due to gas and patient body habitus Pancreas: Limited Liver: Appears coarse and heterogeneous with increased echogenicity. Enlarged measuring 17.73cm in l ength. Gallbladder: Surgically absent. CBD: Measures upper limits, not unexpected for post-cholecystectomy state. Spleen: Not visualized Right Kidney: *Hyperechoic focus seen mid:1.4 x 0.8 x 0.7 cm. No hydronephrosis. Left Kidney: No hydronephrosis or masses seen Upper IVC: Appears wnl Abd Aorta: Appears wnl, Distal and iliacs were obscured. Bladder: Not distended, catheter in place. Bilateral Jets Seen No IMPRESSION: 1. Hepatomegaly with heterogeneous appearance of the hepatic parenchyma. No focal mass or lesion is s een within the resolution of this exam. 2. Echogenic focus within the right interpolar kidney, this may relate to a calculus versus prominent renal sinus fat. No hydronephrosis.
[2023-06-11] MEDS ORDERED: DIPHENOX-ATROP 2.5-0.025 MG 1 EACH TAB PO PRN (17:14)
[2023-06-11] MEDS ORDERED: AZITHROMYCIN 500 MG in SODIUM CHLORIDE 0.9% 250 ML IVPB SCH (18:00)
[2023-06-11] MEDS ORDERED: ATORVASTATIN 20 MG TAB PO SCH (21:00)
--- NOTE | 2023-06-11 21:41 | P.CONS ---
History of Present Illness - Reason for Consult Consult date: 06/11/23 - History of Present Illness patient is a 82-year-old female with a past medical history significant for hypertension hyperlipidemia history of right lower extremity venous stasis ulcer and cellulitis who was brought to the hospital yesterday afternoon after apparent the patient have a fall at home patient denies losing consciousness or hitting her head patient mentions she has been feeling weak did have decreased oral intake some nausea and vomiting as well but no significant abdominal pain also complaining of some diarrhea with multiple loose red but no blood or mucus in the stool and did have some urinary symptoms patient denies having any headache or urinary symptoms no chest pain shortness of breath or cough on presentation to the hospital patient was afebrile and did have a low- grade 100.1 F this afternoon patient was mildly hypoxic requiring supplemental oxygen did have vital 31.2 with a left shift lactic acid was elevated BUN/creatinine mildly elevated liver exams are elevated did have a positive UA with large leukocyte esterase moderate 22 WBC stool for C. difficile was negative blood cultures obtained currently pending patient did have a pain to the left lower thigh area after the fall describing it to be more of a sharp, 7- 8 or 10 worse with movement of the leg did have a x-ray of the hip no displaced fracture knee x-ray did shows small joint effusion and small periprosthetic fr acture along the medial aspect has been evaluated by orthopedics recommending medical management at this point chest x-ray did show some basilar infiltrate patient was started on Rocephin and Zithromax infectious disease was consulted for further management of antibiotic therap Past Medical History Past Medical History: Hyperlipidemia, Hypertension, Osteoarthritis (OA), Skin Disorder, Vascular Disorder Additional Past Medical History / Comment(s): chronic low back/cervical and bilateral shoulder pain, benign colon polyps/diverticular disease, bilateral lower extremity cellulitis but R leg much more often, UTIs, polynephritis, hiatal hernia many years ago. History of Any Multi-Drug Resistant Organisms: None Reported Past Surgical History: Appendectomy, Cholecystectomy, Joint Replacement, Tubal Ligation Additional Past Surgical History / Comment(s): Bilateral total knee arthroplasties, pain clinic procedures, colonoscopies/benign polypectomies, bi lateral cataract removals/lens implants, PICC line. Past Anesthesia/Blood Transfusion Reactions: No Reported Reaction Past Psychological History: No Psychological Hx Reported Additional Psychological History / Comment(s): Pt resides alone with her dog. She uses a cane to ambulate. She drives. Her son lives across from her. Smoking Status: Never smoker Past Alcohol Use History: Rare Past Drug Use History: None Reported - Past Family History Mother Family Medical History: Cancer Additional Family Medical History / Comment(s): BREAST CANCER. at 28 years old Father Family Medical History: Cancer Additional Family Medical History / Comment(s): LIVER CANCER/HEART PROBLEMS. Son(s) Family Medical History: Cancer Additional Family Medical History / Comment(s): MULTIPLE MYELOMA/bone cancer- PASSED 2015. Medications and Allergies Home Medications Medication Instructions Recorded Confirmed Type atenoloL 25 mg PO BID 01/18/17 06/10/23 History hydrALAZINE HCL 25 mg PO BID 01/18/17 06/10/23 History HYDROcodone/APAP 10-325MG [[place] 1 tab PO Q8HR PRN 02/21/17 06/10/23 History 10-325] Montelukast [Singulair] 10 mg PO DAILY 08/18/19 06/10/23 History Potassium Chloride [K-Tab ER] 10 meq PO DAILY 08/18/19 06/10/23 History Simvastatin [Zocor] 20 mg PO HS 08/18/19 06/10/23 History FLUoxetine HCL [PROzac] 10 mg PO DAILY 09/24/22 06/10/23 History Ergocalciferol (Vitamin D2) 1,250 mcg PO THAPA 04/18/23 06/10/23 History [Drisdol (50,000 Iu)] Allergies Allergy/AdvReac Type Severity Reaction Status Date / Time adhesive tape Allergy Unknown Rash/Hives Verified 06/10/23 22:53 Sulfa (Sulfonamide Allergy Rash/Hives Verified 06/10/23 22:53 Antibiotics) Physical Exam Vitals: Vital Signs Temp Pulse Pulse Resp BP BP Pulse Ox 06/11/23 08:00 98.3 F 96 20 107/65 98 06/11/23 03:33 92 18 116/58 92 L 06/11/23 02:30 98.1 F 93 20 128/59 91 L 06/11/23 02:00 93 20 06/11/23 01:26 87 16 100/60 92 L 06/10/23 22:50 85 18 103/59 92 L 06/10/23 20:22 97.7 F 93 18 111/51 93 L Intake and Output 06/10/23 06/11/23 06/11/23 22:59 06:59 14:59 Intake Total 240 Output Total 300 Balance -300 240 Intake: Oral 240 Output: Urine 300 Uretheral (Singh) 300 Other: Voiding Method Indwelling Catheter Indwelling Catheter Weight 98.43 kg 98.43 kg Results CBC & Chem 7: 06/10/23 21:24 06/10/23 21:24 Labs: Abnormal Lab Results - Last 24 Hours (Table) 06/10/23 06/10/23 06/10/23 Range/Units 21:24 21:24 21:24 WBC 31.2 H (3.8-10.6) k/uL Neutrophils # (Manual) 29.00 H (1.3-7.7) k/uL Lymphocytes # (Manual) 0.94 L (1.0-4.8) k/uL Metamyelocytes # (Man) 0.62 H (0) k/uL Sodium 136 L (137-145) mmol/L Chloride 97 L (98-107) mmol/L BUN 33 H (7-17) mg/dL Creatinine 2.66 H (0.52-1.04) mg/dL Glucose 131 H (74-99) mg/dL Plasma Lactic Acid Mayito (0.7-2.0) mmol/L Calcium 7.6 L (8.4-10.2) mg/dL Phosphorus 5.7 H (2.5-4.5) mg/dL AST 694 H (14-36) U/L ALT 114 H (4-34) U/L Creatine Kinase 99250 H* (30-135) U/L CK-MB (CK-2) 117.0 H (0.0-3.4) ng/mL Troponin I 0.127 H* (0.000-0.034) ng/mL Total Protein 6.1 L (6.3-8.2) g/dL Albumin 2.9 L (3.5-5.0) g/dL Urine Appearance (Clear) Urine Protein (Negative) Urine Blood (Negative) Ur Leukocyte Esterase (Negative) Urine RBC (0-5) /hpf Urine WBC (0-5) /hpf Urine WBC Clumps (None) /hpf Ur Squamous Epith Cells (0-4) /hpf Urine Bacteria (None) /hpf Urine Mucus (None) /hpf 06/10/23 06/11/23 06/11/23 Range/Units 21:24 01:13 03:23 WBC (3.8-10.6) k/uL Neutrophils # (Manual) (1.3-7.7) k/uL Lymphocytes # (Manual) (1.0-4.8) k/uL Metamyelocytes # (Man) (0) k/uL Sodium (137-145) mmol/L Chloride (98-107) mmol/L BUN (7-17) mg/dL Creatinine (0.52-1.04) mg/dL Glucose (74-99) mg/dL Plasma Lactic Acid Mayito 2.7 H* 2.1 H* (0.7-2.0) mmol/L Calcium (8.4-10.2) mg/dL Phosphorus (2.5-4.5) mg/dL AST (14-36) U/L ALT (4-34) U/L Creatine Kinase (30-135) U/L CK-MB (CK-2) (0.0-3.4) ng/mL Troponin I (0.000-0.034) ng/mL Total Protein (6.3-8.2) g/dL Albumin (3.5-5.0) g/dL Urine Appearance Turbid H (Clear) Urine Protein 2+ H (Negative) Urine Blood Large H (Negative) Ur Leukocyte Esterase Large H (Negative) Urine RBC 30 H (0-5) /hpf Urine WBC >182 H (0-5) /hpf Urine WBC Clumps Many H (None) /hpf Ur Squamous Epith Cells 12 H (0-4) /hpf Urine Bacteria Many H (None) /hpf Urine Mucus Rare H (None) /hpf Assessment and Plan Plan: 1patient presented to hospital with weakness did have a fall leading to the left distal femur/periprosthetic joint infection patient also have significant elevated white count positive UA and urinary symptoms concerning for symptomatic UTI clinically doubt pneumonia 2patient to continue Rocephin 2 g daily however discontinue Zithromax 3-await ultrasound of the kidney and bladder area to make sure no evidence of any obstructive uropathy We will follow on clinical condition and cultures to further adjust medication if needed Thank you for this consultation we will follow the patient along with you Dictation was produced using [employer] dictation software. please excuse any grammatical, word or spelling errors. Time with Patient: Greater than 30
[2023-06-12] MEDS: SODIUM CHLORIDE 0.9% 1,000 ML IV SCH ×3 (06:14→20:41)
[2023-06-12 07:23] LABS: Basophils % (A) 0 %; Eosinophils # (A) 0.1 k/uL (0-0.7); Eosinophils % (A) 0 %; HCT 31.1 % (34.0-46.0); Hypochromasia Slight; Lymphocytes # (A) 0.5 k/uL (1.0-4.8); Lymphocytes % (A) 3 %; MCH 32.3 pg (25.0-35.0); MCHC 31.7 g/dL (31.0-37.0); MCV 101.8 fL (80.0-100.0); Macrocytosis Slight; Mean Platelet Volume 9.4; Monocytes # (A) 0.5 k/uL (0-1.0); Monocytes % (A) 3 %; Neutrophils # (A) 17.9 k/uL (1.3-7.7); Neutrophils % (A) 93 %; Platelet Count 130 k/uL (150-450); RBC 3.06 m/uL (3.80-5.40); RDW 13.9 % (11.5-15.5); WBC 19.3 k/uL (3.8-10.6)
[2023-06-12 07:27] LABS: ALT 192 U/L (4-34); AST 682 U/L (14-36); Albumin 2.1 g/dL (3.5-5.0); Alkaline Phosphatase 111 U/L (38-126); Anion Gap 9 mmol/L; Blood Urea Nitrogen 49 mg/dL (7-17); Carbon Dioxide 23 mmol/L (22-30); Chloride 104 mmol/L (98-107); Glucose 95 mg/dL (74-99); Magnesium 1.9 mg/dL (1.6-2.3); Potassium 3.6 mmol/L (3.5-5.1); Sodium 136 mmol/L (137-145); Total Bilirubin 0.3 mg/dL (0.2-1.3); Total Protein 4.5 g/dL (6.3-8.2)
[2023-06-12 07:32] LABS: African American GFR (CKD) 11 (>60 ml/min/1.73 sqM); Non-African American GFR(CKD) 9 (>60 ml/min/1.73 sqM)
[2023-06-12 07:47] LABS: HGB 9.9 gm/dL (11.4-16.0)
[2023-06-12 08:43] LABS: Calcium 5.6 mg/dL (8.4-10.2); Creatine Kinase 33430 U/L (30-135)
[2023-06-12] MEDS ORDERED: atenoloL 25 MG TAB PO SCH (09:00)
[2023-06-12] MEDS: MONTELUKAST 10 MG TAB PO SCH (09:25)
[2023-06-12 09:28] LABS: Phosphorus 6.8 mg/dL (2.5-4.5)
--- NOTE | 2023-06-12 10:54 | CA ---
Transthoracic Echo Report Name: Dania Vergara Age: 82 Gender: F : 1940 Exam Date: 06/11/2023 10:20 Exam Location: [facility] Ht (in): 62 Wt (lb): 217 Ordering Physician: Forest Epperson Attending/Referring Phys: [employer] Paralegal Jemima Melgar RDCS Procedure CPT: Indications: elevated trop Cardiac Hx: Technical Quality: Fair Contrast 1: Total Dose (mL): Contrast 2: Total Dose (mL): MEASUREMENTS (Male / Female) Normal Values 2D ECHO LV Diastolic Diameter PLAX 4.2 cm 4.2 - 5.9 / 3.9 - 5.3 cm LV Systolic Diameter PLAX 3.0 cm IVS Diastolic Thickness 1.7 cm 0.6 - 1.0 / 0.6 - 0.9 cm LVPW Diastolic Thickness 1.3 cm 0.6 - 1.0 / 0.6 - 0.9 cm LV Relative Wall Thickness 0.7 RV Internal Dim ED PLAX 2.8 cm LA Volume 61.5 cm??? 18 - 58 / 22 - 52 cm??? M-MODE Aortic Root Diameter MM 3.3 cm LA Systolic Diameter MM 3.0 cm LA Ao Ratio MM 0.9 AV Cusp Separation MM 1.6 cm DOPPLER AV Peak Velocity 204.0 cm/s AV Peak Gradient 16.6 mmHg AV Mean Velocity 147.6 cm/s AV Mean Gradient 9.4 mmHg AV Velocity Time Integral 35.4 cm LVOT Peak Velocity 98.9 cm/s LVOT Peak Gradient 3.9 mmHg LVOT Velocity Time Integral 21.1 cm MV Area PHT 4.2 cm??? Mitral E Point Velocity 68.4 cm/s Mitral A Point Velocity 133.2 cm/s Mitral E to A Ratio 0.5 MV Deceleration Time 180.6 ms MV E' Velocity 10.0 cm/s Mitral E to MV E' Ratio 6.8 TR Peak Velocity 323.0 cm/s TR Peak Gradient 41.7 mmHg Right Ventricular Systolic Press 46.0 mmHg FINDINGS Left Ventricle Moderately increased left ventricular wall thickness. Left ventricular cavity size normal. Normal left ventricular systolic function with no obvious regional wall motion abnormalities. Left ventricular ejection fraction is estimated at 55 %. Right Ventricle Normal right ventricular size and function. Mild pulmonary hypertension. Right Atrium Normal right atrial size. Left Atrium Mildly increased left atrial volume. Mitral Valve Mitral valve thickened. Moderate mitral annular calcification. [id number] mitral regurgitation. Aortic Valve Mild aortic stenosis with a peak gradient of 17 mmHg and a mean gradient of 9 mmHg. No aortic regurgitation. Tricuspid Valve Structurally normal tricuspid valve. [id number] tricuspid regurgitation. Pulmonic Valve Structurally normal pulmonic valve. Pericardium No pericardial effusion. Aorta Normal size aortic root and proximal ascending aorta. CONCLUSIONS Normal LV systolic function Normal RV size and function mild to moderate mitral regurgitation Calcific aortic valve with very mild stenosis Previewed by: Dr. Deondre Daugherty MD (Electronically Signed) Final Date: 12 June 2023 10:54
--- NOTE | 2023-06-12 11:41 | P.PN ---
Subjective Patient is seen for follow-up for acute kidney injury. Patient was admitted with history of fall and was found to have fracture of the distal part of the femur on the left side. She was also noted to have rhabdo myolysis. Blood pressure has been low. Urine output has been significantly low with only 1 50 mL documented overnight and no significant urine output today. Serum creatinine has increased to 4.2 mg/dL. Patient denies any nausea or vomiting. Pain is controlled Objective - Vital Signs Vital signs: Vital Signs Temp 98 F 06/12/23 08:00 Pulse 77 06/12/23 08:00 Resp 18 06/12/23 08:00 BP 111/67 06/12/23 08:00 Pulse Ox 95 06/12/23 08:00 FiO2 Intake & Output 06/11/23 06/12/23 06/12/23 18:59 06:59 18:59 Intake Total 1480 1080 680 Output Total 150 Balance 1330 1080 680 Weight 98.43 kg 120.5 kg Intake: Intake, IV Titration 1000 Amount Sodium Chloride 0.9% 1, 950 000 ml @ 130 mls/hr IV . Q7H42M LO[facility] Rx#:[id number] cefTRIAXone 2 gm In 50 Sodium Chloride 0.9% 50 ml @ 100 mls/hr IVPB Q24HR [facility] Rx#:[id number] Oral 480 1080 680 Output: Urine 150 Other: Voiding Method Indwelling Catheter Indwelling Catheter Indwelling Catheter # Bowel Movements 1 - Exam Patient is awake, comfortable, no acute distress Examination of the heart S1 and S2 Examination of the lungs bilateral breath sounds are heard Abdomen is soft nontender Examination of lower extremities shows left lower extremity in brace Right lower extremity is wrapped ORDER PACKER exam grossly intact - Labs CBC & Chem 7: 06/12/23 06:59 06/12/23 06:59 Labs: Abnormal Lab Results - Last 24 Hours (Table) 06/12/23 06/12/23 Range/Units 06:59 06:59 WBC 19.3 H (3.8-10.6) k/uL RBC 3.06 L (3.80-5.40) m/uL Hgb 9.9 L D (11.4-16.0) gm/dL Hct 31.1 L (34.0-46.0) % MCV 101.8 H (80.0-100.0) fL Plt Count 130 L (150-450) k/uL Neutrophils # 17.9 H (1.3-7.7) k/uL Lymphocytes # 0.5 L (1.0-4.8) k/uL Sodium 136 L (137-145) mmol/L BUN 49 H (7-17) mg/dL Creatinine 4.24 H (0.52-1.04) mg/dL Calcium 5.6 L* (8.4-10.2) mg/dL Phosphorus 6.8 H (2.5-4.5) mg/dL AST 682 H (14-36) U/L ALT 192 H (4-34) U/L Creatine Kinase 91392 H* (30-135) U/L Total Protein 4.5 L (6.3-8.2) g/dL Albumin 2.1 L (3.5-5.0) g/dL Microbiology - Last 24 Hours (Table) 06/10/23 23:53 Blood Culture Gram Stain - Preliminary Blood 06/10/23 23:38 Blood Culture Gram Stain - Preliminary Blood Assessment and Plan Assessment: 1. Acute kidney injury, ATN, currently oliguric secondary to rhabdo my lysis and borderline low blood pressure. Continue with IV fluids. UA shows 2+ protein and large blood and WBCs more than 182. Add midodrine for low blood pressure. Ultrasound shows no hydronephrosis. Discussed renal replacement therapy with the patient. No acute indication for dialysis today. 2. Lactic acidosis 3. Rhabdo myolysis status post fall. 4. Status post fall with fracture of the distal femur on the left side around the prosthesis. 5. Hypocalcemia with corrected calcium at 7.1 mg/dL. Serum albumin is 2.1 Plan: Continue with IV fluids. Decrease rate Add midodrine for low blood pressure DC atenolol Discussed renal replacement therapy with the patient. No indication for acute dialysis today. Continue to avoid nephrotoxic agents. Check 25 hydroxy vitamin D level Repeat labs in a.m.
--- NOTE | 2023-06-12 11:53 | P.PN ---
Subjective Progress Note Date: 06/12/23 This is Forest Epperson NP, I'm dictating on behalf of Dr. Daugherty's H&P and A&P. Patient was interviewed and examined. Patient is a pleasant 82-year-old female who presented to the hospital after a fall with suspected extensive downtime. Patient reports that she's feeling okay today. She is denying chest pain, shortness of breath, palpitations. Her creatinine has increased significantly today. Nephrology has discontinued her antihypertensive medications and start her on midodrine. GENERAL: Well-appearing, well-nourished and in no acute distress. NECK: Supple without JVD or thyromegaly. LUNGS: Breath sounds clear to auscultation bilaterally. Respiration equal and unlabored. No wheezes, rales or rhonchi. HEART: Regular rate and rhythm without murmurs, rubs or gallops. S1 and S2 heard. EXTREMITIES: Normal range of motion, no edema. No clubbing or cyanosis. Peripheral pulses intact and strong. VITALS: Temp 98.0, pulse 77, respirations 18, blood pressure 111/67 TELEMETRY: Normal sinus rhythm LABS: White count 19.3, hemoglobin 9.9, platelets 138, sodium 136, potassium 3.6, FEV1 49, creatinine 4.24, magnesium 1.9, creatinine kinase 33,430 IMPRESSION: 1. Mechanical fall with possible fracture 2. Rhabdomyolysis 3. Acute kidney injury 4. Elevated troponin in the presence of significantly elevated CPK PLAN: Please use midodrine cautiously and short-term, after this acute phase is over it should be discontinued. Midodrine should be discontinued before discharge. Home antihypertensive medications may resume when clinically indicated. Continue with IV fluids, the giordano to her management is IV hydration. No further recommendations from a cardiology standpoint. Objective - Vital Signs Vital signs: Vital Signs Temp 98 F 06/12/23 08:00 Pulse 77 06/12/23 08:00 Resp 18 06/12/23 08:00 BP 111/67 06/12/23 08:00 Pulse Ox 95 06/12/23 08:00 FiO2 Intake & Output 06/11/23 06/12/23 06/12/23 18:59 06:59 18:59 Intake Total 1480 1080 680 Output Total 150 Balance 1330 1080 680 Weight 98.43 kg 120.5 kg Intake: Intake, IV Titration 1000 Amount Sodium Chloride 0.9% 1, 950 000 ml @ 130 mls/hr IV . Q7H42M [facility] Rx#:[id number] cefTRIAXone 2 gm In 50 Sodium Chloride 0.9% 50 ml @ 100 mls/hr IVPB Q24HR [facility] Rx#:[id number] Oral 480 1080 680 Output: Urine 150 Other: Voiding Method Indwelling Catheter Indwelling Catheter Indwelling Catheter # Bowel Movements 1 - Labs CBC & Chem 7: 06/12/23 06:59 06/12/23 06:59 Labs: Abnormal Lab Results - Last 24 Hours (Table) 06/12/23 06/12/23 Range/Units 06:59 06:59 WBC 19.3 H (3.8-10.6) k/uL RBC 3.06 L (3.80-5.40) m/uL Hgb 9.9 L D (11.4-16.0) gm/dL Hct 31.1 L (34.0-46.0) % MCV 101.8 H (80.0-100.0) fL Plt Count 130 L (150-450) k/uL Neutrophils # 17.9 H (1.3-7.7) k/uL Lymphocytes # 0.5 L (1.0-4.8) k/uL Sodium 136 L (137-145) mmol/L BUN 49 H (7-17) mg/dL Creatinine 4.24 H (0.52-1.04) mg/dL Calcium 5.6 L* (8.4-10.2) mg/dL Phosphorus 6.8 H (2.5-4.5) mg/dL AST 682 H (14-36) U/L ALT 192 H (4-34) U/L Creatine Kinase 39850 H* (30-135) U/L Total Protein 4.5 L (6.3-8.2) g/dL Albumin 2.1 L (3.5-5.0) g/dL Microbiology - Last 24 Hours (Table) 06/10/23 23:53 Blood Culture Gram Stain - Preliminary Blood 06/10/23 23:38 Blood Culture Gram Stain - Preliminary Blood
[2023-06-12] MEDS ORDERED: SODIUM CHLORIDE 0.9% 500 ML 500 ML IV SCH (12:20)
[2023-06-12] MEDS ORDERED: MIDODRINE 5 MG TAB PO SCH (12:30)
--- NOTE | 2023-06-12 12:31 | P.PN ---
Progress Note - Text Patient admitted with a fall Prolonged downtime on the floor Significantly elevated CPK levels once, greater than 30,000-40,000 Worsening renal function from 2.6 to greater than 4.0 creatinine over 48 hours despite IV fluids Suggest continued IV hydration since the patient's LV function is normal and she should be able to tolerate fluid boluses and higher doses of IV fluids If needed perhaps even renal dose dopamine may be considered She had an occasional low blood pressure readings but repeat blood pressure was normal Midodrin will artificially raise her blood pressure but also cause renal vasoconstriction Midodrin is contraindicated in acute renal failure, which is understandable because vasoconstriction will reduce renal tissue perfusion Stop Midodrin Treat with IV fluids fairly aggressively Additional fluid bolus
[2023-06-12] MEDS: CALCIUM ACETATE 667 MG TAB PO SCH ×2 (12:49→17:21)
--- NOTE | 2023-06-12 12:51 | P.PN ---
Subjective Progress Note Date: 06/12/23 82-year-old lady with past medical history significant for hypertension, hyperlipidemia presented the ER for evaluation after having a fall. Patient lives alone, stated that she was at home when she fell, patient didn't lose consciousness. Patient stated that for the last 3-4 days prior to the fall she was not eating and drinking much, was also having diarrhea. Was complaining of nausea and vomiting as well. There was no complaint of any chest pain or shortness of breath prior to falling. Patient complaining of left knee pain. EMS was called and patient was brought to the ER Initial lab work done in the ER showed WBC 31.2, hemoglobin 12.2, platelet count 197, sodium 1:30, potassium 3.9, chloride 97, BUN 33, creatinine 2.66, calcium 7.6, phosphorous 5.7, AST 694, [place] 114[place] [address] Chest x-ray done in the ER showed cardiomegaly and chronic bilateral full- thickness rotator cuff tears, Danni Brendan failed right basilar atelectasis versus infiltrate/pneumonia X-ray hip and pelvis done showed because of degree of osteopenia limits assessment for nondisplaced fractures, no displaced fracture seen X-ray need an showed small joint effusion, generalized soft tissue swelling but with more focal soft tissue density medially possible hematoma CT of the femur done showed no acute osseous abnormalities, joint effusion Patient admitted to medicine service 06/12. Patient seen and examined. Stated left hip pain is improved. REVIEW OF SYSTEMS: CONSTITUTIONAL: No fever, no malaise,. CARDIOVASCULAR: No chest pain, no palpitations, no syncope. PULMONARY: No shortness of breath, no cough, GASTROINTESTINAL: No diarrhea, no abdominal pain. NEUROLOGICAL: No headaches, no weakness, PHYSICAL EXAMINATION: GENERAL: The patient is alert and oriented x3, not in any acute distress. Well developed, well nourished. HEENT: Pupils are round and equally reacting to light. EOMI. No scleral icterus. No conjunctival pallor. Normocephalic, atraumatic. No pharyngeal erythema. No thyromegaly. CARDIOVASCULAR: S1 and S2 present. No murmurs, rubs, or gallops. PULMONARY: Chest is clear to auscultation, no wheezing or crackles. ABDOMEN: Soft, nontender, nondistended, normoactive bowel sounds. No palpable organomegaly. MUSCULOSKELETAL: No joint swelling or deformity. EXTREMITIES: No cyanosis, clubbing, or pedal edema. NEUROLOGICAL: Gross neurological examination did not reveal any focal deficits. SKIN: No rashes. Assessment and plan Fall Rhabdomyolysis UTI E. coli bacteremia Pneumonia ruled out Acute kidney injury ATN Lactic acidosis Leukocytosis Elevated LFTs Left periprosthetic lateral condyle fracture of the distal femur Right lower extremity cellulitis Monitor vital signs Monitor CBC Monitor CMP Continue telemetry monitoring Follow-up on blood cultures Continue IV Rocephin Avoid nephrotoxic agents Continue IV fluids Follow-up in ID recommendations Follow-up on nephrology recommendations Orthopedic eval with the patient, recommended conservative management with brace Cardiology felt the patient, recommended to get 2-D echo, blood pressure medication on hold secondary to hypotension Labs and medication were reviewed.. Continue same treatment. Continue with symptomatic treatment. Resume home medication. Monitor labs and vitals. DVT and GI prophylaxis. Further recommendations as per clinical course of the patient Dictation was produced using [employer] dictation software. please excuse any grammatical, word or spelling errors. Objective - Vital Signs Vital signs: Vital Signs Temp 98 F 06/12/23 08:00 Pulse 77 06/12/23 08:00 Resp 18 06/12/23 08:00 BP 111/67 06/12/23 08:00 Pulse Ox 95 06/12/23 08:00 FiO2 Intake & Output 06/11/23 06/12/23 06/12/23 18:59 06:59 18:59 Intake Total 1480 1080 440 Output Total 150 Balance 1330 1080 440 Weight 98.43 kg 120.5 kg Intake: Intake, IV Titration 1000 Amount Sodium Chloride 0.9% 1, 950 000 ml @ 130 mls/hr IV . Q7H42M [facility] Rx#:[id number] cefTRIAXone 2 gm In 50 Sodium Chloride 0.9% 50 ml @ 100 mls/hr IVPB Q24HR [facility] Rx#:[id number] Oral 480 1080 440 Output: Urine 150 Other: Voiding Method Indwelling Catheter Indwelling Catheter Indwelling Catheter # Bowel Movements 1 - Labs CBC & Chem 7: 06/12/23 06:59 06/12/23 06:59 Labs: Abnormal Lab Results - Last 24 Hours (Table) 06/12/23 06/12/23 Range/Units 06:59 06:59 WBC 19.3 H (3.8-10.6) k/uL RBC 3.06 L (3.80-5.40) m/uL Hgb 9.9 L D (11.4-16.0) gm/dL Hct 31.1 L (34.0-46.0) % MCV 101.8 H (80.0-100.0) fL Plt Count 130 L (150-450) k/uL Neutrophils # 17.9 H (1.3-7.7) k/uL Lymphocytes # 0.5 L (1.0-4.8) k/uL Sodium 136 L (137-145) mmol/L BUN 49 H (7-17) mg/dL Creatinine 4.24 H (0.52-1.04) mg/dL Calcium 5.6 L* (8.4-10.2) mg/dL Phosphorus 6.8 H (2.5-4.5) mg/dL AST 682 H (14-36) U/L ALT 192 H (4-34) U/L Creatine Kinase 08835 H* (30-135) U/L Total Protein 4.5 L (6.3-8.2) g/dL Albumin 2.1 L (3.5-5.0) g/dL Microbiology - Last 24 Hours (Table) 06/10/23 23:53 Blood Culture Gram Stain - Preliminary Blood 06/10/23 23:38 Blood Culture Gram Stain - Preliminary Blood
[2023-06-12] MEDS ORDERED: CALCIUM CARBONATE 500 MG CHEWABLE PO SCH (13:00)
--- NOTE | 2023-06-12 16:13 | P.PN ---
Subjective Progress Note Date: 06/12/23 Principal diagnosis: UTI and bacteremia patient is a 82-year-old female with a past medical history significant for hypertension hyperlipidemia history of right lower extremity venous stasis ulcer and cellulitis who was brought to the hospital yesterday afternoon after apparent the patient have a fall at home , Left knee x-ray did shows small joint effusion and small periprosthetic fracture along the medial aspect , patient also have a elevated white count and positive UA and blood cultures came back positive. On today's evaluation that is 06/12/2023, the patient is afebrile, the patient is breathing comfortably on 2 L nasal cannula oxygen patient complaining of feeling full and decreased appetite and nausea but no vomiting no chest pain shortness of breath or cough. The patient white count came down to 19.3 creatinine is elevated 4.24 mg mild elevated, ultrasound with no hydronephrosis Objective - Vital Signs Vital signs: Vital Signs Temp 98.1 F 06/12/23 12:40 Pulse 80 06/12/23 12:40 Resp 18 06/12/23 12:40 BP 120/72 06/12/23 12:40 Pulse Ox 91 L 06/12/23 12:40 FiO2 Intake & Output 06/11/23 06/12/23 06/12/23 18:59 06:59 18:59 Intake Total 1480 1080 1610 Output Total 150 Balance 1330 1080 1610 Weight 98.43 kg 120.5 kg Intake: Intake, IV Titration 1000 930 Amount Sodium Chloride 0.9% 1, 950 630 000 ml @ 100 mls/hr IV . Q10H [facility] Rx#:[id number] Sodium Chloride 0.9% 500 250 ml 500 ml @ 999 mls/hr IV .Q31M [facility] Rx#:[id number] cefTRIAXone 2 gm In 50 50 Sodium Chloride 0.9% 50 ml @ 100 mls/hr IVPB Q24HR [facility] Rx#:[id number] Oral 480 1080 680 Output: Urine 150 Other: Voiding Method Indwelling Catheter Indwelling Catheter Indwelling Catheter # Bowel Movements 1 - Exam GENERAL DESCRIPTION: An elderly female lying in bed in no distress RESPIRATORY SYSTEM: Unlabored breathing , decreased breath sounds at bases HEART: S1 S2 regular rate and rhythm , ABDOMEN: Soft , no tenderness EXTREMITIES: Right lower segment is currently wrapped no drainage on the dressing - Labs CBC & Chem 7: 06/12/23 06:59 08/13/23 06:59 Labs: Abnormal Lab Results - Last 24 Hours (Table) 06/12/23 06/12/23 Range/Units 06:59 06:59 WBC 19.3 H (3.8-10.6) k/uL RBC 3.06 L (3.80-5.40) m/uL Hgb 9.9 L D (11.4-16.0) gm/dL Hct 31.1 L (34.0-46.0) % MCV 101.8 H (80.0-100.0) fL Plt Count 130 L (150-450) k/uL Neutrophils # 17.9 H (1.3-7.7) k/uL Lymphocytes # 0.5 L (1.0-4.8) k/uL Sodium 136 L (137-145) mmol/L BUN 49 H (7-17) mg/dL Creatinine 4.24 H (0.52-1.04) mg/dL Calcium 5.6 L* (8.4-10.2) mg/dL Phosphorus 6.8 H (2.5-4.5) mg/dL AST 682 H (14-36) U/L ALT 192 H (4-34) U/L Creatine Kinase 25562 H* (30-135) U/L Total Protein 4.5 L (6.3-8.2) g/dL Albumin 2.1 L (3.5-5.0) g/dL Microbiology - Last 24 Hours (Table) 06/10/23 23:53 Blood Culture Gram Stain - Preliminary Blood Blood Culture - Preliminary Gram Neg Bacilli 06/10/23 23:38 Blood Culture Gram Stain - Preliminary Blood Blood Culture - Preliminary Gram Neg Bacilli Assessment and Plan (1) Sepsis Current Visit: Yes Status: Acute Code(s): A41.9 - SEPSIS, UNSPECIFIED ORGANISM SNOMED Code(s): 23461164 (2) Gram-negative bacteremia Current Visit: Yes Status: Acute Code(s): R78.81 - BACTEREMIA SNOMED Code(s): 656052972996 (3) Urinary tract infection Current Visit: Yes Status: Acute Code(s): N39.0 - URINARY TRACT INFECTION, SITE NOT SPECIFIED SNOMED Code(s): 41638532 Plan: 1patient presented to hospital with weakness did have a fall leading to the left distal femur/periprosthetic joint infection patient also have significant elevated white count positive UA and urinary symptoms concerning for symptomatic UTI clinically doubt pneumonia 2patient did have a positive blood culture likely secondary urinary source, ultrasound of the kidney and bladder area with no evidence of any obstructive uropathy 3-right lower extremity venous stasis ulcer and no cellulitis continue local wound care as ordered. Will reevaluate the leg tomorrow the terminal dressing changes 4-patient to continue Rocephin 2 g daily and monitor clinical course closely Multiple family members at the bedside questions were answered Dictation was produced using [employer] dictation software. please excuse any grammatical, word or spelling errors. Time with Patient: Less than 30
[2023-06-12] MEDS: CALCIUM CARBONATE 500 MG CHEWABLE PO SCH (20:41)
[2023-06-13] MEDS: CALCIUM ACETATE 667 MG TAB PO SCH ×3 (06:17→17:55)
[2023-06-13] MEDS: SODIUM CHLORIDE 0.9% 1,000 ML IV SCH ×2 (06:17→14:52)
[2023-06-13] MEDS: CALCIUM CARBONATE 500 MG CHEWABLE PO SCH ×2 (09:02→20:39)
[2023-06-13] MEDS: MONTELUKAST 10 MG TAB PO SCH (09:02)
[2023-06-13] MEDS: MORPHINE SULFATE 4 MG/ML SYRINGE IV PRN ×3 (09:03→22:53)
--- NOTE | 2023-06-13 10:01 | P.PN ---
Subjective Progress Note Date: 06/13/23 This is an 82-year-old female patient who originally presented to the hospital after she sustained a fall and was on the ground for quite some time before patient was able to get help. Patient apparently had diarrhea prior to fall and was not eating or drinking much. Patient has a past medical history of hypertension hyperlipidemia. Upon arrival patient was found to have a creatinine kinase level of 40,048 white blood cell 31.2 creatinine 2.66 bun 33 AST 694 and ALT 114. Patient was also positive for UTI which was followed by positive blood culture was also found to have a left para-prosthetic lateral condyle fracture of the distal femur. Orthopedic services, nephrology and infectious disease is following. I am resuming care of patient on 06/13/2023 Dr. Gee previously covering On 06/13/2023 patient alert and oriented 3 currently sitting up in bed. Per orthopedic services continue with conservative management. Awaiting lab work but creatinine significantly increased yesterday to 4.24 and 149. Nephrology services are following. Patient remains on IV antibiotics infectious disease services are following. Current vital signs temp 98.0, heart rate 73, respiratory rate 20, blood pressure 124/65 and pulse ox 95% on 2 L Objective - Vital Signs Vital signs: Vital Signs Temp 98.0 F 06/13/23 08:41 Pulse 73 06/13/23 08:41 Resp 20 06/13/23 08:41 BP 124/65 06/13/23 08:41 Pulse Ox 95 06/13/23 08:41 FiO2 Intake & Output 06/12/23 06/13/23 06/13/23 18:59 06:59 18:59 Intake Total 1610 Output Total 100 Balance 1610 -100 Weight 120.5 kg 121 kg Intake: Intake, IV Titration 930 Amount Sodium Chloride 0.9% 1, 630 000 ml @ 100 mls/hr IV . Q10H [facility] Rx#:[id number] Sodium Chloride 0.9% 500 250 ml 500 ml @ 999 mls/hr IV .Q31M [facility] Rx#:[id number] cefTRIAXone 2 gm In 50 Sodium Chloride 0.9% 50 ml @ 100 mls/hr IVPB Q24HR [facility] Rx#:[id number] Oral 680 Output: Urine 100 Uretheral (Singh) 100 Other: Voiding Method Indwelling Catheter Indwelling Catheter - Exam Head normocephalic Neck supple Lungs clear to auscultation bilaterally no wheezing or crackles Heart regular rate and rhythm S1-S2, no rub or gallop Abdomen is soft nontender nondistended positive bowel sounds no hepatosplenomegaly Extremities no edema Neuro alert and orientated to 3 - Labs CBC & Chem 7: 06/12/23 06:59 06/12/23 06:59 Labs: Abnormal Lab Results - Last 24 Hours (Table) 06/12/23 Range/Units 06:59 Vitamin D 25-Hydroxy 10.0 L (30.0-100.0) ng/mL Microbiology - Last 24 Hours (Table) 06/11/23 13:40 Urine Culture - Preliminary Urine,Catheterized Gram Neg Bacilli 06/10/23 23:53 Blood Culture Gram Stain - Preliminary Blood Blood Culture - Preliminary Gram Neg Bacilli 06/10/23 23:38 Blood Culture Gram Stain - Preliminary Blood Blood Culture - Preliminary Gram Neg Bacilli Assessment and Plan Assessment: 1. Fall with rhabdomyolysis 2. Urinary tract infection 3. E. coli bacteremia 4. Acute kidney injury secondary to ATN with hypocalcemia 5. Elevated liver liver enzymes 6. Left periprosthetic lateral condyle fracture of the distal femur. Orthopedic services are following conservative management at this time 7. Right lower extremity cellulitis 8. Elevated troponins per cardiology likely secondary to elevated CPK 9. Diarrhea. Patient was negative for C. diff was given Lomotil Infectious disease, cardiology, nephrology and orthopedic services are following Worsening renal function in the past 40 hours despite aggressive IV fluid. Patient may require renal replacement per nephrology services Patient remains on IV antibiotics Repeat labs ordered
[2023-06-13 11:15] LABS: Basophils % (A) 0 %; Eosinophils # (A) 0.1 k/uL (0-0.7); Eosinophils % (A) 0 %; HCT 31.4 % (34.0-46.0); HGB 9.8 gm/dL (11.4-16.0); Hypochromasia Marked; Lymphocytes # (A) 0.6 k/uL (1.0-4.8); Lymphocytes % (A) 4 %; MCH 31.9 pg (25.0-35.0); MCHC 31.1 g/dL (31.0-37.0); MCV 102.6 fL (80.0-100.0); Macrocytosis Slight; Mean Platelet Volume 9.5; Monocytes # (A) 0.6 k/uL (0-1.0); Monocytes % (A) 4 %; Neutrophils # (A) 14.4 k/uL (1.3-7.7); Neutrophils % (A) 91 %; Platelet Count 141 k/uL (150-450); RBC 3.06 m/uL (3.80-5.40); RDW 13.8 % (11.5-15.5); WBC 15.8 k/uL (3.8-10.6)
[2023-06-13 11:32] LABS: ALT 196 U/L (4-34); AST 512 U/L (14-36); Albumin 2.2 g/dL (3.5-5.0); Alkaline Phosphatase 112 U/L (38-126); Anion Gap 8 mmol/L; Blood Urea Nitrogen 58 mg/dL (7-17); Carbon Dioxide 22 mmol/L (22-30); Chloride 106 mmol/L (98-107); Glucose 105 mg/dL (74-99); Potassium 3.5 mmol/L (3.5-5.1); Sodium 136 mmol/L (137-145); Total Bilirubin 0.3 mg/dL (0.2-1.3); Total Protein 4.8 g/dL (6.3-8.2)
[2023-06-13 11:44] LABS: African American GFR (CKD) 8 (>60 ml/min/1.73 sqM); Non-African American GFR(CKD) 7 (>60 ml/min/1.73 sqM)
[2023-06-13 11:51] LABS: Calcium 6.1 mg/dL (8.4-10.2)
[2023-06-13] MEDS ORDERED: FUROSEMIDE 10 MG/ML 10 ML VIAL IV STA (12:26)
--- NOTE | 2023-06-13 12:29 | P.PN ---
Subjective Patient is seen for follow-up for acute kidney injury. Patient was admitted with history of fall and was found to have fracture of the distal part of the femur on the left side. She was also noted to have rhabdomyolysis. CK level is trending down. It was [address] yesterday. Blood pressure has been low. Urine output has been significantly low with only 100 mL documented overnight and no significant urine output today. Serum creatinine has increased to 5.2 mg/dL. Patient is complaining of increased weakness. She did report some nausea as deon l. Discussed renal replacement therapy with the patient and she is agreeable. Objective - Vital Signs Vital signs: Vital Signs Temp 98.0 F 06/13/23 08:41 Pulse 73 06/13/23 08:41 Resp 20 06/13/23 08:41 BP 124/65 06/13/23 08:41 Pulse Ox 95 06/13/23 08:41 FiO2 Intake & Output 06/12/23 06/13/23 06/13/23 18:59 06:59 18:59 Intake Total 1610 Output Total 100 Balance 1610 -100 Weight 120.5 kg 121 kg Intake: Intake, IV Titration 930 Amount Sodium Chloride 0.9% 1, 630 000 ml @ 100 mls/hr IV . Q10H [facility] Rx#:[id number] Sodium Chloride 0.9% 500 250 ml 500 ml @ 999 mls/hr IV .Q31M [facility] Rx#:[id number] cefTRIAXone 2 gm In 50 Sodium Chloride 0.9% 50 ml @ 100 mls/hr IVPB Q24HR [facility] Rx#:[id number] Oral 680 Output: Urine 100 Uretheral (Singh) 100 Other: Voiding Method Indwelling Catheter Indwelling Catheter Indwelling Catheter - Exam Patient is awake, comfortable, no acute distress Examination of the heart S1 and S2 Examination of the lungs bilateral breath sounds are heard Abdomen is soft nontender Examination of lower extremities shows left lower extremity in brace Right lower extremity is wrapped [employer] exam grossly intact - Labs CBC & Chem 7: 06/13/23 10:38 06/13/23 10:38 Labs: Abnormal Lab Results - Last 24 Hours (Table) 06/12/23 06/13/23 06/13/23 Range/Units 06:59 10:38 10:38 WBC 15.8 H (3.8-10.6) k/uL RBC 3.06 L (3.80-5.40) m/uL Hgb 9.8 L (11.4-16.0) gm/dL Hct 31.4 L (34.0-46.0) % MCV 102.6 H (80.0-100.0) fL Plt Count 141 L (150-450) k/uL Neutrophils # 14.4 H (1.3-7.7) k/uL Lymphocytes # 0.6 L (1.0-4.8) k/uL Sodium 136 L (137-145) mmol/L BUN 58 H (7-17) mg/dL Creatinine 5.21 H (0.52-1.04) mg/dL Glucose 105 H (74-99) mg/dL Calcium 6.1 L* (8.4-10.2) mg/dL AST 512 H (14-36) U/L ALT 196 H (4-34) U/L Total Protein 4.8 L (6.3-8.2) g/dL Albumin 2.2 L (3.5-5.0) g/dL Vitamin D 25-Hydroxy 10.0 L (30.0-100.0) ng/mL Microbiology - Last 24 Hours (Table) 06/11/23 13:40 Urine Culture - Preliminary Urine,Catheterized Gram Neg Bacilli 06/10/23 23:53 Blood Culture Gram Stain - Preliminary Blood Blood Culture - Preliminary Gram Neg Bacilli 06/10/23 23:38 Blood Culture Gram Stain - Preliminary Blood Blood Culture - Preliminary Gram Neg Bacilli Assessment and Plan Assessment: 1. Acute kidney injury, ATN, currently oliguric secondary to rhabdo my lysis and borderline low blood pressure. Continue with IV fluids. UA shows 2+ protein and large blood and WBCs more than 182. Continue midodrine for low blood pressure. Ultrasound shows no hydronephrosis. Discussed renal replacement therapy with the patient. Will proceed with vascular surgery consult and plan for first treatment tomorrow. 2. Lactic acidosis 3. Rhabdo myolysis status post fall. 4. Status post fall with fracture of the distal femur on the left side around the prosthesis. 5. Hypocalcemia with corrected calcium at 7.1 mg/dL. Serum albumin is 2.1. 25-hydroxy D level was low at 10. This will be replaced Plan: IV Lasix 1 to help with urine output. Continue with IV fluids. Decrease rate Continue midodrine for low blood pressure Discussed renal replacement therapy with the patient. She is agreeable. We will proceed with vascular surgery consult and plan for first treatment tomorrow Continue to avoid nephrotoxic agents. Replace vitamin D Repeat labs in a.m.
--- NOTE | 2023-06-13 13:30 | P.PN ---
Subjective Progress Note Date: 06/13/23 Patient admitted with a fall Prolonged downtime on the floor Significantly elevated CPK levels once, greater than 30,000-40,000 Worsening renal function from 2.6 to greater than 4.0 creatinine over 48 hours despite IV fluids Physical examination: Gen: This is a morbidly obese 82-year-old female. VS: reviewed HEENT: Head is atraumatic, normocephalic. LUNGS: No intercostal retractions. HEART: Regular rate and rhythm. EXTREMITIES: No pedal edema. NEUROLOGICAL: Patient is awake, alert. Assessment: Fall Rhabdomyolysis Acute kidney injury Elevated troponin secondary to acute kidney injury/rhabdomyolysis Plan: Continue current management per nephrology. Cardiology will sign off this case and follow on an as-needed basis. Please reconsult for any new concerns. Patient may follow-up in the office in one to 2 weeks. Nurse practitioner note has been reviewed, I agree with the documented findings and plan of care. Patient was seen and examined. Objective - Vital Signs Vital signs: Vital Signs Temp 98.0 F 06/13/23 08:41 Pulse 73 06/13/23 08:41 Resp 20 06/13/23 08:41 BP 124/65 06/13/23 08:41 Pulse Ox 95 06/13/23 08:41 FiO2 Intake & Output 06/12/23 06/13/23 06/13/23 18:59 06:59 18:59 Intake Total 1610 Output Total 100 Balance 1610 -100 Weight 120.5 kg 121 kg Intake: Intake, IV Titration 930 Amount Sodium Chloride 0.9% 1, 630 000 ml @ 100 mls/hr IV . Q10H [facility] Rx#:[id number] Sodium Chloride 0.9% 500 250 ml 500 ml @ 999 mls/hr IV .Q31M [facility] Rx#:[id number] cefTRIAXone 2 gm In 50 Sodium Chloride 0.9% 50 ml @ 100 mls/hr IVPB Q24HR [facility] Rx#:[id number] Oral 680 Output: Urine 100 Uretheral (Singh) 100 Other: Voiding Method Indwelling Catheter Indwelling Catheter - Labs CBC & Chem 7: 06/13/23 10:38 06/13/23 10:38 Labs: Abnormal Lab Results - Last 24 Hours (Table) 06/12/23 Range/Units 06:59 Vitamin D 25-Hydroxy 10.0 L (30.0-100.0) ng/mL Microbiology - Last 24 Hours (Table) 06/11/23 13:40 Urine Culture - Preliminary Urine,Catheterized Gram Neg Bacilli 06/10/23 23:53 Blood Culture Gram Stain - Preliminary Blood Blood Culture - Preliminary Gram Neg Bacilli 06/10/23 23:38 Blood Culture Gram Stain - Preliminary Blood Blood Culture - Preliminary Gram Neg Bacilli
[2023-06-13] MEDS: ERGOCALCIFEROL 1,250 MCG (50,000 IU) CAPSULE PO SCH (14:52)
--- NOTE | 2023-06-13 15:24 | P.GSCN ---
History of Present Illness History of present illness: 62-year-old white female patient has a history of acute kidney injury patient has history father had a fracture left femur there is a history of rhabdomyolysis. Creatinine is 5.2 patient scheduled to have a dialysis catheter On examination neck is supple no bruit appreciated Chest is clear good entry both lungs few crackles the lung bases first and second sound present abdomen is protuberant nontender vascular femorals are 1+ bilateral Plan is placement of dialysis catheter risk and complication discussed Past Medical History Past Medical History: GERD/Reflux, Hyperlipidemia, Hypertension, Osteoarthritis (OA), Skin Disorder Additional Past Medical History / Comment(s): chronic low back/cervical and bilateral shoulder pain, benign colon polyps/diverticular disease, bilateral lower extremity cellulitis but R leg much more often, UTIs, polynephritis, hiatal hernia many years ago. History of Any Multi-Drug Resistant Organisms: None Reported Past Surgical History: Appendectomy, Cholecystectomy, Joint Replacement, Tubal Ligation Additional Past Surgical History / Comment(s): Bilateral total knee arthroplasties, pain clinic procedures, colonoscopies/benign polypectomies, bilateral cataract removals/lens implants, PICC line. Past Anesthesia/Blood Transfusion Reactions: No Reported Reaction Past Psychological History: No Psychological Hx Reported Smoking Status: Never smoker Past Alcohol Use History: Rare Past Drug Use History: None Reported - Past Family History Mother Family Medical History: Cancer Additional Family Medical History / Comment(s): BREAST CANCER. at 28 years old Father Family Medical History: Cancer Additional Family Medical History / Comment(s): LIVER CANCER/HEART PROBLEMS. Son(s) Family Medical History: Cancer Additional Family Medical History / Comment(s): MULTIPLE MYELOMA/bone cancer- PASSED 2015. Medications and Allergies Home Medications Medication Instructions Recorded Confirmed Type atenoloL 25 mg PO BID 01/18/17 06/10/23 History hydrALAZINE HCL 25 mg PO BID 01/18/17 06/10/23 History HYDROcodone/APAP 10-325MG [[place] 1 tab PO Q8HR PRN 02/21/17 06/10/23 History 10-325] Montelukast [Singulair] 10 mg PO DAILY 08/18/19 06/10/23 History Potassium Chloride [K-Tab ER] 10 meq PO DAILY 08/18/19 06/10/23 History Simvastatin [Zocor] 20 mg PO HS 08/18/19 06/10/23 History FLUoxetine HCL [PROzac] 10 mg PO DAILY 09/24/22 06/10/23 History Ergocalciferol (Vitamin D2) 1,250 mcg PO THAPA 04/18/23 06/10/23 History [Drisdol (50,000 Iu)] Allergies Allergy/AdvReac Type Severity Reaction Status Date / Time adhesive tape Allergy Unknown Rash/Hives Verified 06/10/23 22:53 Sulfa (Sulfonamide Allergy Rash/Hives Verified 06/10/23 22:53 Antibiotics) Surgical - Exam Vital Signs Temp Pulse Resp BP Pulse Ox 97.7 F 93 18 111/51 93 L 06/10/23 20:22 06/10/23 20:22 06/10/23 20:22 06/10/23 20:22 06/10/23 20:22 Results - Labs 06/13/23 10:38 06/13/23 10:38 Abnormal Lab Results - Last 24 Hours (Table) 06/12/23 06/13/23 06/13/23 Range/Units 06:59 10:38 10:38 WBC 15.8 H (3.8-10.6) k/uL RBC 3.06 L (3.80-5.40) m/uL Hgb 9.8 L (11.4-16.0) gm/dL Hct 31.4 L (34.0-46.0) % MCV 102.6 H (80.0-100.0) fL Plt Count 141 L (150-450) k/uL Neutrophils # 14.4 H (1.3-7.7) k/uL Lymphocytes # 0.6 L (1.0-4.8) k/uL Sodium 136 L (137-145) mmol/L BUN 58 H (7-17) mg/dL Creatinine 5.21 H (0.52-1.04) mg/dL Glucose 105 H (74-99) mg/dL Calcium 6.1 L* (8.4-10.2) mg/dL AST 512 H (14-36) U/L ALT 196 H (4-34) U/L Total Protein 4.8 L (6.3-8.2) g/dL Albumin 2.2 L (3.5-5.0) g/dL Vitamin D 25-Hydroxy 10.0 L (30.0-100.0) ng/mL Microbiology - Last 24 Hours (Table) 06/10/23 23:53 Blood Culture Gram Stain - Final Blood Blood Culture - Final Escherichia coli 06/10/23 23:38 Blood Culture Gram Stain - Final Blood Blood Culture - Final Escherichia coli 06/11/23 13:40 Urine Culture - Preliminary Urine,Catheterized Gram Neg Bacilli Diabetes panel 06/13/23 Range/Units 10:38 Sodium 136 L (137-145) mmol/L Potassium 3.5 (3.5-5.1) mmol/L Chloride 106 (98-107) mmol/L Carbon Dioxide 22 (22-30) mmol/L BUN 58 H (7-17) mg/dL Creatinine 5.21 H (0.52-1.04) mg/dL Glucose 105 H (74-99) mg/dL Calcium 6.1 L* (8.4-10.2) mg/dL AST 512 H (14-36) U/L ALT 196 H (4-34) U/L Alkaline Phosphatase 112 (38-126) U/L Total Protein 4.8 L (6.3-8.2) g/dL Albumin 2.2 L (3.5-5.0) g/dL Calcium panel 06/13/23 Range/Units 10:38 Calcium 6.1 L* (8.4-10.2) mg/dL Albumin 2.2 L (3.5-5.0) g/dL Pituitary panel 06/13/23 Range/Units 10:38 Sodium 136 L (137-145) mmol/L Potassium 3.5 (3.5-5.1) mmol/L Chloride 106 (98-107) mmol/L Carbon Dioxide 22 (22-30) mmol/L BUN 58 H (7-17) mg/dL Creatinine 5.21 H (0.52-1.04) mg/dL Glucose 105 H (74-99) mg/dL Calcium 6.1 L* (8.4-10.2) mg/dL Adrenal panel 06/13/23 Range/Units 10:38 Sodium 136 L (137-145) mmol/L Potassium 3.5 (3.5-5.1) mmol/L Chloride 106 (98-107) mmol/L Carbon Dioxide 22 (22-30) mmol/L BUN 58 H (7-17) mg/dL Creatinine 5.21 H (0.52-1.04) mg/dL Glucose 105 H (74-99) mg/dL Calcium 6.1 L* (8.4-10.2) mg/dL Total Bilirubin 0.3 (0.2-1.3) mg/dL AST 512 H (14-36) U/L ALT 196 H (4-34) U/L Alkaline Phosphatase 112 (38-126) U/L Total Protein 4.8 L (6.3-8.2) g/dL Albumin 2.2 L (3.5-5.0) g/dL
[2023-06-13] MEDS ORDERED: LIDOCAINE 1% INJ 10MG/ML (30 ML VIAL-PF) SQ ONE ×2 (16:10→16:58)
[2023-06-13] MEDS ORDERED: MIDAZOLAM 2 MG/2 ML VIAL IVP ONE ×2 (16:10)
[2023-06-13] MEDS ORDERED: IV FLUID CONTINUATION 1,000 ML IV ONE (16:18)
[2023-06-13] MEDS ORDERED: IOPAMIDOL-250 100ML BTL IVP ONE (17:25)
--- NOTE | 2023-06-13 17:36 | P.PCN ---
Description of Procedure: Preoperative diagnoses is acute chronic renal failure creatinine Same Procedure attempted to right IJ catheter 28 same dialysis cath catheter placed and femoral approach Procedure this patient brought to the Multiple Slide Operator Darek of the neck and chest was prepped and draped applied in standard manner 1% lidocaine with infected neck and chest area. Ultrasound-guided micropuncture introducer right jugular vein Patient Hernandez came to guide was passed guidewire will go to the subclavian vein this patient had a PICC line placed in the past. Vena cava was found to be patent at this point several attempts were made to pass a guidewire but guidewire wound to the inferior vena cava is to go to the right subclavian vein at this point we decided to put a permanent catheter right femoral approach right groin were prepped and draped applied sterile manner 1% lidocaine Were infiltrated ultrasound-guided micropuncture introduced right femoral vein micropuncture guidewire was passed and 4-Namibian dilator advanced on the top of guidewire and the possibility dilator and guidewire then replaced a sheath through the sheath we placed a 28 cm dialysis catheter tip of catheter is in the inferior vena cava flushed with heparin saline and Hep-Lock secured with 3-0 nylon dressing applied patient are to the procedure well patient was transferred to do her room in satisfactory condition
[2023-06-14] MEDS: SODIUM CHLORIDE 0.9% 1,000 ML IV SCH ×3 (05:32→16:37)
[2023-06-14] MEDS: CALCIUM ACETATE 667 MG TAB PO SCH ×3 (06:12→16:36)
[2023-06-14] MEDS: MONTELUKAST 10 MG TAB PO SCH (07:55)
[2023-06-14] MEDS: CALCIUM CARBONATE 500 MG CHEWABLE PO SCH ×3 (07:55→20:21)
--- NOTE | 2023-06-14 09:00 | IR ---
EXAMINATION TYPE: IR cvc insert non tunneled DATE OF EXAM: 06/13/2023 COMPARISON: NONE HISTORY: Fluoroscopy time. Fluoroscopy was provided to the referring clinician.
[2023-06-14 10:17] LABS: Basophils # (A) 0.1 k/uL (0-0.2); Basophils % (A) 1 %; Eosinophils # (A) 0.2 k/uL (0-0.7); Eosinophils % (A) 1 %; HCT 29.4 % (34.0-46.0); HGB 9.4 gm/dL (11.4-16.0); Lymphocytes # (A) 0.6 k/uL (1.0-4.8); Lymphocytes % (A) 4 %; MCH 33.1 pg (25.0-35.0); MCHC 31.8 g/dL (31.0-37.0); MCV 104.1 fL (80.0-100.0); Macrocytosis Slight; Mean Platelet Volume 9.4; Monocytes # (A) 0.8 k/uL (0-1.0); Monocytes % (A) 5 %; Neutrophils # (A) 12.6 k/uL (1.3-7.7); Neutrophils % (A) 87 %; Platelet Count 141 k/uL (150-450); RBC 2.83 m/uL (3.80-5.40); WBC 14.5 k/uL (3.8-10.6)
[2023-06-14 10:30] LABS: Hypochromasia Marked
[2023-06-14 10:58] LABS: Anion Gap 7 mmol/L; Blood Urea Nitrogen 63 mg/dL (7-17); Carbon Dioxide 22 mmol/L (22-30); Chloride 107 mmol/L (98-107); Glucose 126 mg/dL (74-99); Potassium 3.7 mmol/L (3.5-5.1); Sodium 136 mmol/L (137-145)
[2023-06-14 11:04] LABS: African American GFR (CKD) 7 (>60 ml/min/1.73 sqM); Non-African American GFR(CKD) 6 (>60 ml/min/1.73 sqM)
[2023-06-14 11:07] LABS: Calcium 6.4 mg/dL (8.4-10.2)
--- NOTE | 2023-06-14 13:04 | P.PN ---
Subjective Patient is seen for follow-up for acute kidney injury. Patient was admitted with history of fall and was found to have fracture of the distal part of the femur on the left side. She was also noted to have rhabdomyolysis. CK level is trending down. It was [address] on 06/12/2023. Blood pressure has been low. Urine output has been significantly low. Serum creatinine has increased to 5.9 mg/dL. Patient is complaining of increased weakness. She did report some nausea as well. Discussed renal replacement therapy with the patient and she is agre eable. Status post placement of femoral dialysis catheter on 06/13/2023 next Patient is seen on hemodialysis today. No significant complaints. Tolerating treatment well. Objective - Vital Signs Vital signs: Vital Signs Temp 97.6 F 06/14/23 07:51 Pulse 73 06/14/23 12:02 Resp 17 06/14/23 07:52 BP 122/58 06/14/23 12:02 Pulse Ox 95 06/14/23 07:51 FiO2 Intake & Output 06/13/23 06/14/23 06/14/23 18:59 06:59 18:59 Intake Total 870 120 555 Output Total 150 Balance 720 120 555 Intake: IV 100 Intake, IV Titration 50 Amount cefTRIAXone 2 gm In 50 Sodium Chloride 0.9% 50 ml @ 100 mls/hr IVPB Q24HR REPLACED BY [facility] Rx#:[id number] Oral 720 120 555 Output: Urine 150 Uretheral (Singh) 100 Other: Voiding Method Indwelling Catheter Indwelling Catheter Indwelling Catheter - Exam Patient is awake, comfortable, no acute distress Examination of the heart S1 and S2 Examination of the lungs bilateral breath sounds are heard Abdomen is soft nontender Examination of lower extremities shows left lower extremity in brace Right lower extremity is wrapped [employer] exam grossly intact - Labs CBC & Chem 7: 06/14/23 09:00 06/14/23 10:20 Labs: Abnormal Lab Results - Last 24 Hours (Table) 06/14/23 06/14/23 Range/Units 09:00 10:20 WBC 14.5 H (3.8-10.6) k/uL RBC 2.83 L (3.80-5.40) m/uL Hgb 9.4 L (11.4-16.0) gm/dL Hct 29.4 L (34.0-46.0) % MCV 104.1 H (80.0-100.0) fL Plt Count 141 L (150-450) k/uL Neutrophils # 12.6 H (1.3-7.7) k/uL Lymphocytes # 0.6 L (1.0-4.8) k/uL Sodium 136 L (137-145) mmol/L BUN 63 H (7-17) mg/dL Creatinine 5.98 H (0.52-1.04) mg/dL Glucose 126 H (74-99) mg/dL Calcium 6.4 L* (8.4-10.2) mg/dL Microbiology - Last 24 Hours (Table) 06/11/23 13:40 Urine Culture - Final Urine,Catheterized Escherichia coli 06/10/23 23:53 Blood Culture Gram Stain - Final Blood Blood Culture - Final Escherichia coli 06/10/23 23:38 Blood Culture Gram Stain - Final Blood Blood Culture - Final Escherichia coli Assessment and Plan Assessment: 1. Acute kidney injury, ATN, currently oliguric secondary to rhabdo my lysis and borderline low blood pressure. Continue with IV fluids. UA shows 2+ protein and large blood and WBCs more than 182. Continue midodrine for low blood pressure. Ultrasound shows no hydronephrosis. Discussed renal replacement therapy with the patient. Status post right femoral permacath placement. Started hemodialysis 06/14/2023 2. Lactic acidosis 3. Rhabdo myolysis status post fall. 4. Status post fall with fracture of the distal femur on the left side around the prosthesis. 5. Hypocalcemia with corrected calcium at 7.1 mg/dL. Serum albumin is 2.1. 25-hydroxy D level was low at 10. This will be replaced Plan: Repeat hemodialysis in a.m. Continue with vitamin D Decrease IV fluids Continue to encourage increase oral intake Continue to avoid nephrotoxic agents and monitor for recovery of renal function. Urine output remains low at this time.
[2023-06-14] MEDS ORDERED: CALCIUM CARBONATE 500 MG CHEWABLE PO PRN (13:24)
--- NOTE | 2023-06-14 16:04 | P.PN ---
Subjective Progress Note Date: 06/13/23 Principal diagnosis: UTI and bacteremia patient is a 82-year-old female with a past medical history significant for hypertension hyperlipidemia history of right lower extremity venous stasis ulcer and cellulitis who was brought to the hospital yesterday afternoon after apparent the patient have a fall at home , Left knee x-ray did shows small joint effusion and small periprosthetic fracture along the medial aspect , patient also have a elevated white count and positive UA and blood cultures came back positive. On today's evaluation that is 06/13/2023, the patient remains to be afebrile, the patient is breathing comfortably on 2 L nasal cannula oxygen patient denies any further nausea or vomiting no chest pain shortness of breath or cough. The patient white count came down to 15.8 however creatinine is up to 5.21 blood and urine cultures with E. coli Objective - Vital Signs Vital signs: Vital Signs Temp 98.0 F 06/13/23 12:00 Pulse 75 06/13/23 12:00 Resp 20 06/13/23 12:00 BP 119/65 06/13/23 12:00 Pulse Ox 93 L 06/13/23 12:00 FiO2 Intake & Output 06/12/23 06/13/23 06/13/23 18:59 06:59 18:59 Intake Total 1610 240 Output Total 100 Balance 1610 140 Weight 120.5 kg 121 kg Intake: Intake, IV Titration 930 Amount Sodium Chloride 0.9% 1, 630 000 ml @ 100 mls/hr IV . Q10H [facility] Rx#:[id number] Sodium Chloride 0.9% 500 250 ml 500 ml @ 999 mls/hr IV .Q31M [facility] Rx#:[id number] cefTRIAXone 2 gm In 50 Sodium Chloride 0.9% 50 ml @ 100 mls/hr IVPB Q24HR [facility] Rx#:[id number] Oral 680 240 Output: Urine 100 Uretheral (Singh) 100 Other: Voiding Method Indwelling Catheter Indwelling Catheter Indwelling Catheter - Exam GENERAL DESCRIPTION: An elderly female lying in bed in no distress RESPIRATORY SYSTEM: Unlabored breathing , decreased breath sounds at bases HEART: S1 S2 regular rate and rhythm , ABDOMEN: Soft , no tenderness EXTREMITIES: Right lower segment is currently wrapped no drainage on the dressing - Labs CBC & Chem 7: 06/14/23 09:00 06/14/23 10:20 Labs: Abnormal Lab Results - Last 24 Hours (Table) 06/12/23 06/13/23 06/13/23 Range/Units 06:59 10:38 10:38 WBC 15.8 H (3.8-10.6) k/uL RBC 3.06 L (3.80-5.40) m/uL Hgb 9.8 L (11.4-16.0) gm/dL Hct 31.4 L (34.0-46.0) % MCV 102.6 H (80.0-100.0) fL Plt Count 141 L (150-450) k/uL Neutrophils # 14.4 H (1.3-7.7) k/uL Lymphocytes # 0.6 L (1.0-4.8) k/uL Sodium 136 L (137-145) mmol/L BUN 58 H (7-17) mg/dL Creatinine 5.21 H (0.52-1.04) mg/dL Glucose 105 H (74-99) mg/dL Calcium 6.1 L* (8.4-10.2) mg/dL AST 512 H (14-36) U/L ALT 196 H (4-34) U/L Total Protein 4.8 L (6.3-8.2) g/dL Albumin 2.2 L (3.5-5.0) g/dL Vitamin D 25-Hydroxy 10.0 L (30.0-100.0) ng/mL Microbiology - Last 24 Hours (Table) 06/11/23 13:40 Urine Culture - Preliminary Urine,Catheterized Gram Neg Bacilli 06/10/23 23:53 Blood Culture Gram Stain - Preliminary Blood Blood Culture - Preliminary Gram Neg Bacilli 06/10/23 23:38 Blood Culture Gram Stain - Preliminary Blood Blood Culture - Preliminary Gram Neg Bacilli Assessment and Plan (1) Sepsis Current Visit: Yes Status: Acute Code(s): A41.9 - SEPSIS, UNSPECIFIED ORGANISM SNOMED Code(s): 24063352 (2) Gram-negative bacteremia Current Visit: Yes Status: Acute Code(s): R78.81 - BACTEREMIA SNOMED Code(s): 883567970106 (3) Urinary tract infection Current Visit: Yes Status: Acute Code(s): N39.0 - URINARY TRACT INFECTION, SITE NOT SPECIFIED SNOMED Code(s): 99723438 Plan: 1patient presented to hospital with weakness did have a fall leading to the left distal femur/periprosthetic joint infection patient also have significant elevated white count positive UA and urinary symptoms concerning for symptomatic UTI clinically doubt pneumonia 2patient did have E. coli bacteremia likely secondary urinary source, ultrasound of the kidney and bladder area with no evidence of any obstructive uropathy 3-right lower extremity venous stasis ulcer and no cellulitis continue local wound care as ordered. Will reevaluate the leg at the time of next dressing changes 4-patient to continue Rocephin 2 g daily and monitor clinical course closely Multiple family members at the bedside questions were answered Dictation was produced using [employer] dictation software. please excuse any grammatical, word or spelling errors. Time with Patient: Less than 30
--- NOTE | 2023-06-14 16:06 | P.PN ---
Subjective Progress Note Date: 06/14/23 Principal diagnosis: UTI and bacteremia patient is a 82-year-old female with a past medical history significant for hypertension hyperlipidemia history of right lower extremity venous stasis ulcer and cellulitis who was brought to the hospital yesterday afternoon after apparent the patient have a fall at home , Left knee x-ray did shows small joint effusion and small periprosthetic fracture along the medial aspect , patient also have a elevated white count and positive UA and blood cultures came back positive. Patient has been started on dialysis for worsening kidney function On today's evaluation that is 06/14/2023, the patient denies any fever or any chills, the patient is breathing comfortably on 2 L nasal cannula oxygen patient denies any further nausea or vomiting, the patient denies chest pain shortness of breath or cough. The patient white count came down to 14.5, creatinine is up to 5.98, both blood and urine culture E. coli that is sensitive pathogen Objective - Vital Signs Vital signs: Vital Signs Temp 97.6 F 06/14/23 07:51 Pulse 73 06/14/23 12:02 Resp 17 06/14/23 07:52 BP 122/58 06/14/23 12:02 Pulse Ox 95 06/14/23 07:51 FiO2 Intake & Output 06/13/23 06/14/23 06/14/23 18:59 06:59 18:59 Intake Total 870 120 555 Output Total 150 Balance 720 120 555 Intake: IV 100 Intake, IV Titration 50 Amount cefTRIAXone 2 gm In 50 Sodium Chloride 0.9% 50 ml @ 100 mls/hr IVPB Q24HR [facility] Rx#:[id number] Oral 720 120 555 Output: Urine 150 Uretheral (Singh) 100 Other: Voiding Method Indwelling Catheter Indwelling Catheter Indwelling Catheter - Exam GENERAL DESCRIPTION: An elderly female lying in bed in no distress RESPIRATORY SYSTEM: Unlabored breathing , decreased breath sounds at bases HEART: S1 S2 regular rate and rhythm , ABDOMEN: Soft , no tenderness EXTREMITIES: Right lower segment is currently wrapped no drainage on the dressing - Labs CBC & Chem 7: 06/14/23 09:00 06/14/23 10:20 Labs: Abnormal Lab Results - Last 24 Hours (Table) 06/14/23 06/14/23 Range/Units 09:00 10:20 WBC 14.5 H (3.8-10.6) k/uL RBC 2.83 L (3.80-5.40) m/uL Hgb 9.4 L (11.4-16.0) gm/dL Hct 29.4 L (34.0-46.0) % MCV 104.1 H (80.0-100.0) fL Plt Count 141 L (150-450) k/uL Neutrophils # 12.6 H (1.3-7.7) k/uL Lymphocytes # 0.6 L (1.0-4.8) k/uL Sodium 136 L (137-145) mmol/L BUN 63 H (7-17) mg/dL Creatinine 5.98 H (0.52-1.04) mg/dL Glucose 126 H (74-99) mg/dL Calcium 6.4 L* (8.4-10.2) mg/dL Microbiology - Last 24 Hours (Table) 06/11/23 13:40 Urine Culture - Final Urine,Catheterized Escherichia coli 06/10/23 23:53 Blood Culture Gram Stain - Final Blood Blood Culture - Final Escherichia coli 06/10/23 23:38 Blood Culture Gram Stain - Final Blood Blood Culture - Final Escherichia coli Assessment and Plan (1) Sepsis Current Visit: Yes Status: Acute Code(s): A41.9 - SEPSIS, UNSPECIFIED ORGANISM SNOMED Code(s): 08770906 (2) Gram-negative bacteremia Current Visit: Yes Status: Acute Code(s): R78.81 - BACTEREMIA SNOMED Code(s): 919639602816 (3) Urinary tract infection Current Visit: Yes Status: Acute Code(s): N39.0 - URINARY TRACT INFECTION, SITE NOT SPECIFIED SNOMED Code(s): 35857158 Plan: 1patient presented to hospital with weakness did have a fall leading to the left distal femur/periprosthetic joint infection patient also have significant elevated white count positive UA and urinary symptoms concerning for symptomatic UTI clinically doubt pneumonia 2patient did have E. coli bacteremia likely secondary urinary source, ultrasound of the kidney and bladder area with no evidence of any obstructive uropathy 3-right lower extremity venous stasis ulcer and no cellulitis continue local wound care as ordered. Will reevaluate the leg at the time of next dressing changes 4-patient both blood and urine did grow E. coli that is a sensitive bacteria, patient to continue Rocephin 2 g daily and monitor clinical course closely Dictation was produced using [employer] dictation software. please excuse any grammatical, word or spelling errors. Time with Patient: Less than 30
--- NOTE | 2023-06-14 16:16 | P.PN ---
Subjective Progress Note Date: 06/14/23 This is an 82-year-old female patient who originally presented to the hospital after she sustained a fall and was on the ground for quite some time before patient was able to get help. Patient apparently had diarrhea prior to fall and was not eating or drinking much. Patient has a past medical history of hypertension hyperlipidemia. Upon arrival patient was found to have a creatinine kinase level of 40,048 white blood cell 31.2 creatinine 2.66 bun 33 AST 694 and ALT 114. Patient was also positive for UTI which was followed by positive blood culture was also found to have a left para-prosthetic lateral condyle fracture of the distal femur. Orthopedic services, nephrology and infectious disease is following. I am resuming care of patient on 06/13/2023 Dr. Gee previously covering On 06/13/2023 patient alert and oriented 3 currently sitting up in bed. Per orthopedic services continue with conservative management. Awaiting lab work but creatinine significantly increased yesterday to 4.24 and 149. Nephrology services are following. Patient remains on IV antibiotics infectious disease services are following. Current vital signs temp 98.0, heart rate 73, respiratory rate 20, blood pressure 124/65 and pulse ox 95% on 2 L On 06/14/2023 patient was seen and examined on the telemetry floor she is alert and oriented 3 in no apparent distress, she is resting in bed, she is compl aining of lower extremity pain, otherwise she denies any complaints at this time, she underwent her first session of hemodialysis today, there is no fever or chills no headache or dizziness no chest pain no shortness of breath no cough no nausea or vomiting no abdominal pain no diarrhea and no urinary symptoms. Objective - Vital Signs Vital signs: Vital Signs Temp 97.6 F 06/14/23 07:51 Pulse 73 06/14/23 12:02 Resp 17 06/14/23 07:52 BP 122/58 06/14/23 12:02 Pulse Ox 95 06/14/23 07:51 FiO2 Intake & Output 06/13/23 06/14/23 06/14/23 18:59 06:59 18:59 Intake Total 870 120 675 Output Total 150 Balance 720 120 675 Intake: IV 100 Intake, IV Titration 50 Amount cefTRIAXone 2 gm In 50 Sodium Chloride 0.9% 50 ml @ 100 mls/hr IVPB Q24HR [facility] Rx#:[id number] Oral 720 120 675 Output: Urine 150 Uretheral (Singh) 100 Other: Voiding Method Indwelling Catheter Indwelling Catheter Indwelling Catheter - Exam In general patient is alert and oriented x 3 in no distress HEENT head normocephalic and atraumatic Neck is supple no JVD no goiter no lymphadenopathy no carotid bruit Chest examination is clear to auscultation no crackles no wheezing Cardiac exam reveals regular heart sounds S1 and S2 no gallops no murmurs Abdomen is soft nontender no organomegaly with normal bowel sounds Extremity exam reveals no edema no cyanosis or clubbing Neurological examination reveals no gross focal deficits - Labs CBC & Chem 7: 06/14/23 09:00 06/14/23 10:20 Labs: Abnormal Lab Results - Last 24 Hours (Table) 06/14/23 06/14/23 Range/Units 09:00 10:20 WBC 14.5 H (3.8-10.6) k/uL RBC 2.83 L (3.80-5.40) m/uL Hgb 9.4 L (11.4-16.0) gm/dL Hct 29.4 L (34.0-46.0) % MCV 104.1 H (80.0-100.0) fL Plt Count 141 L (150-450) k/uL Neutrophils # 12.6 H (1.3-7.7) k/uL Lymphocytes # 0.6 L (1.0-4.8) k/uL Sodium 136 L (137-145) mmol/L BUN 63 H (7-17) mg/dL Creatinine 5.98 H (0.52-1.04) mg/dL Glucose 126 H (74-99) mg/dL Calcium 6.4 L* (8.4-10.2) mg/dL Microbiology - Last 24 Hours (Table) 06/11/23 13:40 Urine Culture - Final Urine,Catheterized Escherichia coli 06/10/23 23:53 Blood Culture Gram Stain - Final Blood Blood Culture - Final Escherichia coli 06/10/23 23:38 Blood Culture Gram Stain - Final Blood Blood Culture - Final Escherichia coli Assessment and Plan Assessment: 1. Fall with rhabdomyolysis 2. Urinary tract infection 3. E. coli bacteremia 4. Acute kidney injury secondary to ATN, started on hemodialysis today 5. Elevated liver liver enzymes 6. Left periprosthetic lateral condyle fracture of the distal femur. Orthopedic services are following conservative management at this time 7. Right lower extremity cellulitis 8. Elevated troponins per cardiology likely secondary to elevated CPK 9. Diarrhea. Patient was negative for C. diff was given Lomotil Infectious disease, cardiology, nephrology and orthopedic services are following Worsening renal function in the past 40 hours despite aggressive IV fluid. Patient may require renal replacement per nephrology services Patient remains on IV antibiotics Repeat labs ordered
[2023-06-14] MEDS: MORPHINE SULFATE 4 MG/ML SYRINGE IV PRN ×2 (16:37→22:10)
[2023-06-14 17:40] LABS: Hepatitis B Surface AB- Quant 3.5 mIU/mL
[2023-06-14 18:10] LABS: Hepatitis B Surface Antigen Nonreactive
[2023-06-15] MEDS: CALCIUM ACETATE 667 MG TAB PO SCH ×3 (06:29→17:42)
[2023-06-15] MEDS: MORPHINE SULFATE 4 MG/ML SYRINGE IV PRN ×2 (07:49→21:26)
[2023-06-15] MEDS: MONTELUKAST 10 MG TAB PO SCH (07:50)
[2023-06-15] MEDS: CALCIUM CARBONATE 500 MG CHEWABLE PO SCH ×3 (07:50→21:17)
--- NOTE | 2023-06-15 08:20 | XR ---
EXAMINATION TYPE: XR chest 1V portable DATE OF EXAM: 06/15/2023 COMPARISON: 06/10/2023 HISTORY: Cough TECHNIQUE: Single frontal view of the chest is obtained. FINDINGS: There is no focal air space opacity, pleural effusion, or pneumothorax seen. The cardiac silhouette size is within normal limits. The osseous structures are intact. Subsegmental basilar ch anges most likely atelectasis. Diffuse osteopenia throughout the shoulders. Atherosclerotic change ao rta. IMPRESSION: Basilar subsegmental changes for which atelectasis is favored over pneumonia.
--- NOTE | 2023-06-15 10:19 | P.PN ---
Subjective Progress Note Date: 06/15/23 This is an 82-year-old female patient who originally presented to the hospital after she sustained a fall and was on the ground for quite some time before patient was able to get help. Patient apparently had diarrhea prior to fall and was not eating or drinking much. Patient has a past medical history of hypertension hyperlipidemia. Upon arrival patient was found to have a creatinine kinase level of 40,048 white blood cell 31.2 creatinine 2.66 bun 33 AST 694 and ALT 114. Patient was also positive for UTI which was followed by positive blood culture was also found to have a left para-prosthetic lateral condyle fracture of the distal femur. Orthopedic services, nephrology and infectious disease is following. I am resuming care of patient on 06/13/2023 Dr. Gee previously covering On 06/13/2023 patient alert and oriented 3 currently sitting up in bed. Per orthopedic services continue with conservative management. Awaiting lab work but creatinine significantly increased yesterday to 4.24 and 149. Nephrology services are following. Patient remains on IV antibiotics infectious disease services are following. Current vital signs temp 98.0, heart rate 73, respiratory rate 20, blood pressure 124/65 and pulse ox 95% on 2 L On 06/14/2023 patient was seen and examined on the telemetry floor she is alert and oriented 3 in no apparent distress, she is resting in bed, she is compl aining of lower extremity pain, otherwise she denies any complaints at this time, she underwent her first session of hemodialysis today, there is no fever or chills no headache or dizziness no chest pain no shortness of breath no cough no nausea or vomiting no abdominal pain no diarrhea and no urinary symptoms. On 06/15/2023 patient alert and oriented 3 currently resting comfortably in bed. Patient was started on hemodialysis plans for additional hemodialysis today per nephrology services. Current vital signs temp 98.1, heart rate 73, respiratory 16, blood pressure 11/23/1972 with pulse ox 98% on 2 L. labwork currently pending. Objective - Vital Signs Vital signs: Vital Signs Temp 98.1 F 06/15/23 07:47 Pulse 73 06/15/23 07:47 Resp 16 06/15/23 07:47 BP 124/73 06/15/23 07:47 Pulse Ox 98 06/15/23 07:47 FiO2 Intake & Output 06/14/23 06/15/23 06/15/23 18:59 06:59 18:59 Intake Total 1415 120 120 Output Total 800 Balance 615 120 120 Intake: Oral 1115 120 120 Hemodialysis 300 Output: Hemodialysis 800 Other: Voiding Method Indwelling Catheter Indwelling Catheter Indwelling Catheter # Voids 0 # Bowel Movements 0 - Exam In general patient is alert and oriented x 3 in no distress HEENT head normocephalic and atraumatic Neck is supple no JVD no goiter no lymphadenopathy no carotid bruit Chest examination is clear to auscultation no crackles no wheezing Cardiac exam reveals regular heart sounds S1 and S2 no gallops no murmurs Abdomen is soft nontender no organomegaly with normal bowel sounds Extremity exam reveals no edema no cyanosis or clubbing Neurological examination reveals no gross focal deficits - Labs CBC & Chem 7: 06/14/23 09:00 06/14/23 10:20 Labs: Abnormal Lab Results - Last 24 Hours (Table) 06/14/23 06/14/23 Range/Units 09:00 10:20 WBC 14.5 H (3.8-10.6) k/uL RBC 2.83 L (3.80-5.40) m/uL Hgb 9.4 L (11.4-16.0) gm/dL Hct 29.4 L (34.0-46.0) % MCV 104.1 H (80.0-100.0) fL Plt Count 141 L (150-450) k/uL Neutrophils # 12.6 H (1.3-7.7) k/uL Lymphocytes # 0.6 L (1.0-4.8) k/uL Sodium 136 L (137-145) mmol/L BUN 63 H (7-17) mg/dL Creatinine 5.98 H (0.52-1.04) mg/dL Glucose 126 H (74-99) mg/dL Calcium 6.4 L* (8.4-10.2) mg/dL Microbiology - Last 24 Hours (Table) 06/13/23 19:00 Blood Culture - Preliminary Blood Assessment and Plan Assessment: 1. Fall with rhabdomyolysis 2. Urinary tract infection 3. E. coli bacteremia 4. Acute kidney injury secondary to ATN, started on hemodialysis today 5. Elevated liver liver enzymes 6. Left periprosthetic lateral condyle fracture of the distal femur. Orthopedic services are following conservative management at this time 7. Right lower extremity cellulitis 8. Elevated troponins per cardiology likely secondary to elevated CPK 9. Diarrhea. Patient was negative for C. diff was given Lomotil Infectious disease, cardiology, nephrology and orthopedic services are following Patient started on hemodialysis on 06/13/2023 Patient remains on IV antibiotics Repeat labs ordered
--- NOTE | 2023-06-15 10:57 | CDI ---
Documentation Clarification Form Date: 06/15/2023 From: Carolyn Payne Admit Date: 06/11/2023 01:30:00 AM Patient Name: Dania Vergara Visit Number: [id number] ATTENTION: The Clinical Documentation Specialists (CDI) and [facility] Coding Staff appreciate your assistance in clarifying documentation. Please respond to the clarification below the line at the bottom and electronically sign. The CDI & [facility] Coding staff will review the response and follow-up if needed. Please note: Queries are made part of the Legal Health Record. If you have any questions, please contact the author of this message via ITS. Dr. Ten Guerrero Rhabdomyolysis is documented in the medical record. Additional clarification regarding the type of rhabdomyolysis is requested. History/Risk Factors: 82yo presented after a fall and was unable to get up after. She has a L periprosthetic lateral condyle fracture of the distal femur, rhabdomyolysis, RLE cellulitis and ATN 2nd to the rhabdo. Clinical Indicators: Labs 06/10: Na 136, BUN 33, Creat 2.66, [place] 2.7, [place] [address], CK-MB 117, trop 0.127 Treatment: IV fluid, monitoring Please clarify the type of rhabdomyolysis, if known: [ x ] Traumatic rhabdomyolysis due to fall [ ] Traumatic rhabdomyolysis due to prolonged immobility [ ] Non traumatic rhabdomyolysis due to infection and sepsis [ ] Other, please specify [ ] Unable to Determine (Template Last Revised: December 2020) MTDD
--- NOTE | 2023-06-15 13:05 | CDI ---
Documentation Clarification Form Date: 06/15/2023 From: Carolyn Payne Phone: [phone] Admit Date: 06/11/2023 01:30:00 AM Patient Name: Dania Vergara Visit Number: [id number] ATTENTION: The Clinical Documentation Specialists (CDI) and [facility] Coding Staff appreciate your assistance in clarifying documentation. Please respond to the clarification below the line at the bottom and electronically sign. The CDI & [facility] Coding staff will review the response and follow-up if needed. Please note: Queries are made part of the Legal Health Record. If you have any questions, please contact the author of this message via ITS. Dr. Ten Guerrero A fracture is documented in the medical record. Additional clarification regarding the etiology of the fracture is requested. History/Risk Factors: 82yo fell and was unable to get up. Pt presented with a femur fracture, acute renal failure, rhabdomyolysis and RLE cellulitis. Clinical Indications: 82yo presented with a left lateral condyle periprosthetic femur fracture after a ground level fall. Pt has a history of osteopenia. X-Ray Results: L hip 06/10: degree of osteopenia limits assessment for a nondisplaced fracture L knee 06/10: Osteopenia Treatment: conservative management, Vitamin D2 Please clarify the etiology of the fracture, if known: [ ] Traumatic [ ] Pathological due to osteopenia [ ] Pathological 2nd to osteopenia in the setting of a ground-level fall [ ] Other (please specify): [ ] Unable to determine (Template Last Revised: December 2020) MTDD
[2023-06-15 13:25] LABS: HCT 27.6 % (34.0-46.0); HGB 8.7 gm/dL (11.4-16.0); Hypochromasia Marked; MCH 32.2 pg (25.0-35.0); MCHC 31.4 g/dL (31.0-37.0); MCV 102.6 fL (80.0-100.0); Macrocytosis Slight; Mean Platelet Volume 9.3; RBC 2.69 m/uL (3.80-5.40); RDW 14.3 % (11.5-15.5)
--- NOTE | 2023-06-15 13:41 | P.PN ---
Subjective Patient is seen for follow-up for acute kidney injury. Patient was admitted with history of fall and was found to have fracture of the distal part of the femur on the left side. She was also noted to have rhabdomyolysis. CK level is trending down. It was 00[address] on 06/12/2023. Blood pressure has been low. Urine output has been significantly low. Serum creatinine increased to 5.9 mg/dL and patient was started on hemodialysis on 06/14/2023 Feeling better today with improvement in appetite. Patient is scheduled for hemodialysis again today. No significant urine output noted. Objective - Vital Signs Vital signs: Vital Signs Temp 97.8 F 06/15/23 12:36 Pulse 68 06/15/23 12:36 Resp 16 06/15/23 12:36 BP 120/72 06/15/23 12:36 Pulse Ox 98 06/15/23 12:36 FiO2 Intake & Output 06/14/23 06/15/23 06/15/23 18:59 06:59 18:59 Intake Total 6734 537 9325 Output Total 800 Balance 806 093 3782 Intake: Oral 2997 775 0715 Hemodialysis 300 Output: Hemodialysis 800 Other: Voiding Method Indwelling Catheter Indwelling Catheter Indwelling Catheter # Voids 0 # Bowel Movements 0 - Exam Patient is awake, comfortable, no acute distress Examination of the heart S1 and S2 Examination of the lungs bilateral breath sounds are heard Abdomen is soft nontender Examination of lower extremities shows left lower extremity in brace. Edema noted 1+ bilateral Right lower extremity is wrapped [employer] exam grossly intact - Labs CBC & Chem 7: 06/14/23 09:00 06/14/23 10:20 Labs: Microbiology - Last 24 Hours (Table) 06/13/23 19:00 Blood Culture - Preliminary Blood Assessment and Plan Assessment: 1. Acute kidney injury, ATN, currently oliguric secondary to rhabdo my lysis and borderline low blood pressure. UA shows 2+ protein and large blood and WBCs more than 182. Continue midodrine for low blood pressure. Ultrasound shows no hydronephrosis. Status post right femoral permacath placement. Started hemodialysis 06/14/2023 due to poor urine output and worsening renal function. 2. Lactic acidosis 3. Rhabdo myolysis status post fall. 4. Status post fall with fracture of the distal femur on the left side around the prosthesis. 5. Hypocalcemia with corrected calcium at 7.1 mg/dL. Serum albumin is 2.1. 25-hydroxy D level was low at 10. This will be replaced 6. Volume overload Plan: Repeat hemodialysis today and in a.m. Continue with vitamin D Discontinue IV fluids Increase UF to about 1-1.2 L with hemodialysis today. IV Lasix Continue to encourage increase oral intake Continue to avoid nephrotoxic agents and monitor for recovery of renal function. Urine output remains low at this time.
[2023-06-15 13:46] LABS: ALT 136 U/L (4-34); AST 154 U/L (14-36); Albumin 2.1 g/dL (3.5-5.0); Alkaline Phosphatase 80 U/L (38-126); Anion Gap 9 mmol/L; Blood Urea Nitrogen 57 mg/dL (7-17); Calcium 7.5 mg/dL (8.4-10.2); Carbon Dioxide 23 mmol/L (22-30); Chloride 104 mmol/L (98-107); Glucose 110 mg/dL (74-99); Potassium 3.9 mmol/L (3.5-5.1); Sodium 136 mmol/L (137-145); Total Bilirubin 0.3 mg/dL (0.2-1.3); Total Protein 4.5 g/dL (6.3-8.2)
[2023-06-15 13:53] LABS: African American GFR (CKD) 8 (>60 ml/min/1.73 sqM); Non-African American GFR(CKD) 7 (>60 ml/min/1.73 sqM)
[2023-06-15 18:47] LABS: Band Neutrophils % 3 %; Eosinophils # (M) 0.13 k/uL (0-0.7); Lymphocytes # (M) 1.04 k/uL (1.0-4.8); Metamyelocytes # (M) 0.52 k/uL (0); Metamyelocytes % 4 %; Monocytes # (M) 0.78 k/uL (0-1.0); Myelocytes # (M) 0.78 k/uL (0); Myelocytes % 6 %; Neutrophils % (M) 74 %; Nucleated Red Blood Cells 0 /100 WBC (0-0); Total Cells Counted 200
[2023-06-15 18:49] LABS: Polychromasia Present
[2023-06-15] MEDS: FUROSEMIDE 10 MG/ML 10 ML VIAL IV SCH (21:17)
[2023-06-16] MEDS: CALCIUM ACETATE 667 MG TAB PO SCH ×3 (06:39→16:24)
[2023-06-16] MEDS: MORPHINE SULFATE 4 MG/ML SYRINGE IV PRN ×2 (06:40→11:56)
[2023-06-16 09:18] LABS: Basophils # (A) 0.1 k/uL (0-0.2); Basophils % (A) 1 %; Eosinophils # (A) 0.4 k/uL (0-0.7); Eosinophils % (A) 3 %; HCT 25.7 % (34.0-46.0); Hypochromasia Moderate; Lymphocytes # (A) 0.7 k/uL (1.0-4.8); Lymphocytes % (A) 5 %; MCH 31.7 pg (25.0-35.0); MCV 102.3 fL (80.0-100.0); Macrocytosis Slight; Mean Platelet Volume 9.4; Monocytes # (A) 0.7 k/uL (0-1.0); Monocytes % (A) 5 %; Neutrophils # (A) 11.4 k/uL (1.3-7.7); Neutrophils % (A) 84 %; Platelet Count 230 k/uL (150-450); RBC 2.51 m/uL (3.80-5.40); RDW 14.3 % (11.5-15.5); WBC 13.6 k/uL (3.8-10.6)
[2023-06-16 09:29] LABS: ALT 108 U/L (4-34); AST 96 U/L (14-36); African American GFR (CKD) 12 (>60 ml/min/1.73 sqM); Alkaline Phosphatase 66 U/L (38-126); Anion Gap 2 mmol/L; Blood Urea Nitrogen 41 mg/dL (7-17); Calcium 7.4 mg/dL (8.4-10.2); Carbon Dioxide 29 mmol/L (22-30); Chloride 102 mmol/L (98-107); Glucose 126 mg/dL (74-99); Non-African American GFR(CKD) 10 (>60 ml/min/1.73 sqM); Potassium 3.9 mmol/L (3.5-5.1); Sodium 133 mmol/L (137-145); Total Bilirubin 0.3 mg/dL (0.2-1.3); Total Protein 4.4 g/dL (6.3-8.2)
[2023-06-16] MEDS: MONTELUKAST 10 MG TAB PO SCH (11:56)
[2023-06-16] MEDS: CALCIUM CARBONATE 500 MG CHEWABLE PO SCH ×3 (11:56→21:04)
[2023-06-16] MEDS: FUROSEMIDE 10 MG/ML 10 ML VIAL IV SCH ×2 (11:56→21:04)
[2023-06-16] MEDS: ERGOCALCIFEROL 1,250 MCG (50,000 IU) CAPSULE PO SCH (12:06)
--- NOTE | 2023-06-16 12:35 | P.PN ---
Subjective Patient is seen for follow-up for acute kidney injury. Patient was admitted with history of fall and was found to have fracture of the distal part of the femur on the left side. She was also noted to have rhabdomyolysis. CK level is trending down. It was 4147 on 06/15/2023 Blood pressure has been low. Urine output has been significantly low. Serum creatinine increased to 5.9 mg/dL and patient was started on hemodialysis on 06/14/2023 Feeling better today with improvement in appetite. Seen on hemodialysis today. Blood flows have been low around 200 mL per minute. Catheter is quite positional. Son is present at bedside Overall feeling better. Urine output remains low Objective - Vital Signs Vital signs: Vital Signs Temp 98.5 F 06/16/23 09:13 Pulse 78 06/16/23 11:21 Resp 17 06/16/23 11:21 BP 120/48 06/16/23 11:21 Pulse Ox 96 06/16/23 11:21 FiO2 Intake & Output 06/15/23 06/16/23 06/16/23 18:59 06:59 18:59 Intake Total 1780 0 0 Output Total 1475 100 Balance 305 0 -100 Weight 121 kg Intake: Oral 1480 0 0 Hemodialysis 300 Output: Urine 175 100 Hemodialysis 1300 Other: Voiding Method Indwelling Catheter Indwelling Catheter Indwelling Catheter # Bowel Movements 1 - Exam Patient is awake, comfortable, no acute distress Examination of the heart S1 and S2 Examination of the lungs bilateral breath sounds are heard Abdomen is soft nontender Examination of lower extremities shows left lower extremity in brace. Edema noted 1+ bilateral Right lower extremity is wrapped [employer] HE[employer] BUILDER exam grossly intact - Labs CBC & Chem 7: 06/16/23 08:55 06/16/23 08:55 Labs: Abnormal Lab Results - Last 24 Hours (Table) 06/15/23 06/15/23 06/15/23 Range/Units 13:10 13:10 13:10 WBC 13.0 H (3.8-10.6) k/uL RBC 2.69 L (3.80-5.40) m/uL Hgb 8.7 L (11.4-16.0) gm/dL Hct 27.6 L (34.0-46.0) % MCV 102.6 H (80.0-100.0) fL Neutrophils # (1.3-7.7) k/uL Neutrophils # (Manual) 10.00 H (1.3-7.7) k/uL Lymphocytes # (1.0-4.8) k/uL Metamyelocytes # (Man) 0.52 H (0) k/uL Myelocytes # (Manual) 0.78 H (0) k/uL Sodium 136 L (137-145) mmol/L BUN 57 H (7-17) mg/dL Creatinine 5.31 H (0.52-1.04) mg/dL Glucose 110 H (74-99) mg/dL Calcium 7.5 L (8.4-10.2) mg/dL AST 154 H (14-36) U/L ALT 136 H (4-34) U/L Creatine Kinase 4147 H* (30-135) U/L Total Protein 4.5 L (6.3-8.2) g/dL Albumin 2.1 L (3.5-5.0) g/dL 06/16/23 06/16/23 Range/Units 08:55 08:55 WBC 13.6 H (3.8-10.6) k/uL RBC 2.51 L (3.80-5.40) m/uL Hgb 8.0 L (11.4-16.0) gm/dL Hct 25.7 L (34.0-46.0) % MCV 102.3 H (80.0-100.0) fL Neutrophils # 11.4 H (1.3-7.7) k/uL Neutrophils # (Manual) (1.3-7.7) k/uL Lymphocytes # 0.7 L (1.0-4.8) k/uL Metamyelocytes # (Man) (0) k/uL Myelocytes # (Manual) (0) k/uL Sodium 133 L (137-145) mmol/L BUN 41 H (7-17) mg/dL Creatinine 3.93 H (0.52-1.04) mg/dL Glucose 126 H (74-99) mg/dL Calcium 7.4 L (8.4-10.2) mg/dL AST 96 H (14-36) U/L ALT 108 H (4-34) U/L Creatine Kinase (30-135) U/L Total Protein 4.4 L (6.3-8.2) g/dL Albumin 2.0 L (3.5-5.0) g/dL Microbiology - Last 24 Hours (Table) 06/13/23 19:00 Blood Culture - Preliminary Blood Assessment and Plan Assessment: 1. Acute kidney injury, ATN, currently oliguric secondary to rhabdo myolysis and borderline low blood pressure. UA shows 2+ protein and large blood and WBCs more than 182. Continue midodrine for low blood pressure. Ultrasound shows no hydronephrosis. Status post right femoral permacath placement. Started hemodialysis 06/14/2023 due to poor urine output and worsening renal function. 2. Lactic acidosis 3. Rhabdo myolysis status post fall. 4. Status post fall with fracture of the distal femur on the left side around the prosthesis. 5. Hypocalcemia with corrected calcium at 7.1 mg/dL on 06/13/2023 Serum albumin is 2.1. 25-hydroxy D level was low at 10, currently on replacement 6. Volume overload Plan: Repeat hemodialysis today and in a.m. Continue with vitamin D Increase UF to about 1-1.2 L with hemodialysis today. IV Lasix Continue to encourage increase oral intake Continue to avoid nephrotoxic agents and monitor for recovery of renal function. Urine output remains low at this time.
--- NOTE | 2023-06-16 17:21 | P.PN ---
Subjective Progress Note Date: 06/16/23 This is an 82-year-old female patient who originally presented to the hospital after she sustained a fall and was on the ground for quite some time before patient was able to get help. Patient apparently had diarrhea prior to fall and was not eating or drinking much. Patient has a past medical history of hypertension hyperlipidemia. Upon arrival patient was found to have a creatinine kinase level of 40,048 white blood cell 31.2 creatinine 2.66 bun 33 AST 694 and ALT 114. Patient was also positive for UTI which was followed by positive blood culture was also found to have a left para-prosthetic lateral condyle fracture of the distal femur. Orthopedic services, nephrology and infectious disease is following. I am resuming care of patient on 06/13/2023 Dr. Gee previously covering On 06/13/2023 patient alert and oriented 3 currently sitting up in bed. Per orthopedic services continue with conservative management. Awaiting lab work but creatinine significantly increased yesterday to 4.24 and 149. Nephrology services are following. Patient remains on IV antibiotics infectious disease services are following. Current vital signs temp 98.0, heart rate 73, respiratory rate 20, blood pressure 124/65 and pulse ox 95% on 2 L On 06/14/2023 patient was seen and examined on the telemetry floor she is alert and oriented 3 in no apparent distress, she is resting in bed, she is compl aining of lower extremity pain, otherwise she denies any complaints at this time, she underwent her first session of hemodialysis today, there is no fever or chills no headache or dizziness no chest pain no shortness of breath no cough no nausea or vomiting no abdominal pain no diarrhea and no urinary symptoms. On 06/15/2023 patient alert and oriented 3 currently resting comfortably in bed. Patient was started on hemodialysis plans for additional hemodialysis today per nephrology services. Current vital signs temp 98.1, heart rate 73, respiratory 16, blood pressure 11/23/1972 with pulse ox 98% on 2 L. labwork currently pending. On 06/16/2023 patient was seen and examined on the medical floor she is alert and oriented 3 in no apparent distress there is no fever or chills no headache or dizziness no chest pain no shortness of breath no cough no nausea or vomiting no abdominal pain no diarrhea and no urinary symptoms. She underwent hemodialysis again today, will continue to follow closely, PT and OT consult. Objective - Vital Signs Vital signs: Vital Signs Temp 98.5 F 06/16/23 12:38 Pulse 78 06/16/23 11:21 Resp 18 06/16/23 15:16 BP 133/68 06/16/23 15:16 Pulse Ox 87 L 06/16/23 15:16 FiO2 Intake & Output 06/15/23 06/16/23 06/16/23 18:59 06:59 18:59 Intake Total 1780 0 400 Output Total 1475 2000 Balance 305 0 -1600 Weight 121 kg Intake: Oral 1480 0 0 Hemodialysis 300 400 Output: Urine 175 100 Hemodialysis 1300 1900 Other: Voiding Method Indwelling Catheter Indwelling Catheter Indwelling Catheter # Bowel Movements 1 - Exam In general patient is alert and oriented x 3 in no distress HEENT head normocephalic and atraumatic Neck is supple no JVD no goiter no lymphadenopathy no carotid bruit Chest examination is clear to auscultation no crackles no wheezing Cardiac exam reveals regular heart sounds S1 and S2 no gallops no murmurs Abdomen is soft nontender no organomegaly with normal bowel sounds Extremity exam reveals no edema no cyanosis or clubbing Neurological examination reveals no gross focal deficits - Labs CBC & Chem 7: 06/16/23 08:55 06/16/23 08:55 Labs: Abnormal Lab Results - Last 24 Hours (Table) 06/15/23 06/15/23 06/16/23 Range/Units 13:10 13:10 08:55 WBC 13.6 H (3.8-10.6) k/uL RBC 2.51 L (3.80-5.40) m/uL Hgb 8.0 L (11.4-16.0) gm/dL Hct 25.7 L (34.0-46.0) % MCV 102.3 H (80.0-100.0) fL Neutrophils # 11.4 H (1.3-7.7) k/uL Neutrophils # (Manual) 10.00 H (1.3-7.7) k/uL Lymphocytes # 0.7 L (1.0-4.8) k/uL Metamyelocytes # (Man) 0.52 H (0) k/uL Myelocytes # (Manual) 0.78 H (0) k/uL Sodium 136 L (137-145) mmol/L BUN 57 H (7-17) mg/dL Creatinine 5.31 H (0.52-1.04) mg/dL Glucose 110 H (74-99) mg/dL Calcium 7.5 L (8.4-10.2) mg/dL AST 154 H (14-36) U/L ALT 136 H (4-34) U/L Total Protein 4.5 L (6.3-8.2) g/dL Albumin 2.1 L (3.5-5.0) g/dL 06/16/23 Range/Units 08:55 WBC (3.8-10.6) k/uL RBC (3.80-5.40) m/uL Hgb (11.4-16.0) gm/dL Hct (34.0-46.0) % MCV (80.0-100.0) fL Neutrophils # (1.3-7.7) k/uL Neutrophils # (Manual) (1.3-7.7) k/uL Lymphocytes # (1.0-4.8) k/uL Metamyelocytes # (Man) (0) k/uL Myelocytes # (Manual) (0) k/uL Sodium 133 L (137-145) mmol/L BUN 41 H (7-17) mg/dL Creatinine 3.93 H (0.52-1.04) mg/dL Glucose 126 H (74-99) mg/dL Calcium 7.4 L (8.4-10.2) mg/dL AST 96 H (14-36) U/L ALT 108 H (4-34) U/L Total Protein 4.4 L (6.3-8.2) g/dL Albumin 2.0 L (3.5-5.0) g/dL Microbiology - Last 24 Hours (Table) 06/13/23 19:00 Blood Culture - Preliminary Blood Assessment and Plan Assessment: 1. Fall with rhabdomyolysis 2. Urinary tract infection 3. E. coli bacteremia 4. Acute kidney injury secondary to ATN, started on hemodialysis today 5. Elevated liver liver enzymes 6. Left periprosthetic lateral condyle fracture of the distal femur. Ortho pedic services are following conservative management at this time 7. Right lower extremity cellulitis 8. Elevated troponins per cardiology likely secondary to elevated CPK 9. Diarrhea. Patient was negative for C. diff was given Lomotil Infectious disease, cardiology, nephrology and orthopedic services are following Patient started on hemodialysis on 06/13/2023 Patient remains on IV antibiotics Repeat labs ordered
[2023-06-16] MEDS: NYSTATIN 100,000 UNIT/GM POWD 15 GM TOPICAL SCH (21:04)
[2023-06-17] MEDS: CALCIUM ACETATE 667 MG TAB PO SCH ×3 (06:30→17:10)
--- NOTE | 2023-06-17 07:52 | P.PN ---
Subjective Progress Note Date: 06/15/23 Principal diagnosis: UTI and bacteremia patient is a 82-year-old female with a past medical history significant for hypertension hyperlipidemia history of right lower extremity venous stasis ulcer and cellulitis who was brought to the hospital yesterday afternoon after apparent the patient have a fall at home , Left knee x-ray did shows small joint effusion and small periprosthetic fracture along the medial aspect , patient also have a elevated white count and positive UA and blood cultures came back positive. Patient has been started on dialysis for worsening kidney function On today's evaluation that is 06/15/2023 the patient remains to be afebrile, the patient is breathing comfortably on room air patient denies having any chest pain or shortness of the cough no abdominal pain or any worsening pain to the lower extremity. Patient white count is down to 13,000 creatinine is 5.31 blood culture repeat 06/13/2023 so far negative Objective - Vital Signs Vital signs: Vital Signs Temp 97.8 F 06/15/23 12:36 Pulse 68 06/15/23 12:36 Resp 16 06/15/23 12:36 BP 120/72 06/15/23 12:36 Pulse Ox 98 06/15/23 12:36 FiO2 Intake & Output 06/14/23 06/15/23 06/15/23 18:59 06:59 18:59 Intake Total 7509 235 1184 Output Total 800 Balance 308 309 5994 Intake: Oral 9942 654 2673 Hemodialysis 300 Output: Hemodialysis 800 Other: Voiding Method Indwelling Catheter Indwelling Catheter Indwelling Catheter # Voids 0 # Bowel Movements 0 - Exam GENERAL DESCRIPTION: An elderly female lying in bed in no distress RESPIRATORY SYSTEM: Unlabored breathing , decreased breath sounds at bases HEART: S1 S2 regular rate and rhythm , ABDOMEN: Soft , no tenderness EXTREMITIES: Right lower segment is currently wrapped no drainage on the dressing - Labs CBC & Chem 7: 06/16/23 08:55 06/16/23 08:55 Labs: Microbiology - Last 24 Hours (Table) 06/13/23 19:00 Blood Culture - Preliminary Blood Assessment and Plan (1) Sepsis Current Visit: Yes Status: Acute Code(s): A41.9 - SEPSIS, UNSPECIFIED ORGANISM SNOMED Code(s): 64341330 (2) Gram-negative bacteremia Current Visit: Yes Status: Acute Code(s): R78.81 - BACTEREMIA SNOMED Code(s): 472652714332 (3) Urinary tract infection Current Visit: Yes Status: Acute Code(s): N39.0 - URINARY TRACT INFECTION, SITE NOT SPECIFIED SNOMED Code(s): 72412528 Plan: 1patient presented to hospital with weakness did have a fall leading to the left distal femur/periprosthetic joint infection patient also have significant elevated white count positive UA and urinary symptoms concerning for symptomatic UTI clinically doubt pneumonia 2patient did have E. coli bacteremia likely secondary urinary source, ultrasound of the kidney and bladder area with no evidence of any obstructive uropathy 3-right lower extremity venous stasis ulcer and no cellulitis continue Local wound care to continue with Aquacel silver dressing followed by compression dressing will be changed to weekly. 4patient with E. coli both in the blood and the urine which is a sensitive bacteria continue with Rocephin while inpatient Dictation was produced using [email or web address] dictation software. please excuse any grammatical, word or spelling errors. Time with Patient: Less than 30
--- NOTE | 2023-06-17 07:55 | P.PN ---
Subjective Progress Note Date: 06/16/23 Principal diagnosis: UTI and bacteremia patient is a 82-year-old female with a past medical history significant for hypertension hyperlipidemia history of right lower extremity venous stasis ulcer and cellulitis who was brought to the hospital yesterday afternoon after apparent the patient have a fall at home , Left knee x-ray did shows small joint effusion and small periprosthetic fracture along the medial aspect , patient also have a elevated white count and positive UA and blood cultures came back positive. Patient has been started on dialysis for worsening kidney function On today's evaluation that is 06/16/2023 the patient denies having any fever or any chills, the patient is breathing comfortably on room air patient denies having any chest pain shortness of breath or cough no nausea vomiting abdominal pain no diarrhea. The patient white count is mildly elevated at 13.6 creatinine 3.93 repeat blood cultures 06/13/2023 so far negative Objective - Vital Signs Vital signs: Vital Signs Temp 98.5 F 06/16/23 12:38 Pulse 78 06/16/23 11:21 Resp 17 06/16/23 11:21 BP 126/69 06/16/23 12:38 Pulse Ox 96 06/16/23 11:21 FiO2 Intake & Output 06/15/23 06/16/23 06/16/23 18:59 06:59 18:59 Intake Total 1780 0 400 Output Total 1475 2000 Balance 305 0 -1600 Weight 121 kg Intake: Oral 1480 0 0 Hemodialysis 300 400 Output: Urine 175 100 Hemodialysis 1300 1900 Other: Voiding Method Indwelling Catheter Indwelling Catheter Indwelling Catheter # Bowel Movements 1 - Exam GENERAL DESCRIPTION: An elderly female lying in bed in no distress RESPIRATORY SYSTEM: Unlabored breathing , decreased breath sounds at bases HEART: S1 S2 regular rate and rhythm , ABDOMEN: Soft , no tenderness EXTREMITIES: Right lower segment is currently wrapped no drainage on the dressing - Labs CBC & Chem 7: 06/16/23 08:55 06/16/23 08:55 Labs: Abnormal Lab Results - Last 24 Hours (Table) 06/15/23 06/15/23 06/15/23 Range/Units 13:10 13:10 13:10 WBC 13.0 H (3.8-10.6) k/uL RBC 2.69 L (3.80-5.40) m/uL Hgb 8.7 L (11.4-16.0) gm/dL Hct 27.6 L (34.0-46.0) % MCV 102.6 H (80.0-100.0) fL Neutrophils # (1.3-7.7) k/uL Neutrophils # (Manual) 10.00 H (1.3-7.7) k/uL Lymphocytes # (1.0-4.8) k/uL Metamyelocytes # (Man) 0.52 H (0) k/uL Myelocytes # (Manual) 0.78 H (0) k/uL Sodium 136 L (137-145) mmol/L BUN 57 H (7-17) mg/dL Creatinine 5.31 H (0.52-1.04) mg/dL Glucose 110 H (74-99) mg/dL Calcium 7.5 L (8.4-10.2) mg/dL AST 154 H (14-36) U/L ALT 136 H (4-34) U/L Creatine Kinase 4147 H* (30-135) U/L Total Protein 4.5 L (6.3-8.2) g/dL Albumin 2.1 L (3.5-5.0) g/dL 06/16/23 06/16/23 Range/Units 08:55 08:55 WBC 13.6 H (3.8-10.6) k/uL RBC 2.51 L (3.80-5.40) m/uL Hgb 8.0 L (11.4-16.0) gm/dL Hct 25.7 L (34.0-46.0) % MCV 102.3 H (80.0-100.0) fL Neutrophils # 11.4 H (1.3-7.7) k/uL Neutrophils # (Manual) (1.3-7.7) k/uL Lymphocytes # 0.7 L (1.0-4.8) k/uL Metamyelocytes # (Man) (0) k/uL Myelocytes # (Manual) (0) k/uL Sodium 133 L (137-145) mmol/L BUN 41 H (7-17) mg/dL Creatinine 3.93 H (0.52-1.04) mg/dL Glucose 126 H (74-99) mg/dL Calcium 7.4 L (8.4-10.2) mg/dL AST 96 H (14-36) U/L ALT 108 H (4-34) U/L Creatine Kinase (30-135) U/L Total Protein 4.4 L (6.3-8.2) g/dL Albumin 2.0 L (3.5-5.0) g/dL Microbiology - Last 24 Hours (Table) 06/13/23 19:00 Blood Culture - Preliminary Blood Assessment and Plan (1) Sepsis Current Visit: Yes Status: Acute Code(s): A41.9 - SEPSIS, UNSPECIFIED ORGANISM SNOMED Code(s): 88458566 (2) Gram-negative bacteremia Current Visit: Yes Status: Acute Code(s): R78.81 - BACTEREMIA SNOMED Code(s): 431400811565 (3) Urinary tract infection Current Visit: Yes Status: Acute Code(s): N39.0 - URINARY TRACT INFECTION, SITE NOT SPECIFIED SNOMED Code(s): 22242410 Plan: 1right lower extremity venous stasis ulcer and no cellulitis continue Local wound care to continue with Aquacel silver dressing followed by compression dressing will be changed to weekly 2patient did have E. coli bacteremia likely secondary urinary source, ultrasound of the kidney and bladder area with no evidence of any obstructive uropathy, Repeat blood cultures has been negative so far we will cover the p atient on Rocephin 2 g daily while inpatient and transition to short course of oral Ceftin on discharge and monitor clinical course closely. Son at the bedside questions concerns were answered Dictation was produced using [employer] dictation software. please excuse any grammatical, word or spelling errors. Time with Patient: Less than 30
[2023-06-17] MEDS: FUROSEMIDE 10 MG/ML 10 ML VIAL IV SCH ×2 (09:02→20:55)
[2023-06-17] MEDS: CALCIUM CARBONATE 500 MG CHEWABLE PO SCH ×3 (09:02→20:56)
[2023-06-17] MEDS: MONTELUKAST 10 MG TAB PO SCH (09:02)
[2023-06-17] MEDS: NYSTATIN 100,000 UNIT/GM POWD 15 GM TOPICAL SCH ×3 (09:03→21:01)
--- NOTE | 2023-06-17 09:57 | P.PN ---
Subjective Progress Note Date: 06/17/23 This is an 82-year-old female patient who originally presented to the hospital after she sustained a fall and was on the ground for quite some time before patient was able to get help. Patient apparently had diarrhea prior to fall and was not eating or drinking much. Patient has a past medical history of hypertension hyperlipidemia. Upon arrival patient was found to have a creatinine kinase level of 40,048 white blood cell 31.2 creatinine 2.66 bun 33 AST 694 and ALT 114. Patient was also positive for UTI which was followed by positive blood culture was also found to have a left para-prosthetic lateral condyle fracture of the distal femur. Orthopedic services, nephrology and infectious disease is following. I am resuming care of patient on 06/13/2023 Dr. Gee previously covering On 06/13/2023 patient alert and oriented 3 currently sitting up in bed. Per orthopedic services continue with conservative management. Awaiting lab work but creatinine significantly increased yesterday to 4.24 and 149. Nephrology services are following. Patient remains on IV antibiotics infectious disease services are following. Current vital signs temp 98.0, heart rate 73, respiratory rate 20, blood pressure 124/65 and pulse ox 95% on 2 L On 06/14/2023 patient was seen and examined on the telemetry floor she is alert and oriented 3 in no apparent distress, she is resting in bed, she is compl aining of lower extremity pain, otherwise she denies any complaints at this time, she underwent her first session of hemodialysis today, there is no fever or chills no headache or dizziness no chest pain no shortness of breath no cough no nausea or vomiting no abdominal pain no diarrhea and no urinary symptoms. On 06/15/2023 patient alert and oriented 3 currently resting comfortably in bed. Patient was started on hemodialysis plans for additional hemodialysis today per nephrology services. Current vital signs temp 98.1, heart rate 73, respiratory 16, blood pressure 11/23/1973 with pulse ox 98% on 2 L. labwork currently pending. On 06/16/2023 patient was seen and examined on the medical floor she is alert and oriented 3 in no apparent distress there is no fever or chills no headache or dizziness no chest pain no shortness of breath no cough no nausea or vomiting no abdominal pain no diarrhea and no urinary symptoms. She underwent hemodialysis again today, will continue to follow closely, PT and OT consult. On 06/17/2023 patient is alert and oriented 3. Patient remains on IV Lasix. Left upper extremity having increased edema will order venous Doppler to rule out DVT. Creatinine improving to 3.93 bun 41. Current vital signs temp 98.7, heart rate 79, respiratory rate 15, blood pressure 140/70 with a pulse ox of 98% on 2 L Objective - Vital Signs Vital signs: Vital Signs Temp 98.7 F 06/17/23 08:59 Pulse 79 06/17/23 08:59 Resp 18 06/17/23 09:15 BP 140/70 06/17/23 08:59 Pulse Ox 98 06/17/23 08:59 FiO2 Intake & Output 06/16/23 06/17/23 06/17/23 18:59 06:59 18:59 Intake Total 820 360 330 Output Total 2000 75 Balance -1180 285 330 Weight 91.5 kg Intake: Oral 420 360 330 Hemodialysis 400 Output: Urine 100 75 Hemodialysis 1900 Other: Voiding Method Indwelling Catheter Indwelling Catheter Indwelling Catheter - Exam In general patient is alert and oriented x 3 in no distress HEENT head normocephalic and atraumatic Neck is supple no JVD no goiter no lymphadenopathy no carotid bruit Chest examination is clear to auscultation no crackles no wheezing Cardiac exam reveals regular heart sounds S1 and S2 no gallops no murmurs Abdomen is soft nontender no organomegaly with normal bowel sounds Extremity exam reveals no edema no cyanosis or clubbing Neurological examination reveals no gross focal deficits - Labs CBC & Chem 7: 06/16/23 08:55 06/16/23 08:55 Labs: Microbiology - Last 24 Hours (Table) 06/13/23 19:00 Blood Culture - Preliminary Blood Assessment and Plan Assessment: 1. Fall with rhabdomyolysis 2. Urinary tract infection 3. E. coli bacteremia 4. Acute kidney injury secondary to ATN, started on hemodialysis today 5. Elevated liver liver enzymes 6. Left periprosthetic lateral condyle fracture of the distal femur. Orthopedic services are following conservative management at this time 7. Right lower extremity cellulitis 8. Elevated troponins per cardiology likely secondary to elevated CPK 9. Diarrhea. Patient was negative for C. diff was given Lomotil 10. Increased swelling to left upper extremity well ordered venous Doppler to rule out DVT. Patient maintained on IV Lasix Infectious disease, cardiology, nephrology and orthopedic services are following Patient started on hemodialysis on 06/13/2023 Patient remains on IV antibiotics Repeat labs ordered
--- NOTE | 2023-06-17 10:53 | US ---
EXAMINATION TYPE: US venous doppler duplex UE LT DATE OF EXAM: 06/17/2023 COMPARISON: NONE CLINICAL INDICATION: Female, 82 years old with history of increase swelling; No redness. Portable inpatient exam SIDE PERFORMED: Left Left Arm: Appears negative for DVT IMPRESSION: Grayscale, color doppler, spectral doppler imaging performed of the deep veins of the upper extremiti es. There is normal flow, compressibility and vascular waveforms.
--- NOTE | 2023-06-17 14:04 | CDI ---
Documentation Clarification Form Date: 06/15/2023 01:06:00 PM From: Carolyn Payne Phone: [phone] Admit Date: 06/11/2023 01:30:00 AM Patient Name: Dania Vergara Visit Number: [id number] ATTENTION: The Clinical Documentation Specialists (CDI) and [facility] Coding Staff appreciate your assistance in clarifying documentation. Please respond to the clarification below the line at the bottom and electronically sign. The CDI & [facility] Coding staff will review the response and follow-up if needed. Please note: Queries are made part of the Legal Health Record. If you have any questions, please contact the author of this message via ITS. Dr. Ten Guerrero A fracture is documented in the medical record. Additional clarification regarding the etiology of the fracture is requested. History/Risk Factors: 82yo fell and was unable to get up. Pt presented with a femur fracture, acute renal failure, rhabdomyolysis and RLE cellulitis. Clinical Indications: 82yo presented with a left lateral condyle periprosthetic femur fracture after a ground level fall. Pt has a history of osteopenia. X-Ray Results: L hip 06/10: degree of osteopenia limits assessment for a nondisplaced fracture L knee 06/10: Osteopenia Treatment: conservative management, Vitamin D2 Please clarify the etiology of the fracture, if known: [ ] Traumatic [ ] Pathological due to osteopenia [ ] Pathological 2nd to osteopenia in the setting of a ground-level fall [ ] Other (please specify): [ ] Unable to determine (Template Last Revised: December 2020) NO FRACTURE FRACTURE WAS RULE OUT ON CT SCAN. CODYD
--- NOTE | 2023-06-17 16:00 | P.PN ---
Subjective Progress Note Date: 06/17/23 Principal diagnosis: UTI and bacteremia patient is a 82-year-old female with a past medical history significant for hypertension hyperlipidemia history of right lower extremity venous stasis ulcer and cellulitis who was brought to the hospital yesterday afternoon after apparent the patient have a fall at home , Left knee x-ray did shows small joint effusion and small periprosthetic fracture along the medial aspect , patient also have a elevated white count and positive UA and blood cultures came back positive. Patient has been started on dialysis for worsening kidney function On today's evaluation that is 06/17/2023, the patient denies any fever or chills, the patient is breathing comfortably on 1 L nasal cannula oxygen but denies having any chest pain or cough no nausea no vomiting no abdominal pain no diarrhea or pain to the right lower extremity. CBC BMP was done today. Repeat Blood culture has been negative Objective - Vital Signs Vital signs: Vital Signs Temp 98.7 F 06/17/23 08:59 Pulse 82 06/17/23 11:38 Resp 17 06/17/23 11:38 BP 132/68 06/17/23 11:38 Pulse Ox 96 06/17/23 11:38 FiO2 Intake & Output 06/16/23 06/17/23 06/17/23 18:59 06:59 18:59 Intake Total 820 360 330 Output Total 2000 75 Balance -1180 285 330 Weight 91.5 kg Intake: Oral 420 360 330 Hemodialysis 400 Output: Urine 100 75 Hemodialysis 1900 Other: Voiding Method Indwelling Catheter Indwelling Catheter Indwelling Catheter - Exam GENERAL DESCRIPTION: An elderly female lying in bed in no distress RESPIRATORY SYSTEM: Unlabored breathing , decreased breath sounds at bases HEART: S1 S2 regular rate and rhythm , ABDOMEN: Soft , no tenderness EXTREMITIES: Right lower segment is currently wrapped no drainage on the dressing - Labs CBC & Chem 7: 06/16/23 08:55 06/16/23 08:55 Labs: Microbiology - Last 24 Hours (Table) 06/13/23 19:00 Blood Culture - Preliminary Blood Assessment and Plan (1) Sepsis Current Visit: Yes Status: Acute Code(s): A41.9 - SEPSIS, UNSPECIFIED ORGANISM SNOMED Code(s): 51641851 (2) Gram-negative bacteremia Current Visit: Yes Status: Acute Code(s): R78.81 - BACTEREMIA SNOMED Code(s): 904194346283 (3) Urinary tract infection Current Visit: Yes Status: Acute Code(s): N39.0 - URINARY TRACT INFECTION, SITE NOT SPECIFIED SNOMED Code(s): 52804357 Plan: 1right lower extremity venous stasis ulcer and no cellulitis continue Local wound care to continue with Aquacel silver dressing followed by compression dressing will be changed to weekly 2patient did have E. coli bacteremia likely secondary urinary source, ultrasound of the kidney and bladder area with no evidence of any obstructive uropathy, Repeat blood cultures has been negative so far 3-patient to continue with Rocephin 2 g daily while inpatient and transition to short course of oral Ceftin on discharge and monitor clinical course closely. Dictation was produced using [employer] dictation software. please excuse any grammatical, word or spelling errors. Time with Patient: Less than 30
[2023-06-17] MEDS ORDERED: DIPHENOX-ATROP 2.5-0.025 MG 1 EACH TAB PO PRN (17:34)
--- NOTE | 2023-06-18 00:32 | P.PN ---
Subjective Patient is seen for follow-up for acute kidney injury. Patient was admitted with history of fall and was found to have fracture of the distal part of the femur on the left side. She was also noted to have rhabdomyolysis. CK level is trending down. It was 4147 on 06/15/2023 Blood pressure has been low. Urine output has been significantly low. Serum creatinine increased to 5.9 mg/dL and patient was started on hemodialysis on 06/14/2023 Feeling better today with improvement in appetite. Blood flow in the catheter has been low around 200 mL per minute. Catheter is quite positional. Overall feeling better. Urine output remains low Objective - Vital Signs Vital signs: Vital Signs Temp 97.9 F 06/17/23 20:00 Pulse 82 06/18/23 00:00 Resp 15 06/18/23 00:00 BP 90/49 06/18/23 00:00 Pulse Ox 90 L 06/18/23 00:00 FiO2 Intake & Output 06/17/23 06/17/23 06/18/23 06:59 18:59 06:59 Intake Total 360 990 Output Total 75 2400 Balance 285 -1410 Weight 91.5 kg Intake: Oral 360 690 Hemodialysis 300 Output: Urine 75 100 Hemodialysis 2300 Other: Voiding Method Indwelling Catheter Indwelling Catheter Indwelling Catheter # Bowel Movements 1 - Exam Patient is awake, comfortable, no acute distress Examination of the heart S1 and S2 Examination of the lungs bilateral breath sounds are heard Abdomen is soft nontender Examination of lower extremities shows left lower extremity in brace. Edema noted 1+ bilateral Right lower extremity is wrapped [employer] exam grossly intact - Labs CBC & Chem 7: 06/16/23 08:55 06/16/23 08:55 Labs: Microbiology - Last 24 Hours (Table) 06/13/23 19:00 Blood Culture - Preliminary Blood Assessment and Plan Assessment: 1. Acute kidney injury, ATN, currently oliguric secondary to rhabdomyolysis and borderline low blood pressure. UA shows 2+ protein and large blood and WBCs more than 182. Continue midodrine for low blood pressure. Ultrasound shows no hydronephrosis. Status post right femoral permacath placement. Started hemodialysis 06/14/2023 due to poor urine output and worsening renal function. 2. Lactic acidosis 3. Rhabdo myolysis status post fall. 4. Status post fall with fracture of the distal femur on the left side around the prosthesis. 5. Hypocalcemia with corrected calcium at 7.1 mg/dL on 06/13/2023 Serum albumin is 2.1. 25-hydroxy D level was low at 10, currently on replacement 6. Volume overload Plan: Repeat hemodialysis today and in a.m. Inform vascular surgery regarding poorly function femoral tunneled catheter. Continue with vitamin D Increase UF to about 1-1.2 L with hemodialysis today. Continue to encourage increase oral intake Continue to avoid nephrotoxic agents and monitor for recovery of renal function. Urine output remains low at this time.
[2023-06-18] MEDS: CALCIUM ACETATE 667 MG TAB PO SCH ×3 (06:22→17:32)
[2023-06-18] MEDS: MONTELUKAST 10 MG TAB PO SCH (08:34)
[2023-06-18] MEDS: CALCIUM CARBONATE 500 MG CHEWABLE PO SCH ×3 (08:34→20:29)
[2023-06-18] MEDS: FUROSEMIDE 10 MG/ML 10 ML VIAL IV SCH ×2 (08:34→20:29)
[2023-06-18] MEDS: NYSTATIN 100,000 UNIT/GM POWD 15 GM TOPICAL SCH ×2 (08:35→20:30)
--- NOTE | 2023-06-18 10:46 | P.PN ---
Subjective Progress Note Date: 06/18/23 This is an 82-year-old female patient who originally presented to the hospital after she sustained a fall and was on the ground for quite some time before patient was able to get help. Patient apparently had diarrhea prior to fall and was not eating or drinking much. Patient has a past medical history of hypertension hyperlipidemia. Upon arrival patient was found to have a creatinine kinase level of 40,048 white blood cell 31.2 creatinine 2.66 bun 33 AST 694 and ALT 114. Patient was also positive for UTI which was followed by positive blood culture was also found to have a left para-prosthetic lateral condyle fracture of the distal femur. Orthopedic services, nephrology and infectious disease is following. I am resuming care of patient on 06/13/2023 Dr. Gee previously covering On 06/13/2023 patient alert and oriented 3 currently sitting up in bed. Per orthopedic services continue with conservative management. Awaiting lab work but creatinine significantly increased yesterday to 4.24 and 149. Nephrology services are following. Patient remains on IV antibiotics infectious disease services are following. Current vital signs temp 98.0, heart rate 73, respiratory rate 20, blood pressure 124/65 and pulse ox 95% on 2 L On 06/14/2023 patient was seen and examined on the telemetry floor she is alert and oriented 3 in no apparent distress, she is resting in bed, she is compl aining of lower extremity pain, otherwise she denies any complaints at this time, she underwent her first session of hemodialysis today, there is no fever or chills no headache or dizziness no chest pain no shortness of breath no cough no nausea or vomiting no abdominal pain no diarrhea and no urinary symptoms. On 06/15/2023 patient alert and oriented 3 currently resting comfortably in bed. Patient was started on hemodialysis plans for additional hemodialysis today per nephrology services. Current vital signs temp 98.1, heart rate 73, respiratory 16, blood pressure 11/23/1972 with pulse ox 98% on 2 L. labwork currently pending. On 06/16/2023 patient was seen and examined on the medical floor she is alert and oriented 3 in no apparent distress there is no fever or chills no headache or dizziness no chest pain no shortness of breath no cough no nausea or vomiting no abdominal pain no diarrhea and no urinary symptoms. She underwent hemodialysis again today, will continue to follow closely, PT and OT consult. On 06/17/2023 patient is alert and oriented 3. Patient remains on IV Lasix. Left upper extremity having increased edema will order venous Doppler to rule out DVT. Creatinine improving to 3.93 bun 41. Current vital signs temp 98.7, heart rate 79, respiratory rate 15, blood pressure 140/70 with a pulse ox of 98% on 2 L On 06/18/2023 patient was seen and examined on the medical floor, she is alert and oriented 3 in no apparent distress, she is complaining of diarrhea, and complaining of generalized pain, otherwise she denies any complaints, there is no fever or chills no headache or dizziness no chest pain no shortness of breath no cough no nausea or vomiting no abdominal pain no blood in the stools no burning with urination no frequency or urgency and no hematuria. Patient has generalized weakness. Temperature today is 98.4 pulse 84 respiration 18 blood pressure 123/56 pulse ox is 92% on 2 L nasal cannula, labs from today are still pending. C. diff EIA yesterday was negative. Objective - Vital Signs Vital signs: Vital Signs Temp 97.9 F 06/17/23 20:00 Pulse 90 06/18/23 04:00 Resp 16 06/18/23 04:00 BP 94/54 06/18/23 04:00 Pulse Ox 90 L 06/18/23 04:00 FiO2 Intake & Output 06/17/23 06/18/23 06/18/23 18:59 06:59 18:59 Intake Total 990 540 Output Total 2400 30 Balance -1410 510 Intake: Oral 690 540 Hemodialysis 300 Output: Urine 100 30 Hemodialysis 2300 Other: Voiding Method Indwelling Catheter Indwelling Catheter # Bowel Movements 1 - Exam In general patient is alert and oriented x 3 in no distress HEENT head normocephalic and atraumatic Neck is supple no JVD no goiter no lymphadenopathy no carotid bruit Chest examination is clear to auscultation no crackles no wheezing Cardiac exam reveals regular heart sounds S1 and S2 no gallops no murmurs Abdomen is soft nontender no organomegaly with normal bowel sounds Extremity exam reveals no edema no cyanosis or clubbing Neurological examination reveals no gross focal deficits - Labs CBC & Chem 7: 06/16/23 08:55 06/16/23 08:55 Labs: Microbiology - Last 24 Hours (Table) 06/13/23 19:00 Blood Culture - Preliminary Blood Assessment and Plan Assessment: 1. Fall with rhabdomyolysis 2. Urinary tract infection 3. E. coli bacteremia 4. Acute kidney injury secondary to ATN, started on hemodialysis today 5. Elevated liver liver enzymes 6. Left periprosthetic lateral condyle fracture of the distal femur. Orthopedic services are following conservative management at this time 7. Right lower extremity cellulitis 8. Elevated troponins per cardiology likely secondary to elevated CPK 9. Diarrhea. Patient was negative for C. diff was given Lomotil 10. Increased swelling to left upper extremity well ordered venous Doppler to rule out DVT. Patient maintained on IV Lasix Infectious disease, cardiology, nephrology and orthopedic services are following Patient started on hemodialysis on 06/13/2023 Patient remains on IV antibiotics Repeat labs ordered
[2023-06-18 11:29] LABS: HCT 24.8 % (34.0-46.0); HGB 7.7 gm/dL (11.4-16.0); Hypochromasia Moderate; MCH 31.8 pg (25.0-35.0); MCHC 31.2 g/dL (31.0-37.0); MCV 101.7 fL (80.0-100.0); Macrocytosis Slight; Mean Platelet Volume 8.8; Platelet Count 273 k/uL (150-450); RBC 2.44 m/uL (3.80-5.40); RDW 14.4 % (11.5-15.5); WBC 20.5 k/uL (3.8-10.6)
--- NOTE | 2023-06-18 11:48 | P.PN ---
Subjective Patient is seen in follow-up for acute kidney injury, hemodialysis dependent. Currently resting in bed. On nasal cannula. Denies chest pain or shortness of breath. Urine output remains low. Has been tolerating ultrafiltration well. Vital signs are stable. General: No acute distress. HEENT: Head exam is unremarkable. LUNGS: No audible rhonchi or wheezes. HEART: Rate and Rhythm are regular. ABDOMEN: Nontender. EXTREMITITES: 2+ edema. Objective - Vital Signs Vital signs: Vital Signs Temp 98.4 F 06/18/23 08:00 Pulse 84 06/18/23 08:00 Resp 18 06/18/23 08:00 BP 123/56 06/18/23 08:00 Pulse Ox 92 L 06/18/23 08:00 FiO2 Intake & Output 06/17/23 06/18/23 06/18/23 18:59 06:59 18:59 Intake Total 990 540 240 Output Total 2400 30 Balance -1410 510 240 Intake: Oral 690 540 240 Hemodialysis 300 Output: Urine 100 30 Hemodialysis 2300 Other: Voiding Method Indwelling Catheter Indwelling Catheter Indwelling Catheter # Bowel Movements 1 - Labs CBC & Chem 7: 06/18/23 09:33 06/16/23 08:55 Labs: Abnormal Lab Results - Last 24 Hours (Table) 06/18/23 Range/Units 09:33 WBC 20.5 H (3.8-10.6) k/uL RBC 2.44 L (3.80-5.40) m/uL Hgb 7.7 L (11.4-16.0) gm/dL Hct 24.8 L (34.0-46.0) % MCV 101.7 H (80.0-100.0) fL Assessment and Plan Plan: Assessment: 1. Acute kidney injury secondary to ATN secondary to rhabdomyolysis and severe sepsis. Oliguric. No hydronephrosis noted on kidney ultrasound. Started on hemodialysis 06/14/2023. Creatinine 0.8 in March 2023. 2. Rhabdomyolysis secondary to fall. CK levels trending down. 3. Volume overload. 4. Severe sepsis secondary to E. coli UTI and bacteremia on antibiotics. 5. Hypocalcemia. Albumin 2.0. Corrected calcium normal. Vitamin D level 10.0. On Drisdol. 6. Hyperphosphatemia secondary to acute kidney injury maintained on PhosLo. 7. Anemia. Rule out iron deficiency. Plan: Hemodialysis today. Dialysis catheter to be exchanged today. Avoid nephrotoxins. Monitor for renal recovery. Check iron studies. Maintain IV Lasix.
[2023-06-18 11:50] LABS: ALT 77 U/L (4-34); AST 58 U/L (14-36); African American GFR (CKD) 8 (>60 ml/min/1.73 sqM); Albumin 2.2 g/dL (3.5-5.0); Alkaline Phosphatase 66 U/L (38-126); Anion Gap 7 mmol/L; Blood Urea Nitrogen 41 mg/dL (7-17); Calcium 8.9 mg/dL (8.4-10.2); Carbon Dioxide 27 mmol/L (22-30); Chloride 100 mmol/L (98-107); Glucose 150 mg/dL (74-99); Non-African American GFR(CKD) 7 (>60 ml/min/1.73 sqM); Potassium 3.5 mmol/L (3.5-5.1); Sodium 134 mmol/L (137-145); Total Bilirubin 0.4 mg/dL (0.2-1.3); Total Protein 4.7 g/dL (6.3-8.2)
[2023-06-18] MEDS ORDERED: LIDOCAINE 1% INJ 10MG/ML (20 ML MDV) SQ ONE ×2 (12:46→12:55)
[2023-06-18] MEDS ORDERED: IOPAMIDOL-370 100ML BTL INJ ONE (13:04)
--- NOTE | 2023-06-18 13:21 | P.PN ---
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 After that tunnel was created through the terminal be brought foot for CM permanent dialysis catheter dilator was advanced top the guidewire and sheath was placed in the top of the guidewire through the sheath we placed a dialysis catheter sheath was removed pressure held patient had a free flow flushed with heparin saline and Hep-Lock secured with 3-0 nylon and dressing applied patient for the procedure well and right groin catheter was removed pressure was held patient tolerated the procedure well and transferred to the room in safe condition thank you
--- NOTE | 2023-06-18 14:47 | P.PN ---
Subjective Progress Note Date: 06/18/23 Principal diagnosis: UTI and bacteremia patient is a 82-year-old female with a past medical history significant for hypertension hyperlipidemia history of right lower extremity venous stasis ulcer and cellulitis who was brought to the hospital yesterday afternoon after apparent the patient have a fall at home , Left knee x-ray did shows small joint effusion and small periprosthetic fracture along the medial aspect , patient also have a elevated white count and positive UA and blood cultures came back positive. Patient has been started on dialysis for worsening kidney function On today's evaluation that is 2022, the patient remains to be afebrile patient is breathing comfortably on 2 L nasal cannula oxygen but denies having any chest pain shortness of breath or cough no nausea vomiting no abdominal pain has been complaining of some diarrhea. Patient white count is up to 20,000, creatinine is 5.08, stool for C. difficile is negative Objective - Vital Signs Vital signs: Vital Signs Temp 97.9 F 06/17/23 20:00 Pulse 90 06/18/23 04:00 Resp 16 06/18/23 04:00 BP 94/54 06/18/23 04:00 Pulse Ox 90 L 06/18/23 04:00 FiO2 Intake & Output 06/17/23 06/18/23 06/18/23 18:59 06:59 18:59 Intake Total 990 540 240 Output Total 2400 30 Balance -1410 510 240 Intake: Oral 690 540 240 Hemodialysis 300 Output: Urine 100 30 Hemodialysis 2300 Other: Voiding Method Indwelling Catheter Indwelling Catheter # Bowel Movements 1 - Exam GENERAL DESCRIPTION: An elderly female lying in bed in no distress RESPIRATORY SYSTEM: Unlabored breathing , decreased breath sounds at bases HEART: S1 S2 regular rate and rhythm , ABDOMEN: Soft , no tenderness EXTREMITIES: Right lower segment is currently wrapped no drainage on the dressing - Labs CBC & Chem 7: 06/18/23 09:33 06/18/23 09:33 Assessment and Plan (1) Sepsis Current Visit: Yes Status: Acute Code(s): A41.9 - SEPSIS, UNSPECIFIED ORGANISM SNOMED Code(s): 47520704 (2) Gram-negative bacteremia Current Visit: Yes Status: Acute Code(s): R78.81 - BACTEREMIA SNOMED Code(s): 317296440054 (3) Urinary tract infection Current Visit: Yes Status: Acute Code(s): N39.0 - URINARY TRACT INFECTION, SITE NOT SPECIFIED SNOMED Code(s): 55030768 Plan: 1right lower extremity venous stasis ulcer and no cellulitis continue Local wound care to continue with Aquacel silver dressing followed by compression dressing will be changed to weekly 2patient did have E. coli bacteremia likely secondary urinary source, ultrasound of the kidney and bladder area with no evidence of any obstructive uropathy, Repeat blood cultures has been negative so far 3-patient did clear her bacteremia however the patient white count is elevated up to 20,000 today the slightly concerning patient did have diarrhea but stool for C. difficile was negative we will add Flagyl empirically to the Rocephin recheck her CBC and inflammatory markers with a.m. lab and monitor clinical course closely Dictation was produced using [employer] dictation software. please excuse any grammatical, word or spelling errors. Time with Patient: Greater than 30
[2023-06-18 15:35] LABS: Band Neutrophils % 4 %; Eosinophils # (M) 0.62 k/uL (0-0.7); Lymphocytes # (M) 1.85 k/uL (1.0-4.8); Metamyelocytes # (M) 0.62 k/uL (0); Metamyelocytes % 3 %; Monocytes # (M) 0.82 k/uL (0-1.0); Myelocytes # (M) 0.82 k/uL (0); Myelocytes % 4 %; Neutrophils % (M) 75 %; Nucleated Red Blood Cells 0 /100 WBC (0-0); Total Cells Counted 200
[2023-06-18 15:36] LABS: Poikilocytosis (M) Present; Polychromasia Present
[2023-06-18] MEDS: CHOLESTYRAMINE (WITH SUGAR) 4 GM PACKET PO SCH (17:32)
[2023-06-18] MEDS: metroNIDAZOLE 500 MG TAB PO SCH ×2 (17:32→20:30)
[2023-06-18 23:55] LABS: % Iron Saturation 14.35 (12.00-45.00)
[2023-06-19] MEDS: MORPHINE SULFATE 4 MG/ML SYRINGE IV PRN ×2 (04:27→10:37)
[2023-06-19] MEDS: CALCIUM ACETATE 667 MG TAB PO SCH ×3 (06:26→17:51)
--- NOTE | 2023-06-19 09:36 | P.PN ---
Subjective Progress Note Date: 06/19/23 This is an 82-year-old female patient who originally presented to the hospital after she sustained a fall and was on the ground for quite some time before patient was able to get help. Patient apparently had diarrhea prior to fall and was not eating or drinking much. Patient has a past medical history of hypertension hyperlipidemia. Upon arrival patient was found to have a creatinine kinase level of 40,048 white blood cell 31.2 creatinine 2.66 bun 33 AST 694 and ALT 114. Patient was also positive for UTI which was followed by positive blood culture was also found to have a left para-prosthetic lateral condyle fracture of the distal femur. Orthopedic services, nephrology and infectious disease is following. I am resuming care of patient on 06/13/2023 Dr. Gee previously covering On 06/13/2023 patient alert and oriented 3 currently sitting up in bed. Per orthopedic services continue with conservative management. Awaiting lab work but creatinine significantly increased yesterday to 4.24 and 149. Nephrology services are following. Patient remains on IV antibiotics infectious disease services are following. Current vital signs temp 98.0, heart rate 73, respiratory rate 20, blood pressure 124/65 and pulse ox 95% on 2 L On 06/14/2023 patient was seen and examined on the telemetry floor she is alert and oriented 3 in no apparent distress, she is resting in bed, she is compl aining of lower extremity pain, otherwise she denies any complaints at this time, she underwent her first session of hemodialysis today, there is no fever or chills no headache or dizziness no chest pain no shortness of breath no cough no nausea or vomiting no abdominal pain no diarrhea and no urinary symptoms. On 06/15/2023 patient alert and oriented 3 currently resting comfortably in bed. Patient was started on hemodialysis plans for additional hemodialysis today per nephrology services. Current vital signs temp 98.1, heart rate 73, respiratory 16, blood pressure 11/23/1973 with pulse ox 98% on 2 L. labwork currently pending. On 06/16/2023 patient was seen and examined on the medical floor she is alert and oriented 3 in no apparent distress there is no fever or chills no headache or dizziness no chest pain no shortness of breath no cough no nausea or vomiting no abdominal pain no diarrhea and no urinary symptoms. She underwent hemodialysis again today, will continue to follow closely, PT and OT consult. On 06/17/2023 patient is alert and oriented 3. Patient remains on IV Lasix. Left upper extremity having increased edema will order venous Doppler to rule out DVT. Creatinine improving to 3.93 bun 41. Current vital signs temp 98.7, heart rate 79, respiratory rate 15, blood pressure 140/70 with a pulse ox of 98% on 2 L On 06/18/2023 patient was seen and examined on the medical floor, she is alert and oriented 3 in no apparent distress, she is complaining of diarrhea, and complaining of generalized pain, otherwise she denies any complaints, there is no fever or chills no headache or dizziness no chest pain no shortness of breath no cough no nausea or vomiting no abdominal pain no blood in the stools no burning with urination no frequency or urgency and no hematuria. Patient has generalized weakness. Temperature today is 98.4 pulse 84 respiration 18 blood pressure 123/56 pulse ox is 92% on 2 L nasal cannula, labs from today are still pending. C. diff EIA yesterday was negative. On 06/19/2023 patient is alert and oriented 3 patient continued to have loose stools at this time will order C. diff PCR for more accurate testing. Patient underwent hemodialysis access placement yesterday. Patient denies chest pain or shortness breath. Patient denies nausea vomiting or diarrhea. Patient denies any urinary burning or frequency Objective - Vital Signs Vital signs: Vital Signs Temp 97.9 F 06/18/23 20:00 Pulse 75 06/19/23 04:00 Resp 16 06/19/23 04:00 BP 115/63 06/19/23 04:00 Pulse Ox 94 L 06/19/23 04:00 FiO2 Intake & Output 06/18/23 06/19/23 06/19/23 18:59 06:59 18:59 Intake Total 480 640 240 Output Total 2900 Balance 480 -2260 240 Weight 87 kg Intake: Oral 480 240 240 Hemodialysis 400 Output: Hemodialysis 2900 Other: Voiding Method Indwelling Catheter Indwelling Catheter # Bowel Movements 1 - Exam In general patient is alert and oriented x 3 in no distress HEENT head normocephalic and atraumatic Neck is supple no JVD no goiter no lymphadenopathy no carotid bruit Chest examination is clear to auscultation no crackles no wheezing Cardiac exam reveals regular heart sounds S1 and S2 no gallops no murmurs Abdomen is soft nontender no organomegaly with normal bowel sounds Extremity exam reveals no edema no cyanosis or clubbing Neurological examination reveals no gross focal deficits - Labs CBC & Chem 7: 06/18/23 09:33 06/18/23 09:33 Labs: Abnormal Lab Results - Last 24 Hours (Table) 06/18/23 06/18/23 06/18/23 Range/Units 09:33 09:33 13:51 WBC 20.5 H (3.8-10.6) k/uL RBC 2.44 L (3.80-5.40) m/uL Hgb 7.7 L (11.4-16.0) gm/dL Hct 24.8 L (34.0-46.0) % MCV 101.7 H (80.0-100.0) fL Neutrophils # (Manual) 16.10 H (1.3-7.7) k/uL Metamyelocytes # (Man) 0.62 H (0) k/uL Myelocytes # (Manual) 0.82 H (0) k/uL Sodium 134 L (137-145) mmol/L BUN 41 H (7-17) mg/dL Creatinine 5.08 H (0.52-1.04) mg/dL Glucose 150 H (74-99) mg/dL Iron 32 L (50-170) UG/DL TIBC 223 L (228-460) UG/DL Transferrin 159.0 L (204.0-354.0) mg/dL Ferritin 625.0 H (10.0-291.0) ng/mL AST 58 H (14-36) U/L ALT 77 H (4-34) U/L Total Protein 4.7 L (6.3-8.2) g/dL Albumin 2.2 L (3.5-5.0) g/dL 06/18/23 Range/Units 13:51 WBC (3.8-10.6) k/uL RBC (3.80-5.40) m/uL Hgb (11.4-16.0) gm/dL Hct (34.0-46.0) % MCV (80.0-100.0) fL Neutrophils # (Manual) (1.3-7.7) k/uL Metamyelocytes # (Man) (0) k/uL Myelocytes # (Manual) (0) k/uL Sodium (137-145) mmol/L BUN (7-17) mg/dL Creatinine (0.52-1.04) mg/dL Glucose (74-99) mg/dL Iron 33 L (50-170) UG/DL TIBC (228-460) UG/DL Transferrin (204.0-354.0) mg/dL Ferritin (10.0-291.0) ng/mL AST (14-36) U/L ALT (4-34) U/L Total Protein (6.3-8.2) g/dL Albumin (3.5-5.0) g/dL Microbiology - Last 24 Hours (Table) 06/13/23 19:00 Blood Culture - Final Blood Assessment and Plan Assessment: 1. Fall with rhabdomyolysis 2. Urinary tract infection 3. E. coli bacteremia 4. Acute kidney injury secondary to ATN, started on hemodialysis today 5. Elevated liver liver enzymes 6. Left periprosthetic lateral condyle fracture of the distal femur. Orthopedic services are following conservative management at this time 7. Right lower extremity cellulitis 8. Elevated troponins per cardiology likely secondary to elevated CPK 9. Diarrhea. Patient was negative for C. diff was given Lomotil 10. Increased swelling to left upper extremity well ordered venous Doppler to rule out DVT. Patient maintained on IV Lasix Infectious disease, cardiology, nephrology and orthopedic services are following Patient started on hemodialysis on 06/13/2023 Patient remains on IV antibiotics Repeat labs ordered
[2023-06-19] MEDS: metroNIDAZOLE 500 MG TAB PO SCH ×3 (10:23→20:47)
[2023-06-19] MEDS: FUROSEMIDE 10 MG/ML 10 ML VIAL IV SCH ×2 (10:24→20:47)
[2023-06-19] MEDS: MONTELUKAST 10 MG TAB PO SCH (10:24)
[2023-06-19] MEDS: CALCIUM CARBONATE 500 MG CHEWABLE PO SCH (10:24)
[2023-06-19] MEDS: CHOLESTYRAMINE (WITH SUGAR) 4 GM PACKET PO SCH ×2 (10:24→17:52)
--- NOTE | 2023-06-19 10:55 | P.PN ---
Subjective Patient is seen in follow-up for acute kidney injury, hemodialysis dependent. Dialysis access changed 06/18/2023. Currently resting in bed. On nasal cannula. Denies chest pain or shortness of breath. Urine output remains low. Vital signs are stable. General: No acute distress. HEENT: Head exam is unremarkable. LUNGS: No audible rhonchi or wheezes. HEART: Rate and Rhythm are regular. ABDOMEN: Nontender. EXTREMITITES: 2+ edema. Objective - Vital Signs Vital signs: Vital Signs Temp 97.9 F 06/18/23 20:00 Pulse 75 06/19/23 04:00 Resp 16 06/19/23 04:00 BP 115/63 06/19/23 04:00 Pulse Ox 94 L 06/19/23 04:00 FiO2 Intake & Output 06/18/23 06/19/23 06/19/23 18:59 06:59 18:59 Intake Total 480 640 240 Output Total 2900 Balance 480 -2260 240 Weight 87 kg Intake: Oral 480 240 240 Hemodialysis 400 Output: Hemodialysis 2900 Other: Voiding Method Indwelling Catheter Indwelling Catheter # Bowel Movements 1 - Labs CBC & Chem 7: 06/18/23 09:33 06/18/23 09:33 Labs: Abnormal Lab Results - Last 24 Hours (Table) 06/18/23 06/18/23 06/18/23 Range/Units 09:33 09:33 13:51 WBC 20.5 H (3.8-10.6) k/uL RBC 2.44 L (3.80-5.40) m/uL Hgb 7.7 L (11.4-16.0) gm/dL Hct 24.8 L (34.0-46.0) % MCV 101.7 H (80.0-100.0) fL Neutrophils # (Manual) 16.10 H (1.3-7.7) k/uL Metamyelocytes # (Man) 0.62 H (0) k/uL Myelocytes # (Manual) 0.82 H (0) k/uL Sodium 134 L (137-145) mmol/L BUN 41 H (7-17) mg/dL Creatinine 5.08 H (0.52-1.04) mg/dL Glucose 150 H (74-99) mg/dL Iron 32 L (50-170) UG/DL TIBC 223 L (228-460) UG/DL Transferrin 159.0 L (204.0-354.0) mg/dL Ferritin 625.0 H (10.0-291.0) ng/mL AST 58 H (14-36) U/L ALT 77 H (4-34) U/L Total Protein 4.7 L (6.3-8.2) g/dL Albumin 2.2 L (3.5-5.0) g/dL 06/18/23 Range/Units 13:51 WBC (3.8-10.6) k/uL RBC (3.80-5.40) m/uL Hgb (11.4-16.0) gm/dL Hct (34.0-46.0) % MCV (80.0-100.0) fL Neutrophils # (Manual) (1.3-7.7) k/uL Metamyelocytes # (Man) (0) k/uL Myelocytes # (Manual) (0) k/uL Sodium (137-145) mmol/L BUN (7-17) mg/dL Creatinine (0.52-1.04) mg/dL Glucose (74-99) mg/dL Iron 33 L (50-170) UG/DL TIBC (228-460) UG/DL Transferrin (204.0-354.0) mg/dL Ferritin (10.0-291.0) ng/mL AST (14-36) U/L ALT (4-34) U/L Total Protein (6.3-8.2) g/dL Albumin (3.5-5.0) g/dL Microbiology - Last 24 Hours (Table) 06/13/23 19:00 Blood Culture - Final Blood Assessment and Plan Plan: Assessment: 1. Acute kidney injury secondary to ATN secondary to rhabdomyolysis and severe sepsis. Urine output low. No hydronephrosis noted on kidney ultrasound. Started on hemodialysis 06/14/2023. Has a tunneled left femoral catheter. Creatinine 0.8 in March 2023. 2. Rhabdomyolysis secondary to fall. CK levels trending down. 3. Volume overload. 4. Severe sepsis secondary to E. coli UTI and bacteremia on antibiotics. 5. Hypocalcemia. Corrected calcium now slightly on the higher side. Vitamin D level 10.0. On Drisdol. Also on Tums and PhosLo. 6. Hyperphosphatemia secondary to acute kidney injury maintained on PhosLo. 7. Anemia. Iron deficiency noted. Plan: Hemodialysis tomorrow. Avoid nephrotoxins. Monitor for renal recovery. Add IV iron. Maintain IV Lasix. Stop Tums.
[2023-06-19] MEDS: NYSTATIN 100,000 UNIT/GM POWD 15 GM TOPICAL SCH ×2 (12:39→20:51)
[2023-06-19] MEDS: SODIUM FERRIC GLUCONAT-SUCROSE 125 MG in SODIUM CHLORIDE 0.9% 100 ML IVPB SCH (13:06)
[2023-06-19] MEDS: ERGOCALCIFEROL 1,250 MCG (50,000 IU) CAPSULE PO SCH (13:06)
[2023-06-19 15:25] LABS: HCT 24.4 % (34.0-46.0); Hypochromasia Slight; MCH 32.6 pg (25.0-35.0); MCV 98.9 fL (80.0-100.0); Macrocytosis Slight; Mean Platelet Volume 10.3; Platelet Count 254 k/uL (150-450); RBC 2.47 m/uL (3.80-5.40); RDW 15.3 % (11.5-15.5); WBC 18.7 k/uL (3.8-10.6)
[2023-06-19 15:35] LABS: ALT 72 U/L (4-34); AST 60 U/L (14-36); African American GFR (CKD) 13 (>60 ml/min/1.73 sqM); Albumin 2.4 g/dL (3.5-5.0); Alkaline Phosphatase 76 U/L (38-126); Anion Gap 8 mmol/L; Blood Urea Nitrogen 32 mg/dL (7-17); C Reactive Protein 8.5 mg/dL (<1.0); Calcium 9.3 mg/dL (8.4-10.2); Carbon Dioxide 25 mmol/L (22-30); Chloride 104 mmol/L (98-107); Glucose 120 mg/dL (74-99); Non-African American GFR(CKD) 12 (>60 ml/min/1.73 sqM); Potassium 3.8 mmol/L (3.5-5.1); Sodium 137 mmol/L (137-145); Total Bilirubin 0.4 mg/dL (0.2-1.3); Total Protein 5.2 g/dL (6.3-8.2)
[2023-06-19 15:40] LABS: Band Neutrophils % 2 %; Basophils # (M) 0.19 k/uL (0-0.2); Eosinophils # (M) 0.19 k/uL (0-0.7); Lymphocytes # (M) 0.94 k/uL (1.0-4.8); Metamyelocytes # (M) 0.37 k/uL (0); Metamyelocytes % 2 %; Monocytes # (M) 1.12 k/uL (0-1.0); Neutrophils % (M) 85 %; Nucleated Red Blood Cells 0 /100 WBC (0-0); Total Cells Counted 200
[2023-06-19 15:42] LABS: Polychromasia Present
[2023-06-20] MEDS: MORPHINE SULFATE 4 MG/ML SYRINGE IV PRN ×3 (06:01→17:49)
[2023-06-20] MEDS: CALCIUM ACETATE 667 MG TAB PO SCH ×3 (07:01→17:50)
--- NOTE | 2023-06-20 07:51 | P.PN ---
Subjective Progress Note Date: 06/19/23 Principal diagnosis: UTI and bacteremia patient is a 82-year-old female with a past medical history significant for hypertension hyperlipidemia history of right lower extremity venous stasis ulcer and cellulitis who was brought to the hospital yesterday afternoon after apparent the patient have a fall at home , Left knee x-ray did shows small joint effusion and small periprosthetic fracture along the medial aspect , patient also have a elevated white count and positive UA and blood cultures came back positive. Patient has been started on dialysis for worsening kidney function On today's evaluation that is 06/19/2023 patient remains to be afebrile, the patient is breathing comfortably on 2 L nasal cannula oxygen, patient denies chest pain shortness of breath or cough no nausea no vomiting no abdominal pain still complaining of diarrhea however the nursing staff mention no bowel movement since 4 in the morning. Patient white count is slightly down to 18.7 today creatinine is 3.48 Objective - Vital Signs Vital signs: Vital Signs Temp 99.2 F 06/19/23 20:00 Pulse 80 06/19/23 20:00 Resp 16 06/19/23 20:00 BP 104/64 06/19/23 20:00 Pulse Ox 94 L 06/19/23 20:00 FiO2 Intake & Output 06/19/23 06/19/23 06/20/23 06:59 18:59 06:59 Intake Total 640 420 Output Total 2900 200 Balance -2260 220 Weight 87 kg Intake: Oral 240 420 Hemodialysis 400 Output: Urine 200 Hemodialysis 2900 Other: Voiding Method Indwelling Catheter Indwelling Catheter # Bowel Movements 1 - Exam GENERAL DESCRIPTION: An elderly female lying in bed in no distress RESPIRATORY SYSTEM: Unlabored breathing , decreased breath sounds at bases HEART: S1 S2 regular rate and rhythm , ABDOMEN: Soft , no tenderness EXTREMITIES: Right lower segment is currently wrapped no drainage on the dressi ng - Labs CBC & Chem 7: 06/19/23 13:27 06/19/23 13:27 Labs: Abnormal Lab Results - Last 24 Hours (Table) 06/18/23 06/18/23 06/19/23 Range/Units 13:51 13:51 13:27 WBC (3.8-10.6) k/uL RBC (3.80-5.40) m/uL Hgb (11.4-16.0) gm/dL Hct (34.0-46.0) % Neutrophils # (Manual) (1.3-7.7) k/uL Lymphocytes # (Manual) (1.0-4.8) k/uL Monocytes # (Manual) (0-1.0) k/uL Metamyelocytes # (Man) (0) k/uL BUN 32 H (7-17) mg/dL Creatinine 3.48 H (0.52-1.04) mg/dL Glucose 120 H (74-99) mg/dL Iron 32 L 33 L (50-170) UG/DL TIBC 223 L (228-460) UG/DL Transferrin 159.0 L (204.0-354.0) mg/dL Ferritin 625.0 H (10.0-291.0) ng/mL AST 60 H (14-36) U/L ALT 72 H (4-34) U/L C-Reactive Protein 8.5 H (<1.0) mg/dL Total Protein 5.2 L (6.3-8.2) g/dL Albumin 2.4 L (3.5-5.0) g/dL 06/19/23 Range/Units 13:27 WBC 18.7 H (3.8-10.6) k/uL RBC 2.47 L (3.80-5.40) m/uL Hgb 8.0 L (11.4-16.0) gm/dL Hct 24.4 L (34.0-46.0) % Neutrophils # (Manual) 16.20 H (1.3-7.7) k/uL Lymphocytes # (Manual) 0.94 L (1.0-4.8) k/uL Monocytes # (Manual) 1.12 H (0-1.0) k/uL Metamyelocytes # (Man) 0.37 H (0) k/uL BUN (7-17) mg/dL Creatinine (0.52-1.04) mg/dL Glucose (74-99) mg/dL Iron (50-170) UG/DL TIBC (228-460) UG/DL Transferrin (204.0-354.0) mg/dL Ferritin (10.0-291.0) ng/mL AST (14-36) U/L ALT (4-34) U/L C-Reactive Protein (<1.0) mg/dL Total Protein (6.3-8.2) g/dL Albumin (3.5-5.0) g/dL Microbiology - Last 24 Hours (Table) 06/13/23 19:00 Blood Culture - Final Blood Assessment and Plan (1) Sepsis Current Visit: Yes Status: Acute Code(s): A41.9 - SEPSIS, UNSPECIFIED ORGANISM SNOMED Code(s): 35879860 (2) Gram-negative bacteremia Current Visit: Yes Status: Acute Code(s): R78.81 - BACTEREMIA SNOMED Code(s): 553049153646 (3) Urinary tract infection Current Visit: Yes Status: Acute Code(s): N39.0 - URINARY TRACT INFECTION, SITE NOT SPECIFIED SNOMED Code(s): 97231619 Plan: 1right lower extremity venous stasis ulcer and no cellulitis continue Local wound care to continue with Aquacel silver dressing followed by compression dressing will be changed to weekly 2patient did have E. coli bacteremia likely secondary urinary source, ultrasound of the kidney and bladder area with no evidence of any obstructive uropathy, Repeat blood cultures has been negative so far 3patient white count is trending down with addition of Flagyl to continue along with Rocephin and monitor clinical course closely Questions concerns were answered Dictation was produced using [employer] dictation software. please excuse any grammatical, word or spelling errors.
[2023-06-20] MEDS: SODIUM FERRIC GLUCONAT-SUCROSE 125 MG in SODIUM CHLORIDE 0.9% 100 ML IVPB SCH (08:14)
[2023-06-20] MEDS: NYSTATIN 100,000 UNIT/GM POWD 15 GM TOPICAL SCH ×2 (08:15→20:40)
[2023-06-20] MEDS: metroNIDAZOLE 500 MG TAB PO SCH (08:15)
[2023-06-20] MEDS: MONTELUKAST 10 MG TAB PO SCH (08:15)
[2023-06-20] MEDS: CHOLESTYRAMINE (WITH SUGAR) 4 GM PACKET PO SCH ×2 (08:15→17:46)
[2023-06-20] MEDS: FUROSEMIDE 10 MG/ML 10 ML VIAL IV SCH (08:15)
[2023-06-20] MEDS ORDERED: MIDODRINE 5 MG TAB PO PRN (10:18)
[2023-06-20 10:52] LABS: ALT 58 U/L (4-34); AST 43 U/L (14-36); African American GFR (CKD) 10 (>60 ml/min/1.73 sqM); Albumin 2.2 g/dL (3.5-5.0); Alkaline Phosphatase 58 U/L (38-126); Blood Urea Nitrogen 35 mg/dL (7-17); Calcium 8.5 mg/dL (8.4-10.2); Carbon Dioxide 26 mmol/L (22-30); Glucose 136 mg/dL (74-99); Non-African American GFR(CKD) 9 (>60 ml/min/1.73 sqM); Total Bilirubin 0.4 mg/dL (0.2-1.3); Total Protein 4.7 g/dL (6.3-8.2)
[2023-06-20 11:01] LABS: Anion Gap 7 mmol/L; Chloride 103 mmol/L (98-107); Potassium 2.9 mmol/L (3.5-5.1); Sodium 136 mmol/L (137-145)
[2023-06-20 11:40] LABS: HCT 26.2 % (34.0-46.0); Hypochromasia Moderate; MCH 31.2 pg (25.0-35.0); MCHC 30.6 g/dL (31.0-37.0); Macrocytosis Slight; Mean Platelet Volume 8.3; Platelet Count 351 k/uL (150-450); RBC 2.57 m/uL (3.80-5.40); RDW 15.7 % (11.5-15.5); WBC 18.1 k/uL (3.8-10.6)
--- NOTE | 2023-06-20 12:00 | P.PN ---
Subjective Patient is seen in follow-up for acute kidney injury, hemodialysis dependent. Dialysis access changed 06/18/2023. Currently resting in bed. On nasal cannula. Denies chest pain or shortness of breath. Urine output remains low. Vital signs are stable. General: No acute distress. HEENT: Head exam is unremarkable. LUNGS: No audible rhonchi or wheezes. HEART: Rate and Rhythm are regular. ABDOMEN: Nontender. EXTREMITITES: 2+ edema. Objective - Vital Signs Vital signs: Vital Signs Temp 98.4 F 06/20/23 08:00 Pulse 74 06/20/23 08:00 Resp 18 06/20/23 08:24 BP 91/49 06/20/23 08:00 Pulse Ox 96 06/20/23 09:57 FiO2 Intake & Output 06/19/23 06/20/23 06/20/23 18:59 06:59 18:59 Intake Total 420 180 Output Total 200 200 400 Balance 220 -200 -220 Weight 94 kg Intake: Oral 420 180 Output: Urine 200 200 400 Other: Voiding Method Indwelling Catheter Indwelling Catheter # Bowel Movements 0 - Labs CBC & Chem 7: 06/20/23 10:53 06/20/23 10:15 Labs: Abnormal Lab Results - Last 24 Hours (Table) 06/19/23 06/19/23 06/20/23 Range/Units 13:27 13:27 10:15 WBC 18.7 H (3.8-10.6) k/uL RBC 2.47 L (3.80-5.40) m/uL Hgb 8.0 L (11.4-16.0) gm/dL Hct 24.4 L (34.0-46.0) % MCV (80.0-100.0) fL MCHC (31.0-37.0) g/dL RDW (11.5-15.5) % Neutrophils # (Manual) 16.20 H (1.3-7.7) k/uL Lymphocytes # (Manual) 0.94 L (1.0-4.8) k/uL Monocytes # (Manual) 1.12 H (0-1.0) k/uL Metamyelocytes # (Man) 0.37 H (0) k/uL Sodium 136 L (137-145) mmol/L Potassium 2.9 L (3.5-5.1) mmol/L BUN 32 H 35 H (7-17) mg/dL Creatinine 3.48 H 4.33 H (0.52-1.04) mg/dL Glucose 120 H 136 H (74-99) mg/dL AST 60 H 43 H (14-36) U/L ALT 72 H 58 H (4-34) U/L C-Reactive Protein 8.5 H (<1.0) mg/dL Total Protein 5.2 L 4.7 L (6.3-8.2) g/dL Albumin 2.4 L 2.2 L (3.5-5.0) g/dL 06/20/23 Range/Units 10:53 WBC 18.1 H (3.8-10.6) k/uL RBC 2.57 L (3.80-5.40) m/uL Hgb 8.0 L (11.4-16.0) gm/dL Hct 26.2 L (34.0-46.0) % MCV 102.0 H (80.0-100.0) fL MCHC 30.6 L (31.0-37.0) g/dL RDW 15.7 H (11.5-15.5) % Neutrophils # (Manual) (1.3-7.7) k/uL Lymphocytes # (Manual) (1.0-4.8) k/uL Monocytes # (Manual) (0-1.0) k/uL Metamyelocytes # (Man) (0) k/uL Sodium (137-145) mmol/L Potassium (3.5-5.1) mmol/L BUN (7-17) mg/dL Creatinine (0.52-1.04) mg/dL Glucose (74-99) mg/dL AST (14-36) U/L ALT (4-34) U/L C-Reactive Protein (<1.0) mg/dL Total Protein (6.3-8.2) g/dL Albumin (3.5-5.0) g/dL Assessment and Plan Plan: Assessment: 1. Acute kidney injury secondary to ATN secondary to rhabdomyolysis and severe sepsis. Urine output remains low. No hydronephrosis noted on kidney ult rasound. Started on hemodialysis 06/14/2023. Has a tunneled left femoral catheter. Creatinine 0.8 in March 2023. 2. Rhabdomyolysis secondary to fall. CK levels trending down. 3. Volume overload. Improving with ultrafiltration. 4. Severe sepsis secondary to E. coli UTI and bacteremia on antibiotics. 5. Hypocalcemia. Corrected calcium now slightly on the higher side. Vitamin D level 10.0. On Drisdol. Also on Tums and PhosLo. 6. Hyperphosphatemia secondary to acute kidney injury maintained on PhosLo. 7. Anemia. Iron deficiency noted. Plan: Currently seen while undergoing hemodialysis. Change to 4K bath. Repeat potassium level 2 hours after dialysis. Avoid nephrotoxins. Monitor for renal recovery. Maintain IV iron. Stop IV Lasix. Add torsemide 40 mg once daily. Tums discontinued 06/19/2023. Check phosphorus level.
--- NOTE | 2023-06-20 12:46 | P.PN ---
Subjective Progress Note Date: 06/20/23 Principal diagnosis: UTI and bacteremia patient is a 82-year-old female with a past medical history significant for hypertension hyperlipidemia history of right lower extremity venous stasis ulcer and cellulitis who was brought to the hospital yesterday afternoon after apparent the patient have a fall at home , Left knee x-ray did shows small joint effusion and small periprosthetic fracture along the medial aspect , patient also have a elevated white count and positive UA and blood cultures came back positive. Patient has been started on dialysis for worsening kidney function On today's evaluation that is 06/20/2023 patient continues to be afebrile, the patient is breathing comfortably on 2 L nasal cannula oxygen, patient denies chest pain shortness of breath or cough, the patient denies nausea no vomiting no abdominal pain still complaining of diarrhea , did have 1 loose stool or on 5 this morning and none since then Patient white count is slightly down to 18.1 today , stool for C. diff PCR has been ordered and is currently pending Objective - Vital Signs Vital signs: Vital Signs Temp 98.4 F 06/20/23 08:00 Pulse 74 06/20/23 08:00 Resp 18 06/20/23 08:24 BP 91/49 06/20/23 08:00 Pulse Ox 96 06/20/23 09:57 FiO2 Intake & Output 06/19/23 06/20/23 06/20/23 18:59 06:59 18:59 Intake Total 420 180 Output Total 200 200 Balance 220 -200 180 Weight 94 kg Intake: Oral 420 180 Output: Urine 200 200 Other: Voiding Method Indwelling Catheter Indwelling Catheter # Bowel Movements 0 - Exam GENERAL DESCRIPTION: An elderly female lying in bed in no distress RESPIRATORY SYSTEM: Unlabored breathing , decreased breath sounds at bases HEART: S1 S2 regular rate and rhythm , ABDOMEN: Soft , no tenderness EXTREMITIES: Right lower segment is currently wrapped no drainage on the dressing - Labs CBC & Chem 7: 06/20/23 10:53 06/20/23 10:15 Labs: Abnormal Lab Results - Last 24 Hours (Table) 06/19/23 06/19/23 06/20/23 Range/Units 13:27 13:27 10:15 WBC 18.7 H (3.8-10.6) k/uL RBC 2.47 L (3.80-5.40) m/uL Hgb 8.0 L (11.4-16.0) gm/dL Hct 24.4 L (34.0-46.0) % Neutrophils # (Manual) 16.20 H (1.3-7.7) k/uL Lymphocytes # (Manual) 0.94 L (1.0-4.8) k/uL Monocytes # (Manual) 1.12 H (0-1.0) k/uL Metamyelocytes # (Man) 0.37 H (0) k/uL BUN 32 H 35 H (7-17) mg/dL Creatinine 3.48 H 4.33 H (0.52-1.04) mg/dL Glucose 120 H 136 H (74-99) mg/dL AST 60 H 43 H (14-36) U/L ALT 72 H 58 H (4-34) U/L C-Reactive Protein 8.5 H (<1.0) mg/dL Total Protein 5.2 L 4.7 L (6.3-8.2) g/dL Albumin 2.4 L 2.2 L (3.5-5.0) g/dL Assessment and Plan (1) Sepsis Current Visit: Yes Status: Acute Code(s): A41.9 - SEPSIS, UNSPECIFIED ORGANISM SNOMED Code(s): 69169416 (2) Gram-negative bacteremia Current Visit: Yes Status: Acute Code(s): R78.81 - BACTEREMIA SNOMED Code( s): 400154802355 (3) Urinary tract infection Current Visit: Yes Status: Acute Code(s): N39.0 - URINARY TRACT INFECTION, SITE NOT SPECIFIED SNOMED Code(s): 70802779 Plan: 1right lower extremity venous stasis ulcer and no cellulitis continue Local wound care to continue with Aquacel silver dressing followed by compression dressing will be changed to weekly 2patient did have E. coli bacteremia likely secondary urinary source, ultra sound of the kidney and bladder area with no evidence of any obstructive uropathy, Repeat blood cultures has been negative so far ,continue with Rocephin for her bacteremia 3patient white count is still elevated and her clinical suspicious for possible C. difficile. Would discontinue Flagyl start the patient on oral vancomycin, Dictation was produced using [employer] software. please excuse any grammatical, word or spelling errors. Time with Patient: Less than 30
[2023-06-20] MEDS: VANCOMYCIN 125 MG CAPSULE PO SCH ×3 (13:07→22:23)
[2023-06-20 13:11] LABS: Band Neutrophils % 4 %; Eosinophils # (M) 0.36 k/uL (0-0.7); Lymphocytes # (M) 0.72 k/uL (1.0-4.8); Metamyelocytes # (M) 0.36 k/uL (0); Metamyelocytes % 2 %; Monocytes # (M) 1.09 k/uL (0-1.0); Myelocytes # (M) 0.54 k/uL (0); Myelocytes % 3 %; Neutrophils % (M) 80 %; Nucleated Red Blood Cells 0 /100 WBC (0-0); Total Cells Counted 200
--- NOTE | 2023-06-20 16:50 | P.PN ---
Subjective Progress Note Date: 06/20/23 This is an 82-year-old female patient who originally presented to the hospital after she sustained a fall and was on the ground for quite some time before patient was able to get help. Patient apparently had diarrhea prior to fall and was not eating or drinking much. Patient has a past medical history of hypertension hyperlipidemia. Upon arrival patient was found to have a creatinine kinase level of 40,048 white blood cell 31.2 creatinine 2.66 bun 33 AST 694 and ALT 114. Patient was also positive for UTI which was followed by positive blood culture was also found to have a left para-prosthetic lateral condyle fracture of the distal femur. Orthopedic services, nephrology and infectious disease is following. I am resuming care of patient on 06/13/2023 Dr. Gee previously covering On 06/13/2023 patient alert and oriented 3 currently sitting up in bed. Per orthopedic services continue with conservative management. Awaiting lab work but creatinine significantly increased yesterday to 4.24 and 149. Nephrology services are following. Patient remains on IV antibiotics infectious disease services are following. Current vital signs temp 98.0, heart rate 73, respiratory rate 20, blood pressure 124/65 and pulse ox 95% on 2 L On 06/14/2023 patient was seen and examined on the telemetry floor she is alert and oriented 3 in no apparent distress, she is resting in bed, she is compl aining of lower extremity pain, otherwise she denies any complaints at this time, she underwent her first session of hemodialysis today, there is no fever or chills no headache or dizziness no chest pain no shortness of breath no cough no nausea or vomiting no abdominal pain no diarrhea and no urinary symptoms. On 06/15/2023 patient alert and oriented 3 currently resting comfortably in bed. Patient was started on hemodialysis plans for additional hemodialysis today per nephrology services. Current vital signs temp 98.1, heart rate 73, respiratory 16, blood pressure 11/23/1973 with pulse ox 98% on 2 L. labwork currently pending. On 06/16/2023 patient was seen and examined on the medical floor she is alert and oriented 3 in no apparent distress there is no fever or chills no headache or dizziness no chest pain no shortness of breath no cough no nausea or vomiting no abdominal pain no diarrhea and no urinary symptoms. She underwent hemodialysis again today, will continue to follow closely, PT and OT consult. On 06/17/2023 patient is alert and oriented 3. Patient remains on IV Lasix. Left upper extremity having increased edema will order venous Doppler to rule out DVT. Creatinine improving to 3.93 bun 41. Current vital signs temp 98.7, heart rate 79, respiratory rate 15, blood pressure 140/70 with a pulse ox of 98% on 2 L On 06/18/2023 patient was seen and examined on the medical floor, she is alert and oriented 3 in no apparent distress, she is complaining of diarrhea, and complaining of generalized pain, otherwise she denies any complaints, there is no fever or chills no headache or dizziness no chest pain no shortness of breath no cough no nausea or vomiting no abdominal pain no blood in the stools no burning with urination no frequency or urgency and no hematuria. Patient has generalized weakness. Temperature today is 98.4 pulse 84 respiration 18 blood pressure 123/56 pulse ox is 92% on 2 L nasal cannula, labs from today are still pending. C. diff EIA yesterday was negative. On 06/19/2023 patient is alert and oriented 3 patient continued to have loose stools at this time will order C. diff PCR for more accurate testing. Patient underwent hemodialysis access placement yesterday. Patient denies chest pain or shortness breath. Patient denies nausea vomiting or diarrhea. Patient denies any urinary burning or frequency. On 06/20/2023 patient was seen and examined on the medical floor she is alert and oriented 3 in no apparent distress, she is still complaining of diarrhea, her white blood count remains elevated, she remains on hemodialysis, she is complaining of generalized weakness otherwise she denies any complaints at this time there is no fever or chills no headache or dizziness no chest pain no shortness of breath no cough no nausea or vomiting no abdominal pain and no urinary symptoms. Objective - Vital Signs Vital signs: Vital Signs Temp 98.2 F 06/20/23 15:57 Pulse 83 06/20/23 15:57 Resp 18 06/20/23 15:57 BP 115/63 06/20/23 15:57 Pulse Ox 92 L 06/20/23 15:57 FiO2 Intake & Output 06/19/23 06/20/23 06/20/23 18:59 06:59 18:59 Intake Total 420 180 Output Total 200 200 400 Balance 220 -200 -220 Weight 94 kg 94 kg Intake: Oral 420 180 Output: Urine 200 200 400 Other: Voiding Method Indwelling Catheter Indwelling Catheter Indwelling Catheter # Bowel Movements 0 - Exam In general patient is alert and oriented x 3 in no distress HEENT head normocephalic and atraumatic Neck is supple no JVD no goiter no lymphadenopathy no carotid bruit Chest examination is clear to auscultation no crackles no wheezing Cardiac exam reveals regular heart sounds S1 and S2 no gallops no murmurs Abdomen is soft nontender no organomegaly with normal bowel sounds Extremity exam reveals no edema no cyanosis or clubbing Neurological examination reveals no gross focal deficits - Labs CBC & Chem 7: 06/20/23 10:53 06/20/23 10:15 Labs: Abnormal Lab Results - Last 24 Hours (Table) 06/20/23 06/20/23 Range/Units 10:15 10:53 WBC 18.1 H (3.8-10.6) k/uL RBC 2.57 L (3.80-5.40) m/uL Hgb 8.0 L (11.4-16.0) gm/dL Hct 26.2 L (34.0-46.0) % MCV 102.0 H (80.0-100.0) fL MCHC 30.6 L (31.0-37.0) g/dL RDW 15.7 H (11.5-15.5) % Neutrophils # (Manual) 15.20 H (1.3-7.7) k/uL Lymphocytes # (Manual) 0.72 L (1.0-4.8) k/uL Monocytes # (Manual) 1.09 H (0-1.0) k/uL Metamyelocytes # (Man) 0.36 H (0) k/uL Myelocytes # (Manual) 0.54 H (0) k/uL Sodium 136 L (137-145) mmol/L Potassium 2.9 L (3.5-5.1) mmol/L BUN 35 H (7-17) mg/dL Creatinine 4.33 H (0.52-1.04) mg/dL Glucose 136 H (74-99) mg/dL AST 43 H (14-36) U/L ALT 58 H (4-34) U/L Total Protein 4.7 L (6.3-8.2) g/dL Albumin 2.2 L (3.5-5.0) g/dL Assessment and Plan Assessment: 1. Fall with rhabdomyolysis 2. Urinary tract infection 3. E. coli bacteremia 4. Acute kidney injury secondary to ATN, started on hemodialysis today 5. Elevated liver liver enzymes 6. Left periprosthetic lateral condyle fracture of the distal femur. Orthopedic services are following conservative management at this time 7. Right lower extremity cellulitis 8. Elevated troponins per cardiology likely secondary to elevated CPK 9. Diarrhea. Patient was negative for C. diff was given Lomotil 10. Increased swelling to left upper extremity well ordered venous Doppler to rule out DVT. Patient maintained on IV Lasix Infectious disease, cardiology, nephrology and orthopedic services are following Patient started on hemodialysis on 06/13/2023 Patient remains on IV antibiotics Repeat labs ordered
[2023-06-20] MEDS: POTASSIUM CHLORIDE ER 20 MEQ TAB.ER PO SCH ×3 (18:44→22:01)
[2023-06-21] MEDS: CALCIUM ACETATE 667 MG TAB PO SCH ×2 (06:32→11:02)
[2023-06-21] MEDS: MONTELUKAST 10 MG TAB PO SCH (08:22)
[2023-06-21] MEDS: TORSEMIDE 20 MG TAB PO SCH (08:22)
[2023-06-21] MEDS: VANCOMYCIN 125 MG CAPSULE PO SCH ×4 (08:22→20:34)
[2023-06-21] MEDS: NYSTATIN 100,000 UNIT/GM POWD 15 GM TOPICAL SCH ×2 (08:23→20:34)
--- NOTE | 2023-06-21 08:50 | IR ---
EXAMINATION TYPE: IR cvc insert central tunneled DATE OF EXAM: 06/18/2023 COMPARISON: NONE HISTORY: Fluoroscopy time. Fluoroscopy was provided to the referring clinician.
[2023-06-21 08:53] LABS: Anisocytosis Slight; HCT 23.2 % (34.0-46.0); HGB 7.3 gm/dL (11.4-16.0); Hypochromasia Marked; MCH 32.4 pg (25.0-35.0); MCHC 31.4 g/dL (31.0-37.0); MCV 103.2 fL (80.0-100.0); Macrocytosis Moderate; Mean Platelet Volume 8.4; Platelet Count 327 k/uL (150-450); RBC 2.25 m/uL (3.80-5.40); RDW 16.1 % (11.5-15.5)
[2023-06-21 09:06] LABS: ALT 56 U/L (4-34); AST 44 U/L (14-36); African American GFR (CKD) 15 (>60 ml/min/1.73 sqM); Albumin 2.3 g/dL (3.5-5.0); Alkaline Phosphatase 65 U/L (38-126); Anion Gap 5 mmol/L; Blood Urea Nitrogen 19 mg/dL (7-17); C Reactive Protein 7.3 mg/dL (<1.0); Calcium 8.1 mg/dL (8.4-10.2); Carbon Dioxide 27 mmol/L (22-30); Chloride 105 mmol/L (98-107); Glucose 97 mg/dL (74-99); Non-African American GFR(CKD) 13 (>60 ml/min/1.73 sqM); Phosphorus 2.7 mg/dL (2.5-4.5); Potassium 3.6 mmol/L (3.5-5.1); Sodium 137 mmol/L (137-145); Total Bilirubin 0.4 mg/dL (0.2-1.3)
[2023-06-21] MEDS: CHOLESTYRAMINE (WITH SUGAR) 4 GM PACKET PO SCH ×2 (10:10→17:20)
[2023-06-21] MEDS: SODIUM FERRIC GLUCONAT-SUCROSE 125 MG in SODIUM CHLORIDE 0.9% 100 ML IVPB SCH (10:10)
[2023-06-21 10:56] LABS: Metamyelocytes % 5 %; Myelocytes # (M) 0.66 k/uL (0); Myelocytes % 4 %; Neutrophils % (M) 74 %; Nucleated Red Blood Cells 1 /100 WBC (0-0); Total Cells Counted 200
[2023-06-21 10:58] LABS: Eosinophils # (M) 0.16 k/uL (0-0.7); Lymphocytes # (M) 0.98 k/uL (1.0-4.8); Metamyelocytes # (M) 0.82 k/uL (0); Monocytes # (M) 1.97 k/uL (0-1.0); Neutrophils # (M) 12.14 k/uL (1.3-7.7); WBC 16.4 k/uL (3.8-10.6)
[2023-06-21] MEDS ORDERED: POTASSIUM CHLORIDE ER 20 MEQ TAB.ER PO STA (12:23)
--- NOTE | 2023-06-21 12:23 | P.PN ---
Subjective Patient is seen in follow-up for acute kidney injury, hemodialysis dependent. Dialysis access changed 06/18/2023. Currently resting in bed. On nasal cannula. Denies chest pain or shortness of breath. Urine output remains low. Tolerated nearly 3 L ultrafiltration yesterday. Vital signs are stable. General: No acute distress. HEENT: Head exam is unremarkable. LUNGS: No audible rhonchi or wheezes. HEART: Rate and Rhythm are regular. ABDOMEN: Nontender. EXTREMITITES: 2+ edema. Objective - Vital Signs Vital signs: Vital Signs Temp 97.8 F 06/21/23 04:00 Pulse 84 06/21/23 08:20 Resp 18 06/21/23 08:20 BP 123/69 06/21/23 08:20 Pulse Ox 96 06/21/23 08:20 FiO2 Intake & Output 06/20/23 06/21/23 06/21/23 18:59 06:59 18:59 Intake Total 360 400 Output Total 400 2900 Balance -40 -2500 Weight 94 kg 90.5 kg Intake: Oral 360 Hemodialysis 400 Output: Urine 400 Hemodialysis 2900 Other: Voiding Method Indwelling Catheter Indwelling Catheter Indwelling Catheter - Labs CBC & Chem 7: 06/21/23 08:06 06/21/23 08:06 Labs: Abnormal Lab Results - Last 24 Hours (Table) 06/20/23 06/20/23 06/21/23 Range/Units 10:53 17:08 08:06 WBC (3.8-10.6) k/uL RBC (3.80-5.40) m/uL Hgb (11.4-16.0) gm/dL Hct (34.0-46.0) % MCV (80.0-100.0) fL RDW (11.5-15.5) % Neutrophils # (Manual) 15.20 H (1.3-7.7) k/uL Lymphocytes # (Manual) 0.72 L (1.0-4.8) k/uL Monocytes # (Manual) 1.09 H (0-1.0) k/uL Metamyelocytes # (Man) 0.36 H (0) k/uL Myelocytes # (Manual) 0.54 H (0) k/uL Nucleated RBCs (0-0) /100 WBC Potassium 2.9 L (3.5-5.1) mmol/L BUN 19 H (7-17) mg/dL Creatinine 3.14 H (0.52-1.04) mg/dL Calcium 8.1 L (8.4-10.2) mg/dL AST 44 H (14-36) U/L ALT 56 H (4-34) U/L C-Reactive Protein 7.3 H (<1.0) mg/dL Total Protein 5.0 L (6.3-8.2) g/dL Albumin 2.3 L (3.5-5.0) g/dL 06/21/23 Range/Units 08:06 WBC 16.4 H (3.8-10.6) k/uL RBC 2.25 L (3.80-5.40) m/uL Hgb 7.3 L (11.4-16.0) gm/dL Hct 23.2 L (34.0-46.0) % MCV 103.2 H (80.0-100.0) fL RDW 16.1 H (11.5-15.5) % Neutrophils # (Manual) 12.14 H (1.3-7.7) k/uL Lymphocytes # (Manual) 0.98 L (1.0-4.8) k/uL Monocytes # (Manual) 1.97 H (0-1.0) k/uL Metamyelocytes # (Man) 0.82 H (0) k/uL Myelocytes # (Manual) 0.66 H (0) k/uL Nucleated RBCs 1 H (0-0) /100 WBC Potassium (3.5-5.1) mmol/L BUN (7-17) mg/dL Creatinine (0.52-1.04) mg/dL Calcium (8.4-10.2) mg/dL AST (14-36) U/L ALT (4-34) U/L C-Reactive Protein (<1.0) mg/dL Total Protein (6.3-8.2) g/dL Albumin (3.5-5.0) g/dL Assessment and Plan Plan: Assessment: 1. Acute kidney injury secondary to ATN secondary to rhabdomyolysis and severe sepsis. Urine output remains low. No hydronephrosis noted on kidney ultrasound. Started on hemodialysis 06/14/2023. Has a tunneled left femoral catheter. Creatinine 0.8 in March 2023. 2. Rhabdomyolysis secondary to fall. CK levels trending down. 3. Volume overload. Improving with ultrafiltration. 4. Severe sepsis secondary to E. coli UTI and bacteremia on antibiotics. 5. Hypocalcemia. Corrected calcium now normal. Vitamin D level 10.0. On Drisdol. On PhosLo. Tums discontinued. 6. Hyperphosphatemia secondary to acute kidney injury maintained on PhosLo. Phosphorus level 2.7 dated 06/21/2023. 7. Anemia. Iron deficiency noted. Plan: Hemodialysis tomorrow. Avoid nephrotoxins. Monitor for renal recovery. Maintain IV iron. Maintain torsemide 40 mg once daily. Stop PhosLo as phosphorus is on the lower side.
[2023-06-21] MEDS: MORPHINE SULFATE 4 MG/ML SYRINGE IV PRN ×2 (16:18→20:34)
--- NOTE | 2023-06-21 17:08 | P.PN ---
Subjective Progress Note Date: 06/21/23 This is an 82-year-old female patient who originally presented to the hospital after she sustained a fall and was on the ground for quite some time before patient was able to get help. Patient apparently had diarrhea prior to fall and was not eating or drinking much. Patient has a past medical history of hypertension hyperlipidemia. Upon arrival patient was found to have a creatinine kinase level of 40,048 white blood cell 31.2 creatinine 2.66 bun 33 AST 694 and ALT 114. Patient was also positive for UTI which was followed by positive blood culture was also found to have a left para-prosthetic lateral condyle fracture of the distal femur. Orthopedic services, nephrology and infectious disease is following. I am resuming care of patient on 06/13/2023 Dr. Gee previously covering On 06/13/2023 patient alert and oriented 3 currently sitting up in bed. Per orthopedic services continue with conservative management. Awaiting lab work but creatinine significantly increased yesterday to 4.24 and 149. Nephrology services are following. Patient remains on IV antibiotics infectious disease services are following. Current vital signs temp 98.0, heart rate 73, respiratory rate 20, blood pressure 124/65 and pulse ox 95% on 2 L On 06/14/2023 patient was seen and examined on the telemetry floor she is alert and oriented 3 in no apparent distress, she is resting in bed, she is compl aining of lower extremity pain, otherwise she denies any complaints at this time, she underwent her first session of hemodialysis today, there is no fever or chills no headache or dizziness no chest pain no shortness of breath no cough no nausea or vomiting no abdominal pain no diarrhea and no urinary symptoms. On 06/15/2023 patient alert and oriented 3 currently resting comfortably in bed. Patient was started on hemodialysis plans for additional hemodialysis today per nephrology services. Current vital signs temp 98.1, heart rate 73, respiratory 16, blood pressure 11/23/1973 with pulse ox 98% on 2 L. labwork currently pending. On 06/16/2023 patient was seen and examined on the medical floor she is alert and oriented 3 in no apparent distress there is no fever or chills no headache or dizziness no chest pain no shortness of breath no cough no nausea or vomiting no abdominal pain no diarrhea and no urinary symptoms. She underwent hemodialysis again today, will continue to follow closely, PT and OT consult. On 06/17/2023 patient is alert and oriented 3. Patient remains on IV Lasix. Left upper extremity having increased edema will order venous Doppler to rule out DVT. Creatinine improving to 3.93 bun 41. Current vital signs temp 98.7, heart rate 79, respiratory rate 15, blood pressure 140/70 with a pulse ox of 98% on 2 L On 06/18/2023 patient was seen and examined on the medical floor, she is alert and oriented 3 in no apparent distress, she is complaining of diarrhea, and complaining of generalized pain, otherwise she denies any complaints, there is no fever or chills no headache or dizziness no chest pain no shortness of breath no cough no nausea or vomiting no abdominal pain no blood in the stools no burning with urination no frequency or urgency and no hematuria. Patient has generalized weakness. Temperature today is 98.4 pulse 84 respiration 18 blood pressure 123/56 pulse ox is 92% on 2 L nasal cannula, labs from today are still pending. C. diff EIA yesterday was negative. On 06/19/2023 patient is alert and oriented 3 patient continued to have loose stools at this time will order C. diff PCR for more accurate testing. Patient underwent hemodialysis access placement yesterday. Patient denies chest pain or shortness breath. Patient denies nausea vomiting or diarrhea. Patient denies any urinary burning or frequency. On 06/20/2023 patient was seen and examined on the medical floor she is alert and oriented 3 in no apparent distress, she is still complaining of diarrhea, her white blood count remains elevated, she remains on hemodialysis, she is complaining of generalized weakness otherwise she denies any complaints at this time there is no fever or chills no headache or dizziness no chest pain no shortness of breath no cough no nausea or vomiting no abdominal pain and no urinary symptoms. On 06/21/2023 patient was seen and examined on the medical floor she is alert and oriented 3 in no apparent distress she reports some improvement in her diarrhea, white blood count is improving and kidney function is improving, she i s complaining of generalized weakness and pain in her right lower extremity otherwise she denies any complaints at this time. Objective - Vital Signs Vital signs: Vital Signs Temp 99 F 06/21/23 11:00 Pulse 85 06/21/23 11:00 Resp 17 06/21/23 11:00 BP 113/64 06/21/23 11:00 Pulse Ox 93 L 06/21/23 11:00 FiO2 Intake & Output 06/20/23 06/21/23 06/21/23 18:59 06:59 18:59 Intake Total 360 400 Output Total 400 2900 Balance -40 -2500 Weight 94 kg 90.5 kg Intake: Oral 360 Hemodialysis 400 Output: Urine 400 Hemodialysis 2900 Other: Voiding Method Indwelling Catheter Indwelling Catheter Indwelling Catheter - Exam In general patient is alert and oriented x 3 in no distress HEENT head normocephalic and atraumatic Neck is supple no JVD no goiter no lymphadenopathy no carotid bruit Chest examination is clear to auscultation no crackles no wheezing Cardiac exam reveals regular heart sounds S1 and S2 no gallops no murmurs Abdomen is soft nontender no organomegaly with normal bowel sounds Extremity exam reveals no edema no cyanosis or clubbing Neurological examination reveals no gross focal deficits - Labs CBC & Chem 7: 06/21/23 08:06 06/21/23 08:06 Labs: Abnormal Lab Results - Last 24 Hours (Table) 06/20/23 06/21/23 06/21/23 Range/Units 17:08 08:06 08:06 WBC 16.4 H (3.8-10.6) k/uL RBC 2.25 L (3.80-5.40) m/uL Hgb 7.3 L (11.4-16.0) gm/dL Hct 23.2 L (34.0-46.0) % MCV 103.2 H (80.0-100.0) fL RDW 16.1 H (11.5-15.5) % Neutrophils # (Manual) 12.14 H (1.3-7.7) k/uL Lymphocytes # (Manual) 0.98 L (1.0-4.8) k/uL Monocytes # (Manual) 1.97 H (0-1.0) k/uL Metamyelocytes # (Man) 0.82 H (0) k/uL Myelocytes # (Manual) 0.66 H (0) k/uL Nucleated RBCs 1 H (0-0) /100 WBC Potassium 2.9 L (3.5-5.1) mmol/L BUN 19 H (7-17) mg/dL Creatinine 3.14 H (0.52-1.04) mg/dL Calcium 8.1 L (8.4-10.2) mg/dL AST 44 H (14-36) U/L ALT 56 H (4-34) U/L C-Reactive Protein 7.3 H (<1.0) mg/dL Total Protein 5.0 L (6.3-8.2) g/dL Albumin 2.3 L (3.5-5.0) g/dL Assessment and Plan Assessment: 1. Fall with rhabdomyolysis 2. Urinary tract infection 3. E. coli bacteremia 4. Acute kidney injury secondary to ATN, started on hemodialysis today 5. Elevated liver liver enzymes 6. Left periprosthetic lateral condyle fracture of the distal femur. Orthopedic services are following conservative management at this time 7. Right lower extremity cellulitis 8. Elevated troponins per cardiology likely secondary to elevated CPK 9. Diarrhea. Patient was negative for C. diff was given Lomotil 10. Increased swelling to left upper extremity well ordered venous Doppler to rule out DVT. Patient maintained on IV Lasix Infectious disease, cardiology, nephrology and orthopedic services are following Patient started on hemodialysis on 06/13/2023 Patient remains on IV antibiotics Repeat labs ordered
[2023-06-22] MEDS: MONTELUKAST 10 MG TAB PO SCH (08:49)
[2023-06-22] MEDS: VANCOMYCIN 125 MG CAPSULE PO SCH ×4 (08:50→20:36)
[2023-06-22] MEDS: TORSEMIDE 20 MG TAB PO SCH (08:50)
[2023-06-22] MEDS: NYSTATIN 100,000 UNIT/GM POWD 15 GM TOPICAL SCH ×2 (08:51→19:41)
[2023-06-22] MEDS: CHOLESTYRAMINE (WITH SUGAR) 4 GM PACKET PO SCH ×2 (10:03→17:20)
[2023-06-22] MEDS: SODIUM FERRIC GLUCONAT-SUCROSE 125 MG in SODIUM CHLORIDE 0.9% 100 ML IVPB SCH (10:03)
[2023-06-22 10:05] LABS: ALT 49 U/L (4-34); AST 40 U/L (14-36); African American GFR (CKD) 10 (>60 ml/min/1.73 sqM); Albumin 2.5 g/dL (3.5-5.0); Alkaline Phosphatase 71 U/L (38-126); Anion Gap 6 mmol/L; Blood Urea Nitrogen 22 mg/dL (7-17); Calcium 8.4 mg/dL (8.4-10.2); Carbon Dioxide 27 mmol/L (22-30); Chloride 104 mmol/L (98-107); Glucose 135 mg/dL (74-99); Non-African American GFR(CKD) 9 (>60 ml/min/1.73 sqM); Potassium 3.6 mmol/L (3.5-5.1); Sodium 137 mmol/L (137-145); Total Bilirubin 0.4 mg/dL (0.2-1.3); Total Protein 5.3 g/dL (6.3-8.2)
--- NOTE | 2023-06-22 10:31 | P.PN ---
Subjective Progress Note Date: 06/22/23 This is an 82-year-old female patient who originally presented to the hospital after she sustained a fall and was on the ground for quite some time before patient was able to get help. Patient apparently had diarrhea prior to fall and was not eating or drinking much. Patient has a past medical history of hypertension hyperlipidemia. Upon arrival patient was found to have a creatinine kinase level of 40,048 white blood cell 31.2 creatinine 2.66 bun 33 AST 694 and ALT 114. Patient was also positive for UTI which was followed by positive blood culture was also found to have a left para-prosthetic lateral condyle fracture of the distal femur. Orthopedic services, nephrology and infectious disease is following. I am resuming care of patient on 06/13/2023 Dr. Gee previously covering On 06/13/2023 patient alert and oriented 3 currently sitting up in bed. Per orthopedic services continue with conservative management. Awaiting lab work but creatinine significantly increased yesterday to 4.24 and 149. Nephrology services are following. Patient remains on IV antibiotics infectious disease services are following. Current vital signs temp 98.0, heart rate 73, respiratory rate 20, blood pressure 124/65 and pulse ox 95% on 2 L On 06/14/2023 patient was seen and examined on the telemetry floor she is alert and oriented 3 in no apparent distress, she is resting in bed, she is compl aining of lower extremity pain, otherwise she denies any complaints at this time, she underwent her first session of hemodialysis today, there is no fever or chills no headache or dizziness no chest pain no shortness of breath no cough no nausea or vomiting no abdominal pain no diarrhea and no urinary symptoms. On 06/15/2023 patient alert and oriented 3 currently resting comfortably in bed. Patient was started on hemodialysis plans for additional hemodialysis today per nephrology services. Current vital signs temp 98.1, heart rate 73, respiratory 16, blood pressure 11/23/1973 with pulse ox 98% on 2 L. labwork currently pending. On 06/16/2023 patient was seen and examined on the medical floor she is alert and oriented 3 in no apparent distress there is no fever or chills no headache or dizziness no chest pain no shortness of breath no cough no nausea or vomiting no abdominal pain no diarrhea and no urinary symptoms. She underwent hemodialysis again today, will continue to follow closely, PT and OT consult. On 06/17/2023 patient is alert and oriented 3. Patient remains on IV Lasix. Left upper extremity having increased edema will order venous Doppler to rule out DVT. Creatinine improving to 3.93 bun 41. Current vital signs temp 98.7, heart rate 79, respiratory rate 15, blood pressure 140/70 with a pulse ox of 98% on 2 L On 06/18/2023 patient was seen and examined on the medical floor, she is alert and oriented 3 in no apparent distress, she is complaining of diarrhea, and complaining of generalized pain, otherwise she denies any complaints, there is no fever or chills no headache or dizziness no chest pain no shortness of breath no cough no nausea or vomiting no abdominal pain no blood in the stools no burning with urination no frequency or urgency and no hematuria. Patient has generalized weakness. Temperature today is 98.4 pulse 84 respiration 18 blood pressure 123/56 pulse ox is 92% on 2 L nasal cannula, labs from today are still pending. C. diff EIA yesterday was negative. On 06/19/2023 patient is alert and oriented 3 patient continued to have loose stools at this time will order C. diff PCR for more accurate testing. Patient underwent hemodialysis access placement yesterday. Patient denies chest pain or shortness breath. Patient denies nausea vomiting or diarrhea. Patient denies any urinary burning or frequency. On 06/20/2023 patient was seen and examined on the medical floor she is alert and oriented 3 in no apparent distress, she is still complaining of diarrhea, her white blood count remains elevated, she remains on hemodialysis, she is complaining of generalized weakness otherwise she denies any complaints at this time there is no fever or chills no headache or dizziness no chest pain no shortness of breath no cough no nausea or vomiting no abdominal pain and no urinary symptoms. On 06/21/2023 patient was seen and examined on the medical floor she is alert and oriented 3 in no apparent distress she reports some improvement in her diarrhea, white blood count is improving and kidney function is improving, she i s complaining of generalized weakness and pain in her right lower extremity otherwise she denies any complaints at this time. On 06/22/2023 patient's alert and oriented 3. Patient reports some improvement with loose stools. Patient remains on oral vancomycin. Labwork currently pending. Current vital signs temp 99.3, heart rate 88, respiratory rate 17, blood pressure 102/63 with pulse ox of 97% on 2 L Objective - Vital Signs Vital signs: Vital Signs Temp 99.3 F 06/22/23 08:45 Pulse 88 06/22/23 08:45 Resp 17 06/22/23 08:45 BP 102/63 06/22/23 08:45 Pulse Ox 91 L 06/22/23 08:45 FiO2 Intake & Output 06/21/23 06/22/23 06/22/23 18:59 06:59 18:59 Output Total 100 Balance -100 Output: Urine 100 Other: Voiding Method Indwelling Catheter Indwelling Catheter Indwelling Catheter - Exam In general patient is alert and oriented x 3 in no distress HEENT head normocephalic and atraumatic Neck is supple no JVD no goiter no lymphadenopathy no carotid bruit Chest examination is clear to auscultation no crackles no wheezing Cardiac exam reveals regular heart sounds S1 and S2 no gallops no murmurs Abdomen is soft nontender no organomegaly with normal bowel sounds Extremity exam reveals no edema no cyanosis or clubbing Neurological examination reveals no gross focal deficits - Labs CBC & Chem 7: 06/21/23 08:06 06/22/23 08:16 Labs: Abnormal Lab Results - Last 24 Hours (Table) 06/21/23 06/22/23 Range/Units 08:06 08:16 WBC 16.4 H (3.8-10.6) k/uL Neutrophils # (Manual) 12.14 H (1.3-7.7) k/uL Lymphocytes # (Manual) 0.98 L (1.0-4.8) k/uL Monocytes # (Manual) 1.97 H (0-1.0) k/uL Metamyelocytes # (Man) 0.82 H (0) k/uL Myelocytes # (Manual) 0.66 H (0) k/uL Nucleated RBCs 1 H (0-0) /100 WBC BUN 22 H (7-17) mg/dL Creatinine 4.35 H (0.52-1.04) mg/dL Glucose 135 H (74-99) mg/dL AST 40 H (14-36) U/L ALT 49 H (4-34) U/L Total Protein 5.3 L (6.3-8.2) g/dL Albumin 2.5 L (3.5-5.0) g/dL Assessment and Plan Assessment: 1. Fall with rhabdomyolysis 2. Urinary tract infection 3. E. coli bacteremia 4. Acute kidney injury secondary to ATN, started on hemodialysis today 5. Elevated liver liver enzymes 6. Left periprosthetic lateral condyle fracture of the distal femur. Orthopedic services are following conservative management at this time 7. Right lower extremity cellulitis 8. Elevated troponins per cardiology likely secondary to elevated CPK 9. Diarrhea. Possible clinical suspicion for C. diff patient started on oral vancomycin per ID 10. Increased swelling to left upper extremity well ordered venous Doppler to rule out DVT. Patient maintained on IV Lasix Infectious disease, cardiology, nephrology and orthopedic services are following Patient started on hemodialysis on 06/13/2023 Patient remains on IV antibiotics Repeat labs ordered
[2023-06-22 10:56] LABS: Anisocytosis Slight; Basophils # (A) 0.1 k/uL (0-0.2); Basophils % (A) 1 %; Eosinophils # (A) 0.4 k/uL (0-0.7); Eosinophils % (A) 2 %; HCT 27.4 % (34.0-46.0); HGB 8.3 gm/dL (11.4-16.0); Hypochromasia Marked; Lymphocytes # (A) 1.3 k/uL (1.0-4.8); Lymphocytes % (A) 8 %; MCH 32.3 pg (25.0-35.0); MCHC 30.5 g/dL (31.0-37.0); MCV 106.1 fL (80.0-100.0); Macrocytosis Moderate; Mean Platelet Volume 8.5; Monocytes # (A) 0.8 k/uL (0-1.0); Monocytes % (A) 5 %; Neutrophils # (A) 14.3 k/uL (1.3-7.7); Neutrophils % (A) 84 %; Platelet Count 371 k/uL (150-450); RBC 2.58 m/uL (3.80-5.40); RDW 16.6 % (11.5-15.5); WBC 17.1 k/uL (3.8-10.6)
[2023-06-22] MEDS: ERGOCALCIFEROL 1,250 MCG (50,000 IU) CAPSULE PO SCH (12:20)
[2023-06-22 14:32] VITALS: BMI 36.5
--- NOTE | 2023-06-22 15:05 | P.PN ---
Subjective Patient is seen in follow-up for acute kidney injury, hemodialysis dependent. Dialysis access changed 06/18/2023. Currently resting in bed. Denies chest pain or shortness of breath. Urine output remains low. Scheduled for dialysis today. Vital signs are stable. General: No acute distress. HEENT: Head exam is unremarkable. LUNGS: No audible rhonchi or wheezes. HEART: Rate and Rhythm are regular. ABDOMEN: Nontender. EXTREMITITES: 2+ edema. Objective - Vital Signs Vital signs: Vital Signs Temp 99 F 06/22/23 11:50 Pulse 86 06/22/23 11:50 Resp 18 06/22/23 11:50 BP 131/68 06/22/23 11:50 Pulse Ox 92 L 06/22/23 11:50 FiO2 Intake & Output 06/21/23 06/22/23 06/22/23 18:59 06:59 18:59 Intake Total 240 Output Total 100 Balance -100 240 Weight 90.5 kg Intake: Oral 240 Output: Urine 100 Other: Voiding Method Indwelling Catheter Indwelling Catheter Indwelling Catheter # Bowel Movements 1 - Labs CBC & Chem 7: 06/22/23 08:16 06/22/23 08:16 Labs: Abnormal Lab Results - Last 24 Hours (Table) 06/22/23 06/22/23 Range/Units 08:16 08:16 WBC 17.1 H (3.8-10.6) k/uL RBC 2.58 L (3.80-5.40) m/uL Hgb 8.3 L (11.4-16.0) gm/dL Hct 27.4 L (34.0-46.0) % MCV 106.1 H (80.0-100.0) fL MCHC 30.5 L (31.0-37.0) g/dL RDW 16.6 H (11.5-15.5) % Neutrophils # 14.3 H (1.3-7.7) k/uL BUN 22 H (7-17) mg/dL Creatinine 4.35 H (0.52-1.04) mg/dL Glucose 135 H (74-99) mg/dL AST 40 H (14-36) U/L ALT 49 H (4-34) U/L Total Protein 5.3 L (6.3-8.2) g/dL Albumin 2.5 L (3.5-5.0) g/dL Assessment and Plan Plan: Assessment: 1. Acute kidney injury secondary to ATN secondary to rhabdomyolysis and severe sepsis. Urine output remains low. No hydronephrosis noted on kidney ultrasound. Started on hemodialysis 06/14/2023. Has a tunneled left femoral catheter. Creatinine 0.8 in March 2023. 2. Rhabdomyolysis secondary to fall. CK levels trending down. 3. Volume overload. Improving with ultrafiltration. 4. Severe sepsis secondary to E. coli UTI and bacteremia on antibiotics. 5. Hypocalcemia. Corrected calcium now normal. Vitamin D level 10.0. On Drisdol. On PhosLo. Tums discontinued. 6. Hyperphosphatemia secondary to acute kidney injury maintained on PhosLo. Phosphorus level 2.7 dated 06/21/2023. PhosLo discontinued. 7. Anemia. Iron deficiency noted. Plan: Hemodialysis today. She will be maintained on Tuesday schedule. Avoid nephrotoxins. Monitor for renal recovery. Maintain IV iron. Maintain torsemide 40 mg once daily.
--- NOTE | 2023-06-22 17:05 | P.PN ---
Subjective Progress Note Date: 06/21/23 Principal diagnosis: UTI and bacteremia patient is a 82-year-old female with a past medical history significant for hypertension hyperlipidemia history of right lower extremity venous stasis ulcer and cellulitis who was brought to the hospital yesterday afternoon after apparent the patient have a fall at home , Left knee x-ray did shows small joint effusion and small periprosthetic fracture along the medial aspect , patient also have a elevated white count and positive UA and blood cultures came back positive. Patient has been started on dialysis for worsening kidney function On today's evaluation that is 06/21/2023 patient remains to be afebrile, the patient is breathing comfortably on 2 L nasal cannula oxygen, patient denies chest pain shortness of breath did have occasional dry cough, the patient denies nausea no vomiting no abdominal pain and the patient diarrhea has slowed down no bowel movement last night or this morning Patient white count is down to 16.4 today creatinine is 3.14, stool for C. diff PCR came back negative Objective - Vital Signs Vital signs: Vital Signs Temp 97.8 F 06/21/23 04:00 Pulse 84 06/21/23 08:20 Resp 18 06/21/23 08:20 BP 123/69 06/21/23 08:20 Pulse Ox 96 06/21/23 08:20 FiO2 Intake & Output 06/20/23 06/21/23 06/21/23 18:59 06:59 18:59 Intake Total 360 400 Output Total 400 2900 Balance -40 -2500 Weight 94 kg 90.5 kg Intake: Oral 360 Hemodialysis 400 Output: Urine 400 Hemodialysis 2900 Other: Voiding Method Indwelling Catheter Indwelling Catheter Indwelling Catheter - Exam GENERAL DESCRIPTION: An elderly female lying in bed in no distress RESPIRATORY SYSTEM: Unlabored breathing , decreased breath sounds at bases HEART: S1 S2 regular rate and rhythm , ABDOMEN: Soft , no tenderness EXTREMITIES: Right lower extremity wounds has decreased in size with no slough or surrounding redness - Labs CBC & Chem 7: 06/22/23 08:16 06/22/23 08:16 Labs: Abnormal Lab Results - Last 24 Hours (Table) 06/20/23 06/20/23 06/21/23 Range/Units 10:53 17:08 08:06 WBC (3.8-10.6) k/uL RBC (3.80-5.40) m/uL Hgb (11.4-16.0) gm/dL Hct (34.0-46.0) % MCV (80.0-100.0) fL RDW (11.5-15.5) % Neutrophils # (Manual) 15.20 H (1.3-7.7) k/uL Lymphocytes # (Manual) 0.72 L (1.0-4.8) k/uL Monocytes # (Manual) 1.09 H (0-1.0) k/uL Metamyelocytes # (Man) 0.36 H (0) k/uL Myelocytes # (Manual) 0.54 H (0) k/uL Nucleated RBCs (0-0) /100 WBC Potassium 2.9 L (3.5-5.1) mmol/L BUN 19 H (7-17) mg/dL Creatinine 3.14 H (0.52-1.04) mg/dL Calcium 8.1 L (8.4-10.2) mg/dL AST 44 H (14-36) U/L ALT 56 H (4-34) U/L C-Reactive Protein 7.3 H (<1.0) mg/dL Total Protein 5.0 L (6.3-8.2) g/dL Albumin 2.3 L (3.5-5.0) g/dL 06/21/ Range/Units 08:06 WBC 16.4 H (3.8-10.6) k/uL RBC 2.25 L (3.80-5.40) m/uL Hgb 7.3 L (11.4-16.0) gm/dL Hct 23.2 L (34.0-46.0) % MCV 103.2 H (80.0-100.0) fL RDW 16.1 H (11.5-15.5) % Neutrophils # (Manual) 12.14 H (1.3-7.7) k/uL Lymphocytes # (Manual) 0.98 L (1.0-4.8) k/uL Monocytes # (Manual) 1.97 H (0-1.0) k/uL Metamyelocytes # (Man) 0.82 H (0) k/uL Myelocytes # (Manual) 0.66 H (0) k/uL Nucleated RBCs 1 H (0-0) /100 WBC Potassium (3.5-5.1) mmol/L BUN (7-17) mg/dL Creatinine (0.52-1.04) mg/dL Calcium (8.4-10.2) mg/dL AST (14-36) U/L ALT (4-34) U/L C-Reactive Protein (<1.0) mg/dL Total Protein (6.3-8.2) g/dL Albumin (3.5-5.0) g/dL Assessment and Plan (1) Sepsis Current Visit: Yes Status: Acute Code(s): A41.9 - SEPSIS, UNSPECIFIED ORGANISM SNOMED Code(s): 40840143 (2) Gram-negative bacteremia Current Visit: Yes Status: Acute Code(s): R78.81 - BACTEREMIA SNOMED Code(s): 547813399121 (3) Urinary tract infection Current Visit: Yes Status: Acute Code(s): N39.0 - URINARY TRACT INFECTION, SITE NOT SPECIFIED SNOMED Code(s): 28927385 Plan: 1right lower extremity venous stasis ulcer and no cellulitis continue Local wound care to continue with Aquacel silver dressing followed by compression dressing will be changed to weekly 2patient did have E. coli bacteremia likely secondary urinary source, ultrasound of the kidney and bladder area with no evidence of any obstructive uropathy, Repeat blood cultures has been negative so far , patient to continue with Rocephin for her bacteremia 3patient white count is trending down with the addition of oral vancomycin to continue and monitor clinical course closely Son at bedside and multiple questions concerned were answered Dictation was produced using [employer] dictation software. please excuse any grammatical, word or spelling errors. Time with Patient: Less than 30
[2023-06-22] MEDS: MORPHINE SULFATE 4 MG/ML SYRINGE IV PRN (19:38)
[2023-06-23] MEDS: MORPHINE SULFATE 4 MG/ML SYRINGE IV PRN ×2 (00:31→09:55)
[2023-06-23 08:23] LABS: ALT 45 U/L (4-34); AST 43 U/L (14-36); African American GFR (CKD) 14 (>60 ml/min/1.73 sqM); Albumin 2.4 g/dL (3.5-5.0); Alkaline Phosphatase 63 U/L (38-126); Anion Gap 9 mmol/L; Blood Urea Nitrogen 16 mg/dL (7-17); Calcium 7.9 mg/dL (8.4-10.2); Carbon Dioxide 23 mmol/L (22-30); Chloride 103 mmol/L (98-107); Glucose 92 mg/dL (74-99); Non-African American GFR(CKD) 12 (>60 ml/min/1.73 sqM); Potassium 3.4 mmol/L (3.5-5.1); Sodium 135 mmol/L (137-145); Total Bilirubin 0.4 mg/dL (0.2-1.3); Total Protein 5.2 g/dL (6.3-8.2)
[2023-06-23 08:28] LABS: Anisocytosis Slight; Basophils # (A) 0.1 k/uL (0-0.2); Basophils % (A) 0 %; Eosinophils # (A) 0.4 k/uL (0-0.7); Eosinophils % (A) 2 %; HCT 26.1 % (34.0-46.0); HGB 8.1 gm/dL (11.4-16.0); Hypochromasia Marked; Lymphocytes # (A) 1.3 k/uL (1.0-4.8); Lymphocytes % (A) 8 %; MCH 32.9 pg (25.0-35.0); MCHC 31.1 g/dL (31.0-37.0); Macrocytosis Moderate; Mean Platelet Volume 8.9; Monocytes # (A) 0.8 k/uL (0-1.0); Monocytes % (A) 5 %; Neutrophils # (A) 13.4 k/uL (1.3-7.7); Neutrophils % (A) 83 %; Platelet Count 252 k/uL (150-450); RBC 2.46 m/uL (3.80-5.40); WBC 16.1 k/uL (3.8-10.6)
[2023-06-23] MEDS: MONTELUKAST 10 MG TAB PO SCH (08:58)
[2023-06-23] MEDS: VANCOMYCIN 125 MG CAPSULE PO SCH ×4 (08:59→20:50)
[2023-06-23] MEDS: TORSEMIDE 20 MG TAB PO SCH (09:01)
[2023-06-23] MEDS: NYSTATIN 100,000 UNIT/GM POWD 15 GM TOPICAL SCH ×2 (09:03→20:50)
[2023-06-23] MEDS: CHOLESTYRAMINE (WITH SUGAR) 4 GM PACKET PO SCH ×2 (10:45→17:35)
[2023-06-23] MEDS ORDERED: POTASSIUM CHLORIDE ER 20 MEQ TAB.ER PO STA (11:07)
--- NOTE | 2023-06-23 11:07 | P.PN ---
Subjective Patient is seen in follow-up for acute kidney injury, hemodialysis dependent. Dialysis access changed 06/18/2023. Currently resting in bed. Denies chest pain or shortness of breath. Urine output remains low. Tolerated 3.5 L ultrafiltration yesterday. Vital signs are stable. General: No acute distress. HEENT: Head exam is unremarkable. LUNGS: No audible rhonchi or wheezes. HEART: Rate and Rhythm are regular. ABDOMEN: Nontender. EXTREMITITES: 1+ edema. Objective - Vital Signs Vital signs: Vital Signs Temp 98.1 F 06/23/23 09:00 Pulse 87 06/23/23 09:00 Resp 20 06/23/23 09:00 BP 107/66 06/23/23 09:00 Pulse Ox 92 L 06/23/23 09:00 FiO2 21 06/23/23 01:12 Intake & Output 06/22/23 06/23/23 06/23/23 18:59 06:59 18:59 Intake Total 740 50 240 Output Total 3700 Balance -2960 50 240 Weight 90.5 kg Intake: Oral 240 50 240 Hemodialysis 500 Output: Urine 200 Hemodialysis 3500 Other: Voiding Method Indwelling Catheter Indwelling Catheter # Bowel Movements 1 1 1 - Labs CBC & Chem 7: 06/23/23 07:30 06/23/23 07:30 Labs: Abnormal Lab Results - Last 24 Hours (Table) 06/23/23 06/23/23 Range/Units 07:30 07:30 WBC 16.1 H (3.8-10.6) k/uL RBC 2.46 L (3.80-5.40) m/uL Hgb 8.1 L (11.4-16.0) gm/dL Hct 26.1 L (34.0-46.0) % MCV 106.0 H (80.0-100.0) fL RDW 17.0 H (11.5-15.5) % Neutrophils # 13.4 H (1.3-7.7) k/uL Sodium 135 L (137-145) mmol/L Potassium 3.4 L (3.5-5.1) mmol/L Creatinine 3.29 H (0.52-1.04) mg/dL Calcium 7.9 L (8.4-10.2) mg/dL AST 43 H (14-36) U/L ALT 45 H (4-34) U/L Total Protein 5.2 L (6.3-8.2) g/dL Albumin 2.4 L (3.5-5.0) g/dL Assessment and Plan Plan: Assessment: 1. Acute kidney injury secondary to ATN secondary to rhabdomyolysis and severe sepsis. Urine output remains low. No hydronephrosis noted on kidney ultrasound. Started on hemodialysis 06/14/2023. Has a tunneled left femoral catheter. Creatinine 0.8 in March 2023. 2. Rhabdomyolysis secondary to fall. CK levels trending down. 3. Volume overload. Improving with ultrafiltration. 4. Severe sepsis secondary to E. coli UTI and bacteremia on antibiotics. 5. Hypocalcemia. Corrected calcium now normal. Vitamin D level 10.0. On Drisdol. On PhosLo. Tums discontinued. 6. Hyperphosphatemia secondary to acute kidney injury maintained on PhosLo. Phosphorus level 2.7 dated 06/21/2023. PhosLo discontinued. 7. Anemia. Iron deficiency noted - s/p IV iron. Plan: Hemodialysis tomorrow. She will be maintained on Tuesday schedule. Avoid nephrotoxins. Monitor for renal recovery. Maintain torsemide. Add Aranesp.
[2023-06-23] MEDS ORDERED: DARBEPOETIN ALFA 40 MCG/0.4 ML SYRINGE SQ SCH (11:30)
--- NOTE | 2023-06-23 15:36 | P.PN ---
Subjective Progress Note Date: 06/23/23 This is an 82-year-old female patient who originally presented to the hospital after she sustained a fall and was on the ground for quite some time before patient was able to get help. Patient apparently had diarrhea prior to fall and was not eating or drinking much. Patient has a past medical history of hypertension hyperlipidemia. Upon arrival patient was found to have a creatinine kinase level of 40,048 white blood cell 31.2 creatinine 2.66 bun 33 AST 694 and ALT 114. Patient was also positive for UTI which was followed by positive blood culture was also found to have a left para-prosthetic lateral condyle fracture of the distal femur. Orthopedic services, nephrology and infectious disease is following. I am resuming care of patient on 06/13/2023 Dr. Gee previously covering On 06/13/2023 patient alert and oriented 3 currently sitting up in bed. Per orthopedic services continue with conservative management. Awaiting lab work but creatinine significantly increased yesterday to 4.24 and 149. Nephrology services are following. Patient remains on IV antibiotics infectious disease services are following. Current vital signs temp 98.0, heart rate 73, respiratory rate 20, blood pressure 124/65 and pulse ox 95% on 2 L On 06/14/2023 patient was seen and examined on the telemetry floor she is alert and oriented 3 in no apparent distress, she is resting in bed, she is compl aining of lower extremity pain, otherwise she denies any complaints at this time, she underwent her first session of hemodialysis today, there is no fever or chills no headache or dizziness no chest pain no shortness of breath no cough no nausea or vomiting no abdominal pain no diarrhea and no urinary symptoms. On 06/15/2023 patient alert and oriented 3 currently resting comfortably in bed. Patient was started on hemodialysis plans for additional hemodialysis today per nephrology services. Current vital signs temp 98.1, heart rate 73, respiratory 16, blood pressure 11/23/1973 with pulse ox 98% on 2 L. labwork currently pending. On 06/16/2023 patient was seen and examined on the medical floor she is alert and oriented 3 in no apparent distress there is no fever or chills no headache or dizziness no chest pain no shortness of breath no cough no nausea or vomiting no abdominal pain no diarrhea and no urinary symptoms. She underwent hemodialysis again today, will continue to follow closely, PT and OT consult. On 06/17/2023 patient is alert and oriented 3. Patient remains on IV Lasix. Left upper extremity having increased edema will order venous Doppler to rule out DVT. Creatinine improving to 3.93 bun 41. Current vital signs temp 98.7, heart rate 79, respiratory rate 15, blood pressure 140/70 with a pulse ox of 98% on 2 L On 06/18/2023 patient was seen and examined on the medical floor, she is alert and oriented 3 in no apparent distress, she is complaining of diarrhea, and complaining of generalized pain, otherwise she denies any complaints, there is no fever or chills no headache or dizziness no chest pain no shortness of breath no cough no nausea or vomiting no abdominal pain no blood in the stools no burning with urination no frequency or urgency and no hematuria. Patient has generalized weakness. Temperature today is 98.4 pulse 84 respiration 18 blood pressure 123/56 pulse ox is 92% on 2 L nasal cannula, labs from today are still pending. C. diff EIA yesterday was negative. On 06/19/2023 patient is alert and oriented 3 patient continued to have loose stools at this time will order C. diff PCR for more accurate testing. Patient underwent hemodialysis access placement yesterday. Patient denies chest pain or shortness breath. Patient denies nausea vomiting or diarrhea. Patient denies any urinary burning or frequency. On 06/20/2023 patient was seen and examined on the medical floor she is alert and oriented 3 in no apparent distress, she is still complaining of diarrhea, her white blood count remains elevated, she remains on hemodialysis, she is complaining of generalized weakness otherwise she denies any complaints at this time there is no fever or chills no headache or dizziness no chest pain no shortness of breath no cough no nausea or vomiting no abdominal pain and no urinary symptoms. On 06/21/2023 patient was seen and examined on the medical floor she is alert and oriented 3 in no apparent distress she reports some improvement in her diarrhea, white blood count is improving and kidney function is improving, she i s complaining of generalized weakness and pain in her right lower extremity otherwise she denies any complaints at this time. On 06/22/2023 patient's alert and oriented 3. Patient reports some improvement with loose stools. Patient remains on oral vancomycin. Labwork currently pending. Current vital signs temp 99.3, heart rate 88, respiratory rate 17, blood pressure 102/63 with pulse ox of 97% on 2 L On 06/23/2023 patient was seen and examined on the medical floor she is alert and oriented 3 in no apparent distress she is still complaining of significant diarrhea this morning she is complaining of lower extremity pain otherwise she denies any complaints there is no fever or chills no headache or dizziness no chest pain no shortness of breath no cough no nausea or vomiting no abdominal pain and no urinary symptoms. Patient has a pressure ulcer on her sacral area, recommendation per infectious disease is to use zinc oxide ointment. Also infectious disease recommending discontinuing IV Rocephin today. Patient is improving, possible transfer to medicine [facility] tomorrow Objective - Vital Signs Vital signs: Vital Signs Temp 98.4 F 06/23/23 04:00 Pulse 81 06/23/23 04:00 Resp 18 06/23/23 04:00 BP 101/68 06/23/23 04:00 Pulse Ox 93 L 06/23/23 04:00 FiO2 21 06/23/23 01:12 Intake & Output 06/22/23 06/23/23 06/23/23 18:59 06:59 18:59 Intake Total 740 50 240 Output Total 3700 Balance -2960 50 240 Weight 90.5 kg Intake: Oral 240 50 240 Hemodialysis 500 Output: Urine 200 Hemodialysis 3500 Other: Voiding Method Indwelling Catheter Indwelling Catheter # Bowel Movements 1 1 1 - Exam In general patient is alert and oriented x 3 in no distress HEENT head normocephalic and atraumatic Neck is supple no JVD no goiter no lymphadenopathy no carotid bruit Chest examination is clear to auscultation no crackles no wheezing Cardiac exam reveals regular heart sounds S1 and S2 no gallops no murmurs Abdomen is soft nontender no organomegaly with normal bowel sounds Extremity exam reveals no edema no cyanosis or clubbing Neurological examination reveals no gross focal deficits - Labs CBC & Chem 7: 06/23/23 07:30 06/23/23 07:30 Labs: Abnormal Lab Results - Last 24 Hours (Table) 06/22/23 06/23/23 06/23/23 Range/Units 08:16 07:30 07:30 WBC 17.1 H 16.1 H (3.8-10.6) k/uL RBC 2.58 L 2.46 L (3.80-5.40) m/uL Hgb 8.3 L 8.1 L (11.4-16.0) gm/dL Hct 27.4 L 26.1 L (34.0-46.0) % MCV 106.1 H 106.0 H (80.0-100.0) fL MCHC 30.5 L (31.0-37.0) g/dL RDW 16.6 H 17.0 H (11.5-15.5) % Neutrophils # 14.3 H 13.4 H (1.3-7.7) k/uL Sodium 135 L (137-145) mmol/L Potassium 3.4 L (3.5-5.1) mmol/L Creatinine 3.29 H (0.52-1.04) mg/dL Calcium 7.9 L (8.4-10.2) mg/dL AST 43 H (14-36) U/L ALT 45 H (4-34) U/L Total Protein 5.2 L (6.3-8.2) g/dL Albumin 2.4 L (3.5-5.0) g/dL Assessment and Plan Assessment: 1. Fall with rhabdomyolysis 2. Urinary tract infection 3. E. coli bacteremia 4. Acute kidney injury secondary to ATN, started on hemodialysis today 5. Elevated liver liver enzymes 6. Left periprosthetic lateral condyle fracture of the distal femur. Orthopedic services are following conservative management at this time 7. Right lower extremity cellulitis 8. Elevated troponins per cardiology likely secondary to elevated CPK 9. Diarrhea. Possible clinical suspicion for C. diff patient started on oral vancomycin per ID 10. Increased swelling to left upper extremity well ordered venous Doppler to rule out DVT. Patient maintained on IV Lasix Infectious disease, cardiology, nephrology and orthopedic services are following Patient started on hemodialysis on 06/13/2023 Patient remains on IV antibiotics Repeat labs ordered
--- NOTE | 2023-06-23 20:49 | P.PN ---
Subjective Progress Note Date: 06/22/23 Principal diagnosis: UTI and bacteremia patient is a 82-year-old female with a past medical history significant for hypertension hyperlipidemia history of right lower extremity venous stasis ulcer and cellulitis who was brought to the hospital yesterday afternoon after apparent the patient have a fall at home , Left knee x-ray did shows small joint effusion and small periprosthetic fracture along the medial aspect , patient also have a elevated white count and positive UA and blood cultures came back positive. Patient has been started on dialysis for worsening kidney function On today's evaluation that is 06/22/2023 patient remains to be afebrile patient is breathing comfortably on 2 L nasal cannula oxygen denies any chest pain shortness of breath or cough no abdominal pain diarrhea still has slightly slowed down. Patient white count slightly up to 17.1 today creatinine is 4.35 blood culture repeat has been negative Objective - Vital Signs Vital signs: Vital Signs Temp 99 F 06/22/23 11:50 Pulse 87 06/22/23 16:00 Resp 17 06/22/23 16:00 BP 123/63 06/22/23 16:00 Pulse Ox 95 06/22/23 16:00 FiO2 Intake & Output 06/21/23 06/22/23 06/22/23 18:59 06:59 18:59 Intake Total 240 Output Total 100 Balance -100 240 Weight 90.5 kg Intake: Oral 240 Output: Urine 100 Other: Voiding Method Indwelling Catheter Indwelling Catheter Indwelling Catheter # Bowel Movements 1 - Exam GENERAL DESCRIPTION: An elderly female lying in bed in no distress RESPIRATORY SYSTEM: Unlabored breathing , decreased breath sounds at bases HEART: S1 S2 regular rate and rhythm , ABDOMEN: Soft , no tenderness EXTREMITIES: Right lower extremity wounds has decreased in size with no slough or surrounding redness - Labs CBC & Chem 7: 06/23/23 07:30 06/23/23 07:30 Labs: Abnormal Lab Results - Last 24 Hours (Table) 06/22/23 06/22/23 Range/Units 08:16 08:16 WBC 17.1 H (3.8-10.6) k/uL RBC 2.58 L (3.80-5.40) m/uL Hgb 8.3 L (11.4-16.0) gm/dL Hct 27.4 L (34.0-46.0) % MCV 106.1 H (80.0-100.0) fL MCHC 30.5 L (31.0-37.0) g/dL RDW 16.6 H (11.5-15.5) % Neutrophils # 14.3 H (1.3-7.7) k/uL BUN 22 H (7-17) mg/dL Creatinine 4.35 H (0.52-1.04) mg/dL Glucose 135 H (74-99) mg/dL AST 40 H (14-36) U/L ALT 49 H (4-34) U/L Total Protein 5.3 L (6.3-8.2) g/dL Albumin 2.5 L (3.5-5.0) g/dL Assessment and Plan (1) Sepsis Current Visit: Yes Status: Acute Code(s): A41.9 - SEPSIS, UNSPECIFIED ORGANISM SNOMED Code(s): 59188154 (2) Gram-negative bacteremia Current Visit: Yes Status: Acute Code(s): R78.81 - BACTEREMIA SNOMED Code(s): 198305282052 (3) Urinary tract infection Current Visit: Yes Status: Acute Code(s): N39.0 - URINARY TRACT INFECTION, SITE NOT SPECIFIED SNOMED Code(s): 88268062 Plan: 11right lower extremity venous stasis ulcer and no cellulitis continue Local wound care to continue with Aquacel silver dressing followed by compression dressing will be changed to weekly 2patient did have E. coli bacteremia likely secondary urinary source, ultrasound of the kidney and bladder area with no evidence of any obstructive uropathy, Repeat blood cultures has been negative so far , patient to continue with Rocephin to finish treatment for her bacteremia 3leukocytosis questionable related to possible CHF White count slightly up today we will continue patient on oral vancomycin repeat CBC tomorrow Dictation was produced using [employer] dictation software. please excuse any grammatical, word or spelling errors.
--- NOTE | 2023-06-23 20:52 | P.PN ---
Subjective Progress Note Date: 06/23/23 Principal diagnosis: UTI and bacteremia patient is a 82-year-old female with a past medical history significant for hypertension hyperlipidemia history of right lower extremity venous stasis ulcer and cellulitis who was brought to the hospital yesterday afternoon after apparent the patient have a fall at home , Left knee x-ray did shows small joint effusion and small periprosthetic fracture along the medial aspect , patient also have a elevated white count and positive UA and blood cultures came back positive. Patient has been started on dialysis for worsening kidney function On today's evaluation that is 06/23/2023, the patient remains to be afebrile patient is breathing comfortably on room air no chest pain shortness of breath or cough no nausea no vomiting no abdominal pain still complaining of diarrhea and has also developed significant discoloration to the sacral area. White count is down to 16.1 creatinine 3.29 Objective - Vital Signs Vital signs: Vital Signs Temp 98.4 F 06/23/23 11:46 Pulse 85 06/23/23 11:46 Resp 20 06/23/23 11:46 BP 118/68 06/23/23 11:46 Pulse Ox 93 L 06/23/23 11:46 FiO2 21 06/23/23 01:12 Intake & Output 06/22/23 06/23/23 06/23/23 18:59 06:59 18:59 Intake Total 740 50 240 Output Total 3700 Balance -2960 50 240 Weight 90.5 kg Intake: Oral 240 50 240 Hemodialysis 500 Output: Urine 200 Hemodialysis 3500 Other: Voiding Method Indwelling Catheter Indwelling Catheter Indwelling Catheter # Bowel Movements 1 1 1 - Exam GENERAL DESCRIPTION: An elderly female lying in bed in no distress RESPIRATORY SYSTEM: Unlabored breathing , decreased breath sounds at bases HEART: S1 S2 regular rate and rhythm , ABDOMEN: Soft , no tenderness EXTREMITIES: Right lower extremity wounds has decreased in size with no slough or surrounding redness - Labs CBC & Chem 7: 06/23/23 07:30 06/23/23 07:30 Labs: Abnormal Lab Results - Last 24 Hours (Table) 06/23/23 06/23/23 Range/Units 07:30 07:30 WBC 16.1 H (3.8-10.6) k/uL RBC 2.46 L (3.80-5.40) m/uL Hgb 8.1 L (11.4-16.0) gm/dL Hct 26.1 L (34.0-46.0) % MCV 106.0 H (80.0-100.0) fL RDW 17.0 H (11.5-15.5) % Neutrophils # 13.4 H (1.3-7.7) k/uL Sodium 135 L (137-145) mmol/L Potassium 3.4 L (3.5-5.1) mmol/L Creatinine 3.29 H (0.52-1.04) mg/dL Calcium 7.9 L (8.4-10.2) mg/dL AST 43 H (14-36) U/L ALT 45 H (4-34) U/L Total Protein 5.2 L (6.3-8.2) g/dL Albumin 2.4 L (3.5-5.0) g/dL Assessment and Plan (1) Sepsis Current Visit: Yes Status: Acute Code(s): A41.9 - SEPSIS, UNSPECIFIED ORGANISM SNOMED Code(s): 61887844 (2) Gram-negative bacteremia Current Visit: Yes Status: Acute Code(s): R78.81 - BACTEREMIA SNOMED Code(s): 616274544872 (3) Urinary tract infection Current Visit: Yes Status: Acute Code(s): N39.0 - URINARY TRACT INFECTION, SITE NOT SPECIFIED SNOMED Code(s): 87478297 Plan: 11right lower extremity venous stasis ulcer and no cellulitis continue Local wound care to continue with Aquacel silver dressing followed by compression dressing will be changed to weekly 2patient did have E. coli bacteremia likely secondary urinary source, ultrasound of the kidney and bladder area with no evidence of any obstructive uropathy, Repeat blood cultures has been negative so far , Patient has received adequate antibiotic for underlying bacteremia Rocephin will be discontinued. 3patient with leukocytosis possibly multifactorial in this patient with concern for possible C. difficile also have significant excoriation of the sacral area may be contributing to it versus the left groin permacatheter we will continue oral vancomycin if any worsening white count we will be obtaining blood cultures from the permacatheter apply zinc skin protective cream and keep the area dry off the pressure discussed with the nursing staff Dictation was produced using [employer] software. please excuse any grammatical, word or spelling errors. Time with Patient: Less than 30
[2023-06-23 22:53] VITALS: TEMP 98.1
[2023-06-24 08:28] VITALS: BP 96/57; PULSE 88; RESP 18
[2023-06-24] MEDS: VANCOMYCIN 125 MG CAPSULE PO SCH ×2 (08:30→12:56)
[2023-06-24] MEDS: CHOLESTYRAMINE (WITH SUGAR) 4 GM PACKET PO SCH (08:30)
[2023-06-24] MEDS: NYSTATIN 100,000 UNIT/GM POWD 15 GM TOPICAL SCH (08:31)
[2023-06-24] MEDS: MONTELUKAST 10 MG TAB PO SCH (08:31)
[2023-06-24] MEDS ORDERED: TORSEMIDE 20 MG TAB PO SCH (09:00)
--- NOTE | 2023-06-24 10:32 | P.DS ---
Providers Date of admission: 06/11/23 01:30 Expected date of discharge: 06/24/23 Attending physician: Ten Guerrero Consults: 06/11/23 01:26 Consult Physician Routine Consulting Provider: Winston Almodovar Consult Reason/Comments: femurFx Do you want consulting provider notified?: Yes Consult Physician Routine Consulting Provider: Shirley Francis Consult Reason/Comments: donavon Do you want consulting provider notified?: Yes Consult Physician Urgent Consulting Provider: Bradly Almodovar Consult Reason/Comments: elevTrop Do you want consulting provider notified?: Yes 06/11/23 09:38 Consult Physician Urgent Consulting Provider: Caleb Babin Consult Reason/Comments: Cellulitis, pneumonia Do you want consulting provider notified?: Yes 06/13/23 14:01 Consult Physician Routine Consulting Provider: Braydon Miranda Consult Reason/Comments: permanent dialysis catheter Do you want consulting provider notified?: Yes 06/17/23 16:51 Consult Physician Routine Consulting Provider: Braydon Miranda Consult Reason/Comments: Permanent HD catheter, pt currently has Temporary femoral catheter Do you want consulting provider notified?: Yes Primary care physician: [facility] Course: Discharge diagnosis 1. Fall with rhabdomyolysis 2. Urinary tract infection completed treatment. 3. E. coli bacteremia. Completed treatment 4. Acute kidney injury secondary to ATN, started on hemodialysis today 5. Elevated liver liver enzymes 6. Left periprosthetic lateral condyle fracture of the distal femur. Orthopedic services are following conservative management at this time 7. Right lower extremity cellulitis 8. Elevated troponins per cardiology likely secondary to elevated CPK 9. Diarrhea. Possible clinical suspicion for C. diff patient started on oral vancomycin per ID Hospital course This is an 82-year-old female patient who originally presented to the hospital after she sustained a fall and was on the ground for quite some time before patient was able to get help. Patient apparently had diarrhea prior to fall and was not eating or drinking much. Patient has a past medical history of hypertension hyperlipidemia. Upon arrival patient was found to have a creatinine kinase level of 40,048 white blood cell 31.2 creatinine 2.66 bun 33 AST 694 and ALT 114. Patient was also positive for UTI which was followed by positive blood culture was also found to have a left para-prosthetic lateral condyle fracture of the distal femur. Orthopedic services, nephrology and infectious disease is following. I am resuming care of patient on 06/13/2023 Dr. Gee previously covering On 06/13/2023 patient alert and oriented 3 currently sitting up in bed. Per orthopedic services continue with conservative management. Awaiting lab work but creatinine significantly increased yesterday to 4.24 and 149. Nephrology services are following. Patient remains on IV antibiotics infectious disease services are following. Current vital signs temp 98.0, heart rate 73, respiratory rate 20, blood pressure 124/65 and pulse ox 95% on 2 L On 06/14/2023 patient was seen and examined on the telemetry floor she is alert and oriented 3 in no apparent distress, she is resting in bed, she is complaining of lower extremity pain, otherwise she denies any complaints at this time, she underwent her first session of hemodialysis today, there is no fever or chills no headache or dizziness no chest pain no shortness of breath no cough no nausea or vomiting no abdominal pain no diarrhea and no urinary symptoms. On 06/15/2023 patient alert and oriented 3 currently resting comfortably in bed. Patient was started on hemodialysis plans for additional hemodialysis today per nephrology services. Current vital signs temp 98.1, heart rate 73, respiratory 16, blood pressure 11/23/1973 with pulse ox 98% on 2 L. labwork currently pending. On 06/16/2023 patient was seen and examined on the medical floor she is alert and oriented 3 in no apparent distress there is no fever or chills no headache or dizziness no chest pain no shortness of breath no cough no nausea or vomiting no abdominal pain no diarrhea and no urinary symptoms. She underwent hemodialysis again today, will continue to follow closely, PT and OT consult. On 06/17/2023 patient is alert and oriented 3. Patient remains on IV Lasix. Left upper extremity having increased edema will order venous Doppler to rule out DVT. Creatinine improving to 3.93 bun 41. Current vital signs temp 98.7, heart rate 79, respiratory rate 15, blood pressure 140/70 with a pulse ox of 98% on 2 L On 06/18/2023 patient was seen and examined on the medical floor, she is alert and oriented 3 in no apparent distress, she is complaining of diarrhea, and complaining of generalized pain, otherwise she denies any complaints, there is no fever or chills no headache or dizziness no chest pain no shortness of breath no cough no nausea or vomiting no abdominal pain no blood in the stools no burning with urination no frequency or urgency and no hematuria. Patient has generalized weakness. Temperature today is 98.4 pulse 84 respiration 18 blood pressure 123/56 pulse ox is 92% on 2 L nasal cannula, labs from today are still pending. C. diff EIA yesterday was negative. On 06/19/2023 patient is alert and oriented 3 patient continued to have loose stools at this time will order C. diff PCR for more accurate testing. Patient underwent hemodialysis access placement yesterday. Patient denies chest pain or shortness breath. Patient denies nausea vomiting or diarrhea. Patient denies any urinary burning or frequency. On 06/20/2023 patient was seen and examined on the medical floor she is alert and oriented 3 in no apparent distress, she is still complaining of diarrhea, her white blood count remains elevated, she remains on hemodialysis, she is complaining of generalized weakness otherwise she denies any complaints at this time there is no fever or chills no headache or dizziness no chest pain no shortness of breath no cough no nausea or vomiting no abdominal pain and no urinary symptoms. On 06/21/2023 patient was seen and examined on the medical floor she is alert and oriented 3 in no apparent distress she reports some improvement in her diarrhea, white blood count is improving and kidney function is improving, she i s complaining of generalized weakness and pain in her right lower extremity otherwise she denies any complaints at this time. On 06/22/2023 patient's alert and oriented 3. Patient reports some improvement with loose stools. Patient remains on oral vancomycin. Labwork currently pending. Current vital signs temp 99.3, heart rate 88, respiratory rate 17, blood pressure 102/63 with pulse ox of 97% on 2 L On 06/23/2023 patient was seen and examined on the medical floor she is alert and oriented 3 in no apparent distress she is still complaining of significant diarrhea this morning she is complaining of lower extremity pain otherwise she denies any complaints there is no fever or chills no headache or dizziness no chest pain no shortness of breath no cough no nausea or vomiting no abdominal pain and no urinary symptoms. Patient has a pressure ulcer on her sacral area, recommendation per infectious disease is to use zinc oxide ointment. Also infectious disease recommending discontinuing IV Rocephin today. Patient is improving, possible transfer to [facility] tomorrow On 06/24/2023 patient's alert and oriented 3 currently getting hemodialysis. Patient to be DC'd to [facility] today. Patient to continue 10 day course of oral vancomycin for suspicion of C. diff. Current vital signs temp 98.1, heart rate 88, respiratory rate 18, blood pressure 96/57 pulse ox of 92% on room air. Patient has completed course of antibiotics for bacteremia repeat blood culture negative. White blood cell trending down. Patient Condition at Discharge: Stable Plan - Discharge Summary Discharge Rx Participant: No New Discharge Prescriptions: New Nystatin 100,000 Unit/gm Powd [Mycostatin Powder] 1 applic TOPICAL BID each Midodrine [ProAmatine] 5 mg PO DAILY PRN tab PRN Reason: dialysis Darbepoetin Ramon [Aranesp] 40 mcg SQ Q7D each Torsemide [Demadex] 40 mg PO DAILY tab Cholestyramine (with Sugar) [Questran Packet] 4 gm PO BID@1000,1800 packet Vancomycin 250 mg PO QID 7 Days #46 cap Continue Montelukast [Singulair] 10 mg PO DAILY Ergocalciferol (Vitamin D2) [Drisdol (50,000 Iu)] 1,250 mcg PO THAPA Discontinued hydrALAZINE HCL 25 mg PO BID atenoloL 25 mg PO BID HYDROcodone/APAP 10-325MG [Clayhole 10-325] 1 tab PO Q8HR PRN PRN Reason: Pain Simvastatin [Zocor] 20 mg PO HS Potassium Chloride [K-Tab ER] 10 meq PO DAILY FLUoxetine HCL [PROzac] 10 mg PO DAILY Discharge Medication List Montelukast [Singulair] 10 mg PO DAILY 08/18/19 [History] Ergocalciferol (Vitamin D2) [Drisdol (50,000 Iu)] 1,250 mcg PO THAPA 04/18/23 [History] Cholestyramine (with Sugar) [Questran Packet] 4 gm PO BID@1000,1800 packet 06/24/23 [Rx] Darbepoetin Ramon [Aranesp] 40 mcg SQ Q7D each 06/24/23 [Rx] Midodrine [ProAmatine] 5 mg PO DAILY PRN tab 06/24/23 [Rx] Nystatin 100,000 Unit/gm Powd [Mycostatin Powder] 1 applic TOPICAL BID each 06/24/23 [Rx] Torsemide [Demadex] 40 mg PO DAILY tab 06/24/23 [Rx] Vancomycin 250 mg PO QID 7 Days #46 cap 06/24/23 [Rx] Follow up Appointment(s)/Referral(s[facility] - 06/27/23 2:30 pm (Please arrive a half hour early on Tuesday.) Ten Guerrero MD [Primary Care Provider] - 1-2 days Winston Almodovar MD [STAFF PHYSICIAN] - 3 Weeks Activity/Diet/Wound Care/Special Instructions: Orthopedic Discharge Instructions: 1. Utilize hinged knee brace, 0-30 degrees 2. Partial weightbearing with walker 3. Follow up at [facility] in [address] Almodovar Discharge Disposition: TRANSFER TO SNF/ECF
--- NOTE | 2023-06-24 11:07 | P.PN ---
Subjective Patient is seen in follow-up for acute kidney injury, hemodialysis dependent. Dialysis access changed 06/18/2023. Tolerating dialysis well. Denies chest pain or shortness of breath. Urine output remains low. Hemodynamically stable. Vital signs are stable. General: No acute distress. HEENT: Head exam is unremarkable. LUNGS: No audible rhonchi or wheezes. HEART: Rate and Rhythm are regular. ABDOMEN: Nontender. EXTREMITITES: 1+ edema. Objective - Vital Signs Vital signs: Vital Signs Temp 98.1 F 06/24/23 08:00 Pulse 88 06/24/23 08:00 Resp 18 06/24/23 08:00 BP 96/57 06/24/23 08:00 Pulse Ox 92 L 06/24/23 08:00 FiO2 21 06/23/23 01:12 Intake & Output 06/23/23 06/24/23 06/24/23 18:59 06:59 18:59 Intake Total 290 540 236 Output Total 175 Balance 115 540 236 Weight 81 kg Intake: Intake, IV Titration 50 Amount cefTRIAXone 2 gm In 50 Sodium Chloride 0.9% 50 ml @ 100 mls/hr IVPB Q24HR [facility] Rx#:[id number] Oral 240 540 236 Output: Urine 175 Other: Voiding Method Indwelling Catheter Indwelling Catheter Indwelling Catheter # Bowel Movements 1 - Labs CBC & Chem 7: 06/23/23 07:30 06/23/23 07:30 Assessment and Plan Plan: Assessment: 1. Acute kidney injury secondary to ATN secondary to rhabdomyolysis and severe sepsis. Urine output remains low. No hydronephrosis noted on kidney ultrasound. Started on hemodialysis 06/14/2023. Has a tunneled left femoral catheter. Creatinine 0.8 in March 2023. 2. Rhabdomyolysis secondary to fall. CK levels trending down. 3. Volume overload. Improving with ultrafiltration. 4. Severe sepsis secondary to E. coli UTI and bacteremia on antibiotics. 5. Hypocalcemia. Corrected calcium now normal. Vitamin D level 10.0. On Drisdol. On PhosLo. Tums discontinued. 6. Hyperphosphatemia secondary to acute kidney injury maintained on PhosLo. Phosphorus level 2.7 dated 06/21/2023. PhosLo discontinued. 7. Anemia. Iron deficiency noted - s/p IV iron. On Aranesp. Plan: Currently seen while undergoing hemodialysis. She will be maintained on Tuesday schedule. Avoid nephrotoxins. Monitor for renal recovery. Maintain torsemide.
== END 2023-06-24 13:38 | DRG 673 ==
LOC: EC 20:09 → 3SCARD 06-11 01:30
PROVIDERS: ADMIT Internal Medicine; ATTEND Internal Medicine
PROC: 02HV33Z Insertion of Infusion Device into Superior Vena Cava, Percutaneous Approach (ICD-10-PCS; 2023-06-14)
PROC: 5A1D70Z Performance of Urinary Filtration, Intermittent, Less than 6 Hours Per Day (ICD-10-PCS; 2023-06-14)
PROC: 0JH63XZ Insertion of Tunneled Vascular Access Device into Chest Subcutaneous Tissue and Fascia, Percutaneous Approach (ICD-10-PCS; principal; 2023-06-21)
PROC: 02HV33Z Insertion of Infusion Device into Superior Vena Cava, Percutaneous Approach (ICD-10-PCS; 2023-06-21)
DX: N17.0 Acute kidney failure with tubular necrosis (principal); A41.51 Sepsis due to Escherichia coli [E. coli]; R65.20 Severe sepsis without septic shock; J18.9 Pneumonia, unspecified organism; S72.422A Displaced fracture of lateral condyle of left femur, initial encounter for closed fracture; L03.115 Cellulitis of right lower limb; I13.11 Hypertensive heart and chronic kidney disease without heart failure, with stage 5 chronic kidney disease, or end stage renal disease; M97.12XA Periprosthetic fracture around internal prosthetic left knee joint, initial encounter; E87.20 Acidosis, unspecified; N39.0 Urinary tract infection, site not specified; T79.6XXA Traumatic ischemia of muscle, initial encounter; N18.6 End stage renal disease; I83.019 Varicose veins of right lower extremity with ulcer of unspecified site; Z99.2 Dependence on renal dialysis; L89.159 Pressure ulcer of sacral region, unspecified stage; E83.51 Hypocalcemia; E83.39 Other disorders of phosphorus metabolism; D63.1 Anemia in chronic kidney disease; E66.9 Obesity, unspecified; Z68.32 Body mass index [BMI] 32.0-32.9, adult; M85.80 Other specified disorders of bone density and structure, unspecified site; E87.70 Fluid overload, unspecified; M25.462 Effusion, left knee; W18.30XA Fall on same level, unspecified, initial encounter; E78.5 Hyperlipidemia, unspecified; K21.9 Gastro-esophageal reflux disease without esophagitis; M19.90 Unspecified osteoarthritis, unspecified site; G89.29 Other chronic pain; M54.2 Cervicalgia; M54.50 Low back pain, unspecified; M25.512 Pain in left shoulder; M25.511 Pain in right shoulder; R77.8 Other specified abnormalities of plasma proteins; B96.89 Other specified bacterial agents as the cause of diseases classified elsewhere; R19.7 Diarrhea, unspecified; Z96.653 Presence of artificial knee joint, bilateral; Y92.009 Unspecified place in unspecified non-institutional (private) residence as the place of occurrence of the external cause; Z79.899 Other long term (current) drug therapy; Z91.048 Other nonmedicinal substance allergy status; Z88.2 Allergy status to sulfonamides; Z87.19 Personal history of other diseases of the digestive system
CPT/HCPCS: 36410; 36415; 36556; 36558; 71045; 73502; 76700; 76857; 76937; 77001; 80048; 80053; 81001; 82306; 82550; 82553; 82728; 83540; 83550; 83605; 83735; 83880; 84100; 84132; 84443; 84484; 85025; 85610; 85730; 86140; 86704; 86706; 87040; 87077; 87086; 87186; 87324; 87340; 87493; 90935; 93005; 93306; 94760; 96361; 96365; 96375; 99291

== ENCOUNTER 2023-06-28 11:16 | Emergency (ER) | payer MEDICARE, OTHER ==
[2023-06-28 11:32] VITALS: TEMP 98.2
[2023-06-28] MEDS ORDERED: ALTEPLASE 2 MG VIAL (CATHFLO) IV STA (11:59)
[2023-06-28 12:10] LABS: Anisocytosis Slight; Basophils % (A) 0 %; Eosinophils # (A) 0.3 k/uL (0-0.7); Eosinophils % (A) 3 %; HCT 25.4 % (34.0-46.0); Hypochromasia Marked; Lymphocytes # (A) 1.2 k/uL (1.0-4.8); Lymphocytes % (A) 13 %; MCH 32.7 pg (25.0-35.0); MCHC 31.5 g/dL (31.0-37.0); MCV 103.7 fL (80.0-100.0); Macrocytosis Moderate; Monocytes # (A) 0.7 k/uL (0-1.0); Monocytes % (A) 7 %; Neutrophils # (A) 7.1 k/uL (1.3-7.7); Neutrophils % (A) 75 %; Platelet Count 218 k/uL (150-450); RBC 2.45 m/uL (3.80-5.40); RDW 16.1 % (11.5-15.5); WBC 9.5 k/uL (3.8-10.6)
[2023-06-28 12:24] LABS: ALT 27 U/L (4-34); AST 30 U/L (14-36); African American GFR (CKD) 15 (>60 ml/min/1.73 sqM); Albumin 2.8 g/dL (3.5-5.0); Alkaline Phosphatase 70 U/L (38-126); Anion Gap 8 mmol/L; Blood Urea Nitrogen 30 mg/dL (7-17); Calcium 8.1 mg/dL (8.4-10.2); Carbon Dioxide 23 mmol/L (22-30); Chloride 106 mmol/L (98-107); Glucose 96 mg/dL (74-99); Magnesium 1.5 mg/dL (1.6-2.3); Non-African American GFR(CKD) 13 (>60 ml/min/1.73 sqM); Potassium 4.3 mmol/L (3.5-5.1); Sodium 137 mmol/L (137-145); Total Bilirubin 0.5 mg/dL (0.2-1.3); Total Protein 5.4 g/dL (6.3-8.2)
[2023-06-28 12:30] LABS: Prothrombin Time 10.4 sec (9.0-12.0)
[2023-06-28 13:21] LABS: Partial Thromboplastin Time 21.3 sec (22.0-30.0)
--- NOTE | 2023-06-28 13:42 | ED ---
General Adult HPI - General Source: patient, EMS, RN notes reviewed, old records reviewed Mode of arrival: EMS Limitations: no limitations <John Bermudez - Last Filed: 06/28/23 13:41> - General Source: patient, EMS, RN notes reviewed, old records reviewed Mode of arrival: EMS Limitations: no limitations - History of Present Illness -: hour(s) Location: head Radiation: non-radiation Severity scale (1-10): 3 Consistency: constant Improves with: none Worsens with: none Associated Symptoms: denies other symptoms Treatments Prior to Arrival: none <Bautista Montanez - Last Filed: 07/02/23 22:14> - General Chief complaint: Recheck/Abnormal Lab/Rx Stated complaint: Clogged Port, L Leg Time Seen by Provider: 06/28/23 11:43 - History of Present Illness Initial comments: 82-year-old female presents emergency from chief complaint of clogged moral left catheter. Patient states that she was recently discharged she had dialysis last Tuesday they attempted to give her dialysis at [facility] yesterday but was unsuccessful secondary to her catheter been clogged. Patient denies any other specific complaint other than buttocks pain from a sacral sore. Patient denies any chest pain, shortness of breath. (John Bermudez) 82 female presenting for recheck of left femoral dialysis catheter. Patient did have dialysis yesterday but was only mildly successful is catheter does appear to be nonfunctioning sent to the emergency department for evaluation of catheter today (Bautista Montanez) - Related Data Home Medications Medication Instructions Recorded Confirmed Montelukast [Singulair] 10 mg PO HS@199908/18/19 06/28/23 Ergocalciferol (Vitamin D2) 1,250 mcg PO THAPA 04/18/23 06/28/23 [Drisdol (50,000 Iu)] Acetaminophen [Tylenol] 650 mg PO Q6H PRN 06/28/23 06/28/23 Cholestyramine (with Sugar) 4 gm PO BID 06/28/23 06/28/23 [Questran Packet] HYDROcodone/APAP 7.5-325MG [Mcclure 1 tab PO Q6H PRN 06/28/23 06/28/23 7.5-325] Midodrine [ProAmatine] 5 mg PO DAILY PRN 06/28/23 06/28/23 Vancomycin HCl 500 mg PO QID@00,06,12,18 06/28/23 06/28/23 Previous Rx's Medication Instructions Recorded Nystatin 100,000 Unit/gm Powd 1 applic TOPICAL BID each 06/24/23 [Mycostatin Powder] Torsemide [Demadex] 40 mg PO DAILY tab 06/24/23 Allergies Allergy/AdvReac Type Severity Reaction Status Date / Time adhesive tape Allergy Unknown Rash/Hives Verified 06/28/23 18:12 Sulfa (Sulfonamide Allergy Rash/Hives Verified 06/28/23 18:12 Antibiotics) Review of Systems ROS Other: All systems not noted in ROS Statement are negative. <John Bermudez - Last Filed: 06/28/23 13:41> ROS Other: All systems not noted in ROS Statement are negative. <Bautista Montaenz - Last Filed: 07/02/23 22:14> ROS Statement: Those systems with pertinent positive or pertinent negative responses have been documented in the HPI. Past Medical History Past Medical History: GERD/Reflux, Hyperlipidemia, Hypertension, Osteoarthritis (OA), Renal Disease, Skin Disorder Additional Past Medical History / Comment(s): chronic low back/cervical and bilateral shoulder pain, benign colon polyps/diverticular disease, bilateral lower extremity cellulitis but R leg much more often, UTIs, polynephritis, hiatal hernia many years ago.dialysis History of Any Multi-Drug Resistant Organisms: None Reported Past Surgical History: Appendectomy, Cholecystectomy, Joint Replacement, Or thopedic Surgery, Tubal Ligation Additional Past Surgical History / Comment(s): Bilateral total knee arthroplasties, pain clinic procedures, colonoscopies/benign polypectomies, bilateral cataract removals/lens implants, PICC line. Past Anesthesia/Blood Transfusion Reactions: No Reported Reaction Past Psychological History: No Psychological Hx Reported Smoking Status: Never smoker Past Alcohol Use History: Rare Past Drug Use History: None Reported - Past Family History Mother Family Medical History: Cancer Additional Family Medical History / Comment(s): BREAST CANCER. at 28 years old Father Family Medical History: Cancer Additional Family Medical History / Comment(s): LIVER CANCER/HEART PROBLEMS. Son(s) Family Medical History: Cancer Additional Family Medical History / Comment(s): MULTIPLE MYELOMA/bone cancer- PASSED 2015. <John Bermudez - Last Filed: 06/28/23 13:41> General Exam Limitations: no limitations General appearance: alert, in no apparent distress Head exam: Present: atraumatic, normocephalic, normal inspection Eye exam: Present: normal appearance, PERRL, EOMI. Absent: scleral icterus, conjunctival injection, periorbital swelling ENT exam: Present: normal exam, normal oropharynx, mucous membranes moist Neck exam: Present: normal inspection, full ROM. Absent: tenderness, meningismus, lymphadenopathy Respiratory exam: Present: normal lung sounds bilaterally. Absent: respiratory distress, wheezes, rales, rhonchi, stridor Cardiovascular Exam: Present: regular rate, normal rhythm, normal heart sounds. Absent: systolic murmur, diastolic murmur, rubs, gallop, clicks GI/Abdominal exam: Present: soft, normal bowel sounds. Absent: distended, tenderness, guarding, rebound, rigid <John Bermudez - Last Filed: 06/28/23 13:41> General appearance: alert, in no apparent distress Head exam: Present: atraumatic, normocephalic, normal inspection Eye exam: Present: normal appearance, PERRL, EOMI. Absent: scleral icterus, conjunctival injection, periorbital swelling ENT exam: Present: normal exam, mucous membranes moist Neck exam: Present: normal inspection. Absent: tenderness, meningismus, lymphadenopathy Respiratory exam: Present: normal lung sounds bilaterally. Absent: respiratory distress, wheezes, rales, rhonchi, stridor Cardiovascular Exam: Present: regular rate, normal rhythm, normal heart sounds. Absent: systolic murmur, diastolic murmur, rubs, gallop, clicks GI/Abdominal exam: Present: soft, normal bowel sounds. Absent: distended, tenderness, guarding, rebound, rigid Extremities exam: Present: normal inspection, full ROM, normal capillary refill. Absent: tenderness, pedal edema, joint swelling, calf tenderness Back exam: Present: normal inspection Neurological exam: Present: alert, oriented X3, CN II-XII intact Psychiatric exam: Present: normal affect, normal mood Skin exam: Present: warm, dry, intact, normal color. Absent: rash <Bautista Montanez - Last Filed: 07/02/23 22:14> Course <Bautista Montanez - Last Filed: 07/02/23 22:14> Vital Signs 06/28/23 06/28/23 06/28/23 11:28 13:00 14:15 Temperature 98.2 F Pulse Rate 89 84 Respiratory 16 20 16 Rate Blood Pressure 109/53 90/41 O2 Sat by Pulse 95 95 Oximetry 06/28/23 06/28/23 06/28/23 16:00 17:00 19:33 Temperature Pulse Rate 68 68 111 H Respiratory 16 16 18 Rate Blood Pressure 135/68 168/68 122/55 O2 Sat by Pulse 98 98 96 Oximetry - Reevaluation(s) Reevaluation #1: 06/28/23 20:31 Medical record is reviewed (Bautista Montanez) Reevaluation #2: 06/28/23 20:31 Patient's going catheter was flushed successfully (Bautista Montanez) Reevaluation #3: Issue informed results can be discharged home, questions answered (Bautista Montanez) Reevaluation #4: Was pt. sent in by a medical professional or institution (, PA, DIRECTOR OF ACQUISITIONS, urgent care, hospital, or fdc...) When possible be specific @ -no Did you speak to anyone other than the patient for history (EMS, parent, family, police, friend...)? What history was obtained from this source @ -no Did you review nursing and triage notes (agree or disagree)? Why? @ -agree Are old charts reviewed (outside hosp., previous admission, EMS record, old EKG, old radiological studies, urgent care reports/EKG's, fdc records)? Report findings @ -yes Differential Diagnosis (chest pain, altered mental status, abdominal pain women, abdominal pain men, vaginal bleeding, weakness, fever, dyspnea, syncope, headache, dizziness, GI bleed, back pain, seizure, CVA, palpatations, mental health, musculoskeletal)? @ -prior EKG interpreted by me (3pts min.). @ -no X-rays interpreted by me (1pt min.). @ -no CT interpreted by me (1pt min.). @ -no U/S interpreted by me (1pt. min.). @ -no What testing was considered but not performed or refused? (CT, X-rays, U/S, labs)? Why? @ -none What meds were considered but not given or refused? Why? @ -none Did you discuss the management of the patient with other professionals (professionals i.e. , PA, DIRECTOR OF ACQUISITIONS, lab, RT, psych nurse, director social welfare, health advocate, teacher, life science technical officer, trimming caser)? Give summary @ -no Was smoking cessation discussed for >3mins.? @ -no Was critical care preformed (if so, how long)? @ -no Were there social determinants of health that impacted care today? How? (Homelessness, low income, unemployed, alcoholism, drug addiction, transportation, low edu. Level, literacy, decrease access to med. care, penitentiary, rehab)? @ -none Was there de-escalation of care discussed even if they declined (Discuss DNR or withdrawal of care, Hospice)? DNR status @ -no What co-morbidities impacted this encounter? (DM, HTN, Smoking, COPD, CAD, Cancer, CVA, ARF, Chemo, Hep., AIDS, mental health diagnosis, sleep apnea, morbid obesity)? @ -none Was patient admitted / discharged? Hospital course, mention meds given and route, prescriptions, significant lab abnormalities, going to OR and other pertinent info. @ - 82 female to the ER today for evaluation, patient has resolution of the dialysis catheter is not working, her dialysis catheter works Good now, patient can be discharged home Discharge Undiagnosed new problem with uncertain prognosis? @ -no Drug Therapy requiring intensive monitoring for toxicity (Heparin, Nitro, Insulin, Cardizem)? @ -no Were any procedures done? @ -no Diagnosis/symptom? @ -Urinary tract infection with indwelling Singh, weakness Acute, or Chronic, or Acute on Chronic? @ -Acute Uncomplicated (without systemic symptoms) or Complicated (systemic symptoms)? @ -Complicated Side effects of treatment? @ -no Exacerbation, Progression, or Severe Exacerbation? @ -exacerbation Poses a threat to life or bodily function? How? (Chest pain, USA, MS, pneumonia, PE, COPD, DKA, ARF, appy, cholecystitis, CVA, Diverticulitis, Homicidal, Suicidal, threat to staff... and all critical care pts) @ -yes patient unable to get dialysis of catheter is not functioning (Bautista Montanez) Medical Decision Making - Lab Data Result diagrams: 06/28/23 12:00 06/28/23 12:00 <John Bermudez - Last Filed: 06/28/23 13:41> - Lab Data Result diagrams: 06/28/23 12:00 06/28/23 12:00 <Bautista Montanez - Last Filed: 07/02/23 22:14> - Medical Decision Making 82 female to the ER today for evaluation, patient has resolution of the dialysis catheter is not working, her dialysis catheter works Good now, patient can be discharged home (Bautista Montanez) - Lab Data Lab Results 06/28/23 06/28/23 06/28/23 Range/Units 12:00 12:00 12:00 WBC 9.5 (3.8-10.6) k/uL RBC 2.45 L (3.80-5.40) m/uL Hgb 8.0 L (11.4-16.0) gm/dL Hct 25.4 L (34.0-46.0) % MCV 103.7 H (80.0-100.0) fL MCH 32.7 (25.0-35.0) pg MCHC 31.5 (31.0-37.0) g/dL RDW 16.1 H (11.5-15.5) % Plt Count 218 (150-450) k/uL MPV 8.0 Neutrophils % 75 % Lymphocytes % 13 % Monocytes % 7 % Eosinophils % 3 % Basophils % 0 % Neutrophils # 7.1 (1.3-7.7) k/uL Lymphocytes # 1.2 (1.0-4.8) k/uL Monocytes # 0.7 (0-1.0) k/uL Eosinophils # 0.3 (0-0.7) k/uL Basophils # 0.0 (0-0.2) k/uL Hypochromasia Marked Anisocytosis Slight Macrocytosis Moderate PT 10.4 (9.0-12.0) sec INR 1.0 (<1.2) APTT 21.3 L (22.0-30.0) sec Sodium 137 (137-145) mmol/L Potassium 4.3 (3.5-5.1) mmol/L Chloride 106 (98-107) mmol/L Carbon Dioxide 23 (22-30) mmol/L Anion Gap 8 mmol/L BUN 30 H (7-17) mg/dL Creatinine 3.10 H (0.52-1.04) mg/dL Est GFR (CKD-EPI)AfAm 15 (>60 ml/min/1.73 sqM) Est GFR (CKD-EPI)NonAf 13 (>60 ml/min/1.73 sqM) Glucose 96 (74-99) mg/dL Calcium 8.1 L (8.4-10.2) mg/dL Magnesium 1.5 L (1.6-2.3) mg/dL Total Bilirubin 0.5 (0.2-1.3) mg/dL AST 30 (14-36) U/L ALT 27 (4-34) U/L Alkaline Phosphatase 70 (38-126) U/L Total Protein 5.4 L (6.3-8.2) g/dL Albumin 2.8 L (3.5-5.0) g/dL Disposition <John Bermudez - Last Filed: 06/28/23 13:41> Is patient prescribed a controlled substance at d/c from ED?: No Time of Disposition: 18:30 <Bautista Montanez - Last Filed: 07/02/23 22:14> Clinical Impression: Hemodialysis catheter malfunction Disposition: HOME SELF-CARE Condition: Good Instructions (If sedation given, give patient instructions): Tunneled Central Lines (DC) Referrals: Jazmine Martinez DO [Primary Care Provider] - 1-2 days
[2023-06-28 19:35] VITALS: BP 122/55; PULSE 111; RESP 18
== END 2023-06-28 20:00 | disposition home or self-care (01) ==
LOC: EC 11:16
DX: T82.49XA Other complication of vascular dialysis catheter, initial encounter (principal); N39.0 Urinary tract infection, site not specified; I10 Essential (primary) hypertension; Z88.2 Allergy status to sulfonamides; Z91.09 Other allergy status, other than to drugs and biological substances; Z99.2 Dependence on renal dialysis; Z90.49 Acquired absence of other specified parts of digestive tract; Z79.899 Other long term (current) drug therapy
CPT/HCPCS: 99284; 37195; 36415; 80053; 83735; 85025; 85610; 85730; J2997

== ENCOUNTER 2023-07-26 23:14 | Inpatient (IN) | payer MEDICARE, OTHER ==
[2023-07-27 00:14] LABS: Basophils % (A) 0 %; Eosinophils # (A) 0.1 k/uL (0-0.7); Eosinophils % (A) 1 %; HGB 10.2 gm/dL (11.4-16.0); Lymphocytes # (A) 0.6 k/uL (1.0-4.8); Lymphocytes % (A) 3 %; MCH 32.6 pg (25.0-35.0); MCV 101.9 fL (80.0-100.0); Macrocytosis Slight; Mean Platelet Volume 8.1; Monocytes # (A) 0.4 k/uL (0-1.0); Monocytes % (A) 2 %; Neutrophils # (A) 20.3 k/uL (1.3-7.7); Neutrophils % (A) 95 %; Platelet Count 372 k/uL (150-450); RBC 3.14 m/uL (3.80-5.40); RDW 14.6 % (11.5-15.5); WBC 21.4 k/uL (3.8-10.6)
[2023-07-27] MEDS ORDERED: SODIUM CHLORIDE 0.9% 500 ML 500 ML IV ONE (00:16)
[2023-07-27] MEDS ORDERED: IPRATROPIUM-ALBUTEROL 3 ML NEB INHALATION STA (00:16)
[2023-07-27 00:22] LABS: ALT 15 U/L (4-34); AST 29 U/L (14-36); African American GFR (CKD) 19 (>60 ml/min/1.73 sqM); Albumin 3.2 g/dL (3.5-5.0); Alkaline Phosphatase 107 U/L (38-126); Anion Gap 17 mmol/L; Blood Urea Nitrogen 54 mg/dL (7-17); Carbon Dioxide 17 mmol/L (22-30); Chloride 97 mmol/L (98-107); Glucose 183 mg/dL (74-99); Magnesium 1.3 mg/dL (1.6-2.3); Non-African American GFR(CKD) 16 (>60 ml/min/1.73 sqM); Potassium 4.3 mmol/L (3.5-5.1); Sodium 131 mmol/L (137-145); Total Bilirubin 0.4 mg/dL (0.2-1.3)
[2023-07-27 00:41] LABS: Partial Thromboplastin Time 24.2 sec (22.0-30.0); Prothrombin Time 10.9 sec (9.0-12.0)
[2023-07-27] MEDS ORDERED: DILTIAZEM DRIP BOLUS FROM BAG 1 MG SOLN IV ONE (01:02)
[2023-07-27] MEDS ORDERED: DILTIAZEM 125 MG in SODIUM CHLORIDE 0.9% 100 ML IV SCH (01:15)
--- NOTE | 2023-07-27 01:17 | XR ---
EXAM: XR Chest, 1 View CLINICAL HISTORY: ITS.REASON XR Reason: dysrhythmia TECHNIQUE: Frontal view of the chest. COMPARISON: 06/15/2023 FINDINGS: Lungs: Vascular congestion. Pleural space: Unremarkable. No pneumothorax. No pleural effusions. Heart: Unremarkable. No cardiomegaly. Mediastinum: Unremarkable. Bones/joints: No acute osseous abnormalities. IMPRESSION: Vascular congestion.
[2023-07-27] MEDS ORDERED: MAGNESIUM SULFATE-D5W PMX 1 GM in DEXTROSE/WATER 1 100ML.BAG IVPB ONE (01:26)
[2023-07-27] MEDS ORDERED: HYDROmorphone 0.5 MG/0.5 ML SYRINGE ONE ×2 (01:28)
[2023-07-27] MEDS ORDERED: HYDROmorphone 0.5 MG/0.5 ML SYRINGE IVP STA ×2 (01:28→03:12)
[2023-07-27] MEDS ORDERED: VANCOMYCIN IV PER PHARMACY 1 EACH MISC MISCELLANE PRN (03:18)
[2023-07-27] MEDS ORDERED: VANCOMYCIN 1,250 MG in SODIUM CHLORIDE 0.9% 250 ML IVPB ONE (04:00)
[2023-07-27] MEDS ORDERED: ACETAMINOPHEN TAB 325 MG TAB PO PRN (04:03)
[2023-07-27] MEDS ORDERED: NALOXONE 0.4 MG/ML 1 ML VIAL IV PRN (04:03)
--- NOTE | 2023-07-27 04:03 | ED ---
General Adult HPI - General Chief complaint: Allergic Reaction Stated complaint: Allergic Reaction Time Seen by Provider: 07/26/23 23:33 Source: patient, RN notes reviewed, old records reviewed Mode of arrival: ambulatory - History of Present Illness Initial comments: 82-year-old female presenting from the detention for evaluation of tachycardia and rash. There was suspected ALLERGIC reaction. Patient was given Benadryl and Solu-Medrol during transport by paramedics. Patient has left femoral dialysis port. She is apparently on antibiotics currently. No history of atrial fibrillation or atrial flutter. Patient denies fever. She denies abdominal pain. She denies chest pain. - Related Data Home Medications Medication Instructions Recorded Confirmed Montelukast [Singulair] 10 mg PO HS@199908/18/19 06/28/23 Ergocalciferol (Vitamin D2) 1,250 mcg PO THAPA 04/18/23 06/28/23 [Drisdol (50,000 Iu)] Acetaminophen [Tylenol] 650 mg PO Q6H PRN 06/28/23 06/28/23 Cholestyramine (with Sugar) 4 gm PO BID 06/28/23 06/28/23 [Questran Packet] HYDROcodone/APAP 7.5-325MG [[place] 1 tab PO Q6H PRN 06/28/23 06/28/23 7.5-325] Midodrine [ProAmatine] 5 mg PO DAILY PRN 06/28/23 06/28/23 Vancomycin HCl 500 mg PO QID@00,06,12,18 06/28/23 06/28/23 Previous Rx's Medication Instructions Recorded Nystatin 100,000 Unit/gm Powd 1 applic TOPICAL BID each 06/24/23 [Mycostatin Powder] Torsemide [Demadex] 40 mg PO DAILY tab 06/24/23 Allergies Allergy/AdvReac Type Severity Reaction Status Date / Time adhesive tape Allergy Unknown Rash/Hives Verified 07/26/23 23:31 Sulfa (Sulfonamide Allergy Rash/Hives Verified 07/26/23 23:31 Antibiotics) Review of Systems ROS Statement: Those systems with pertinent positive or pertinent negative responses have been documented in the HPI. ROS Other: All systems not noted in ROS Statement are negative. Past Medical History Past Medical History: GERD/Reflux, Hyperlipidemia, Hypertension, Osteoarthritis (OA), Renal Disease, Skin Disorder Additional Past Medical History / Comment(s): chronic low back/cervical and bilateral shoulder pain, benign colon polyps/diverticular disease, bilateral lower extremity cellulitis but R leg much more often, UTIs, polynephritis, hiata l hernia many years ago.dialysis History of Any Multi-Drug Resistant Organisms: None Reported Past Surgical History: Appendectomy, Cholecystectomy, Joint Replacement, Orthopedic Surgery, Tubal Ligation Additional Past Surgical History / Comment(s): Bilateral total knee arthroplasties, pain clinic procedures, colonoscopies/benign polypectomies, bilateral cataract removals/lens implants, PICC line. Past Anesthesia/Blood Transfusion Reactions: No Reported Reaction Past Psychological History: No Psychological Hx Reported Smoking Status: Never smoker Past Alcohol Use History: Rare Past Drug Use History: None Reported - Past Family History Mother Family Medical History: Cancer Additional Family Medical History / Comment(s): BREAST CANCER. at 28 years old Father Family Medical History: Cancer Additional Family Medical History / Comment(s): LIVER CANCER/HEART PROBLEMS. Son(s) Family Medical History: Cancer Additional Family Medical History / Comment(s): MULTIPLE MYELOMA/bone cancer- PASSED 2015. General Exam General appearance: alert, in no apparent distress Head exam: Present: atraumatic, normocephalic Eye exam: Present: normal appearance, PERRL ENT exam: Present: mucous membranes dry Neck exam: Present: normal inspection. Absent: tenderness, meningismus Respiratory exam: Present: decreased breath sounds. Absent: respiratory distress Cardiovascular Exam: Present: normal rhythm, tachycardia GI/Abdominal exam: Present: soft. Absent: distended, tenderness, guarding Extremities exam: Present: pedal edema Neurological exam: Present: alert Skin exam: Present: warm, dry, intact Course Vital Signs 07/26/23 07/27/23 23:25 02:21 Temperature 98.6 F 99.1 F Pulse Rate 142 H 134 H Respiratory 19 21 Rate Blood Pressure 138/78 131/80 O2 Sat by Pulse 93 L 93 L Oximetry Medical Decision Making - Medical Decision Making Was pt. sent in by a medical professional or institution (, PA, LE[employer], urgent care, hospital, or detention...) When possible be specific @ -No Did you speak to anyone other than the patient for history (EMS, parent, family, police, friend...)? What history was obtained from this source @ -[Paramedics Did you review nursing and triage notes (agree or disagree)? Why? @ -I reviewed and agree with nursing and triage notes Were old charts reviewed (outside hosp., previous admission, EMS record, old EKG, old radiological studies, urgent care reports/EKG's, detention records)? Report findings @ -No old charts were reviewed Differential Diagnosis (chest pain, altered mental status, abdominal pain women, abdominal pain men, vaginal bleeding, weakness, fever, dyspnea, syncope, headache, dizziness, GI bleed, back pain, seizure, CVA, palpatations, mental health, musculoskeletal)? @ -[Differential Palpitations Ventricular arrhythmias, atrial arrhythmias, myocardial infarction, anemia, thyrotoxicosis, electrolyte imbalance, hypokalemia, pulmonary embolism, pulmonary disease, drugs, alcohol, anxiety, stress.... This is not meant to be an all-inclusive list. EKG interpreted by me (3pts min.). @ -Narrow complex rhythm, suspect atrial flutter with 2-1 AV conduction, rate of 144, QRS duration 94, QTC 424, no ST segment elevation. X-rays interpreted by me (1pt min.). @ -Chest x-ray mild pulmonary vascular congestion and small left pleural effusion CT interpreted by me (1pt min.). @ -None done U/S interpreted by me (1pt. min.). @ -None done What testing was considered but not performed or refused? (CT, X-rays, U/S, labs)? Why? @ -None What meds were considered but not given or refused? Why? @ -None Did you discuss the management of the patient with other professionals (professionals i.e. , PA, [employer], lab, RT, psych nurse, dialysis social worker, refrigerator repairman, teacher, custom protection officer, spring encaser)? Give summary @ -[Dr. Guerrero Was smoking cessation discussed for >3mins.? @ -No Was critical care preformed (if so, how long)? @ -yes 35 min Were there social determinants of health that impacted care today? How? (Homelessness, low income, unemployed, alcoholism, drug addiction, transportati on, low edu. Level, literacy, decrease access to med. care, group home, rehab)? @ -No Was there de-escalation of care discussed even if they declined (Discuss DNR or withdrawal of care, Hospice)? DNR status @ -No What co-morbidities impacted this encounter? (DM, HTN, Smoking, COPD, CAD, Cancer, CVA, ARF, Chemo, Hep., AIDS, mental health diagnosis, sleep apnea, morbid obesity)? @ -[End-stage renal disease, hypertension, diabetes Was patient admitted / discharged? Hospital course, mention meds given and route, prescriptions, significant lab abnormalities, going to OR and other pertinent info. @ 82-year-old female presenting from detention with tachycardia, and rash consistent with hives. Patient is tachycardic, suspect in atrial flutter with 2-1 conduction. She started on Cardizem. She has a chest significant leukocytosis at 21. I am concerned this could be related to infection, possible bacteremia from left femoral Gautam catheter versus lower extremity cellulitis. Patient started on IV antibiotics. She does have an elevated troponin 0.4. This level will be trended is likely related to demand from arrhythmia. She has no ongoing chest pain. And denies any chest pain. Patient will be admitted to internal medicine with cardiology and infectious disease on consult. Undiagnosed new problem with uncertain prognosis? @ -No Drug Therapy requiring intensive monitoring for toxicity (Heparin, Nitro, Insulin, Cardizem)? @ -No Were any procedures done? @ -No Diagnosis/symptom? @ -[Leukocytosis, atrial flutter with RVR, troponin elevated Acute, or Chronic, or Acute on Chronic? @ -[Acute Uncomplicated (without systemic symptoms) or Complicated (systemic symptoms)? @ -Complicated Side effects of treatment? @ -No Exacerbation, Progression, or Severe Exacerbation? @ -No Poses a threat to life or bodily function? How? (Chest pain, USA, MS, pneumonia, PE, COPD, DKA, ARF, appy, cholecystitis, CVA, Diverticulitis, Homicidal, Suicidal, threat to staff... and all critical care pts) @ -[Yes, arrhythmia, sepsis - Lab Data Result diagrams: 07/27/23 00:08 07/27/23 00:08 Lab Results 07/27/23 07/27/23 07/27/23 Range/Units 00:08 00:08 00:08 WBC 21.4 H (3.8-10.6) k/uL RBC 3.14 L (3.80-5.40) m/uL Hgb 10.2 L (11.4-16.0) gm/dL Hct 32.0 L (34.0-46.0) % MCV 101.9 H (80.0-100.0) fL MCH 32.6 (25.0-35.0) pg MCHC 32.0 (31.0-37.0) g/dL RDW 14.6 (11.5-15.5) % Plt Count 372 (150-450) k/uL MPV 8.1 Neutrophils % 95 % Lymphocytes % 3 % Monocytes % 2 % Eosinophils % 1 % Basophils % 0 % Neutrophils # 20.3 H (1.3-7.7) k/uL Lymphocytes # 0.6 L (1.0-4.8) k/uL Monocytes # 0.4 (0-1.0) k/uL Eosinophils # 0.1 (0-0.7) k/uL Basophils # 0.0 (0-0.2) k/uL Macrocytosis Slight PT 10.9 (9.0-12.0) sec INR 1.0 (<1.2) APTT 24.2 (22.0-30.0) sec Sodium 131 L (137-145) mmol/L Potassium 4.3 (3.5-5.1) mmol/L Chloride 97 L (98-107) mmol/L Carbon Dioxide 17 L (22-30) mmol/L Anion Gap 17 mmol/L BUN 54 H (7-17) mg/dL Creatinine 2.63 H (0.52-1.04) mg/dL Est GFR (CKD-EPI)AfAm 19 (>60 ml/min/1.73 sqM) Est GFR (CKD-EPI)NonAf 16 (>60 ml/min/1.73 sqM) Glucose 183 H (74-99) mg/dL Calcium 9.0 (8.4-10.2) mg/dL Magnesium 1.3 L (1.6-2.3) mg/dL Total Bilirubin 0.4 (0.2-1.3) mg/dL AST 29 (14-36) U/L ALT 15 (4-34) U/L Alkaline Phosphatase 107 (38-126) U/L Troponin I (0.000-0.034) ng/mL NT-Pro-B Natriuret Pep pg/mL Total Protein 7.0 (6.3-8.2) g/dL Albumin 3.2 L (3.5-5.0) g/dL 07/27/23 07/27/23 Range/Units 00:08 00:08 WBC (3.8-10.6) k/uL RBC (3.80-5.40) m/uL Hgb (11.4-16.0) gm/dL Hct (34.0-46.0) % MCV (80.0-100.0) fL MCH (25.0-35.0) pg MCHC (31.0-37.0) g/dL RDW (11.5-15.5) % Plt Count (150-450) k/uL MPV Neutrophils % % Lymphocytes % % Monocytes % % Eosinophils % % Basophils % % Neutrophils # (1.3-7.7) k/uL Lymphocytes # (1.0-4.8) k/uL Monocytes # (0-1.0) k/uL Eosinophils # (0-0.7) k/uL Basophils # (0-0.2) k/uL Macrocytosis PT (9.0-12.0) sec INR (<1.2) APTT (22.0-30.0) sec Sodium (137-145) mmol/L Potassium (3.5-5.1) mmol/L Chloride (98-107) mmol/L Carbon Dioxide (22-30) mmol/L Anion Gap mmol/L BUN (7-17) mg/dL Creatinine (0.52-1.04) mg/dL Est GFR (CKD-EPI)AfAm (>60 ml/min/1.73 sqM) Est GFR (CKD-EPI)NonAf (>60 ml/min/1.73 sqM) Glucose (74-99) mg/dL Calcium (8.4-10.2) mg/dL Magnesium (1.6-2.3) mg/dL Total Bilirubin (0.2-1.3) mg/dL AST (14-36) U/L ALT (4-34) U/L Alkaline Phosphatase (38-126) U/L Troponin I 0.404 H* (0.000-0.034) ng/mL NT-Pro-B Natriuret Pep 9640 pg/mL Total Protein (6.3-8.2) g/dL Albumin (3.5-5.0) g/dL Critical Care Time Critical Care Time: Yes Total Critical Care Time: 35 Disposition Clinical Impression: Leukocytosis, Cellulitis, Atrial flutter with rapid ventricular response, Troponin level elevated Disposition: ADMITTED IP TO THIS HOSP Condition: Stable Is patient prescribed a controlled substance at d/c from ED?: No Referrals: Ten Guerrero MD [Primary Care Provider] - 1-2 days Time of Disposition: 03:59
[2023-07-27] MEDS ORDERED: HEPARIN SODIUM 1,000 UN/ML (10ML VL) IV ONE (04:17)
[2023-07-27] MEDS: HEPARIN SOD,PORK IN 0.45% NACL 25,000 UNIT in 0.45% NACL 1 250ML.BAG IV SCH (05:25)
[2023-07-27] MEDS: PRAVASTATIN SODIUM 20 MG TAB PO SCH (09:13)
[2023-07-27] MEDS: ASPIRIN 81 MG PO SCH (09:13)
[2023-07-27] MEDS: METOPROLOL TARTRATE 50 MG TAB PO SCH ×2 (09:13→21:25)
[2023-07-27] MEDS ORDERED: TRIAMCINOLONE 0.1% CREAM 80 GM TUBE TOPICAL PRN (10:28)
--- NOTE | 2023-07-27 11:11 | P.CRDCN ---
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 She was recently hospitalized after a fall discharged to rehab. Patient apparently developed an ALLERGIC reaction with a rash and tachycardia, and was brought into the hospital. She is status post Benadryl and Solu-Medrol. There was concern for atrial flutter on EKG and thus this consult was generated. Patient denies having any chest pain or shortness of breath. She had a recent hospitalization in May which time she was here for a fall. She also had diarrhea which she states has resolved. EKGs and telemetry have been reviewed and patient is now found to be in atrial flutter. No sign of atrial fibrillation. She has been started on a Cardizem drip which will be discontinued. EKG sinus tachycardia Chest x-ray: Vascular congestion WBC 21.4, Humulin 10.2, platelet count 372. D-dimer 25. Sodium 131, potassium 4.3, BUN 54 creatinine 2.63. Troponin 0.404, 0.796, 1.36. Home cardiac medications: Demadex 40 mg daily Echocardiogram obtained 06/11/2023 revealed normal LV systolic function. Mild to moderate mitral regurgitation. Mild aortic stenosis. Review Of Systems: At the time of my evaluation: Constitutional: No fever, no chills. No weakness, fatigue or lethargy. EENT: No headache. No dizziness. Lungs: No shortness of breath, cough, no sputum production. No wheezing. Cardiovascular: No chest pain, no lower extremity edema. No palpitations. No paroxysmal nocturnal dyspnea. No orthopnea. No lightheadedness or dizziness. No syncopal episodes. Abdominal: No abdominal pain. No nausea, vomiting. No diarrhea. No constipation. No bloody or tarry stools. Musculoskeletal: No myalgias. No muscle weakness, no frequent falls. Integumentary: No wounds. No rash. No unusual bruising. Neurologic: No aphasia. No facial droop. Physical examination: Gen: This is an 82-year-old female. She is resting on ER stretch and appears to be comfortable. VS: reviewed HEENT: Head is atraumatic, normocephalic. Pupils equal, round. Sclerae is anicteric. NECK: Supple. No JVD. . LUNGS: Clear to auscultation. No wheezes or rhonchi. No intercostal retractions. HEART: Regular rate and rhythm. No murmur. ABDOMEN: Soft No tenderness. EXTREMITIES: No pedal edema. No calf tenderness. NEUROLOGICAL: Patient is awake, alert. Assessment: Atrial flutter has been ruled out Sinus tachycardia Non-ST elevated myocardial infarction ALLERGIC reaction History of recent diarrhea Recent fall Recent E. coli bacteremia secondary to UTI History of venous stasis ulcer right lower extremity Plan: Discontinue Cardizem drip Start patient on metoprolol 50 mg twice daily Continue heparin drip Start patient on aspirin 81 mg daily, pravastatin 20 mg daily and Lopressor 50 mg twice daily Obtain VQ scan for elevated d-dimer rule out PE Obtain limited 2-D echocardiogram and Doppler study to assess LVF Further recommendations to follow based upon clinical course Thank you kindly for this consultation. Nurse practitioner note has been reviewed, I agree with documented findings and plan of care. Patient was seen and examined. Past Medical History Past Medical History: GERD/Reflux, Hyperlipidemia, Hypertension, Osteoarthritis (OA), Renal Disease, Skin Disorder Additional Past Medical History / Comment(s): chronic low back/cervical and bilateral shoulder pain, benign colon polyps/diverticular disease, bilateral lower extremity cellulitis but R leg much more often, UTIs, polynephritis, hiatal hernia many years ago.dialysis History of Any Multi-Drug Resistant Organisms: None Reported Past Surgical History: Appendectomy, Cholecystectomy, Joint Replacement, Orthopedic Surgery, Tubal Ligation Additional Past Surgical History / Comment(s): Bilateral total knee arthroplasties, pain clinic procedures, colonoscopies/benign polypectomies, bilateral cataract removals/lens implants, PICC line. Past Anesthesia/Blood Transfusion Reactions: No Reported Reaction Past Psychological History: No Psychological Hx Reported Smoking Status: Never smoker Past Alcohol Use History: Rare Past Drug Use History: None Reported - Past Family History Mother Family Medical History: Cancer Additional Family Medical History / Comment(s): BREAST CANCER. at 28 years old Father Family Medical History: Cancer Additional Family Medical History / Comment(s): LIVER CANCER/HEART PROBLEMS. Son(s) Family Medical History: Cancer Additional Family Medical History / Comment(s): MULTIPLE MYELOMA/bone cancer- PASSED 2015. Medications and Allergies Home Medications Medication Instructions Recorded Confirmed Type Montelukast [Singulair] 10 mg PO HS@199908/18/19 07/27/23 History Ergocalciferol (Vitamin D2) 1,250 mcg PO THAPA 04/18/23 07/27/23 History [Drisdol (50,000 Iu)] Torsemide [Demadex] 40 mg PO DAILY tab 06/24/23 07/27/23 Rx Acetaminophen [Tylenol] 650 mg PO Q6H PRN 06/28/23 07/27/23 History Cholestyramine (with Sugar) 4 gm PO BID@08,199906/28/23 07/27/23 History [Questran Packet] HYDROcodone/APAP 7.5-325MG [[place] 1 tab PO Q6H PRN 06/28/23 07/27/23 History 7.5-325] Ascorbic Acid [Vitamin C] 1,000 mg PO DAILY@79907/27/23 07/27/23 History FLUoxetine HCL [PROzac] 20 mg PO DAILY@79907/27/23 07/27/23 History Hydrocortisone Cream 1 applic TOPICAL Q8H PRN 07/27/23 07/27/23 History [Hydrocortisone 2.5% Cream] Loperamide [Imodium] 2 mg PO Q4H PRN MDD 16 caps 07/27/23 07/27/23 History Sevelamer [Renvela] 800 mg PO BID@1230,1730 07/27/23 07/27/23 History Allergies Allergy/AdvReac Type Severity Reaction Status Date / Time adhesive tape Allergy Unknown Rash/Hives Verified 07/27/23 07:22 Sulfa (Sulfonamide Allergy Rash/Hives Verified 07/27/23 07:22 Antibiotics) Physical Exam Vitals: Vital Signs Temp Pulse Resp BP Pulse Ox 07/27/23 06:21 116 H 16 116/60 07/27/23 04:15 122 H 20 128/55 93 L 07/27/23 02:21 99.1 F 134 H 21 131/80 93 L 07/26/23 23:25 98.6 F 142 H 19 138/78 93 L Intake and Output 07/26/23 07/27/23 07/27/23 22:59 06:59 14:59 Intake Total 45.167 Balance 45.167 Intake: Intake, IV Titration 45.167 Amount Diltiazem 125 mg In 45.167 Sodium Chloride 0.9% 100 ml @ 5 MG/HR 5 mls/hr IV .Q24H [facility] Rx#:[id number] Other: Weight 77.111 kg Results 07/27/23 00:08 07/27/23 00:08 Cardiac Enzymes 07/27/23 07/27/23 07/27/23 Range/Units 00:08 00:08 03:26 AST 29 (14-36) U/L Troponin I 0.404 H* 0.796 H* (0.000-0.034) ng/mL 07/27/23 Range/Units 06:27 AST (14-36) U/L Troponin I 1.360 H* (0.000-0.034) ng/mL Coagulation 07/27/23 Range/Units 00:08 PT 10.9 (9.0-12.0) sec APTT 24.2 (22.0-30.0) sec CBC 07/27/23 Range/Units 00:08 WBC 21.4 H (3.8-10.6) k/uL RBC 3.14 L (3.80-5.40) m/uL Hgb 10.2 L (11.4-16.0) gm/dL Hct 32.0 L (34.0-46.0) % Plt Count 372 (150-450) k/uL Comprehensive Metabolic Panel 07/27/23 Range/Units 00:08 Sodium 131 L (137-145) mmol/L Potassium 4.3 (3.5-5.1) mmol/L Chloride 97 L (98-107) mmol/L Carbon Dioxide 17 L (22-30) mmol/L BUN 54 H (7-17) mg/dL Creatinine 2.63 H (0.52-1.04) mg/dL Glucose 183 H (74-99) mg/dL Calcium 9.0 (8.4-10.2) mg/dL AST 29 (14-36) U/L ALT 15 (4-34) U/L Alkaline Phosphatase 107 (38-126) U/L Total Protein 7.0 (6.3-8.2) g/dL Albumin 3.2 L (3.5-5.0) g/dL Current Medications Generic Name Dose Route Start Last Admin Trade Name Freq PRN Reason Stop Dose Admin Acetaminophen 650 mg 07/27/23 04:03 Acetaminophen Tab 325 Mg Tab PO Q6HR PRN Mild Pain or Fever > 100.5 Heparin Sodium (Porcine) 0 unit 07/27/23 04:17 Heparin Sodium 1,000 Un/Ml (10ml Vl) IV PER PROTOCOL PRN Low PTT Protocol Hydromorphone HCl 0.5 mg 07/27/23 04:03 Hydromorphone 0.5 Mg/0.5 Ml Syringe IVP Q3HR PRN Moderate Pain (Scale 4 to 6) Diltiazem HCl 125 mg/ Sodium 125 mls @ 5 mls/hr 07/27/23 01:15 07/27/23 05:30 Chloride IV 15 mg/hr .Q24H [place] 15 mls/hr Infusion 5 MG/HR Heparin Sodium/Sodium Chloride 250 mls @ 9.253 mls/hr 07/27/23 04:30 07/27/23 05:25 25,000 unit/ Sodium Chloride IV 12 units/kg/hr .Q24H [place] 9.253 mls/hr Administration Protocol 12 UNITS/KG/HR Vancomycin HCl 1,500 mg/ 500 mls @ 167 mls/hr 07/28/23 06:00 Sodium Chloride IVPB 07/28/23 08:59 ONCE ONE Miscellaneous Information 1 each 07/27/23 03:18 Vancomycin Iv Per Pharmacy 1 Each Misc MISCELLANE DIRECTED PRN Per Protocol Protocol Naloxone HCl 0.2 mg 07/27/23 04:03 Naloxone 0.4 Mg/Ml 1 Ml Vial IV Q2M PRN Opioid Reversal Intake and Output 07/26/23 07/27/23 07/27/23 22:59 06:59 14:59 Intake Total 45.167 Balance 45.167 Intake: Intake, IV Titration 45.167 Amount Diltiazem 125 mg In 45.167 Sodium Chloride 0.9% 100 ml @ 5 MG/HR 5 mls/hr IV .Q24H [facility] Rx#:[id number] Other: Weight 77.111 kg 07/27/23 00:08 07/27/23 00:08
--- NOTE | 2023-07-27 11:18 | P.NPCON ---
History of Present Illness - Reason for Consult chronic renal failure - History of Present Illness Patient is an 82-year-old female with history of dialysis dependent acute kidney injury from recent hospitalization last month. Patient had developed ATN secondary to rhabdo my lysis and severe sepsis. Patient reports of decreased urine output and hemodialysis is currently on hold. Patient's last treatment was last week on Tuesday. She currently has a tunneled left femoral catheter. Patient is currently at [facility]. Admitted with rapid heart rate. Patient is evaluated by cardiology. Cardizem drip has been discontinued. Atrial flutter ruled out. History of ALLERGIC reaction recently, status post Benadryl and Solu-Medrol. Patient reports good urine output Serum creatinine at 2.6 mg/dL. Review of Systems As per HPI Past Medical History Past Medical History: GERD/Reflux, Hyperlipidemia, Hypertension, Osteoarthritis (OA), Renal Disease, Skin Disorder Additional Past Medical History / Comment(s): chronic low back/cervical and bilateral shoulder pain, benign colon polyps/diverticular disease, bilateral lower extremity cellulitis but R leg much more often, UTIs, polynephritis, hiatal hernia many years ago.dialysis History of Any Multi-Drug Resistant Organisms: None Reported Past Surgical History: Appendectomy, Cholecystectomy, Joint Replacement, Orthopedic Surgery, Tubal Ligation Additional Past Surgical History / Comment(s): Bilateral total knee arthroplasties, pain clinic procedures, colonoscopies/benign polypectomies, bilateral cataract removals/lens implants, PICC line. Past Anesthesia/Blood Transfusion Reactions: No Reported Reaction Past Psychological History: No Psychological Hx Reported Smoking Status: Never smoker Past Alcohol Use History: Rare Past Drug Use History: None Reported - Past Family History Mother Family Medical History: Cancer Additional Family Medical History / Comment(s): BREAST CANCER. at 28 years old Father Family Medical History: Cancer Additional Family Medical History / Comment(s): LIVER CANCER/HEART PROBLEMS. Son(s) Family Medical History: Cancer Additional Family Medical History / Comment(s): MULTIPLE MYELOMA/bone cancer- PASSED 2015. Medications and Allergies Home Medications Medication Instructions Recorded Confirmed Type Montelukast [Singulair] 10 mg PO HS@199908/18/19 07/27/23 History Ergocalciferol (Vitamin D2) 1,250 mcg PO THAPA 04/18/23 07/27/23 History [Drisdol (50,000 Iu)] Torsemide [Demadex] 40 mg PO DAILY tab 06/24/23 07/27/23 Rx Acetaminophen [Tylenol] 650 mg PO Q6H PRN 06/28/23 07/27/23 History Cholestyramine (with Sugar) 4 gm PO BID@0800,199906/28/23 07/27/23 History [Questran Packet] HYDROcodone/APAP 7.5-325MG [[place] 1 tab PO Q6H PRN 06/28/23 07/27/23 History 7.5-325] Ascorbic Acid [Vitamin C] 1,000 mg PO DAILY@79907/27/23 07/27/23 History FLUoxetine HCL [PROzac] 20 mg PO DAILY@79907/27/23 07/27/23 History Hydrocortisone Cream 1 applic TOPICAL Q8H PRN 07/27/23 07/27/23 History [Hydrocortisone 2.5% Cream] Loperamide [Imodium] 2 mg PO Q4H PRN MDD 16 caps 07/27/23 07/27/23 History Sevelamer [Renvela] 800 mg PO BID@1230,1730 07/27/23 07/27/23 History Allergies Allergy/AdvReac Type Severity Reaction Status Date / Time adhesive tape Allergy Unknown Rash/Hives Verified 07/27/23 07:22 Sulfa (Sulfonamide Allergy Rash/Hives Verified 07/27/23 07:22 Antibiotics) Physical Exam Vitals: Vital Signs Temp Pulse Resp BP Pulse Ox 07/27/23 10:00 99 F 106 H 20 120/77 94 L 07/27/23 09:00 98.5 F 108 H 20 131/72 93 L 07/27/23 06:21 116 H 16 116/60 07/27/23 04:15 122 H 20 128/55 93 L 07/27/23 02:21 99.1 F 134 H 21 131/80 93 L 07/26/23 23:25 98.6 F 142 H 19 138/78 93 L Intake and Output 07/26/23 07/27/23 07/27/23 22:59 06:59 14:59 Intake Total 45.167 Balance 45.167 Intake: Intake, IV Titration 45.167 Amount Diltiazem 125 mg In 45.167 Sodium Chloride 0.9% 100 ml @ 5 MG/HR 5 mls/hr IV .Q24H [facility] Rx#:[id number] Other: Weight 77.111 kg Patient is awake, comfortable, no acute distress Alert oriented 3 Examination of the heart S1 and S2 Examination of the lungs bilateral breath sounds are heard Abdomen is soft nontender Examination lower extremities shows left leg with no significant edema right leg is in brace Results - Lab Results Most recent lab results Calcium 9.0 mg/dL (8.4-10.2) 07/27/23 00:08 Magnesium 1.3 mg/dL (1.6-2.3) L 07/27/23 00:08 07/27/23 00:08 07/27/23 00:08 Assessment and Plan Assessment: 1. Acute kidney injury ATN from last hospitalization secondary to rhabdo my lysis and severe sepsis, currently nonoliguric. Patient was hemodialysis dependent however hemodialysis has been on hold since 07/22/2023. 2. Metabolic acidosis associated with renal failure 3. Elevated troponin been followed by cardiology 4. Mild volume overload Plan: Continue to diurese patient Repeat labs to follow-up on recovery of renal function Check phosphorus Avoid nephrotoxic medications Thank you for the consultation. We will continue to follow the patient with you during her hospitalization.
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
[2023-07-27] MEDS: HEPARIN SODIUM 1,000 UN/ML (10ML VL) IV PRN (12:31)
--- NOTE | 2023-07-27 15:58 | NM ---
EXAMINATION TYPE: NM pul perfusion DATE OF EXAM: 07/27/2023 COMPARISON: NONE CLINICAL INDICATION: Female, 82 years old with history of Elevated ddimer; Following administration of 5.2 mCi Tc 99m MAA. Images obtained post injection. FINDINGS: Homogeneous distribution radiotracer without evidence for perfusion abnormality. IMPRESSION: Low probability for pulmonary embolism.
[2023-07-27] MEDS: SEVELAMER 800 MG TAB PO SCH ×2 (16:06→17:00)
--- NOTE | 2023-07-27 17:06 | P.HPIM ---
History of Present Illness H&P Date: 07/27/23 This is an 82-year-old female patient with an extensive medical history who presented to the ER with concerns of atrial flutter with RVR and rash. Patient remains with left femoral dialysis port. Concerns of possible ALLERGIC reaction due to antibiotics patient was given Benadryl and Solu-Medrol. Patient is a poor historian unable to recall recent events. Past medical history includes hyperlipidemia hypertension, end-stage renal disease requiring hemodialysis during previous hospitalization, osteoarthritis, GERD. Chest x-ray completed showing vascular congestion. EKG completed showing sinus tachycardia possible atrial flutter rate 144. White blood cell elevated 21.4, creatinine 2.63, bun 54. BNP 9640. Troponin 0.404, 0.7 696 and 1.360. Wound noted to left lower extremity. Patient was started on heparin for elevated troponins and Cardizem. Patient started on IV vancomycin. 2-D echo ordered. Unclear patient has been receiving hemodialysis. Attempting to obtain medical records. Cardiology, nephrology infectious disease and wound care service is consulted. Blood culture ordered. Repeat labs will be ordered. At this time patient is resting comfortably in bed. Current vital signs temp 98.5, heart rate 108, respiratory rate 20, blood pressure 131/72 with a pulse ox 93% on room air Review of Systems Please refer to HPI otherwise unremarkable Past Medical History Past Medical History: GERD/Reflux, Hyperlipidemia, Hypertension, Osteoarthritis (OA), Renal Disease, Skin Disorder Additional Past Medical History / Comment(s): chronic low back/cervical and bilateral shoulder pain, benign colon polyps/diverticular disease, bilateral lower extremity cellulitis but R leg much more often, UTIs, polynephritis, hiatal hernia many years ago.dialysis History of Any Multi-Drug Resistant Organisms: None Reported Past Surgical History: Appendectomy, Cholecystectomy, Joint Replacement, Orthopedic Surgery, Tubal Ligation Additional Past Surgical History / Comment(s): Bilateral total knee arthroplasties, pain clinic procedures, colonoscopies/benign polypectomies, bilateral cataract removals/lens implants, PICC line. Past Anesthesia/Blood Transfusion Reactions: No Reported Reaction Past Psychological History: No Psychological Hx Reported Smoking Status: Never smoker Past Alcohol Use History: Rare Past Drug Use History: None Reported - Past Family History Mother Family Medical History: Cancer Additional Family Medical History / Comment(s): BREAST CANCER. at 28 years old Father Family Medical History: Cancer Additional Family Medical History / Comment(s): LIVER CANCER/HEART PROBLEMS. Son(s) Family Medical History: Cancer Additional Family Medical History / Comment(s): MULTIPLE MYELOMA/bone cancer- PASSED 2015. Medications and Allergies Home Medications Medication Instructions Recorded Confirmed Type Montelukast [Singulair] 10 mg PO HS@199908/18/19 07/27/23 History Ergocalciferol (Vitamin D2) 1,250 mcg PO THAPA 04/18/23 07/27/23 History [Drisdol (50,000 Iu)] Torsemide [Demadex] 40 mg PO DAILY tab 06/24/23 07/27/23 Rx Acetaminophen [Tylenol] 650 mg PO Q6H PRN 06/28/23 07/27/23 History Cholestyramine (with Sugar) 4 gm PO BID@08,199906/28/23 07/27/23 History [Questran Packet] HYDROcodone/APAP 7.5-325MG [[place] 1 tab PO Q6H PRN 06/28/23 07/27/23 History 7.5-325] Ascorbic Acid [Vitamin C] 1,000 mg PO DAILY@79907/27/23 07/27/23 History FLUoxetine HCL [PROzac] 20 mg PO DAILY@79907/27/23 07/27/23 History Hydrocortisone Cream 1 applic TOPICAL Q8H PRN 07/27/23 07/27/23 History [Hydrocortisone 2.5% Cream] Loperamide [Imodium] 2 mg PO Q4H PRN MDD 16 caps 07/27/23 07/27/23 History Sevelamer [Renvela] 800 mg PO BID@1230,1730 07/27/23 07/27/23 History Allergies Allergy/AdvReac Type Severity Reaction Status Date / Time adhesive tape Allergy Unknown Rash/Hives Verified 07/27/23 07:22 Sulfa (Sulfonamide Allergy Rash/Hives Verified 07/27/23 07:22 Antibiotics) Physical Exam Vitals: Vital Signs Temp Pulse Resp BP Pulse Ox 07/27/23 09:00 98.5 F 108 H 20 131/72 93 L 07/27/23 06:21 116 H 16 116/60 07/27/23 04:15 122 H 20 128/55 93 L 07/27/23 02:21 99.1 F 134 H 21 131/80 93 L 07/26/23 23:25 98.6 F 142 H 19 138/78 93 L Intake and Output 07/26/23 07/27/23 07/27/23 22:59 06:59 14:59 Intake Total 45.167 Balance 45.167 Intake: Intake, IV Titration 45.167 Amount Diltiazem 125 mg In 45.167 Sodium Chloride 0.9% 100 ml @ 5 MG/HR 5 mls/hr IV .Q24H [facility] Rx#:[id number] Other: Weight 77.111 kg Head normocephalic Neck supple Lungs diminished bilaterally Heart regular rate and rhythm S1-S2, no rub or gallop Abdomen is soft nontender nondistended positive bowel sounds no hepatosplenomegaly Extremities multiple wounds to lower extremities Neuro alert and orientated to 3 Results CBC & Chem 7: 07/27/23 00:08 07/27/23 00:08 Labs: Abnormal Lab Results - Last 24 Hours (Table) 07/27/23 07/27/23 07/27/23 Range/Units 00:08 00:08 00:08 WBC 21.4 H (3.8-10.6) k/uL RBC 3.14 L (3.80-5.40) m/uL Hgb 10.2 L (11.4-16.0) gm/dL Hct 32.0 L (34.0-46.0) % MCV 101.9 H (80.0-100.0) fL Neutrophils # 20.3 H (1.3-7.7) k/uL Lymphocytes # 0.6 L (1.0-4.8) k/uL Sodium 131 L (137-145) mmol/L Chloride 97 L (98-107) mmol/L Carbon Dioxide 17 L (22-30) mmol/L BUN 54 H (7-17) mg/dL Creatinine 2.63 H (0.52-1.04) mg/dL Glucose 183 H (74-99) mg/dL Magnesium 1.3 L (1.6-2.3) mg/dL Troponin I 0.404 H* (0.000-0.034) ng/mL Albumin 3.2 L (3.5-5.0) g/dL 07/27/23 07/27/23 Range/Units 03:26 06:27 WBC (3.8-10.6) k/uL RBC (3.80-5.40) m/uL Hgb (11.4-16.0) gm/dL Hct (34.0-46.0) % MCV (80.0-100.0) fL Neutrophils # (1.3-7.7) k/uL Lymphocytes # (1.0-4.8) k/uL Sodium (137-145) mmol/L Chloride (98-107) mmol/L Carbon Dioxide (22-30) mmol/L BUN (7-17) mg/dL Creatinine (0.52-1.04) mg/dL Glucose (74-99) mg/dL Magnesium (1.6-2.3) mg/dL Troponin I 0.796 H* 1.360 H* (0.000-0.034) ng/mL Albumin (3.5-5.0) g/dL Assessment and Plan Assessment: 1. Atrial flutter with RVR 2. Possible ALLERGIC reaction 3. Right lower Cellulitis with multiple wounds 4. Acute renal failure patient was started on hemodialysis during previous admission right femoral dialysis catheter in place. Unclear if patient is still receiving hemodialysis [facility] facility attempting to obtain medical records. Nephrology services consulted 5. Elevated troponins 6. History of recent admission following fall with rhabdomyolysis 7. Recent urinary tract infection with E. coli bacteremia 8. Recent treatment for suspected C. diff 9. History of lateral prosthetic lateral condyle fracture of the distal femur DVT prophylaxis heparin drip. GI prophylaxis Protonix Cardiology, nephrology, infectious disease and wound care service is consulted Patient's started on Cardizem drip 2-D echo ordered Maintained on IV vancomycin Repeat labs ordered Blood culture ordered Time with Patient: Greater than 30 (Greater than 60% of the total time spent in counseling and coordination of care)
[2023-07-27] MEDS: HYDROPHILIC CREAM 180 GM TUBE TOPICAL SCH (19:56)
[2023-07-27] MEDS: LOPERAMIDE 2 MG CAP PO PRN (21:25)
[2023-07-27] MEDS: CHOLESTYRAMINE (WITH SUGAR) 4 GM PACKET PO SCH (21:25)
[2023-07-27] MEDS: MONTELUKAST 10 MG TAB PO SCH (21:25)
--- NOTE | 2023-07-27 22:10 | P.CONS ---
History of Present Illness - Reason for Consult Consult date: 07/27/23 Leukocytosis Requesting physician: Hernandez Romero - Chief Complaint Tachycardia and rash x one day - History of Present Illness Patient is a 82-year-old female with a past medical history significant for hypertension hyperlipidemia history of chronic lower extremity venous stasis ulcer with recent admission to the hospital have E. coli bacteremia patient did develop ATN requiring hemodialysis patient was subsequently stabilized and transferred to local [facility] for rehabilitation patient has been brought into the hospital for evaluation of tachycardia and dry suspected of having an allergic reaction patient did receive Benadryl and Solu- Medrol patient on presentation to the hospital was afebrile and did have a low- grade fever of 99.1 F she was tachycardic however not hypotensive or hypoxic patient did have a elevated white of 21.4 with a left shift BUN/creatinine has been elevated liver exams are normal patient did have a chest x-ray vascular congestion infectious disease was consulted because of her elevated white count patient is currently being on empiric vancomycin pharmacy to dose patient has developed significant excoriation to bilateral gluteal area since her admission to the hospital patient complaining of some sharp pain to the area moderate intensity and no drainage was noticed patient overall pain and swelling to the right leg has decreased intensity and the patient wound is healing well patient still have the femoral dialysis catheter however dialysis has been put on hold Review of Systems Positive point and negatives has been mentioned in the HPI, complete review of systems was performed and all other systems are negative Past Medical History Past Medical History: GERD/Reflux, Hyperlipidemia, Hypertension, Osteoarthritis (OA), Renal Disease, Skin Disorder Additional Past Medical History / Comment(s): chronic low back/cervical and bilateral shoulder pain, benign colon polyps/diverticular disease, bilateral lower extremity cellulitis but R leg much more often, UTIs, polynephritis, hiatal hernia many years ago.dialysis History of Any Multi-Drug Resistant Organisms: None Reported Past Surgical History: Appendectomy, Cholecystectomy, Joint Replacement, Orthopedic Surgery, Tubal Ligation Additional Past Surgical History / Comment(s): Bilateral total knee arthroplasties, pain clinic procedures, colonoscopies/benign polypectomies, bilateral cataract removals/lens implants, PICC line. Past Anesthesia/Blood Transfusion Reactions: No Reported Reaction Past Psychological History: No Psychological Hx Reported Smoking Status: Never smoker Past Alcohol Use History: Rare Past Drug Use History: None Reported - Past Family History Mother Family Medical History: Cancer Additional Family Medical History / Comment(s): BREAST CANCER. at 28 years old Father Family Medical History: Cancer Additional Family Medical History / Comment(s): LIVER CANCER/HEART PROBLEMS. Son(s) Family Medical History: Cancer Additional Family Medical History / Comment(s): MULTIPLE MYELOMA/bone cancer- PASSED 2015. Medications and Allergies Home Medications Medication Instructions Recorded Confirmed Type Montelukast [Singulair] 10 mg PO HS@199908/18/19 07/27/23 History Ergocalciferol (Vitamin D2) 1,250 mcg PO THAPA 04/18/23 07/27/23 History [Drisdol (50,000 Iu)] Torsemide [Demadex] 40 mg PO DAILY tab 06/24/23 07/27/23 Rx Acetaminophen [Tylenol] 650 mg PO Q6H PRN 06/28/23 07/27/23 History Cholestyramine (with Sugar) 4 gm PO BID@08,199906/28/23 07/27/23 History [Questran Packet] HYDROcodone/APAP 7.5-325MG [[place] 1 tab PO Q6H PRN 06/28/23 07/27/23 History 7.5-325] Ascorbic Acid [Vitamin C] 1,000 mg PO DAILY@79907/27/23 07/27/23 History FLUoxetine HCL [PROzac] 20 mg PO DAILY@79907/27/23 07/27/23 History Hydrocortisone Cream 1 applic TOPICAL Q8H PRN 07/27/23 07/27/23 History [Hydrocortisone 2.5% Cream] Loperamide [Imodium] 2 mg PO Q4H PRN MDD 16 caps 07/27/23 07/27/23 History Sevelamer [Renvela] 800 mg PO BID@1230,1730 07/27/23 07/27/23 History Allergies Allergy/AdvReac Type Severity Reaction Status Date / Time adhesive tape Allergy Unknown Rash/Hives Verified 07/27/23 07:22 Sulfa (Sulfonamide Allergy Rash/Hives Verified 07/27/23 07:22 Antibiotics) Physical Exam Vitals: Vital Signs Temp Pulse Resp BP Pulse Ox 07/27/23 09:00 98.5 F 108 H 20 131/72 93 L 07/27/23 06:21 116 H 16 116/60 07/27/23 04:15 122 H 20 128/55 93 L 07/27/23 02:21 99.1 F 134 H 21 131/80 93 L 07/26/23 23:25 98.6 F 142 H 19 138/78 93 L Intake and Output 07/26/23 07/27/23 07/27/23 22:59 06:59 14:59 Intake Total 45.167 Balance 45.167 Intake: Intake, IV Titration 45.167 Amount Diltiazem 125 mg In 45.167 Sodium Chloride 0.9% 100 ml @ 5 MG/HR 5 mls/hr IV .Q24H [facility] Rx#:[id number] Other: Weight 77.111 kg GENERAL DESCRIPTION: Elderly female lying in bed, no distress. No tachypnea or accessory muscle of respiration use. HEENT: Shows Pallor , no scleral icterus. Oral mucous membrane is dry. NECK: Trachea central, no thyromegaly. LUNGS: Unlabored breathing. Decreased breath sound at the base HEART: S1, S2, regular rate and rhythm. No loud murmur ABDOMEN: Soft, no tenderness , EXTREMITIES: Right lower extremity wound seemed has significantly decreased in size with no slough tissue no surrounding redness or drainage SKIN: No rash, no masses palpable. Patient did have significant excoriation of the sacral area NEUROLOGICAL: The patient is awake, alert, oriented x3, mood and affect normal. Results CBC & Chem 7: 07/27/23 00:08 07/27/23 00:08 Labs: Abnormal Lab Results - Last 24 Hours (Table) 07/27/23 07/27/23 07/27/23 Range/Units 00:08 00:08 00:08 WBC 21.4 H (3.8-10.6) k/uL RBC 3.14 L (3.80-5.40) m/uL Hgb 10.2 L (11.4-16.0) gm/dL Hct 32.0 L (34.0-46.0) % MCV 101.9 H (80.0-100.0) fL Neutrophils # 20.3 H (1.3-7.7) k/uL Lymphocytes # 0.6 L (1.0-4.8) k/uL Sodium 131 L (137-145) mmol/L Chloride 97 L (98-107) mmol/L Carbon Dioxide 17 L (22-30) mmol/L BUN 54 H (7-17) mg/dL Creatinine 2.63 H (0.52-1.04) mg/dL Glucose 183 H (74-99) mg/dL Magnesium 1.3 L (1.6-2.3) mg/dL Troponin I 0.404 H* (0.000-0.034) ng/mL Albumin 3.2 L (3.5-5.0) g/dL 07/27/23 07/27/23 Range/Units 03:26 06:27 WBC (3.8-10.6) k/uL RBC (3.80-5.40) m/uL Hgb (11.4-16.0) gm/dL Hct (34.0-46.0) % MCV (80.0-100.0) fL Neutrophils # (1.3-7.7) k/uL Lymphocytes # (1.0-4.8) k/uL Sodium (137-145) mmol/L Chloride (98-107) mmol/L Carbon Dioxide (22-30) mmol/L BUN (7-17) mg/dL Creatinine (0.52-1.04) mg/dL Glucose (74-99) mg/dL Magnesium (1.6-2.3) mg/dL Troponin I 0.796 H* 1.360 H* (0.000-0.034) ng/mL Albumin (3.5-5.0) g/dL Assessment and Plan (1) Cellulitis Current Visit: Yes Status: Acute Code(s): L03.90 - CELLULITIS, UNSPECIFIED SNOMED Code(s): 724568180 (2) Leukocytosis Current Visit: Yes Status: Acute Code(s): D72.829 - ELEVATED WHITE BLOOD CELL COUNT, UNSPECIFIED SNOMED Code(s): 319020648 (3) Stage II pressure ulcer of left buttock Current Visit: Yes Status: Acute Code(s): L89.322 - PRESSURE ULCER OF LEFT BUTTOCK, STAGE 2 SNOMED Code(s): 01598628204053 (4) Stage II pressure ulcer of left heel Current Visit: Yes Status: Acute Code(s): L89.622 - PRESSURE ULCER OF LEFT HEEL, STAGE 2 SNOMED Code(s): 43911725640241 (5) Stage II pressure ulcer of right buttock Current Visit: Yes Status: Acute Code(s): L89.312 - PRESSURE ULCER OF RIGHT BUTTOCK, STAGE 2 SNOMED Code(s): 40776882669830 Plan: 1patient presented to hospital with tachycardia patient did have a low-grade fever and elevated white count source gluteal cellulitis with excoriation to the gluteal area versus dialysis catheter infection as the patient right lower extremity wound is healing well patient abdominal was soft and examination and no clinical suspicious for pneumonia 2-did insufficiency high risk of nephrotoxicity from vancomycin 3-patient has received a dose of vancomycin which should be in her system for the next 24 hours we will hold on adding further vancomycin at this point 4-right lower extremity wound care with a dry Aquacel dressing and Daniel wrap for compression 5-we will apply zinc to the excoriated skin to the bilateral gluteal and sacral area keep the area of the pressure 6-follow-up on the blood cultures We will follow on clinical condition and cultures to further adjust medication if needed Thank you for this consultation we will follow the patient along with you Dictation was produced using [employer] dictation software. please excuse any grammatical, word or spelling errors.
[2023-07-28] MEDS: HEPARIN SOD,PORK IN 0.45% NACL 25,000 UNIT in 0.45% NACL 1 250ML.BAG IV SCH (03:29)
[2023-07-28] MEDS ORDERED: VANCOMYCIN 1,500 MG in SODIUM CHLORIDE 0.9% 500 ML 500 ML IVPB ONE (06:00)
[2023-07-28] MEDS: PANTOPRAZOLE 40 MG TABLET PO SCH (06:19)
[2023-07-28] MEDS: HYDROcodone/APAP 7.5-325MG 1 EACH TAB PO PRN (06:19)
[2023-07-28 08:03] LABS: Basophils % (A) 0 %; Eosinophils % (A) 0 %; HCT 28.1 % (34.0-46.0); HGB 8.8 gm/dL (11.4-16.0); Hypochromasia Slight; Lymphocytes # (A) 0.6 k/uL (1.0-4.8); Lymphocytes % (A) 3 %; MCH 32.3 pg (25.0-35.0); MCHC 31.4 g/dL (31.0-37.0); MCV 102.9 fL (80.0-100.0); Macrocytosis Slight; Mean Platelet Volume 9.3; Monocytes # (A) 0.7 k/uL (0-1.0); Monocytes % (A) 4 %; Neutrophils % (A) 92 %; Platelet Count 241 k/uL (150-450); RBC 2.73 m/uL (3.80-5.40); RDW 14.7 % (11.5-15.5); WBC 19.6 k/uL (3.8-10.6)
[2023-07-28 08:13] LABS: ALT 15 U/L (4-34); AST 35 U/L (14-36); African American GFR (CKD) 16 (>60 ml/min/1.73 sqM); Albumin 2.9 g/dL (3.5-5.0); Alkaline Phosphatase 94 U/L (38-126); Anion Gap 17 mmol/L; Blood Urea Nitrogen 75 mg/dL (7-17); Calcium 8.9 mg/dL (8.4-10.2); Carbon Dioxide 17 mmol/L (22-30); Chloride 101 mmol/L (98-107); Glucose 139 mg/dL (74-99); Non-African American GFR(CKD) 14 (>60 ml/min/1.73 sqM); Potassium 4.1 mmol/L (3.5-5.1); Sodium 135 mmol/L (137-145); Total Bilirubin 0.4 mg/dL (0.2-1.3); Total Protein 6.4 g/dL (6.3-8.2)
[2023-07-28 08:18] LABS: INR 0.9 (<1.2); Partial Thromboplastin Time 23.9 sec (22.0-30.0); Prothrombin Time 9.7 sec (9.0-12.0)
[2023-07-28] MEDS: LOPERAMIDE 2 MG CAP PO PRN (09:06)
[2023-07-28] MEDS: PRAVASTATIN SODIUM 20 MG TAB PO SCH (09:07)
[2023-07-28] MEDS: HYDROmorphone 0.5 MG/0.5 ML SYRINGE IVP PRN (09:07)
[2023-07-28] MEDS: ASPIRIN 81 MG PO SCH (09:07)
[2023-07-28] MEDS: FLUoxetine HCL 20 MG CAP PO SCH (09:07)
[2023-07-28] MEDS: ASCORBIC ACID 500 MG TAB PO SCH (09:07)
[2023-07-28] MEDS: METOPROLOL TARTRATE 50 MG TAB PO SCH ×2 (09:07→20:20)
--- NOTE | 2023-07-28 09:14 | CA ---
Transthoracic Echo Report Name: Dania Vergara Age: 82 Gender: F : 1940 Exam Date: 07/27/2023 13:25 Exam Location: [facility] Ht (in): 62 Wt (lb): 170 Ordering Physician: Yuliya Rodriguez Attending/Referring Phys: [id number], Michael [facility] Consultant Mary Rodriguez RDCS Procedure CPT: Indications: LVF Cardiac Hx: limited study Technical Quality: Fair Contrast 1: Total Dose (mL): Contrast 2: Total Dose (mL): MEASUREMENTS (Male / Female) Normal Values 2D ECHO LV Diastolic Diameter PLAX 3.8 cm 4.2 - 5.9 / 3.9 - 5.3 cm LV Systolic Diameter PLAX 2.5 cm IVS Diastolic Thickness 1.4 cm 0.6 - 1.0 / 0.6 - 0.9 cm LVPW Diastolic Thickness 1.4 cm 0.6 - 1.0 / 0.6 - 0.9 cm LV Relative Wall Thickness 0.7 LVOT Diameter 2.2 cm LA Systolic Diameter LX 3.4 cm 3.0 - 4.0 / 2.7 - 3.8 cm LV Diastolic Volume MOD BP 68.2 cm??? 67 - 155 / 56 - 104 cm??? LV Systolic Volume MOD BP 32.0 cm??? 22 - 58 / 19 - 49 cm??? LV Ejection Fraction MOD BP 53.0 % >= 55 % LV Cardiac Index MOD BP 1571.1 cm???/min???m??? LV Diastolic Volume MOD 4C 59.3 cm??? LV Systolic Volume MOD 4C 27.6 cm??? LV Ejection Fraction MOD 4C 53.4 % LV Cardiac Index MOD 4C 1373.0 cm???/min???m??? LV Diastolic Length 4C 5.9 cm LV Systolic Length 4C 5.7 cm LV Diastolic Volume MOD 2C 75.0 cm??? LV Systolic Volume MOD 2C 38.1 cm??? LV Ejection Fraction MOD 2C 49.3 % LV Cardiac Index MOD 2C 1604.6 cm???/min???m??? LV Diastolic Length 2C 6.4 cm LV Systolic Length 2C 6.1 cm DOPPLER AV Peak Velocity 185.5 cm/s AV Peak Gradient 13.8 mmHg AV Mean Velocity 119.6 cm/s AV Mean Gradient 6.6 mmHg AV Velocity Time Integral 32.8 cm TR Peak Velocity 247.7 cm/s TR Peak Gradient 24.5 mmHg Right Ventricular Systolic Press 28.8 mmHg FINDINGS Left Ventricle Left ventricular ejection fraction is estimated at 50 %. Small left ventricular cavity. Moderately increased septal wall thickness. Moderately increased posterior wall thickness. Mildly decreased left ventricular ejection fraction. Right Ventricle Right ventricular systolic pressure within normal limits. Right Atrium Left Atrium Mitral Valve Mitral valve thickened. Moderate mitral annular calcification. Aortic Valve Trileaflet aortic valve. Thickened aortic valve without stenosis. Tricuspid Valve Structurally normal tricuspid valve. Pulmonic Valve Structurally normal pulmonic valve. No pulmonic regurgitation. Pericardium No pericardial effusion. Aorta CONCLUSIONS Fair systolic function mild mitral and tricuspid regurgitation moderate mitral annular calcification with aortic valve sclerosis. No pericardial effusion Previewed by: Dr. Ricki Richardson MD (Electronically Signed) Final Date: 28 July 2023 09:13
[2023-07-28] MEDS: CHOLESTYRAMINE (WITH SUGAR) 4 GM PACKET PO SCH ×2 (09:17→20:20)
[2023-07-28] MEDS: HYDROPHILIC CREAM 180 GM TUBE TOPICAL SCH (10:11)
[2023-07-28] MEDS: TORSEMIDE 20 MG TAB PO SCH (10:59)
[2023-07-28] MEDS: HEPARIN SODIUM 1,000 UN/ML (10ML VL) IV PRN (11:21)
--- NOTE | 2023-07-28 11:37 | P.PN ---
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 She was re cently hospitalized after a fall discharged to rehab. Patient apparently developed an ALLERGIC reaction with a rash and tachycardia, and was brought into the hospital. She is status post Benadryl and Solu-Medrol. There was concern for atrial flutter on EKG and thus this consult was generated. Patient denies having any chest pain or shortness of breath. She had a recent hospitalization in May which time she was here for a fall. She also had diarrhea which she states has resolved. EKGs and telemetry have been reviewed and patient is now found to be in atrial flutter. No sign of atrial fibrillation. She has been started on a Cardizem drip which will be discontinued. EKG sinus tachycardia Chest x-ray: Vascular congestion WBC 21.4, Humulin 10.2, platelet count 372. D-dimer 25. Sodium 131, potassium 4.3, BUN 54 creatinine 2.63. Troponin 0.404, 0.796, 1.36. Home cardiac medications: Demadex 40 mg daily Echocardiogram obtained 06/11/2023 revealed normal LV systolic function. Mild to moderate mitral regurgitation. Mild aortic stenosis. 07/28 Patient is seen today in follow-up. Patient remains in the ER waiting for a bed on the CSD unit. Blood pressure 120/73, heart rate is in the 90s. She has been continued on heparin drip and started on aspirin, pravastatin and Lopressor. Cardizem gtt was discontinued yesterday as patient was not found to be in atrial flutter. Her d-dimer came back positive and VQ scan was ordered which was low probability for pulmonary embolism. Echocardiogram limited reveals fair systolic function with EF 50%, mild mitral and tricuspid regurg itation, moderate mitral calcifications with aortic valve sclerosis. Physical examination: Gen: This is an 82-year-old female. She is resting on ER stretch and appears to be comfortable. VS: reviewed HEENT: Head is atraumatic, normocephalic. Pupils equal, round. Sclerae is anicteric. NECK: Supple. No JVD. . LUNGS: Clear to auscultation. No wheezes or rhonchi. No intercostal retract ions. HEART: Regular rate and rhythm. No murmur. ABDOMEN: Soft No tenderness. EXTREMITIES: No pedal edema. No calf tenderness. NEUROLOGICAL: Patient is awake, alert. Assessment: Atrial flutter has been ruled out Sinus tachycardia Non-ST elevated myocardial infarction ALLERGIC reaction History of recent diarrhea Recent fall Recent E. coli bacteremia secondary to UTI History of venous stasis ulcer right lower extremity Plan: Continue patient on metoprolol 50 mg twice daily Continue heparin drip Continue patient on aspirin 81 mg daily, pravastatin 20 mg daily and Lopressor 50 mg twice daily Cardiology will sign off this case and follow on an as-needed basis. Please reconsult for any new concerns. Patient may follow-up in the office in one to 2 weeks. Nurse practitioner note has been reviewed, I agree with documented findings and plan of care. Patient was seen and examined. Objective - Vital Signs Vital signs: Vital Signs Temp 97.6 F 07/28/23 00:00 Pulse 99 07/28/23 04:00 Resp 16 07/28/23 04:00 BP 120/73 07/28/23 04:00 Pulse Ox 93 L 07/28/23 04:00 FiO2 Intake & Output 07/27/23 07/28/23 07/28/23 18:59 06:59 18:59 Intake Total 64.154 Output Total 800 Balance 64.154 -800 Weight 77.111 kg Intake: Intake, IV Titration 64.154 Amount Heparin Sod,Pork in 0.45% 64.154 NaCl 25,000 unit In 0.45 % NaCl 1 250ml.bag @ 12 UNITS/KG/HR 9.253 mls/hr IV .Q24H [facility] Rx#: [id number] Output: Urine 800 Other: Voiding Method External Catheter External Catheter # Bowel Movements 1 - Labs CBC & Chem 7: 07/28/23 07:35 07/28/23 07:35 Labs: Abnormal Lab Results - Last 24 Hours (Table) 07/27/23 07/27/23 07/27/23 Range/Units 09:56 11:15 11:21 APTT 37.4 H (22.0-30.0) sec D-Dimer 25.05 H (<0.60) mg/L FEU Phosphorus 4.7 H (2.5-4.5) mg/dL 07/27/23 Range/Units 18:28 APTT 47.1 H (22.0-30.0) sec D-Dimer (<0.60) mg/L FEU Phosphorus (2.5-4.5) mg/dL Microbiology - Last 24 Hours (Table) 07/27/23 01:45 Blood Culture Gram Stain - Preliminary Blood 07/27/23 01:30 Blood Culture Gram Stain - Preliminary Blood
--- NOTE | 2023-07-28 12:06 | P.PN ---
Subjective Patient is seen for follow-up for chronic kidney disease and recent dialysis dependent acute kidney injury. Hemodialysis has been on hold for about 1 week now. Serum creatinine increased to 2.9 from 2.6 yesterday. Patient states she has been voiding. She has an external catheter. Heart rate staying in the 90s. No significant complaints today. Objective - Vital Signs Vital signs: Vital Signs Temp 97.6 F 07/28/23 00:00 Pulse 95 07/28/23 11:32 Resp 16 07/28/23 11:32 BP 116/63 07/28/23 11:32 Pulse Ox 95 07/28/23 11:32 FiO2 Intake & Output 07/27/23 07/28/23 07/28/23 18:59 06:59 18:59 Intake Total 64.154 305.846 Output Total 800 Balance 64.154 -800 305.846 Weight 77.111 kg Intake: Intake, IV Titration 64.154 185.846 Amount Heparin Sod,Pork in 0.45% 64.154 185.846 NaCl 25,000 unit In 0.45 % NaCl 1 250ml.bag @ 12 UNITS/KG/HR 9.253 mls/hr IV .Q24H [facility] Rx#: [id number] Oral 120 Output: Urine 800 Other: Voiding Method External Catheter External Catheter External Catheter # Bowel Movements 1 - Exam Patient is awake, comfortable, no acute distress Alert oriented 3 Examination of the heart S1 and S2 Examination of the lungs bilateral breath sounds are heard Abdomen is soft nontender Examination lower extremities shows left leg with no significant edema, right leg is in brace - Labs CBC & Chem 7: 07/28/23 07:35 07/28/23 07:35 Labs: Abnormal Lab Results - Last 24 Hours (Table) 07/27/23 07/27/23 07/27/23 Range/Units 11:15 11:21 18:28 WBC (3.8-10.6) k/uL RBC (3.80-5.40) m/uL Hgb (11.4-16.0) gm/dL Hct (34.0-46.0) % MCV (80.0-100.0) fL Neutrophils # (1.3-7.7) k/uL Lymphocytes # (1.0-4.8) k/uL APTT 37.4 H 47.1 H (22.0-30.0) sec Sodium (137-145) mmol/L Carbon Dioxide (22-30) mmol/L BUN (7-17) mg/dL Creatinine (0.52-1.04) mg/dL Glucose (74-99) mg/dL Phosphorus 4.7 H (2.5-4.5) mg/dL Albumin (3.5-5.0) g/dL 07/28/23 07/28/23 Range/Units 07:35 07:35 WBC 19.6 H (3.8-10.6) k/uL RBC 2.73 L (3.80-5.40) m/uL Hgb 8.8 L (11.4-16.0) gm/dL Hct 28.1 L (34.0-46.0) % MCV 102.9 H (80.0-100.0) fL Neutrophils # 18.0 H (1.3-7.7) k/uL Lymphocytes # 0.6 L (1.0-4.8) k/uL APTT (22.0-30.0) sec Sodium 135 L (137-145) mmol/L Carbon Dioxide 17 L (22-30) mmol/L BUN 75 H (7-17) mg/dL Creatinine 2.93 H (0.52-1.04) mg/dL Glucose 139 H (74-99) mg/dL Phosphorus (2.5-4.5) mg/dL Albumin 2.9 L (3.5-5.0) g/dL Microbiology - Last 24 Hours (Table) 07/27/23 01:45 Blood Culture Gram Stain - Preliminary Blood Blood Culture - Preliminary Presumptive Staph aureus 07/27/23 01:30 Blood Culture Gram Stain - Preliminary Blood Blood Culture - Preliminary Presumptive Staph aureus Assessment and Plan Assessment: 1. Acute kidney injury ATN from last hospitalization secondary to rhabdo myolysis and severe sepsis, currently nonoliguric. Patient was hemodialysis dependent however hemodialysis has been on hold since 07/22/2023. Serum creatinine increased slightly to 2.9 today. We will continue to hold off on dialysis. Continue with current dose of torsemide. 2. Metabolic acidosis associated with renal failure 3. Elevated troponin been followed by cardiology 4. Mild volume overload Plan: Continue to hold dialysis. Continue with current dose of torsemide. Repeat labs in 3-4 days as outpatient and consider decreasing torsemide based on renal profile. Add oral sodium bicarb
[2023-07-28] MEDS: SEVELAMER 800 MG TAB PO SCH ×2 (13:01→17:02)
--- NOTE | 2023-07-28 14:43 | P.PN ---
Subjective Progress Note Date: 07/28/23 Principal diagnosis: MSSA bacteremia Patient is a 82-year-old female with a past medical history significant for hypertension hyperlipidemia history of chronic lower extremity venous stasis ulcer with recent admission to the hospital have E. coli bacteremia patient did develop ATN requiring hemodialysis patient was subsequently stabilized and transferred to local intermediate for rehabilitation , patient did have improvement her kidney function and did not require any further dialysis however the patient continued to have right groin dialysis catheter no presenting to the hospital with weakness tachycardia and did have a positive blood culture with MSSA. On today's evaluation that is 07/28/2023, the patient remains to be afebrile, , the patient is breathing comfortably on room air , the patient denies chest pain shortness of breath or cough, patient denies nausea / vomiting and no abdominal pain , no diarrhea reported. Patient did have white count of 20.6, creatinine is 2.93, blood culture with MSSA Objective - Vital Signs Vital signs: Vital Signs Temp 97.6 F 07/28/23 00:00 Pulse 95 07/28/23 11:32 Resp 16 07/28/23 11:32 BP 116/63 07/28/23 11:32 Pulse Ox 95 07/28/23 11:32 FiO2 Intake & Output 07/27/23 07/28/23 07/28/23 18:59 06:59 18:59 Intake Total 64.154 305.846 Output Total 800 Balance 64.154 -800 305.846 Weight 77.111 kg Intake: Intake, IV Titration 64.154 185.846 Amount Heparin Sod,Pork in 0.45% 64.154 185.846 NaCl 25,000 unit In 0.45 % NaCl 1 250ml.bag @ 12 UNITS/KG/HR 9.253 mls/hr IV .Q24H [facility] Rx#: [id number] Oral 120 Output: Urine 800 Other: Voiding Method External Catheter External Catheter External Catheter # Bowel Movements 1 - Exam GENERAL DESCRIPTION: An elderly female lying in bed in no distress RESPIRATORY SYSTEM: Unlabored breathing , decreased breath sounds at bases HEART: S1 S2 regular rate and rhythm , ABDOMEN: Soft , no tenderness EXTREMITIES: Right lower extremity wound base is clean no surrounding redness - Labs CBC & Chem 7: 07/28/23 07:35 07/28/23 07:35 Labs: Abnormal Lab Results - Last 24 Hours (Table) 07/27/23 07/28/23 07/28/23 Range/Units 18:28 07:35 07:35 WBC 19.6 H (3.8-10.6) k/uL RBC 2.73 L (3.80-5.40) m/uL Hgb 8.8 L (11.4-16.0) gm/dL Hct 28.1 L (34.0-46.0) % MCV 102.9 H (80.0-100.0) fL Neutrophils # 18.0 H (1.3-7.7) k/uL Lymphocytes # 0.6 L (1.0-4.8) k/uL APTT 47.1 H (22.0-30.0) sec Sodium 135 L (137-145) mmol/L Carbon Dioxide 17 L (22-30) mmol/L BUN 75 H (7-17) mg/dL Creatinine 2.93 H (0.52-1.04) mg/dL Glucose 139 H (74-99) mg/dL Albumin 2.9 L (3.5-5.0) g/dL Microbiology - Last 24 Hours (Table) 07/27/23 01:45 Blood Culture Gram Stain - Preliminary Blood Blood Culture - Preliminary Presumptive Staph aureus 07/27/23 01:30 Blood Culture Gram Stain - Preliminary Blood Blood Culture - Preliminary Presumptive Staph aureus Assessment and Plan (1) Cellulitis Current Visit: Yes Status: Acute Code(s): L03.90 - CELLULITIS, UNSPECIFIED SNOMED Code(s): 508878265 (2) Leukocytosis Current Visit: Yes Status: Acute Code(s): D72.829 - ELEVATED WHITE BLOOD CELL COUNT, UNSPECIFIED SNOMED Code(s): 952246968 (3) Stage II pressure ulcer of left buttock Current Visit: Yes Status: Acute Code(s): L89.322 - PRESSURE ULCER OF LEFT BUTTOCK, STAGE 2 SNOMED Code(s): 74556863017401 (4) Stage II pressure ulcer of left heel Current Visit: Yes Status: Acute Code(s): L89.622 - PRESSURE ULCER OF LEFT HEEL, STAGE 2 SNOMED Code(s): 05376789887359 (5) Stage II pressure ulcer of right buttock Current Visit: Yes Status: Acute Code(s): L89.312 - PRESSURE ULCER OF RIGHT BUTTOCK, STAGE 2 SNOMED Code(s): 27512509985620 (6) MSSA bacteremia Current Visit: Yes Status: Acute Code(s): R78.81 - BACTEREMIA; B95.61 - METHICILLIN SUSCEP STAPH INFCT CAUSING DIS CLASSD [id number] SNOMED Code(s): 178283994 Plan: 1patient presented to hospital with tachycardia patient did have a low-grade fever and elevated white count source gluteal cellulitis with excoriation to the gluteal area versus dialysis catheter infection as the patient right lower extremity wound is healing well patient abdominal was soft on clinical examination and no clinical suspicious for pneumonia 2-right lower extremity wound care with a dry Aquacel dressing and Daniel wrap for compression 3-we will apply zinc to the excoriated skin to the bilateral gluteal and sacral area keep the area of the pressure 4the patient did have positive blood culture with MSSA high clinical suspicious for dialysis catheter infection of which should be removed and tip sent for the culture for which vascular surgery has been consulted. We will keep the patient on cefazolin blood cultures will be repeated document clearance of bacteremia Dictation was produced using [employer] dictation software. please excuse any grammatical, word or spelling errors. Time with Patient: Less than 30
[2023-07-28] MEDS ORDERED: LIDOCAINE 1% INJ 10MG/ML (20 ML MDV) SQ ONE (15:28)
--- NOTE | 2023-07-28 15:32 | P.PN ---
Subjective Progress Note Date: 07/28/23 This is an 82-year-old female patient with an extensive medical history who presented to the ER with concerns of atrial flutter with RVR and rash. Patient remains with left femoral dialysis port. Concerns of possible ALLERGIC reaction due to antibiotics patient was given Benadryl and Solu-Medrol. Patient is a poor historian unable to recall recent events. Past medical history includes hyperlipidemia hypertension, end-stage renal disease requiring hemodialysis during previous hospitalization, osteoarthritis, GERD. Chest x-ray completed showing vascular congestion. EKG completed showing sinus tachycardia possible atrial flutter rate 144. White blood cell elevated 21.4, creatinine 2.63, bun 5 4. BNP 9640. Troponin 0.404, 0.7 696 and 1.360. Wound noted to left lower extremity. Patient was started on heparin for elevated troponins and Cardizem. Patient started on IV vancomycin. 2-D echo ordered. Unclear patient has been receiving hemodialysis. Attempting to obtain medical records. Cardiology, nephrology infectious disease and wound care service is consulted. Blood culture ordered. Repeat labs will be ordered. At this time patient is resting comfortably in bed. Current vital signs temp 98.5, heart rate 108, respiratory rate 20, blood pressure 131/72 with a pulse ox 93% on room air On 07/28/2023 patient was seen and examined on the medical floor she is alert and oriented 3 in no apparent distress, she is complaining of severe pain in the lower extremity especially at the time of dressing change, she is also complaining of fatigue and generalized weakness, otherwise she denies any complaints there is no fever or chills no headache or dizziness no chest pain no shortness of breath no cough no nausea or vomiting no abdominal pain no diarrhea no burning with urination no frequency or urgency and no hematuria. Objective - Vital Signs Vital signs: Vital Signs Temp 97.6 F 07/28/23 00:00 Pulse 95 07/28/23 11:32 Resp 16 07/28/23 11:32 BP 116/63 07/28/23 11:32 Pulse Ox 95 07/28/23 11:32 FiO2 Intake & Output 07/27/23 07/28/23 07/28/23 18:59 06:59 18:59 Intake Total 64.154 305.846 Output Total 800 Balance 64.154 -800 305.846 Weight 77.111 kg Intake: Intake, IV Titration 64.154 185.846 Amount Heparin Sod,Pork in 0.45% 64.154 185.846 NaCl 25,000 unit In 0.45 % NaCl 1 250ml.bag @ 12 UNITS/KG/HR 9.253 mls/hr IV .Q24H [facility] Rx#: [id number] Oral 120 Output: Urine 800 Other: Voiding Method External Catheter External Catheter External Catheter # Bowel Movements 1 - Exam Head normocephalic Neck supple Lungs diminished bilaterally Heart regular rate and rhythm S1-S2, no rub or gallop Abdomen is soft nontender nondistended positive bowel sounds no hepatosplenomegaly Extremities multiple wounds to lower extremities Neuro alert and orientated to 3 - Labs CBC & Chem 7: 07/28/23 07:35 07/28/23 07:35 Labs: Abnormal Lab Results - Last 24 Hours (Table) 07/27/23 07/28/23 07/28/23 Range/Units 18:28 07:35 07:35 WBC 19.6 H (3.8-10.6) k/uL RBC 2.73 L (3.80-5.40) m/uL Hgb 8.8 L (11.4-16.0) gm/dL Hct 28.1 L (34.0-46.0) % MCV 102.9 H (80.0-100.0) fL Neutrophils # 18.0 H (1.3-7.7) k/uL Lymphocytes # 0.6 L (1.0-4.8) k/uL APTT 47.1 H (22.0-30.0) sec Sodium 135 L (137-145) mmol/L Carbon Dioxide 17 L (22-30) mmol/L BUN 75 H (7-17) mg/dL Creatinine 2.93 H (0.52-1.04) mg/dL Glucose 139 H (74-99) mg/dL Albumin 2.9 L (3.5-5.0) g/dL Microbiology - Last 24 Hours (Table) 07/27/23 01:45 Blood Culture Gram Stain - Preliminary Blood Blood Culture - Preliminary Presumptive Staph aureus 07/27/23 01:30 Blood Culture Gram Stain - Preliminary Blood Blood Culture - Preliminary Presumptive Staph aureus Assessment and Plan Assessment: 1. Atrial flutter with RVR 2. Possible ALLERGIC reaction 3. Right lower Cellulitis with multiple wounds 4. Acute renal failure patient was started on hemodialysis during previous admission right femoral dialysis catheter in place. Unclear if patient is still receiving hemodialysis F facility attempting to obtain medical records. Nephrology services consulted 5. Elevated troponins 6. History of recent admission following fall with rhabdomyolysis 7. Recent urinary tract infection with E. coli bacteremia 8. Recent treatment for suspected C. diff 9. History of lateral prosthetic lateral condyle fracture of the distal femur DVT prophylaxis heparin drip. GI prophylaxis Protonix Cardiology, nephrology, infectious disease and wound care service is consulted Patient's started on Cardizem drip 2-D echo ordered Maintained on IV vancomycin Repeat labs ordered Blood culture ordered
--- NOTE | 2023-07-28 16:50 | OP ---
OPERATIVE REPORT DATE OF SERVICE : PROCEDURE PERFORMED: Removal of permanent dialysis catheter, left femoral approach. DESCRIPTION OF PROCEDURE: This patient is known to me from the past. The patient had a left femoral vein permanent dialysis catheter. I was called in for removal of the dialysis catheter and tip for culture. Left groin was prepped and draped in sterile manner. 1% lidocaine infiltrated at the exit site of the catheter. A small incision was admitted at the exit site of the catheter, went circumferentially around the cuff. The cuff was from the tissue and the catheter was removed. Incision was closed with 3-0 nylon. A pressure dressing applied. The patient tolerated the procedure well. We have sent the tip for the culture. MMODL / IJN: [id number] /
[2023-07-28] MEDS: SODIUM BICARBONATE TAB 650 MG TAB PO SCH (20:20)
[2023-07-28] MEDS: MONTELUKAST 10 MG TAB PO SCH (20:20)
[2023-07-29] MEDS: HYDROmorphone 0.5 MG/0.5 ML SYRINGE IVP PRN ×2 (05:00→15:31)
[2023-07-29] MEDS: PANTOPRAZOLE 40 MG TABLET PO SCH (06:05)
[2023-07-29] MEDS: ASPIRIN 81 MG PO SCH (09:37)
[2023-07-29] MEDS: ASCORBIC ACID 500 MG TAB PO SCH (09:37)
[2023-07-29] MEDS: SODIUM BICARBONATE TAB 650 MG TAB PO SCH ×2 (09:37→20:08)
[2023-07-29] MEDS: PRAVASTATIN SODIUM 20 MG TAB PO SCH (09:37)
[2023-07-29] MEDS: METOPROLOL TARTRATE 50 MG TAB PO SCH ×2 (09:37→20:08)
[2023-07-29] MEDS: FLUoxetine HCL 20 MG CAP PO SCH (09:37)
[2023-07-29] MEDS: HYDROcodone/APAP 7.5-325MG 1 EACH TAB PO PRN ×2 (09:37→23:58)
[2023-07-29] MEDS: TORSEMIDE 20 MG TAB PO SCH (09:38)
[2023-07-29] MEDS: CHOLESTYRAMINE (WITH SUGAR) 4 GM PACKET PO SCH ×2 (09:39→20:08)
[2023-07-29] MEDS: HYDROPHILIC CREAM 180 GM TUBE TOPICAL SCH (09:44)
[2023-07-29 09:46] LABS: Basophils # (A) 0.1 k/uL (0-0.2); Basophils % (A) 0 %; Eosinophils % (A) 0 %; HCT 27.5 % (34.0-46.0); HGB 8.5 gm/dL (11.4-16.0); Hypochromasia Moderate; Lymphocytes # (A) 0.7 k/uL (1.0-4.8); Lymphocytes % (A) 4 %; MCH 32.5 pg (25.0-35.0); MCHC 31.1 g/dL (31.0-37.0); MCV 104.5 fL (80.0-100.0); Macrocytosis Moderate; Mean Platelet Volume 9.5; Monocytes # (A) 0.9 k/uL (0-1.0); Monocytes % (A) 5 %; Neutrophils # (A) 16.7 k/uL (1.3-7.7); Neutrophils % (A) 89 %; Platelet Count 211 k/uL (150-450); RBC 2.63 m/uL (3.80-5.40); RDW 14.5 % (11.5-15.5); WBC 18.8 k/uL (3.8-10.6)
--- NOTE | 2023-07-29 09:57 | P.PN ---
Subjective Progress Note Date: 07/29/23 This is an 82-year-old female patient with an extensive medical history who presented to the ER with concerns of atrial flutter with RVR and rash. Patient remains with left femoral dialysis port. Concerns of possible ALLERGIC reaction due to antibiotics patient was given Benadryl and Solu-Medrol. Patient is a poor historian unable to recall recent events. Past medical history includes hyperlipidemia hypertension, end-stage renal disease requiring hemodialysis during previous hospitalization, osteoarthritis, GERD. Chest x-ray completed showing vascular congestion. EKG completed showing sinus tachycardia possible atrial flutter rate 144. White blood cell elevated 21.4, creatinine 2.63, bun 54. BNP 9640. Troponin 0.404, 0.7 696 and 1.360. Wound noted to left lower extremity. Patient was started on heparin for elevated troponins and Cardizem. Patient started on IV vancomycin. 2-D echo ordered. Unclear patient has been receiving hemodialysis. Attempting to obtain medical records. Cardiology, nephrology infectious disease and wound care service is consulted. Blood culture ordered. Repeat labs will be ordered. At this time patient is resting comfortably in bed. Current vital signs temp 98.5, heart rate 108, respiratory rate 20, blood pressure 131/72 with a pulse ox 93% on room air On 07/28/2023 patient was seen and examined on the medical floor she is alert and oriented 3 in no apparent distress, she is complaining of severe pain in the lower extremity especially at the time of dressing change, she is also complaining of fatigue and generalized weakness, otherwise she denies any complaints there is no fever or chills no headache or dizziness no chest pain no shortness of breath no cough no nausea or vomiting no abdominal pain no diarrhea no burning with urination no frequency or urgency and no hematuria. On 07/29/2023 patient is alert and oriented 3. Patient had hemodialysis cath removed with tip culture for source of infection. Blood cultures showing p resumptive staph aureus. Infectious disease are following. Patient remains on IV antibiotic. White blood cell is trending down 18.8. Current vital signs temp 97.4, heart rate 87, respiratory rate 18, blood pressure 117/74 with a pulse ox 97% on room air Objective - Vital Signs Vital signs: Vital Signs Temp 97.4 F L 07/29/23 09:49 Pulse 87 07/29/23 09:49 Resp 18 09/29/23 09:49 BP 117/74 07/29/23 09:49 Pulse Ox 97 07/29/23 09:49 FiO2 Intake & Output 07/28/23 07/29/23 07/29/23 18:59 06:59 18:59 Intake Total 305.846 246 Output Total 0 700 Balance 305.846 -700 246 Intake: IV 10 Invasive Line 3 10 Intake, IV Titration 185.846 Amount Heparin Sod,Pork in 0.45% 185.846 NaCl 25,000 unit In 0.45 % NaCl 1 250ml.bag @ 12 UNITS/KG/HR 9.253 mls/hr IV .Q24H [facility] Rx#: [id number] Oral 120 236 Output: Urine 0 700 Other: Voiding Method External Catheter External Catheter - Exam Head normocephalic Neck supple Lungs diminished bilaterally Heart regular rate and rhythm S1-S2, no rub or gallop Abdomen is soft nontender nondistended positive bowel sounds no hepatosplenomegaly Extremities multiple wounds to lower extremities Neuro alert and orientated to 3 - Labs CBC & Chem 7: 07/29/23 07:34 07/28/23 07:35 Labs: Abnormal Lab Results - Last 24 Hours (Table) 07/28/23 07/29/23 Range/Units 17:31 07:34 WBC 18.8 H (3.8-10.6) k/uL RBC 2.63 L (3.80-5.40) m/uL Hgb 8.5 L (11.4-16.0) gm/dL Hct 27.5 L (34.0-46.0) % MCV 104.5 H (80.0-100.0) fL Neutrophils # 16.7 H (1.3-7.7) k/uL Lymphocytes # 0.7 L (1.0-4.8) k/uL APTT 20.9 L (22.0-30.0) sec Microbiology - Last 24 Hours (Table) 07/27/23 01:45 Blood Culture Gram Stain - Preliminary Blood Blood Culture - Preliminary Presumptive Staph aureus 07/27/23 01:30 Blood Culture Gram Stain - Preliminary Blood Blood Culture - Preliminary Presumptive Staph aureus Assessment and Plan Assessment: 1. Atrial flutter with RVR 2. Possible ALLERGIC reaction 3. Right lower Cellulitis with multiple wounds with sepsis noted with positive blood culture 4. Acute renal failure patient was started on hemodialysis during previous admission right femoral dialysis catheter in place. Unclear if patient is still receiving hemodialysis F facility attempting to obtain medical records. Nephrology services consulted 5. Elevated troponins 6. History of recent admission following fall with rhabdomyolysis 7. Recent urinary tract infection with E. coli bacteremia 8. Recent treatment for suspected C. diff 9. History of lateral prosthetic lateral condyle fracture of the distal femur DVT prophylaxis heparin drip. GI prophylaxis Protonix Cardiology, nephrology, infectious disease and wound care service is consulted 2-D echo ordered Maintained on IV antibiotics Repeat labs ordered Blood culture ordered
[2023-07-29 10:26] LABS: ALT 11 U/L (4-34); AST 25 U/L (14-36); African American GFR (CKD) 17 (>60 ml/min/1.73 sqM); Albumin 2.8 g/dL (3.5-5.0); Alkaline Phosphatase 84 U/L (38-126); Anion Gap 15 mmol/L; Blood Urea Nitrogen 93 mg/dL (7-17); Calcium 8.4 mg/dL (8.4-10.2); Carbon Dioxide 20 mmol/L (22-30); Chloride 101 mmol/L (98-107); Glucose 112 mg/dL (74-99); Non-African American GFR(CKD) 15 (>60 ml/min/1.73 sqM); Potassium 4.1 mmol/L (3.5-5.1); Sodium 136 mmol/L (137-145); Total Bilirubin 0.3 mg/dL (0.2-1.3); Total Protein 5.9 g/dL (6.3-8.2)
[2023-07-29] MEDS: SEVELAMER 800 MG TAB PO SCH ×2 (11:22→17:11)
--- NOTE | 2023-07-29 11:44 | P.PN ---
Subjective Progress Note Date: 07/29/23 Principal diagnosis: MSSA bacteremia Patient is a 82-year-old female with a past medical history significant for hypertension hyperlipidemia history of chronic lower extremity venous stasis ulcer with recent admission to the hospital have E. coli bacteremia patient did develop ATN requiring hemodialysis patient was subsequently stabilized and transferred to local [place] [facility] , patient did have improvement her kidney function and did not require any further dialysis however the patient continued to have right groin dialysis catheter no presenting to the hospital with weakness tachycardia and did have a positive blood culture with MSSA. Patient did have a mole of the right groin dialysis catheter by vascular surgery on 07/28/2023 On today's evaluation that is 07/29/2023, the patient continues to be afebrile, , the patient is breathing comfortably on room air , the patient denies chest pain shortness or cough, patient denies nausea / vomiting and no diarrhea, denies having any abdominal pain Patient did have white count is down to 18.8, creatinine is 2.79 blood cultures with MSSA Objective - Vital Signs Vital signs: Vital Signs Temp 97.6 F 07/29/23 11:25 Pulse 69 07/29/23 11:25 Resp 16 07/29/23 11:25 BP 115/72 07/29/23 11:25 Pulse Ox 96 07/29/23 11:25 FiO2 Intake & Output 07/28/23 07/29/23 07/29/23 18:59 06:59 18:59 Intake Total 305.846 246 Output Total 0 700 Balance 305.846 -700 246 Intake: IV 10 Invasive Line 3 10 Intake, IV Titration 185.846 Amount Heparin Sod,Pork in 0.45% 185.846 NaCl 25,000 unit In 0.45 % NaCl 1 250ml.bag @ 12 UNITS/KG/HR 9.253 mls/hr IV .Q24H [facility] Rx#: [id number] Oral 120 236 Output: Urine 0 700 Other: Voiding Method External Catheter External Catheter External Catheter - Exam GENERAL DESCRIPTION: An elderly female lying in bed in no distress RESPIRATORY SYSTEM: Unlabored breathing , decreased breath sounds at bases HEART: S1 S2 regular rate and rhythm , ABDOMEN: Soft , no tenderness EXTREMITIES: Right lower extremity wound base is clean no surrounding redness - Labs CBC & Chem 7: 07/29/23 07:34 07/29/23 07:34 Labs: Abnormal Lab Results - Last 24 Hours (Table) 07/28/23 07/29/23 07/29/23 Range/Units 17:31 07:34 07:34 WBC 18.8 H (3.8-10.6) k/uL RBC 2.63 L (3.80-5.40) m/uL Hgb 8.5 L (11.4-16.0) gm/dL Hct 27.5 L (34.0-46.0) % MCV 104.5 H (80.0-100.0) fL Neutrophils # 16.7 H (1.3-7.7) k/uL Lymphocytes # 0.7 L (1.0-4.8) k/uL APTT 20.9 L (22.0-30.0) sec Sodium 136 L (137-145) mmol/L Carbon Dioxide 20 L (22-30) mmol/L BUN 93 H (7-17) mg/dL Creatinine 2.79 H (0.52-1.04) mg/dL Glucose 112 H (74-99) mg/dL Total Protein 5.9 L (6.3-8.2) g/dL Albumin 2.8 L (3.5-5.0) g/dL Microbiology - Last 24 Hours (Table) 07/27/23 01:45 Blood Culture Gram Stain - Preliminary Blood Blood Culture - Preliminary Presumptive Staph aureus 07/27/23 01:30 Blood Culture Gram Stain - Preliminary Blood Blood Culture - Preliminary Presumptive Staph aureus Assessment and Plan (1) Cellulitis Current Visit: Yes Status: Acute Code(s): L03.90 - CELLULITIS, UNSPECIFIED SNOMED Code(s): 093276039 (2) Leukocytosis Current Visit: Yes Status: Acute Code(s): D72.829 - ELEVATED WHITE BLOOD CELL COUNT, UNSPECIFIED SNOMED Code(s): 612262201 (3) Stage II pressure ulcer of left buttock Current Visit: Yes Status: Acute Code(s): L89.322 - PRESSURE ULCER OF LEFT BUTTOCK, STAGE 2 SNOMED Code(s): 47666919047511 (4) Stage II pressure ulcer of left heel Current Visit: Yes Status: Acute Code(s): L89.622 - PRESSURE ULCER OF LEFT HEEL, STAGE 2 SNOMED Code(s): 91745210595570 (5) Stage II pressure ulcer of right buttock Current Visit: Yes Status: Acute Code(s): L89.312 - PRESSURE ULCER OF RIGHT BUTTOCK, STAGE 2 SNOMED Code(s): 61433209292223 (6) MSSA bacteremia Current Visit: Yes Status: Acute Code(s): R78.81 - BACTEREMIA; B95.61 - METHICILLIN SUSCEP STAPH INFCT CAUSING DIS CLASSD ELSWHR SNOMED Code(s): 124730893 Plan: 1patient presented to hospital with tachycardia patient did have a low-grade fever and elevated white count and MSSA bacteremia source is likely dialysis catheter infection which has been discontinued 2-right lower extremity wound care with a dry Aquacel dressing and Daniel wrap for compression 3-we will apply zinc to the excoriated skin to the bilateral gluteal and sacral area keep the area of the pressure 4 blood culture had been repeated document clearance of bacteremia 5. We will keep the patient on cefazolin and monitor clinical course closely Dictation was produced using [employer] dictation software. please excuse any grammatical, word or spelling errors. Time with Patient: Less than 30
[2023-07-29] MEDS: CALCIUM CARBONATE 500 MG CHEWABLE PO PRN (11:56)
[2023-07-29 12:26] VITALS: BMI 31.1
[2023-07-29] MEDS: NYSTATIN 100,000 UNIT/ML SUSP 500,000 UNIT/5 ML CUP PO SCH ×3 (14:53→20:40)
--- NOTE | 2023-07-29 15:09 | P.PN ---
Subjective Patient is seen for follow-up for chronic kidney disease and recent dialysis dependent acute kidney injury. Hemodialysis has been on hold for about 1 week now. Serum creatinine increased to 2.9 yesterday but is down to 2.7 today.. Patient states she has been voiding. She has an external catheter. Blood culture came back positive for gm positive cocci, staph Aureus. Left femoral permcath removed yesterday. Maintained on cefazolin. Objective - Vital Signs Vital signs: Vital Signs Temp 97.6 F 07/29/23 11:25 Pulse 69 07/29/23 11:25 Resp 16 07/29/23 11:25 BP 115/72 07/29/23 11:25 Pulse Ox 96 07/29/23 11:25 FiO2 Intake & Output 07/28/23 07/29/23 07/29/23 18:59 06:59 18:59 Intake Total 305.846 246 Output Total 0 700 150 Balance 305.846 -700 96 Weight 77.111 kg Intake: IV 10 Invasive Line 3 10 Intake, IV Titration 185.846 Amount Heparin Sod,Pork in 0.45% 185.846 NaCl 25,000 unit In 0.45 % NaCl 1 250ml.bag @ 12 UNITS/KG/HR 9.253 mls/hr IV .Q24H [facility] Rx#: [id number] Oral 120 236 Output: Urine 0 700 150 Other: Voiding Method External Catheter External Catheter External Catheter - Exam Patient is awake, comfortable, no acute distress Alert oriented 3 Examination of the heart S1 and S2 Examination of the lungs bilateral breath sounds are heard Abdomen is soft nontender Examination lower extremities shows left leg with no significant edema, right leg is in brace - Labs CBC & Chem 7: 07/29/23 07:34 07/29/23 07:34 Labs: Abnormal Lab Results - Last 24 Hours (Table) 07/28/23 07/29/23 07/29/23 Range/Units 17:31 07:34 07:34 WBC 18.8 H (3.8-10.6) k/uL RBC 2.63 L (3.80-5.40) m/uL Hgb 8.5 L (11.4-16.0) gm/dL Hct 27.5 L (34.0-46.0) % MCV 104.5 H (80.0-100.0) fL Neutrophils # 16.7 H (1.3-7.7) k/uL Lymphocytes # 0.7 L (1.0-4.8) k/uL APTT 20.9 L (22.0-30.0) sec Sodium 136 L (137-145) mmol/L Carbon Dioxide 20 L (22-30) mmol/L BUN 93 H (7-17) mg/dL Creatinine 2.79 H (0.52-1.04) mg/dL Glucose 112 H (74-99) mg/dL Total Protein 5.9 L (6.3-8.2) g/dL Albumin 2.8 L (3.5-5.0) g/dL Microbiology - Last 24 Hours (Table) 07/27/23 01:30 Blood Culture Gram Stain - Final Blood Blood Culture - Final Staphylococcus aureus 07/28/23 07:35 Blood Culture - Preliminary Blood Assessment and Plan Assessment: 1. Acute kidney injury ATN from last hospitalization secondary to rhabdo myolysis and severe sepsis, currently nonoliguric. Patient was hemodialysis dependent however hemodialysis has been on hold since 07/22/2023. Serum creatinine increased slightly to 2.9 but decreased to 2.7 today. We will continue to hold off on dialysis. Continue with current dose of torsemide. Femoral tunneled catheter removed 07/28/23 due to bacteremia, staph aureus. 2. Metabolic acidosis associated with renal failure 3. Elevated troponin been followed by cardiology 4. Mild volume overload 5. Staph Aureus bacteremia most likely related to dialysis catheter, now discontinued. Plan: Continue to hold dialysis. Continue with current dose of torsemide. Continue antibiotics as per ID Continue to avoid nephrotoxic medications.
[2023-07-29 16:22] LABS: Appearance,Urine Cloudy (Clear); Bacteria,Urine Occasional /hpf; Bilirubin,Urine Negative (Negative); Blood,Urine Trace (Negative); Color,Urine Colorless; Glucose,Urine (UA) Negative (Negative); Ketones,Urine Negative (Negative); Leukocyte Esterase,Urine Large (Negative); Mucus,Urine Rare /hpf; Nitrite,Urine Negative (Negative); Protein,Urine Trace (Negative); RBC,Urine 10 /hpf (0-5); Specific Gravity,Urine 1.011 (1.001-1.035); Squamous Epithelial Cell,Urine 1 /hpf (0-4); Transitional Epi Cells,Urine <1 /hpf (0-1); Urobilinogen,Urine <2.0 mg/dL (<2.0); WBC,Urine 81 /hpf (0-5)
[2023-07-29] MEDS: MONTELUKAST 10 MG TAB PO SCH (20:08)
[2023-07-30] MEDS: HYDROmorphone 0.5 MG/0.5 ML SYRINGE IVP PRN ×2 (05:51→17:48)
[2023-07-30] MEDS: PANTOPRAZOLE 40 MG TABLET PO SCH (05:51)
[2023-07-30] MEDS: TORSEMIDE 20 MG TAB PO SCH (08:54)
[2023-07-30] MEDS: PRAVASTATIN SODIUM 20 MG TAB PO SCH (08:54)
[2023-07-30] MEDS: CHOLESTYRAMINE (WITH SUGAR) 4 GM PACKET PO SCH ×2 (08:54→19:51)
[2023-07-30] MEDS: ASPIRIN 81 MG PO SCH (08:54)
[2023-07-30] MEDS: ASCORBIC ACID 500 MG TAB PO SCH (08:54)
[2023-07-30] MEDS: METOPROLOL TARTRATE 50 MG TAB PO SCH ×2 (08:54→19:50)
[2023-07-30] MEDS: FLUoxetine HCL 20 MG CAP PO SCH (08:54)
[2023-07-30] MEDS: SODIUM BICARBONATE TAB 650 MG TAB PO SCH ×2 (08:54→19:50)
[2023-07-30] MEDS: NYSTATIN 100,000 UNIT/ML SUSP 500,000 UNIT/5 ML CUP PO SCH ×4 (08:55→21:30)
[2023-07-30] MEDS: HYDROPHILIC CREAM 180 GM TUBE TOPICAL SCH (08:55)
[2023-07-30] MEDS: HYDROcodone/APAP 7.5-325MG 1 EACH TAB PO PRN ×2 (09:17→16:50)
[2023-07-30] MEDS: CALCIUM CARBONATE 500 MG CHEWABLE PO PRN (09:26)
[2023-07-30 10:04] LABS: ALT 8 U/L (4-34); AST 28 U/L (14-36); African American GFR (CKD) 19 (>60 ml/min/1.73 sqM); Albumin 2.9 g/dL (3.5-5.0); Alkaline Phosphatase 80 U/L (38-126); Anion Gap 16 mmol/L; Calcium 8.6 mg/dL (8.4-10.2); Carbon Dioxide 19 mmol/L (22-30); Chloride 101 mmol/L (98-107); Glucose 112 mg/dL (74-99); Non-African American GFR(CKD) 17 (>60 ml/min/1.73 sqM); Potassium 4.1 mmol/L (3.5-5.1); Sodium 136 mmol/L (137-145); Total Bilirubin 0.4 mg/dL (0.2-1.3); Total Protein 6.2 g/dL (6.3-8.2)
[2023-07-30 10:45] LABS: Blood Urea Nitrogen 108 mg/dL (7-17)
[2023-07-30 10:46] LABS: HCT 29.5 % (34.0-46.0); HGB 9.3 gm/dL (11.4-16.0); Hypochromasia Slight; MCH 32.4 pg (25.0-35.0); MCHC 31.6 g/dL (31.0-37.0); MCV 102.5 fL (80.0-100.0); Macrocytosis Slight; Mean Platelet Volume 10.1; Platelet Count 161 k/uL (150-450); RBC 2.88 m/uL (3.80-5.40); RDW 14.4 % (11.5-15.5); WBC 20.7 k/uL (3.8-10.6)
--- NOTE | 2023-07-30 11:07 | P.PN ---
Subjective Progress Note Date: 07/30/23 This is an 82-year-old female patient with an extensive medical history who presented to the ER with concerns of atrial flutter with RVR and rash. Patient remains with left femoral dialysis port. Concerns of possible ALLERGIC reaction due to antibiotics patient was given Benadryl and Solu-Medrol. Patient is a poor historian unable to recall recent events. Past medical history includes hyperlipidemia hypertension, end-stage renal disease requiring hemodialysis during previous hospitalization, osteoarthritis, GERD. Chest x-ray completed showing vascular congestion. EKG completed showing sinus tachycardia possible atrial flutter rate 144. White blood cell elevated 21.4, creatinine 2.63, bun 5 4. BNP 9640. Troponin 0.404, 0.7 696 and 1.360. Wound noted to left lower extremity. Patient was started on heparin for elevated troponins and Cardizem. Patient started on IV vancomycin. 2-D echo ordered. Unclear patient has been receiving hemodialysis. Attempting to obtain medical records. Cardiology, nephrology infectious disease and wound care service is consulted. Blood culture ordered. Repeat labs will be ordered. At this time patient is resting comfortably in bed. Current vital signs temp 98.5, heart rate 108, respiratory rate 20, blood pressure 131/72 with a pulse ox 93% on room air On 07/28/2023 patient was seen and examined on the medical floor she is alert and oriented 3 in no apparent distress, she is complaining of severe pain in the lower extremity especially at the time of dressing change, she is also complaining of fatigue and generalized weakness, otherwise she denies any complaints there is no fever or chills no headache or dizziness no chest pain no shortness of breath no cough no nausea or vomiting no abdominal pain no diarrhea no burning with urination no frequency or urgency and no hematuria. On 07/29/2023 patient is alert and oriented 3. Patient had hemodialysis cath removed with tip culture for source of infection. Blood cultures showing presumptive staph aureus. Infectious disease are following. Patient remains on IV antibiotic. White blood cell is trending down 18.8. Current vital signs temp 97.4, heart rate 87, respiratory rate 18, blood pressure 117/74 with a pulse ox 97% on room air On 07/30/2023 patient was seen and examined on the telemetry floor she is alert and oriented 3 in no apparent distress, she is complaining of generalized weakness, otherwise she denies any complaints, vital exam reveals a temperature of 98.4 pulse 71 respiration 14 blood pressure 115/67 pulse ox 95% on room air sodium 136 potassium 4.1 chloride 101 CO2 19 BUN 108 creatinine 2.59, patient is improving gradually, PT and OT consult, she remains on IV antibiotics, will follow closely Objective - Vital Signs Vital signs: Vital Signs Temp 98.4 F 07/30/23 03:32 Pulse 71 07/30/23 03:32 Resp 14 07/30/23 03:32 BP 108/57 07/30/23 05:52 Pulse Ox 95 07/30/23 03:32 FiO2 Intake & Output 07/29/23 07/30/23 07/30/23 18:59 06:59 18:59 Intake Total 256 20 Output Total 150 600 Balance 106 -580 Weight 77.111 kg Intake: IV 20 20 Invasive Line 3 20 20 Oral 236 Output: Urine 150 600 Other: Voiding Method External Catheter External Catheter - Exam Head normocephalic Neck supple Lungs diminished bilaterally Heart regular rate and rhythm S1-S2, no rub or gallop Abdomen is soft nontender nondistended positive bowel sounds no hepatosplenomegaly Extremities multiple wounds to lower extremities Neuro alert and orientated to 3 - Labs CBC & Chem 7: 07/29/23 07:34 07/30/23 08:51 Labs: Abnormal Lab Results - Last 24 Hours (Table) 07/29/23 07/29/23 07/29/23 Range/Units 07:34 07:34 15:35 WBC 18.8 H (3.8-10.6) k/uL RBC 2.63 L (3.80-5.40) m/uL Hgb 8.5 L (11.4-16.0) gm/dL Hct 27.5 L (34.0-46.0) % MCV 104.5 H (80.0-100.0) fL Neutrophils # 16.7 H (1.3-7.7) k/uL Lymphocytes # 0.7 L (1.0-4.8) k/uL Sodium 136 L (137-145) mmol/L Carbon Dioxide 20 L (22-30) mmol/L BUN 93 H (7-17) mg/dL Creatinine 2.79 H (0.52-1.04) mg/dL Glucose 112 H (74-99) mg/dL Total Protein 5.9 L (6.3-8.2) g/dL Albumin 2.8 L (3.5-5.0) g/dL Urine Appearance Cloudy H (Clear) Urine Protein Trace H (Negative) Urine Blood Trace H (Negative) Ur Leukocyte Esterase Large H (Negative) Urine RBC 10 H (0-5) /hpf Urine WBC 81 H (0-5) /hpf Urine WBC Clumps Rare H (None) /hpf Urine Bacteria Occasional H (None) /hpf Urine Mucus Rare H (None) /hpf Microbiology - Last 24 Hours (Table) 07/27/23 01:45 Blood Culture Gram Stain - Final Blood Blood Culture - Final Staphylococcus aureus 07/27/23 01:30 Blood Culture Gram Stain - Final Blood Blood Culture - Final Staphylococcus aureus 07/28/23 07:35 Blood Culture - Preliminary Blood Assessment and Plan Assessment: 1. Atrial flutter with RVR 2. Possible ALLERGIC reaction 3. Right lower Cellulitis with multiple wounds 4. Acute renal failure patient was started on hemodialysis during previous ad mission right femoral dialysis catheter in place. Unclear if patient is still receiving hemodialysis F facility attempting to obtain medical records. Nephrology services consulted 5. Elevated troponins 6. History of recent admission following fall with rhabdomyolysis 7. Recent urinary tract infection with E. coli bacteremia 8. Recent treatment for suspected C. diff 9. History of lateral prosthetic lateral condyle fracture of the distal femur DVT prophylaxis heparin drip. GI prophylaxis Protonix Cardiology, nephrology, infectious disease and wound care service is consulted Patient's started on Cardizem drip 2-D echo ordered Maintained on IV vancomycin Repeat labs ordered Blood culture ordered
[2023-07-30] MEDS: ENOXAPARIN 30 MG/0.3 ML SYRINGE SQ SCH (12:01)
[2023-07-30] MEDS: SEVELAMER 800 MG TAB PO SCH ×2 (12:01→17:46)
[2023-07-30] MEDS ORDERED: FLUCONAZOLE 100 MG TAB PO ONE (13:12)
--- NOTE | 2023-07-30 13:13 | P.PN ---
Subjective Progress Note Date: 07/30/23 Principal diagnosis: MSSA bacteremia Patient is a 82-year-old female with a past medical history significant for hypertension hyperlipidemia history of chronic lower extremity venous stasis ulcer with recent admission to the hospital have E. coli bacteremia patient did develop ATN requiring hemodialysis patient was subsequently stabilized and transferred to local alf for rehabilitation , patient did have improvement her kidney function and did not require any further dialysis however the patient continued to have right groin dialysis catheter no presenting to the hospital with weakness tachycardia and did have a positive blood culture with MSSA. Patient did have a mole of the right groin dialysis catheter by vascular surgery on 07/28/2023 On today's evaluation that is 07/30/2023, the patient remains to be afebrile, , the patient is breathing comfortably on room air , the patient denies chest pain and no significant cough, patient denies abdominal pain, nausea or vomiting and no diarrhea has been reported by the nursing staff Patient did have white count is up to 20.7, creatinine is 2.59 blood cultures with MSSA and repeat blood cultures so far negative Objective - Vital Signs Vital signs: Vital Signs Temp 97.5 F L 07/30/23 08:00 Pulse 82 07/30/23 08:00 Resp 14 07/30/23 08:00 BP 106/59 07/30/23 08:00 Pulse Ox 95 07/30/23 08:00 FiO2 Intake & Output 07/29/23 07/30/23 07/30/23 18:59 06:59 18:59 Intake Total 256 20 290 Output Total 150 600 Balance 106 -580 290 Weight 77.111 kg Intake: IV 20 20 Invasive Line 3 20 20 Intake, IV Titration 50 Amount ceFAZolin 2 gm In Sodium 50 Chloride 0.9% 50 ml @ 100 mls/hr IVPB Q12HR [facility] Rx #:[id number] Oral 236 240 Output: Urine 150 600 Other: Voiding Method External Catheter External Catheter External Catheter - Exam GENERAL DESCRIPTION: An elderly female lying in bed in no distress RESPIRATORY SYSTEM: Unlabored breathing , decreased breath sounds at bases HEART: S1 S2 regular rate and rhythm , ABDOMEN: Soft , no tenderness EXTREMITIES: Right lower extremity wound base is clean no surrounding redness - Labs CBC & Chem 7: 07/30/23 08:51 07/30/23 08:51 Labs: Abnormal Lab Results - Last 24 Hours (Table) 07/29/23 07/30/23 07/30/23 Range/Units 15:35 08:51 08:51 WBC 20.7 H (3.8-10.6) k/uL RBC 2.88 L (3.80-5.40) m/uL Hgb 9.3 L (11.4-16.0) gm/dL Hct 29.5 L (34.0-46.0) % MCV 102.5 H (80.0-100.0) fL Sodium 136 L (137-145) mmol/L Carbon Dioxide 19 L (22-30) mmol/L BUN 108 H* (7-17) mg/dL Creatinine 2.59 H (0.52-1.04) mg/dL Glucose 112 H (74-99) mg/dL Total Protein 6.2 L (6.3-8.2) g/dL Albumin 2.9 L (3.5-5.0) g/dL Urine Appearance Cloudy H (Clear) Urine Protein Trace H (Negative) Urine Blood Trace H (Negative) Ur Leukocyte Esterase Large H (Negative) Urine RBC 10 H (0-5) /hpf Urine WBC 81 H (0-5) /hpf Urine WBC Clumps Rare H (None) /hpf Urine Bacteria Occasional H (None) /hpf Urine Mucus Rare H (None) /hpf Microbiology - Last 24 Hours (Table) 07/28/23 07:35 Blood Culture - Preliminary Blood 07/27/23 01:45 Blood Culture Gram Stain - Final Blood Blood Culture - Final Staphylococcus aureus 07/27/23 01:30 Blood Culture Gram Stain - Final Blood Blood Culture - Final Staphylococcus aureus Assessment and Plan (1) Cellulitis Current Visit: Yes Status: Acute Code(s): L03.90 - CELLULITIS, UNSPECIFIED SNOMED Code(s): 624457851 (2) Leukocytosis Current Visit: Yes Status: Acute Code(s): D72.829 - ELEVATED WHITE BLOOD CELL COUNT, UNSPECIFIED SNOMED Code(s): 545096018 (3) Stage II pressure ulcer of left buttock Current Visit: Yes Status: Acute Code(s): L89.322 - PRESSURE ULCER OF LEFT BUTTOCK, STAGE 2 SNOMED Code(s): 61300065409984 (4) Stage II pressure ulcer of left heel Current Visit: Yes Status: Acute Code(s): L89.622 - PRESSURE ULCER OF LEFT HEEL, STAGE 2 SNOMED Code(s): 89557769848207 (5) Stage II pressure ulcer of right buttock Current Visit: Yes Status: Acute Code(s): L89.312 - PRESSURE ULCER OF RIGHT BUTTOCK, STAGE 2 SNOMED Code(s): 83886690930722 (6) MSSA bacteremia Current Visit: Yes Status: Acute Code(s): R78.81 - BACTEREMIA; B95.61 - METHICILLIN SUSCEP STAPH INFCT CAUSING DIS CLASSD ELSWHR SNOMED Code(s): 355432347 Plan: 1patient presented to hospital with tachycardia patient did have a low-grade fever and elevated white count and MSSA bacteremia source is likely dialysis catheter infection which has been discontinued 2-right lower extremity wound care with a dry Aquacel dressing and Daniel wrap for compression 3-we will apply zinc to the excoriated skin to the bilateral gluteal and sacral area keep the area of the pressure 4 blood culture repeated so far negative 5patient to continue with the cefazolin patient did have persistently elevated slight worsening of the white count could be related to the UTI as the patient did have positive UA we will give her a dose of Diflucan and see clinical response Dictation was produced using [employer] dictation software. please excuse any grammatical, word or spelling errors. Time with Patient: Less than 30
[2023-07-30 14:02] LABS: Band Neutrophils % 4 %; Eosinophils # (M) 0.21 k/uL (0-0.7); Lymphocytes # (M) 1.04 k/uL (1.0-4.8); Metamyelocytes # (M) 0.41 k/uL (0); Metamyelocytes % 2 %; Monocytes # (M) 1.24 k/uL (0-1.0); Myelocytes # (M) 0.62 k/uL (0); Myelocytes % 3 %; Neutrophils % (M) 80 %; Nucleated Red Blood Cells 0 /100 WBC (0-0); Total Cells Counted 200
--- NOTE | 2023-07-30 17:02 | P.PN ---
Subjective Progress Note Date: 07/30/23 Follow-up for acute kidney injury. She was on dialysis, currently on hold for a week. Admits making urine. Denies any nausea vomiting diarrhea. Permacath has been removed for gram-positive bacteremia Objective - Vital Signs Vital signs: Vital Signs Temp 97.5 F L 07/30/23 08:00 Pulse 82 07/30/23 08:00 Resp 14 07/30/23 08:00 BP 106/59 07/30/23 08:00 Pulse Ox 95 07/30/23 08:00 FiO2 Intake & Output 07/29/23 07/30/23 07/30/23 18:59 06:59 18:59 Intake Total 256 20 290 Output Total 150 600 Balance 106 -580 290 Weight 77.111 kg Intake: IV 20 20 Invasive Line 3 20 20 Intake, IV Titration 50 Amount ceFAZolin 2 gm In Sodium 50 Chloride 0.9% 50 ml @ 100 mls/hr IVPB Q12HR [facility] Rx #:[id number] Oral 236 240 Output: Urine 150 600 Other: Voiding Method External Catheter External Catheter External Catheter - Exam No acute distress S1-S2 heard Lungs clear No edema - Labs CBC & Chem 7: 07/30/23 08:51 07/30/23 08:51 Labs: Abnormal Lab Results - Last 24 Hours (Table) 07/30/23 07/30/23 Range/Units 08:51 08:51 WBC 20.7 H (3.8-10.6) k/uL RBC 2.88 L (3.80-5.40) m/uL Hgb 9.3 L (11.4-16.0) gm/dL Hct 29.5 L (34.0-46.0) % MCV 102.5 H (80.0-100.0) fL Neutrophils # (Manual) 17.30 H (1.3-7.7) k/uL Monocytes # (Manual) 1.24 H (0-1.0) k/uL Metamyelocytes # (Man) 0.41 H (0) k/uL Myelocytes # (Manual) 0.62 H (0) k/uL Sodium 136 L (137-145) mmol/L Carbon Dioxide 19 L (22-30) mmol/L BUN 108 H* (7-17) mg/dL Creatinine 2.59 H (0.52-1.04) mg/dL Glucose 112 H (74-99) mg/dL Total Protein 6.2 L (6.3-8.2) g/dL Albumin 2.9 L (3.5-5.0) g/dL Microbiology - Last 24 Hours (Table) 07/28/23 07:35 Blood Culture - Preliminary Blood 07/27/23 01:45 Blood Culture Gram Stain - Final Blood Blood Culture - Final Staphylococcus aureus 07/27/23 01:30 Blood Culture Gram Stain - Final Blood Blood Culture - Final Staphylococcus aureus Assessment and Plan Assessment: #1 acute kidney injury secondary to ATN from last hospitalization from rhabdomyolysis and severe sepsis. -Currently nonoliguric and off dialysis. -Baseline creatinine 0.8 MG per DL. #2 staff bacteremia #3 anemia with chronic kidney disease #4 chronic kidney disease stage IIIB with a baseline creatinine around 2.5 MG per DL #5 volume overload, better Plan: #1 renal function stable. Continue to monitor off dialysis. #2 antibiotics as per primary team/infectious disease #3 hold torsemide for now. #4 daily renal labs
[2023-07-30] MEDS: MONTELUKAST 10 MG TAB PO SCH (19:50)
--- NOTE | 2023-07-31 07:59 | P.PN ---
Subjective Progress Note Date: 07/31/23 This is an 82-year-old female patient with an extensive medical history who presented to the ER with concerns of atrial flutter with RVR and rash. Patient remains with left femoral dialysis port. Concerns of possible ALLERGIC reaction due to antibiotics patient was given Benadryl and Solu-Medrol. Patient is a poor historian unable to recall recent events. Past medical history includes hyperlipidemia hypertension, end-stage renal disease requiring hemodialysis during previous hospitalization, osteoarthritis, GERD. Chest x-ray completed showing vascular congestion. EKG completed showing sinus tachycardia possible atrial flutter rate 144. White blood cell elevated 21.4, creatinine 2.63, bun 5 4. BNP 9640. Troponin 0.404, 0.7 696 and 1.360. Wound noted to left lower extremity. Patient was started on heparin for elevated troponins and Cardizem. Patient started on IV vancomycin. 2-D echo ordered. Unclear patient has been receiving hemodialysis. Attempting to obtain medical records. Cardiology, nephrology infectious disease and wound care service is consulted. Blood culture ordered. Repeat labs will be ordered. At this time patient is resting comfortably in bed. Current vital signs temp 98.5, heart rate 108, respiratory rate 20, blood pressure 131/72 with a pulse ox 93% on room air On 07/28/2023 patient was seen and examined on the medical floor she is alert and oriented 3 in no apparent distress, she is complaining of severe pain in the lower extremity especially at the time of dressing change, she is also complaining of fatigue and generalized weakness, otherwise she denies any complaints there is no fever or chills no headache or dizziness no chest pain no shortness of breath no cough no nausea or vomiting no abdominal pain no diarrhea no burning with urination no frequency or urgency and no hematuria. On 07/29/2023 patient is alert and oriented 3. Patient had hemodialysis cath removed with tip culture for source of infection. Blood cultures showing presumptive staph aureus. Infectious disease are following. Patient remains on IV antibiotic. White blood cell is trending down 18.8. Current vital signs temp 97.4, heart rate 87, respiratory rate 18, blood pressure 117/74 with a pulse ox 97% on room air On 07/30/2023 patient was seen and examined on the telemetry floor she is alert and oriented 3 in no apparent distress, she is complaining of generalized weakness, otherwise she denies any complaints, vital exam reveals a temperature of 98.4 pulse 71 respiration 14 blood pressure 115/67 pulse ox 95% on room air sodium 136 potassium 4.1 chloride 101 CO2 19 BUN 108 creatinine 2.59, patient is improving gradually, PT and OT consult, she remains on IV antibiotics, will follow closely On 07/31/2023 patient was seen and examined on the telemetry floor she is alert and oriented 3 in no apparent distress she is still complaining of weakness and complaining of low back pain otherwise she denies any complaints there is no fever or chills no headache or dizziness no chest pain no shortness of breath no cough no nausea or vomiting no abdominal pain no diarrhea and no urinary symptoms. Labs today are still pending, yesterday white blood count was still elevated at 20.7 BUN 108 creatinine 2.59 will continue with current antibiotics infectious disease are following Objective - Vital Signs Vital signs: Vital Signs Temp 97.7 F 07/31/23 02:21 Pulse 68 07/31/23 02:21 Resp 18 07/31/23 02:21 BP 93/52 07/31/23 02:21 Pulse Ox 96 07/31/23 02:21 FiO2 Intake & Output 07/30/23 07/31/23 07/31/23 18:59 06:59 18:59 Intake Total 290 Output Total 800 Balance 290 -800 Intake: Intake, IV Titration 50 Amount ceFAZolin 2 gm In Sodium 50 Chloride 0.9% 50 ml @ 100 mls/hr IVPB Q12HR [facility] Rx #:[id number] Oral 240 Output: Urine 800 Other: Voiding Method External Catheter - Exam Head normocephalic Neck supple Lungs diminished bilaterally Heart regular rate and rhythm S1-S2, no rub or gallop Abdomen is soft nontender nondistended positive bowel sounds no hepatosplenomegaly Extremities multiple wounds to lower extremities Neuro alert and orientated to 3 - Labs CBC & Chem 7: 07/30/23 08:51 07/30/23 08:51 Labs: Abnormal Lab Results - Last 24 Hours (Table) 07/30/23 07/30/23 Range/Units 08:51 08:51 WBC 20.7 H (3.8-10.6) k/uL RBC 2.88 L (3.80-5.40) m/uL Hgb 9.3 L (11.4-16.0) gm/dL Hct 29.5 L (34.0-46.0) % MCV 102.5 H (80.0-100.0) fL Neutrophils # (Manual) 17.30 H (1.3-7.7) k/uL Monocytes # (Manual) 1.24 H (0-1.0) k/uL Metamyelocytes # (Man) 0.41 H (0) k/uL Myelocytes # (Manual) 0.62 H (0) k/uL Sodium 136 L (137-145) mmol/L Carbon Dioxide 19 L (22-30) mmol/L BUN 108 H* (7-17) mg/dL Creatinine 2.59 H (0.52-1.04) mg/dL Glucose 112 H (74-99) mg/dL Total Protein 6.2 L (6.3-8.2) g/dL Albumin 2.9 L (3.5-5.0) g/dL Microbiology - Last 24 Hours (Table) 07/29/23 15:35 Urine Culture - Final Urine,Voided 07/28/23 07:35 Blood Culture - Preliminary Blood Assessment and Plan Assessment: 1. Atrial flutter with RVR 2. Possible ALLERGIC reaction 3. Right lower Cellulitis with multiple wounds 4. Acute renal failure patient was started on hemodialysis during previous admission right femoral dialysis catheter in place. Unclear if patient is still receiving hemodialysis [facility] facility attempting to obtain medical records. Nephrology services consulted 5. Elevated troponins 6. History of recent admission following fall with rhabdomyolysis 7. Recent urinary tract infection with E. coli bacteremia 8. Recent treatment for suspected C. diff 9. History of lateral prosthetic lateral condyle fracture of the distal femur DVT prophylaxis heparin drip. GI prophylaxis Protonix Cardiology, nephrology, infectious disease and wound care service is consulted Patient's started on Cardizem drip 2-D echo ordered Maintained on IV vancomycin Repeat labs ordered Blood culture ordered
[2023-07-31 08:35] LABS: HCT 26.9 % (34.0-46.0); HGB 8.6 gm/dL (11.4-16.0); Hypochromasia Slight; MCH 32.6 pg (25.0-35.0); MCV 101.9 fL (80.0-100.0); Macrocytosis Slight; Mean Platelet Volume 10.1; Platelet Count 154 k/uL (150-450); RBC 2.64 m/uL (3.80-5.40); RDW 14.6 % (11.5-15.5); WBC 22.4 k/uL (3.8-10.6)
[2023-07-31 08:53] LABS: ALT 7 U/L (4-34); AST 20 U/L (14-36); African American GFR (CKD) 16 (>60 ml/min/1.73 sqM); Albumin 2.7 g/dL (3.5-5.0); Albumin/Globulin Ratio 0.9; Alkaline Phosphatase 84 U/L (38-126); Anion Gap 13 mmol/L; Calcium 8.5 mg/dL (8.4-10.2); Carbon Dioxide 25 mmol/L (22-30); Chloride 100 mmol/L (98-107); Glucose 96 mg/dL (74-99); Non-African American GFR(CKD) 14 (>60 ml/min/1.73 sqM); Potassium 3.9 mmol/L (3.5-5.1); Sodium 138 mmol/L (137-145); Total Bilirubin 0.3 mg/dL (0.2-1.3); Total Protein 5.7 g/dL (6.3-8.2)
[2023-07-31 08:56] LABS: Blood Urea Nitrogen 107 mg/dL (7-17)
[2023-07-31] MEDS: METOPROLOL TARTRATE 50 MG TAB PO SCH ×2 (09:24→21:11)
[2023-07-31] MEDS: FLUoxetine HCL 20 MG CAP PO SCH (09:24)
[2023-07-31] MEDS: SODIUM BICARBONATE TAB 650 MG TAB PO SCH ×2 (09:24→21:10)
[2023-07-31] MEDS: PANTOPRAZOLE 40 MG TABLET PO SCH (09:25)
[2023-07-31] MEDS: NYSTATIN 100,000 UNIT/ML SUSP 500,000 UNIT/5 ML CUP PO SCH ×3 (09:25→18:31)
[2023-07-31] MEDS: CHOLESTYRAMINE (WITH SUGAR) 4 GM PACKET PO SCH ×3 (09:25→22:36)
[2023-07-31] MEDS: ENOXAPARIN 30 MG/0.3 ML SYRINGE SQ SCH (09:26)
[2023-07-31] MEDS: ASPIRIN 81 MG PO SCH (09:26)
[2023-07-31] MEDS: ASCORBIC ACID 500 MG TAB PO SCH (09:26)
[2023-07-31] MEDS: HYDROPHILIC CREAM 180 GM TUBE TOPICAL SCH (09:26)
[2023-07-31] MEDS: PRAVASTATIN SODIUM 20 MG TAB PO SCH (09:27)
[2023-07-31] MEDS: ERGOCALCIFEROL 1,250 MCG (50,000 IU) CAPSULE PO SCH (09:27)
[2023-07-31 09:49] LABS: Band Neutrophils % 2 %; Lymphocytes # (M) 2.24 k/uL (1.0-4.8); Metamyelocytes # (M) 0.67 k/uL (0); Metamyelocytes % 3 %; Myelocytes # (M) 1.34 k/uL (0); Myelocytes % 6 %; Neutrophils % (M) 75 %; Nucleated Red Blood Cells 0 /100 WBC (0-0); Promyelocytes # (M) 0.22 k/uL (0); Promyelocytes % 1 %; Total Cells Counted 200
[2023-07-31] MEDS: HYDROmorphone 0.5 MG/0.5 ML SYRINGE IVP PRN (13:03)
[2023-07-31] MEDS: SEVELAMER 800 MG TAB PO SCH ×2 (13:04→18:31)
--- NOTE | 2023-07-31 14:51 | P.PN ---
Subjective Progress Note Date: 07/31/23 Follow-up for acute kidney injury. She was on dialysis, currently on hold for a week. Admits making urine. Denies any nausea vomiting diarrhea. Permacath has been removed for gram-positive bacteremia Objective - Vital Signs Vital signs: Vital Signs Temp 98.8 F 07/31/23 13:03 Pulse 68 07/31/23 13:03 Resp 18 07/31/23 13:03 BP 90/54 07/31/23 13:03 Pulse Ox 96 07/31/23 13:03 FiO2 Intake & Output 07/30/23 07/31/23 07/31/23 18:59 06:59 18:59 Intake Total 290 Output Total 800 Balance 290 -800 Intake: Intake, IV Titration 50 Amount ceFAZolin 2 gm In Sodium 50 Chloride 0.9% 50 ml @ 100 mls/hr IVPB Q12HR [facility] Rx #:[id number] Oral 240 Output: Urine 800 Other: Voiding Method External Catheter External Catheter - Exam No acute distress S1-S2 heard Lungs clear No edema - Labs CBC & Chem 7: 07/31/23 06:36 07/31/23 06:36 Labs: Abnormal Lab Results - Last 24 Hours (Table) 07/31/23 07/31/23 Range/Units 06:36 06:36 WBC 22.4 H (3.8-10.6) k/uL RBC 2.64 L (3.80-5.40) m/uL Hgb 8.6 L (11.4-16.0) gm/dL Hct 26.9 L (34.0-46.0) % MCV 101.9 H (80.0-100.0) fL Neutrophils # (Manual) 17.20 H (1.3-7.7) k/uL Metamyelocytes # (Man) 0.67 H (0) k/uL Myelocytes # (Manual) 1.34 H (0) k/uL Promyelocytes # (Man) 0.22 H (0) k/uL BUN 107 H* (7-17) mg/dL Creatinine 2.94 H (0.52-1.04) mg/dL Total Protein 5.7 L (6.3-8.2) g/dL Albumin 2.7 L (3.5-5.0) g/dL Microbiology - Last 24 Hours (Table) 07/28/23 07:35 Blood Culture Gram Stain - Preliminary Blood Blood Culture - Preliminary 07/29/23 15:35 Urine Culture - Final Urine,Voided Assessment and Plan Assessment: #1 acute kidney injury secondary to ATN from last hospitalization from rhabdomyolysis and severe sepsis. -Currently nonoliguric and off dialysis. -Baseline creatinine 0.8 MG per DL. #2 staff bacteremia #3 anemia with chronic kidney disease #4 chronic kidney disease stage IIIB with a baseline creatinine around 2.5 MG per DL #5 volume overload, better Plan: #1 renal function stable. Continue to monitor off dialysis. #2 antibiotics as per primary team/infectious disease #3 hold torsemide for now. #4 daily renal labs #5 if renal function continues to worsen may need dialysis.
[2023-07-31] MEDS: HYDROcodone/APAP 7.5-325MG 1 EACH TAB PO PRN (18:33)
[2023-07-31] MEDS: MONTELUKAST 10 MG TAB PO SCH (21:10)
[2023-08-01] MEDS: NYSTATIN 100,000 UNIT/ML SUSP 500,000 UNIT/5 ML CUP PO SCH ×5 (00:56→21:57)
[2023-08-01] MEDS: HYDROcodone/APAP 7.5-325MG 1 EACH TAB PO PRN ×2 (06:39→20:34)
--- NOTE | 2023-08-01 08:39 | P.PN ---
Subjective Patient is seen in follow for acute kidney injury. Admits to good urine output. No vomiting or diarrhea. No chest pain or shortness of breath. Vital signs are stable. General: No acute distress. HEENT: Head exam is unremarkable. LUNGS: No audible rhonchi or wheezes. HEART: Rate and Rhythm are regular. ABDOMEN: Nontender. EXTREMITITES: No edema. Lower extremity is wrapped. No drainage. Objective - Vital Signs Vital signs: Vital Signs Temp 98.7 F 08/01/23 02:43 Pulse 77 08/01/23 02:43 Resp 18 08/01/23 02:43 BP 107/65 08/01/23 02:43 Pulse Ox 95 08/01/23 02:43 FiO2 Intake & Output 07/31/23 08/01/23 08/01/23 18:59 06:59 18:59 Intake Total 500 Output Total 500 Balance 0 Intake: Oral 500 Output: Urine 500 Other: Voiding Method External Catheter External Catheter - Labs CBC & Chem 7: 07/31/23 06:36 07/31/23 06:36 Labs: Abnormal Lab Results - Last 24 Hours (Table) 07/31/23 07/31/23 Range/Units 06:36 06:36 WBC 22.4 H (3.8-10.6) k/uL RBC 2.64 L (3.80-5.40) m/uL Hgb 8.6 L (11.4-16.0) gm/dL Hct 26.9 L (34.0-46.0) % MCV 101.9 H (80.0-100.0) fL Neutrophils # (Manual) 17.20 H (1.3-7.7) k/uL Metamyelocytes # (Man) 0.67 H (0) k/uL Myelocytes # (Manual) 1.34 H (0) k/uL Promyelocytes # (Man) 0.22 H (0) k/uL BUN 107 H* (7-17) mg/dL Creatinine 2.94 H (0.52-1.04) mg/dL Total Protein 5.7 L (6.3-8.2) g/dL Albumin 2.7 L (3.5-5.0) g/dL Microbiology - Last 24 Hours (Table) 07/28/23 07:35 Blood Culture Gram Stain - Preliminary Blood Blood Culture - Preliminary Assessment and Plan Plan: Assessment: 1. Acute kidney injury secondary to ATN secondary to severe sepsis and rhabdomyolysis. Patient required hemodialysis but now has been off hemodialysis for over a week. Baseline creatinine prior to acute kidney injury episode was near 0.8. Creatinine this admission has been in the range of 2.6-2.9. Establish new baseline renal function. Nonoliguric. Ultrasound from 06/11/2023 showed no hydronephrosis. 2. Staph aureus bacteremia status post removal of groin dialysis catheter. On antibiotics. 3. Hyperphosphatemia secondary to acute kidney injury maintained on Renvela. Phosphorus level 4.7 dated 07/27/2023. 4. Anemia. Possibly component of chronic kidney disease. 5. Volume overload. Improving with diuresis. 6. Metabolic acidosis secondary to acute kidney injury maintained on oral bicarb. Better. 7. Chronic diastolic CHF with mild to moderate mitral regurgitation. Plan: Encouraged oral intake. Hold off on IV fluids and diuretics. Add Aranesp. Add midodrine. Hold for systolic blood pressure greater than 110. Continue to monitor renal function and urine output.
[2023-08-01] MEDS: CHOLESTYRAMINE (WITH SUGAR) 4 GM PACKET PO SCH ×2 (08:55→20:06)
[2023-08-01] MEDS: PANTOPRAZOLE 40 MG TABLET PO SCH (08:56)
[2023-08-01] MEDS: FLUoxetine HCL 20 MG CAP PO SCH (08:56)
[2023-08-01] MEDS: SODIUM BICARBONATE TAB 650 MG TAB PO SCH ×2 (08:56→20:05)
[2023-08-01] MEDS: ASCORBIC ACID 500 MG TAB PO SCH (08:56)
[2023-08-01] MEDS: ENOXAPARIN 30 MG/0.3 ML SYRINGE SQ SCH (08:56)
[2023-08-01] MEDS: ASPIRIN 81 MG PO SCH (08:56)
[2023-08-01] MEDS: METOPROLOL TARTRATE 50 MG TAB PO SCH ×2 (08:56→20:06)
[2023-08-01] MEDS: PRAVASTATIN SODIUM 20 MG TAB PO SCH (08:57)
[2023-08-01] MEDS: HYDROPHILIC CREAM 180 GM TUBE TOPICAL SCH (08:58)
[2023-08-01] MEDS: DARBEPOETIN ALFA 40 MCG/0.4 ML SYRINGE SQ SCH (09:41)
[2023-08-01] MEDS: HYDROmorphone 0.5 MG/0.5 ML SYRINGE IVP PRN ×2 (09:41→18:05)
[2023-08-01 11:28] LABS: Basophils # (M) 0 X 10*3/uL (0.00-0.10); HCT 28.6 % (37.2-46.3); HGB 8.5 d/dL (12.0-15.0); MCH 30.9 pg (27.0-32.0); MCHC 29.7 d/dL (32.0-37.0); Mean Platelet Volume 12.1 FL (9.5-12.2); NRBC Per 100 WBC 0.03 X 10*3/uL (0.00-0.01); Platelet Count 180 X 10*3/uL (140-440); RBC 2.75 X 10*6/uL (4.10-5.20); RDW 14.7 % (11.5-14.5); WBC 23.93 X 10*3/uL (4.50-10.00)
[2023-08-01 11:35] LABS: Eosinophils # (M) 0.48 X 10*3/uL (0.04-0.35); Macrocytosis (M) 2+; Metamyelocytes % 5 % (0-0); Myelocytes % 2 % (0-0); Neutrophils # (M) 19.38 X 10*3/uL (1.80-7.70); Neutrophils % (M) 81 %
[2023-08-01 11:36] LABS: BUN/Creat Ratio 30.97 Ratio (12.00-20.00); Blood Urea Nitrogen 99.1 mg/dL (9.0-27.0); Chloride 102 mmol/L (96-109); Glucose 118 mg/dL (70-110); Potassium 3.9 mmol/L (3.5-5.5); Sodium 142 mmol/L (135-145)
[2023-08-01 11:37] LABS: ALT 8 U/L (8-44); AST 19 U/L (13-35); Albumin 2.9 d/dL (3.8-4.9); Albumin/Globulin Ratio 0.94 Ratio (1.60-3.17); Alkaline Phosphatase 77 U/L (41-126); Calcium 8.9 mg/dL (8.7-10.3); Carbon Dioxide 24.5 mmol/L (21.6-31.8); Globulin 3.1 d/dL (1.6-3.3); Total Bilirubin <0.2 mg/dL (0.3-1.2)
[2023-08-01 12:01] LABS: Glucose,Whole Blood 192 mg/dL (70-110)
--- NOTE | 2023-08-01 12:54 | P.PN ---
Subjective Progress Note Date: 07/31/23 Principal diagnosis: MSSA bacteremia Patient is a 82-year-old female with a past medical history significant for hypertension hyperlipidemia history of chronic lower extremity venous stasis ulcer with recent admission to the hospital have E. coli bacteremia patient did develop ATN requiring hemodialysis patient was subsequently stabilized and transferred to local custodial for rehabilitation , patient did have improvement her kidney function and did not require any further dialysis however the patient continued to have right groin dialysis catheter no presenting to the hospital with weakness tachycardia and did have a positive blood culture with MSSA. Patient did have a mole of the right groin dialysis catheter by vascular surgery on 07/28/2023 On today's evaluation that is 07/31/2023, the patient t continues o be afebrile, , the patient is breathing comfortably on room air , the patient denies chest pain and no significant cough, patient denies abdominal pain, nausea or vomiting and no diarrhea has been reported by the nursing staff, no new symptoms Patient did have white count is up to 22,000 ,blood cultures with MSSA and repeat blood cultures so far negative Objective - Vital Signs Vital signs: Vital Signs Temp 98.8 F 07/31/23 13:03 Pulse 73 07/31/23 21:12 Resp 18 07/31/23 13:03 BP 93/52 07/31/23 21:12 Pulse Ox 96 07/31/23 13:03 FiO2 Intake & Output 07/31/23 07/31/23 08/01/23 06:59 18:59 06:59 Output Total 800 Balance -800 Output: Urine 800 Other: Voiding Method External Catheter - Exam GENERAL DESCRIPTION: An elderly female lying in bed in no distress RESPIRATORY SYSTEM: Unlabored breathing , decreased breath sounds at bases HEART: S1 S2 regular rate and rhythm , ABDOMEN: Soft , no tenderness EXTREMITIES: Right lower extremity wound base is clean no surrounding redness - Labs CBC & Chem 7: 08/01/23 06:53 08/01/23 06:53 Labs: Abnormal Lab Results - Last 24 Hours (Table) 07/31/23 07/31/23 Range/Units 06:36 06:36 WBC 22.4 H (3.8-10.6) k/uL RBC 2.64 L (3.80-5.40) m/uL Hgb 8.6 L (11.4-16.0) gm/dL Hct 26.9 L (34.0-46.0) % MCV 101.9 H (80.0-100.0) fL Neutrophils # (Manual) 17.20 H (1.3-7.7) k/uL Metamyelocytes # (Man) 0.67 H (0) k/uL Myelocytes # (Manual) 1.34 H (0) k/uL Promyelocytes # (Man) 0.22 H (0) k/uL BUN 107 H* (7-17) mg/dL Creatinine 2.94 H (0.52-1.04) mg/dL Total Protein 5.7 L (6.3-8.2) g/dL Albumin 2.7 L (3.5-5.0) g/dL Microbiology - Last 24 Hours (Table) 07/28/23 07:35 Blood Culture Gram Stain - Preliminary Blood Blood Culture - Preliminary 07/29/23 15:35 Urine Culture - Final Urine,Voided Assessment and Plan (1) Cellulitis Current Visit: Yes Status: Acute Code(s): L03.90 - CELLULITIS, UNSPECIFIED SNOMED Code(s): 125070226 (2) Leukocytosis Current Visit: Yes Status: Acute Code(s): D72.829 - ELEVATED WHITE BLOOD CELL COUNT, UNSPECIFIED SNOMED Code(s): 522057408 (3) Stage II pressure ulcer of left buttock Current Visit: Yes Status: Acute Code(s): L89.322 - PRESSURE ULCER OF LEFT BUTTOCK, STAGE 2 SNOMED Code(s): 51819485602762 (4) Stage II pressure ulcer of left heel Current Visit: Yes Status: Acute Code(s): L89.622 - PRESSURE ULCER OF LEFT HEEL, STAGE 2 SNOMED Code(s): 62641390490668 (5) Stage II pressure ulcer of right buttock Current Visit: Yes Status: Acute Code(s): L89.312 - PRESSURE ULCER OF RIGHT BUTTOCK, STAGE 2 SNOMED Code(s): 57993368411359 (6) MSSA bacteremia Current Visit: Yes Status: Acute Code(s): R78.81 - BACTEREMIA; B95.61 - METHICILLIN SUSCEP STAPH INFCT CAUSING DIS CLASSD ELSWHR SNOMED Code(s): 495722314 Plan: 1patient presented to hospital with tachycardia patient did have a low-grade fever and elevated white count and MSSA bacteremia source is likely dialysis catheter infection which has been discontinued 2-right lower extremity wound care with a dry Aquacel dressing and Daniel wrap for compression 3-we will apply zinc to the excoriated skin to the bilateral gluteal and sacral area keep the area of the pressure 4 blood culture repeated so far pending 5patient to continue with the cefazolin , patient did have persistent elevated white count urine cultures came back negative we will recheck her inflammatory markers with a.m. lab and repeat blood cultures Dictation was produced using [employer] dictation software. please excuse any grammatical, word or spelling errors. Time with Patient: Less than 30
[2023-08-01] MEDS: SEVELAMER 800 MG TAB PO SCH ×2 (13:37→18:06)
[2023-08-01] MEDS: metroNIDAZOLE 500 MG TAB PO SCH ×2 (13:37→21:57)
[2023-08-01] MEDS: NAFCILLIN 2 GM in DEXTROSE 5% IN WATER 100 ML IVPB SCH ×6 (13:37→20:05)
--- NOTE | 2023-08-01 15:41 | XR ---
EXAMINATION TYPE: XR chest 1V DATE OF EXAM: 08/01/2023 3:14 PM COMPARISON: Chest radiographs from 07/27/2023 TECHNIQUE: XR chest 1V Frontal view of the chest. CLINICAL INDICATION:Female, 82 years old with history of sob; FINDINGS: Patient is rotated which limits evaluation. Lungs/Pleura: There is no evidence of pleural effusion, focal consolidation, or pneumothorax. Chroni c senescent parenchyma change. Pulmonary vascularity: Unremarkable. Heart/mediastinum: Cardiomediastinal silhouette is prominent in size. Musculoskeletal: No acute osseous pathology. IMPRESSION: No acute cardiopulmonary disease/process.
--- NOTE | 2023-08-01 16:48 | CDI ---
Documentation Clarification Form Date: 08/01/2023 04:44:43 PM From: Hiwot Feliciano RN, CCDS Admit Date: 07/27/2023 04:05:00 AM Patient Name: Dania Vergara Visit Number: [id number] Discharge Date: ATTENTION: The Clinical Documentation Specialists (CDI) and [facility] Coding Staff appreciate your assistance in clarifying documentation. Please respond to the clarification below the line at the bottom and electronically sign. The CDI & [facility] Coding staff will review the response and follow-up if needed. Please note: Queries are made part of the Legal Health Record. If you have any questions, please contact the author of this message via ITS. Dr. Ellis Olaf Your patient has MSSA bacteremia IN THE id consult and subsequent progress notes . Based on this information and the findings below, is there an additional diagnosis that is clinically appropriate for this patient? Patient history/risk factors: Right groin dialysis catheter Clinical Indicators: 82-year-old female on prior admission had Staph aureus bacteremia status post removal of groin dialysis catheter. On antibiotics. She continue to have right groin dialysis catheter now presenting to the hospital with weakness tachycardia and did have a positive blood culture with MSSA. 07/26 VS: 131/80 134 21 99.1 93% RA Labs: WBC 21.4 Neutrophils 20.3 Na+131 CL 97 BUN 54, CR 2.63 GFR 16, mA+ 1.3 BNP 9640 Troponin 0.796 07/29 Labs: UA: Large Leukocyte Esterase, wbc 81 Treatment: Remove dialysis catheter tip sent for culture Cefazolin 2 GM IVPB Q12 07/27 -08/01 Flagyl 500 MG PO TID Vancomycin 1,250 MG IVPB Once 07/27 (PTD) DC Nafcillin Sodium 2 GM IVPB Q4 HRS 08/01 Is there an additional diagnosis that is clinically appropriate for this patient? [ x ] Sepsis due to MSSA Bacteremia secondary to Dialysis catheter (POA) [ ] MSSA Bacteremia without Sepsis secondary to Dialysis catheter (POA) [ ] MSSA Bacteremia without Sepsis secondary to gluteal cellulitis (POA [ ] Unable to determine [ ] Other, please specify (Template Last Reviewed: December 2022) MTDD
--- NOTE | 2023-08-01 17:04 | P.PN ---
Subjective Progress Note Date: 08/01/23 This is an 82-year-old female patient with an extensive medical history who presented to the ER with concerns of atrial flutter with RVR and rash. Patient remains with left femoral dialysis port. Concerns of possible ALLERGIC reaction due to antibiotics patient was given Benadryl and Solu-Medrol. Patient is a poor historian unable to recall recent events. Past medical history includes hyperlipidemia hypertension, end-stage renal disease requiring hemodialysis during previous hospitalization, osteoarthritis, GERD. Chest x-ray completed showing vascular congestion. EKG completed showing sinus tachycardia possible atrial flutter rate 144. White blood cell elevated 21.4, creatinine 2.63, bun 5 4. BNP 9640. Troponin 0.404, 0.7 696 and 1.360. Wound noted to left lower extremity. Patient was started on heparin for elevated troponins and Cardizem. Patient started on IV vancomycin. 2-D echo ordered. Unclear patient has been receiving hemodialysis. Attempting to obtain medical records. Cardiology, nephrology infectious disease and wound care service is consulted. Blood culture ordered. Repeat labs will be ordered. At this time patient is resting comfortably in bed. Current vital signs temp 98.5, heart rate 108, respiratory rate 20, blood pressure 131/72 with a pulse ox 93% on room air On 07/28/2023 patient was seen and examined on the medical floor she is alert and oriented 3 in no apparent distress, she is complaining of severe pain in the lower extremity especially at the time of dressing change, she is also complaining of fatigue and generalized weakness, otherwise she denies any complaints there is no fever or chills no headache or dizziness no chest pain no shortness of breath no cough no nausea or vomiting no abdominal pain no diarrhea no burning with urination no frequency or urgency and no hematuria. On 07/29/2023 patient is alert and oriented 3. Patient had hemodialysis cath removed with tip culture for source of infection. Blood cultures showing presumptive staph aureus. Infectious disease are following. Patient remains on IV antibiotic. White blood cell is trending down 18.8. Current vital signs temp 97.4, heart rate 87, respiratory rate 18, blood pressure 117/74 with a pulse ox 97% on room air On 07/30/2023 patient was seen and examined on the telemetry floor she is alert and oriented 3 in no apparent distress, she is complaining of generalized weakness, otherwise she denies any complaints, vital exam reveals a temperature of 98.4 pulse 71 respiration 14 blood pressure 115/67 pulse ox 95% on room air sodium 136 potassium 4.1 chloride 101 CO2 19 BUN 108 creatinine 2.59, patient is improving gradually, PT and OT consult, she remains on IV antibiotics, will follow closely On 07/31/2023 patient was seen and examined on the telemetry floor she is alert and oriented 3 in no apparent distress she is still complaining of weakness and complaining of low back pain otherwise she denies any complaints there is no fever or chills no headache or dizziness no chest pain no shortness of breath no cough no nausea or vomiting no abdominal pain no diarrhea and no urinary symptoms. Labs today are still pending, yesterday white blood count was still elevated at 20.7 BUN 108 creatinine 2.59 will continue with current antibiotics infectious disease are following On 08/01/2023 patient was seen and examined on the telemetry floor she is alert and oriented 3 in no apparent distress she is complaining of generalized weakness and low back pain, otherwise she denies any complaints there is no fever or chills no headache or dizziness no chest pain no shortness of breath no cough no nausea or vomiting no abdominal pain no diarrhea and no urinary symptoms. Today white blood count is 23.9 hemoglobin 8.5 platelet count 180 BUN 19 9 creatinine 3.2 Objective - Vital Signs Vital signs: Vital Signs Temp 97.9 F 08/01/23 08:02 Pulse 87 08/01/23 08:02 Resp 16 08/01/23 08:02 BP 94/61 08/01/23 08:02 Pulse Ox 96 08/01/23 08:02 FiO2 Intake & Output 07/31/23 08/01/23 08/01/23 18:59 06:59 18:59 Intake Total 500 Output Total 500 600 Balance 0 -600 Intake: Oral 500 Output: Urine 500 600 Other: Voiding Method External Catheter External Catheter External Catheter - Exam Head normocephalic Neck supple Lungs diminished bilaterally Heart regular rate and rhythm S1-S2, no rub or gallop Abdomen is soft nontender nondistended positive bowel sounds no hepatos plenomegaly Extremities multiple wounds to lower extremities Neuro alert and orientated to 3 - Labs CBC & Chem 7: 08/01/23 06:53 08/01/23 06:53 Labs: Abnormal Lab Results - Last 24 Hours (Table) 07/31/23 Range/Units 06:36 Neutrophils # (Manual) 17.20 H (1.3-7.7) k/uL Metamyelocytes # (Man) 0.67 H (0) k/uL Myelocytes # (Manual) 1.34 H (0) k/uL Promyelocytes # (Man) 0.22 H (0) k/uL Microbiology - Last 24 Hours (Table) 07/28/23 07:35 Blood Culture Gram Stain - Preliminary Blood Blood Culture - Preliminary Assessment and Plan Assessment: 1. Atrial flutter with RVR 2. Possible ALLERGIC reaction 3. Right lower Cellulitis with multiple wounds 4. Acute renal failure patient was started on hemodialysis during previous admission right femoral dialysis catheter in place. Unclear if patient is still receiving hemodialysis [facility] facility attempting to obtain medical records. Nephrology services consulted 5. Elevated troponins 6. History of recent admission following fall with rhabdomyolysis 7. Recent urinary tract infection with E. coli bacteremia 8. Recent treatment for suspected C. diff 9. History of lateral prosthetic lateral condyle fracture of the distal femur DVT prophylaxis heparin drip. GI prophylaxis Protonix Cardiology, nephrology, infectious disease and wound care service is consulted Patient's started on Cardizem drip 2-D echo ordered Maintained on IV vancomycin Repeat labs ordered Blood culture ordered
[2023-08-01 17:45] LABS: Glucose,Whole Blood 147 mg/dL (70-110)
[2023-08-01] MEDS: MONTELUKAST 10 MG TAB PO SCH (20:05)
[2023-08-01 20:13] LABS: Glucose,Whole Blood 118 mg/dL (70-110)
[2023-08-02] MEDS: NAFCILLIN 2 GM in DEXTROSE 5% IN WATER 100 ML IVPB SCH ×12 (01:37→22:42)
[2023-08-02] MEDS: HYDROmorphone 0.5 MG/0.5 ML SYRINGE IVP PRN ×3 (06:24→21:51)
[2023-08-02] MEDS: metroNIDAZOLE 500 MG TAB PO SCH ×3 (07:47→21:51)
[2023-08-02] MEDS: PANTOPRAZOLE 40 MG TABLET PO SCH (07:47)
[2023-08-02] MEDS: FLUoxetine HCL 20 MG CAP PO SCH (07:47)
[2023-08-02] MEDS: ENOXAPARIN 30 MG/0.3 ML SYRINGE SQ SCH (07:47)
[2023-08-02] MEDS: SODIUM BICARBONATE TAB 650 MG TAB PO SCH ×2 (07:47→21:51)
[2023-08-02] MEDS: ASPIRIN 81 MG PO SCH (07:47)
[2023-08-02] MEDS: HYDROPHILIC CREAM 180 GM TUBE TOPICAL SCH (07:48)
[2023-08-02] MEDS: CHOLESTYRAMINE (WITH SUGAR) 4 GM PACKET PO SCH ×2 (07:48→21:50)
[2023-08-02] MEDS: METOPROLOL TARTRATE 50 MG TAB PO SCH ×2 (07:48→22:01)
[2023-08-02] MEDS: PRAVASTATIN SODIUM 20 MG TAB PO SCH (07:48)
[2023-08-02] MEDS: ASCORBIC ACID 500 MG TAB PO SCH (07:48)
[2023-08-02] MEDS: NYSTATIN 100,000 UNIT/ML SUSP 500,000 UNIT/5 ML CUP PO SCH ×4 (07:49→21:50)
[2023-08-02 07:54] LABS: Glucose,Whole Blood 121 mg/dL (70-110)
--- NOTE | 2023-08-02 09:06 | P.PN ---
Subjective Progress Note Date: 08/02/23 This is an 82-year-old female patient with an extensive medical history who presented to the ER with concerns of atrial flutter with RVR and rash. Patient remains with left femoral dialysis port. Concerns of possible ALLERGIC reaction due to antibiotics patient was given Benadryl and Solu-Medrol. Patient is a poor historian unable to recall recent events. Past medical history includes hyperlipidemia hypertension, end-stage renal disease requiring hemodialysis during previous hospitalization, osteoarthritis, GERD. Chest x-ray completed showing vascular congestion. EKG completed showing sinus tachycardia possible atrial flutter rate 144. White blood cell elevated 21.4, creatinine 2.63, bun 5 4. BNP 9640. Troponin 0.404, 0.7 696 and 1.360. Wound noted to left lower extremity. Patient was started on heparin for elevated troponins and Cardizem. Patient started on IV vancomycin. 2-D echo ordered. Unclear patient has been receiving hemodialysis. Attempting to obtain medical records. Cardiology, nephrology infectious disease and wound care service is consulted. Blood culture ordered. Repeat labs will be ordered. At this time patient is resting comfortably in bed. Current vital signs temp 98.5, heart rate 108, respiratory rate 20, blood pressure 131/72 with a pulse ox 93% on room air On 07/28/2023 patient was seen and examined on the medical floor she is alert and oriented 3 in no apparent distress, she is complaining of severe pain in the lower extremity especially at the time of dressing change, she is also complaining of fatigue and generalized weakness, otherwise she denies any complaints there is no fever or chills no headache or dizziness no chest pain no shortness of breath no cough no nausea or vomiting no abdominal pain no diarrhea no burning with urination no frequency or urgency and no hematuria. On 07/29/2023 patient is alert and oriented 3. Patient had hemodialysis cath removed with tip culture for source of infection. Blood cultures showing presumptive staph aureus. Infectious disease are following. Patient remains on IV antibiotic. White blood cell is trending down 18.8. Current vital signs temp 97.4, heart rate 87, respiratory rate 18, blood pressure 117/74 with a pulse ox 97% on room air On 07/30/2023 patient was seen and examined on the telemetry floor she is alert and oriented 3 in no apparent distress, she is complaining of generalized weakness, otherwise she denies any complaints, vital exam reveals a temperature of 98.4 pulse 71 respiration 14 blood pressure 115/67 pulse ox 95% on room air sodium 136 potassium 4.1 chloride 101 CO2 19 BUN 108 creatinine 2.59, patient is improving gradually, PT and OT consult, she remains on IV antibiotics, will follow closely On 07/31/2023 patient was seen and examined on the telemetry floor she is alert and oriented 3 in no apparent distress she is still complaining of weakness and complaining of low back pain otherwise she denies any complaints there is no fever or chills no headache or dizziness no chest pain no shortness of breath no cough no nausea or vomiting no abdominal pain no diarrhea and no urinary symptoms. Labs today are still pending, yesterday white blood count was still elevated at 20.7 BUN 108 creatinine 2.59 will continue with current antibiotics infectious disease are following On 08/01/2023 patient was seen and examined on the telemetry floor she is alert and oriented 3 in no apparent distress she is complaining of generalized weakness and low back pain, otherwise she denies any complaints there is no fever or chills no headache or dizziness no chest pain no shortness of breath no cough no nausea or vomiting no abdominal pain no diarrhea and no urinary symptoms. Today white blood count is 23.9 hemoglobin 8.5 platelet count 180 BUN 19 9 creatinine 3.2 On 08/02/2023 patient is alert and oriented 3 currently sitting up in bed eating breakfast. Repeat blood culture has been ordered per infectious disease due to continuing leukocytosis. Antibiotics adjusted to nafcillin per ID. Current vital signs temp 97.6, heart rate 77, respiratory rate 18, blood pressure 87/53 with pulse ox 96% on room. Patient denies chest pain or short ness breath. Patient denies nausea vomiting or diarrhea. Patient denies any urinary burning or frequency Objective - Vital Signs Vital signs: Vital Signs Temp 97.6 F 08/02/23 07:46 Pulse 77 08/02/23 07:46 Resp 18 08/02/23 07:46 BP 87/53 08/02/23 07:46 Pulse Ox 96 08/02/23 07:46 FiO2 Intake & Output 08/01/23 08/02/23 08/02/23 18:59 06:59 18:59 Output Total 900 500 Balance -900 -500 Output: Urine 900 500 Other: Voiding Method External Catheter External Catheter External Catheter - Exam Head normocephalic Neck supple Lungs diminished bilaterally Heart regular rate and rhythm S1-S2, no rub or gallop Abdomen is soft nontender nondistended positive bowel sounds no hepatosplenomegaly Extremities multiple wounds to lower extremities Neuro alert and orientated to 3 - Labs CBC & Chem 7: 08/01/23 06:53 08/01/23 06:53 Labs: Abnormal Lab Results - Last 24 Hours (Table) 08/01/23 08/01/23 08/01/23 Range/Units 06:53 06:53 12:00 WBC 23.93 H (4.50-10.00) X 10*3/uL RBC 2.75 L (4.10-5.20) X 10*6/uL Hgb 8.5 L (12.0-15.0) d/dL Hct 28.6 L (37.2-46.3) % MCV 104.0 H (80.0-97.0) FL MCHC 29.7 L (32.0-37.0) d/dL RDW 14.7 H (11.5-14.5) % Neutrophils # (Manual) 19.38 H (1.80-7.70) X 10*3/uL Monocytes # (Manual) 1.20 H (0.20-1.00) X 10*3/uL Eosinophils # (Manual) 0.48 H (0.04-0.35) X 10*3/uL NRBC/100 WBC Diff 0.03 H (0.00-0.01) X 10*3/uL Macrocytosis (manual) 2+ A Anion Gap 15.50 H (4.00-12.00) mmol/L BUN 99.1 H (9.0-27.0) mg/dL Creatinine 3.2 H (0.6-1.5) mg/dL Est GFR (CKD-EPI) 14 L (>=60) BUN/Creatinine Ratio 30.97 H (12.00-20.00) Ratio Glucose 118 H (70-110) mg/dL POC Glucose (mg/dL) 192 H (70-110) mg/dL Total Bilirubin <0.2 L (0.3-1.2) mg/dL C-Reactive Protein (<1.0) mg/dL Total Protein 6.0 L (6.2-8.2) d/dL Albumin 2.9 L (3.8-4.9) d/dL Albumin/Globulin Ratio 0.94 L (1.60-3.17) Ratio 08/01/23 08/01/23 08/01/23 Range/Units 12:54 17:30 20:10 WBC (4.50-10.00) X 10*3/uL RBC (4.10-5.20) X 10*6/uL Hgb (12.0-15.0) d/dL Hct (37.2-46.3) % MCV (80.0-97.0) FL MCHC (32.0-37.0) d/dL RDW (11.5-14.5) % Neutrophils # (Manual) (1.80-7.70) X 10*3/uL Monocytes # (Manual) (0.20-1.00) X 10*3/uL Eosinophils # (Manual) (0.04-0.35) X 10*3/uL NRBC/100 WBC Diff (0.00-0.01) X 10*3/uL Macrocytosis (manual) Anion Gap (4.00-12.00) mmol/L BUN (9.0-27.0) mg/dL Creatinine (0.6-1.5) mg/dL Est GFR (CKD-EPI) (>=60) BUN/Creatinine Ratio (12.00-20.00) Ratio Glucose (70-110) mg/dL POC Glucose (mg/dL) 147 H 118 H (70-110) mg/dL Total Bilirubin (0.3-1.2) mg/dL C-Reactive Protein 7.6 H (<1.0) mg/dL Total Protein (6.2-8.2) d/dL Albumin (3.8-4.9) d/dL Albumin/Globulin Ratio (1.60-3.17) Ratio 08/02/23 Range/Units 07:34 WBC (4.50-10.00) X 10*3/uL RBC (4.10-5.20) X 10*6/uL Hgb (12.0-15.0) d/dL Hct (37.2-46.3) % MCV (80.0-97.0) FL MCHC (32.0-37.0) d/dL RDW (11.5-14.5) % Neutrophils # (Manual) (1.80-7.70) X 10*3/uL Monocytes # (Manual) (0.20-1.00) X 10*3/uL Eosinophils # (Manual) (0.04-0.35) X 10*3/uL NRBC/100 WBC Diff (0.00-0.01) X 10*3/uL Macrocytosis (manual) Anion Gap (4.00-12.00) mmol/L BUN (9.0-27.0) mg/dL Creatinine (0.6-1.5) mg/dL Est GFR (CKD-EPI) (>=60) BUN/Creatinine Ratio (12.00-20.00) Ratio Glucose (70-110) mg/dL POC Glucose (mg/dL) 121 H (70-110) mg/dL Total Bilirubin (0.3-1.2) mg/dL C-Reactive Protein (<1.0) mg/dL Total Protein (6.2-8.2) d/dL Albumin (3.8-4.9) d/dL Albumin/Globulin Ratio (1.60-3.17) Ratio Microbiology - Last 24 Hours (Table) 07/29/23 15:35 Urine Culture - Final Urine,Voided 07/28/23 07:35 Blood Culture Gram Stain - Preliminary Blood Blood Culture - Preliminary Presumptive Staph aureus Assessment and Plan Assessment: 1. Atrial flutter with RVR 2. Possible ALLERGIC reaction 3. Right lower Cellulitis with multiple wounds 4. Acute renal failure patient was started on hemodialysis during previous admission right femoral dialysis catheter in place. Unclear if patient is still receiving hemodialysis [facility] facility attempting to obtain medical records. Ca theter removed and cultured 5. Elevated troponins 6. History of recent admission following fall with rhabdomyolysis 7. Recent urinary tract infection with E. coli bacteremia 8. Recent treatment for suspected C. diff 9. 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 GI prophylaxis Protonix Cardiology, nephrology, infectious disease and wound care service is consulted Hemodialysis catheter removed and cultured. Patient remains on IV antibiotics Repeat blood cultures ordered per ID on 08/01/2023
--- NOTE | 2023-08-02 09:54 | P.PN ---
Subjective Patient is seen in follow for acute kidney injury. Nonoliguric. No vomiting or diarrhea. No chest pain or shortness of breath. Blood pressure in the lower side. Vital signs are stable. General: No acute distress. HEENT: Head exam is unremarkable. LUNGS: No audible rhonchi or wheezes. HEART: Rate and Rhythm are regular. ABDOMEN: Nontender. EXTREMITITES: No edema. Lower extremity is wrapped. No drainage. Objective - Vital Signs Vital signs: Vital Signs Temp 97.6 F 08/02/23 07:46 Pulse 77 08/02/23 07:46 Resp 18 08/02/23 07:46 BP 87/53 08/02/23 07:46 Pulse Ox 96 08/02/23 07:46 FiO2 Intake & Output 08/01/23 08/02/23 08/02/23 18:59 06:59 18:59 Output Total 900 500 Balance -900 -500 Output: Urine 900 500 Other: Voiding Method External Catheter External Catheter External Catheter - Labs CBC & Chem 7: 08/01/23 06:53 08/01/23 06:53 Labs: Abnormal Lab Results - Last 24 Hours (Table) 08/01/23 08/01/23 08/01/23 Range/Units 06:53 06:53 12:00 WBC 23.93 H (4.50-10.00) X 10*3/uL RBC 2.75 L (4.10-5.20) X 10*6/uL Hgb 8.5 L (12.0-15.0) d/dL Hct 28.6 L (37.2-46.3) % MCV 104.0 H (80.0-97.0) FL MCHC 29.7 L (32.0-37.0) d/dL RDW 14.7 H (11.5-14.5) % Neutrophils # (Manual) 19.38 H (1.80-7.70) X 10*3/uL Monocytes # (Manual) 1.20 H (0.20-1.00) X 10*3/uL Eosinophils # (Manual) 0.48 H (0.04-0.35) X 10*3/uL NRBC/100 WBC Diff 0.03 H (0.00-0.01) X 10*3/uL Macrocytosis (manual) 2+ A Anion Gap 15.50 H (4.00-12.00) mmol/L BUN 99.1 H (9.0-27.0) mg/dL Creatinine 3.2 H (0.6-1.5) mg/dL Est GFR (CKD-EPI) 14 L (>=60) BUN/Creatinine Ratio 30.97 H (12.00-20.00) Ratio Glucose 118 H (70-110) mg/dL POC Glucose (mg/dL) 192 H (70-110) mg/dL Total Bilirubin <0.2 L (0.3-1.2) mg/dL C-Reactive Protein (<1.0) mg/dL Total Protein 6.0 L (6.2-8.2) d/dL Albumin 2.9 L (3.8-4.9) d/dL Albumin/Globulin Ratio 0.94 L (1.60-3.17) Ratio 08/01/23 08/01/23 08/01/23 Range/Units 12:54 17:30 20:10 WBC (4.50-10.00) X 10*3/uL RBC (4.10-5.20) X 10*6/uL Hgb (12.0-15.0) d/dL Hct (37.2-46.3) % MCV (80.0-97.0) FL MCHC (32.0-37.0) d/dL RDW (11.5-14.5) % Neutrophils # (Manual) (1.80-7.70) X 10*3/uL Monocytes # (Manual) (0.20-1.00) X 10*3/uL Eosinophils # (Manual) (0.04-0.35) X 10*3/uL NRBC/100 WBC Diff (0.00-0.01) X 10*3/uL Macrocytosis (manual) Anion Gap (4.00-12.00) mmol/L BUN (9.0-27.0) mg/dL Creatinine (0.6-1.5) mg/dL Est GFR (CKD-EPI) (>=60) BUN/Creatinine Ratio (12.00-20.00) Ratio Glucose (70-110) mg/dL POC Glucose (mg/dL) 147 H 118 H (70-110) mg/dL Total Bilirubin (0.3-1.2) mg/dL C-Reactive Protein 7.6 H (<1.0) mg/dL Total Protein (6.2-8.2) d/dL Albumin (3.8-4.9) d/dL Albumin/Globulin Ratio (1.60-3.17) Ratio 08/02/23 Range/Units 07:34 WBC (4.50-10.00) X 10*3/uL RBC (4.10-5.20) X 10*6/uL Hgb (12.0-15.0) d/dL Hct (37.2-46.3) % MCV (80.0-97.0) FL MCHC (32.0-37.0) d/dL RDW (11.5-14.5) % Neutrophils # (Manual) (1.80-7.70) X 10*3/uL Monocytes # (Manual) (0.20-1.00) X 10*3/uL Eosinophils # (Manual) (0.04-0.35) X 10*3/uL NRBC/100 WBC Diff (0.00-0.01) X 10*3/uL Macrocytosis (manual) Anion Gap (4.00-12.00) mmol/L BUN (9.0-27.0) mg/dL Creatinine (0.6-1.5) mg/dL Est GFR (CKD-EPI) (>=60) BUN/Creatinine Ratio (12.00-20.00) Ratio Glucose (70-110) mg/dL POC Glucose (mg/dL) 121 H (70-110) mg/dL Total Bilirubin (0.3-1.2) mg/dL C-Reactive Protein (<1.0) mg/dL Total Protein (6.2-8.2) d/dL Albumin (3.8-4.9) d/dL Albumin/Globulin Ratio (1.60-3.17) Ratio Microbiology - Last 24 Hours (Table) 07/29/23 15:35 Urine Culture - Final Urine,Voided 07/28/23 07:35 Blood Culture Gram Stain - Preliminary Blood Blood Culture - Preliminary Presumptive Staph aureus Assessment and Plan Plan: Assessment: 1. Acute kidney injury secondary to ATN secondary to severe sepsis and rhabdomyolysis. Patient required hemodialysis but now has been off hemodialysis for over a week. Baseline creatinine prior to acute kidney injury episode was near 0.8. Creatinine this admission has been in the range of 2.6-2.9. Establish new baseline renal function. Nonoliguric. Ultrasound from 06/11/2023 showed no hydronephrosis. Creatinine 3.2 yesterday. 2. Staph aureus bacteremia status post removal of groin dialysis catheter. On antibiotics. 3. Hyperphosphatemia secondary to acute kidney injury maintained on Renvela. Phosphorus level 4.7 dated 07/27/2023. 4. Anemia. Possibly component of chronic kidney disease. On Aranesp. 5. Volume overload. Improving with diuresis. 6. Metabolic acidosis secondary to acute kidney injury maintained on oral bicarb. Better. 7. Chronic diastolic CHF with mild to moderate mitral regurgitation. Plan: Encouraged oral intake. Start normal saline at 75 mL an hour. Chest x-ray clear. Maintain midodrine. Hold for systolic blood pressure greater than 110. Continue to monitor renal function and urine output. Morning labs pending.
[2023-08-02 11:43] LABS: ALT 8 U/L (8-44); AST 17 U/L (13-35); Albumin 2.6 d/dL (3.8-4.9); Alkaline Phosphatase 74 U/L (41-126); Blood Urea Nitrogen 97.2 mg/dL (9.0-27.0); Calcium 8.5 mg/dL (8.7-10.3); Carbon Dioxide 24.8 mmol/L (21.6-31.8); Chloride 99 mmol/L (96-109); Globulin 2.9 d/dL (1.6-3.3); Glucose 91 mg/dL (70-110); Phosphorus 4.3 mg/dL (2.4-5.1); Potassium 3.8 mmol/L (3.5-5.5); Sodium 139 mmol/L (135-145); Total Bilirubin <0.2 mg/dL (0.3-1.2); Total Protein 5.5 d/dL (6.2-8.2)
[2023-08-02 11:51] LABS: Basophils # (M) 0 X 10*3/uL (0.00-0.10); HCT 24.3 % (37.2-46.3); HGB 7.3 d/dL (12.0-15.0); MCH 31.7 pg (27.0-32.0); MCV 105.7 FL (80.0-97.0); Mean Platelet Volume 12.1 FL (9.5-12.2); NRBC Per 100 WBC 0.02 X 10*3/uL (0.00-0.01); Neutrophils % (M) 76 %; Platelet Count 240 X 10*3/uL (140-440); WBC 21.62 X 10*3/uL (4.50-10.00)
[2023-08-02 11:52] LABS: Eosinophils # (M) 0.86 X 10*3/uL (0.04-0.35); Metamyelocytes % 6 % (0-0); Monocytes # (M) 0.86 X 10*3/uL (0.20-1.00); Myelocytes % 4 % (0-0); Neutrophils # (M) 16.43 X 10*3/uL (1.80-7.70); RBC Morphology Normal (Normal)
[2023-08-02 12:40] LABS: Glucose,Whole Blood 112 mg/dL (70-110)
[2023-08-02] MEDS: SEVELAMER 800 MG TAB PO SCH ×2 (12:58→18:01)
[2023-08-02] MEDS: MIDODRINE 5 MG TAB PO SCH ×2 (12:58→18:02)
[2023-08-02] MEDS: SODIUM CHLORIDE 0.9% 1,000 ML IV SCH (13:00)
--- NOTE | 2023-08-02 13:30 | P.PN ---
Subjective Progress Note Date: 08/01/23 Principal diagnosis: MSSA bacteremia Patient is a 82-year-old female with a past medical history significant for hypertension hyperlipidemia history of chronic lower extremity venous stasis ulcer with recent admission to the hospital have E. coli bacteremia patient did develop ATN requiring hemodialysis patient was subsequently stabilized and transferred [facility] local [facility] , patient did have improvement her kidney function and did not require any further dialysis however the patient continued to have right groin dialysis catheter no presenting to the hospital with weakness tachycardia and did have a positive blood culture with MSSA. Patient did have a mole of the right groin dialysis catheter by vascular surgery on 07/28/2023 On today's evaluation that is 08/01/2023, the patient denies any fever or any chills , the patient is breathing comfortably on room air , the patient denies chest pain or cough, patient denies nausea or vomiting and no abdominal pain, no diarrhea has been reported and denies pain to the gluteal area Patient did have white count is up to 23.93 ,blood cultures with MSSA , catheter tip positive blood culture repeated on also positive Objective - Vital Signs Vital signs: Vital Signs Temp 97.9 F 08/01/23 08:02 Pulse 87 08/01/23 08:02 Resp 16 08/01/23 08:02 BP 94/61 08/01/23 08:02 Pulse Ox 96 08/01/23 08:02 FiO2 Intake & Output 07/31/23 08/01/23 08/01/23 18:59 06:59 18:59 Intake Total 500 Output Total 500 600 Balance 0 -600 Intake: Oral 500 Output: Urine 500 600 Other: Voiding Method External Catheter External Catheter External Catheter - Exam GENERAL DESCRIPTION: An elderly female lying in bed in no distress RESPIRATORY SYSTEM: Unlabored breathing , decreased breath sounds at bases HEART: S1 S2 regular rate and rhythm , ABDOMEN: Soft , no tenderness EXTREMITIES: Right lower extremity wound base is clean no surrounding redness - Labs CBC & Chem 7: 08/02/23 06:22 08/02/23 06:22 Labs: Abnormal Lab Results - Last 24 Hours (Table) 08/01/23 08/01/23 08/01/23 Range/Units 06:53 06:53 12:00 WBC 23.93 H (4.50-10.00) X 10*3/uL RBC 2.75 L (4.10-5.20) X 10*6/uL Hgb 8.5 L (12.0-15.0) d/dL Hct 28.6 L (37.2-46.3) % MCV 104.0 H (80.0-97.0) FL MCHC 29.7 L (32.0-37.0) d/dL RDW 14.7 H (11.5-14.5) % Monocytes # (Manual) 1.20 H (0.20-1.00) X 10*3/uL Eosinophils # (Manual) 0.48 H (0.04-0.35) X 10*3/uL NRBC/100 WBC Diff 0.03 H (0.00-0.01) X 10*3/uL Macrocytosis (manual) 2+ A Anion Gap 15.50 H (4.00-12.00) mmol/L BUN 99.1 H (9.0-27.0) mg/dL Creatinine 3.2 H (0.6-1.5) mg/dL Est GFR (CKD-EPI) 14 L (>=60) BUN/Creatinine Ratio 30.97 H (12.00-20.00) Ratio Glucose 118 H (70-110) mg/dL POC Glucose (mg/dL) 192 H (70-110) mg/dL Total Bilirubin <0.2 L (0.3-1.2) mg/dL Total Protein 6.0 L (6.2-8.2) d/dL Albumin 2.9 L (3.8-4.9) d/dL Albumin/Globulin Ratio 0.94 L (1.60-3.17) Ratio Microbiology - Last 24 Hours (Table) 07/28/23 07:35 Blood Culture Gram Stain - Preliminary Blood Blood Culture - Preliminary Presumptive Staph aureus Assessment and Plan (1) Cellulitis Current Visit: Yes Status: Acute Code(s): L03.90 - CELLULITIS, UNSPECIFIED SNOMED Code(s): 228802915 (2) Leukocytosis Current Visit: Yes Status: Acute Code(s): D72.829 - ELEVATED WHITE BLOOD CELL COUNT, UNSPECIFIED SNOMED Code(s): 359325691 (3) Stage II pressure ulcer of left buttock Current Visit: Yes Status: Acute Code(s): L89.322 - PRESSURE ULCER OF LEFT BUTTOCK, STAGE 2 SNOMED Code(s): 03809643748418 (4) Stage II pressure ulcer of left heel Current Visit: Yes Status: Acute Code(s): L89.622 - PRESSURE ULCER OF LEFT HEEL, STAGE 2 SNOMED Code(s): 73665378964575 (5) Stage II pressure ulcer of right buttock Current Visit: Yes Status: Acute Code(s): L89.312 - PRESSURE ULCER OF RIGHT BUTTOCK, STAGE 2 SNOMED Code(s): 54200476629759 (6) MSSA bacteremia Current Visit: Yes Status: Acute Code(s): R78.81 - BACTEREMIA; B95.61 - METHICILLIN SUSCEP STAPH INFCT CAUSING DIS CLASSD ELSWHR SNOMED Code(s): 388057590 Plan: 1patient presented to hospital with tachycardia patient did have a low-grade fever and elevated white count and MSSA bacteremia source is likely dialysis catheter infection which has been discontinued 2-right lower extremity wound care with a dry Aquacel dressing and Daniel wrap for compression 3-we will apply zinc to the excoriated skin to the bilateral gluteal and sacral area keep the area of the pressure 4 blood culture repeated on 07/28/2023 positive we will repeat a blood cultures to document clearance 5we will discontinue cefazolin and start the patient on Naficillin because of persistent bacteremia Dictation was produced using [employer] dictation software. please excuse any grammatical, word or spelling errors. Time with Patient: Less than 30
[2023-08-02] MEDS ORDERED: LIDOCAINE 1% INJ 10MG/ML (20 ML MDV) SQ ONE (15:18)
[2023-08-02] MEDS: HYDROcodone/APAP 7.5-325MG 1 EACH TAB PO PRN (16:14)
--- NOTE | 2023-08-02 16:59 | P.PN ---
Subjective Progress Note Date: 08/02/23 Principal diagnosis: MSSA bacteremia Patient is a 82-year-old female with a past medical history significant for hypertension hyperlipidemia history of chronic lower extremity venous stasis ulcer with recent admission to the hospital have E. coli bacteremia patient did develop ATN requiring hemodialysis patient was subsequently stabilized and transferred to local [facility] for [facility] , patient did have improvement her kidney function and did not require any further dialysis however the patient continued to have right groin dialysis catheter no presenting to the hospital with weakness tachycardia and did have a positive blood culture with MSSA. Patient did have a mole of the right groin dialysis catheter by vascular surgery on 07/28/2023 On today's evaluation that is 08/02/2023, the patient remains to be afebrile, the patient is breathing comfortably without need for supplemental oxygen , the patient denies chest pain and no significant cough, patient denies nausea/vomiting /diarrhea and denies abdominal pain, the patient denies denies pain to the gluteal area Patient did have white count is slightly down to 21.62, creatinine is 3.0, gerardo ter tip positive blood culture repeated on 07/28/2023 also positive Objective - Vital Signs Vital signs: Vital Signs Temp 97.8 F 08/02/23 12:16 Pulse 77 08/02/23 12:16 Resp 18 08/02/23 12:16 BP 91/60 08/02/23 12:16 Pulse Ox 97 08/02/23 12:16 FiO2 Intake & Output 08/01/23 08/02/23 08/02/23 18:59 06:59 18:59 Output Total 900 500 Balance -900 -500 Output: Urine 900 500 Other: Voiding Method External Catheter External Catheter External Catheter - Exam GENERAL DESCRIPTION: An elderly female lying in bed in no distress RESPIRATORY SYSTEM: Unlabored breathing , decreased breath sounds at bases HEART: S1 S2 regular rate and rhythm , ABDOMEN: Soft , no tenderness EXTREMITIES: Right lower extremity wound base is clean no surrounding redness - Labs CBC & Chem 7: 08/02/23 06:22 08/02/23 06:22 Labs: Abnormal Lab Results - Last 24 Hours (Table) 08/01/23 08/01/23 08/01/23 Range/Units 06:53 12:54 17:30 WBC (4.50-10.00) X 10*3/uL RBC (4.10-5.20) X 10*6/uL Hgb (12.0-15.0) d/dL Hct (37.2-46.3) % MCV (80.0-97.0) FL MCHC (32.0-37.0) d/dL RDW (11.5-14.5) % Neutrophils # (Manual) 19.38 H (1.80-7.70) X 10*3/uL Eosinophils # (Manual) (0.04-0.35) X 10*3/uL NRBC/100 WBC Diff (0.00-0.01) X 10*3/uL Anion Gap (4.00-12.00) mmol/L BUN (9.0-27.0) mg/dL Creatinine (0.6-1.5) mg/dL Est GFR (CKD-EPI) (>=60) BUN/Creatinine Ratio (12.00-20.00) Ratio POC Glucose (mg/dL) 147 H (70-110) mg/dL Calcium (8.7-10.3) mg/dL Total Bilirubin (0.3-1.2) mg/dL C-Reactive Protein 7.6 H (<1.0) mg/dL Total Protein (6.2-8.2) d/dL Albumin (3.8-4.9) d/dL Albumin/Globulin Ratio (1.60-3.17) Ratio 08/01/23 08/02/23 08/02/23 Range/Units 20:10 06:22 06:22 WBC 21.62 H (4.50-10.00) X 10*3/uL RBC 2.30 L (4.10-5.20) X 10*6/uL Hgb 7.3 L (12.0-15.0) d/dL Hct 24.3 L (37.2-46.3) % MCV 105.7 H (80.0-97.0) FL MCHC 30.0 L (32.0-37.0) d/dL RDW 15.0 H (11.5-14.5) % Neutrophils # (Manual) (1.80-7.70) X 10*3/uL Eosinophils # (Manual) 0.86 H (0.04-0.35) X 10*3/uL NRBC/100 WBC Diff 0.02 H (0.00-0.01) X 10*3/uL Anion Gap 15.20 H (4.00-12.00) mmol/L BUN 97.2 H (9.0-27.0) mg/dL Creatinine 3.0 H (0.6-1.5) mg/dL Est GFR (CKD-EPI) 15 L (>=60) BUN/Creatinine Ratio 32.40 H (12.00-20.00) Ratio POC Glucose (mg/dL) 118 H (70-110) mg/dL Calcium 8.5 L (8.7-10.3) mg/dL Total Bilirubin <0.2 L (0.3-1.2) mg/dL C-Reactive Protein (<1.0) mg/dL Total Protein 5.5 L (6.2-8.2) d/dL Albumin 2.6 L (3.8-4.9) d/dL Albumin/Globulin Ratio 0.90 L (1.60-3.17) Ratio 08/02/23 08/02/23 Range/Units 07:34 12:19 WBC (4.50-10.00) X 10*3/uL RBC (4.10-5.20) X 10*6/uL Hgb (12.0-15.0) d/dL Hct (37.2-46.3) % MCV (80.0-97.0) FL MCHC (32.0-37.0) d/dL RDW (11.5-14.5) % Neutrophils # (Manual) (1.80-7.70) X 10*3/uL Eosinophils # (Manual) (0.04-0.35) X 10*3/uL NRBC/100 WBC Diff (0.00-0.01) X 10*3/uL Anion Gap (4.00-12.00) mmol/L BUN (9.0-27.0) mg/dL Creatinine (0.6-1.5) mg/dL Est GFR (CKD-EPI) (>=60) BUN/Creatinine Ratio (12.00-20.00) Ratio POC Glucose (mg/dL) 121 H 112 H (70-110) mg/dL Calcium (8.7-10.3) mg/dL Total Bilirubin (0.3-1.2) mg/dL C-Reactive Protein (<1.0) mg/dL Total Protein (6.2-8.2) d/dL Albumin (3.8-4.9) d/dL Albumin/Globulin Ratio (1.60-3.17) Ratio Microbiology - Last 24 Hours (Table) 07/28/23 16:20 Catheter Tip Culture - Preliminary Catheter Tip Presumptive Staph aureus 07/29/23 15:35 Urine Culture - Final Urine,Voided 07/28/23 07:35 Blood Culture Gram Stain - Preliminary Blood Blood Culture - Preliminary Presumptive Staph aureus Assessment and Plan (1) Cellulitis Current Visit: Yes Status: Acute Code(s): L03.90 - CELLULITIS, UNSPECIFIED SNOMED Code(s): 214520740 (2) Leukocytosis Current Visit: Yes Status: Acute Code(s): D72.829 - ELEVATED WHITE BLOOD CELL COUNT, UNSPECIFIED SNOMED Code(s): 321338461 (3) Stage II pressure ulcer of left buttock Current Visit: Yes Status: Acute Code(s): L89.322 - PRESSURE ULCER OF LEFT BUTTOCK, STAGE 2 SNOMED Code(s): 34157547338640 (4) Stage II pressure ulcer of left heel Current Visit: Yes Status: Acute Code(s): L89.622 - PRESSURE ULCER OF LEFT HEEL, STAGE 2 SNOMED Code(s): 72066101064821 (5) Stage II pressure ulcer of right buttock Current Visit: Yes Status: Acute Code(s): L89.312 - PRESSURE ULCER OF RIGHT BUTTOCK, STAGE 2 SNOMED Code(s): 48459190256993 (6) MSSA bacteremia Current Visit: Yes Status: Acute Code(s): R78.81 - BACTEREMIA; B95.61 - METHICILLIN SUSCEP STAPH INFCT CAUSING DIS CLASSD ELSWHR SNOMED Code(s): 856169491 Plan: 1patient presented to hospital with tachycardia patient did have a low-grade fever and elevated white count and MSSA bacteremia source is likely dialysis catheter infection which has been discontinued 2-right lower extremity wound care with a dry Aquacel dressing and Daniel wrap for compression 3-we will apply zinc to the excoriated skin to the bilateral gluteal and sacral area keep the area of the pressure 4 blood culture repeated on 07/28/2023 positive we will repeat a blood cultures to document clearance 5patient to continue with Naficillin, with persistent elevated white count and questionable related to bilateral heel area necrotic wound may benefit from surgical debridement discussed with the vascular surgery Dictation was produced using [employer] dictation software. please excuse any grammatical, word or spelling errors. Time with Patient: Less than 30
[2023-08-02 17:05] LABS: Glucose,Whole Blood 126 mg/dL (70-110)
--- NOTE | 2023-08-02 19:32 | OP ---
OPERATIVE REPORT DATE OF SERVICE : 08/02/2023 PREOPERATIVE DIAGNOSES: Right heel pressure ulcer, wound measurement is 4 x 3.2 with foul odor smell and also the patient has a pressure ulcer on the left heel, measurement is 4 x 4 cm. Postdebridement is 4 x 3.5 x 1 cm and 4 x 4 x 1 cm. DESCRIPTION OF PROCEDURE: The patient was seen. Right foot and ankle were prepped and draped in appropriate sterile manner. 1% lidocaine plain infiltrated. Using sharp knife, we excised the necrotic skin and devitalized tissue down to subcutaneous tissue. All the devitalized tissue was excised with sharp knife and there were some bleeding points, which were controlled by nitro stick. Medihoney gel applied to the wound and pressure dressing applied. The patient tolerated the procedure well. Then, left heel was prepped and draped in appropriate sterile manner. 1% lidocaine plain was infiltrated. Using knife, we excised the wound down to subcutaneous tissue and the fat. All the devitalized tissue was excised. The tissue was sent for deep culture, aerobic, anaerobic. Bleeding points were controlled and dressing was applied with the use of Medihoney gel with pressure dressing. Plan is to change the dressing every other day using Medihoney gel. The patient tolerated the procedure well. MMODL / IJN: [id number] / TALA
[2023-08-02] MEDS: MONTELUKAST 10 MG TAB PO SCH (21:51)
[2023-08-03] MEDS: SODIUM CHLORIDE 0.9% 1,000 ML IV SCH ×2 (00:17→13:14)
[2023-08-03] MEDS: HYDROmorphone 0.5 MG/0.5 ML SYRINGE IVP PRN ×5 (01:51→23:09)
[2023-08-03] MEDS: NAFCILLIN 2 GM in DEXTROSE 5% IN WATER 100 ML IVPB SCH ×14 (01:52→20:08)
[2023-08-03] MEDS: NYSTATIN 100,000 UNIT/ML SUSP 500,000 UNIT/5 ML CUP PO SCH ×4 (08:12→21:05)
[2023-08-03] MEDS: METOPROLOL TARTRATE 50 MG TAB PO SCH ×2 (08:13→20:08)
[2023-08-03] MEDS: SODIUM BICARBONATE TAB 650 MG TAB PO SCH ×2 (08:13→20:08)
[2023-08-03] MEDS: MIDODRINE 5 MG TAB PO SCH ×3 (08:13→17:36)
[2023-08-03] MEDS: PRAVASTATIN SODIUM 20 MG TAB PO SCH (08:13)
[2023-08-03] MEDS: ASPIRIN 81 MG PO SCH (08:13)
[2023-08-03] MEDS: ASCORBIC ACID 500 MG TAB PO SCH (08:13)
[2023-08-03] MEDS: ENOXAPARIN 30 MG/0.3 ML SYRINGE SQ SCH (08:13)
[2023-08-03] MEDS: metroNIDAZOLE 500 MG TAB PO SCH ×3 (08:13→21:05)
[2023-08-03] MEDS: HYDROPHILIC CREAM 180 GM TUBE TOPICAL SCH (08:13)
[2023-08-03] MEDS: CHOLESTYRAMINE (WITH SUGAR) 4 GM PACKET PO SCH ×3 (08:13→20:15)
[2023-08-03] MEDS: FLUoxetine HCL 20 MG CAP PO SCH (08:13)
[2023-08-03] MEDS: PANTOPRAZOLE 40 MG TABLET PO SCH (08:13)
[2023-08-03 08:52] LABS: HCT 25.6 % (37.2-46.3); HGB 7.7 d/dL (12.0-15.0); MCH 31.6 pg (27.0-32.0); MCHC 30.1 d/dL (32.0-37.0); MCV 104.9 FL (80.0-97.0); Mean Platelet Volume 11.2 FL (9.5-12.2); NRBC Per 100 WBC 0 X 10*3/uL (0.00-0.01); Platelet Count 303 X 10*3/uL (140-440); RBC 2.44 X 10*6/uL (4.10-5.20); RDW 15.2 % (11.5-14.5); WBC 18.17 X 10*3/uL (4.50-10.00)
[2023-08-03 09:01] LABS: ALT 10 U/L (8-44); AST 22 U/L (13-35); Albumin 2.7 d/dL (3.8-4.9); Alkaline Phosphatase 79 U/L (41-126); BUN/Creat Ratio 29.32 Ratio (12.00-20.00); Blood Urea Nitrogen 90.9 mg/dL (9.0-27.0); Carbon Dioxide 23.2 mmol/L (21.6-31.8); Chloride 99 mmol/L (96-109); Glucose 104 mg/dL (70-110); Potassium 3.9 mmol/L (3.5-5.5); Sodium 139 mmol/L (135-145); Total Bilirubin 0.4 mg/dL (0.3-1.2); Total Protein 5.7 d/dL (6.2-8.2)
[2023-08-03 09:18] LABS: Basophils # (M) 0 X 10*3/uL (0.00-0.10); Neutrophils % (M) 81 %
[2023-08-03 09:19] LABS: Eosinophils # (M) 0.36 X 10*3/uL (0.04-0.35); Hypochromasia (M) 2+; Lymphocytes # (M) 0.91 X 10*3/uL (0.90-5.00); Macrocytosis (M) 2+; Metamyelocytes % 2 % (0-0); Monocytes # (M) 0.73 X 10*3/uL (0.20-1.00); Myelocytes % 5 % (0-0); Neutrophils # (M) 14.72 X 10*3/uL (1.80-7.70); Promyelocytes # (M) 0.18 k/uL (0); Promyelocytes % 1 %
--- NOTE | 2023-08-03 10:03 | P.PN ---
Subjective Progress Note Date: 08/03/23 This is an 82-year-old female patient with an extensive medical history who presented to the ER with concerns of atrial flutter with RVR and rash. Patient remains with left femoral dialysis port. Concerns of possible ALLERGIC reaction due to antibiotics patient was given Benadryl and Solu-Medrol. Patient is a poor historian unable to recall recent events. Past medical history includes hyperlipidemia hypertension, end-stage renal disease requiring hemodialysis during previous hospitalization, osteoarthritis, GERD. Chest x-ray completed showing vascular congestion. EKG completed showing sinus tachycardia possible atrial flutter rate 144. White blood cell elevated 21.4, creatinine 2.63, bun 5 4. BNP 9640. Troponin 0.404, 0.7 696 and 1.360. Wound noted to left lower extremity. Patient was started on heparin for elevated troponins and Cardizem. Patient started on IV vancomycin. 2-D echo ordered. Unclear patient has been receiving hemodialysis. Attempting to obtain medical records. Cardiology, nephrology infectious disease and wound care service is consulted. Blood culture ordered. Repeat labs will be ordered. At this time patient is resting comfortably in bed. Current vital signs temp 98.5, heart rate 108, respiratory rate 20, blood pressure 131/72 with a pulse ox 93% on room air On 07/28/2023 patient was seen and examined on the medical floor she is alert and oriented 3 in no apparent distress, she is complaining of severe pain in the lower extremity especially at the time of dressing change, she is also complaining of fatigue and generalized weakness, otherwise she denies any complaints there is no fever or chills no headache or dizziness no chest pain no shortness of breath no cough no nausea or vomiting no abdominal pain no diarrhea no burning with urination no frequency or urgency and no hematuria. On 07/29/2023 patient is alert and oriented 3. Patient had hemodialysis cath removed with tip culture for source of infection. Blood cultures showing presumptive staph aureus. Infectious disease are following. Patient remains on IV antibiotic. White blood cell is trending down 18.8. Current vital signs temp 97.4, heart rate 87, respiratory rate 18, blood pressure 117/74 with a pulse ox 97% on room air On 07/30/2023 patient was seen and examined on the telemetry floor she is alert and oriented 3 in no apparent distress, she is complaining of generalized weakness, otherwise she denies any complaints, vital exam reveals a temperature of 98.4 pulse 71 respiration 14 blood pressure 115/67 pulse ox 95% on room air sodium 136 potassium 4.1 chloride 101 CO2 19 BUN 108 creatinine 2.59, patient is improving gradually, PT and OT consult, she remains on IV antibiotics, will follow closely On 07/31/2023 patient was seen and examined on the telemetry floor she is alert and oriented 3 in no apparent distress she is still complaining of weakness and complaining of low back pain otherwise she denies any complaints there is no fever or chills no headache or dizziness no chest pain no shortness of breath no cough no nausea or vomiting no abdominal pain no diarrhea and no urinary symptoms. Labs today are still pending, yesterday white blood count was still elevated at 20.7 BUN 108 creatinine 2.59 will continue with current antibiotics infectious disease are following On 08/01/2023 patient was seen and examined on the telemetry floor she is alert and oriented 3 in no apparent distress she is complaining of generalized weakness and low back pain, otherwise she denies any complaints there is no fever or chills no headache or dizziness no chest pain no shortness of breath no cough no nausea or vomiting no abdominal pain no diarrhea and no urinary symptoms. Today white blood count is 23.9 hemoglobin 8.5 platelet count 180 BUN 19 9 creatinine 3.2 On 08/02/2023 patient is alert and oriented 3 currently sitting up in bed eating breakfast. Repeat blood culture has been ordered per infectious disease due to continuing leukocytosis. Antibiotics adjusted to nafcillin per ID. Current vital signs temp 97.6, heart rate 77, respiratory rate 18, blood pressure 87/53 with pulse ox 96% on room. Patient denies chest pain or short ness breath. Patient denies nausea vomiting or diarrhea. Patient denies any urinary burning or frequency On 08/03/2023 patient is alert and oriented 3 currently resting in bed eating breakfast. Patient underwent debridement of right heel pressure ulcer with Dr. Miranda yesterday. White blood cell today slightly improved at 18.17. Creatinine 3.1 nephrology.\, infectious disease and wound care service is following. Patient denies chest pain or shortness of breath. Patient denies nausea vomiting or diarrhea. Patient denies any urinary burning or frequency Objective - Vital Signs Vital signs: Vital Signs Temp 97.7 F 08/03/23 06:55 Pulse 65 08/03/23 06:55 Resp 18 08/03/23 06:55 BP 102/57 08/03/23 06:55 Pulse Ox 95 08/03/23 06:55 FiO2 Intake & Output 08/02/23 08/03/23 08/03/23 18:59 06:59 18:59 Output Total 200 250 Balance -200 -250 Weight 77.111 kg Output: Urine 200 250 Other: Voiding Method External Catheter External Catheter - Exam Head normocephalic Neck supple Lungs diminished bilaterally Heart regular rate and rhythm S1-S2, no rub or gallop Abdomen is soft nontender nondistended positive bowel sounds no hepatosplenomegaly Extremities multiple wounds to lower extremities Neuro alert and orientated to 3 - Labs CBC & Chem 7: 08/03/23 04:58 08/03/23 04:58 Labs: Abnormal Lab Results - Last 24 Hours (Table) 08/02/23 08/02/23 08/02/23 Range/Units 06:22 06:22 12:19 WBC 21.62 H (4.50-10.00) X 10*3/uL RBC 2.30 L (4.10-5.20) X 10*6/uL Hgb 7.3 L (12.0-15.0) d/dL Hct 24.3 L (37.2-46.3) % MCV 105.7 H (80.0-97.0) FL MCHC 30.0 L (32.0-37.0) d/dL RDW 15.0 H (11.5-14.5) % Eosinophils # (Manual) 0.86 H (0.04-0.35) X 10*3/uL NRBC/100 WBC Diff 0.02 H (0.00-0.01) X 10*3/uL Hypochromasia (manual) Macrocytosis (manual) Anion Gap 15.20 H (4.00-12.00) mmol/L BUN 97.2 H (9.0-27.0) mg/dL Creatinine 3.0 H (0.6-1.5) mg/dL Est GFR (CKD-EPI) 15 L (>=60) BUN/Creatinine Ratio 32.40 H (12.00-20.00) Ratio POC Glucose (mg/dL) 112 H (70-110) mg/dL Calcium 8.5 L (8.7-10.3) mg/dL Total Bilirubin <0.2 L (0.3-1.2) mg/dL Total Protein 5.5 L (6.2-8.2) d/dL Albumin 2.6 L (3.8-4.9) d/dL Albumin/Globulin Ratio 0.90 L (1.60-3.17) Ratio 08/02/23 08/03/23 08/03/23 Range/Units 17:03 04:58 04:58 WBC 18.17 H (4.50-10.00) X 10*3/uL RBC 2.44 L (4.10-5.20) X 10*6/uL Hgb 7.7 L (12.0-15.0) d/dL Hct 25.6 L (37.2-46.3) % MCV 104.9 H (80.0-97.0) FL MCHC 30.1 L (32.0-37.0) d/dL RDW 15.2 H (11.5-14.5) % Eosinophils # (Manual) 0.36 H (0.04-0.35) X 10*3/uL NRBC/100 WBC Diff (0.00-0.01) X 10*3/uL Hypochromasia (manual) 2+ A Macrocytosis (manual) 2+ A Anion Gap 16.80 H (4.00-12.00) mmol/L BUN 90.9 H (9.0-27.0) mg/dL Creatinine 3.1 H (0.6-1.5) mg/dL Est GFR (CKD-EPI) 14 L (>=60) BUN/Creatinine Ratio 29.32 H (12.00-20.00) Ratio POC Glucose (mg/dL) 126 H (70-110) mg/dL Calcium 8.0 L (8.7-10.3) mg/dL Total Bilirubin (0.3-1.2) mg/dL Total Protein 5.7 L (6.2-8.2) d/dL Albumin 2.7 L (3.8-4.9) d/dL Albumin/Globulin Ratio 0.90 L (1.60-3.17) Ratio Microbiology - Last 24 Hours (Table) 07/28/23 16:20 Catheter Tip Culture - Final Catheter Tip Staphylococcus aureus 08/01/23 14:44 Blood Culture - Preliminary Blood 07/28/23 07:35 Blood Culture Gram Stain - Final Blood Blood Culture - Final Staphylococcus aureus Assessment and Plan Assessment: 1. Atrial flutter with RVR 2. Possible ALLERGIC reaction 3. Right lower Cellulitis with multiple wounds 4. Acute renal failure patient was started on hemodialysis during previous admission right femoral dialysis catheter in place. Unclear if patient is still receiving hemodialysis [facility] facility attempting to obtain medical records. Catheter removed and cultured 5. Elevated troponins 6. History of recent admission following fall with rhabdomyolysis 7. Recent urinary tract infection with E. coli bacteremia 8. Recent treatment for suspected C. diff 9. 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 GI prophylaxis Protonix Cardiology, nephrology, infectious disease and wound care service is consulted Hemodialysis catheter removed and cultured. Status post wound debridement on 08/02/2023 Patient remains on IV antibiotics Repeat blood cultures ordered per ID on 08/01/2023
--- NOTE | 2023-08-03 10:47 | P.PN ---
Subjective Patient is seen in follow for acute kidney injury. Has been voiding. Renal function stable. No vomiting or diarrhea. No chest pain or shortness of breath. Blood pressure stable. Vital signs are stable. General: No acute distress. HEENT: Head exam is unremarkable. LUNGS: No audible rhonchi or wheezes. HEART: Rate and Rhythm are regular. ABDOMEN: Nontender. EXTREMITITES: No edema. Lower extremity is wrapped. No drainage. Objective - Vital Signs Vital signs: Vital Signs Temp 97.7 F 08/03/23 06:55 Pulse 65 08/03/23 06:55 Resp 18 08/03/23 06:55 BP 102/57 08/03/23 06:55 Pulse Ox 95 08/03/23 06:55 FiO2 Intake & Output 08/02/23 08/03/23 08/03/23 18:59 06:59 18:59 Output Total 200 250 Balance -200 -250 Weight 77.111 kg Output: Urine 200 250 Other: Voiding Method External Catheter External Catheter - Labs CBC & Chem 7: 08/03/23 04:58 08/03/23 04:58 Labs: Abnormal Lab Results - Last 24 Hours (Table) 08/02/23 08/02/23 08/02/23 Range/Units 06:22 06:22 12:19 WBC 21.62 H (4.50-10.00) X 10*3/uL RBC 2.30 L (4.10-5.20) X 10*6/uL Hgb 7.3 L (12.0-15.0) d/dL Hct 24.3 L (37.2-46.3) % MCV 105.7 H (80.0-97.0) FL MCHC 30.0 L (32.0-37.0) d/dL RDW 15.0 H (11.5-14.5) % Eosinophils # (Manual) 0.86 H (0.04-0.35) X 10*3/uL NRBC/100 WBC Diff 0.02 H (0.00-0.01) X 10*3/uL Hypochromasia (manual) Macrocytosis (manual) Anion Gap 15.20 H (4.00-12.00) mmol/L BUN 97.2 H (9.0-27.0) mg/dL Creatinine 3.0 H (0.6-1.5) mg/dL Est GFR (CKD-EPI) 15 L (>=60) BUN/Creatinine Ratio 32.40 H (12.00-20.00) Ratio POC Glucose (mg/dL) 112 H (70-110) mg/dL Calcium 8.5 L (8.7-10.3) mg/dL Total Bilirubin <0.2 L (0.3-1.2) mg/dL Total Protein 5.5 L (6.2-8.2) d/dL Albumin 2.6 L (3.8-4.9) d/dL Albumin/Globulin Ratio 0.90 L (1.60-3.17) Ratio 08/02/23 08/03/23 08/03/23 Range/Units 17:03 04:58 04:58 WBC 18.17 H (4.50-10.00) X 10*3/uL RBC 2.44 L (4.10-5.20) X 10*6/uL Hgb 7.7 L (12.0-15.0) d/dL Hct 25.6 L (37.2-46.3) % MCV 104.9 H (80.0-97.0) FL MCHC 30.1 L (32.0-37.0) d/dL RDW 15.2 H (11.5-14.5) % Eosinophils # (Manual) 0.36 H (0.04-0.35) X 10*3/uL NRBC/100 WBC Diff (0.00-0.01) X 10*3/uL Hypochromasia (manual) 2+ A Macrocytosis (manual) 2+ A Anion Gap 16.80 H (4.00-12.00) mmol/L BUN 90.9 H (9.0-27.0) mg/dL Creatinine 3.1 H (0.6-1.5) mg/dL Est GFR (CKD-EPI) 14 L (>=60) BUN/Creatinine Ratio 29.32 H (12.00-20.00) Ratio POC Glucose (mg/dL) 126 H (70-110) mg/dL Calcium 8.0 L (8.7-10.3) mg/dL Total Bilirubin (0.3-1.2) mg/dL Total Protein 5.7 L (6.2-8.2) d/dL Albumin 2.7 L (3.8-4.9) d/dL Albumin/Globulin Ratio 0.90 L (1.60-3.17) Ratio Microbiology - Last 24 Hours (Table) 07/28/23 16:20 Catheter Tip Culture - Final Catheter Tip Staphylococcus aureus 08/01/23 14:44 Blood Culture - Preliminary Blood 07/28/23 07:35 Blood Culture Gram Stain - Final Blood Blood Culture - Final Staphylococcus aureus Assessment and Plan Plan: Assessment: 1. Acute kidney injury secondary to ATN secondary to severe sepsis and rhabdomyolysis. Patient required hemodialysis but now has been off hemodialysis for over a week. Baseline creatinine prior to acute kidney injury episode was near 0.8. Creatinine this admission has been in the range of 2.6- 3.2. Establish new baseline renal function. Nonoliguric. Ultrasound from 06/11/2023 showed no hydronephrosis. 2. Staph aureus bacteremia status post removal of groin dialysis catheter. On antibiotics. Catheter tip culture positive for staph aureus. 3. Hyperphosphatemia secondary to acute kidney injury maintained on Renvela. Phosphorus level 4.7 dated 07/27/2023. 4. Anemia. Possibly component of chronic kidney disease. On Aranesp. 5. Volume overload. Status post diuresis. Improved. 6. Metabolic acidosis secondary to acute kidney injury maintained on oral bicarb. 7. Chronic diastolic CHF with mild to moderate mitral regurgitation. Plan: Encouraged oral intake. Decrease rate of normal saline to 50 mL an hour. Maintain midodrine. Hold for systolic blood pressure greater than 110. Continue to monitor renal function and urine output.
--- NOTE | 2023-08-03 12:17 | P.PN ---
Subjective Progress Note Date: 08/03/23 Principal diagnosis: MSSA bacteremia Patient is a 82-year-old female with a past medical history significant for hypertension hyperlipidemia history of chronic lower extremity venous stasis ulcer with recent admission to the hospital have E. coli bacteremia patient did develop ATN requiring hemodialysis patient was subsequently stabilized and transferred to local shelter for rehabilitation , patient did have improvement her kidney function and did not require any further dialysis however the patient continued to have right groin dialysis catheter no presenting to the hospital with weakness tachycardia and did have a positive blood culture with MSSA. Patient did have a mole of the right groin dialysis catheter by vascular surgery on 07/28/2023, patient did have deployment of bilateral heel wound by Dr. Rodríguez on 08/02/2023 On today's evaluation that is 08/03/2023, the patient continues to be afebrile, the patient is breathing on room air, the patient denies chest pain and no cough, patient denies abdominal pain, no nausea/vomiting /diarrhea Patient did have white count is slightly down to 18.17, creatinine is 3.1, catheter tip positive blood culture repeated on 07/28/2023 also positive, blood culture from 08/01/2023 so far pending Objective - Vital Signs Vital signs: Vital Signs Temp 97.7 F 08/03/23 06:55 Pulse 65 08/03/23 06:55 Resp 18 08/03/23 06:55 BP 102/57 08/03/23 06:55 Pulse Ox 95 08/03/23 06:55 FiO2 Intake & Output 08/02/23 08/03/23 08/03/23 18:59 06:59 18:59 Output Total 200 250 Balance -200 -250 Weight 77.111 kg Output: Urine 200 250 Other: Voiding Method External Catheter External Catheter External Catheter - Exam GENERAL DESCRIPTION: An elderly female lying in bed in no distress RESPIRATORY SYSTEM: Unlabored breathing , decreased breath sounds at bases HEART: S1 S2 regular rate and rhythm , ABDOMEN: Soft , no tenderness EXTREMITIES: Right lower extremity wound base is clean no surrounding redness - Labs CBC & Chem 7: 08/03/23 04:58 08/03/23 04:58 Labs: Abnormal Lab Results - Last 24 Hours (Table) 08/02/23 08/02/23 08/03/23 Range/Units 12:19 17:03 04:58 WBC 18.17 H (4.50-10.00) X 10*3/uL RBC 2.44 L (4.10-5.20) X 10*6/uL Hgb 7.7 L (12.0-15.0) d/dL Hct 25.6 L (37.2-46.3) % MCV 104.9 H (80.0-97.0) FL MCHC 30.1 L (32.0-37.0) d/dL RDW 15.2 H (11.5-14.5) % Eosinophils # (Manual) 0.36 H (0.04-0.35) X 10*3/uL Hypochromasia (manual) 2+ A Macrocytosis (manual) 2+ A Anion Gap (4.00-12.00) mmol/L BUN (9.0-27.0) mg/dL Creatinine (0.6-1.5) mg/dL Est GFR (CKD-EPI) (>=60) BUN/Creatinine Ratio (12.00-20.00) Ratio POC Glucose (mg/dL) 112 H 126 H (70-110) mg/dL Calcium (8.7-10.3) mg/dL Total Protein (6.2-8.2) d/dL Albumin (3.8-4.9) d/dL Albumin/Globulin Ratio (1.60-3.17) Ratio 08/03/ Range/Units 04:58 WBC (4.50-10.00) X 10*3/uL RBC (4.10-5.20) X 10*6/uL Hgb (12.0-15.0) d/dL Hct (37.2-46.3) % MCV (80.0-97.0) FL MCHC (32.0-37.0) d/dL RDW (11.5-14.5) % Eosinophils # (Manual) (0.04-0.35) X 10*3/uL Hypochromasia (manual) Macrocytosis (manual) Anion Gap 16.80 H (4.00-12.00) mmol/L BUN 90.9 H (9.0-27.0) mg/dL Creatinine 3.1 H (0.6-1.5) mg/dL Est GFR (CKD-EPI) 14 L (>=60) BUN/Creatinine Ratio 29.32 H (12.00-20.00) Ratio POC Glucose (mg/dL) (70-110) mg/dL Calcium 8.0 L (8.7-10.3) mg/dL Total Protein 5.7 L (6.2-8.2) d/dL Albumin 2.7 L (3.8-4.9) d/dL Albumin/Globulin Ratio 0.90 L (1.60-3.17) Ratio Microbiology - Last 24 Hours (Table) 07/28/23 16:20 Catheter Tip Culture - Final Catheter Tip Staphylococcus aureus 08/01/23 14:44 Blood Culture - Preliminary Blood 07/28/23 07:35 Blood Culture Gram Stain - Final Blood Blood Culture - Final Staphylococcus aureus Assessment and Plan (1) Cellulitis Current Visit: Yes Status: Acute Code(s): L03.90 - CELLULITIS, UNSPECIFIED SNOMED Code(s): 225997484 (2) Leukocytosis Current Visit: Yes Status: Acute Code(s): D72.829 - ELEVATED WHITE BLOOD CELL COUNT, UNSPECIFIED SNOMED Code(s): 072556421 (3) Stage II pressure ulcer of left buttock Current Visit: Yes Status: Acute Code(s): L89.322 - PRESSURE ULCER OF LEFT BUTTOCK, STAGE 2 SNOMED Code(s): 40081948396340 (4) Stage II pressure ulcer of left heel Current Visit: Yes Status: Acute Code(s): L89.622 - PRESSURE ULCER OF LEFT HEEL, STAGE 2 SNOMED Code(s): 34883481066806 (5) Stage II pressure ulcer of right buttock Current Visit: Yes Status: Acute Code(s): L89.312 - PRESSURE ULCER OF RIGHT BUTTOCK, STAGE 2 SNOMED Code(s): 68301259664934 (6) MSSA bacteremia Current Visit: Yes Status: Acute Code(s): R78.81 - BACTEREMIA; B95.61 - ME THICILLIN SUSCEP STAPH INFCT CAUSING DIS CLASSD ELSWHR SNOMED Code(s): 42 1769748 Plan: 1patient presented to hospital with tachycardia patient did have a low-grade fever and elevated white count and MSSA bacteremia source is likely dialysis c atheter infection which has been discontinued 2-right lower extremity wound care with a dry Aquacel dressing and Daniel wrap for compression 3-we will apply zinc to the excoriated skin to the bilateral gluteal and sacral area keep the area of the pressure 4 blood culture repeated on 07/28/2023 positive we will repeat a blood cultures on 08/01/2023 so far pending 5patient white count is trending down, we will continue with Naficillin and monitor clinical course closely Dictation was produced using Xceive dictation software. please excuse any grammatical, word or spelling errors. Time with Patient: Less than 30
[2023-08-03] MEDS: SEVELAMER 800 MG TAB PO SCH ×2 (13:14→17:36)
[2023-08-03 16:47] LABS: % Iron Saturation 33.73 (12.00-45.00)
[2023-08-03] MEDS: MONTELUKAST 10 MG TAB PO SCH (20:07)
--- NOTE | 2023-08-03 20:31 | CDI ---
Documentation Clarification Form Date: 08/03/2023 08:08:32 PM From: Hiwot Feliciano RN, CCDS Admit Date: 07/27/2023 04:05:00 AM Patient Name: Dania Vergara Visit Number: [id number] Discharge Date: ATTENTION: The Clinical Documentation Specialists (CDI) and [facility] Coding Staff appreciate your assistance in clarifying documentation. Please respond to the clarification below the line at the bottom and electronically sign. The CDI & [facility] Coding staff will review the response and follow-up if needed. Please note: Queries are made part of the Legal Health Record. If you have any questions, please contact the author of this message via ITS. Dr. Ten Guerrero The patient has sepsis documentation in the ID query response on 08/02/23. Based on this information and the findings below, is there an additional diagnosis that is clinically appropriate for this patient? 08/02/23 ID: Sepsis due to MSSA bacteremia secondary to HD Cath POA History/Risk Factors: GERD/Reflux, Hyperlipidemia, Hypertension, Osteoarthritis (OA), Renal Disease, Skin Disorder, Staph aureus bacteremia Clinical Indicators:82-year-old female present with left femoral dialysis port. She is apparently on antibiotics currently. There was suspected ALLERGIC reaction. She continue to have right groin dialysis catheter now presenting to the hospital with weakness tachycardia and did have a positive blood culture with MSSA . 07/27 WBC 21.4 Neutrophils 20.3 Na+131 CL 97 BUN 54, CR 2.63 GFR 16, NA+ 1.3 BNP 9640 Troponin 0.796 07/29 Labs: UA: Large Leukocyte Esterase, wbc 81 07/27 Blood cultures: Staphylococcus aureus 07/28 Catheter Tip Culture: Staphylococcus aureus 07/26 Vital signs: 138/78 142 19 98.6 93% RA, 131/80 134 21 99.1 93/5 RA Treatment: 07/28 Remove dialysis catheter tip sent for culture Cefazolin 2 GM IVPB Q12 07/27 -08/01 Flagyl 500 MG PO TID Vancomycin 1,250 MG IVPB Once 07/27 (PTD) DC Nafcillin Sodium 2 GM IVPB Q4 HRS 08/01 Is there an additional diagnosis that is clinically appropriate for this patient? [ xxxx ] Sepsis due to MSSA bacteremia secondary to HD Cath POA [ ] Sepsis ruled out. [ ] Other, please specify [ ] Unable to determine SIRS Criteria: 2 or more of the following may indicate SIRS Temperature < 96.8F (36C) or > 101.0F (38.3C) Heart Rate > 90 bpm Respiratory Rate > 20 breaths/min or PaCO2 < 32 mmHg White Blood Cell Count > 12,000 or < 4,000 cells/mm3 or > 10% bands (Template Last Reviewed: October 2022) MTDD
[2023-08-03] MEDS: LOPERAMIDE 2 MG CAP PO PRN (23:10)
[2023-08-04] MEDS: NAFCILLIN 2 GM in DEXTROSE 5% IN WATER 100 ML IVPB SCH ×12 (00:33→20:50)
[2023-08-04] MEDS: HYDROmorphone 0.5 MG/0.5 ML SYRINGE IVP PRN ×3 (06:18→21:02)
[2023-08-04] MEDS: PANTOPRAZOLE 40 MG TABLET PO SCH (07:25)
[2023-08-04] MEDS: METOPROLOL TARTRATE 50 MG TAB PO SCH ×2 (07:25→20:50)
[2023-08-04] MEDS: FLUoxetine HCL 20 MG CAP PO SCH (07:25)
[2023-08-04] MEDS: MIDODRINE 5 MG TAB PO SCH ×3 (07:25→18:05)
[2023-08-04] MEDS: SODIUM BICARBONATE TAB 650 MG TAB PO SCH ×2 (07:25→20:50)
[2023-08-04] MEDS: NYSTATIN 100,000 UNIT/ML SUSP 500,000 UNIT/5 ML CUP PO SCH ×4 (07:25→20:59)
[2023-08-04] MEDS: metroNIDAZOLE 500 MG TAB PO SCH ×3 (07:25→20:59)
[2023-08-04] MEDS: ASPIRIN 81 MG PO SCH (07:25)
[2023-08-04] MEDS: HYDROPHILIC CREAM 180 GM TUBE TOPICAL SCH (07:26)
[2023-08-04] MEDS: CHOLESTYRAMINE (WITH SUGAR) 4 GM PACKET PO SCH ×2 (07:26→19:53)
[2023-08-04] MEDS: PRAVASTATIN SODIUM 20 MG TAB PO SCH (07:26)
[2023-08-04] MEDS: ENOXAPARIN 30 MG/0.3 ML SYRINGE SQ SCH (07:26)
[2023-08-04] MEDS: ASCORBIC ACID 500 MG TAB PO SCH (07:27)
[2023-08-04] MEDS: SODIUM CHLORIDE 0.9% 1,000 ML IV SCH ×2 (10:25→18:06)
--- NOTE | 2023-08-04 12:22 | P.PN ---
Subjective Patient is seen in follow for acute kidney injury. Has been voiding. Renal function stable. No vomiting or diarrhea. No chest pain or shortness of breath. Blood pressure stable but on the lower side. No active complaints. Oral intake fair. Vital signs are stable. General: No acute distress. HEENT: Head exam is unremarkable. LUNGS: No audible rhonchi or wheezes. HEART: Rate and Rhythm are regular. ABDOMEN: Nontender. EXTREMITITES: No edema. Lower extremity is wrapped. No drainage. Objective - Vital Signs Vital signs: Vital Signs Temp 97.6 F 08/04/23 07:02 Pulse 62 08/04/23 07:02 Resp 18 08/04/23 07:02 BP 95/60 08/04/23 08:45 Pulse Ox 94 L 08/04/23 07:02 FiO2 Intake & Output 08/03/23 08/04/23 08/04/23 18:59 06:59 18:59 Intake Total 750 700 Output Total 300 Balance 750 400 Intake: Intake, IV Titration 750 700 Amount Nafcillin 2 gm In 150 300 Dextrose 5% in Water 100 ml @ 50 mls/hr IVPB Q4H LOIDA Rx#:[id number] Sodium Chloride 0.9% 1, 600 400 000 ml @ 50 mls/hr IV . Q20H LOIDA Rx#:[id number] Output: Urine 300 Other: Voiding Method External Catheter External Catheter External Catheter # Bowel Movements 1 - Labs CBC & Chem 7: 08/03/23 04:58 08/03/23 04:58 Labs: Abnormal Lab Results - Last 24 Hours (Table) 08/02/23 08/03/23 08/03/23 Range/Units 06:22 04:58 04:58 Neutrophils # (Manual) 16.43 H 14.72 H (1.80-7.70) X 10*3/uL Promyelocytes # (Man) 0.18 H (0) k/uL Transferrin 180.0 L (204.0-354.0) mg/dL Folate (4.40-31.00) ng/mL 08/03/23 Range/Units 04:58 Neutrophils # (Manual) (1.80-7.70) X 10*3/uL Promyelocytes # (Man) (0) k/uL Transferrin (204.0-354.0) mg/dL Folate 3.10 L (4.40-31.00) ng/mL Microbiology - Last 24 Hours (Table) 08/01/23 14:44 Blood Culture - Preliminary Blood 07/28/23 16:20 Catheter Tip Culture - Final Catheter Tip Staphylococcus aureus Assessment and Plan Plan: Assessment: 1. Acute kidney injury secondary to ATN secondary to severe sepsis and rhabdomyolysis. Patient required hemodialysis but now has been off hemodialysis for over a week. Baseline creatinine prior to acute kidney injury episode was near 0.8. Creatinine this admission has been in the range of 2.6-3.2. Establish new baseline renal function. Nonoliguric. Ultrasound from 06/11/2023 showed no hydronephrosis. 2. Staph aureus bacteremia status post removal of groin dialysis catheter. On antibiotics. Catheter tip culture positive for staph aureus. 3. Hyperphosphatemia secondary to acute kidney injury maintained on Renvela. Phosphorus level 4.7 dated 07/27/2023. 4. Anemia. Possibly component of chronic kidney disease. On Aranesp. 5. Volume overload. Status post diuresis. Improved. 6. Metabolic acidosis secondary to acute kidney injury maintained on oral bicarb. 7. Chronic diastolic CHF with mild to moderate mitral regurgitation. Plan: Encouraged oral intake. Maintain gentle IV hydration. Increase dose of midodrine. Hold for systolic blood pressure greater than 110. Continue to monitor renal function and urine output.
--- NOTE | 2023-08-04 13:01 | P.PN ---
Subjective Progress Note Date: 08/04/23 This is an 82-year-old female patient with an extensive medical history who presented to the ER with concerns of atrial flutter with RVR and rash. Patient remains with left femoral dialysis port. Concerns of possible ALLERGIC reaction due to antibiotics patient was given Benadryl and Solu-Medrol. Patient is a poor historian unable to recall recent events. Past medical history includes hyperlipidemia hypertension, end-stage renal disease requiring hemodialysis during previous hospitalization, osteoarthritis, GERD. Chest x-ray completed showing vascular congestion. EKG completed showing sinus tachycardia possible atrial flutter rate 144. White blood cell elevated 21.4, creatinine 2.63, bun 5 4. BNP 9640. Troponin 0.404, 0.7 696 and 1.360. Wound noted to left lower extremity. Patient was started on heparin for elevated troponins and Cardizem. Patient started on IV vancomycin. 2-D echo ordered. Unclear patient has been receiving hemodialysis. Attempting to obtain medical records. Cardiology, nephrology infectious disease and wound care service is consulted. Blood culture ordered. Repeat labs will be ordered. At this time patient is resting comfortably in bed. Current vital signs temp 98.5, heart rate 108, respiratory rate 20, blood pressure 131/72 with a pulse ox 93% on room air On 07/28/2023 patient was seen and examined on the medical floor she is alert and oriented 3 in no apparent distress, she is complaining of severe pain in the lower extremity especially at the time of dressing change, she is also complaining of fatigue and generalized weakness, otherwise she denies any complaints there is no fever or chills no headache or dizziness no chest pain no shortness of breath no cough no nausea or vomiting no abdominal pain no diarrhea no burning with urination no frequency or urgency and no hematuria. On 07/29/2023 patient is alert and oriented 3. Patient had hemodialysis cath removed with tip culture for source of infection. Blood cultures showing presumptive staph aureus. Infectious disease are following. Patient remains on IV antibiotic. White blood cell is trending down 18.8. Current vital signs temp 97.4, heart rate 87, respiratory rate 18, blood pressure 117/74 with a pulse ox 97% on room air On 07/30/2023 patient was seen and examined on the telemetry floor she is alert and oriented 3 in no apparent distress, she is complaining of generalized weakness, otherwise she denies any complaints, vital exam reveals a temperature of 98.4 pulse 71 respiration 14 blood pressure 115/67 pulse ox 95% on room air sodium 136 potassium 4.1 chloride 101 CO2 19 BUN 108 creatinine 2.59, patient is improving gradually, PT and OT consult, she remains on IV antibiotics, will follow closely On 07/31/2023 patient was seen and examined on the telemetry floor she is alert and oriented 3 in no apparent distress she is still complaining of weakness and complaining of low back pain otherwise she denies any complaints there is no fever or chills no headache or dizziness no chest pain no shortness of breath no cough no nausea or vomiting no abdominal pain no diarrhea and no urinary symptoms. Labs today are still pending, yesterday white blood count was still elevated at 20.7 BUN 108 creatinine 2.59 will continue with current antibiotics infectious disease are following On 08/01/2023 patient was seen and examined on the telemetry floor she is alert and oriented 3 in no apparent distress she is complaining of generalized weakness and low back pain, otherwise she denies any complaints there is no fever or chills no headache or dizziness no chest pain no shortness of breath no cough no nausea or vomiting no abdominal pain no diarrhea and no urinary symptoms. Today white blood count is 23.9 hemoglobin 8.5 platelet count 180 BUN 19 9 creatinine 3.2 On 08/02/2023 patient is alert and oriented 3 currently sitting up in bed eating breakfast. Repeat blood culture has been ordered per infectious disease due to continuing leukocytosis. Antibiotics adjusted to nafcillin per ID. Current vital signs temp 97.6, heart rate 77, respiratory rate 18, blood pressure 87/53 with pulse ox 96% on room. Patient denies chest pain or short ness breath. Patient denies nausea vomiting or diarrhea. Patient denies any urinary burning or frequency On 08/03/2023 patient is alert and oriented 3 currently resting in bed eating breakfast. Patient underwent debridement of right heel pressure ulcer with Dr. Miranda yesterday. White blood cell today slightly improved at 18.17. Creatinine 3.1 nephrology.\, infectious disease and wound care service is following. Patient denies chest pain or shortness of breath. Patient denies nausea vomiting or diarrhea. Patient denies any urinary burning or frequency On 08/04/2023 patient was seen and examined on the medical floor, she is alert and oriented 3 she is complaining of bilateral lower extremity pain especially at the time of dressing change and debridement of her wounds. White blood cell today slightly improved at 18.17. Creatinine 3.1 nephrology.\, infectious disease and wound care service is following. Patient denies chest pain or shortness of breath. Patient denies nausea vomiting or diarrhea. Patient denies any urinary burning or frequency Objective - Vital Signs Vital signs: Vital Signs Temp 97.6 F 08/04/23 07:02 Pulse 62 08/04/23 07:02 Resp 18 08/04/23 07:02 BP 95/60 08/04/23 08:45 Pulse Ox 94 L 08/04/23 07:02 FiO2 Intake & Output 08/03/23 08/04/23 08/04/23 18:59 06:59 18:59 Intake Total 750 700 Output Total 300 Balance 750 400 Intake: Intake, IV Titration 750 700 Amount Nafcillin 2 gm In 150 300 Dextrose 5% in Water 100 ml @ 50 mls/hr IVPB Q4H [facility] Rx#:[id number] Sodium Chloride 0.9% 1, 600 400 000 ml @ 50 mls/hr IV . Q20H LO[facility] Rx#:[id number] Output: Urine 300 Other: Voiding Method External Catheter External Catheter External Catheter # Bowel Movements 1 - Exam Head normocephalic Neck supple Lungs diminished bilaterally Heart regular rate and rhythm S1-S2, no rub or gallop Abdomen is soft nontender nondistended positive bowel sounds no hepatosplenomegaly Extremities multiple wounds to lower extremities Neuro alert and orientated to 3 - Labs CBC & Chem 7: 08/03/23 04:58 08/03/23 04:58 Labs: Abnormal Lab Results - Last 24 Hours (Table) 08/02/23 08/03/23 08/03/23 Range/Units 06:22 04:58 04:58 Neutrophils # (Manual) 16.43 H 14.72 H (1.80-7.70) X 10*3/uL Promyelocytes # (Man) 0.18 H (0) k/uL Transferrin 180.0 L (204.0-354.0) mg/dL Folate (4.40-31.00) ng/mL 08/03/23 Range/Units 04:58 Neutrophils # (Manual) (1.80-7.70) X 10*3/uL Promyelocytes # (Man) (0) k/uL Transferrin (204.0-354.0) mg/dL Folate 3.10 L (4.40-31.00) ng/mL Microbiology - Last 24 Hours (Table) 08/01/23 14:44 Blood Culture - Preliminary Blood 07/28/23 16:20 Catheter Tip Culture - Final Catheter Tip Staphylococcus aureus Assessment and Plan Assessment: 1. Atrial flutter with RVR 2. Possible ALLERGIC reaction 3. Right lower Cellulitis with multiple wounds 4. Acute renal failure patient was started on hemodialysis during previous admission right femoral dialysis catheter in place. Unclear if patient is still receiving hemodialysis [facility] facility attempting to obtain medical records. Catheter removed and cultured 5. Elevated troponins 6. History of recent admission following fall with rhabdomyolysis 7. Recent urinary tract infection with E. coli bacteremia 8. Recent treatment for suspected C. diff 9. 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 GI prophylaxis Protonix Cardiology, nephrology, infectious disease and wound care service is consulted Hemodialysis catheter removed and cultured. Status post wound debridement on 08/02/2023 Patient remains on IV antibiotics Repeat blood cultures ordered per ID on 08/01/2023
[2023-08-04] MEDS: SEVELAMER 800 MG TAB PO SCH ×2 (13:10→18:05)
--- NOTE | 2023-08-04 15:04 | P.PN ---
Subjective Progress Note Date: 08/04/23 Principal diagnosis: MSSA bacteremia Patient is a 82-year-old female with a past medical history significant for hypertension hyperlipidemia history of chronic lower extremity venous stasis ulcer with recent admission to the hospital have E. coli bacteremia patient did develop ATN requiring hemodialysis patient was subsequently stabilized and transferred to local shelter for rehabilitation , patient did have improvement her kidney function and did not require any further dialysis however the patient continued to have right groin dialysis catheter no presenting to the hospital with weakness tachycardia and did have a positive blood culture with MSSA. Patient did have a mole of the right groin dialysis catheter by vascular surgery on 07/28/2023, patient did have deployment of bilateral heel wound by Dr. Rodríguez on 08/02/2023 On today's evaluation that is 08/04/2023, the patient remains to be afebrile, the patient is breathing comfortably on room air , the patient denies chest pain shortness of breath or cough, patient denies nausea/vomiting /diarrhea and no abdominal pain, the patient denies any worsening pain to bilateral heel area Patient did have white count is slightly down to 18.17 as of yesterday no CBC was done today, creatinine is 3.1, catheter tip positive blood culture repeated on 07/28/2023 also positive, blood culture from 08/01/2023 so far pending Objective - Vital Signs Vital signs: Vital Signs Temp 97.6 F 08/04/23 07:02 Pulse 62 08/04/23 07:02 Resp 18 08/04/23 07:02 BP 95/60 08/04/23 08:45 Pulse Ox 94 L 08/04/23 07:02 FiO2 Intake & Output 08/03/23 08/04/23 08/04/23 18:59 06:59 18:59 Intake Total 750 700 Output Total 300 Balance 750 400 Intake: Intake, IV Titration 750 700 Amount Nafcillin 2 gm In 150 300 Dextrose 5% in Water 100 ml @ 50 mls/hr IVPB Q4H [facility] Rx#:[id number] Sodium Chloride 0.9% 1, 600 400 000 ml @ 50 mls/hr IV . Q20H LOIDA Rx#:[id number] Output: Urine 300 Other: Voiding Method External Catheter External Catheter External Catheter # Bowel Movements 1 - Exam GENERAL DESCRIPTION: An elderly female lying in bed in no distress RESPIRATORY SYSTEM: Unlabored breathing , decreased breath sounds at bases HEART: S1 S2 regular rate and rhythm , ABDOMEN: Soft , no tenderness EXTREMITIES: Right lower extremity wound base is clean no surrounding redness - Labs CBC & Chem 7: 08/03/23 04:58 08/03/23 04:58 Labs: Abnormal Lab Results - Last 24 Hours (Table) 08/02/23 08/03/23 08/03/23 Range/Units 06:22 04:58 04:58 Neutrophils # (Manual) 16.43 H 14.72 H (1.80-7.70) X 10*3/uL Promyelocytes # (Man) 0.18 H (0) k/uL Transferrin 180.0 L (204.0-354.0) mg/dL Folate (4.40-31.00) ng/mL 08/03/23 Range/Units 04:58 Neutrophils # (Manual) (1.80-7.70) X 10*3/uL Promyelocytes # (Man) (0) k/uL Transferrin (204.0-354.0) mg/dL Folate 3.10 L (4.40-31.00) ng/mL Microbiology - Last 24 Hours (Table) 08/01/23 14:44 Blood Culture - Preliminary Blood 07/28/23 16:20 Catheter Tip Culture - Final Catheter Tip Staphylococcus aureus Assessment and Plan (1) Cellulitis Current Visit: Yes Status: Acute Code(s): L03.90 - CELLULITIS, UNSPECIFIED SNOMED Code(s): 773867614 (2) Leukocytosis Current Visit: Yes Status: Acute Code(s): D72.829 - ELEVATED WHITE BLOOD CELL COUNT, UNSPECIFIED SNOMED Code(s): 996064585 (3) Stage II pressure ulcer of left buttock Current Visit: Yes Status: Acute Code(s): L89.322 - PRESSURE ULCER OF LEFT BUTTOCK, STAGE 2 SNOMED Code(s): 72478001494678 (4) Stage II pressure ulcer of left heel Current Visit: Yes Status: Acute Code(s): L89.622 - PRESSURE ULCER OF LEFT HEEL, STAGE 2 SNOMED Code(s): 75622326281674 (5) Stage II pressure ulcer of right buttock Current Visit: Yes Status: Acute Code(s): L89.312 - PRESSURE ULCER OF RIGHT BUTTOCK, STAGE 2 SNOMED Code(s): 36164720898810 (6) MSSA bacteremia Current Visit: Yes Status: Acute Code(s): R78.81 - BACTEREMIA; B95.61 - METHICILLIN SUSCEP STAPH INFCT CAUSING DIS CLASSD ELSWHR SNOMED Code(s): 694324829 Plan: 1patient presented to hospital with tachycardia patient did have a low-grade fever and elevated white count and MSSA bacteremia source is likely dialysis catheter infection which has been discontinued 2-right lower extremity wound care with a dry Aquacel dressing and Daniel wrap for compression 3-we will apply zinc to the excoriated skin to the bilateral gluteal and sacral area keep the area of the pressure 4 blood culture repeated on 07/28/2023 positive we will repeat a blood cultures on 08/01/2023 so far pending, patient also have debridement of bilateral heel wounds and those cultures are pending 5patient white count is trending down, we will continue with Naficillin repeat a CBC and inflammatory markers with a.m. lab Dictation was produced using [employer] dictation software. please excuse any grammatical, word or spelling errors.
[2023-08-04] MEDS: MONTELUKAST 10 MG TAB PO SCH (19:53)
[2023-08-05] MEDS: HYDROmorphone 0.5 MG/0.5 ML SYRINGE IVP PRN ×4 (00:16→14:28)
[2023-08-05] MEDS: NAFCILLIN 2 GM in DEXTROSE 5% IN WATER 100 ML IVPB SCH ×12 (00:16→21:42)
[2023-08-05] MEDS: MIDODRINE 5 MG TAB PO SCH ×3 (09:06→17:37)
[2023-08-05] MEDS: ASPIRIN 81 MG PO SCH (09:06)
[2023-08-05] MEDS: FLUoxetine HCL 20 MG CAP PO SCH (09:07)
[2023-08-05] MEDS: PANTOPRAZOLE 40 MG TABLET PO SCH (09:07)
[2023-08-05] MEDS: ASCORBIC ACID 500 MG TAB PO SCH (09:07)
[2023-08-05] MEDS: NYSTATIN 100,000 UNIT/ML SUSP 500,000 UNIT/5 ML CUP PO SCH ×4 (09:07→21:42)
[2023-08-05] MEDS: PRAVASTATIN SODIUM 20 MG TAB PO SCH (09:07)
[2023-08-05] MEDS: metroNIDAZOLE 500 MG TAB PO SCH ×3 (09:07→21:42)
[2023-08-05] MEDS: METOPROLOL TARTRATE 50 MG TAB PO SCH ×2 (09:07→20:25)
[2023-08-05] MEDS: CHOLESTYRAMINE (WITH SUGAR) 4 GM PACKET PO SCH ×2 (09:08→20:25)
[2023-08-05] MEDS: ENOXAPARIN 30 MG/0.3 ML SYRINGE SQ SCH (09:12)
--- NOTE | 2023-08-05 09:58 | P.PN ---
Subjective Progress Note Date: 08/05/23 This is an 82-year-old female patient with an extensive medical history who presented to the ER with concerns of atrial flutter with RVR and rash. Patient remains with left femoral dialysis port. Concerns of possible ALLERGIC reaction due to antibiotics patient was given Benadryl and Solu-Medrol. Patient is a poor historian unable to recall recent events. Past medical history includes hyperlipidemia hypertension, end-stage renal disease requiring hemodialysis during previous hospitalization, osteoarthritis, GERD. Chest x-ray completed showing vascular congestion. EKG completed showing sinus tachycardia possible atrial flutter rate 144. White blood cell elevated 21.4, creatinine 2.63, bun 5 4. BNP 9640. Troponin 0.404, 0.7 696 and 1.360. Wound noted to left lower extremity. Patient was started on heparin for elevated troponins and Cardizem. Patient started on IV vancomycin. 2-D echo ordered. Unclear patient has been receiving hemodialysis. Attempting to obtain medical records. Cardiology, nephrology infectious disease and wound care service is consulted. Blood culture ordered. Repeat labs will be ordered. At this time patient is resting comfortably in bed. Current vital signs temp 98.5, heart rate 108, respiratory rate 20, blood pressure 131/72 with a pulse ox 93% on room air On 07/28/2023 patient was seen and examined on the medical floor she is alert and oriented 3 in no apparent distress, she is complaining of severe pain in the lower extremity especially at the time of dressing change, she is also complaining of fatigue and generalized weakness, otherwise she denies any complaints there is no fever or chills no headache or dizziness no chest pain no shortness of breath no cough no nausea or vomiting no abdominal pain no diarrhea no burning with urination no frequency or urgency and no hematuria. On 07/29/2023 patient is alert and oriented 3. Patient had hemodialysis cath removed with tip culture for source of infection. Blood cultures showing presumptive staph aureus. Infectious disease are following. Patient remains on IV antibiotic. White blood cell is trending down 18.8. Current vital signs temp 97.4, heart rate 87, respiratory rate 18, blood pressure 117/74 with a pulse ox 97% on room air On 07/30/2023 patient was seen and examined on the telemetry floor she is alert and oriented 3 in no apparent distress, she is complaining of generalized weakness, otherwise she denies any complaints, vital exam reveals a temperature of 98.4 pulse 71 respiration 14 blood pressure 115/67 pulse ox 95% on room air sodium 136 potassium 4.1 chloride 101 CO2 19 BUN 108 creatinine 2.59, patient is improving gradually, PT and OT consult, she remains on IV antibiotics, will follow closely On 07/31/2023 patient was seen and examined on the telemetry floor she is alert and oriented 3 in no apparent distress she is still complaining of weakness and complaining of low back pain otherwise she denies any complaints there is no fever or chills no headache or dizziness no chest pain no shortness of breath no cough no nausea or vomiting no abdominal pain no diarrhea and no urinary symptoms. Labs today are still pending, yesterday white blood count was still elevated at 20.7 BUN 108 creatinine 2.59 will continue with current antibiotics infectious disease are following On 08/01/2023 patient was seen and examined on the telemetry floor she is alert and oriented 3 in no apparent distress she is complaining of generalized weakness and low back pain, otherwise she denies any complaints there is no fever or chills no headache or dizziness no chest pain no shortness of breath no cough no nausea or vomiting no abdominal pain no diarrhea and no urinary symptoms. Today white blood count is 23.9 hemoglobin 8.5 platelet count 180 BUN 19 9 creatinine 3.2 On 08/02/2023 patient is alert and oriented 3 currently sitting up in bed eating breakfast. Repeat blood culture has been ordered per infectious disease due to continuing leukocytosis. Antibiotics adjusted to nafcillin per ID. Current vital signs temp 97.6, heart rate 77, respiratory rate 18, blood pressure 87/53 with pulse ox 96% on room. Patient denies chest pain or short ness breath. Patient denies nausea vomiting or diarrhea. Patient denies any urinary burning or frequency On 08/03/2023 patient is alert and oriented 3 currently resting in bed eating breakfast. Patient underwent debridement of right heel pressure ulcer with Dr. Miranda yesterday. White blood cell today slightly improved at 18.17. Creatinine 3.1 nephrology.\, infectious disease and wound care service is following. Patient denies chest pain or shortness of breath. Patient denies nausea vomiting or diarrhea. Patient denies any urinary burning or frequency On 08/04/2023 patient was seen and examined on the medical floor, she is alert and oriented 3 she is complaining of bilateral lower extremity pain especially at the time of dressing change and debridement of her wounds. White blood cell today slightly improved at 18.17. Creatinine 3.1 nephrology.\, infectious disease and wound care service is following. Patient denies chest pain or shortness of breath. Patient denies nausea vomiting or diarrhea. Patient denies any urinary burning or frequency On 08/05/2023 patient is alert and oriented 3. Patient remains on IV antibiotics. Current vital signs temp 97.5, heart rate 62, respiratory rate 16, blood pressure 93/62 with pulse ox 97% on room air. Lab work currently pending. Patient denies chest pain or shortness breath. Patient denies nausea vomiting or diarrhea. Patient denies any urinary burning or frequency Objective - Vital Signs Vital signs: Vital Signs Temp 97.5 F L 08/05/23 08:00 Pulse 63 08/05/23 08:00 Resp 16 08/05/23 08:00 BP 93/62 08/05/23 08:00 Pulse Ox 97 08/05/23 08:00 FiO2 Intake & Output 08/04/23 08/05/23 08/05/23 18:59 06:59 18:59 Intake Total 950 Balance 950 Weight 77.111 kg Intake: Intake, IV Titration 650 Amount Nafcillin 2 gm In 150 Dextrose 5% in Water 100 ml @ 50 mls/hr IVPB Q4H [facility] Rx#:[id number] Sodium Chloride 0.9% 1, 500 000 ml @ 50 mls/hr IV . Q20H [facility] Rx#:[id number] Oral 300 Other: Voiding Method External Catheter Diaper Diaper Incontinent Incontinent # Voids 1 2 # Bowel Movements 2 1 - Exam Head normocephalic Neck supple Lungs diminished bilaterally Heart regular rate and rhythm S1-S2, no rub or gallop Abdomen is soft nontender nondistended positive bowel sounds no hepatosplenomegaly Extremities multiple wounds to lower extremities Neuro alert and orientated to 3 - Labs CBC & Chem 7: 08/03/23 04:58 08/03/23 04:58 Labs: Abnormal Lab Results - Last 24 Hours (Table) 08/03/23 Range/Units 04:58 Promyelocytes # (Man) 0.18 H (0) k/uL Microbiology - Last 24 Hours (Table) 08/01/23 14:44 Blood Culture - Preliminary Blood Assessment and Plan Assessment: 1. Atrial flutter with RVR 2. Possible ALLERGIC reaction 3. Right lower Cellulitis with multiple wounds 4. Acute renal failure patient was started on hemodialysis during previous admission right femoral dialysis catheter in place. Unclear if patient is still receiving hemodialysis [facility] facility attempting to obtain medical records. Cathete r removed and cultured 5. Elevated troponins 6. History of recent admission following fall with rhabdomyolysis 7. Recent urinary tract infection with E. coli bacteremia 8. Recent treatment for suspected C. diff 9. 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 GI prophylaxis Protonix Cardiology, nephrology, infectious disease and wound care service is consulted Hemodialysis catheter removed and cultured. Status post wound debridement on 08/02/2023 Patient remains on IV antibiotics Repeat blood cultures ordered per ID on 08/01/2023
[2023-08-05] MEDS: LOPERAMIDE 2 MG CAP PO PRN ×3 (10:42→21:42)
[2023-08-05] MEDS: SODIUM BICARBONATE TAB 650 MG TAB PO SCH ×2 (10:42→20:25)
--- NOTE | 2023-08-05 10:47 | P.PN ---
Subjective Progress Note Date: 08/05/23 Principal diagnosis: MSSA bacteremia Patient is a 82-year-old female with a past medical history significant for hypertension hyperlipidemia history of chronic lower extremity venous stasis ulcer with recent admission to the hospital have E. coli bacteremia patient did develop ATN requiring hemodialysis patient was subsequently stabilized and [facility] local [facility] , patient did have improvement her kidney function and did not require any further dialysis however the patient continued to have right groin dialysis catheter no presenting to the hospital with weakness tachycardia and did have a positive blood culture with MSSA. Patient did have a mole of the right groin dialysis catheter by vascular surgery on 07/28/2023, patient did have deployment of bilateral heel wound by Dr. Rodríguez on 08/02/2023 On today's evaluation that is 08/05/2023, the patient is afebrile, the patient is breathing comfortably on room air , the patient denies chest pain or cough, patient denies Abdominal pain , no nausea/vomiting /diarrhea, the patient pain to bilateral heel area Patient did have white count is slightly down to 18.17 as of 08/03/2023, blood work pending from this morning catheter tip positive blood culture repeated on 07/28/2023 also positive, blood culture from 08/01/2023 so far negative cultures obtained from heel wound after debridement are pending Objective - Vital Signs Vital signs: Vital Signs Temp 97.5 F L 08/05/23 08:00 Pulse 63 08/05/23 08:00 Resp 16 08/05/23 08:00 BP 93/62 08/05/23 08:00 Pulse Ox 97 08/05/23 08:00 FiO2 Intake & Output 08/04/23 08/05/23 08/05/23 18:59 06:59 18:59 Intake Total 950 Balance 950 Weight 77.111 kg Intake: Intake, IV Titration 650 Amount Nafcillin 2 gm In 150 Dextrose 5% in Water 100 ml @ 50 mls/hr IVPB Q4H [facility] Rx#:[id number] Sodium Chloride 0.9% 1, 500 000 ml @ 50 mls/hr IV . Q20H [facility] Rx#:[id number] Oral 300 Other: Voiding Method External Catheter Diaper Incontinent # Voids 1 2 # Bowel Movements 2 1 - Exam GENERAL DESCRIPTION: An elderly female lying in bed in no distress RESPIRATORY SYSTEM: Unlabored breathing , decreased breath sounds at bases HEART: S1 S2 regular rate and rhythm , ABDOMEN: Soft , no tenderness EXTREMITIES: Bilateral heels with some black Esher no redness or drainage - Labs CBC & Chem 7: 08/03/23 04:58 08/03/23 04:58 Labs: Abnormal Lab Results - Last 24 Hours (Table) 08/03/23 Range/Units 04:58 Neutrophils # (Manual) 14.72 H (1.80-7.70) X 10*3/uL Promyelocytes # (Man) 0.18 H (0) k/uL Microbiology - Last 24 Hours (Table) 08/01/23 14:44 Blood Culture - Preliminary Blood Assessment and Plan (1) Cellulitis Current Visit: Yes Status: Acute Code(s): L03.90 - CELLULITIS, UNSPECIFIED SNOMED Code(s): 514953946 (2) Leukocytosis Current Visit: Yes Status: Acute Code(s): D72.829 - ELEVATED WHITE BLOOD CELL COUNT, UNSPECIFIED SNOMED Code(s): 941105212 (3) Stage II pressure ulcer of left buttock Current Visit: Yes Status: Acute Code(s): L89.322 - PRESSURE ULCER OF LEFT BUTTOCK, STAGE 2 SNOMED Code(s): 82426063822673 (4) Stage II pressure ulcer of left heel Current Visit: Yes Status: Acute Code(s): L89.622 - PRESSURE ULCER OF LEFT HEEL, STAGE 2 SNOMED Code(s): 30623427555327 (5) Stage II pressure ulcer of right buttock Current Visit: Yes Status: Acute Code(s): L89.312 - PRESSURE ULCER OF RIGHT BUTTOCK, STAGE 2 SNOMED Code(s): 06095462276054 (6) MSSA bacteremia Current Visit: Yes Status: Acute Code(s): R78.81 - BACTEREMIA; B95.61 - METHICILLIN SUSCEP STAPH INFCT CAUSING DIS CLASSD ELSWHR SNOMED Code(s): 85264 3004 Plan: 1patient presented to hospital with tachycardia patient did have a low-grade fever and elevated white count and MSSA bacteremia source is likely dialysis catheter infection which has been discontinued 2-right lower extremity wound care with a dry Aquacel dressing and Daniel wrap for compression 3-we will apply zinc to the excoriated skin to the bilateral gluteal and sacral area keep the area of the pressure 4 blood culture repeated on 07/28/2023 positive however blood cultures on 08/01/2023 so far pending, patient also have debridement of bilateral heel wounds and those cultures are so far not available in the system nursing staff to call the micro-lab to get the results 5patient white count is trending down as of 08/03/2023, CBC from this morning is pending, we will continue with Naficillin and monitor clinical course closely Dictation was produced using [employer] dictation software. please excuse any grammatical, word or spelling errors. Time with Patient: Less than 30
[2023-08-05 11:09] LABS: HCT 25.7 % (37.2-46.3); HGB 7.6 d/dL (12.0-15.0); MCH 31.7 pg (27.0-32.0); MCHC 29.6 d/dL (32.0-37.0); MCV 107.1 FL (80.0-97.0); Mean Platelet Volume 10.3 FL (9.5-12.2); NRBC Per 100 WBC 0 X 10*3/uL (0.00-0.01); Platelet Count 359 X 10*3/uL (140-440); RDW 15.9 % (11.5-14.5); WBC 14.71 X 10*3/uL (4.50-10.00)
[2023-08-05 11:54] LABS: Basophils # (M) 0 X 10*3/uL (0.00-0.10); Crenated RBC 2+; Eosinophils # (M) 0 X 10*3/uL (0.04-0.35); Lymphocytes # (M) 0.88 X 10*3/uL (0.90-5.00); Macrocytosis (M) 2+; Metamyelocytes % 3 % (0-0); Monocytes # (M) 0.15 X 10*3/uL (0.20-1.00); Myelocytes % 4 % (0-0); Neutrophils # (M) 12.65 X 10*3/uL (1.80-7.70); Neutrophils % (M) 86 %
--- NOTE | 2023-08-05 12:11 | P.PN ---
Subjective Patient is seen in follow for acute kidney injury. Has been voiding. Renal function stable. No vomiting or diarrhea. No chest pain or shortness of breath. Blood pressure stable but on the lower side. No active complaints. Oral intake fair. Vital signs are stable. General: No acute distress. HEENT: Head exam is unremarkable. LUNGS: No audible rhonchi or wheezes. HEART: Rate and Rhythm are regular. ABDOMEN: Nontender. EXTREMITITES: No edema. Lower extremity is wrapped. No drainage. Objective - Vital Signs Vital signs: Vital Signs Temp 97.5 F L 08/05/23 08:00 Pulse 99 08/05/23 10:47 Resp 16 08/05/23 08:00 BP 93/62 08/05/23 08:00 Pulse Ox 97 08/05/23 08:00 FiO2 Intake & Output 08/04/23 08/05/23 08/05/23 18:59 06:59 18:59 Intake Total 950 Balance 950 Weight 77.111 kg Intake: Intake, IV Titration 650 Amount Nafcillin 2 gm In 150 Dextrose 5% in Water 100 ml @ 50 mls/hr IVPB Q4H [facility] Rx#:[id number] Sodium Chloride 0.9% 1, 500 000 ml @ 50 mls/hr IV . Q20H [facility] Rx#:[id number] Oral 300 Other: Voiding Method External Catheter Diaper Diaper Incontinent Incontinent # Voids 1 2 # Bowel Movements 2 1 - Labs CBC & Chem 7: 08/05/23 06:22 08/03/23 04:58 Labs: Abnormal Lab Results - Last 24 Hours (Table) 08/05/23 Range/Units 06:22 WBC 14.71 H (4.50-10.00) X 10*3/uL RBC 2.40 L (4.10-5.20) X 10*6/uL Hgb 7.6 L (12.0-15.0) d/dL Hct 25.7 L (37.2-46.3) % MCV 107.1 H (80.0-97.0) FL MCHC 29.6 L (32.0-37.0) d/dL RDW 15.9 H (11.5-14.5) % Lymphocytes # (Manual) 0.88 L (0.90-5.00) X 10*3/uL Monocytes # (Manual) 0.15 L (0.20-1.00) X 10*3/uL Eosinophils # (Manual) 0 L (0.04-0.35) X 10*3/uL Macrocytosis (manual) 2+ A Crenated Cell 2+ A Microbiology - Last 24 Hours (Table) 08/01/23 14:44 Blood Culture - Preliminary Blood Assessment and Plan Plan: Assessment: 1. Acute kidney injury secondary to ATN secondary to severe sepsis and rhabdomyolysis. Patient required hemodialysis but now has been off hemodialysis for over a week. Baseline creatinine prior to acute kidney injury episode was near 0.8. Creatinine this admission has been in the range of 2.6-3.2. Establish new baseline renal function. Nonoliguric. Ultrasound from 06/11/2023 showed no hydronephrosis. 2. Staph aureus bacteremia status post removal of groin dialysis catheter. On antibiotics. Catheter tip culture positive for staph aureus. 3. Hyperphosphatemia secondary to acute kidney injury maintained on Renvela. Phosphorus level 4.7 dated 07/27/2023. 4. Anemia. Possibly component of chronic kidney disease. On Aranesp. 5. Volume overload. Status post diuresis. Improved. 6. Metabolic acidosis secondary to acute kidney injury maintained on oral bicarb. 7. Chronic diastolic CHF with mild to moderate mitral regurgitation. Plan: Encouraged oral intake. Maintain gentle IV hydration. Maintain midodrine. Hold for systolic blood pressure greater than 110. Continue to monitor renal function and urine output. Morning labs pending. Strict is and os. Discussed with nurse.
[2023-08-05] MEDS: SEVELAMER 800 MG TAB PO SCH ×2 (13:12→17:37)
[2023-08-05] MEDS: HYDROPHILIC CREAM 180 GM TUBE TOPICAL SCH (13:12)
[2023-08-05 14:08] LABS: BUN/Creat Ratio 26.31 Ratio (12.00-20.00); Blood Urea Nitrogen 76.3 mg/dL (9.0-27.0); Calcium 7.8 mg/dL (8.7-10.3); Carbon Dioxide 23.1 mmol/L (21.6-31.8); Chloride 100 mmol/L (96-109); Glucose 91 mg/dL (70-110); Potassium 3.1 mmol/L (3.5-5.5); Sodium 139 mmol/L (135-145)
[2023-08-05] MEDS ORDERED: POTASSIUM CHLORIDE ER 20 MEQ TAB.ER PO STA (14:41)
[2023-08-05] MEDS ORDERED: FUROSEMIDE 10 MG/ML 10 ML VIAL IV STA (14:41)
[2023-08-05] MEDS: HYDROcodone/APAP 7.5-325MG 1 EACH TAB PO PRN (17:37)
[2023-08-05] MEDS: MONTELUKAST 10 MG TAB PO SCH (20:25)
[2023-08-06] MEDS: NAFCILLIN 2 GM in DEXTROSE 5% IN WATER 100 ML IVPB SCH ×12 (00:49→20:53)
[2023-08-06] MEDS: SODIUM CHLORIDE 0.9% 1,000 ML IV SCH (00:50)
[2023-08-06 06:15] LABS: ALT 7 U/L (4-34); AST 25 U/L (14-36); African American GFR (CKD) 21 (>60 ml/min/1.73 sqM); Albumin 2.1 g/dL (3.5-5.0); Albumin/Globulin Ratio 0.8; Alkaline Phosphatase 73 U/L (38-126); Anion Gap 10 mmol/L; Blood Urea Nitrogen 76 mg/dL (7-17); Calcium 7.4 mg/dL (8.4-10.2); Carbon Dioxide 23 mmol/L (22-30); Chloride 105 mmol/L (98-107); Globulin 2.8 g/dL; Glucose 87 mg/dL (74-99); Magnesium 1.7 mg/dL (1.6-2.3); Non-African American GFR(CKD) 18 (>60 ml/min/1.73 sqM); Potassium 3.1 mmol/L (3.5-5.1); Sodium 138 mmol/L (137-145); Total Bilirubin 0.8 mg/dL (0.2-1.3); Total Protein 4.9 g/dL (6.3-8.2)
[2023-08-06] MEDS: HYDROcodone/APAP 7.5-325MG 1 EACH TAB PO PRN ×2 (06:25→20:49)
[2023-08-06] MEDS: POTASSIUM CHLORIDE ER 10 MEQ TAB.ER.PRT PO SCH ×2 (09:27→10:46)
[2023-08-06] MEDS: metroNIDAZOLE 500 MG TAB PO SCH ×3 (09:27→20:56)
[2023-08-06] MEDS: PANTOPRAZOLE 40 MG TABLET PO SCH (09:27)
[2023-08-06] MEDS: ASPIRIN 81 MG PO SCH (09:27)
[2023-08-06] MEDS: FLUoxetine HCL 20 MG CAP PO SCH (09:28)
[2023-08-06] MEDS: MIDODRINE 5 MG TAB PO SCH ×3 (09:28→17:19)
[2023-08-06] MEDS: ENOXAPARIN 30 MG/0.3 ML SYRINGE SQ SCH (09:28)
[2023-08-06] MEDS: CHOLESTYRAMINE (WITH SUGAR) 4 GM PACKET PO SCH ×2 (09:28→20:49)
[2023-08-06] MEDS: SODIUM BICARBONATE TAB 650 MG TAB PO SCH ×2 (09:28→20:49)
[2023-08-06] MEDS: HYDROmorphone 0.5 MG/0.5 ML SYRINGE IVP PRN ×2 (09:28→16:35)
[2023-08-06] MEDS: ASCORBIC ACID 500 MG TAB PO SCH (09:28)
[2023-08-06] MEDS: PRAVASTATIN SODIUM 20 MG TAB PO SCH (09:29)
[2023-08-06] MEDS: METOPROLOL TARTRATE 50 MG TAB PO SCH ×2 (09:29→20:49)
[2023-08-06] MEDS: HYDROPHILIC CREAM 180 GM TUBE TOPICAL SCH (09:29)
[2023-08-06] MEDS: NYSTATIN 100,000 UNIT/ML SUSP 500,000 UNIT/5 ML CUP PO SCH ×4 (09:29→20:56)
--- NOTE | 2023-08-06 11:42 | P.PN ---
Subjective Patient is seen in follow for acute kidney injury. Has been voiding. Renal function better. Status post IV Lasix yesterday. Nonoliguric. No vomiting or diarrhea. No chest pain or shortness of breath. Blood pressure stable but on the lower side. No active complaints. Oral intake fair. Vital signs are stable. General: No acute distress. HEENT: Head exam is unremarkable. LUNGS: No audible rhonchi or wheezes. HEART: Rate and Rhythm are regular. ABDOMEN: Nontender. EXTREMITITES: No edema. Objective - Vital Signs Vital signs: Vital Signs Temp 97.5 F L 08/06/23 08:00 Pulse 61 08/06/23 08:00 Resp 16 08/06/23 08:00 BP 93/57 08/06/23 08:00 Pulse Ox 96 08/06/23 08:00 FiO2 Intake & Output 08/05/23 08/06/23 08/06/23 18:59 06:59 18:59 Intake Total 1500 Balance 1500 Intake: Intake, IV Titration 900 Amount Nafcillin 2 gm In 300 Dextrose 5% in Water 100 ml @ 50 mls/hr IVPB Q4H [facility] Rx#:[id number] Sodium Chloride 0.9% 1, 600 000 ml @ 50 mls/hr IV . Q20H [facility] Rx#:[id number] Oral 600 Other: Voiding Method Diaper Diaper Diaper Incontinent Incontinent Incontinent # Voids 1 1 # Bowel Movements 1 - Labs CBC & Chem 7: 08/05/23 06:22 08/06/23 05:33 Labs: Abnormal Lab Results - Last 24 Hours (Table) 08/05/23 08/05/23 08/06/23 Range/Units 06:22 06:22 05:33 Lymphocytes # (Manual) 0.88 L (0.90-5.00) X 10*3/uL Monocytes # (Manual) 0.15 L (0.20-1.00) X 10*3/uL Eosinophils # (Manual) 0 L (0.04-0.35) X 10*3/uL Macrocytosis (manual) 2+ A Crenated Cell 2+ A Potassium 3.1 L 3.1 L (3.5-5.5) mmol/L Anion Gap 15.90 H (4.00-12.00) mmol/L BUN 76.3 H 76 H (9.0-27.0) mg/dL Creatinine 2.9 H 2.44 H (0.6-1.5) mg/dL Est GFR (CKD-EPI) 16 L (>=60) BUN/Creatinine Ratio 26.31 H (12.00-20.00) Ratio Calcium 7.8 L 7.4 L (8.7-10.3) mg/dL C-Reactive Protein 8.10 H (0.00-0.80) mg/dL Total Protein 4.9 L (6.3-8.2) g/dL Albumin 2.1 L (3.5-5.0) g/dL Assessment and Plan Plan: Assessment: 1. Acute kidney injury secondary to ATN secondary to severe sepsis and rhabdomyolysis. Patient required hemodialysis but now has been off hemodialysis for over a week. Baseline creatinine prior to acute kidney injury episode was near 0.8. Creatinine this admission has been in the range of 2.6-3.2 - 2.44 today. Establish new baseline renal function. Nonoliguric. Ultrasound from 06/11/2023 showed no hydronephrosis. 2. Staph aureus bacteremia status post removal of groin dialysis catheter. On antibiotics. Catheter tip culture positive for staph aureus. 3. Hyperphosphatemia secondary to acute kidney injury maintained on Renvela. Phosphorus level 4.7 dated 07/27/2023. 4. Anemia. Possibly component of chronic kidney disease. On Aranesp. 5. Volume overload. Status post diuresis. Improved. 6. Metabolic acidosis secondary to acute kidney injury maintained on oral bicarb. 7. Chronic diastolic CHF with mild to moderate mitral regurgitation. 8. Hypokalemia from poor intake and diuresis. Plan: Encouraged oral intake. Hep-Lock IV fluids. Status post 60 mg IV Lasix 08/05/2023. Replace potassium. Maintain midodrine. Hold for systolic blood pressure greater than 110. Continue to monitor renal function and urine output. Check phosphorus level.
--- NOTE | 2023-08-06 11:50 | P.PN ---
Subjective Progress Note Date: 08/06/23 Principal diagnosis: MSSA bacteremia Patient is a 82-year-old female with a past medical history significant for hypertension hyperlipidemia history of chronic lower extremity venous stasis ulcer with recent admission to the hospital have E. coli bacteremia patient did develop ATN requiring hemodialysis patient was subsequently stabilized and transferred to local [facility] , patient did have improvement her kidney function and did not require any further dialysis however the patient continued to have right groin dialysis catheter no presenting to the hospital with weakness tachycardia and did have a positive blood culture with MSSA. Patient did have a mole of the right groin dialysis catheter by vascular surgery on 07/28/2023, patient did have deployment of bilateral heel wound by Dr. Miranda on 08/02/2023 On today's evaluation that is 08/06/2023, the patient remains to be afebrile, the patient is breathing comfortably on room air without need for supplemental oxygen, the patient denies chest pain shortness of breath and no cough, patient denies nausea/vomiting /diarrhea, and denies any abdominal pain the patient pain to bilateral heel area Patient did have white count is down to 14.711 as of yesterday, creatinine is 2.44, catheter tip positive blood culture repeated on 07/28/2023 also positive, blood culture from 08/01/2023 so far negative cultures obtained from heel wound after debridement are pending Objective - Vital Signs Vital signs: Vital Signs Temp 97.6 F 08/06/23 00:48 Pulse 59 L 08/06/23 00:48 Resp 18 08/06/23 00:48 BP 111/66 08/06/23 00:48 Pulse Ox 99 08/06/23 00:48 FiO2 Intake & Output 08/05/23 08/06/23 08/06/23 18:59 06:59 18:59 Intake Total 1500 Balance 1500 Intake: Intake, IV Titration 900 Amount Nafcillin 2 gm In 300 Dextrose 5% in Water 100 ml @ 50 mls/hr IVPB Q4H [facility] Rx#:[id number] Sodium Chloride 0.9% 1, 600 000 ml @ 50 mls/hr IV . Q20H [facility] Rx#:[id number] Oral 600 Other: Voiding Method Diaper Diaper Incontinent Incontinent # Voids 1 1 # Bowel Movements 1 - Exam GENERAL DESCRIPTION: An elderly female lying in bed in no distress RESPIRATORY SYSTEM: Unlabored breathing , decreased breath sounds at bases HEART: S1 S2 regular rate and rhythm , ABDOMEN: Soft , no tenderness EXTREMITIES: Bilateral heels wounds are currently dressed - Labs CBC & Chem 7: 08/05/23 06:22 08/06/23 05:33 Labs: Abnormal Lab Results - Last 24 Hours (Table) 08/05/23 08/05/23 08/06/23 Range/Units 06:22 06:22 05:33 WBC 14.71 H (4.50-10.00) X 10*3/uL RBC 2.40 L (4.10-5.20) X 10*6/uL Hgb 7.6 L (12.0-15.0) d/dL Hct 25.7 L (37.2-46.3) % MCV 107.1 H (80.0-97.0) FL MCHC 29.6 L (32.0-37.0) d/dL RDW 15.9 H (11.5-14.5) % Lymphocytes # (Manual) 0.88 L (0.90-5.00) X 10*3/uL Monocytes # (Manual) 0.15 L (0.20-1.00) X 10*3/uL Eosinophils # (Manual) 0 L (0.04-0.35) X 10*3/uL Macrocytosis (manual) 2+ A Crenated Cell 2+ A Potassium 3.1 L 3.1 L (3.5-5.5) mmol/L Anion Gap 15.90 H (4.00-12.00) mmol/L BUN 76.3 H 76 H (9.0-27.0) mg/dL Creatinine 2.9 H 2.44 H (0.6-1.5) mg/dL Est GFR (CKD-EPI) 16 L (>=60) BUN/Creatinine Ratio 26.31 H (12.00-20.00) Ratio Calcium 7.8 L 7.4 L (8.7-10.3) mg/dL C-Reactive Protein 8.10 H (0.00-0.80) mg/dL Total Protein 4.9 L (6.3-8.2) g/dL Albumin 2.1 L (3.5-5.0) g/dL Assessment and Plan (1) Cellulitis Current Visit: Yes Status: Acute Code(s): L03.90 - CELLULITIS, UNSPECIFIED SNOMED Code(s): 909839152 (2) Leukocytosis Current Visit: Yes Status: Acute Code(s): D72.829 - ELEVATED WHITE BLOOD CELL COUNT, UNSPECIFIED SNOMED Code(s): 395556749 (3) Stage II pressure ulcer of left buttock Current Visit: Yes Status: Acute Code(s): L89.322 - PRESSURE ULCER OF LEFT BUTTOCK, STAGE 2 SNOMED Code(s): 25252780354717 (4) Stage II pressure ulcer of left heel Current Visit: Yes Status: Acute Code(s): L89.622 - PRESSURE ULCER OF LEFT HEEL, STAGE 2 SNOMED Code(s): 28834928106024 (5) Stage II pressure ulcer of right buttock Current Visit: Yes Status: Acute Code(s): L89.312 - PRESSURE ULCER OF RIGHT BUTTOCK, STAGE 2 SNOMED Code(s): 35876917536350 (6) MSSA bacteremia Current Visit: Yes Status: Acute Code(s): R78.81 - BACTEREMIA; B95.61 - METHICILLIN SUSCEP STAPH INFCT CAUSING DIS CLASSD ELSWHR SNOMED Code(s): 434238927 Plan: 1patient presented to hospital with tachycardia patient did have a low-grade fever and elevated white count and MSSA bacteremia source is likely dialysis catheter infection which has been discontinued 2-right lower extremity wound care with a dry Aquacel dressing and Daniel wrap for compression 3-we will apply zinc to the excoriated skin to the bilateral gluteal and sacral area keep the area of the pressure 4 blood culture repeated on 07/28/2023 positive however blood cultures on 08/01/2023 so far pending, patient also have debridement of bilateral heel wounds and those cultures are so far not available in the system nursing staff to call the micro-lab to get the results , results have not been available as of 08/06/2023 5patient white count is trending down as of 08/05/2023, we will continue with Naficillin and repeat a CBC with a.m. lab Dictation was produced using [employer] dictation software. please excuse any grammatical, word or spelling errors.
[2023-08-06] MEDS: SEVELAMER 800 MG TAB PO SCH ×2 (12:59→17:19)
--- NOTE | 2023-08-06 14:37 | P.PN ---
Subjective Progress Note Date: 08/06/23 This is an 82-year-old female patient with an extensive medical history who presented to the ER with concerns of atrial flutter with RVR and rash. Patient remains with left femoral dialysis port. Concerns of possible ALLERGIC reaction due to antibiotics patient was given Benadryl and Solu-Medrol. Patient is a poor historian unable to recall recent events. Past medical history includes hyperlipidemia hypertension, end-stage renal disease requiring hemodialysis during previous hospitalization, osteoarthritis, GERD. Chest x-ray completed showing vascular congestion. EKG completed showing sinus tachycardia possible atrial flutter rate 144. White blood cell elevated 21.4, creatinine 2.63, bun 5 4. BNP 9640. Troponin 0.404, 0.7 696 and 1.360. Wound noted to left lower extremity. Patient was started on heparin for elevated troponins and Cardizem. Patient started on IV vancomycin. 2-D echo ordered. Unclear patient has been receiving hemodialysis. Attempting to obtain medical records. Cardiology, nephrology infectious disease and wound care service is consulted. Blood culture ordered. Repeat labs will be ordered. At this time patient is resting comfortably in bed. Current vital signs temp 98.5, heart rate 108, respiratory rate 20, blood pressure 131/72 with a pulse ox 93% on room air On 07/28/2023 patient was seen and examined on the medical floor she is alert and oriented 3 in no apparent distress, she is complaining of severe pain in the lower extremity especially at the time of dressing change, she is also complaining of fatigue and generalized weakness, otherwise she denies any complaints there is no fever or chills no headache or dizziness no chest pain no shortness of breath no cough no nausea or vomiting no abdominal pain no diarrhea no burning with urination no frequency or urgency and no hematuria. On 07/29/2023 patient is alert and oriented 3. Patient had hemodialysis cath removed with tip culture for source of infection. Blood cultures showing presumptive staph aureus. Infectious disease are following. Patient remains on IV antibiotic. White blood cell is trending down 18.8. Current vital signs temp 97.4, heart rate 87, respiratory rate 18, blood pressure 117/74 with a pulse ox 97% on room air On 07/30/2023 patient was seen and examined on the telemetry floor she is alert and oriented 3 in no apparent distress, she is complaining of generalized weakness, otherwise she denies any complaints, vital exam reveals a temperature of 98.4 pulse 71 respiration 14 blood pressure 115/67 pulse ox 95% on room air sodium 136 potassium 4.1 chloride 101 CO2 19 BUN 108 creatinine 2.59, patient is improving gradually, PT and OT consult, she remains on IV antibiotics, will follow closely On 07/31/2023 patient was seen and examined on the telemetry floor she is alert and oriented 3 in no apparent distress she is still complaining of weakness and complaining of low back pain otherwise she denies any complaints there is no fever or chills no headache or dizziness no chest pain no shortness of breath no cough no nausea or vomiting no abdominal pain no diarrhea and no urinary symptoms. Labs today are still pending, yesterday white blood count was still elevated at 20.7 BUN 108 creatinine 2.59 will continue with current antibiotics infectious disease are following On 08/01/2023 patient was seen and examined on the telemetry floor she is alert and oriented 3 in no apparent distress she is complaining of generalized weakness and low back pain, otherwise she denies any complaints there is no fever or chills no headache or dizziness no chest pain no shortness of breath no cough no nausea or vomiting no abdominal pain no diarrhea and no urinary symptoms. Today white blood count is 23.9 hemoglobin 8.5 platelet count 180 BUN 19 9 creatinine 3.2 On 08/02/2023 patient is alert and oriented 3 currently sitting up in bed eating breakfast. Repeat blood culture has been ordered per infectious disease due to continuing leukocytosis. Antibiotics adjusted to nafcillin per ID. Current vital signs temp 97.6, heart rate 77, respiratory rate 18, blood pressure 87/53 with pulse ox 96% on room. Patient denies chest pain or short ness breath. Patient denies nausea vomiting or diarrhea. Patient denies any urinary burning or frequency On 08/03/2023 patient is alert and oriented 3 currently resting in bed eating breakfast. Patient underwent debridement of right heel pressure ulcer with Dr. Miranda yesterday. White blood cell today slightly improved at 18.17. Creatinine 3.1 nephrology.\, infectious disease and wound care service is following. Patient denies chest pain or shortness of breath. Patient denies nausea vomiting or diarrhea. Patient denies any urinary burning or frequency On 08/04/2023 patient was seen and examined on the medical floor, she is alert and oriented 3 she is complaining of bilateral lower extremity pain especially at the time of dressing change and debridement of her wounds. White blood cell today slightly improved at 18.17. Creatinine 3.1 nephrology.\, infectious disease and wound care service is following. Patient denies chest pain or shortness of breath. Patient denies nausea vomiting or diarrhea. Patient denies any urinary burning or frequency On 08/05/2023 patient is alert and oriented 3. Patient remains on IV antibiotics. Current vital signs temp 97.5, heart rate 62, respiratory rate 16, blood pressure 93/62 with pulse ox 97% on room air. Lab work currently pending. Patient denies chest pain or shortness breath. Patient denies nausea vomiting or diarrhea. Patient denies any urinary burning or frequency. On 08/06/2023 patient was seen and examined on the medical floor she is alert and oriented 3 in no apparent distress, she is feeling better today she is sitting up and eating her meal there is no fever or chills no headache or dizziness no chest pain no shortness of breath no cough no nausea or vomiting no abdominal pain no diarrhea and no urinary symptoms Objective - Vital Signs Vital signs: Vital Signs Temp 97.5 F L 08/06/23 08:00 Pulse 61 08/06/23 08:00 Resp 16 08/06/23 08:00 BP 93/57 08/06/23 08:00 Pulse Ox 96 08/06/23 08:00 FiO2 Intake & Output 08/05/23 08/06/23 08/06/23 18:59 06:59 18:59 Intake Total 1500 Balance 1500 Intake: Intake, IV Titration 900 Amount Nafcillin 2 gm In 300 Dextrose 5% in Water 100 ml @ 50 mls/hr IVPB Q4H [facility] Rx#:[id number] Sodium Chloride 0.9% 1, 600 000 ml @ 50 mls/hr IV . Q20H [facility] Rx#:[id number] Oral 600 Other: Voiding Method Diaper Diaper Incontinent Incontinent # Voids 1 1 # Bowel Movements 1 - Exam Head normocephalic Neck supple Lungs diminished bilaterally Heart regular rate and rhythm S1-S2, no rub or gallop Abdomen is soft nontender nondistended positive bowel sounds no hepatosplenomegaly Extremities multiple wounds to lower extremities Neuro alert and orientated to 3 - Labs CBC & Chem 7: 08/05/23 06:22 08/06/23 05:33 Labs: Abnormal Lab Results - Last 24 Hours (Table) 08/05/23 08/05/23 08/06/23 Range/Units 06:22 06:22 05:33 WBC 14.71 H (4.50-10.00) X 10*3/uL RBC 2.40 L (4.10-5.20) X 10*6/uL Hgb 7.6 L (12.0-15.0) d/dL Hct 25.7 L (37.2-46.3) % MCV 107.1 H (80.0-97.0) FL MCHC 29.6 L (32.0-37.0) d/dL RDW 15.9 H (11.5-14.5) % Lymphocytes # (Manual) 0.88 L (0.90-5.00) X 10*3/uL Monocytes # (Manual) 0.15 L (0.20-1.00) X 10*3/uL Eosinophils # (Manual) 0 L (0.04-0.35) X 10*3/uL Macrocytosis (manual) 2+ A Crenated Cell 2+ A Potassium 3.1 L 3.1 L (3.5-5.5) mmol/L Anion Gap 15.90 H (4.00-12.00) mmol/L BUN 76.3 H 76 H (9.0-27.0) mg/dL Creatinine 2.9 H 2.44 H (0.6-1.5) mg/dL Est GFR (CKD-EPI) 16 L (>=60) BUN/Creatinine Ratio 26.31 H (12.00-20.00) Ratio Calcium 7.8 L 7.4 L (8.7-10.3) mg/dL C-Reactive Protein 8.10 H (0.00-0.80) mg/dL Total Protein 4.9 L (6.3-8.2) g/dL Albumin 2.1 L (3.5-5.0) g/dL Assessment and Plan Assessment: 1. Atrial flutter with RVR 2. Possible ALLERGIC reaction 3. Right lower Cellulitis with multiple wounds 4. Acute renal failure patient was started on hemodialysis during previous admission right femoral dialysis catheter in place. Unclear if patient is still receiving hemodialysis [facility] facility attempting to obtain medical records. Catheter removed and cultured 5. Elevated troponins 6. History of recent admission following fall with rhabdomyolysis 7. Recent urinary tract infection with E. coli bacteremia 8. Recent treatment for suspected C. diff 9. 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 GI prophylaxis Protonix Cardiology, nephrology, infectious disease and wound care service is consulted Hemodialysis catheter removed and cultured. Status post wound debridement on 08/02/2023 Patient remains on IV antibiotics Repeat blood cultures ordered per ID on 08/01/2023
[2023-08-06 15:11] LABS: INR 1.02 sec (0.93-1.11); Prothrombin Time 11.5 sec (9.9-11.9)
[2023-08-06] MEDS: LOPERAMIDE 2 MG CAP PO PRN ×2 (16:16→20:49)
[2023-08-06] MEDS: MONTELUKAST 10 MG TAB PO SCH (20:49)
[2023-08-07] MEDS: NAFCILLIN 2 GM in DEXTROSE 5% IN WATER 100 ML IVPB SCH ×8 (00:36→13:26)
[2023-08-07 08:26] LABS: ALT 7 U/L (4-34); AST 19 U/L (14-36); African American GFR (CKD) 21 (>60 ml/min/1.73 sqM); Albumin 2.1 g/dL (3.5-5.0); Albumin/Globulin Ratio 0.7; Alkaline Phosphatase 71 U/L (38-126); Anion Gap 11 mmol/L; Blood Urea Nitrogen 74 mg/dL (7-17); Calcium 7.6 mg/dL (8.4-10.2); Carbon Dioxide 22 mmol/L (22-30); Chloride 106 mmol/L (98-107); Globulin 2.9 g/dL; Glucose 87 mg/dL (74-99); Magnesium 1.7 mg/dL (1.6-2.3); Non-African American GFR(CKD) 18 (>60 ml/min/1.73 sqM); Phosphorus 4.9 mg/dL (2.5-4.5); Potassium 3.8 mmol/L (3.5-5.1); Sodium 139 mmol/L (137-145); Total Bilirubin 0.8 mg/dL (0.2-1.3)
[2023-08-07 08:48] LABS: Basophils # (A) 0.1 k/uL (0-0.2); Basophils % (A) 0 %; Eosinophils # (A) 0.3 k/uL (0-0.7); Eosinophils % (A) 3 %; HCT 26.6 % (34.0-46.0); HGB 7.7 gm/dL (11.4-16.0); Hypochromasia Marked; Lymphocytes # (A) 1.2 k/uL (1.0-4.8); Lymphocytes % (A) 9 %; MCH 31.9 pg (25.0-35.0); Macrocytosis Marked; Mean Platelet Volume 8.2; Monocytes # (A) 0.7 k/uL (0-1.0); Monocytes % (A) 5 %; Neutrophils # (A) 10.6 k/uL (1.3-7.7); Neutrophils % (A) 81 %; RBC 2.42 m/uL (3.80-5.40); RDW 15.6 % (11.5-15.5); WBC 13.2 k/uL (3.8-10.6)
[2023-08-07 08:49] LABS: MCV 109.7 fL (80.0-100.0); Platelet Count 363 k/uL (150-450)
[2023-08-07] MEDS: CHOLESTYRAMINE (WITH SUGAR) 4 GM PACKET PO SCH ×2 (09:17→20:50)
[2023-08-07] MEDS: SODIUM BICARBONATE TAB 650 MG TAB PO SCH ×2 (09:17→20:50)
[2023-08-07] MEDS: NYSTATIN 100,000 UNIT/ML SUSP 500,000 UNIT/5 ML CUP PO SCH ×4 (09:18→20:59)
[2023-08-07] MEDS: ASCORBIC ACID 500 MG TAB PO SCH (09:18)
[2023-08-07] MEDS: metroNIDAZOLE 500 MG TAB PO SCH ×3 (09:18→20:59)
[2023-08-07] MEDS: PANTOPRAZOLE 40 MG TABLET PO SCH (09:18)
[2023-08-07] MEDS: METOPROLOL TARTRATE 50 MG TAB PO SCH ×2 (09:18→20:50)
[2023-08-07] MEDS: ASPIRIN 81 MG PO SCH (09:18)
[2023-08-07] MEDS: MIDODRINE 5 MG TAB PO SCH ×3 (09:18→17:36)
[2023-08-07] MEDS: FLUoxetine HCL 20 MG CAP PO SCH (09:18)
[2023-08-07] MEDS: PRAVASTATIN SODIUM 20 MG TAB PO SCH (09:19)
[2023-08-07] MEDS: HYDROPHILIC CREAM 180 GM TUBE TOPICAL SCH (09:19)
[2023-08-07] MEDS: ERGOCALCIFEROL 1,250 MCG (50,000 IU) CAPSULE PO SCH (09:19)
[2023-08-07] MEDS: ENOXAPARIN 30 MG/0.3 ML SYRINGE SQ SCH (09:19)
[2023-08-07] MEDS: HYDROcodone/APAP 7.5-325MG 1 EACH TAB PO PRN ×2 (09:34→15:27)
[2023-08-07] MEDS ORDERED: POTASSIUM CHLORIDE ER 20 MEQ TAB.ER PO STA (10:54)
[2023-08-07] MEDS ORDERED: FUROSEMIDE 10 MG/ML 4 ML VIAL IV STA (10:54)
--- NOTE | 2023-08-07 10:55 | P.PN ---
Subjective Patient is seen in follow for acute kidney injury. Has been voiding. Urine output 1100 mL in the last 24 hours. Renal function stable. No vomiting or diarrhea. No chest pain or shortness of breath. Blood pressure stable. No active complaints. Oral intake fair. Vital signs are stable. General: No acute distress. HEENT: Head exam is unremarkable. LUNGS: No audible rhonchi or wheezes. HEART: Rate and Rhythm are regular. ABDOMEN: Nontender. EXTREMITITES: 1+ edema. Objective - Vital Signs Vital signs: Vital Signs Temp 97.5 F L 08/07/23 08:00 Pulse 61 08/07/23 08:00 Resp 19 08/07/23 08:00 BP 101/60 08/07/23 08:00 Pulse Ox 97 08/07/23 08:00 FiO2 Intake & Output 08/06/23 08/07/23 08/07/23 18:59 06:59 18:59 Intake Total 900 Output Total 700 400 Balance -700 500 Intake: Intake, IV Titration 300 Amount Nafcillin 2 gm In 300 Dextrose 5% in Water 100 ml @ 50 mls/hr IVPB Q4H [facility] Rx#:[id number] Oral 600 Output: Urine 700 400 Uretheral (Singh) 350 Other: Voiding Method Diaper Indwelling Catheter Indwelling Catheter Incontinent # Bowel Movements 1 1 - Labs CBC & Chem 7: 08/07/23 07:37 08/07/23 07:37 Labs: Abnormal Lab Results - Last 24 Hours (Table) 08/07/23 08/07/23 Range/Units 07:37 07:37 WBC 13.2 H (3.8-10.6) k/uL RBC 2.42 L (3.80-5.40) m/uL Hgb 7.7 L (11.4-16.0) gm/dL Hct 26.6 L (34.0-46.0) % MCV 109.7 H D (80.0-100.0) fL MCHC 29.0 L (31.0-37.0) g/dL RDW 15.6 H (11.5-15.5) % Neutrophils # 10.6 H (1.3-7.7) k/uL Macrocytosis Marked A BUN 74 H (7-17) mg/dL Creatinine 2.42 H (0.52-1.04) mg/dL Calcium 7.6 L (8.4-10.2) mg/dL Phosphorus 4.9 H (2.5-4.5) mg/dL Total Protein 5.0 L (6.3-8.2) g/dL Albumin 2.1 L (3.5-5.0) g/dL Microbiology - Last 24 Hours (Table) 08/01/23 14:44 Blood Culture - Final Blood Assessment and Plan Plan: Assessment: 1. Acute kidney injury secondary to ATN secondary to severe sepsis and rhabdomyolysis. Patient required hemodialysis but now has been off hemodialysis for over a week. Baseline creatinine prior to acute kidney injury episode was near 0.8. Creatinine this admission has been in the range of 2.6-3.2 - 2.42 today. Establish new baseline renal function. Nonoliguric. Ultrasound from 06/11/2023 showed no hydronephrosis. 2. Staph aureus bacteremia status post removal of groin dialysis catheter. On antibiotics. Catheter tip culture positive for staph aureus. 3. Hyperphosphatemia secondary to acute kidney injury maintained on Renvela. Phosphorus level 4.9. 4. Anemia. Possibly component of chronic kidney disease. On Aranesp. 5. Volume overload. Status post diuresis this admission. 6. Metabolic acidosis secondary to acute kidney injury maintained on oral bicarb. 7. Chronic diastolic CHF with mild to moderate mitral regurgitation. 8. Hypokalemia from poor intake and diuresis. Replaced. Improved. Plan: Encouraged oral intake. Repeat IV Lasix 40 mg once today. Replace potassium. Maintain midodrine. Hold for systolic blood pressure greater than 110. Continue to monitor renal function and urine output.
[2023-08-07] MEDS: SEVELAMER 800 MG TAB PO SCH ×2 (11:36→17:36)
--- NOTE | 2023-08-07 12:50 | P.PN ---
Subjective Progress Note Date: 08/07/23 This is an 82-year-old female patient with an extensive medical history who presented to the ER with concerns of atrial flutter with RVR and rash. Patient remains with left femoral dialysis port. Concerns of possible ALLERGIC reaction due to antibiotics patient was given Benadryl and Solu-Medrol. Patient is a poor historian unable to recall recent events. Past medical history includes hyperlipidemia hypertension, end-stage renal disease requiring hemodialysis during previous hospitalization, osteoarthritis, GERD. Chest x-ray completed showing vascular congestion. EKG completed showing sinus tachycardia possible atrial flutter rate 144. White blood cell elevated 21.4, creatinine 2.63, bun 5 4. BNP 9640. Troponin 0.404, 0.7 696 and 1.360. Wound noted to left lower extremity. Patient was started on heparin for elevated troponins and Cardizem. Patient started on IV vancomycin. 2-D echo ordered. Unclear patient has been receiving hemodialysis. Attempting to obtain medical records. Cardiology, nephrology infectious disease and wound care service is consulted. Blood culture ordered. Repeat labs will be ordered. At this time patient is resting comfortably in bed. Current vital signs temp 98.5, heart rate 108, respiratory rate 20, blood pressure 131/72 with a pulse ox 93% on room air On 07/28/2023 patient was seen and examined on the medical floor she is alert and oriented 3 in no apparent distress, she is complaining of severe pain in the lower extremity especially at the time of dressing change, she is also complaining of fatigue and generalized weakness, otherwise she denies any complaints there is no fever or chills no headache or dizziness no chest pain no shortness of breath no cough no nausea or vomiting no abdominal pain no diarrhea no burning with urination no frequency or urgency and no hematuria. On 07/29/2023 patient is alert and oriented 3. Patient had hemodialysis cath removed with tip culture for source of infection. Blood cultures showing presumptive staph aureus. Infectious disease are following. Patient remains on IV antibiotic. White blood cell is trending down 18.8. Current vital signs temp 97.4, heart rate 87, respiratory rate 18, blood pressure 117/74 with a pulse ox 97% on room air On 07/30/2023 patient was seen and examined on the telemetry floor she is alert and oriented 3 in no apparent distress, she is complaining of generalized weakness, otherwise she denies any complaints, vital exam reveals a temperature of 98.4 pulse 71 respiration 14 blood pressure 115/67 pulse ox 95% on room air sodium 136 potassium 4.1 chloride 101 CO2 19 BUN 108 creatinine 2.59, patient is improving gradually, PT and OT consult, she remains on IV antibiotics, will follow closely On 07/31/2023 patient was seen and examined on the telemetry floor she is alert and oriented 3 in no apparent distress she is still complaining of weakness and complaining of low back pain otherwise she denies any complaints there is no fever or chills no headache or dizziness no chest pain no shortness of breath no cough no nausea or vomiting no abdominal pain no diarrhea and no urinary symptoms. Labs today are still pending, yesterday white blood count was still elevated at 20.7 BUN 108 creatinine 2.59 will continue with current antibiotics infectious disease are following On 08/01/2023 patient was seen and examined on the telemetry floor she is alert and oriented 3 in no apparent distress she is complaining of generalized weakness and low back pain, otherwise she denies any complaints there is no fever or chills no headache or dizziness no chest pain no shortness of breath no cough no nausea or vomiting no abdominal pain no diarrhea and no urinary symptoms. Today white blood count is 23.9 hemoglobin 8.5 platelet count 180 BUN 19 9 creatinine 3.2 On 08/02/2023 patient is alert and oriented 3 currently sitting up in bed eating breakfast. Repeat blood culture has been ordered per infectious disease due to continuing leukocytosis. Antibiotics adjusted to nafcillin per ID. Current vital signs temp 97.6, heart rate 77, respiratory rate 18, blood pressure 87/53 with pulse ox 96% on room. Patient denies chest pain or short ness breath. Patient denies nausea vomiting or diarrhea. Patient denies any urinary burning or frequency On 08/03/2023 patient is alert and oriented 3 currently resting in bed eating breakfast. Patient underwent debridement of right heel pressure ulcer with Dr. Miranda yesterday. White blood cell today slightly improved at 18.17. Creatinine 3.1 nephrology.\, infectious disease and wound care service is following. Patient denies chest pain or shortness of breath. Patient denies nausea vomiting or diarrhea. Patient denies any urinary burning or frequency On 08/04/2023 patient was seen and examined on the medical floor, she is alert and oriented 3 she is complaining of bilateral lower extremity pain especially at the time of dressing change and debridement of her wounds. White blood cell today slightly improved at 18.17. Creatinine 3.1 nephrology.\, infectious disease and wound care service is following. Patient denies chest pain or shortness of breath. Patient denies nausea vomiting or diarrhea. Patient denies any urinary burning or frequency On 08/05/2023 patient is alert and oriented 3. Patient remains on IV antibiotics. Current vital signs temp 97.5, heart rate 62, respiratory rate 16, blood pressure 93/62 with pulse ox 97% on room air. Lab work currently pending. Patient denies chest pain or shortness breath. Patient denies nausea vomiting or diarrhea. Patient denies any urinary burning or frequency. On 08/06/2023 patient was seen and examined on the medical floor she is alert and oriented 3 in no apparent distress, she is feeling better today she is sitting up and eating her meal there is no fever or chills no headache or dizziness no chest pain no shortness of breath no cough no nausea or vomiting no abdominal pain no diarrhea and no urinary symptoms. On 08/07/2023 patient was seen and examined on the medical floor is alert and oriented in no apparent distress she is still complaining of generalized weakness and complaining of pain in bilateral lower extremities otherwise she denies any complaints her vital exam reveals a temperature of 98.2 pulse 59 respiration 16 blood pressure 101/60 pulse ox 97% on room air her white blood co unt is 13.2 hemoglobin 7.7 platelet count 363 BUN 74 creatinine 2.42 Objective - Vital Signs Vital signs: Vital Signs Temp 98 F 08/07/23 02:00 Pulse 58 L 08/07/23 02:00 Resp 16 08/07/23 02:00 BP 92/50 08/07/23 02:00 Pulse Ox 97 08/07/23 02:00 FiO2 Intake & Output 08/06/23 08/07/23 08/07/23 18:59 06:59 18:59 Intake Total 900 Output Total 700 400 Balance -700 500 Intake: Intake, IV Titration 300 Amount Nafcillin 2 gm In 300 Dextrose 5% in Water 100 ml @ 50 mls/hr IVPB Q4H [facility] Rx#:[id number] Oral 600 Output: Urine 700 400 Uretheral (Singh) 350 Other: Voiding Method Diaper Indwelling Catheter Incontinent # Bowel Movements 1 1 - Exam Head normocephalic Neck supple Lungs diminished bilaterally Heart regular rate and rhythm S1-S2, no rub or gallop Abdomen is soft nontender nondistended positive bowel sounds no hepatosplenomegaly Extremities multiple wounds to lower extremities Neuro alert and orientated to 3 - Labs CBC & Chem 7: 08/07/23 07:37 08/07/23 07:37 Labs: Abnormal Lab Results - Last 24 Hours (Table) 08/07/23 08/07/23 Range/Units 07:37 07:37 WBC 13.2 H (3.8-10.6) k/uL RBC 2.42 L (3.80-5.40) m/uL Hgb 7.7 L (11.4-16.0) gm/dL Hct 26.6 L (34.0-46.0) % MCV 109.7 H D (80.0-100.0) fL MCHC 29.0 L (31.0-37.0) g/dL RDW 15.6 H (11.5-15.5) % Macrocytosis Marked A BUN 74 H (7-17) mg/dL Creatinine 2.42 H (0.52-1.04) mg/dL Calcium 7.6 L (8.4-10.2) mg/dL Phosphorus 4.9 H (2.5-4.5) mg/dL Total Protein 5.0 L (6.3-8.2) g/dL Albumin 2.1 L (3.5-5.0) g/dL Microbiology - Last 24 Hours (Table) 08/01/23 14:44 Blood Culture - Final Blood Assessment and Plan Assessment: 1. Atrial flutter with RVR 2. Possible ALLERGIC reaction 3. Right lower Cellulitis with multiple wounds 4. Acute renal failure patient was started on hemodialysis during previous admission right femoral dialysis catheter in place. Unclear if patient is still receiving hemodialysis [facility] facility attempting to obtain medical records. Cat heter removed and cultured 5. Elevated troponins 6. History of recent admission following fall with rhabdomyolysis 7. Recent urinary tract infection with E. coli bacteremia 8. Recent treatment for suspected C. diff 9. 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 GI prophylaxis Protonix Cardiology, nephrology, infectious disease and wound care service is consulted Hemodialysis catheter removed and cultured. Status post wound debridement on 08/02/2023 Patient remains on IV antibiotics Repeat blood cultures ordered per ID on 08/01/2023
[2023-08-07] MEDS: HYDROmorphone 0.5 MG/0.5 ML SYRINGE IVP PRN ×3 (13:26→20:55)
--- NOTE | 2023-08-07 13:41 | P.PN ---
Subjective Progress Note Date: 08/07/23 Principal diagnosis: MSSA bacteremia Patient is a 82-year-old female with a past medical history significant for hypertension hyperlipidemia history of chronic lower extremity venous stasis ulcer with recent admission to the hospital have E. coli bacteremia patient did develop ATN requiring hemodialysis patient was subsequently stabilized and transferred to local detention for rehabilitation , patient did have improvement her kidney function and did not require any further dialysis however the patient continued to have right groin dialysis catheter no presenting to the hospital with weakness tachycardia and did have a positive blood culture with MSSA. Patient did have a mole of the right groin dialysis catheter by vascular surgery on 07/28/2023, patient did have deployment of bilateral heel wound by Dr. Miranda on 08/02/2023 On today's evaluation that is progress points, the patient denies pain to bilateral heel area Patient did have white count is 13.2, creatinine is 2.42, catheter tip positive blood culture repeated on 07/28/2023 also positive, blood culture from 08/01/2023 so far negative cultures obtained from heel wound were obtained from the micro-lab after multiple calls did grew drug-resistant Pseudomonas Proteus and enterococcus faecalis Objective - Vital Signs Vital signs: Vital Signs Temp 97.5 F L 08/07/23 08:00 Pulse 61 08/07/23 08:00 Resp 19 08/07/23 08:00 BP 101/60 08/07/23 08:00 Pulse Ox 97 08/07/23 08:00 FiO2 Intake & Output 08/06/23 08/07/23 08/07/23 18:59 06:59 18:59 Intake Total 900 Output Total 700 400 Balance -700 500 Intake: Intake, IV Titration 300 Amount Nafcillin 2 gm In 300 Dextrose 5% in Water 100 ml @ 50 mls/hr IVPB Q4H [facility] Rx#:[id number] Oral 600 Output: Urine 700 400 Uretheral (Singh) 350 Other: Voiding Method Diaper Indwelling Catheter Indwelling Catheter Incontinent # Bowel Movements 1 1 - Exam GENERAL DESCRIPTION: An elderly female lying in bed in no distress RESPIRATORY SYSTEM: Unlabored breathing , decreased breath sounds at bases HEART: S1 S2 regular rate and rhythm , ABDOMEN: Soft , no tenderness EXTREMITIES: Bilateral heels wounds are currently dressed - Labs CBC & Chem 7: 08/07/23 07:37 08/07/23 07:37 Labs: Abnormal Lab Results - Last 24 Hours (Table) 08/07/23 08/07/23 Range/Units 07:37 07:37 WBC 13.2 H (3.8-10.6) k/uL RBC 2.42 L (3.80-5.40) m/uL Hgb 7.7 L (11.4-16.0) gm/dL Hct 26.6 L (34.0-46.0) % MCV 109.7 H D (80.0-100.0) fL MCHC 29.0 L (31.0-37.0) g/dL RDW 15.6 H (11.5-15.5) % Neutrophils # 10.6 H (1.3-7.7) k/uL Macrocytosis Marked A BUN 74 H (7-17) mg/dL Creatinine 2.42 H (0.52-1.04) mg/dL Calcium 7.6 L (8.4-10.2) mg/dL Phosphorus 4.9 H (2.5-4.5) mg/dL Total Protein 5.0 L (6.3-8.2) g/dL Albumin 2.1 L (3.5-5.0) g/dL Microbiology - Last 24 Hours (Table) 08/01/23 14:44 Blood Culture - Final Blood Assessment and Plan (1) Cellulitis Current Visit: Yes Status: Acute Code(s): L03.90 - CELLULITIS, UNSPECIFIED SNOMED Code(s): 071973186 (2) Leukocytosis Current Visit: Yes Status: Acute Code(s): D72.829 - ELEVATED WHITE BLOOD CELL COUNT, UNSPECIFIED SNOMED Code(s): 458199699 (3) Stage II pressure ulcer of left buttock Current Visit: Yes Status: Acute Code(s): L89.322 - PRESSURE ULCER OF LEFT BUTTOCK, STAGE 2 SNOMED Code(s): 80468939915335 (4) Stage II pressure ulcer of left heel Current Visit: Yes Status: Acute Code(s): L89.622 - PRESSURE ULCER OF LEFT HEEL, STAGE 2 SNOMED Code(s): 75333963760876 (5) Stage II pressure ulcer of right buttock Current Visit: Yes Status: Acute Code(s): L89.312 - PRESSURE ULCER OF RIGHT BUTTOCK, STAGE 2 SNOMED Code(s): 21108980787444 (6) MSSA bacteremia Current Visit: Yes Status: Acute Code(s): R78.81 - BACTEREMIA; B95.61 - METHICILLIN SUSCEP STAPH INFCT CAUSING DIS CLASSD ELSWHR SNOMED Code(s): 296308191 Plan: 1patient presented to hospital with tachycardia patient did have a low-grade fever and elevated white count and MSSA bacteremia source is likely dialysis catheter infection which has been discontinued 2-right lower extremity wound care with a dry Aquacel dressing and Daniel wrap for compression 3-we will apply zinc to the excoriated skin to the bilateral gluteal and sacral area keep the area of the pressure 4 blood culture repeated on 07/28/2023 positive however blood cultures on 08/01/2023 has been negative, we will discontinue nafcillin start the patient on daptomycin to finish treatment for her bacteremia 5- patient also have bilateral heel infected wound, status post debridement of bilateral heel wounds and those cultures are growing drug-resistant Pseudomonas Enterococcus faecalis and Proteus we will start the patient on meropenem and continue local wound care per vascular surgery Dictation was produced using [employer] dictation software. please excuse any grammatical, word or spelling errors. Time with Patient: Less than 30
[2023-08-07] MEDS: MEROPENEM 1 GM in SODIUM CHLORIDE 0.9% 100 ML IVPB SCH ×2 (15:27→23:31)
[2023-08-07] MEDS: LOPERAMIDE 2 MG CAP PO PRN ×2 (15:27→20:56)
[2023-08-07] MEDS: MONTELUKAST 10 MG TAB PO SCH (20:50)
[2023-08-08] MEDS: HYDROcodone/APAP 7.5-325MG 1 EACH TAB PO PRN ×4 (00:03→21:03)
[2023-08-08] MEDS: LOPERAMIDE 2 MG CAP PO PRN ×3 (06:29→21:03)
[2023-08-08] MEDS: NYSTATIN 100,000 UNIT/ML SUSP 500,000 UNIT/5 ML CUP PO SCH ×4 (07:50→21:03)
[2023-08-08] MEDS: CHOLESTYRAMINE (WITH SUGAR) 4 GM PACKET PO SCH ×2 (07:50→21:03)
[2023-08-08] MEDS: metroNIDAZOLE 500 MG TAB PO SCH ×3 (07:51→21:03)
[2023-08-08] MEDS: MIDODRINE 5 MG TAB PO SCH ×3 (07:51→16:32)
[2023-08-08] MEDS: PANTOPRAZOLE 40 MG TABLET PO SCH (07:52)
[2023-08-08] MEDS: SODIUM BICARBONATE TAB 650 MG TAB PO SCH ×2 (07:52→21:03)
[2023-08-08] MEDS: METOPROLOL TARTRATE 50 MG TAB PO SCH ×2 (07:52→21:03)
[2023-08-08] MEDS: FLUoxetine HCL 20 MG CAP PO SCH (07:52)
[2023-08-08] MEDS: HYDROPHILIC CREAM 180 GM TUBE TOPICAL SCH (07:52)
[2023-08-08] MEDS: PRAVASTATIN SODIUM 20 MG TAB PO SCH (07:52)
[2023-08-08] MEDS: ASCORBIC ACID 500 MG TAB PO SCH (07:52)
[2023-08-08] MEDS: ENOXAPARIN 30 MG/0.3 ML SYRINGE SQ SCH (07:52)
[2023-08-08] MEDS: ASPIRIN 81 MG PO SCH (07:52)
[2023-08-08] MEDS: DARBEPOETIN ALFA 40 MCG/0.4 ML SYRINGE SQ SCH (10:01)
[2023-08-08] MEDS: HYDROmorphone 0.5 MG/0.5 ML SYRINGE IVP PRN (10:01)
[2023-08-08] MEDS: SEVELAMER 800 MG TAB PO SCH ×2 (11:59→16:32)
[2023-08-08] MEDS: MEROPENEM 1 GM in SODIUM CHLORIDE 0.9% 100 ML IVPB SCH ×2 (12:00→23:36)
--- NOTE | 2023-08-08 12:06 | P.PN ---
Subjective Patient is seen for follow-up for acute kidney injury. Renal function is improved Currently off of hemodialysis. Maintained on antibiotics for MSSA bacteremia. Left femoral tunneled catheter was removed. Renal function remained stable with serum creatinine at 2.4 mg/dL. Objective - Vital Signs Vital signs: Vital Signs Temp 97.8 F 08/08/23 07:00 Pulse 65 08/08/23 07:00 Resp 18 08/08/23 07:00 BP 93/57 08/08/23 07:00 Pulse Ox 95 08/08/23 07:00 FiO2 Intake & Output 08/07/23 08/08/23 08/08/23 18:59 06:59 18:59 Output Total 600 600 Balance -600 -600 Output: Urine 600 600 Other: Voiding Method Indwelling Catheter Indwelling Catheter # Bowel Movements 3 1 - Exam Patient is awake, comfortable, no acute distress Alert oriented 3 Examination of the heart S1 and S2 Examination of the lungs bilateral breath sounds are heard Abdomen is soft nontender Examination lower extremities shows left leg with 1+ edema, right leg is in brace - Labs CBC & Chem 7: 08/07/23 07:37 08/07/23 07:37 Labs: Microbiology - Last 24 Hours (Table) 08/02/23 16:00 Anaerobic Culture - Final Heel - Left 08/02/23 16:00 Gram Stain - Final Foot - Right Wound Culture - Final Pseudomonas aeruginosa Proteus mirabilis Enterococcus faecalis Assessment and Plan Assessment: 1. Acute kidney injury secondary to ATN secondary to severe sepsis and rhabdomyolysis. Patient required hemodialysis but now has been off hemodialysis for more than 2 weeks . Baseline creatinine prior to acute kidney injury episode was near 0.8. Creatinine this admission has been in the range of 2.6- 3.2 - 2.42 today. Establish new baseline renal function. Nonoliguric. Ultrasound from 06/11/2023 showed no hydronephrosis. 2. Staph aureus bacteremia status post removal of groin dialysis catheter. On antibiotics. Catheter tip culture positive for staph aureus. 3. Hyperphosphatemia secondary to acute kidney injury maintained on Renvela. Phosphorus level 4.9. 4. Anemia. Possibly component of chronic kidney disease. On Aranesp. 5. Volume overload. Status post diuresis this admission. 6. Metabolic acidosis secondary to acute kidney injury maintained on oral bicarb. 7. Chronic diastolic CHF with mild to moderate mitral regurgitation. 8. Hypokalemia from poor intake and diuresis. Replaced. Improved. Plan: Continue to hold dialysis. Resume diuretics Continue antibiotics as per ID Continue to avoid nephrotoxic medications. Continue midodrine
[2023-08-08 12:13] LABS: African American GFR (CKD) 24 (>60 ml/min/1.73 sqM); Anion Gap 10 mmol/L; Blood Urea Nitrogen 72 mg/dL (7-17); C Reactive Protein 6.3 mg/dL (<1.0); Calcium 7.9 mg/dL (8.4-10.2); Carbon Dioxide 22 mmol/L (22-30); Chloride 108 mmol/L (98-107); Glucose 81 mg/dL (74-99); Magnesium 1.6 mg/dL (1.6-2.3); Non-African American GFR(CKD) 20 (>60 ml/min/1.73 sqM); Potassium 4.2 mmol/L (3.5-5.1); Sodium 140 mmol/L (137-145)
[2023-08-08 12:28] LABS: Basophils % (A) 0 %; Eosinophils # (A) 0.3 k/uL (0-0.7); Eosinophils % (A) 2 %; HCT 24.9 % (34.0-46.0); HGB 7.6 gm/dL (11.4-16.0); Hypochromasia Marked; Lymphocytes # (A) 1.2 k/uL (1.0-4.8); Lymphocytes % (A) 8 %; MCH 32.3 pg (25.0-35.0); MCHC 30.6 g/dL (31.0-37.0); MCV 105.6 fL (80.0-100.0); Macrocytosis Moderate; Mean Platelet Volume 8.5; Monocytes # (A) 0.9 k/uL (0-1.0); Monocytes % (A) 6 %; Neutrophils # (A) 12.7 k/uL (1.3-7.7); Neutrophils % (A) 83 %; Platelet Count 370 k/uL (150-450); RBC 2.36 m/uL (3.80-5.40); RDW 15.2 % (11.5-15.5); WBC 15.3 k/uL (3.8-10.6)
[2023-08-08] MEDS: TORSEMIDE 20 MG TAB PO SCH (12:56)
[2023-08-08] MEDS ORDERED: LIDOCAINE 1% INJ 10MG/ML (20 ML MDV) ONE (13:28)
[2023-08-08] MEDS ORDERED: HYDROmorphone 1 MG/ML 1 ML SYRINGE IVP STA (13:59)
[2023-08-08] MEDS ORDERED: SILVER NITRATE APPLICATOR 1 EACH STICK..EA. TOPICAL STA (16:38)
--- NOTE | 2023-08-08 17:15 | P.PN ---
Subjective Progress Note Date: 08/08/23 This is an 82-year-old female patient with an extensive medical history who presented to the ER with concerns of atrial flutter with RVR and rash. Patient remains with left femoral dialysis port. Concerns of possible ALLERGIC reaction due to antibiotics patient was given Benadryl and Solu-Medrol. Patient is a poor historian unable to recall recent events. Past medical history includes hyperlipidemia hypertension, end-stage renal disease requiring hemodialysis during previous hospitalization, osteoarthritis, GERD. Chest x-ray completed showing vascular congestion. EKG completed showing sinus tachycardia possible atrial flutter rate 144. White blood cell elevated 21.4, creatinine 2.63, bun 5 4. BNP 9640. Troponin 0.404, 0.7 696 and 1.360. Wound noted to left lower extremity. Patient was started on heparin for elevated troponins and Cardizem. Patient started on IV vancomycin. 2-D echo ordered. Unclear patient has been receiving hemodialysis. Attempting to obtain medical records. Cardiology, nephrology infectious disease and wound care service is consulted. Blood culture ordered. Repeat labs will be ordered. At this time patient is resting comfortably in bed. Current vital signs temp 98.5, heart rate 108, respiratory rate 20, blood pressure 131/72 with a pulse ox 93% on room air On 07/28/2023 patient was seen and examined on the medical floor she is alert and oriented 3 in no apparent distress, she is complaining of severe pain in the lower extremity especially at the time of dressing change, she is also complaining of fatigue and generalized weakness, otherwise she denies any complaints there is no fever or chills no headache or dizziness no chest pain no shortness of breath no cough no nausea or vomiting no abdominal pain no diarrhea no burning with urination no frequency or urgency and no hematuria. On 07/29/2023 patient is alert and oriented 3. Patient had hemodialysis cath removed with tip culture for source of infection. Blood cultures showing presumptive staph aureus. Infectious disease are following. Patient remains on IV antibiotic. White blood cell is trending down 18.8. Current vital signs temp 97.4, heart rate 87, respiratory rate 18, blood pressure 117/74 with a pulse ox 97% on room air On 07/30/2023 patient was seen and examined on the telemetry floor she is alert and oriented 3 in no apparent distress, she is complaining of generalized weakness, otherwise she denies any complaints, vital exam reveals a temperature of 98.4 pulse 71 respiration 14 blood pressure 115/67 pulse ox 95% on room air sodium 136 potassium 4.1 chloride 101 CO2 19 BUN 108 creatinine 2.59, patient is improving gradually, PT and OT consult, she remains on IV antibiotics, will follow closely On 07/31/2023 patient was seen and examined on the telemetry floor she is alert and oriented 3 in no apparent distress she is still complaining of weakness and complaining of low back pain otherwise she denies any complaints there is no fever or chills no headache or dizziness no chest pain no shortness of breath no cough no nausea or vomiting no abdominal pain no diarrhea and no urinary symptoms. Labs today are still pending, yesterday white blood count was still elevated at 20.7 BUN 108 creatinine 2.59 will continue with current antibiotics infectious disease are following On 08/01/2023 patient was seen and examined on the telemetry floor she is alert and oriented 3 in no apparent distress she is complaining of generalized weakness and low back pain, otherwise she denies any complaints there is no fever or chills no headache or dizziness no chest pain no shortness of breath no cough no nausea or vomiting no abdominal pain no diarrhea and no urinary symptoms. Today white blood count is 23.9 hemoglobin 8.5 platelet count 180 BUN 19 9 creatinine 3.2 On 08/02/2023 patient is alert and oriented 3 currently sitting up in bed eating breakfast. Repeat blood culture has been ordered per infectious disease due to continuing leukocytosis. Antibiotics adjusted to nafcillin per ID. Current vital signs temp 97.6, heart rate 77, respiratory rate 18, blood pressure 87/53 with pulse ox 96% on room. Patient denies chest pain or short ness breath. Patient denies nausea vomiting or diarrhea. Patient denies any urinary burning or frequency On 08/03/2023 patient is alert and oriented 3 currently resting in bed eating breakfast. Patient underwent debridement of right heel pressure ulcer with Dr. Miranda yesterday. White blood cell today slightly improved at 18.17. Creatinine 3.1 nephrology.\, infectious disease and wound care service is following. Patient denies chest pain or shortness of breath. Patient denies nausea vomiting or diarrhea. Patient denies any urinary burning or frequency On 08/04/2023 patient was seen and examined on the medical floor, she is alert and oriented 3 she is complaining of bilateral lower extremity pain especially at the time of dressing change and debridement of her wounds. White blood cell today slightly improved at 18.17. Creatinine 3.1 nephrology.\, infectious disease and wound care service is following. Patient denies chest pain or shortness of breath. Patient denies nausea vomiting or diarrhea. Patient denies any urinary burning or frequency On 08/05/2023 patient is alert and oriented 3. Patient remains on IV antibiotics. Current vital signs temp 97.5, heart rate 62, respiratory rate 16, blood pressure 93/62 with pulse ox 97% on room air. Lab work currently pending. Patient denies chest pain or shortness breath. Patient denies nausea vomiting or diarrhea. Patient denies any urinary burning or frequency. On 08/06/2023 patient was seen and examined on the medical floor she is alert and oriented 3 in no apparent distress, she is feeling better today she is sitting up and eating her meal there is no fever or chills no headache or dizziness no chest pain no shortness of breath no cough no nausea or vomiting no abdominal pain no diarrhea and no urinary symptoms. On 08/07/2023 patient was seen and examined on the medical floor is alert and oriented in no apparent distress she is still complaining of generalized weakness and complaining of pain in bilateral lower extremities otherwise she denies any complaints her vital exam reveals a temperature of 98.2 pulse 59 respiration 16 blood pressure 101/60 pulse ox 97% on room air her white blood co unt is 13.2 hemoglobin 7.7 platelet count 363 BUN 74 creatinine 2.42 On 08/08/2023 patient was seen and examined on the medical floor she is alert and oriented in no apparent distress she is still complaining of severe pain in the lower extremities especially at the time of debridement or dressing changes she is also complaining of generalized weakness otherwise she denies any complaints there is no fever or chills no chest pain or shortness of breath no cough , no nausea or vomiting no abdominal pain no diarrhea and no urinary symptoms Objective - Vital Signs Vital signs: Vital Signs Temp 98.0 F 08/08/23 12:01 Pulse 70 08/08/23 12:01 Resp 17 08/08/23 12:01 BP 106/63 08/08/23 12:01 Pulse Ox 98 08/08/23 12:01 FiO2 Intake & Output 08/07/23 08/08/23 08/08/23 18:59 06:59 18:59 Output Total 600 600 Balance -600 -600 Output: Urine 600 600 Other: Voiding Method Indwelling Catheter Indwelling Catheter # Bowel Movements 3 1 - Exam Head normocephalic Neck supple Lungs diminished bilaterally Heart regular rate and rhythm S1-S2, no rub or gallop Abdomen is soft nontender nondistended positive bowel sounds no hepatospleno megaly Extremities multiple wounds to lower extremities Neuro alert and orientated to 3 - Labs CBC & Chem 7: 08/08/23 11:13 08/08/23 11:13 Labs: Abnormal Lab Results - Last 24 Hours (Table) 08/08/23 08/08/23 Range/Units 11:13 11:13 WBC 15.3 H (3.8-10.6) k/uL RBC 2.36 L (3.80-5.40) m/uL Hgb 7.6 L (11.4-16.0) gm/dL Hct 24.9 L (34.0-46.0) % MCV 105.6 H (80.0-100.0) fL MCHC 30.6 L (31.0-37.0) g/dL Neutrophils # 12.7 H (1.3-7.7) k/uL Chloride 108 H (98-107) mmol/L BUN 72 H (7-17) mg/dL Creatinine 2.17 H (0.52-1.04) mg/dL Calcium 7.9 L (8.4-10.2) mg/dL C-Reactive Protein 6.3 H (<1.0) mg/dL Microbiology - Last 24 Hours (Table) 08/02/23 16:00 Anaerobic Culture - Final Heel - Left 08/02/23 16:00 Gram Stain - Final Foot - Right Wound Culture - Final Pseudomonas aeruginosa Proteus mirabilis Enterococcus faecalis Assessment and Plan Assessment: 1. Atrial flutter with RVR 2. Possible ALLERGIC reaction 3. Right lower Cellulitis with multiple wounds 4. Acute renal failure patient was started on hemodialysis during previous admission right femoral dialysis catheter in place. Unclear if patient is still receiving hemodialysis [facility] facility attempting to obtain medical records. Catheter removed and cultured 5. Elevated troponins 6. History of recent admission following fall with rhabdomyolysis 7. Recent urinary tract infection with E. coli bacteremia 8. Recent treatment for suspected C. diff 9. 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 GI prophylaxis Protonix Cardiology, nephrology, infectious disease and wound care service is consulted Hemodialysis catheter removed and cultured. Status post wound debridement on 08/02/2023 Patient remains on IV antibiotics Repeat blood cultures ordered per ID on 08/01/2023
[2023-08-08] MEDS: MONTELUKAST 10 MG TAB PO SCH (21:03)
[2023-08-09] MEDS: HYDROmorphone 0.5 MG/0.5 ML SYRINGE IVP PRN ×4 (00:25→18:51)
[2023-08-09] MEDS: HYDROcodone/APAP 7.5-325MG 1 EACH TAB PO PRN ×3 (04:41→21:05)
[2023-08-09] MEDS: LOPERAMIDE 2 MG CAP PO PRN ×2 (04:41→09:17)
--- NOTE | 2023-08-09 09:01 | P.PN ---
Subjective Progress Note Date: 08/09/23 This is an 82-year-old female patient with an extensive medical history who presented to the ER with concerns of atrial flutter with RVR and rash. Patient remains with left femoral dialysis port. Concerns of possible ALLERGIC reaction due to antibiotics patient was given Benadryl and Solu-Medrol. Patient is a poor historian unable to recall recent events. Past medical history includes hyperlipidemia hypertension, end-stage renal disease requiring hemodialysis during previous hospitalization, osteoarthritis, GERD. Chest x-ray completed showing vascular congestion. EKG completed showing sinus tachycardia possible atrial flutter rate 144. White blood cell elevated 21.4, creatinine 2.63, bun 54. BNP 9640. Troponin 0.404, 0.7 696 and 1.360. Wound noted to left lower extremity. Patient was started on heparin for elevated troponins and Cardizem. Patient started on IV vancomycin. 2-D echo ordered. Unclear patient has been receiving hemodialysis. Attempting to obtain medical records. Cardiology, nephrology infectious disease and wound care service is consulted. Blood culture ordered. Repeat labs will be ordered. At this time patient is resting comfortably in bed. Current vital signs temp 98.5, heart rate 108, respiratory rate 20, blood pressure 131/72 with a pulse ox 93% on room air On 07/28/2023 patient was seen and examined on the medical floor she is alert and oriented 3 in no apparent distress, she is complaining of severe pain in the lower extremity especially at the time of dressing change, she is also complaining of fatigue and generalized weakness, otherwise she denies any complaints there is no fever or chills no headache or dizziness no chest pain no shortness of breath no cough no nausea or vomiting no abdominal pain no diarrhea no burning with urination no frequency or urgency and no hematuria. On 07/29/2023 patient is alert and oriented 3. Patient had hemodialysis cath removed with tip culture for source of infection. Blood cultures showing presumptive staph aureus. Infectious disease are following. Patient remains on IV antibiotic. White blood cell is trending down 18.8. Current vital signs temp 97.4, heart rate 87, respiratory rate 18, blood pressure 117/74 with a pulse ox 97% on room air On 07/30/2023 patient was seen and examined on the telemetry floor she is alert and oriented 3 in no apparent distress, she is complaining of generalized weakness, otherwise she denies any complaints, vital exam reveals a temperature of 98.4 pulse 71 respiration 14 blood pressure 115/67 pulse ox 95% on room air sodium 136 potassium 4.1 chloride 101 CO2 19 BUN 108 creatinine 2.59, patient is improving gradually, PT and OT consult, she remains on IV antibiotics, will follow closely On 07/31/2023 patient was seen and examined on the telemetry floor she is alert and oriented 3 in no apparent distress she is still complaining of weakness and complaining of low back pain otherwise she denies any complaints there is no fever or chills no headache or dizziness no chest pain no shortness of breath no cough no nausea or vomiting no abdominal pain no diarrhea and no urinary symptoms. Labs today are still pending, yesterday white blood count was still elevated at 20.7 BUN 108 creatinine 2.59 will continue with current antibiotics infectious disease are following On 08/01/2023 patient was seen and examined on the telemetry floor she is alert and oriented 3 in no apparent distress she is complaining of generalized weakness and low back pain, otherwise she denies any complaints there is no fever or chills no headache or dizziness no chest pain no shortness of breath no cough no nausea or vomiting no abdominal pain no diarrhea and no urinary symptoms. Today white blood count is 23.9 hemoglobin 8.5 platelet count 180 BUN 19 9 creatinine 3.2 On 08/02/2023 patient is alert and oriented 3 currently sitting up in bed eating breakfast. Repeat blood culture has been ordered per infectious disease due to continuing leukocytosis. Antibiotics adjusted to nafcillin per ID. Current vital signs temp 97.6, heart rate 77, respiratory rate 18, blood pressure 87/53 with pulse ox 96% on room. Patient denies chest pain or shortn ess breath. Patient denies nausea vomiting or diarrhea. Patient denies any urinary burning or frequency On 08/03/2023 patient is alert and oriented 3 currently resting in bed eating breakfast. Patient underwent debridement of right heel pressure ulcer with Dr. Miranda yesterday. White blood cell today slightly improved at 18.17. Creatinine 3.1 nephrology.\, infectious disease and wound care service is following. Patient denies chest pain or shortness of breath. Patient denies nausea vomiting or diarrhea. Patient denies any urinary burning or frequency On 08/04/2023 patient was seen and examined on the medical floor, she is alert and oriented 3 she is complaining of bilateral lower extremity pain especially at the time of dressing change and debridement of her wounds. White blood cell today slightly improved at 18.17. Creatinine 3.1 nephrology.\, infectious disease and wound care service is following. Patient denies chest pain or shortness of breath. Patient denies nausea vomiting or diarrhea. Patient denies any urinary burning or frequency On 08/05/2023 patient is alert and oriented 3. Patient remains on IV antibiotics. Current vital signs temp 97.5, heart rate 62, respiratory rate 16, blood pressure 93/62 with pulse ox 97% on room air. Lab work currently pending. Patient denies chest pain or shortness breath. Patient denies nausea vomiting or diarrhea. Patient denies any urinary burning or frequency. On 08/06/2023 patient was seen and examined on the medical floor she is alert and oriented 3 in no apparent distress, she is feeling better today she is sitting up and eating her meal there is no fever or chills no headache or dizziness no chest pain no shortness of breath no cough no nausea or vomiting no abdominal pain no diarrhea and no urinary symptoms. On 08/07/2023 patient was seen and examined on the medical floor is alert and oriented in no apparent distress she is still complaining of generalized weakness and complaining of pain in bilateral lower extremities otherwise she denies any complaints her vital exam reveals a temperature of 98.2 pulse 59 respiration 16 blood pressure 101/60 pulse ox 97% on room air her white blood count is 13.2 hemoglobin 7.7 platelet count 363 BUN 74 creatinine 2.42 On 08/08/2023 patient was seen and examined on the medical floor she is alert and oriented in no apparent distress she is still complaining of severe pain in the lower extremities especially at the time of debridement or dressing changes she is also complaining of generalized weakness otherwise she denies any complaints there is no fever or chills no chest pain or shortness of breath no cough , no nausea or vomiting no abdominal pain no diarrhea and no urinary symptoms On 08/09/2023 patient is alert and oriented 3. Patient reports improvement in his overall discomfort. Patient remains on IV daptomycin and meropenem. N ephrology infectious he services are following. Patient denies chest pain or shortness breath. Patient denies nausea vomiting or diarrhea. Patient denies any urinary frequency Objective - Vital Signs Vital signs: Vital Signs Temp 98.1 F 08/09/23 07:02 Pulse 74 08/09/23 07:02 Resp 18 08/09/23 07:02 BP 92/59 08/09/23 07:02 Pulse Ox 94 L 08/09/23 07:02 FiO2 Intake & Output 08/08/23 08/09/23 08/09/23 18:59 06:59 18:59 Intake Total 700 Output Total 400 350 Balance -400 350 Weight 77.111 kg Intake: Intake, IV Titration 100 Amount Meropenem 1 gm In Sodium 100 Chloride 0.9% 100 ml @ 33 .3 mls/hr IVPB Q12HR@0000 ,1200 [facility] Rx#:[id number] Oral 600 Output: Urine 400 350 Other: Voiding Method Indwelling Catheter Indwelling Catheter # Bowel Movements 1 1 - Exam Head normocephalic Neck supple Lungs diminished bilaterally Heart regular rate and rhythm S1-S2, no rub or gallop Abdomen is soft nontender nondistended positive bowel sounds no hepatosplenomegaly Extremities multiple wounds to lower extremities Neuro alert and orientated to 3 - Labs CBC & Chem 7: 08/08/23 11:13 08/08/23 11:13 Labs: Abnormal Lab Results - Last 24 Hours (Table) 08/08/23 08/08/23 Range/Units 11:13 11:13 WBC 15.3 H (3.8-10.6) k/uL RBC 2.36 L (3.80-5.40) m/uL Hgb 7.6 L (11.4-16.0) gm/dL Hct 24.9 L (34.0-46.0) % MCV 105.6 H (80.0-100.0) fL MCHC 30.6 L (31.0-37.0) g/dL Neutrophils # 12.7 H (1.3-7.7) k/uL Chloride 108 H (98-107) mmol/L BUN 72 H (7-17) mg/dL Creatinine 2.17 H (0.52-1.04) mg/dL Calcium 7.9 L (8.4-10.2) mg/dL C-Reactive Protein 6.3 H (<1.0) mg/dL Microbiology - Last 24 Hours (Table) 08/02/23 16:00 Anaerobic Culture - Final Heel - Left 08/02/23 16:00 Gram Stain - Final Foot - Right Wound Culture - Final Pseudomonas aeruginosa Proteus mirabilis Enterococcus faecalis Assessment and Plan Assessment: 1. Atrial flutter with RVR 2. Possible ALLERGIC reaction 3. Right lower Cellulitis with multiple wounds 4. Acute renal failure patient was started on hemodialysis during previous admission right femoral dialysis catheter in place. Unclear if patient is still receiving hemodialysis [facility] facility attempting to obtain medical records. Catheter removed and cultured 5. Elevated troponins 6. History of recent admission following fall with rhabdomyolysis 7. Recent urinary tract infection with E. coli bacteremia 8. Recent treatment for suspected C. diff 9. 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 GI prophylaxis Protonix Cardiology, nephrology, infectious disease and wound care service is consulted Hemodialysis catheter removed and cultured. Status post wound debridement on 08/02/2023 Patient remains on IV antibiotics Repeat blood cultures ordered per ID on 08/01/2023
[2023-08-09] MEDS: ENOXAPARIN 30 MG/0.3 ML SYRINGE SQ SCH (09:17)
[2023-08-09] MEDS: SODIUM BICARBONATE TAB 650 MG TAB PO SCH ×2 (09:17→21:03)
[2023-08-09] MEDS: CHOLESTYRAMINE (WITH SUGAR) 4 GM PACKET PO SCH ×2 (09:17→21:02)
[2023-08-09] MEDS: ASPIRIN 81 MG PO SCH (09:18)
[2023-08-09] MEDS: metroNIDAZOLE 500 MG TAB PO SCH (09:18)
[2023-08-09] MEDS: MIDODRINE 5 MG TAB PO SCH ×3 (09:18→17:42)
[2023-08-09] MEDS: PANTOPRAZOLE 40 MG TABLET PO SCH (09:18)
[2023-08-09] MEDS: METOPROLOL TARTRATE 50 MG TAB PO SCH ×2 (09:18→21:03)
[2023-08-09] MEDS: FLUoxetine HCL 20 MG CAP PO SCH (09:18)
[2023-08-09] MEDS: ASCORBIC ACID 500 MG TAB PO SCH (09:18)
[2023-08-09] MEDS: PRAVASTATIN SODIUM 20 MG TAB PO SCH (09:19)
[2023-08-09] MEDS: TORSEMIDE 20 MG TAB PO SCH (09:19)
[2023-08-09] MEDS: HYDROPHILIC CREAM 180 GM TUBE TOPICAL SCH (09:19)
[2023-08-09] MEDS: NYSTATIN 100,000 UNIT/ML SUSP 500,000 UNIT/5 ML CUP PO SCH ×4 (09:19→21:06)
[2023-08-09 11:16] LABS: ALT 11 U/L (8-44); AST 20 U/L (13-35); Albumin 2.3 d/dL (3.8-4.9); Albumin/Globulin Ratio 0.82 Ratio (1.60-3.17); Alkaline Phosphatase 64 U/L (41-126); BUN/Creat Ratio 27.44 Ratio (12.00-20.00); Blood Urea Nitrogen 68.6 mg/dL (9.0-27.0); Calcium 8.4 mg/dL (8.7-10.3); Carbon Dioxide 20.9 mmol/L (21.6-31.8); Chloride 107 mmol/L (96-109); Globulin 2.8 d/dL (1.6-3.3); Glucose 89 mg/dL (70-110); Potassium 4.8 mmol/L (3.5-5.5); Sodium 141 mmol/L (135-145); Total Bilirubin <0.2 mg/dL (0.3-1.2); Total Protein 5.1 d/dL (6.2-8.2)
[2023-08-09 11:45] LABS: Basophils # (M) 0 X 10*3/uL (0.00-0.10); Eosinophils # (M) 0 X 10*3/uL (0.04-0.35); HCT 23.1 % (37.2-46.3); HGB 6.5 d/dL (12.0-15.0); Hypochromasia (M) 2+; Lymphocytes # (M) 0.74 X 10*3/uL (0.90-5.00); MCH 30.8 pg (27.0-32.0); MCHC 28.1 d/dL (32.0-37.0); MCV 109.5 FL (80.0-97.0); Macrocytosis (M) 2+; Mean Platelet Volume 10.4 FL (9.5-12.2); Metamyelocytes % 2 % (0-0); Monocytes # (M) 0.44 X 10*3/uL (0.20-1.00); Myelocytes % 1 % (0-0); NRBC Per 100 WBC 0 X 10*3/uL (0.00-0.01); Neutrophils # (M) 13.08 X 10*3/uL (1.80-7.70); Neutrophils % (M) 89 %; Platelet Count 321 X 10*3/uL (140-440); RBC 2.11 X 10*6/uL (4.10-5.20); RDW 16.1 % (11.5-14.5)
[2023-08-09] MEDS: SEVELAMER 800 MG TAB PO SCH ×2 (12:16→17:42)
[2023-08-09] MEDS: MEROPENEM 1 GM in SODIUM CHLORIDE 0.9% 100 ML IVPB SCH (12:17)
--- NOTE | 2023-08-09 13:00 | P.PN ---
Subjective Patient is seen for follow-up for acute kidney injury. Renal function is improved Currently off of hemodialysis. Maintained on antibiotics for MSSA bacteremia. Left femoral tunneled catheter was removed. Renal function remaines stable with serum creatinine at 2.1 -2.4 mg/dL. Hemoglobin 6.5 g/dL today. Patient is is receiving packed RBCs Objective - Vital Signs Vital signs: Vital Signs Temp 98.1 F 08/09/23 07:02 Pulse 74 08/09/23 07:02 Resp 18 08/09/23 07:02 BP 92/59 08/09/23 07:02 Pulse Ox 94 L 08/09/23 07:02 FiO2 Intake & Output 08/08/23 08/09/23 08/09/23 18:59 06:59 18:59 Intake Total 700 Output Total 400 350 Balance -400 350 Weight 77.111 kg Intake: Intake, IV Titration 100 Amount Meropenem 1 gm In Sodium 100 Chloride 0.9% 100 ml @ 33 .3 mls/hr IVPB Q12HR@0000 ,1200 [facility] Rx#:[id number] Oral 600 Output: Urine 400 350 Other: Voiding Method Indwelling Catheter Indwelling Catheter Indwelling Catheter # Bowel Movements 1 1 1 - Exam Patient is awake, comfortable, no acute distress Alert oriented 3 Examination of the heart S1 and S2 Examination of the lungs bilateral breath sounds are heard Abdomen is soft nontender Examination lower extremities shows left leg with 1+ edema, right leg is in brace - Labs CBC & Chem 7: 08/09/23 06:20 08/09/23 06:20 Labs: Abnormal Lab Results - Last 24 Hours (Table) 08/09/23 08/09/23 Range/Units 06:20 06:20 WBC 14.70 H (4.50-10.00) X 10*3/uL RBC 2.11 L (4.10-5.20) X 10*6/uL Hgb 6.5 H* (12.0-15.0) d/dL Hct 23.1 L (37.2-46.3) % MCV 109.5 H (80.0-97.0) FL MCHC 28.1 L (32.0-37.0) d/dL RDW 16.1 H (11.5-14.5) % Lymphocytes # (Manual) 0.74 L (0.90-5.00) X 10*3/uL Eosinophils # (Manual) 0 L (0.04-0.35) X 10*3/uL Hypochromasia (manual) 2+ A Macrocytosis (manual) 2+ A Carbon Dioxide 20.9 L (21.6-31.8) mmol/L Anion Gap 13.10 H (4.00-12.00) mmol/L BUN 68.6 H (9.0-27.0) mg/dL Creatinine 2.5 H (0.6-1.5) mg/dL Est GFR (CKD-EPI) 19 L (>=60) BUN/Creatinine Ratio 27.44 H (12.00-20.00) Ratio Calcium 8.4 L (8.7-10.3) mg/dL Total Bilirubin <0.2 L (0.3-1.2) mg/dL Total Protein 5.1 L (6.2-8.2) d/dL Albumin 2.3 L (3.8-4.9) d/dL Albumin/Globulin Ratio 0.82 L (1.60-3.17) Ratio Microbiology - Last 24 Hours (Table) 08/02/23 16:00 Anaerobic Culture - Final Heel - Left 08/02/23 16:00 Gram Stain - Final Foot - Right Wound Culture - Final Pseudomonas aeruginosa Proteus mirabilis Enterococcus faecalis Assessment and Plan Assessment: 1. Acute kidney injury secondary to ATN secondary to severe sepsis and rhabdomyolysis. Patient required hemodialysis but now has been off hemodialysis for more than 2 weeks . Baseline creatinine prior to acute kidney injury [facility] was near 0.8. Creatinine this admission has been in the range of 2.6-3.2 - 2.42 today. Establish new baseline renal function. Nonoliguric. Ultrasound from 06/11/2023 showed no hydronephrosis. 2. Staph aureus bacteremia status post removal of groin dialysis catheter. On antibiotics. Catheter tip culture positive for staph aureus. 3. Hyperphosphatemia secondary to acute kidney injury maintained on Renvela. Phosphorus level 4.9. 4. Anemia. Possibly component of chronic kidney disease. On Aranesp. Hemoglobin 6.5 today. Receiving packed RBCs transfusion. 5. Volume overload. Status post diuresis this admission. 6. Metabolic acidosis secondary to acute kidney injury maintained on oral bicarb. 7. Chronic diastolic CHF with mild to moderate mitral regurgitation. 8. Hypokalemia from poor intake and diuresis. Replaced. Improved. Plan: Continue to hold dialysis. Continue diuretics Continue antibiotics as per ID Continue to avoid nephrotoxic medications. Continue midodrine
--- NOTE | 2023-08-09 13:20 | P.PN ---
Subjective Progress Note Date: 08/08/23 Principal diagnosis: MSSA bacteremia Patient is a 82-year-old female with a past medical history significant for hypertension hyperlipidemia history of chronic lower extremity venous stasis ulcer with recent admission to the hospital have E. coli bacteremia patient did develop ATN requiring hemodialysis patient was subsequently stabilized and [facility] , patient did have improvement her kidney function and did not require any further dialysis however the patient continued to have right groin dialysis catheter no presenting to the hospital with weakness tachycardia and did have a positive blood culture with MSSA. Patient did have a mole of the right groin dialysis catheter by vascular surgery on 07/28/2023, patient did have deployment of bilateral heel wound by Dr. Miranda on 08/02/2023 On today's evaluation that is 08/08/2023, the patient denies any fever or any chills, the patient is breathing comfortably on room air and no need for supplemental oxygen, patient denies abdominal pain and no nausea/vomiting /di arrhea,the patient denies chest pain or cough, no new symptoms the patient denies pain to bilateral heel area Patient did have white count is slightly up to 15.3, creatinine is 2.17, catheter tip positive blood culture repeated on 07/28/2023 also positive, blood culture from 08/01/2023 so far negative cultures obtained from heel wound were obtained from the micro-lab after multiple calls did grew drug-resistant Pseudomonas Proteus and enterococcus faecalis Objective - Vital Signs Vital signs: Vital Signs Temp 97.8 F 08/08/23 07:00 Pulse 65 08/08/23 07:00 Resp 18 08/08/23 07:00 BP 93/57 08/08/23 07:00 Pulse Ox 95 08/08/23 07:00 FiO2 Intake & Output 08/07/23 08/08/23 08/08/23 18:59 06:59 18:59 Output Total 600 600 Balance -600 -600 Output: Urine 600 600 Other: Voiding Method Indwelling Catheter Indwelling Catheter # Bowel Movements 3 1 - Exam GENERAL DESCRIPTION: An elderly female lying in bed in no distress RESPIRATORY SYSTEM: Unlabored breathing , decreased breath sounds at bases HEART: S1 S2 regular rate and rhythm , ABDOMEN: Soft , no tenderness EXTREMITIES: Bilateral heels wounds are currently dressed - Labs CBC & Chem 7: 08/09/23 06:20 08/09/23 06:20 Labs: Microbiology - Last 24 Hours (Table) 08/02/23 16:00 Anaerobic Culture - Final Heel - Left 08/02/23 16:00 Gram Stain - Final Foot - Right Wound Culture - Final Pseudomonas aeruginosa Proteus mirabilis Enterococcus faecalis Assessment and Plan (1) Cellulitis Current Visit: Yes Status: Acute Code(s): L03.90 - CELLULITIS, UNSPECIFIED SNOMED Code(s): 842865771 (2) Leukocytosis Current Visit: Yes Status: Acute Code(s): D72.829 - ELEVATED WHITE BLOOD CELL COUNT, UNSPECIFIED SNOMED Code(s): 847001381 (3) Stage II pressure ulcer of left buttock Current Visit: Yes Status: Acute Code(s): L89.322 - PRESSURE ULCER OF LEFT BUTTOCK, STAGE 2 SNOMED Code(s): 96461620624992 (4) Stage II pressure ulcer of left heel Current Visit: Yes Status: Acute Code(s): L89.622 - PRESSURE ULCER OF LEFT HEEL, STAGE 2 SNOMED Code(s): 66869475120151 (5) Stage II pressure ulcer of right buttock Current Visit: Yes Status: Acute Code(s): L89.312 - PRESSURE ULCER OF RIGHT BUTTOCK, STAGE 2 SNOMED Code(s): 72631727758018 (6) MSSA bacteremia Current Visit: Yes Status: Acute Code(s): R78.81 - BACTEREMIA; B95.61 - METHICILLIN SUSCEP STAPH INFCT CAUSING DIS CLASSD ELSWHR SNOMED Code(s): 850664837 Plan: 1patient presented to hospital with tachycardia patient did have a low-grade fever and elevated white count and MSSA bacteremia source is likely dialysis catheter infection which has been discontinued 2-right lower extremity wound care with a dry Aquacel dressing and Daniel wrap for compression 3-we will apply zinc to the excoriated skin to the bilateral gluteal and sacral area keep the area of the pressure 4 blood culture repeated on 07/28/2023 positive however blood cultures on has been negative, we will continue the patient on daptomycin to finish treatment for her bacteremia 5- patient also have bilateral heel infected wound, status post debridement of bilateral heel wounds and those cultures are growing drug-resistant Pseudomonas Enterococcus faecalis and Proteus we will continue the patient on meropenem and get a PICC line once cleared by nephrology for outpatient IV antibiotics Dictation was produced using [employer] dictation software. please excuse any gra mmatical, word or spelling errors. Time with Patient: Less than 30
--- NOTE | 2023-08-09 13:24 | P.PN ---
Subjective Progress Note Date: 08/09/23 Principal diagnosis: MSSA bacteremia Patient is a 82-year-old female with a past medical history significant for hypertension hyperlipidemia history of chronic lower extremity venous stasis ulcer with recent admission to the hospital have E. coli bacteremia patient did develop ATN requiring hemodialysis patient was subsequently stabilized and [facility] , patient did have improvement her kidney function and did not require any further dialysis however the patient continued to have right groin dialysis catheter no presenting to the hospital with weakness tachycardia and did have a positive blood culture with MSSA. Patient did have a mole of the right groin dialysis catheter by vascular surgery on 07/28/2023, patient did have deployment of bilateral heel wound by Dr. Miranda on 08/02/2023 with a repeat debridement on 08/08/2023 On today's evaluation that is 08/09/2023, the patient remains to be afebrile the patient is breathing comfortably on room air, the patient denies having any chest pain shortness of breath or cough, patient denies abdominal pain and no nausea/vomiting /diarrhea, the patient denies pain to bilateral heel area Patient did have white count is slightly down to 14.70, creatinine is 2.5, cat heter tip positive blood culture repeated on 07/28/2023 also positive, blood culture from 08/01/2023 so far negative cultures obtained from heel wound were obtained from the micro-lab after multiple calls did grew drug-resistant Pseudomonas Proteus and enterococcus faecalis Objective - Vital Signs Vital signs: Vital Signs Temp 98.1 F 08/09/23 12:03 Pulse 72 08/09/23 12:03 Resp 17 08/09/23 12:03 BP 92/59 08/09/23 12:03 Pulse Ox 96 08/09/23 12:03 FiO2 Intake & Output 08/08/23 08/09/23 08/09/23 18:59 06:59 18:59 Intake Total 700 Output Total 400 350 Balance -400 350 Weight 77.111 kg Intake: Intake, IV Titration 100 Amount Meropenem 1 gm In Sodium 100 Chloride 0.9% 100 ml @ 33 .3 mls/hr IVPB Q12HR@0000 ,1200 LOIDA Rx#:[id number] Oral 600 Output: Urine 400 350 Other: Voiding Method Indwelling Catheter Indwelling Catheter Indwelling Catheter # Bowel Movements 1 1 1 - Exam GENERAL DESCRIPTION: An elderly female lying in bed in no distress RESPIRATORY SYSTEM: Unlabored breathing , decreased breath sounds at bases HEART: S1 S2 regular rate and rhythm , ABDOMEN: Soft , no tenderness EXTREMITIES: Bilateral heel wounds right greater than the left - Labs CBC & Chem 7: 08/09/23 06:20 08/09/23 06:20 Labs: Abnormal Lab Results - Last 24 Hours (Table) 08/09/23 08/09/23 Range/Units 06:20 06:20 WBC 14.70 H (4.50-10.00) X 10*3/uL RBC 2.11 L (4.10-5.20) X 10*6/uL Hgb 6.5 H* (12.0-15.0) d/dL Hct 23.1 L (37.2-46.3) % MCV 109.5 H (80.0-97.0) FL MCHC 28.1 L (32.0-37.0) d/dL RDW 16.1 H (11.5-14.5) % Lymphocytes # (Manual) 0.74 L (0.90-5.00) X 10*3/uL Eosinophils # (Manual) 0 L (0.04-0.35) X 10*3/uL Hypochromasia (manual) 2+ A Macrocytosis (manual) 2+ A Carbon Dioxide 20.9 L (21.6-31.8) mmol/L Anion Gap 13.10 H (4.00-12.00) mmol/L BUN 68.6 H (9.0-27.0) mg/dL Creatinine 2.5 H (0.6-1.5) mg/dL Est GFR (CKD-EPI) 19 L (>=60) BUN/Creatinine Ratio 27.44 H (12.00-20.00) Ratio Calcium 8.4 L (8.7-10.3) mg/dL Total Bilirubin <0.2 L (0.3-1.2) mg/dL Total Protein 5.1 L (6.2-8.2) d/dL Albumin 2.3 L (3.8-4.9) d/dL Albumin/Globulin Ratio 0.82 L (1.60-3.17) Ratio Assessment and Plan (1) Cellulitis Current Visit: Yes Status: Acute Code(s): L03.90 - CELLULITIS, UNSPECIFIED SNOMED Code(s): 761100693 (2) Leukocytosis Current Visit: Yes Status: Acute Code(s): D72.829 - ELEVATED WHITE BLOOD CELL COUNT, UNSPECIFIED SNOMED Code(s): 641188866 (3) Stage II pressure ulcer of left buttock Current Visit: Yes Status: Acute Code(s): L89.322 - PRESSURE ULCER OF LEFT BUTTOCK, STAGE 2 SNOMED Code(s): 87572746716113 (4) Stage II pressure ulcer of left heel Current Visit: Yes Status: Acute Code(s): L89.622 - PRESSURE ULCER OF LEFT HEEL, STAGE 2 SNOMED Code(s): 37829101178447 (5) Stage II pressure ulcer of right buttock Current Visit: Yes Status: Acute Code(s): L89.312 - PRESSURE ULCER OF RIGHT BUTTOCK, STAGE 2 SNOMED Code(s): 56217824019885 (6) MSSA bacteremia Current Visit: Yes Status: Acute Code(s): R78.81 - BACTEREMIA; B95.61 - M ETHICILLIN SUSCEP STAPH INFCT CAUSING DIS CLASSD ELSWHR SNOMED Code(s): 4 94608978 Plan: 1patient presented to hospital with tachycardia patient did have a low-grade fever and elevated white count and MSSA bacteremia source is likely dialysis catheter infection which has been discontinued 2-right lower extremity wound care with a dry Aquacel dressing and Daniel wrap for compression 3-we will apply zinc to the excoriated skin to the bilateral gluteal and sacral area keep the area of the pressure 4 blood culture repeated on 07/28/2023 positive however blood cultures on 08/01/2023 has been negative, we will continue the patient on daptomycin to finish treatment for her bacteremia, with the last dose of daptomycin will be 08/15/2023 5- patient also have bilateral heel infected wound, status post debridement of bilateral heel wounds and those cultures are growing drug-resistant Pseudomonas Enterococcus faecalis and Proteus , per discussion with the surgeon at the time of debridement the wound was tracking all the way down to the bone to the right heel, concerning for deep infection and osteomyelitis patient will get a PICC line already get cleared with the nephrology and plan is for 6week course of meropenem Dictation was produced using [employer] software. please excuse any grammatical, word or spelling errors. Time with Patient: Less than 30
--- NOTE | 2023-08-09 16:30 | P.GSCN ---
History of Present Illness Consult date: 08/09/23 History of present illness: CHIEF COMPLAINT: Atrial flutter with RVR and rash HISTORY OF PRESENT ILLNESS: This is a 82-year-old female who presented to the hospital with complaints of a rash and evidence of atrial flutter with RVR. She was admitted to the hospital on 07/27/2023. Patient has multiple medical issues including leg wounds, cellulitis and bacteremia. She also has possible chronic kidney disease has been receiving Aranesp. Patient's leg wounds did require to be treated with silver nitrate due to the extensive bleeding. Patient does have a hemoglobin of 6.5 today and receiving a unit of blood. Hemoglobin on admission was 10.2. Patient has never had EGD. Last colonoscopy was in 2017 showing diverticulosis. She denies abdominal pain. Denies any nausea or vomiting. She has been having loose stools. No blood in the stools per nursing staff. Patient denies any nausea or vomiting. She is currently only on DVT prophylaxis Lovenox. IV heparin has been stopped since 07/28/2023. Surgical service consulted for possible GI bleed. Patient has been mildly hypotensive. PAST MEDICAL HISTORY: GERD/Reflux, Hyperlipidemia, Hypertension, Osteoarthritis (OA), Renal Disease, Skin Disorder, chronic low back/cervical and bilateral shoulder pain, benign colon polyps/diverticular disease, bilateral lower extremity cellulitis but R leg much more often, UTIs, polynephritis, hiatal hernia many years PAST SURGICAL HISTORY: Appendectomy, Cholecystectomy, Joint Replacement, Orthopedic Surgery, Tubal Ligation,Bilateral total knee arthroplasties, pain clinic procedures, colonoscopies/benign polypectomies, bilateral cataract removals/lens implants, MEDICATIONS: See below ALLERGIES: See below SOCIAL HISTORY: No illicit drug use. REVIEW OF SYSTEMS: CONSTITUTIONAL: Denies fever or chills. HEENT: Denies blurred vision, vision changes, or eye pain. Denies hemoptysis CARDIOVASCULAR: Denies chest pain or pressure. RESPIRATORY: No shortness of breath. GASTROINTESTINAL: See HPI for pertinent findings HEMATOLOGIC: Denies bleeding disorders. GENITOURINARY: Denies any blood in urine or increased urinary frequency. SKIN: Denies pruitis. Denies rash. PHYSICAL EXAM: VITAL SIGNS: Reviewed GENERAL: Well-developed in no acute distress. HEENT: No sclera icterus. Extraocular movements grossly intact. Moist buccal mucosa. Head is atraumatic, normocephalic. No nasal drainage. ABDOMEN: Soft. Obese. Nondistended. Nontender NEUROLOGIC: Alert and oriented. Cranial nerves II through XII grossly intact. LABORATORY DATA: WBC 14.7 hgb 6.5 plt 321 Na 141 K 4.8 cr 2.5 IMAGING: ASSESSMENT: 1. Anemia requiring blood transfusion. Need to rule out GI bleed 2. History of diverticulosis PLAN: -Patient scheduled for EGD and colonoscopy on with Dr. Bhatia -Continue to monitor hemoglobin -Continue to monitor for any signs or symptoms of bleeding -Discontinue Lovenox -Continue Protonix -Stool for occult blood pending Physician Orthopedic Nurse note has been reviewed by physician. Signing provider agrees with the documented findings, assessment, and plan of care. Past Medical History Past Medical History: GERD/Reflux, Hyperlipidemia, Hypertension, Osteoarthritis (OA), Renal Disease, Skin Disorder Additional Past Medical History / Comment(s): chronic low back/cervical and bilateral shoulder pain, benign colon polyps/diverticular disease, bilateral lower extremity cellulitis but R leg much more often, UTIs, polynephritis, hiatal hernia many years ago.dialysis History of Any Multi-Drug Resistant Organisms: None Reported Past Surgical History: Appendectomy, Cholecystectomy, Joint Replacement, Ort hopedic Surgery, Tubal Ligation Additional Past Surgical History / Comment(s): Bilateral total knee arthroplasties, pain clinic procedures, colonoscopies/benign polypectomies, bilateral cataract removals/lens implants, PICC line. Past Anesthesia/Blood Transfusion Reactions: No Reported Reaction Past Psychological History: No Psychological Hx Reported Additional Psychological History / Comment(s): Pt resides at [facility]. She has not been ambulating. Smoking Status: Never smoker Past Alcohol Use History: None Reported, Rare Past Drug Use History: None Reported - Past Family History Mother Family Medical History: Cancer Additional Family Medical History / Comment(s): BREAST CANCER. at 28 years old Father Family Medical History: Cancer Additional Family Medical History / Comment(s): LIVER CANCER/HEART PROBLEMS. Son(s) Family Medical History: Cancer Additional Family Medical History / Comment(s): MULTIPLE MYELOMA/bone cancer- PASSED 2015. Medications and Allergies Home Medications Medication Instructions Recorded Confirmed Type Montelukast [Singulair] 10 mg PO HS@199908/18/19 07/27/23 History Ergocalciferol (Vitamin D2) 1,250 mcg PO THAPA 04/18/23 07/27/23 History [Drisdol (50,000 Iu)] Torsemide [Demadex] 40 mg PO DAILY tab 06/24/23 07/27/23 Rx Acetaminophen [Tylenol] 650 mg PO Q6H PRN 06/28/23 07/27/23 History Cholestyramine (with Sugar) 4 gm PO BID@08,199906/28/23 07/27/23 History [Questran Packet] HYDROcodone/APAP 7.5-325MG [[place] 1 tab PO Q6H PRN 06/28/23 07/27/23 History 7.5-325] Ascorbic Acid [Vitamin C] 1,000 mg PO DAILY@79907/27/23 07/27/23 History FLUoxetine HCL [PROzac] 20 mg PO DAILY@79907/27/23 07/27/23 History Hydrocortisone Cream 1 applic TOPICAL Q8H PRN 07/27/23 07/27/23 History [Hydrocortisone 2.5% Cream] Loperamide [Imodium] 2 mg PO Q4H PRN MDD 16 caps 07/27/23 07/27/23 History Sevelamer [Renvela] 800 mg PO BID@1230,1730 07/27/23 07/27/23 History Allergies Allergy/AdvReac Type Severity Reaction Status Date / Time adhesive tape Allergy Unknown Rash/Hives Verified 07/27/23 07:22 Sulfa (Sulfonamide Allergy Rash/Hives Verified 07/27/23 07:22 Antibiotics) Surgical - Exam Vital Signs Temp Pulse Resp BP Pulse Ox 98.6 F 142 H 19 138/78 93 L 07/26/23 23:25 07/26/23 23:25 07/26/23 23:25 07/26/23 23:25 07/26/23 23:25 Results - Labs 08/09/23 06:20 08/09/23 06:20 Abnormal Lab Results - Last 24 Hours (Table) 08/09/23 08/09/23 08/09/23 Range/Units 06:20 06:20 12:20 WBC 14.70 H (4.50-10.00) X 10*3/uL RBC 2.11 L (4.10-5.20) X 10*6/uL Hgb 6.5 H* (12.0-15.0) d/dL Hct 23.1 L (37.2-46.3) % MCV 109.5 H (80.0-97.0) FL MCHC 28.1 L (32.0-37.0) d/dL RDW 16.1 H (11.5-14.5) % Lymphocytes # (Manual) 0.74 L (0.90-5.00) X 10*3/uL Eosinophils # (Manual) 0 L (0.04-0.35) X 10*3/uL Hypochromasia (manual) 2+ A Macrocytosis (manual) 2+ A Carbon Dioxide 20.9 L (21.6-31.8) mmol/L Anion Gap 13.10 H (4.00-12.00) mmol/L BUN 68.6 H (9.0-27.0) mg/dL Creatinine 2.5 H (0.6-1.5) mg/dL Est GFR (CKD-EPI) 19 L (>=60) BUN/Creatinine Ratio 27.44 H (12.00-20.00) Ratio Calcium 8.4 L (8.7-10.3) mg/dL Total Bilirubin <0.2 L (0.3-1.2) mg/dL Total Protein 5.1 L (6.2-8.2) d/dL Albumin 2.3 L (3.8-4.9) d/dL Albumin/Globulin Ratio 0.82 L (1.60-3.17) Ratio Crossmatch See Detail Diabetes panel 08/09/23 Range/Units 06:20 Sodium 141 (135-145) mmol/L Potassium 4.8 (3.5-5.5) mmol/L Chloride 107 (96-109) mmol/L Carbon Dioxide 20.9 L (21.6-31.8) mmol/L BUN 68.6 H (9.0-27.0) mg/dL Creatinine 2.5 H (0.6-1.5) mg/dL Glucose 89 (70-110) mg/dL Calcium 8.4 L (8.7-10.3) mg/dL AST 20 (13-35) U/L ALT 11 (8-44) U/L Alkaline Phosphatase 64 (41-126) U/L Total Protein 5.1 L (6.2-8.2) d/dL Albumin 2.3 L (3.8-4.9) d/dL Calcium panel 08/09/23 Range/Units 06:20 Calcium 8.4 L (8.7-10.3) mg/dL Albumin 2.3 L (3.8-4.9) d/dL Pituitary panel 08/09/23 Range/Units 06:20 Sodium 141 (135-145) mmol/L Potassium 4.8 (3.5-5.5) mmol/L Chloride 107 (96-109) mmol/L Carbon Dioxide 20.9 L (21.6-31.8) mmol/L BUN 68.6 H (9.0-27.0) mg/dL Creatinine 2.5 H (0.6-1.5) mg/dL Glucose 89 (70-110) mg/dL Calcium 8.4 L (8.7-10.3) mg/dL Adrenal panel 08/09/23 Range/Units 06:20 Sodium 141 (135-145) mmol/L Potassium 4.8 (3.5-5.5) mmol/L Chloride 107 (96-109) mmol/L Carbon Dioxide 20.9 L (21.6-31.8) mmol/L BUN 68.6 H (9.0-27.0) mg/dL Creatinine 2.5 H (0.6-1.5) mg/dL Glucose 89 (70-110) mg/dL Calcium 8.4 L (8.7-10.3) mg/dL Total Bilirubin <0.2 L (0.3-1.2) mg/dL AST 20 (13-35) U/L ALT 11 (8-44) U/L Alkaline Phosphatase 64 (41-126) U/L Total Protein 5.1 L (6.2-8.2) d/dL Albumin 2.3 L (3.8-4.9) d/dL
[2023-08-09] MEDS: MONTELUKAST 10 MG TAB PO SCH (21:03)
[2023-08-10] MEDS: MEROPENEM 1 GM in SODIUM CHLORIDE 0.9% 100 ML IVPB SCH ×3 (01:24→23:40)
[2023-08-10] MEDS: HYDROmorphone 0.5 MG/0.5 ML SYRINGE IVP PRN ×5 (01:28→23:44)
[2023-08-10] MEDS ORDERED: LACTULOSE 20 GM/30 ML CUP PO ONE (07:57)
[2023-08-10] MEDS ORDERED: PEG 3350 (236 GM/BTL) + LYTES 4,000 ML BOTTLE PO ONE (08:00)
[2023-08-10] MEDS: CHOLESTYRAMINE (WITH SUGAR) 4 GM PACKET PO SCH ×2 (09:08→21:56)
[2023-08-10] MEDS ORDERED: LIDOCAINE 1% INJ 10MG/ML (5 ML VIAL-PF) SQ ONE (09:13)
[2023-08-10] MEDS: SODIUM BICARBONATE TAB 650 MG TAB PO SCH ×2 (09:45→21:56)
[2023-08-10] MEDS: NYSTATIN 100,000 UNIT/ML SUSP 500,000 UNIT/5 ML CUP PO SCH ×4 (09:45→21:56)
[2023-08-10] MEDS: METOPROLOL TARTRATE 50 MG TAB PO SCH ×2 (09:45→21:56)
[2023-08-10] MEDS: PANTOPRAZOLE 40 MG TABLET PO SCH (09:45)
[2023-08-10] MEDS: MIDODRINE 5 MG TAB PO SCH ×3 (09:45→17:12)
[2023-08-10] MEDS: ASCORBIC ACID 500 MG TAB PO SCH (09:45)
[2023-08-10] MEDS: PRAVASTATIN SODIUM 20 MG TAB PO SCH (09:46)
[2023-08-10] MEDS: FLUoxetine HCL 20 MG CAP PO SCH (09:46)
[2023-08-10] MEDS: TORSEMIDE 20 MG TAB PO SCH (09:46)
[2023-08-10] MEDS: HYDROcodone/APAP 7.5-325MG 1 EACH TAB PO PRN (09:48)
[2023-08-10] MEDS: HYDROPHILIC CREAM 180 GM TUBE TOPICAL SCH (09:50)
--- NOTE | 2023-08-10 10:45 | IR ---
PICC LINE PLACEMENT: HISTORY: Infection requiring long-term antibiotic therapy PROCEDURE: Ultrasound and fluoroscopic guidance of PICC line placement. COMPLICATIONS: None ANESTHESIA: 1. 1% Lidocaine locally. FINDINGS/TECHNIQUE: The procedure was explained to the patient. The risks, complications, benefits and alternatives were discussed and any questions were answered. Informed consent was obtained. The patient was placed supine on the fluoroscopic table and prepped and draped in the usual sterile fash ion. Utilizing a 21 gauge needle and sonographic and fluoroscopic guidance, access in the right bas ilic vein was achieved and there is placement of a 0.018 guidewire. The vein is patent. A 4-F sheat h was placed over the guidewire. The guidewire and dilator were removed and a 4-F. PICC line was deborah georgi through the sheath with the tip at the level of the SVC. The sheath was removed, the catheter wa s flushed and sutured into position. The patient was stable throughout the procedure and remained st able upon discharge from the Department of Radiology. The vein puncture was patent under ultrasound. A shi scale image was obtained to document patency of the vein punctured. All elements of the maximal barrier technique were utilized. FLUOROSCOPY TIME: DAP 3.58Gy cm2 IMPRESSION: Successful PICC line placement under ultrasound and fluoroscopic guidance.
[2023-08-10 11:30] LABS: ALT 11 U/L (8-44); AST 27 U/L (13-35); Albumin 2.3 d/dL (3.8-4.9); Albumin/Globulin Ratio 0.85 Ratio (1.60-3.17); Alkaline Phosphatase 61 U/L (41-126); Blood Urea Nitrogen 67.1 mg/dL (9.0-27.0); Calcium 8.2 mg/dL (8.7-10.3); Carbon Dioxide 21.9 mmol/L (21.6-31.8); Chloride 104 mmol/L (96-109); Globulin 2.7 d/dL (1.6-3.3); Glucose 83 mg/dL (70-110); Potassium 5.1 mmol/L (3.5-5.5); Sodium 141 mmol/L (135-145); Total Bilirubin <0.2 mg/dL (0.3-1.2)
[2023-08-10 12:10] LABS: HCT 23.8 % (37.2-46.3); HGB 7.1 d/dL (12.0-15.0); MCH 30.7 pg (27.0-32.0); MCHC 29.8 d/dL (32.0-37.0); Mean Platelet Volume 9.8 FL (9.5-12.2); NRBC Per 100 WBC 0.03 X 10*3/uL (0.00-0.01); Platelet Count 295 X 10*3/uL (140-440); RBC 2.31 X 10*6/uL (4.10-5.20); RDW 18.5 % (11.5-14.5); WBC 12.02 X 10*3/uL (4.50-10.00)
[2023-08-10 12:19] LABS: Basophils # (M) 0.12 X 10*3/uL (0.00-0.10); Eosinophils # (M) 0.48 X 10*3/uL (0.04-0.35); Hypochromasia (M) 2+; Lymphocytes # (M) 0.96 X 10*3/uL (0.90-5.00); Metamyelocytes % 4 % (0-0); Monocytes # (M) 0.96 X 10*3/uL (0.20-1.00); Myelocytes % 2 % (0-0); Neutrophils # (M) 8.77 X 10*3/uL (1.80-7.70); Neutrophils % (M) 73 %; Stomatocytes 2+
[2023-08-10] MEDS: SEVELAMER 800 MG TAB PO SCH ×2 (12:23→17:12)
[2023-08-10 12:27] LABS: Erythrocyte Sedimentation Rate 57 mm/Hr (0-30)
--- NOTE | 2023-08-10 12:31 | P.PN ---
Subjective Progress Note Date: 08/10/23 Principal diagnosis: MSSA bacteremia Patient is a 82-year-old female with a past medical history significant for hypertension hyperlipidemia history of chronic lower extremity venous stasis ulcer with recent admission to the hospital have E. coli bacteremia patient did develop ATN requiring hemodialysis patient was subsequently stabilized and transferred to local [facility] for [facility] , patient did have improvement her kidney function and did not require any further dialysis however the patient continued to have right groin dialysis catheter no presenting to the hospital with weakness tachycardia and did have a positive blood culture with MSSA. Patient did have a mole of the right groin dialysis catheter by vascular surgery on 07/28/2023, patient did have deployment of bilateral heel wound by Dr. Miranda on 08/02/2023 with a repeat debridement on 08/08/2023 On today's evaluation that is 08/10/2023, the patient denies any fever or any chills, the patient is breathing comfortably on room air and no need for supplemental oxygen, the patient denies chest pain or cough, patient denies nausea/vomiting and no diarrhea has been reported, the patient denies pain to bilateral lower extremity Patient did have white count is slightly down to 12.02, creatinine is 2.2, catheter tip positive blood culture repeated on 07/28/2023 also positive, blood culture from 08/01/2023 so far negative cultures obtained from heel wound were obtained from the micro-lab after multiple calls did grew drug-resistant Pseudomonas Proteus and enterococcus faecalis Objective - Vital Signs Vital signs: Vital Signs Temp 98.7 F 08/10/23 03:07 Pulse 71 08/10/23 03:07 Resp 18 08/10/23 03:07 BP 108/65 08/10/23 03:07 Pulse Ox 97 08/10/23 03:07 FiO2 Intake & Output 08/09/23 08/10/23 08/10/23 18:59 06:59 18:59 Intake Total 310 Output Total 900 Balance 310 -900 Weight 77.111 kg Intake: Blood Product 310 Rc As-1 Unit 310 [id number] Output: Urine 900 Other: Voiding Method Indwelling Catheter Indwelling Catheter # Bowel Movements 1 - Exam GENERAL DESCRIPTION: An elderly female lying in bed in no distress RESPIRATORY SYSTEM: Unlabored breathing , decreased breath sounds at bases HEART: S1 S2 regular rate and rhythm , ABDOMEN: Soft , no tenderness EXTREMITIES: Bilateral heel wounds right greater than the left - Labs CBC & Chem 7: 08/10/23 06:40 08/10/23 06:40 Labs: Abnormal Lab Results - Last 24 Hours (Table) 08/09/23 08/09/23 08/09/23 Range/Units 06:20 06:20 12:20 WBC 14.70 H (4.50-10.00) X 10*3/uL RBC 2.11 L (4.10-5.20) X 10*6/uL Hgb 6.5 H* (12.0-15.0) d/dL Hct 23.1 L (37.2-46.3) % MCV 109.5 H (80.0-97.0) FL MCHC 28.1 L (32.0-37.0) d/dL RDW 16.1 H (11.5-14.5) % Lymphocytes # (Manual) 0.74 L (0.90-5.00) X 10*3/uL Eosinophils # (Manual) 0 L (0.04-0.35) X 10*3/uL Hypochromasia (manual) 2+ A Macrocytosis (manual) 2+ A Carbon Dioxide 20.9 L (21.6-31.8) mmol/L Anion Gap 13.10 H (4.00-12.00) mmol/L BUN 68.6 H (9.0-27.0) mg/dL Creatinine 2.5 H (0.6-1.5) mg/dL Est GFR (CKD-EPI) 19 L (>=60) BUN/Creatinine Ratio 27.44 H (12.00-20.00) Ratio Calcium 8.4 L (8.7-10.3) mg/dL Total Bilirubin <0.2 L (0.3-1.2) mg/dL Total Protein 5.1 L (6.2-8.2) d/dL Albumin 2.3 L (3.8-4.9) d/dL Albumin/Globulin Ratio 0.82 L (1.60-3.17) Ratio Crossmatch See Detail Assessment and Plan (1) Cellulitis Current Visit: Yes Status: Acute Code(s): L03.90 - CELLULITIS, UNSPECIFIED SNOMED Code(s): 344052525 (2) Leukocytosis Current Visit: Yes Status: Acute Code(s): D72.829 - ELEVATED WHITE BLOOD CELL COUNT, UNSPECIFIED SNOMED Code(s): 585943635 (3) Stage II pressure ulcer of left buttock Current Visit: Yes Status: Acute Code(s): L89.322 - PRESSURE ULCER OF LEFT BUTTOCK, STAGE 2 SNOMED Code(s): 35554285076891 (4) Stage II pressure ulcer of left heel Current Visit: Yes Status: Acute Code(s): L89.622 - PRESSURE ULCER OF LEFT HEEL, STAGE 2 SNOMED Code(s): 80684005931441 (5) Stage II pressure ulcer of right buttock Current Visit: Yes Status: Acute Code(s): L89.312 - PRESSURE ULCER OF RIGHT BUTTOCK, STAGE 2 SNOMED Code(s): 36066853791349 (6) MSSA bacteremia Current Visit: Yes Status: Acute Code(s): R78.81 - BACTEREMIA; B95.61 - METHICILLIN SUSCEP STAPH INFCT CAUSING DIS CLASSD ELSWHR SNOMED Code(s): 028960035 Plan: 1patient presented to hospital with tachycardia patient did have a low-grade fever and elevated white count and MSSA bacteremia source is likely dialysis catheter infection which has been discontinued 2-right lower extremity wound care with a dry Aquacel dressing and Daniel wrap for compression 3-we will apply zinc to the excoriated skin to the bilateral gluteal and sacral area keep the area of the pressure 4 blood culture repeated on 07/28/2023 positive however blood cultures on 08/01/2023 has been negative, we will continue the patient on daptomycin to finish treatment for her bacteremia, with the last dose of daptomycin will be 08/15/2023 5- patient also have bilateral heel infected wound, status post debridement of bilateral heel wounds and those cultures are growing drug-resistant Pseudomonas Enterococcus faecalis and Proteus , per discussion with the surgeon at the time of debridement the wound was tracking all the way down to the bone to the right heel, concerning for deep infection and osteomyelitis patient did got a PICC line on 08/10/2023 plan is for 6week course of meropenem, currently undergoing GI workup for anemia Dictation was produced using [employer] software. please excuse any grammatical, word or spelling errors.
--- NOTE | 2023-08-10 13:38 | P.PN ---
Subjective Progress Note Date: 08/10/23 This is an 82-year-old female patient with an extensive medical history who presented to the ER with concerns of atrial flutter with RVR and rash. Patient remains with left femoral dialysis port. Concerns of possible ALLERGIC reaction due to antibiotics patient was given Benadryl and Solu-Medrol. Patient is a poor historian unable to recall recent events. Past medical history includes hyperlipidemia hypertension, end-stage renal disease requiring hemodialysis during previous hospitalization, osteoarthritis, GERD. Chest x-ray completed showing vascular congestion. EKG completed showing sinus tachycardia possible atrial flutter rate 144. White blood cell elevated 21.4, creatinine 2.63, bun 54. BNP 9640. Troponin 0.404, 0.7 696 and 1.360. Wound noted to left lower extremity. Patient was started on heparin for elevated troponins and Cardizem. Patient started on IV vancomycin. 2-D echo ordered. Unclear patient has been receiving hemodialysis. Attempting to obtain medical records. Cardiology, nephrology infectious disease and wound care service is consulted. Blood culture ordered. Repeat labs will be ordered. At this time patient is resting comfortably in bed. Current vital signs temp 98.5, heart rate 108, respiratory rate 20, blood pressure 131/72 with a pulse ox 93% on room air On 07/28/2023 patient was seen and examined on the medical floor she is alert and oriented 3 in no apparent distress, she is complaining of severe pain in the lower extremity especially at the time of dressing change, she is also complaining of fatigue and generalized weakness, otherwise she denies any complaints there is no fever or chills no headache or dizziness no chest pain no shortness of breath no cough no nausea or vomiting no abdominal pain no diarrhea no burning with urination no frequency or urgency and no hematuria. On 07/29/2023 patient is alert and oriented 3. Patient had hemodialysis cath removed with tip culture for source of infection. Blood cultures showing presumptive staph aureus. Infectious disease are following. Patient remains on IV antibiotic. White blood cell is trending down 18.8. Current vital signs temp 97.4, heart rate 87, respiratory rate 18, blood pressure 117/74 with a pulse ox 97% on room air On 07/30/2023 patient was seen and examined on the telemetry floor she is alert and oriented 3 in no apparent distress, she is complaining of generalized weakness, otherwise she denies any complaints, vital exam reveals a temperature of 98.4 pulse 71 respiration 14 blood pressure 115/67 pulse ox 95% on room air sodium 136 potassium 4.1 chloride 101 CO2 19 BUN 108 creatinine 2.59, patient is improving gradually, PT and OT consult, she remains on IV antibiotics, will follow closely On 07/31/2023 patient was seen and examined on the telemetry floor she is alert and oriented 3 in no apparent distress she is still complaining of weakness and complaining of low back pain otherwise she denies any complaints there is no fever or chills no headache or dizziness no chest pain no shortness of breath no cough no nausea or vomiting no abdominal pain no diarrhea and no urinary symptoms. Labs today are still pending, yesterday white blood count was still elevated at 20.7 BUN 108 creatinine 2.59 will continue with current antibiotics infectious disease are following On 08/01/2023 patient was seen and examined on the telemetry floor she is alert and oriented 3 in no apparent distress she is complaining of generalized weakness and low back pain, otherwise she denies any complaints there is no fever or chills no headache or dizziness no chest pain no shortness of breath no cough no nausea or vomiting no abdominal pain no diarrhea and no urinary symptoms. Today white blood count is 23.9 hemoglobin 8.5 platelet count 180 BUN 19 9 creatinine 3.2 On 08/02/2023 patient is alert and oriented 3 currently sitting up in bed eating breakfast. Repeat blood culture has been ordered per infectious disease due to continuing leukocytosis. Antibiotics adjusted to nafcillin per ID. Current vital signs temp 97.6, heart rate 77, respiratory rate 18, blood pressure 87/53 with pulse ox 96% on room. Patient denies chest pain or shortn ess breath. Patient denies nausea vomiting or diarrhea. Patient denies any urinary burning or frequency On 08/03/2023 patient is alert and oriented 3 currently resting in bed eating breakfast. Patient underwent debridement of right heel pressure ulcer with Dr. Miranda yesterday. White blood cell today slightly improved at 18.17. Creatinine 3.1 nephrology.\, infectious disease and wound care service is following. Patient denies chest pain or shortness of breath. Patient denies nausea vomiting or diarrhea. Patient denies any urinary burning or frequency On 08/04/2023 patient was seen and examined on the medical floor, she is alert and oriented 3 she is complaining of bilateral lower extremity pain especially at the time of dressing change and debridement of her wounds. White blood cell today slightly improved at 18.17. Creatinine 3.1 nephrology.\, infectious disease and wound care service is following. Patient denies chest pain or shortness of breath. Patient denies nausea vomiting or diarrhea. Patient denies any urinary burning or frequency On 08/05/2023 patient is alert and oriented 3. Patient remains on IV antibiotics. Current vital signs temp 97.5, heart rate 62, respiratory rate 16, blood pressure 93/62 with pulse ox 97% on room air. Lab work currently pending. Patient denies chest pain or shortness breath. Patient denies nausea vomiting or diarrhea. Patient denies any urinary burning or frequency. On 08/06/2023 patient was seen and examined on the medical floor she is alert and oriented 3 in no apparent distress, she is feeling better today she is sitting up and eating her meal there is no fever or chills no headache or dizziness no chest pain no shortness of breath no cough no nausea or vomiting no abdominal pain no diarrhea and no urinary symptoms. On 08/07/2023 patient was seen and examined on the medical floor is alert and oriented in no apparent distress she is still complaining of generalized weakness and complaining of pain in bilateral lower extremities otherwise she denies any complaints her vital exam reveals a temperature of 98.2 pulse 59 respiration 16 blood pressure 101/60 pulse ox 97% on room air her white blood count is 13.2 hemoglobin 7.7 platelet count 363 BUN 74 creatinine 2.42 On 08/08/2023 patient was seen and examined on the medical floor she is alert and oriented in no apparent distress she is still complaining of severe pain in the lower extremities especially at the time of debridement or dressing changes she is also complaining of generalized weakness otherwise she denies any complaints there is no fever or chills no chest pain or shortness of breath no cough , no nausea or vomiting no abdominal pain no diarrhea and no urinary symptoms On 08/09/2023 patient is alert and oriented 3. Patient reports improvement in his overall discomfort. Patient remains on IV daptomycin and meropenem. N ephrology infectious he services are following. Patient denies chest pain or shortness breath. Patient denies nausea vomiting or diarrhea. Patient denies any urinary frequency On 08/10/2023 patient's alert and oriented 3. Patient had PICC line placement today with plans of IV vancomycin and meropenem upon discharge to E[facility] facility. There were tentative plans for EGD and colonoscopy per surgical service but her family and patient it was decided to hold off on scopes at this point continue monitor hemoglobin and make a decision if needed. Hemoglobin today 7.1. White blood cell 12.02. Will order repeat labs for a.m. patient denies chest pain or shortness breath. Patient denies nausea vomiting or diarrhea. Patient denies any urinary burning or frequency Objective - Vital Signs Vital signs: Vital Signs Temp 98.6 F 08/10/23 12:24 Pulse 70 08/10/23 12:24 Resp 18 08/10/23 12:24 BP 100/64 08/10/23 12:24 Pulse Ox 97 08/10/23 12:24 FiO2 Intake & Output 08/09/23 08/10/23 08/10/23 18:59 06:59 18:59 Intake Total 310 Output Total 900 Balance 310 -900 Weight 77.111 kg Intake: Blood Product 310 Rc As-1 Unit 310 [id number] Output: Urine 900 Other: Voiding Method Indwelling Catheter Indwelling Catheter Indwelling Catheter # Bowel Movements 1 - Exam Head normocephalic Neck supple Lungs diminished bilaterally Heart regular rate and rhythm S1-S2, no rub or gallop Abdomen is soft nontender nondistended positive bowel sounds no hepatosplenomegaly Extremities multiple wounds to lower extremities Neuro alert and orientated to 3 - Labs CBC & Chem 7: 08/10/23 06:40 08/10/23 06:40 Labs: Abnormal Lab Results - Last 24 Hours (Table) 08/09/23 08/10/23 08/10/23 Range/Units 12:20 06:40 06:40 WBC 12.02 H (4.50-10.00) X 10*3/uL RBC 2.31 L (4.10-5.20) X 10*6/uL Hgb 7.1 L (12.0-15.0) d/dL Hct 23.8 L (37.2-46.3) % MCV 103.0 H (80.0-97.0) FL MCHC 29.8 L (32.0-37.0) d/dL RDW 18.5 H (11.5-14.5) % Eosinophils # (Manual) 0.48 H (0.04-0.35) X 10*3/uL Basophils # (Manual) 0.12 H (0.00-0.10) X 10*3/uL NRBC/100 WBC Diff 0.03 H (0.00-0.01) X 10*3/uL Hypochromasia (manual) 2+ A Stomatocytes 2+ A ESR 57 H (0-30) mm/Hr Anion Gap 15.10 H (4.00-12.00) mmol/L BUN 67.1 H (9.0-27.0) mg/dL Creatinine 2.2 H (0.6-1.5) mg/dL Est GFR (CKD-EPI) 22 L (>=60) BUN/Creatinine Ratio 30.50 H (12.00-20.00) Ratio Calcium 8.2 L (8.7-10.3) mg/dL Total Bilirubin <0.2 L (0.3-1.2) mg/dL C-Reactive Protein 7.10 H (0.00-0.80) mg/dL Total Protein 5.0 L (6.2-8.2) d/dL Albumin 2.3 L (3.8-4.9) d/dL Albumin/Globulin Ratio 0.85 L (1.60-3.17) Ratio Crossmatch See Detail Assessment and Plan Assessment: 1. Atrial flutter with RVR 2. Possible ALLERGIC reaction 3. Right lower Cellulitis with multiple wounds 4. Acute renal failure patient was started on hemodialysis during previous admission right femoral dialysis catheter in place. Unclear if patient is still receiving hemodialysis [facility] facility attempting to obtain medical records. Catheter removed and cultured 5. Elevated troponins 6. History of recent admission following fall with rhabdomyolysis 7. Recent urinary tract infection with E. coli bacteremia 8. Recent treatment for suspected C. diff 9. 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 Anemia requiring blood transfusion. Patient received 1 unit PRBCs on 08/09/2023 surgical services were consulted and recommended EGD and colonoscopy for further discussion with family it was determined that family patient would like to hold off on soaks at this time we'll continue to monitor DVT prophylaxis Lovenox. GI prophylaxis Protonix Cardiology, nephrology, infectious disease and wound care service is consulted Hemodialysis catheter removed and cultured. Status post wound debridement on 08/02/2023 Patient remains on IV antibiotics Repeat blood cultures ordered per ID on 08/01/2023 PICC line placement on 08/09/2023
--- NOTE | 2023-08-10 15:21 | P.PN ---
Subjective Progress Note Date: 08/10/23 CHIEF COMPLAINT: Anemia HISTORY OF PRESENT ILLNESS: Surgical service following her in regards to patient's anemia. She reports no blood in her stools. She denies any abdominal pain. Fecal occult blood is negative. Hemoglobin is up from 6.5-7.1 after blood transfusion. Patient has multiple leg wounds which had been bleeding and required silver nitrate to stop the bleeding. Patient does not want to proceed with EGD or colonoscopy at this time. Afebrile. Vitals are stable. PHYSICAL EXAM: VITAL SIGNS: Reviewed. GENERAL: Well-developed in no acute distress. ABDOMEN: Soft. Nondistended. Nontender. NEUROLOGIC: Alert and oriented. Cranial nerves II through XII grossly intact. ASSESSMENT: 1. Anemia requiring blood transfusion. Patient did have significant amount of bleeding from her leg wounds. 2. History of diverticulosis PLAN: -At this time we'll hold off on EGD and colonoscopy -Continue to monitor -Continue to monitor for any signs or symptoms of bleeding -Okay to resume heart healthy diet Physician [employer] note has been reviewed by physician. Signing provider agrees with the documented findings, assessment, and plan of care. Objective - Vital Signs Vital signs: Vital Signs Temp 98.6 F 08/10/23 12:24 Pulse 70 08/10/23 12:24 Resp 18 08/10/23 12:24 BP 100/64 08/10/23 12:24 Pulse Ox 97 08/10/23 12:24 FiO2 Intake & Output 08/09/23 08/10/23 08/10/23 18:59 06:59 18:59 Intake Total 310 Output Total 900 Balance 310 -900 Weight 77.111 kg Intake: Blood Product 310 Rc As-1 Unit 310 [id number] Output: Urine 900 Other: Voiding Method Indwelling Catheter Indwelling Catheter Indwelling Catheter # Bowel Movements 1 - Labs CBC & Chem 7: 08/10/23 06:40 08/10/23 06:40 Labs: Abnormal Lab Results - Last 24 Hours (Table) 08/09/23 08/10/23 08/10/23 Range/Units 12:20 06:40 06:40 WBC 12.02 H (4.50-10.00) X 10*3/uL RBC 2.31 L (4.10-5.20) X 10*6/uL Hgb 7.1 L (12.0-15.0) d/dL Hct 23.8 L (37.2-46.3) % MCV 103.0 H (80.0-97.0) FL MCHC 29.8 L (32.0-37.0) d/dL RDW 18.5 H (11.5-14.5) % Eosinophils # (Manual) 0.48 H (0.04-0.35) X 10*3/uL Basophils # (Manual) 0.12 H (0.00-0.10) X 10*3/uL NRBC/100 WBC Diff 0.03 H (0.00-0.01) X 10*3/uL Hypochromasia (manual) 2+ A Stomatocytes 2+ A ESR 57 H (0-30) mm/Hr Anion Gap 15.10 H (4.00-12.00) mmol/L BUN 67.1 H (9.0-27.0) mg/dL Creatinine 2.2 H (0.6-1.5) mg/dL Est GFR (CKD-EPI) 22 L (>=60) BUN/Creatinine Ratio 30.50 H (12.00-20.00) Ratio Calcium 8.2 L (8.7-10.3) mg/dL Total Bilirubin <0.2 L (0.3-1.2) mg/dL C-Reactive Protein 7.10 H (0.00-0.80) mg/dL Total Protein 5.0 L (6.2-8.2) d/dL Albumin 2.3 L (3.8-4.9) d/dL Albumin/Globulin Ratio 0.85 L (1.60-3.17) Ratio Crossmatch See Detail
[2023-08-10] MEDS: MONTELUKAST 10 MG TAB PO SCH (21:56)
[2023-08-11] MEDS: HYDROcodone/APAP 7.5-325MG 1 EACH TAB PO PRN ×2 (01:56→08:46)
[2023-08-11] MEDS: LOPERAMIDE 2 MG CAP PO PRN (01:57)
[2023-08-11 02:19] LABS: % Iron Saturation 25.95 (12.00-45.00)
[2023-08-11] MEDS: CHOLESTYRAMINE (WITH SUGAR) 4 GM PACKET PO SCH ×2 (08:45→20:07)
[2023-08-11] MEDS: PANTOPRAZOLE 40 MG TABLET PO SCH (08:46)
[2023-08-11] MEDS: SODIUM BICARBONATE TAB 650 MG TAB PO SCH ×2 (08:46→20:07)
[2023-08-11] MEDS: METOPROLOL TARTRATE 50 MG TAB PO SCH ×2 (08:46→20:07)
[2023-08-11] MEDS: ASCORBIC ACID 500 MG TAB PO SCH (08:46)
[2023-08-11] MEDS: NYSTATIN 100,000 UNIT/ML SUSP 500,000 UNIT/5 ML CUP PO SCH ×4 (08:46→21:13)
[2023-08-11] MEDS: FLUoxetine HCL 20 MG CAP PO SCH (08:46)
[2023-08-11] MEDS: TORSEMIDE 20 MG TAB PO SCH (08:47)
[2023-08-11] MEDS: HYDROPHILIC CREAM 180 GM TUBE TOPICAL SCH (08:47)
[2023-08-11] MEDS: MIDODRINE 5 MG TAB PO SCH ×4 (08:47→17:25)
[2023-08-11] MEDS: PRAVASTATIN SODIUM 20 MG TAB PO SCH (08:47)
[2023-08-11 11:12] LABS: HCT 24.2 % (37.2-46.3); MCH 30.7 pg (27.0-32.0); MCHC 28.9 d/dL (32.0-37.0); MCV 106.1 FL (80.0-97.0); NRBC Per 100 WBC 0 X 10*3/uL (0.00-0.01); Platelet Count 268 X 10*3/uL (140-440); RBC 2.28 X 10*6/uL (4.10-5.20); RDW 18.7 % (11.5-14.5); WBC 8.46 X 10*3/uL (4.50-10.00)
[2023-08-11] MEDS: HYDROmorphone 0.5 MG/0.5 ML SYRINGE IVP PRN (11:26)
[2023-08-11] MEDS: MEROPENEM 1 GM in SODIUM CHLORIDE 0.9% 100 ML IVPB SCH (11:26)
[2023-08-11 11:30] LABS: ALT 10 U/L (8-44); AST 28 U/L (13-35); Albumin 2.2 d/dL (3.8-4.9); Albumin/Globulin Ratio 0.85 Ratio (1.60-3.17); Alkaline Phosphatase 57 U/L (41-126); BUN/Creat Ratio 30.14 Ratio (12.00-20.00); Blood Urea Nitrogen 63.3 mg/dL (9.0-27.0); Calcium 8.2 mg/dL (8.7-10.3); Carbon Dioxide 21.9 mmol/L (21.6-31.8); Chloride 106 mmol/L (96-109); Globulin 2.6 d/dL (1.6-3.3); Glucose 78 mg/dL (70-110); Potassium 4.4 mmol/L (3.5-5.5); Sodium 139 mmol/L (135-145); Total Bilirubin <0.2 mg/dL (0.3-1.2); Total Protein 4.8 d/dL (6.2-8.2)
[2023-08-11 12:29] LABS: Basophils # (M) 0.08 X 10*3/uL (0.00-0.10); Eosinophils # (M) 0.42 X 10*3/uL (0.04-0.35); Lymphocytes # (M) 0.34 X 10*3/uL (0.90-5.00); Monocytes # (M) 0.59 X 10*3/uL (0.20-1.00); Myelocytes % 2 % (0-0); Neutrophils # (M) 6.85 X 10*3/uL (1.80-7.70); Neutrophils % (M) 81 %
--- NOTE | 2023-08-11 12:41 | P.PN ---
Subjective Patient is seen for follow-up for acute kidney injury. Renal function is improved Currently off of hemodialysis. Maintained on antibiotics for MSSA bacteremia. Left femoral tunneled catheter was removed. Renal function remaines stable with serum creatinine at 2.1 -2.4 mg/dL. No significant complaints today Objective - Vital Signs Vital signs: Vital Signs Temp 98.1 F 08/11/23 08:00 Pulse 72 08/11/23 08:00 Resp 20 08/11/23 08:00 BP 109/67 08/11/23 08:00 Pulse Ox 98 08/11/23 08:00 FiO2 Intake & Output 08/10/23 08/11/23 08/11/23 18:59 06:59 18:59 Intake Total 590 180 Output Total 700 500 400 Balance -700 90 -220 Intake: Oral 590 180 Output: Urine 700 500 400 Other: Voiding Method Indwelling Catheter Indwelling Catheter Indwelling Catheter # Voids 0 # Bowel Movements 2 1 0 - Exam Patient is awake, comfortable, no acute distress Alert oriented 3 Examination of the heart S1 and S2 Examination of the lungs bilateral breath sounds are heard Abdomen is soft nontender Examination lower extremities shows left leg with 1+ edema, right leg is in brace - Labs CBC & Chem 7: 08/11/23 06:26 08/11/23 06:26 Labs: Abnormal Lab Results - Last 24 Hours (Table) 08/10/23 08/11/23 08/11/23 Range/Units 06:40 06:26 06:26 RBC 2.28 L (4.10-5.20) X 10*6/uL Hgb 7.0 L (12.0-15.0) d/dL Hct 24.2 L (37.2-46.3) % MCV 106.1 H (80.0-97.0) FL MCHC 28.9 L (32.0-37.0) d/dL RDW 18.7 H (11.5-14.5) % Lymphocytes # (Manual) 0.34 L (0.90-5.00) X 10*3/uL Eosinophils # (Manual) 0.42 H (0.04-0.35) X 10*3/uL BUN 63.3 H (9.0-27.0) mg/dL Creatinine 2.1 H (0.6-1.5) mg/dL Est GFR (CKD-EPI) 23 L (>=60) BUN/Creatinine Ratio 30.14 H (12.00-20.00) Ratio Calcium 8.2 L (8.7-10.3) mg/dL Iron 41 L (50-170) UG/DL TIBC 158 L (228-460) UG/DL Transferrin 113.0 L (204.0-354.0) mg/dL Total Bilirubin <0.2 L (0.3-1.2) mg/dL Total Protein 4.8 L (6.2-8.2) d/dL Albumin 2.2 L (3.8-4.9) d/dL Albumin/Globulin Ratio 0.85 L (1.60-3.17) Ratio Assessment and Plan Assessment: 1. Acute kidney injury secondary to ATN secondary to severe sepsis and rhabdomyolysis. Patient required hemodialysis but now has been off hemodialysis for more than 2 weeks . Baseline creatinine prior to acute kidney injury episode was near 0.8. Creatinine this admission has been in the range of 2.6- 3.2, down to 2.2 today. Establish new baseline renal function. Nonoliguric. Ultrasound from 06/11/2023 showed no hydronephrosis. 2. Staph aureus bacteremia status post removal of groin dialysis catheter. On antibiotics. Catheter tip culture positive for staph aureus. 3. Hyperphosphatemia secondary to acute kidney injury maintained on Renvela. Phosphorus level 4.9. 4. Anemia. Possibly component of chronic kidney disease. On Aranesp. Hemoglo bin 6.5 today. Receiving packed RBCs transfusion. 5. Volume overload. Status post diuresis this admission. 6. Metabolic acidosis secondary to acute kidney injury maintained on oral bicarb. 7. Chronic diastolic CHF with mild to moderate mitral regurgitation. 8. Hypokalemia from poor intake and diuresis. Replaced. Improved. Plan: Continue off of dialysis. Continue diuretics Continue antibiotics as per ID Continue to avoid nephrotoxic medications. Continue midodrine
[2023-08-11] MEDS: SEVELAMER 800 MG TAB PO SCH ×2 (12:58→17:25)
[2023-08-11] MEDS: SODIUM FERRIC GLUCONAT-SUCROSE 125 MG in SODIUM CHLORIDE 0.9% 100 ML IVPB SCH (13:15)
[2023-08-11] MEDS: HYDROmorphone 1 MG/ML 1 ML SYRINGE IVP PRN ×2 (13:15→21:16)
--- NOTE | 2023-08-11 16:42 | P.PN ---
Subjective Progress Note Date: 08/11/23 Principal diagnosis: MSSA bacteremia Patient is a 82-year-old female with a past medical history significant for hypertension hyperlipidemia history of chronic lower extremity venous stasis ulcer with recent admission to the hospital have E. coli bacteremia patient did develop ATN requiring hemodialysis patient was subsequently stabilized and transferred to local care home for rehabilitation , patient did have improvement her kidney function and did not require any further dialysis however the patient continued to have right groin dialysis catheter no presenting to the hospital with weakness tachycardia and did have a positive blood culture with MSSA. Patient did have a mole of the right groin dialysis catheter by vascular surgery on 07/28/2023, patient did have deployment of bilateral heel wound by Dr. Miranda on 08/02/2023 with a repeat debridement on 08/08/2023 On today's evaluation that is 08/11/2023, the patient remains to be afebrile the patient is breathing comfortably on room air, the patient denies chest pain and no significant cough or sputum production, patient denies nausea/vomiting and no diarrhea, no new symptoms Patient did have white count has normalized to 8.46, creatinine is 2.1, catheter tip positive blood culture repeated on 07/28/2023 also positive, blood culture from 08/01/2023 so far negative cultures obtained from heel wound were obtained from the micro-lab after multiple calls did grew drug-resistant Pseudomonas P roteus and enterococcus faecalis Objective - Vital Signs Vital signs: Vital Signs Temp 98.3 F 08/11/23 13:15 Pulse 68 08/11/23 13:15 Resp 20 08/11/23 13:15 BP 88/56 08/11/23 13:15 Pulse Ox 97 08/11/23 13:15 FiO2 Intake & Output 08/10/23 08/11/23 08/11/23 18:59 06:59 18:59 Intake Total 590 180 Output Total 700 500 400 Balance -700 90 -220 Intake: Oral 590 180 Output: Urine 700 500 400 Other: Voiding Method Indwelling Catheter Indwelling Catheter Indwelling Catheter # Voids 0 # Bowel Movements 2 1 0 - Exam GENERAL DESCRIPTION: An elderly female lying in bed in no distress RESPIRATORY SYSTEM: Unlabored breathing , decreased breath sounds at bases HEART: S1 S2 regular rate and rhythm , ABDOMEN: Soft , no tenderness EXTREMITIES: Bilateral heel wounds right greater than the left - Labs CBC & Chem 7: 10/12/23 06:26 08/11/23 06:26 Labs: Abnormal Lab Results - Last 24 Hours (Table) 08/10/23 08/11/23 08/11/23 Range/Units 06:40 06:26 06:26 RBC 2.28 L (4.10-5.20) X 10*6/uL Hgb 7.0 L (12.0-15.0) d/dL Hct 24.2 L (37.2-46.3) % MCV 106.1 H (80.0-97.0) FL MCHC 28.9 L (32.0-37.0) d/dL RDW 18.7 H (11.5-14.5) % Lymphocytes # (Manual) 0.34 L (0.90-5.00) X 10*3/uL Eosinophils # (Manual) 0.42 H (0.04-0.35) X 10*3/uL BUN 63.3 H (9.0-27.0) mg/dL Creatinine 2.1 H (0.6-1.5) mg/dL Est GFR (CKD-EPI) 23 L (>=60) BUN/Creatinine Ratio 30.14 H (12.00-20.00) Ratio Calcium 8.2 L (8.7-10.3) mg/dL Iron 41 L (50-170) UG/DL TIBC 158 L (228-460) UG/DL Transferrin 113.0 L (204.0-354.0) mg/dL Total Bilirubin <0.2 L (0.3-1.2) mg/dL Total Protein 4.8 L (6.2-8.2) d/dL Albumin 2.2 L (3.8-4.9) d/dL Albumin/Globulin Ratio 0.85 L (1.60-3.17) Ratio Assessment and Plan (1) Cellulitis Current Visit: Yes Status: Acute Code(s): L03.90 - CELLULITIS, UNSPECIFIED SNOMED Code(s): 457928370 (2) Leukocytosis Current Visit: Yes Status: Acute Code(s): D72.829 - ELEVATED WHITE BLOOD C ELL COUNT, UNSPECIFIED SNOMED Code(s): 787105335 (3) Stage II pressure ulcer of left buttock Current Visit: Yes Status: Acute Code(s): L89.322 - PRESSURE ULCER OF LEFT BUTTOCK, STAGE 2 SNOMED Code(s): 85184190159919 (4) Stage II pressure ulcer of left heel Current Visit: Yes Status: Acute Code(s): L89.622 - PRESSURE ULCER OF LEFT HEEL, STAGE 2 SNOMED Code(s): 95627454873784 (5) Stage II pressure ulcer of right buttock Current Visit: Yes Status: Acute Code(s): L89.312 - PRESSURE ULCER OF RIGHT BUTTOCK, STAGE 2 SNOMED Code(s): 57445240365194 (6) MSSA bacteremia Current Visit: Yes Status: Acute Code(s): R78.81 - BACTEREMIA; B95.61 - METHICILLIN SUSCEP STAPH INFCT CAUSING DIS CLASSD ELSWHR SNOMED Code(s): 068650534 Plan: 1patient presented to hospital with tachycardia patient did have a low-grade fever and elevated white count and MSSA bacteremia source is likely dialysis catheter infection which has been discontinued 2-right lower extremity wound care with a dry Aquacel dressing and Daniel wrap for compression 3-to continue with zinc to the excoriated skin to the bilateral gluteal and sacral area keep the area of the pressure 4 blood culture repeated on 07/28/2023 positive however blood cultures on 08/01/2023 has been negative, we will continue the patient on daptomycin to finish treatment for her bacteremia, with the last dose of daptomycin will be 08/15/2023 5- patient also have bilateral heel infected wound, status post debridement of bilateral heel wounds and those cultures are growing drug-resistant Pseudomonas Enterococcus faecalis and Proteus , per discussion with the surgeon at the time of debridement the wound was tracking all the way down to the bone to the right heel, concerning for deep infection and osteomyelitis patient did got a PICC line on 08/10/2023, the patient white count has normalized 6- plan is for 6week course of meropenem, and close outpatient follow-up Dictation was produced using [employer] software. please excuse any grammatical, word or spelling errors.
--- NOTE | 2023-08-11 17:28 | P.PN ---
Subjective Progress Note Date: 08/11/23 This is an 82-year-old female patient with an extensive medical history who presented to the ER with concerns of atrial flutter with RVR and rash. Patient remains with left femoral dialysis port. Concerns of possible ALLERGIC reaction due to antibiotics patient was given Benadryl and Solu-Medrol. Patient is a poor historian unable to recall recent events. Past medical history includes hyperlipidemia hypertension, end-stage renal disease requiring hemodialysis during previous hospitalization, osteoarthritis, GERD. Chest x-ray completed showing vascular congestion. EKG completed showing sinus tachycardia possible atrial flutter rate 144. White blood cell elevated 21.4, creatinine 2.63, bun 5 4. BNP 9640. Troponin 0.404, 0.7 696 and 1.360. Wound noted to left lower extremity. Patient was started on heparin for elevated troponins and Cardizem. Patient started on IV vancomycin. 2-D echo ordered. Unclear patient has been receiving hemodialysis. Attempting to obtain medical records. Cardiology, nephrology infectious disease and wound care service is consulted. Blood culture ordered. Repeat labs will be ordered. At this time patient is resting comfortably in bed. Current vital signs temp 98.5, heart rate 108, respiratory rate 20, blood pressure 131/72 with a pulse ox 93% on room air On 07/28/2023 patient was seen and examined on the medical floor she is alert and oriented 3 in no apparent distress, she is complaining of severe pain in the lower extremity especially at the time of dressing change, she is also complaining of fatigue and generalized weakness, otherwise she denies any complaints there is no fever or chills no headache or dizziness no chest pain no shortness of breath no cough no nausea or vomiting no abdominal pain no diarrhea no burning with urination no frequency or urgency and no hematuria. On 07/29/2023 patient is alert and oriented 3. Patient had hemodialysis cath removed with tip culture for source of infection. Blood cultures showing presumptive staph aureus. Infectious disease are following. Patient remains on IV antibiotic. White blood cell is trending down 18.8. Current vital signs temp 97.4, heart rate 87, respiratory rate 18, blood pressure 117/74 with a pulse ox 97% on room air On 07/30/2023 patient was seen and examined on the telemetry floor she is alert and oriented 3 in no apparent distress, she is complaining of generalized weakness, otherwise she denies any complaints, vital exam reveals a temperature of 98.4 pulse 71 respiration 14 blood pressure 115/67 pulse ox 95% on room air sodium 136 potassium 4.1 chloride 101 CO2 19 BUN 108 creatinine 2.59, patient is improving gradually, PT and OT consult, she remains on IV antibiotics, will follow closely On 07/31/2023 patient was seen and examined on the telemetry floor she is alert and oriented 3 in no apparent distress she is still complaining of weakness and complaining of low back pain otherwise she denies any complaints there is no fever or chills no headache or dizziness no chest pain no shortness of breath no cough no nausea or vomiting no abdominal pain no diarrhea and no urinary symptoms. Labs today are still pending, yesterday white blood count was still elevated at 20.7 BUN 108 creatinine 2.59 will continue with current antibiotics infectious disease are following On 08/01/2023 patient was seen and examined on the telemetry floor she is alert and oriented 3 in no apparent distress she is complaining of generalized weakness and low back pain, otherwise she denies any complaints there is no fever or chills no headache or dizziness no chest pain no shortness of breath no cough no nausea or vomiting no abdominal pain no diarrhea and no urinary symptoms. Today white blood count is 23.9 hemoglobin 8.5 platelet count 180 BUN 19 9 creatinine 3.2 On 08/02/2023 patient is alert and oriented 3 currently sitting up in bed eating breakfast. Repeat blood culture has been ordered per infectious disease due to continuing leukocytosis. Antibiotics adjusted to nafcillin per ID. Current vital signs temp 97.6, heart rate 77, respiratory rate 18, blood pressure 87/53 with pulse ox 96% on room. Patient denies chest pain or short ness breath. Patient denies nausea vomiting or diarrhea. Patient denies any urinary burning or frequency On 08/03/2023 patient is alert and oriented 3 currently resting in bed eating breakfast. Patient underwent debridement of right heel pressure ulcer with Dr. Miranda yesterday. White blood cell today slightly improved at 18.17. Creatinine 3.1 nephrology.\, infectious disease and wound care service is following. Patient denies chest pain or shortness of breath. Patient denies nausea vomiting or diarrhea. Patient denies any urinary burning or frequency On 08/04/2023 patient was seen and examined on the medical floor, she is alert and oriented 3 she is complaining of bilateral lower extremity pain especially at the time of dressing change and debridement of her wounds. White blood cell today slightly improved at 18.17. Creatinine 3.1 nephrology.\, infectious disease and wound care service is following. Patient denies chest pain or shortness of breath. Patient denies nausea vomiting or diarrhea. Patient denies any urinary burning or frequency On 08/05/2023 patient is alert and oriented 3. Patient remains on IV antibiotics. Current vital signs temp 97.5, heart rate 62, respiratory rate 16, blood pressure 93/62 with pulse ox 97% on room air. Lab work currently pending. Patient denies chest pain or shortness breath. Patient denies nausea vomiting or diarrhea. Patient denies any urinary burning or frequency. On 08/06/2023 patient was seen and examined on the medical floor she is alert and oriented 3 in no apparent distress, she is feeling better today she is sitting up and eating her meal there is no fever or chills no headache or dizziness no chest pain no shortness of breath no cough no nausea or vomiting no abdominal pain no diarrhea and no urinary symptoms. On 08/07/2023 patient was seen and examined on the medical floor is alert and oriented in no apparent distress she is still complaining of generalized weakness and complaining of pain in bilateral lower extremities otherwise she denies any complaints her vital exam reveals a temperature of 98.2 pulse 59 respiration 16 blood pressure 101/60 pulse ox 97% on room air her white blood co unt is 13.2 hemoglobin 7.7 platelet count 363 BUN 74 creatinine 2.42 On 08/08/2023 patient was seen and examined on the medical floor she is alert and oriented in no apparent distress she is still complaining of severe pain in the lower extremities especially at the time of debridement or dressing changes she is also complaining of generalized weakness otherwise she denies any complaints there is no fever or chills no chest pain or shortness of breath no cough , no nausea or vomiting no abdominal pain no diarrhea and no urinary symptoms. On 08/09/2023 patient is alert and oriented 3. Patient reports improvement in his overall discomfort. Patient remains on IV daptomycin and meropenem. Nephrology infectious he services are following. Patient denies chest pain or shortness breath. Patient denies nausea vomiting or diarrhea. Patient denies any urinary frequency On 08/10/2023 patient's alert and oriented 3. Patient had PICC line placement today with plans of IV vancomycin and meropenem upon discharge to [facility] facility. There were tentative plans for EGD and colonoscopy per surgical service but her family and patient it was decided to hold off on scopes at this point continue monitor hemoglobin and make a decision if needed. Hemoglobin today 7.1. White blood cell 12.02. Will order repeat labs for a.m. patient denies chest pain or shortness breath. Patient denies nausea vomiting or diarrhea. Patient denies any urinary burning or frequency On 08/11/2023 patient was seen and examined on the medical floor she is alert and oriented 3 in no apparent distress there is no fever or chills no headache or dizziness no chest pain no shortness of breath no cough no nausea or vomiting no abdominal pain no diarrhea and no urinary symptoms she is still complaining of severe pain in bilateral lower extremities. Orders for Dilaudid renewed, otherwise hemoglobin is still low down to 7 today, iron level is low patient will be given IV iron, will continue to follow closely. Objective - Vital Signs Vital signs: Vital Signs Temp 98.1 F 08/11/23 08:00 Pulse 72 08/11/23 08:00 Resp 20 08/11/23 08:00 BP 111/68 08/11/23 13:02 Pulse Ox 98 08/11/23 08:00 FiO2 Intake & Output 08/10/23 08/11/23 08/11/23 18:59 06:59 18:59 Intake Total 590 180 Output Total 700 500 400 Balance -700 90 -220 Intake: Oral 590 180 Output: Urine 700 500 400 Other: Voiding Method Indwelling Catheter Indwelling Catheter Indwelling Catheter # Voids 0 # Bowel Movements 2 1 0 - Exam Head normocephalic Neck supple Lungs diminished bilaterally Heart regular rate and rhythm S1-S2, no rub or gallop Abdomen is soft nontender nondistended positive bowel sounds no hepatosplenomegaly Extremities multiple wounds to lower extremities Neuro alert and orientated to 3 - Labs CBC & Chem 7: 08/11/23 06:26 08/11/23 06:26 Labs: Abnormal Lab Results - Last 24 Hours (Table) 08/10/23 08/11/23 08/11/23 Range/Units 06:40 06:26 06:26 RBC 2.28 L (4.10-5.20) X 10*6/uL Hgb 7.0 L (12.0-15.0) d/dL Hct 24.2 L (37.2-46.3) % MCV 106.1 H (80.0-97.0) FL MCHC 28.9 L (32.0-37.0) d/dL RDW 18.7 H (11.5-14.5) % Lymphocytes # (Manual) 0.34 L (0.90-5.00) X 10*3/uL Eosinophils # (Manual) 0.42 H (0.04-0.35) X 10*3/uL BUN 63.3 H (9.0-27.0) mg/dL Creatinine 2.1 H (0.6-1.5) mg/dL Est GFR (CKD-EPI) 23 L (>=60) BUN/Creatinine Ratio 30.14 H (12.00-20.00) Ratio Calcium 8.2 L (8.7-10.3) mg/dL Iron 41 L (50-170) UG/DL TIBC 158 L (228-460) UG/DL Transferrin 113.0 L (204.0-354.0) mg/dL Total Bilirubin <0.2 L (0.3-1.2) mg/dL Total Protein 4.8 L (6.2-8.2) d/dL Albumin 2.2 L (3.8-4.9) d/dL Albumin/Globulin Ratio 0.85 L (1.60-3.17) Ratio Assessment and Plan Assessment: 1. Atrial flutter with RVR 2. Possible ALLERGIC reaction 3. Right lower Cellulitis with multiple wounds 4. Acute renal failure patient was started on hemodialysis during previous admission right femoral dialysis catheter in place. Unclear if patient is still receiving hemodialysis [facility] facility attempting to obtain medical records. Catheter removed and cultured 5. Elevated troponins 6. History of recent admission following fall with rhabdomyolysis 7. Recent urinary tract infection with E. coli bacteremia 8. Recent treatment for suspected C. diff 9. 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 GI prophylaxis Protonix Cardiology, nephrology, infectious disease and wound care service is consulted Hemodialysis catheter removed and cultured. Status post wound debridement on 08/02/2023 Patient remains on IV antibiotics Repeat blood cultures ordered per ID on 08/01/2023
[2023-08-11 20:03] LABS: Glucose,Whole Blood 138 mg/dL (70-110)
[2023-08-11] MEDS: MONTELUKAST 10 MG TAB PO SCH (20:07)
[2023-08-12] MEDS: HYDROmorphone 1 MG/ML 1 ML SYRINGE IVP PRN ×6 (00:18→21:39)
[2023-08-12] MEDS: MEROPENEM 1 GM in SODIUM CHLORIDE 0.9% 100 ML IVPB SCH ×2 (00:19→13:09)
[2023-08-12] MEDS: CHOLESTYRAMINE (WITH SUGAR) 4 GM PACKET PO SCH ×2 (08:06→20:02)
[2023-08-12] MEDS: HYDROcodone/APAP 7.5-325MG 1 EACH TAB PO PRN (08:06)
[2023-08-12] MEDS: FLUoxetine HCL 20 MG CAP PO SCH (08:06)
[2023-08-12] MEDS: NYSTATIN 100,000 UNIT/ML SUSP 500,000 UNIT/5 ML CUP PO SCH (08:06)
[2023-08-12] MEDS: SODIUM BICARBONATE TAB 650 MG TAB PO SCH ×2 (08:06→20:02)
[2023-08-12] MEDS: MIDODRINE 5 MG TAB PO SCH ×4 (08:06→17:37)
[2023-08-12] MEDS: PANTOPRAZOLE 40 MG TABLET PO SCH (08:06)
[2023-08-12] MEDS: METOPROLOL TARTRATE 50 MG TAB PO SCH ×2 (08:06→20:02)
[2023-08-12] MEDS: ASCORBIC ACID 500 MG TAB PO SCH (08:06)
[2023-08-12] MEDS: PRAVASTATIN SODIUM 20 MG TAB PO SCH (08:07)
[2023-08-12] MEDS: TORSEMIDE 20 MG TAB PO SCH (08:07)
[2023-08-12] MEDS: HYDROPHILIC CREAM 180 GM TUBE TOPICAL SCH (08:07)
[2023-08-12] MEDS: SODIUM FERRIC GLUCONAT-SUCROSE 125 MG in SODIUM CHLORIDE 0.9% 100 ML IVPB SCH (08:15)
--- NOTE | 2023-08-12 10:48 | P.PN ---
Subjective Progress Note Date: 08/12/23 This is an 82-year-old female patient with an extensive medical history who presented to the ER with concerns of atrial flutter with RVR and rash. Patient remains with left femoral dialysis port. Concerns of possible ALLERGIC reaction due to antibiotics patient was given Benadryl and Solu-Medrol. Patient is a poor historian unable to recall recent events. Past medical history includes hyperlipidemia hypertension, end-stage renal disease requiring hemodialysis during previous hospitalization, osteoarthritis, GERD. Chest x-ray completed showing vascular congestion. EKG completed showing sinus tachycardia possible atrial flutter rate 144. White blood cell elevated 21.4, creatinine 2.63, bun 5 4. BNP 9640. Troponin 0.404, 0.7 696 and 1.360. Wound noted to left lower extremity. Patient was started on heparin for elevated troponins and Cardizem. Patient started on IV vancomycin. 2-D echo ordered. Unclear patient has been receiving hemodialysis. Attempting to obtain medical records. Cardiology, nephrology infectious disease and wound care service is consulted. Blood culture ordered. Repeat labs will be ordered. At this time patient is resting comfortably in bed. Current vital signs temp 98.5, heart rate 108, respiratory rate 20, blood pressure 131/72 with a pulse ox 93% on room air On 07/28/2023 patient was seen and examined on the medical floor she is alert and oriented 3 in no apparent distress, she is complaining of severe pain in the lower extremity especially at the time of dressing change, she is also complaining of fatigue and generalized weakness, otherwise she denies any complaints there is no fever or chills no headache or dizziness no chest pain no shortness of breath no cough no nausea or vomiting no abdominal pain no diarrhea no burning with urination no frequency or urgency and no hematuria. On 07/29/2023 patient is alert and oriented 3. Patient had hemodialysis cath removed with tip culture for source of infection. Blood cultures showing presumptive staph aureus. Infectious disease are following. Patient remains on IV antibiotic. White blood cell is trending down 18.8. Current vital signs temp 97.4, heart rate 87, respiratory rate 18, blood pressure 117/74 with a pulse ox 97% on room air On 07/30/2023 patient was seen and examined on the telemetry floor she is alert and oriented 3 in no apparent distress, she is complaining of generalized weakness, otherwise she denies any complaints, vital exam reveals a temperature of 98.4 pulse 71 respiration 14 blood pressure 115/67 pulse ox 95% on room air sodium 136 potassium 4.1 chloride 101 CO2 19 BUN 108 creatinine 2.59, patient is improving gradually, PT and OT consult, she remains on IV antibiotics, will follow closely On 07/31/2023 patient was seen and examined on the telemetry floor she is alert and oriented 3 in no apparent distress she is still complaining of weakness and complaining of low back pain otherwise she denies any complaints there is no fever or chills no headache or dizziness no chest pain no shortness of breath no cough no nausea or vomiting no abdominal pain no diarrhea and no urinary symptoms. Labs today are still pending, yesterday white blood count was still elevated at 20.7 BUN 108 creatinine 2.59 will continue with current antibiotics infectious disease are following On 08/01/2023 patient was seen and examined on the telemetry floor she is alert and oriented 3 in no apparent distress she is complaining of generalized weakness and low back pain, otherwise she denies any complaints there is no fever or chills no headache or dizziness no chest pain no shortness of breath no cough no nausea or vomiting no abdominal pain no diarrhea and no urinary symptoms. Today white blood count is 23.9 hemoglobin 8.5 platelet count 180 BUN 19 9 creatinine 3.2 On 08/02/2023 patient is alert and oriented 3 currently sitting up in bed eating breakfast. Repeat blood culture has been ordered per infectious disease due to continuing leukocytosis. Antibiotics adjusted to nafcillin per ID. Current vital signs temp 97.6, heart rate 77, respiratory rate 18, blood pressure 87/53 with pulse ox 96% on room. Patient denies chest pain or short ness breath. Patient denies nausea vomiting or diarrhea. Patient denies any urinary burning or frequency On 08/03/2023 patient is alert and oriented 3 currently resting in bed eating breakfast. Patient underwent debridement of right heel pressure ulcer with Dr. Miranda yesterday. White blood cell today slightly improved at 18.17. Creatinine 3.1 nephrology.\, infectious disease and wound care service is following. Patient denies chest pain or shortness of breath. Patient denies nausea vomiting or diarrhea. Patient denies any urinary burning or frequency On 08/04/2023 patient was seen and examined on the medical floor, she is alert and oriented 3 she is complaining of bilateral lower extremity pain especially at the time of dressing change and debridement of her wounds. White blood cell today slightly improved at 18.17. Creatinine 3.1 nephrology.\, infectious disease and wound care service is following. Patient denies chest pain or shortness of breath. Patient denies nausea vomiting or diarrhea. Patient denies any urinary burning or frequency On 08/05/2023 patient is alert and oriented 3. Patient remains on IV antibiotics. Current vital signs temp 97.5, heart rate 62, respiratory rate 16, blood pressure 93/62 with pulse ox 97% on room air. Lab work currently pending. Patient denies chest pain or shortness breath. Patient denies nausea vomiting or diarrhea. Patient denies any urinary burning or frequency. On 08/06/2023 patient was seen and examined on the medical floor she is alert and oriented 3 in no apparent distress, she is feeling better today she is sitting up and eating her meal there is no fever or chills no headache or dizziness no chest pain no shortness of breath no cough no nausea or vomiting no abdominal pain no diarrhea and no urinary symptoms. On 08/07/2023 patient was seen and examined on the medical floor is alert and oriented in no apparent distress she is still complaining of generalized weakness and complaining of pain in bilateral lower extremities otherwise she denies any complaints her vital exam reveals a temperature of 98.2 pulse 59 respiration 16 blood pressure 101/60 pulse ox 97% on room air her white blood co unt is 13.2 hemoglobin 7.7 platelet count 363 BUN 74 creatinine 2.42 On 08/08/2023 patient was seen and examined on the medical floor she is alert and oriented in no apparent distress she is still complaining of severe pain in the lower extremities especially at the time of debridement or dressing changes she is also complaining of generalized weakness otherwise she denies any complaints there is no fever or chills no chest pain or shortness of breath no cough , no nausea or vomiting no abdominal pain no diarrhea and no urinary symptoms. On 08/09/2023 patient is alert and oriented 3. Patient reports improvement in his overall discomfort. Patient remains on IV daptomycin and meropenem. Nephrology infectious he services are following. Patient denies chest pain or shortness breath. Patient denies nausea vomiting or diarrhea. Patient denies any urinary frequency On 08/10/2023 patient's alert and oriented 3. Patient had PICC line placement today with plans of IV vancomycin and meropenem upon discharge to [facility] facility. There were tentative plans for EGD and colonoscopy per surgical service but her family and patient it was decided to hold off on scopes at this point continue monitor hemoglobin and make a decision if needed. Hemoglobin today 7.1. White blood cell 12.02. Will order repeat labs for a.m. patient denies chest pain or shortness breath. Patient denies nausea vomiting or diarrhea. Patient denies any urinary burning or frequency On 08/11/2023 patient was seen and examined on the medical floor she is alert and oriented 3 in no apparent distress there is no fever or chills no headache or dizziness no chest pain no shortness of breath no cough no nausea or vomiting no abdominal pain no diarrhea and no urinary symptoms she is still complaining of severe pain in bilateral lower extremities. Orders for Dilaudid renewed, otherwise hemoglobin is still low down to 7 today, iron level is low patient will be given IV iron, will continue to follow closely. On 09/12/2023 patient's alert and oriented 3. Patient remains second dose of IV iron. Patient reports some improvement but still complaining of discomfort awaiting lab results. Current vital signs temp 97.9, heart rate 91. 18, blood pressure 124/70 with pulse ox of 94% on room air Objective - Vital Signs Vital signs: Vital Signs Temp 97.9 F 08/12/23 08:10 Pulse 91 08/12/23 08:10 Resp 18 08/12/23 08:10 BP 124/70 08/12/23 08:10 Pulse Ox 94 L 08/12/23 08:10 FiO2 Intake & Output 08/11/23 08/12/23 08/12/23 18:59 06:59 18:59 Intake Total 480 590 Output Total 400 800 Balance 80 -210 Intake: Intake, IV Titration 300 Amount DAPTOmycin 400 mg In 100 Sodium Chloride 0.9% 50 ml @ 100 mls/hr IVPB Q48H [facility] Rx#:[id number] Meropenem 1 gm In Sodium 100 Chloride 0.9% 100 ml @ 33 .3 mls/hr IVPB Q12HR@0000 ,1200 [facility] Rx#:[id number] Sodium Ferric Gluconat- 100 Sucrose 125 mg In Sodium Chloride 0.9% 100 ml @ 100 mls/hr IVPB DAILY [facility] Rx#:[id number] Oral 180 590 Output: Urine 400 800 Other: Voiding Method Indwelling Catheter Indwelling Catheter # Voids 0 # Bowel Movements 0 - Exam Head normocephalic Neck supple Lungs diminished bilaterally Heart regular rate and rhythm S1-S2, no rub or gallop Abdomen is soft nontender nondistended positive bowel sounds no hepatosplenomegaly Extremities multiple wounds to lower extremities Neuro alert and orientated to 3 - Labs CBC & Chem 7: 08/11/23 06:26 08/11/23 06:26 Labs: Abnormal Lab Results - Last 24 Hours (Table) 08/11/23 08/11/23 08/11/23 Range/Units 06:26 06:26 20:01 RBC 2.28 L (4.10-5.20) X 10*6/uL Hgb 7.0 L (12.0-15.0) d/dL Hct 24.2 L (37.2-46.3) % MCV 106.1 H (80.0-97.0) FL MCHC 28.9 L (32.0-37.0) d/dL RDW 18.7 H (11.5-14.5) % Lymphocytes # (Manual) 0.34 L (0.90-5.00) X 10*3/uL Eosinophils # (Manual) 0.42 H (0.04-0.35) X 10*3/uL BUN 63.3 H (9.0-27.0) mg/dL Creatinine 2.1 H (0.6-1.5) mg/dL Est GFR (CKD-EPI) 23 L (>=60) BUN/Creatinine Ratio 30.14 H (12.00-20.00) Ratio POC Glucose (mg/dL) 138 H (70-110) mg/dL Calcium 8.2 L (8.7-10.3) mg/dL Total Bilirubin <0.2 L (0.3-1.2) mg/dL Total Protein 4.8 L (6.2-8.2) d/dL Albumin 2.2 L (3.8-4.9) d/dL Albumin/Globulin Ratio 0.85 L (1.60-3.17) Ratio Assessment and Plan Assessment: 1. Atrial flutter with RVR 2. Possible ALLERGIC reaction 3. Right lower Cellulitis with multiple wounds 4. Acute renal failure patient was started on hemodialysis during previous admission right femoral dialysis catheter in place. Unclear if patient is still receiving hemodialysis [facility] facility attempting to obtain medical records. Catheter removed and cultured 5. Elevated troponins 6. History of recent admission following fall with rhabdomyolysis 7. Recent urinary tract infection with E. coli bacteremia 8. Recent treatment for suspected C. diff 9. 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 Anemia iron levels low IV iron ordered. Patient declined EGD and colonoscopy per surgical services DVT prophylaxis Lovenox. GI prophylaxis Protonix Cardiology, nephrology, infectious disease and wound care service is consulted Hemodialysis catheter removed and cultured. Status post wound debridement on 08/02/2023 Patient remains on IV antibiotics Repeat blood cultures ordered per ID on 08/01/2023
[2023-08-12 10:53] LABS: Anisocytosis Slight; Basophils % (A) 1 %; Eosinophils # (A) 0.5 k/uL (0-0.7); Eosinophils % (A) 6 %; HCT 24.9 % (34.0-46.0); HGB 7.5 gm/dL (11.4-16.0); Hypochromasia Marked; Lymphocytes # (A) 1.1 k/uL (1.0-4.8); Lymphocytes % (A) 12 %; MCH 31.6 pg (25.0-35.0); MCHC 30.3 g/dL (31.0-37.0); MCV 104.4 fL (80.0-100.0); Macrocytosis Moderate; Mean Platelet Volume 7.9; Monocytes # (A) 0.5 k/uL (0-1.0); Monocytes % (A) 6 %; Neutrophils # (A) 6.2 k/uL (1.3-7.7); Neutrophils % (A) 72 %; Platelet Count 256 k/uL (150-450); RBC 2.39 m/uL (3.80-5.40); RDW 17.6 % (11.5-15.5); WBC 8.6 k/uL (3.8-10.6)
--- NOTE | 2023-08-12 12:27 | P.PN ---
Subjective Patient is seen for follow-up for acute kidney injury. Renal function is improved Currently off of hemodialysis. Maintained on antibiotics for MSSA bacteremia. Left femoral tunneled catheter was removed. Renal function remaines stable with serum creatinine at 2.1 -2.4 mg/dL. No significant complaints today Objective - Vital Signs Vital signs: Vital Signs Temp 98.4 F 08/12/23 11:55 Pulse 71 08/12/23 11:55 Resp 18 08/12/23 11:55 BP 102/64 08/12/23 11:55 Pulse Ox 95 08/12/23 11:55 FiO2 Intake & Output 08/11/23 08/12/23 08/12/23 18:59 06:59 18:59 Intake Total 480 590 Output Total 400 800 Balance 80 -210 Intake: Intake, IV Titration 300 Amount DAPTOmycin 400 mg In 100 Sodium Chloride 0.9% 50 ml @ 100 mls/hr IVPB Q48H [facility] Rx#:[id number] Meropenem 1 gm In Sodium 100 Chloride 0.9% 100 ml @ 33 .3 mls/hr IVPB Q12HR@0000 ,1200 [facility] Rx#:[id number] Sodium Ferric Gluconat- 100 Sucrose 125 mg In Sodium Chloride 0.9% 100 ml @ 100 mls/hr IVPB DAILY [facility] Rx#:[id number] Oral 180 590 Output: Urine 400 800 Other: Voiding Method Indwelling Catheter Indwelling Catheter Indwelling Catheter # Voids 0 # Bowel Movements 0 - Exam Patient is awake, comfortable, no acute distress Alert oriented 3 Examination of the heart S1 and S2 Examination of the lungs bilateral breath sounds are heard Abdomen is soft nontender Examination lower extremities shows left leg with 1+ edema, right leg is in brace left leg is wrapped - Labs CBC & Chem 7: 08/12/23 10:20 08/11/23 06:26 Labs: Abnormal Lab Results - Last 24 Hours (Table) 08/11/23 08/11/23 08/12/23 Range/Units 06:26 20:01 10:20 RBC 2.39 L (3.80-5.40) m/uL Hgb 7.5 L (11.4-16.0) gm/dL Hct 24.9 L (34.0-46.0) % MCV 104.4 H (80.0-100.0) fL MCHC 30.3 L (31.0-37.0) g/dL RDW 17.6 H (11.5-15.5) % Lymphocytes # (Manual) 0.34 L (0.90-5.00) X 10*3/uL Eosinophils # (Manual) 0.42 H (0.04-0.35) X 10*3/uL POC Glucose (mg/dL) 138 H (70-110) mg/dL Assessment and Plan Assessment: 1. Acute kidney injury secondary to ATN secondary to severe sepsis and rhabdomyolysis. Patient required hemodialysis but now has been off hemodialysis for more than 2 weeks . Baseline creatinine prior to acute kidney injury episode was near 0.8. Creatinine this admission continues to decrease and was 2.1 yesterday.. Establish new baseline renal function. Nonoliguric. Ultrasound from 06/11/2023 showed no hydronephrosis. 2. Staph aureus bacteremia status post removal of groin dialysis catheter. On antibiotics. Catheter tip culture positive for staph aureus. 3. Hyperphosphatemia secondary to acute kidney injury maintained on Renvela. Phosphorus level 4.9. 4. Anemia. Possibly component of chronic kidney disease. On Aranesp. Hemoglobin 6.5 today. Receiving packed RBCs transfusion. 5. Volume overload. Status post diuresis this admission. 6. Metabolic acidosis secondary to acute kidney injury maintained on oral bicarb. 7. Chronic diastolic CHF with mild to moderate mitral regurgitation. 8. Hypokalemia from poor intake and diuresis. Replaced. Improved. Plan: Continue off of dialysis. Continue diuretics Continue antibiotics as per ID Continue to avoid nephrotoxic medications. Continue midodrine check labs
[2023-08-12] MEDS: SEVELAMER 800 MG TAB PO SCH ×2 (13:09→17:37)
--- NOTE | 2023-08-12 13:23 | P.PN ---
Subjective Progress Note Date: 08/12/23 CHIEF COMPLAINT: Anemia HISTORY OF PRESENT ILLNESS: Patient seen in follow-up for anemia. Patient has chronic lower extremity leg wounds with recent bleeding. No blood in stools. No abdominal pain. Fecal occult blood was negative. Hemoglobin 7.5 PHYSICAL EXAM: VITAL SIGNS: Reviewed. GENERAL: Well-developed in no acute distress. HEENT: No sclera icterus. Extraocular movements grossly intact. Moist buccal mucosa. Head is atraumatic, normocephalic. ABDOMEN: Soft. Nondistended. Nontender. NEUROLOGIC: Alert and oriented. Cranial nerves II through XII grossly intact. ASSESSMENT: 1. Anemia requiring blood transfusion 2. Chronic lower extremity wounds with bleeding 3. History of diverticulosis PLAN: -No plans on upper or lower endoscopy at this time -Continue to monitor for GI bleed -Heart healthy diet -Rest of medical management per primary medical team The impression and plan of care has been dictated as directed. I performed a history and examination of this patient, discussed the same with the dictator. I agree with the dictator's note ,documented as a scribe. Any additional findings or plans will be noted. Objective - Vital Signs Vital signs: Vital Signs Temp 98.4 F 08/12/23 11:55 Pulse 71 08/12/23 11:55 Resp 18 08/12/23 11:55 BP 102/64 08/12/23 11:55 Pulse Ox 95 08/12/23 11:55 FiO2 Intake & Output 08/11/23 08/12/23 08/12/23 18:59 06:59 18:59 Intake Total 480 590 Output Total 400 800 Balance 80 -210 Intake: Intake, IV Titration 300 Amount DAPTOmycin 400 mg In 100 Sodium Chloride 0.9% 50 ml @ 100 mls/hr IVPB Q48H [facility] Rx#:[id number] Meropenem 1 gm In Sodium 100 Chloride 0.9% 100 ml @ 33 .3 mls/hr IVPB Q12HR@0000 ,1200 [facility] Rx#:[id number] Sodium Ferric Gluconat- 100 Sucrose 125 mg In Sodium Chloride 0.9% 100 ml @ 100 mls/hr IVPB DAILY [facility] Rx#:[id number] Oral 180 590 Output: Urine 400 800 Other: Voiding Method Indwelling Catheter Indwelling Catheter Indwelling Catheter # Voids 0 # Bowel Movements 0 - Labs CBC & Chem 7: 08/12/23 10:20 08/11/23 06:26 Labs: Abnormal Lab Results - Last 24 Hours (Table) 08/11/23 08/12/23 Range/Units 20:01 10:20 RBC 2.39 L (3.80-5.40) m/uL Hgb 7.5 L (11.4-16.0) gm/dL Hct 24.9 L (34.0-46.0) % MCV 104.4 H (80.0-100.0) fL MCHC 30.3 L (31.0-37.0) g/dL RDW 17.6 H (11.5-15.5) % POC Glucose (mg/dL) 138 H (70-110) mg/dL
[2023-08-12 13:55] LABS: African American GFR (CKD) 34 (>60 ml/min/1.73 sqM); Anion Gap 10 mmol/L; Blood Urea Nitrogen 59 mg/dL (7-17); Calcium 8.1 mg/dL (8.4-10.2); Carbon Dioxide 21 mmol/L (22-30); Chloride 106 mmol/L (98-107); Glucose 115 mg/dL (74-99); Non-African American GFR(CKD) 29 (>60 ml/min/1.73 sqM); Potassium 4.4 mmol/L (3.5-5.1); Sodium 137 mmol/L (137-145)
[2023-08-12] MEDS: MONTELUKAST 10 MG TAB PO SCH (20:02)
--- NOTE | 2023-08-12 23:23 | P.PN ---
Subjective Progress Note Date: 08/12/23 Principal diagnosis: MSSA bacteremia Patient is a 82-year-old female with a past medical history significant for hypertension hyperlipidemia history of chronic lower extremity venous stasis ulcer with recent admission to the hospital have E. coli bacteremia patient did develop ATN requiring hemodialysis patient was subsequently stabilized and transferred to local alf for rehabilitation , patient did have improvement her kidney function and did not require any further dialysis however the patient continued to have right groin dialysis catheter no presenting to the hospital with weakness tachycardia and did have a positive blood culture with MSSA. Patient did have a mole of the right groin dialysis catheter by vascular surgery on 07/28/2023, patient did have deployment of bilateral heel wound by Dr. Miranda on 08/02/2023 with a repeat debridement on 08/08/2023 On today's evaluation that is 08/12/2023, the patient continues to be afebrile the patient is breathing comfortably on room air, the patient denies chest pain or cough, patient denies abdominal pain and no nausea/vomiting and no diarrhea has been reported, pt is feeling better Patient did have white count has normalized to 8.6, creatinine is 1.6, catheter tip positive blood culture repeated on 07/28/2023 also positive, blood culture from 08/01/2023 so far negative cultures obtained from heel wound were obtained from the micro-lab after multiple calls did grew drug-resistant Pseudomonas Proteus and enterococcus faecalis Objective - Vital Signs Vital signs: Vital Signs Temp 97.9 F 08/12/23 08:10 Pulse 91 08/12/23 08:10 Resp 18 08/12/23 08:10 BP 124/70 08/12/23 08:10 Pulse Ox 94 L 08/12/23 08:10 FiO2 Intake & Output 08/11/23 08/12/23 08/12/23 18:59 06:59 18:59 Intake Total 480 590 Output Total 400 800 Balance 80 -210 Intake: Intake, IV Titration 300 Amount DAPTOmycin 400 mg In 100 Sodium Chloride 0.9% 50 ml @ 100 mls/hr IVPB Q48H [facility] Rx#:[id number] Meropenem 1 gm In Sodium 100 Chloride 0.9% 100 ml @ 33 .3 mls/hr IVPB Q12HR@0000 ,1200 [facility] Rx#:[id number] Sodium Ferric Gluconat- 100 Sucrose 125 mg In Sodium Chloride 0.9% 100 ml @ 100 mls/hr IVPB DAILY [facility] Rx#:[id number] Oral 180 590 Output: Urine 400 800 Other: Voiding Method Indwelling Catheter Indwelling Catheter # Voids 0 # Bowel Movements 0 - Exam GENERAL DESCRIPTION: An elderly female lying in bed in no distress RESPIRATORY SYSTEM: Unlabored breathing , decreased breath sounds at bases HEART: S1 S2 regular rate and rhythm , ABDOMEN: Soft , no tenderness EXTREMITIES: Bilateral heel wounds right greater than the left - Labs CBC & Chem 7: 08/12/23 10:20 08/12/23 10:20 Labs: Abnormal Lab Results - Last 24 Hours (Table) 08/11/23 08/11/23 08/12/23 Range/Units 06:26 20:01 10:20 RBC 2.39 L (3.80-5.40) m/uL Hgb 7.5 L (11.4-16.0) gm/dL Hct 24.9 L (34.0-46.0) % MCV 104.4 H (80.0-100.0) fL MCHC 30.3 L (31.0-37.0) g/dL RDW 17.6 H (11.5-15.5) % Lymphocytes # (Manual) 0.34 L (0.90-5.00) X 10*3/uL Eosinophils # (Manual) 0.42 H (0.04-0.35) X 10*3/uL POC Glucose (mg/dL) 138 H (70-110) mg/dL Assessment and Plan (1) Cellulitis Current Visit: Yes Status: Acute Code(s): L03.90 - CELLULITIS, UNSPECIFIED SNOMED Code(s): 686610992 (2) Leukocytosis Current Visit: Yes Status: Acute Code(s): D72.829 - ELEVATED WHITE BLOOD CELL COUNT, UNSPECIFIED SNOMED Code(s): 743994211 (3) Stage II pressure ulcer of left buttock Current Visit: Yes Status: Acute Code(s): L89.322 - PRESSURE ULCER OF LEFT BUTTOCK, STAGE 2 SNOMED Code(s): 06385012352909 (4) Stage II pressure ulcer of left heel Current Visit: Yes Status: Acute Code(s): L89.622 - PRESSURE ULCER OF LEFT HEEL, STAGE 2 SNOMED Code(s): 44370467875776 (5) Stage II pressure ulcer of right buttock Current Visit: Yes Status: Acute Code(s): L89.312 - PRESSURE ULCER OF RIGHT BUTTOCK, STAGE 2 SNOMED Code(s): 39821731002735 (6) MSSA bacteremia Current Visit: Yes Status: Acute Code(s): R78.81 - BACTEREMIA; B95.61 - METHICILLIN SUSCEP STAPH INFCT CAUSING DIS CLASSD ELSWHR SNOMED Code(s): 547911738 Plan: 1patient presented to hospital with tachycardia patient did have a low-grade fever and elevated white count and MSSA bacteremia source is likely dialysis catheter infection which has been discontinued 2-right lower extremity wound care with a dry Aquacel dressing and Daniel wrap for compression 3-to continue with zinc to the excoriated skin to the bilateral gluteal and sacral area keep the area of the pressure 4 blood culture repeated on 07/28/2023 positive however blood cultures on 08/01/2023 has been negative, we will continue the patient on daptomycin to finish treatment for her bacteremia, with the last dose of daptomycin will be 08/15/2023 5- patient also have bilateral heel infected wound, status post debridement of bilateral heel wounds and those cultures are growing drug-resistant Pseudomonas Enterococcus faecalis and Proteus , per discussion with the surgeon at the time of debridement the wound was tracking all the way down to the bone to the right heel, concerning for deep infection and osteomyelitis patient white count has normalized 6-Pt has got PICC and plan is for 6week course of meropenem, and close o utpatient follow-up son at bedside and multiple questions were answered Dictation was produced using [employer] dictation software. please excuse any grammatical, word or spelling errors. Time with Patient: Less than 30
[2023-08-13] MEDS: MEROPENEM 1 GM in SODIUM CHLORIDE 0.9% 100 ML IVPB SCH ×3 (01:41→23:50)
[2023-08-13 08:01] LABS: ALT <6 U/L (4-34); AST 27 U/L (14-36); African American GFR (CKD) 39 (>60 ml/min/1.73 sqM); Albumin 2.1 g/dL (3.5-5.0); Albumin/Globulin Ratio 0.7; Alkaline Phosphatase 56 U/L (38-126); Anion Gap 10 mmol/L; Blood Urea Nitrogen 58 mg/dL (7-17); Calcium 7.9 mg/dL (8.4-10.2); Carbon Dioxide 22 mmol/L (22-30); Chloride 106 mmol/L (98-107); Globulin 2.9 g/dL; Glucose 77 mg/dL (74-99); Non-African American GFR(CKD) 34 (>60 ml/min/1.73 sqM); Potassium 4.7 mmol/L (3.5-5.1); Sodium 138 mmol/L (137-145); Total Bilirubin 0.5 mg/dL (0.2-1.3)
[2023-08-13] MEDS: SODIUM FERRIC GLUCONAT-SUCROSE 125 MG in SODIUM CHLORIDE 0.9% 100 ML IVPB SCH (08:36)
[2023-08-13] MEDS: ASCORBIC ACID 500 MG TAB PO SCH (08:37)
[2023-08-13] MEDS: CHOLESTYRAMINE (WITH SUGAR) 4 GM PACKET PO SCH ×2 (08:37→19:39)
[2023-08-13] MEDS: METOPROLOL TARTRATE 50 MG TAB PO SCH ×2 (08:38→19:39)
[2023-08-13] MEDS: MIDODRINE 5 MG TAB PO SCH ×3 (08:38→17:19)
[2023-08-13] MEDS: SODIUM BICARBONATE TAB 650 MG TAB PO SCH ×2 (08:38→19:39)
[2023-08-13] MEDS: TORSEMIDE 20 MG TAB PO SCH ×2 (08:38→19:40)
[2023-08-13] MEDS: PRAVASTATIN SODIUM 20 MG TAB PO SCH (08:38)
[2023-08-13] MEDS: FLUoxetine HCL 20 MG CAP PO SCH (08:38)
[2023-08-13] MEDS: PANTOPRAZOLE 40 MG TABLET PO SCH (08:39)
[2023-08-13] MEDS: HYDROPHILIC CREAM 180 GM TUBE TOPICAL SCH (08:40)
--- NOTE | 2023-08-13 10:13 | P.PN ---
Subjective Patient is seen for follow-up for acute kidney injury. Renal function is improved Currently off of hemodialysis. Maintained on antibiotics for MSSA bacteremia. Left femoral tunneled catheter was removed. Renal function significantly improved with creatinine down to 1.4 today No significant complaints today Objective - Vital Signs Vital signs: Vital Signs Temp 98.4 F 08/13/23 08:00 Pulse 81 08/13/23 08:00 Resp 16 08/13/23 08:00 BP 112/67 08/13/23 08:40 Pulse Ox 95 08/13/23 01:43 FiO2 Intake & Output 08/12/23 08/13/23 08/13/23 18:59 06:59 18:59 Output Total 1000 1600 Balance -1000 -1600 Weight 77.111 kg Output: Urine 1000 1600 Other: Voiding Method Indwelling Catheter Indwelling Catheter - Exam Patient is awake, comfortable, no acute distress Alert oriented 3 Examination of the heart S1 and S2 Examination of the lungs bilateral breath sounds are heard Abdomen is soft nontender Examination lower extremities shows left leg with 2+ edema, right leg is in brace left leg is wrapped - Labs CBC & Chem 7: 08/12/23 10:20 08/13/23 06:47 Labs: Abnormal Lab Results - Last 24 Hours (Table) 08/12/23 08/12/23 08/13/23 Range/Units 10:20 10: 06:47 RBC 2.39 L (3.80-5.40) m/uL Hgb 7.5 L (11.4-16.0) gm/dL Hct 24.9 L (34.0-46.0) % MCV 104.4 H (80.0-100.0) fL MCHC 30.3 L (31.0-37.0) g/dL RDW 17.6 H (11.5-15.5) % Carbon Dioxide 21 L (22-30) mmol/L BUN 59 H 58 H (7-17) mg/dL Creatinine 1.62 H 1.43 H (0.52-1.04) mg/dL Glucose 115 H (74-99) mg/dL Calcium 8.1 L 7.9 L (8.4-10.2) mg/dL Total Protein 5.0 L (6.3-8.2) g/dL Albumin 2.1 L (3.5-5.0) g/dL Assessment and Plan Assessment: 1. Acute kidney injury secondary to ATN secondary to severe sepsis and rhabdo myolysis. Patient required hemodialysis temporarily and is currently doing well off of dialysis.. Baseline creatinine prior to acute kidney injury episode was near 0.8. Creatinine this admission continues to decrease and is 1.4 today. Establish new baseline renal function. Nonoliguric. Ultrasound from 06/11/2023 showed no hydronephrosis. 2. Staph aureus bacteremia status post removal of groin dialysis catheter. On antibiotics. Catheter tip culture positive for staph aureus. 3. Hyperphosphatemia secondary to acute kidney injury maintained on Renvela. Phosphorus level 4.9. 4. Anemia. Possibly component of chronic kidney disease. On Aranesp. Hemoglobin 6.5 today. Receiving packed RBCs transfusion. 5. Volume overload. Status post diuresis this admission. 6. Metabolic acidosis secondary to acute kidney injury maintained on oral bicarb. 7. Chronic diastolic CHF with mild to moderate mitral regurgitation. 8. Hypokalemia from poor intake and diuresis. Replaced. Improved. Plan: Continue off of dialysis. Continue diuretics, increase dose Continue antibiotics as per ID Continue to avoid nephrotoxic medications. Continue midodrine
--- NOTE | 2023-08-13 10:44 | P.PN ---
Subjective Progress Note Date: 08/13/23 This is an 82-year-old female patient with an extensive medical history who presented to the ER with concerns of atrial flutter with RVR and rash. Patient remains with left femoral dialysis port. Concerns of possible ALLERGIC reaction due to antibiotics patient was given Benadryl and Solu-Medrol. Patient is a poor historian unable to recall recent events. Past medical history includes hyperlipidemia hypertension, end-stage renal disease requiring hemodialysis during previous hospitalization, osteoarthritis, GERD. Chest x-ray completed showing vascular congestion. EKG completed showing sinus tachycardia possible atrial flutter rate 144. White blood cell elevated 21.4, creatinine 2.63, bun 5 4. BNP 9640. Troponin 0.404, 0.7 696 and 1.360. Wound noted to left lower extremity. Patient was started on heparin for elevated troponins and Cardizem. Patient started on IV vancomycin. 2-D echo ordered. Unclear patient has been receiving hemodialysis. Attempting to obtain medical records. Cardiology, nephrology infectious disease and wound care service is consulted. Blood culture ordered. Repeat labs will be ordered. At this time patient is resting comfortably in bed. Current vital signs temp 98.5, heart rate 108, respiratory rate 20, blood pressure 131/72 with a pulse ox 93% on room air On 07/28/2023 patient was seen and examined on the medical floor she is alert and oriented 3 in no apparent distress, she is complaining of severe pain in the lower extremity especially at the time of dressing change, she is also complaining of fatigue and generalized weakness, otherwise she denies any complaints there is no fever or chills no headache or dizziness no chest pain no shortness of breath no cough no nausea or vomiting no abdominal pain no diarrhea no burning with urination no frequency or urgency and no hematuria. On 07/29/2023 patient is alert and oriented 3. Patient had hemodialysis cath removed with tip culture for source of infection. Blood cultures showing presumptive staph aureus. Infectious disease are following. Patient remains on IV antibiotic. White blood cell is trending down 18.8. Current vital signs temp 97.4, heart rate 87, respiratory rate 18, blood pressure 117/74 with a pulse ox 97% on room air On 07/30/2023 patient was seen and examined on the telemetry floor she is alert and oriented 3 in no apparent distress, she is complaining of generalized weakness, otherwise she denies any complaints, vital exam reveals a temperature of 98.4 pulse 71 respiration 14 blood pressure 115/67 pulse ox 95% on room air sodium 136 potassium 4.1 chloride 101 CO2 19 BUN 108 creatinine 2.59, patient is improving gradually, PT and OT consult, she remains on IV antibiotics, will follow closely On 07/31/2023 patient was seen and examined on the telemetry floor she is alert and oriented 3 in no apparent distress she is still complaining of weakness and complaining of low back pain otherwise she denies any complaints there is no fever or chills no headache or dizziness no chest pain no shortness of breath no cough no nausea or vomiting no abdominal pain no diarrhea and no urinary symptoms. Labs today are still pending, yesterday white blood count was still elevated at 20.7 BUN 108 creatinine 2.59 will continue with current antibiotics infectious disease are following On 08/01/2023 patient was seen and examined on the telemetry floor she is alert and oriented 3 in no apparent distress she is complaining of generalized weakness and low back pain, otherwise she denies any complaints there is no fever or chills no headache or dizziness no chest pain no shortness of breath no cough no nausea or vomiting no abdominal pain no diarrhea and no urinary symptoms. Today white blood count is 23.9 hemoglobin 8.5 platelet count 180 BUN 19 9 creatinine 3.2 On 08/02/2023 patient is alert and oriented 3 currently sitting up in bed eating breakfast. Repeat blood culture has been ordered per infectious disease due to continuing leukocytosis. Antibiotics adjusted to nafcillin per ID. Current vital signs temp 97.6, heart rate 77, respiratory rate 18, blood pressure 87/53 with pulse ox 96% on room. Patient denies chest pain or short ness breath. Patient denies nausea vomiting or diarrhea. Patient denies any urinary burning or frequency On 08/03/2023 patient is alert and oriented 3 currently resting in bed eating breakfast. Patient underwent debridement of right heel pressure ulcer with Dr. Miranda yesterday. White blood cell today slightly improved at 18.17. Creatinine 3.1 nephrology.\, infectious disease and wound care service is following. Patient denies chest pain or shortness of breath. Patient denies nausea vomiting or diarrhea. Patient denies any urinary burning or frequency On 08/04/2023 patient was seen and examined on the medical floor, she is alert and oriented 3 she is complaining of bilateral lower extremity pain especially at the time of dressing change and debridement of her wounds. White blood cell today slightly improved at 18.17. Creatinine 3.1 nephrology.\, infectious disease and wound care service is following. Patient denies chest pain or shortness of breath. Patient denies nausea vomiting or diarrhea. Patient denies any urinary burning or frequency On 08/05/2023 patient is alert and oriented 3. Patient remains on IV antibiotics. Current vital signs temp 97.5, heart rate 62, respiratory rate 16, blood pressure 93/62 with pulse ox 97% on room air. Lab work currently pending. Patient denies chest pain or shortness breath. Patient denies nausea vomiting or diarrhea. Patient denies any urinary burning or frequency. On 08/06/2023 patient was seen and examined on the medical floor she is alert and oriented 3 in no apparent distress, she is feeling better today she is sitting up and eating her meal there is no fever or chills no headache or dizziness no chest pain no shortness of breath no cough no nausea or vomiting no abdominal pain no diarrhea and no urinary symptoms. On 08/07/2023 patient was seen and examined on the medical floor is alert and oriented in no apparent distress she is still complaining of generalized weakness and complaining of pain in bilateral lower extremities otherwise she denies any complaints her vital exam reveals a temperature of 98.2 pulse 59 respiration 16 blood pressure 101/60 pulse ox 97% on room air her white blood co unt is 13.2 hemoglobin 7.7 platelet count 363 BUN 74 creatinine 2.42 On 08/08/2023 patient was seen and examined on the medical floor she is alert and oriented in no apparent distress she is still complaining of severe pain in the lower extremities especially at the time of debridement or dressing changes she is also complaining of generalized weakness otherwise she denies any complaints there is no fever or chills no chest pain or shortness of breath no cough , no nausea or vomiting no abdominal pain no diarrhea and no urinary symptoms. On 08/09/2023 patient is alert and oriented 3. Patient reports improvement in his overall discomfort. Patient remains on IV daptomycin and meropenem. Nephrology infectious he services are following. Patient denies chest pain or shortness breath. Patient denies nausea vomiting or diarrhea. Patient denies any urinary frequency On 08/10/2023 patient's alert and oriented 3. Patient had PICC line placement today with plans of IV vancomycin and meropenem upon discharge to [facility] facility. There were tentative plans for EGD and colonoscopy per surgical service but her family and patient it was decided to hold off on scopes at this point continue monitor hemoglobin and make a decision if needed. Hemoglobin today 7.1. White blood cell 12.02. Will order repeat labs for a.m. patient denies chest pain or shortness breath. Patient denies nausea vomiting or diarrhea. Patient denies any urinary burning or frequency On 08/11/2023 patient was seen and examined on the medical floor she is alert and oriented 3 in no apparent distress there is no fever or chills no headache or dizziness no chest pain no shortness of breath no cough no nausea or vomiting no abdominal pain no diarrhea and no urinary symptoms she is still complaining of severe pain in bilateral lower extremities. Orders for Dilaudid renewed, otherwise hemoglobin is still low down to 7 today, iron level is low patient will be given IV iron, will continue to follow closely. On 09/12/2023 patient's alert and oriented 3. Patient remains second dose of IV iron. Patient reports some improvement but still complaining of discomfort awaiting lab results. Current vital signs temp 97.9, heart rate 91. 18, blood pressure 124/70 with pulse ox of 94% on room air. On 08/13/2023 patient was seen and examined on the medical floor she is alert and oriented 3 in no apparent distress there is no fever or chills no headache or dizziness no chest pain no shortness of breath no cough no nausea or vomiting no abdominal pain no diarrhea and no urinary symptoms she is still complaining of severe pain in bilateral lower extremities. Otherwise hemoglobin 7.5 today, iron level is low patient will be given IV iron, will continue to follow closely. Objective - Vital Signs Vital signs: Vital Signs Temp 98.4 F 08/13/23 08:00 Pulse 81 08/13/23 08:00 Resp 16 08/13/23 08:00 BP 112/67 08/13/23 08:40 Pulse Ox 95 08/13/23 01:43 FiO2 Intake & Output 08/12/23 08/13/23 08/13/23 18:59 06:59 18:59 Output Total 1000 1600 Balance -1000 -1600 Weight 77.111 kg Output: Urine 1000 1600 Other: Voiding Method Indwelling Catheter Indwelling Catheter - Exam Head normocephalic Neck supple Lungs diminished bilaterally Heart regular rate and rhythm S1-S2, no rub or gallop Abdomen is soft nontender nondistended positive bowel sounds no hepatosplenomegaly Extremities multiple wounds to lower extremities Neuro alert and orientated to 3 - Labs CBC & Chem 7: 08/12/23 10:20 08/13/23 06:47 Labs: Abnormal Lab Results - Last 24 Hours (Table) 08/12/23 08/12/23 08/13/23 Range/Units 10:20 10: 06:47 RBC 2.39 L (3.80-5.40) m/uL Hgb 7.5 L (11.4-16.0) gm/dL Hct 24.9 L (34.0-46.0) % MCV 104.4 H (80.0-100.0) fL MCHC 30.3 L (31.0-37.0) g/dL RDW 17.6 H (11.5-15.5) % Carbon Dioxide 21 L (22-30) mmol/L BUN 59 H 58 H (7-17) mg/dL Creatinine 1.62 H 1.43 H (0.52-1.04) mg/dL Glucose 115 H (74-99) mg/dL Calcium 8.1 L 7.9 L (8.4-10.2) mg/dL Total Protein 5.0 L (6.3-8.2) g/dL Albumin 2.1 L (3.5-5.0) g/dL Assessment and Plan Assessment: 1. Atrial flutter with RVR 2. Possible ALLERGIC reaction 3. Right lower Cellulitis with multiple wounds 4. Acute renal failure patient was started on hemodialysis during previous admission right femoral dialysis catheter in place. Unclear if patient is still receiving hemodialysis [facility] facility attempting to obtain medical records. Catheter removed and cultured 5. Elevated troponins 6. History of recent admission following fall with rhabdomyolysis 7. Recent urinary tract infection with E. coli bacteremia 8. Recent treatment for suspected C. diff 9. 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 Anemia iron levels low IV iron ordered. Patient declined EGD and colonoscopy per surgical services DVT prophylaxis Lovenox. GI prophylaxis Protonix Cardiology, nephrology, infectious disease and wound care service is consulted Hemodialysis catheter removed and cultured. Status post wound debridement on 08/02/2023 Patient remains on IV antibiotics Repeat blood cultures ordered per ID on 08/01/2023
[2023-08-13] MEDS: SEVELAMER 800 MG TAB PO SCH ×2 (13:40→17:19)
[2023-08-13] MEDS: HYDROmorphone 1 MG/ML 1 ML SYRINGE IVP PRN ×2 (13:58→19:38)
--- NOTE | 2023-08-13 14:06 | P.PN ---
Subjective Progress Note Date: 08/13/23 Principal diagnosis: MSSA bacteremia Patient is a 82-year-old female with a past medical history significant for hypertension hyperlipidemia history of chronic lower extremity venous stasis ulcer with recent admission to the hospital have E. coli bacteremia patient did develop ATN requiring hemodialysis patient was subsequently stabilized and transferred to local halfway for rehabilitation , patient did have improvement her kidney function and did not require any further dialysis however the patient continued to have right groin dialysis catheter no presenting to the hospital with weakness tachycardia and did have a positive blood culture with MSSA. Patient did have a mole of the right groin dialysis catheter by vascular surgery on 07/28/2023, patient did have deployment of bilateral heel wound by Dr. Miranda on 08/02/2023 with a repeat debridement on 08/08/2023 On today's evaluation that is 08/13/2023, the patient remains to be afebrile the patient is breathing comfortably on room air and not requiring supplemental oxygen, the patient denies chest pain and no significant cough, patient denies abdominal pain and no nausea/vomiting or diarrhea Patient did have white count has normalized to 8.6 as of yesterday , creatinine is down to 1.43, catheter tip positive blood culture repeated on 07/28/2023 also positive, blood culture from 08/01/2023 so far negative cultures obtained from heel wound were obtained from the micro-lab after multiple calls did grew drug- resistant Pseudomonas Proteus and enterococcus faecalis Objective - Vital Signs Vital signs: Vital Signs Temp 98.7 F 08/13/23 13:35 Pulse 72 08/13/23 13:35 Resp 20 08/13/23 13:35 BP 96/64 08/13/23 13:35 Pulse Ox 95 08/13/23 01:43 FiO2 Intake & Output 08/12/23 08/13/23 08/13/23 18:59 06:59 18:59 Output Total 1000 1600 Balance -1000 -1600 Weight 77.111 kg Output: Urine 1000 1600 Other: Voiding Method Indwelling Catheter Indwelling Catheter Indwelling Catheter - Exam GENERAL DESCRIPTION: An elderly female lying in bed in no distress RESPIRATORY SYSTEM: Unlabored breathing , decreased breath sounds at bases HEART: S1 S2 regular rate and rhythm , ABDOMEN: Soft , no tenderness EXTREMITIES: Bilateral heel wounds currently dressed, no drainage - Labs CBC & Chem 7: 08/12/23 10:20 08/13/23 06:47 Labs: Abnormal Lab Results - Last 24 Hours (Table) 08/13/23 Range/Units 06:47 BUN 58 H (7-17) mg/dL Creatinine 1.43 H (0.52-1.04) mg/dL Calcium 7.9 L (8.4-10.2) mg/dL Total Protein 5.0 L (6.3-8.2) g/dL Albumin 2.1 L (3.5-5.0) g/dL Assessment and Plan (1) Cellulitis Current Visit: Yes Status: Acute Code(s): L03.90 - CELLULITIS, UNSPECIFIED SNOMED Code(s): 171365414 (2) Leukocytosis Current Visit: Yes Status: Acute Code(s): D72.829 - ELEVATED WHITE BLOOD CELL COUNT, UNSPECIFIED SNOMED Code(s): 026880235 (3) Stage II pressure ulcer of left buttock Current Visit: Yes Status: Acute Code(s): L89.322 - PRESSURE ULCER OF LEFT BUTTOCK, STAGE 2 SNOMED Code(s): 23653317341913 (4) Stage II pressure ulcer of left heel Current Visit: Yes Status: Acute Code(s): L89.622 - PRESSURE ULCER OF LEFT HEEL, STAGE 2 SNOMED Code(s): 29708550213593 (5) Stage II pressure ulcer of right buttock Current Visit: Yes Status: Acute Code(s): L89.312 - PRESSURE ULCER OF RIGHT BUTTOCK, STAGE 2 SNOMED Code(s): 01837756473243 (6) MSSA bacteremia Current Visit: Yes Status: Acute Code(s): R78.81 - BACTEREMIA; B95.61 - METHICILLIN SUSCEP STAPH INFCT CAUSING DIS CLASSD ELSWHR SNOMED Code(s): 882325853 Plan: 1patient presented to hospital with tachycardia patient did have a low-grade fever and elevated white count and MSSA bacteremia source is likely dialysis catheter infection which has been discontinued 2-right lower extremity wound care with a dry Aquacel dressing and Daniel wrap for compression 3-to continue with zinc to the excoriated skin to the bilateral gluteal and sacral area keep the area of the pressure 4 blood culture repeated on 07/28/2023 positive however blood cultures on 08/01/2023 has been negative, we will continue the patient on daptomycin to finish treatment for her bacteremia, with the last dose of daptomycin will be 08/15/2023 5- patient also have bilateral heel infected wound, status post debridement of bilateral heel wounds and those cultures are growing drug-resistant Pseudomonas Enterococcus faecalis and Proteus , per discussion with the surgeon at the time of debridement the wound was tracking all the way down to the bone to the right heel, concerning for deep infection and osteomyelitis patient white count has normalized 6-Pt has got PICC 7- Plan is for 6week course of meropenem, and daptomycin can be discontinued after 08/15/23 dose son at bedside and multiple questions were answered Dictation was produced using [employer] dictation software. please excuse any grammatical, word or spelling errors. Time with Patient: Less than 30
--- NOTE | 2023-08-13 15:08 | P.PN ---
Subjective Progress Note Date: 08/13/23 CHIEF COMPLAINT: Anemia HISTORY OF PRESENT ILLNESS: The patient is a 82-year-old female with anemia with hemoglobin 7.0-7.1. She reports having debridement of the legs that caused bleeding. She reports being given blood transfusions as a result. No signs of bleeding today. Bilateral legs were re-wrapped. ROS: No reports of nausea and vomiting. No fevers or chills. No new chest pain. PHYSICAL EXAM: VITAL SIGNS: Reviewed CONSTITUTIONAL: Well developed and in no acute distress. EYES: Conjuctivae without sclera icterus. Extraocular movements grossly intact. HEAD, EARS, NOSE, THROAT: Moist buccal mucosa. Head is atraumatic, normocephalic. Hears conversational speech. No nasal drainage. RESPIRATORY: Non-labored respirations and equal bilateral excursions. CARDIOVASCULAR: Palpable 2+ radial pulses. ABDOMEN: Obese MUSCULOSKELETAL: Bilateral leg and foot wrapped with SPENSER. Hyperkerotic toenails. SKIN: Good skin turgor. Well perfused. NEUROLOGIC: Cranial nerves II through XII grossly intact. No focal or lateralizing signs. PSYCH: Appropriate affect. Alert and oriented to person, place and time. CLINICAL LABS: Reviewed. Hemoglobin 7.5, anemia ASSESSMENT: 1. Anemia PLAN: 1. Monitor Hgb 2. Hold on endoscopies at this time. Objective - Vital Signs Vital signs: Vital Signs Temp 98.4 F 08/13/23 08:00 Pulse 81 08/13/23 08:00 Resp 16 08/13/23 08:00 BP 112/67 08/13/23 08:40 Pulse Ox 95 08/13/23 01:43 FiO2 Intake & Output 08/12/23 08/13/23 08/13/23 18:59 06:59 18:59 Output Total 1000 1600 Balance -1000 -1600 Weight 77.111 kg Output: Urine 1000 1600 Other: Voiding Method Indwelling Catheter Indwelling Catheter Indwelling Catheter - Labs CBC & Chem 7: 08/12/23 10:20 08/13/23 06:47 Labs: Abnormal Lab Results - Last 24 Hours (Table) 08/12/23 08/13/23 Range/Units 10:20 06:47 Carbon Dioxide 21 L (22-30) mmol/L BUN 59 H 58 H (7-17) mg/dL Creatinine 1.62 H 1.43 H (0.52-1.04) mg/dL Glucose 115 H (74-99) mg/dL Calcium 8.1 L 7.9 L (8.4-10.2) mg/dL Total Protein 5.0 L (6.3-8.2) g/dL Albumin 2.1 L (3.5-5.0) g/dL
[2023-08-13] MEDS: MONTELUKAST 10 MG TAB PO SCH (19:39)
[2023-08-14] MEDS: CHOLESTYRAMINE (WITH SUGAR) 4 GM PACKET PO SCH ×2 (08:51→20:08)
[2023-08-14] MEDS: MIDODRINE 5 MG TAB PO SCH ×3 (08:51→17:20)
[2023-08-14] MEDS: METOPROLOL TARTRATE 50 MG TAB PO SCH ×2 (08:51→20:07)
[2023-08-14] MEDS: PANTOPRAZOLE 40 MG TABLET PO SCH (08:51)
[2023-08-14] MEDS: FLUoxetine HCL 20 MG CAP PO SCH (08:51)
[2023-08-14] MEDS: TORSEMIDE 20 MG TAB PO SCH ×2 (08:51→20:07)
[2023-08-14] MEDS: ASCORBIC ACID 500 MG TAB PO SCH (08:51)
[2023-08-14] MEDS: PRAVASTATIN SODIUM 20 MG TAB PO SCH (08:51)
[2023-08-14] MEDS: ERGOCALCIFEROL 1,250 MCG (50,000 IU) CAPSULE PO SCH (08:51)
[2023-08-14] MEDS: SODIUM FERRIC GLUCONAT-SUCROSE 125 MG in SODIUM CHLORIDE 0.9% 100 ML IVPB SCH (08:51)
[2023-08-14] MEDS: SODIUM BICARBONATE TAB 650 MG TAB PO SCH ×2 (08:51→20:07)
[2023-08-14] MEDS: HYDROPHILIC CREAM 180 GM TUBE TOPICAL SCH (08:52)
--- NOTE | 2023-08-14 10:05 | P.PN ---
Subjective Progress Note Date: 08/14/23 This is an 82-year-old female patient with an extensive medical history who presented to the ER with concerns of atrial flutter with RVR and rash. Patient remains with left femoral dialysis port. Concerns of possible ALLERGIC reaction due to antibiotics patient was given Benadryl and Solu-Medrol. Patient is a poor historian unable to recall recent events. Past medical history includes hyperlipidemia hypertension, end-stage renal disease requiring hemodialysis during previous hospitalization, osteoarthritis, GERD. Chest x-ray completed showing vascular congestion. EKG completed showing sinus tachycardia possible atrial flutter rate 144. White blood cell elevated 21.4, creatinine 2.63, bun 54. BNP 9640. Troponin 0.404, 0.7 696 and 1.360. Wound noted to left lower extremity. Patient was started on heparin for elevated troponins and Cardizem. Patient started on IV vancomycin. 2-D echo ordered. Unclear patient has been receiving hemodialysis. Attempting to obtain medical records. Cardiology, nephrology infectious disease and wound care service is consulted. Blood culture ordered. Repeat labs will be ordered. At this time patient is resting comfortably in bed. Current vital signs temp 98.5, heart rate 108, respiratory rate 20, blood pressure 131/72 with a pulse ox 93% on room air On 07/28/2023 patient was seen and examined on the medical floor she is alert and oriented 3 in no apparent distress, she is complaining of severe pain in the lower extremity especially at the time of dressing change, she is also complaining of fatigue and generalized weakness, otherwise she denies any complaints there is no fever or chills no headache or dizziness no chest pain no shortness of breath no cough no nausea or vomiting no abdominal pain no diarrhea no burning with urination no frequency or urgency and no hematuria. On 07/29/2023 patient is alert and oriented 3. Patient had hemodialysis cath removed with tip culture for source of infection. Blood cultures showing presumptive staph aureus. Infectious disease are following. Patient remains on IV antibiotic. White blood cell is trending down 18.8. Current vital signs temp 97.4, heart rate 87, respiratory rate 18, blood pressure 117/74 with a pulse ox 97% on room air On 07/30/2023 patient was seen and examined on the telemetry floor she is alert and oriented 3 in no apparent distress, she is complaining of generalized weakness, otherwise she denies any complaints, vital exam reveals a temperature of 98.4 pulse 71 respiration 14 blood pressure 115/67 pulse ox 95% on room air sodium 136 potassium 4.1 chloride 101 CO2 19 BUN 108 creatinine 2.59, patient is improving gradually, PT and OT consult, she remains on IV antibiotics, will follow closely On 07/31/2023 patient was seen and examined on the telemetry floor she is alert and oriented 3 in no apparent distress she is still complaining of weakness and complaining of low back pain otherwise she denies any complaints there is no fever or chills no headache or dizziness no chest pain no shortness of breath no cough no nausea or vomiting no abdominal pain no diarrhea and no urinary symptoms. Labs today are still pending, yesterday white blood count was still elevated at 20.7 BUN 108 creatinine 2.59 will continue with current antibiotics infectious disease are following On 08/01/2023 patient was seen and examined on the telemetry floor she is alert and oriented 3 in no apparent distress she is complaining of generalized weakness and low back pain, otherwise she denies any complaints there is no fever or chills no headache or dizziness no chest pain no shortness of breath no cough no nausea or vomiting no abdominal pain no diarrhea and no urinary symptoms. Today white blood count is 23.9 hemoglobin 8.5 platelet count 180 BUN 19 9 creatinine 3.2 On 08/02/2023 patient is alert and oriented 3 currently sitting up in bed eating breakfast. Repeat blood culture has been ordered per infectious disease due to continuing leukocytosis. Antibiotics adjusted to nafcillin per ID. Current vital signs temp 97.6, heart rate 77, respiratory rate 18, blood pressure 87/53 with pulse ox 96% on room. Patient denies chest pain or shortn ess breath. Patient denies nausea vomiting or diarrhea. Patient denies any urinary burning or frequency On 08/03/2023 patient is alert and oriented 3 currently resting in bed eating breakfast. Patient underwent debridement of right heel pressure ulcer with Dr. Miranda yesterday. White blood cell today slightly improved at 18.17. Creatinine 3.1 nephrology.\, infectious disease and wound care service is following. Patient denies chest pain or shortness of breath. Patient denies nausea vomiting or diarrhea. Patient denies any urinary burning or frequency On 08/04/2023 patient was seen and examined on the medical floor, she is alert and oriented 3 she is complaining of bilateral lower extremity pain especially at the time of dressing change and debridement of her wounds. White blood cell today slightly improved at 18.17. Creatinine 3.1 nephrology.\, infectious disease and wound care service is following. Patient denies chest pain or shortness of breath. Patient denies nausea vomiting or diarrhea. Patient denies any urinary burning or frequency On 08/05/2023 patient is alert and oriented 3. Patient remains on IV antibiotics. Current vital signs temp 97.5, heart rate 62, respiratory rate 16, blood pressure 93/62 with pulse ox 97% on room air. Lab work currently pending. Patient denies chest pain or shortness breath. Patient denies nausea vomiting or diarrhea. Patient denies any urinary burning or frequency. On 08/06/2023 patient was seen and examined on the medical floor she is alert and oriented 3 in no apparent distress, she is feeling better today she is sitting up and eating her meal there is no fever or chills no headache or dizziness no chest pain no shortness of breath no cough no nausea or vomiting no abdominal pain no diarrhea and no urinary symptoms. On 08/07/2023 patient was seen and examined on the medical floor is alert and oriented in no apparent distress she is still complaining of generalized weakness and complaining of pain in bilateral lower extremities otherwise she denies any complaints her vital exam reveals a temperature of 98.2 pulse 59 respiration 16 blood pressure 101/60 pulse ox 97% on room air her white blood count is 13.2 hemoglobin 7.7 platelet count 363 BUN 74 creatinine 2.42 On 08/08/2023 patient was seen and examined on the medical floor she is alert and oriented in no apparent distress she is still complaining of severe pain in the lower extremities especially at the time of debridement or dressing changes she is also complaining of generalized weakness otherwise she denies any complaints there is no fever or chills no chest pain or shortness of breath no cough , no nausea or vomiting no abdominal pain no diarrhea and no urinary symptoms. On 08/09/2023 patient is alert and oriented 3. Patient reports improvement in his overall discomfort. Patient remains on IV daptomycin and meropenem. N ephrology infectious he services are following. Patient denies chest pain or shortness breath. Patient denies nausea vomiting or diarrhea. Patient denies any urinary frequency On 08/10/2023 patient's alert and oriented 3. Patient had PICC line placement today with plans of IV vancomycin and meropenem upon discharge to [facility] facility. There were tentative plans for EGD and colonoscopy per surgical service but her family and patient it was decided to hold off on scopes at this point continue monitor hemoglobin and make a decision if needed. Hemoglobin today 7.1. White blood cell 12.02. Will order repeat labs for a.m. patient denies chest pain or shortness breath. Patient denies nausea vomiting or diarrhea. Patient denies any urinary burning or frequency On 08/11/2023 patient was seen and examined on the medical floor she is alert and oriented 3 in no apparent distress there is no fever or chills no headache or dizziness no chest pain no shortness of breath no cough no nausea or vomiting no abdominal pain no diarrhea and no urinary symptoms she is still complaining of severe pain in bilateral lower extremities. Orders for Dilaudid renewed, otherwise hemoglobin is still low down to 7 today, iron level is low patient will be given IV iron, will continue to follow closely. On 09/12/2023 patient's alert and oriented 3. Patient remains second dose of IV iron. Patient reports some improvement but still complaining of discomfort awaiting lab results. Current vital signs temp 97.9, heart rate 91. 18, blood pressure 124/70 with pulse ox of 94% on room air. On 08/13/2023 patient was seen and examined on the medical floor she is alert and oriented 3 in no apparent distress there is no fever or chills no headache or dizziness no chest pain no shortness of breath no cough no nausea or vomiting no abdominal pain no diarrhea and no urinary symptoms she is still complaining of severe pain in bilateral lower extremities. Otherwise hemoglobin 7.5 today, iron level is low patient will be given IV iron, will continue to follow closely. On 08/14/2023 patient's alert and oriented 3. Patient reports improvement with overall pain. Hemoglobin pending discharge planning in progress. Current vital signs temp 97.9, heart rate 74, respiratory 18, blood pressure 113/69 with pulse ox 95% on room air Objective - Vital Signs Vital signs: Vital Signs Temp 97.9 F 08/14/23 07:15 Pulse 74 08/14/23 07:15 Resp 18 08/14/23 07:15 BP 113/69 08/14/23 07:15 Pulse Ox 95 08/14/23 07:15 FiO2 Intake & Output 08/13/23 08/14/23 08/14/23 18:59 06:59 18:59 Intake Total 240 Output Total 1200 1200 Balance -960 -1200 Intake: Oral 240 Output: Urine 1200 1200 Other: Voiding Method Indwelling Catheter Indwelling Catheter - Exam Head normocephalic Neck supple Lungs diminished bilaterally Heart regular rate and rhythm S1-S2, no rub or gallop Abdomen is soft nontender nondistended positive bowel sounds no hepatosplenomegaly Extremities multiple wounds to lower extremities Neuro alert and orientated to 3 - Labs CBC & Chem 7: 08/12/23 10:20 08/13/23 06:47 Assessment and Plan Assessment: 1. Atrial flutter with RVR 2. Possible ALLERGIC reaction 3. Right lower Cellulitis with multiple wounds 4. Acute renal failure patient was started on hemodialysis during previous admission right femoral dialysis catheter in place. Unclear if patient is still receiving hemodialysis [facility] facility attempting to obtain medical records. Catheter removed and cultured 5. Elevated troponins 6. History of recent admission following fall with rhabdomyolysis 7. Recent urinary tract infection with E. coli bacteremia 8. Recent treatment for suspected C. diff 9. 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 Anemia requiring blood transfusion. Patient received 1 unit PRBCs on 08/09 surgical services were consulted and recommended EGD and colonoscopy for further discussion with family it was determined that family patient would like to hold off on soaks at this time we'll continue to monitor DVT prophylaxis Lovenox. GI prophylaxis Protonix Cardiology, nephrology, infectious disease and wound care service is consulted Hemodialysis catheter removed and cultured. Status post wound debridement on 08/02/2023 Patient remains on IV antibiotics Repeat blood cultures ordered per ID on 08/01/2023 PICC line placement on 08/09/2023
--- NOTE | 2023-08-14 11:27 | P.PN ---
Subjective Patient is seen for follow-up for acute kidney injury. Renal function is improved Currently off of hemodialysis. Maintained on antibiotics for MSSA bacteremia. Left femoral tunneled catheter was removed. Renal function significantly improved with creatinine down to 1.4 yesterday. Torsemide increased yesterday. No significant complaints today Objective - Vital Signs Vital signs: Vital Signs Temp 97.9 F 08/14/23 07:15 Pulse 74 08/14/23 07:15 Resp 18 08/14/23 07:15 BP 113/69 08/14/23 07:15 Pulse Ox 95 08/14/23 07:15 FiO2 Intake & Output 08/13/23 08/14/23 08/14/23 18:59 06:59 18:59 Intake Total 240 Output Total 1200 1200 Balance -960 -1200 Intake: Oral 240 Output: Urine 1200 1200 Other: Voiding Method Indwelling Catheter Indwelling Catheter - Exam Patient is awake, comfortable, no acute distress Alert oriented 3 Examination of the heart S1 and S2 Examination of the lungs bilateral breath sounds are heard Abdomen is soft nontender Examination lower extremities shows left leg with 2+ edema, right leg is in brace left leg is wrapped - Labs CBC & Chem 7: 08/12/23 10:20 08/13/23 06:47 Assessment and Plan Assessment: 1. Acute kidney injury secondary to ATN secondary to severe sepsis and rhabdomyolysis. Patient required hemodialysis temporarily and is currently do ing well off of dialysis.. Baseline creatinine prior to acute kidney injury episode was near 0.8. Creatinine this admission continues to decrease and is 1.4 yesterday. Establish new baseline renal function. Nonoliguric. Ultrasound from 06/11/2023 showed no hydronephrosis. 2. Staph aureus bacteremia status post removal of groin dialysis catheter. On antibiotics. Catheter tip culture positive for staph aureus. 3. Hyperphosphatemia secondary to acute kidney injury maintained on Renvela. Phosphorus level 4.9. 4. Anemia. Possibly component of chronic kidney disease. On Aranesp. Hemog lobin 6.5 today. Receiving packed RBCs transfusion. 5. Volume overload. Improved. Maintained on torsemide. 6. Metabolic acidosis secondary to acute kidney injury maintained on oral bicarb. 7. Chronic diastolic CHF with mild to moderate mitral regurgitation. 8. Hypokalemia from poor intake and diuresis. Replaced. Improved. Plan: Continue off of dialysis. Continue torsemide Continue antibiotics as per ID Continue to avoid nephrotoxic medications. Continue midodrine
[2023-08-14] MEDS: SEVELAMER 800 MG TAB PO SCH ×2 (14:00→17:21)
[2023-08-14] MEDS: MEROPENEM 1 GM in SODIUM CHLORIDE 0.9% 100 ML IVPB SCH ×2 (14:00→23:41)
--- NOTE | 2023-08-14 15:16 | P.PN ---
Subjective Progress Note Date: 08/14/23 CHIEF COMPLAINT: Anemia HISTORY OF PRESENT ILLNESS: The patient is a 82-year-old female with anemia with hemoglobin 7.0-7.1. She reports having debridement of the legs that caused bleeding. No further bleeding. She is having bowel movements. ROS: No reports of nausea and vomiting. No fevers or chills. No new chest pain. Bilateral venous stasis disease PHYSICAL EXAM: VITAL SIGNS: Reviewed CONSTITUTIONAL: Well developed and in no acute distress. EYES: Conjuctivae without sclera icterus. Extraocular movements grossly intact. HEAD, EARS, NOSE, THROAT: Moist buccal mucosa. Head is atraumatic, normocephalic. Hears conversational speech. No nasal drainage. RESPIRATORY: Non-labored respirations and equal bilateral excursions. CARDIOVASCULAR: Palpable 2+ radial pulses. ABDOMEN: Obese MUSCULOSKELETAL: Bilateral leg and foot wrapped with SPENSER. Hyperkerotic toenails. SKIN: Good skin turgor. Well perfused. NEUROLOGIC: Cranial nerves II through XII grossly intact. No focal or lateraliz ing signs. PSYCH: Appropriate affect. Alert and oriented to person, place and time. CLINICAL LABS: Reviewed. Pending new labs. ASSESSMENT: 1. Anemia 2. Bilateral venous stasis disease. PLAN: 1. Recommend check patient weight for accurate medication adjustment. Patient appears to weigh more than stated weight. 2. Ordering CBC for monitoring anemia. Objective - Vital Signs Vital signs: Vital Signs Temp 98.6 F 08/14/23 12:42 Pulse 78 08/14/23 12:42 Resp 18 08/14/23 12:42 BP 113/67 08/14/23 12:42 Pulse Ox 96 08/14/23 12:42 FiO2 Intake & Output 08/13/23 08/14/23 08/14/23 18:59 06:59 18:59 Intake Total 240 Output Total 1200 1200 1000 Balance -960 -1200 -1000 Intake: Oral 240 Output: Urine 1200 1200 1000 Other: Voiding Method Indwelling Catheter Indwelling Catheter Indwelling Catheter # Bowel Movements 1 - Labs CBC & Chem 7: 08/12/23 10:20 08/13/23 06:47
[2023-08-14] MEDS: MONTELUKAST 10 MG TAB PO SCH (20:07)
[2023-08-14] MEDS: HYDROmorphone 1 MG/ML 1 ML SYRINGE IVP PRN (20:19)
[2023-08-15] MEDS: HYDROmorphone 1 MG/ML 1 ML SYRINGE IVP PRN ×3 (05:50→17:46)
[2023-08-15] MEDS: PANTOPRAZOLE 40 MG TABLET PO SCH (08:01)
[2023-08-15] MEDS: PRAVASTATIN SODIUM 20 MG TAB PO SCH (08:01)
[2023-08-15] MEDS: SODIUM BICARBONATE TAB 650 MG TAB PO SCH (08:01)
[2023-08-15] MEDS: MIDODRINE 5 MG TAB PO SCH ×3 (08:01→17:31)
[2023-08-15] MEDS: FLUoxetine HCL 20 MG CAP PO SCH (08:01)
[2023-08-15] MEDS: ASCORBIC ACID 500 MG TAB PO SCH (08:01)
[2023-08-15] MEDS: TORSEMIDE 20 MG TAB PO SCH (08:02)
[2023-08-15] MEDS: METOPROLOL TARTRATE 50 MG TAB PO SCH (08:03)
[2023-08-15] MEDS: CHOLESTYRAMINE (WITH SUGAR) 4 GM PACKET PO SCH (08:03)
[2023-08-15] MEDS: HYDROPHILIC CREAM 180 GM TUBE TOPICAL SCH (08:04)
[2023-08-15] MEDS: SODIUM FERRIC GLUCONAT-SUCROSE 125 MG in SODIUM CHLORIDE 0.9% 100 ML IVPB SCH (09:01)
[2023-08-15] MEDS: DARBEPOETIN ALFA 40 MCG/0.4 ML SYRINGE SQ SCH (09:04)
[2023-08-15 11:34] LABS: ALT 11 U/L (8-44); AST 23 U/L (13-35); Albumin 2.2 d/dL (3.8-4.9); Albumin/Globulin Ratio 0.81 Ratio (1.60-3.17); Alkaline Phosphatase 58 U/L (41-126); BUN/Creat Ratio 33.73 Ratio (12.00-20.00); Blood Urea Nitrogen 50.6 mg/dL (9.0-27.0); Calcium 8.2 mg/dL (8.7-10.3); Carbon Dioxide 24.9 mmol/L (21.6-31.8); Chloride 105 mmol/L (96-109); Globulin 2.7 d/dL (1.6-3.3); Glucose 82 mg/dL (70-110); Potassium 4.3 mmol/L (3.5-5.5); Sodium 142 mmol/L (135-145); Total Bilirubin <0.2 mg/dL (0.3-1.2); Total Protein 4.9 d/dL (6.2-8.2)
[2023-08-15 11:46] LABS: Basophils # (A) 0.06 X 10*3/uL (0.00-0.10); Basophils % (A) 0.7 %; Eosinophils # (A) 1.27 X 10*3/uL (0.04-0.35); Eosinophils % (A) 15.2 %; HCT 26.1 % (37.2-46.3); HGB 7.6 d/dL (12.0-15.0); Lymphocytes # (A) 1.04 X 10*3/uL (0.90-5.00); Lymphocytes % (A) 12.4 %; MCH 31.1 pg (27.0-32.0); MCHC 29.1 d/dL (32.0-37.0); Mean Platelet Volume 10.1 FL (9.5-12.2); Monocytes % (A) 8.4 %; NRBC Per 100 WBC 0 X 10*3/uL (0.00-0.01); Neutrophils # (A) 5.15 X 10*3/uL (1.80-7.70); Neutrophils % (A) 61.5 %; Platelet Count 224 X 10*3/uL (140-440); RBC 2.44 X 10*6/uL (4.10-5.20); WBC 8.37 X 10*3/uL (4.50-10.00)
[2023-08-15] MEDS: SEVELAMER 800 MG TAB PO SCH ×2 (12:57→17:46)
[2023-08-15] MEDS: MEROPENEM 1 GM in SODIUM CHLORIDE 0.9% 100 ML IVPB SCH (12:57)
--- NOTE | 2023-08-15 13:06 | P.PN ---
Subjective Patient is seen in follow for acute kidney injury. Nonoliguric. Renal function stable. No vomiting or diarrhea. No chest pain or shortness of breath. Blood pressure stable. No active complaints. Oral intake fair. On Demadex. Vital signs are stable. General: No acute distress. HEENT: Head exam is unremarkable. LUNGS: No audible rhonchi or wheezes. HEART: Rate and Rhythm are regular. ABDOMEN: Nontender. EXTREMITITES: 1+ edema. Lower extremities wrapped. Objective - Vital Signs Vital signs: Vital Signs Temp 98.3 F 08/15/23 12:40 Pulse 87 08/15/23 12:40 Resp 18 08/15/23 12:40 BP 112/71 08/15/23 12:40 Pulse Ox 97 08/15/23 12:40 FiO2 Intake & Output 08/14/23 08/15/23 08/15/23 18:59 06:59 18:59 Intake Total 200 Output Total 1000 1800 Balance -1000 -1600 Weight 91.5 kg 91.5 kg Intake: Oral 200 Output: Urine 1000 1800 Other: Voiding Method Indwelling Catheter Indwelling Catheter Indwelling Catheter # Bowel Movements 1 - Labs CBC & Chem 7: 08/15/23 06:10 08/15/23 06:10 Labs: Abnormal Lab Results - Last 24 Hours (Table) 08/15/23 08/15/23 Range/Units 06:10 06:10 RBC 2.44 L (4.10-5.20) X 10*6/uL Hgb 7.6 L (12.0-15.0) d/dL Hct 26.1 L (37.2-46.3) % MCV 107.0 H (80.0-97.0) FL MCHC 29.1 L (32.0-37.0) d/dL RDW 18.0 H (11.5-14.5) % Eosinophils # 1.27 H (0.04-0.35) X 10*3/uL Anion Gap 12.10 H (4.00-12.00) mmol/L BUN 50.6 H (9.0-27.0) mg/dL Est GFR (CKD-EPI) 34 L (>=60) BUN/Creatinine Ratio 33.73 H (12.00-20.00) Ratio Calcium 8.2 L (8.7-10.3) mg/dL Total Bilirubin <0.2 L (0.3-1.2) mg/dL Total Protein 4.9 L (6.2-8.2) d/dL Albumin 2.2 L (3.8-4.9) d/dL Albumin/Globulin Ratio 0.81 L (1.60-3.17) Ratio Assessment and Plan Plan: Assessment: 1. Acute kidney injury secondary to ATN secondary to severe sepsis and rhabdomyolysis. Patient required hemodialysis but now discontinued due to recovery of renal function. Baseline creatinine prior to acute kidney injury episode was near 0.8. Renal function improved with creatinine stable at 1.5 today. Establish new baseline renal function. Nonoliguric. Ultrasound from 06/11/2023 showed no hydronephrosis. 2. Staph aureus bacteremia status post removal of groin dialysis catheter. On antibiotics. Catheter tip culture positive for staph aureus. 3. Hyperphosphatemia secondary to acute kidney injury maintained on Renvela. Phosphorus level 4.9 dated 08/07/2023. 4. Anemia. Possibly component of chronic kidney disease. On Aranesp. Iron replete - iron saturation 25.9% dated 08/10/2023. 5. Volume overload. Improving with diuresis. 6. Metabolic acidosis secondary to acute kidney injury maintained on oral bicarb. Better. 7. Chronic diastolic CHF with mild to moderate mitral regurgitation. 8. Hypokalemia from poor intake and diuresis. Replaced. Improved. Plan: Encouraged oral intake. Maintain Demadex. Maintain midodrine. Hold for systolic blood pressure greater than 110. Continue to monitor renal function and urine output. Repeat phosphorus level.
[2023-08-15 13:12] VITALS: BP 112/71; PULSE 87; RESP 18; TEMP 98.3
--- NOTE | 2023-08-15 13:35 | P.DS ---
Providers Date of admission: 07/27/23 04:05 Expected date of discharge: 08/15/23 Attending physician: Ten Guerrero Consults: 07/27/23 04:03 Consult Physician Routine Consulting Provider: Bradly Almodovar Consult Reason/Comments: Atrial flutter with RVR Do you want consulting provider notified?: Yes Consult Physician Routine Consulting Provider: Shirley Francis Consult Reason/Comments: ESRD Do you want consulting provider notified?: Yes 07/27/23 04:34 Consult Physician Routine Consulting Provider: Caleb Babin Consult Reason/Comments: Leukocytosis Do you want consulting provider notified?: Yes 07/28/23 13:09 Consult Physician Routine Consulting Provider: Braydon Miranda Consult Reason/Comments: dialysis cath removal, sent tip for culture Do you want consulting provider notified?: Yes 08/09/23 13:24 Consult Physician Routine Consulting Provider: Jomar Bhatia Consult Reason/Comments: possible GI bleed Do you want consulting provider notified?: Yes Primary care physician: Ten Guerrero [facility] Course: Diagnosis on discharge: 1. Atrial flutter with RVR 2. Possible ALLERGIC reaction, with skin rash improved 3. Right lower Cellulitis with multiple wounds 4. Acute renal failure patient was started on hemodialysis during previous admission right femoral dialysis catheter in place. Unclear if patient is still receiving hemodialysis [facility] facility attempting to obtain medical records. Catheter removed and cultured 5. Elevated troponins, no evidence of acute KS per cardiology 6. History of recent admission following fall with rhabdomyolysis 7. Recent urinary tract infection with E. coli bacteremia 8. Recent treatment for suspected C. diff 9. 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 Anemia iron levels low IV iron ordered. Patient declined EGD and colonoscopy per surgical services. During this admission patient received 1 unit of red blood cells and 3 doses of IV iron. Recheck CBC closely as outpatient and treat with iron as needed. 11. Sepsis with positive blood cultures for Staphylococcus, methicillin sensitive, related to dialysis catheter which was removed. Hospital course: This is an 82-year-old female patient with an extensive medical history who presented to the ER with concerns of atrial flutter with RVR and rash. Patient remains with left femoral dialysis port. Concerns of possible ALLERGIC reaction due to antibiotics patient was given Benadryl and Solu-Medrol. Patient is a poor historian unable to recall recent events. Past medical history includes hyperlipidemia hypertension, end-stage renal disease requiring hemodialysis during previous hospitalization, osteoarthritis, GERD. Chest x-ray completed showing vascular congestion. EKG completed showing sinus tachycardia possible atrial flutter rate 144. White blood cell elevated 21.4, creatinine 2.63, bun 54. BNP 9640. Troponin 0.404, 0.7 696 and 1.360. Wound noted to left lower extremity. Patient was started on heparin for elevated troponins and Cardizem. Patient started on IV vancomycin. 2-D echo ordered. Unclear patient has been receiving hemodialysis. Attempting to obtain medical records. Cardiology, nephrology infectious disease and wound care service is consulted. Blood culture ordered. Repeat labs will be ordered. At this time patient is resting comfortably in bed. Current vital signs temp 98.5, heart rate 108, respiratory rate 20, blood pressure 131/72 with a pulse ox 93% on room air On 07/28/2023 patient was seen and examined on the medical floor she is alert and oriented 3 in no apparent distress, she is complaining of severe pain in the lower extremity especially at the time of dressing change, she is also complaining of fatigue and generalized weakness, otherwise she denies any complaints there is no fever or chills no headache or dizziness no chest pain no shortness of breath no cough no nausea or vomiting no abdominal pain no diarrhea no burning with urination no frequency or urgency and no hematuria. On 07/29/2023 patient is alert and oriented 3. Patient had hemodialysis cath removed with tip culture for source of infection. Blood cultures showing presumptive staph aureus. Infectious disease are following. Patient remains on IV antibiotic. White blood cell is trending down 18.8. Current vital signs temp 97.4, heart rate 87, respiratory rate 18, blood pressure 117/74 with a pulse ox 97% on room air On 07/30/2023 patient was seen and examined on the telemetry floor she is alert and oriented 3 in no apparent distress, she is complaining of generalized weakness, otherwise she denies any complaints, vital exam reveals a temperature of 98.4 pulse 71 respiration 14 blood pressure 115/67 pulse ox 95% on room air sodium 136 potassium 4.1 chloride 101 CO2 19 BUN 108 creatinine 2.59, patient is improving gradually, PT and OT consult, she remains on IV antibiotics, will follow closely On 07/31/2023 patient was seen and examined on the telemetry floor she is alert and oriented 3 in no apparent distress she is still complaining of weakness and complaining of low back pain otherwise she denies any complaints there is no fever or chills no headache or dizziness no chest pain no shortness of breath no cough no nausea or vomiting no abdominal pain no diarrhea and no urinary symptoms. Labs today are still pending, yesterday white blood count was still elevated at 20.7 BUN 108 creatinine 2.59 will continue with current antibiotics infectious disease are following On 08/01/2023 patient was seen and examined on the telemetry floor she is alert and oriented 3 in no apparent distress she is complaining of generalized weakness and low back pain, otherwise she denies any complaints there is no fever or chills no headache or dizziness no chest pain no shortness of breath no cough no nausea or vomiting no abdominal pain no diarrhea and no urinary symptoms. Today white blood count is 23.9 hemoglobin 8.5 platelet count 180 BUN 19 9 creatinine 3.2 On 08/02/2023 patient is alert and oriented 3 currently sitting up in bed eating breakfast. Repeat blood culture has been ordered per infectious disease due to continuing leukocytosis. Antibiotics adjusted to nafcillin per ID. Current vital signs temp 97.6, heart rate 77, respiratory rate 18, blood pressure 87/53 with pulse ox 96% on room. Patient denies chest pain or shortness breath. Patient denies nausea vomiting or diarrhea. Patient denies any urinary burning or frequency On 08/03/2023 patient is alert and oriented 3 currently resting in bed eating breakfast. Patient underwent debridement of right heel pressure ulcer with Dr. Miranda yesterday. White blood cell today slightly improved at 18.17. Creatinine 3.1 nephrology.\, infectious disease and wound care service is following. Patient denies chest pain or shortness of breath. Patient denies nausea vomiting or diarrhea. Patient denies any urinary burning or frequency On 08/04/2023 patient was seen and examined on the medical floor, she is alert and oriented 3 she is complaining of bilateral lower extremity pain especially at the time of dressing change and debridement of her wounds. White blood cell today slightly improved at 18.17. Creatinine 3.1 nephrology.\, infectious disease and wound care service is following. Patient denies chest pain or shortness of breath. Patient denies nausea vomiting or diarrhea. Patient denies any urinary burning or frequency On 08/05/2023 patient is alert and oriented 3. Patient remains on IV antibiotics. Current vital signs temp 97.5, heart rate 62, respiratory rate 16, blood pressure 93/62 with pulse ox 97% on room air. Lab work currently pending. Patient denies chest pain or shortness breath. Patient denies nausea vomiting or diarrhea. Patient denies any urinary burning or frequency. On 08/06/2023 patient was seen and examined on the medical floor she is alert and oriented 3 in no apparent distress, she is feeling better today she is sitting up and eating her meal there is no fever or chills no headache or dizziness no chest pain no shortness of breath no cough no nausea or vomiting no abdominal pain no diarrhea and no urinary symptoms. On 08/07/2023 patient was seen and examined on the medical floor is alert and oriented in no apparent distress she is still complaining of generalized weakness and complaining of pain in bilateral lower extremities otherwise she denies any complaints her vital exam reveals a temperature of 98.2 pulse 59 respiration 16 blood pressure 101/60 pulse ox 97% on room air her white blood count is 13.2 hemoglobin 7.7 platelet count 363 BUN 74 creatinine 2.42 On 08/08/2023 patient was seen and examined on the medical floor she is alert and oriented in no apparent distress she is still complaining of severe pain in the lower extremities especially at the time of debridement or dressing changes she is also complaining of generalized weakness otherwise she denies any complaints there is no fever or chills no chest pain or shortness of breath no cough , no nausea or vomiting no abdominal pain no diarrhea and no urinary sy mptoms. On 08/09/2023 patient is alert and oriented 3. Patient reports improvement in his overall discomfort. Patient remains on IV daptomycin and meropenem. Nephrology infectious he services are following. Patient denies chest pain or shortness breath. Patient denies nausea vomiting or diarrhea. Patient denies any urinary frequency On 08/10/2023 patient's alert and oriented 3. Patient had PICC line placement today with plans of IV vancomycin and meropenem upon discharge to [facility] facility. There were tentative plans for EGD and colonoscopy per surgical service but her family and patient it was decided to hold off on scopes at this point continue monitor hemoglobin and make a decision if needed. Hemoglobin today 7.1. White blood cell 12.02. Will order repeat labs for a.m. patient denies chest pain or shortness breath. Patient denies nausea vomiting or diarrhea. Patient denies any urinary burning or frequency On 08/11/2023 patient was seen and examined on the medical floor she is alert and oriented 3 in no apparent distress there is no fever or chills no headache or dizziness no chest pain no shortness of breath no cough no nausea or vomiting no abdominal pain no diarrhea and no urinary symptoms she is still complaining of severe pain in bilateral lower extremities. Orders for Dilaudid renewed, otherwise hemoglobin is still low down to 7 today, iron level is low patient will be given IV iron, will continue to follow closely. On 09/12/2023 patient's alert and oriented 3. Patient remains second dose of IV iron. Patient reports some improvement but still complaining of discomfort awaiting lab results. Current vital signs temp 97.9, heart rate 91. 18, blood pressure 124/70 with pulse ox of 94% on room air. On 08/13/2023 patient was seen and examined on the medical floor she is alert and oriented 3 in no apparent distress there is no fever or chills no headache or dizziness no chest pain no shortness of breath no cough no nausea or vomiting no abdominal pain no diarrhea and no urinary symptoms she is still complaining of severe pain in bilateral lower extremities. Otherwise hemoglobin 7.5 today, iron level is low patient will be given IV iron, will continue to follow closely. On 08/14/2023 patient's alert and oriented 3. Patient reports improvement with overall pain. Hemoglobin pending discharge planning in progress. Current vital signs temp 97.9, heart rate 74, respiratory 18, blood pressure 113/69 with pulse ox 95% on room air On 08/15/2023 patient was seen and examined the medical floor she is alert and oriented 3 in no apparent distress, there is no fever or chills no headache or dizziness no chest pain no shortness of breath no cough no nausea or vomiting no abdominal pain no diarrhea and no urinary symptoms. Patient is scheduled for discharge today to medical [facility]. Per infectious disease patient will need 5 more weeks of meropenem, last dose on 09/19/2023 Patient will need pain medications, prescription was given for Carlisle 10/325 one every 4 hours as needed, #18 tablets Patient Condition at Discharge: Stable Plan - Discharge Summary Discharge Rx Participant: Yes New Discharge Prescriptions: New HYDROcodone/APAP 10-325MG [Carlisle 10-325] 1 tab PO Q4HR PRN 3 Days #18 tab PRN Reason: Pain Pravastatin Sodium [Pravachol] 20 mg PO DAILY tab Midodrine [ProAmatine] 10 mg PO AC-TID tab Calcium Carbonate [Tums] 500 mg PO Q3H PRN tab PRN Reason: Heartburn Darbepoetin Ramon [Aranesp] 40 mcg SQ Q7D each Torsemide [Demadex] 40 mg PO BID tab Metoprolol Tartrate [Lopressor] 50 mg PO BID tab Meropenem [Merrem] 1 gm IVPB Q12HR@0000,1200 each Pantoprazole [Protonix] 40 mg PO AC-BRKFST tab Sodium Bicarbonate Tab 650 mg PO BID tab Continue Montelukast [Singulair] 10 mg PO HS@1999 Ergocalciferol (Vitamin D2) [Drisdol (50,000 Iu)] 1,250 mcg PO THAPA Acetaminophen [Tylenol] 650 mg PO Q6H PRN PRN Reason: Pain Or Fever > 100.5 Ascorbic Acid [Vitamin C] 1,000 mg PO DAILY@0800 Cholestyramine (with Sugar) [Questran Packet] 4 gm PO BID@0800,2000 Loperamide [Imodium] 2 mg PO Q4H PRN MDD 16 caps PRN Reason: Loose Stools Sevelamer [Renvela] 800 mg PO BID@1230,1730 FLUoxetine HCL [PROzac] 20 mg PO DAILY@0800 Discontinued Torsemide [Demadex] 40 mg PO DAILY tab HYDROcodone/APAP 7.5-325MG [Carlisle 7.5-325] 1 tab PO Q6H PRN PRN Reason: Moderate To Severe Pain (4-10) Hydrocortisone Cream [Hydrocortisone 2.5% Cream] 1 applic TOPICAL Q8H PRN PRN Reason: Rash Discharge Medication List Montelukast [Singulair] 10 mg PO HS@199908/18/19 [History] Ergocalciferol (Vitamin D2) [Drisdol (50,000 Iu)] 1,250 mcg PO THAPA 04/18/23 [History] Acetaminophen [Tylenol] 650 mg PO Q6H PRN 06/28/23 [History] Cholestyramine (with Sugar) [Questran Packet] 4 gm PO BID@0800,2000 06/28/23 [History] Ascorbic Acid [Vitamin C] 1,000 mg PO DAILY@0800 07/27/23 [History] FLUoxetine HCL [PROzac] 20 mg PO DAILY@0800 07/27/23 [History] Loperamide [Imodium] 2 mg PO Q4H PRN MDD 16 caps 07/27/23 [History] Sevelamer [Renvela] 800 mg PO BID@1230,1730 07/27/23 [History] Calcium Carbonate [Tums] 500 mg PO Q3H PRN tab 08/15/23 [Rx] Darbepoetin Ramon [Aranesp] 40 mcg SQ Q7D each 08/15/23 [Rx] HYDROcodone/APAP 10-325MG [Carlisle 10-325] 1 tab PO Q4HR PRN 3 Days #18 tab 08/15/23 [Rx] Meropenem [Merrem] 1 gm IVPB Q12HR@0000,1200 each 08/15/23 [Rx] Metoprolol Tartrate [Lopressor] 50 mg PO BID tab 08/15/23 [Rx] Midodrine [ProAmatine] 10 mg PO AC-TID tab 08/15/23 [Rx] Pantoprazole [Protonix] 40 mg PO AC-BRKFST tab 08/15/23 [Rx] Pravastatin Sodium [Pravachol] 20 mg PO DAILY tab 08/15/23 [Rx] Sodium Bicarbonate Tab 650 mg PO BID tab 08/15/23 [Rx] Torsemide [Demadex] 40 mg PO BID tab 08/15/23 [Rx] Follow up Appointment(s)/Referral(s): Ten Guerrero MD [Primary Care Provider] - 1-2 days
[2023-08-15] MEDS ORDERED: NYSTATIN 100,000 UNIT/GM POWD 15 GM TOPICAL SCH (16:00)
--- NOTE | 2023-08-15 16:02 | P.PN ---
Subjective Progress Note Date: 08/15/23 CHIEF COMPLAINT: Anemia HISTORY OF PRESENT ILLNESS: Patient lying in bed comfortably. Denies any abdominal pain. Denies any nausea or vomiting. She reports no blood in her stools. Patient sent for possible discharge today. HB stable at 7.6 PHYSICAL EXAM: VITAL SIGNS: Reviewed. GENERAL: Well-developed in no acute distress. ABDOMEN: Soft. Nondistended. Nontender. NEUROLOGIC: Alert and oriented. Cranial nerves II through XII grossly intact. ASSESSMENT: 1. Anemia requiring blood transfusion. Patient did have significant amount of bleeding from her leg wounds. 2. History of diverticulosis 3. Bilateral leg wounds PLAN: -No plans for EGD and colonoscopy at this time -Patient can be discharged from surgical standpoint Physician Commercial [employer] Taker note has been reviewed by physician. Signing provider agrees with the documented findings, assessment, and plan of care. Objective - Vital Signs Vital signs: Vital Signs Temp 98.3 F 08/15/23 12:40 Pulse 87 08/15/23 12:40 Resp 18 08/15/23 12:40 BP 112/71 08/15/23 12:40 Pulse Ox 97 08/15/23 12:40 FiO2 Intake & Output 08/14/23 08/15/23 08/15/23 18:59 06:59 18:59 Intake Total 200 Output Total 1000 1800 Balance -1000 -1600 Weight 91.5 kg 91.5 kg Intake: Oral 200 Output: Urine 1000 1800 Other: Voiding Method Indwelling Catheter Indwelling Catheter Indwelling Catheter # Bowel Movements 1 - Labs CBC & Chem 7: 08/15/23 06:10 08/15/23 06:10 Labs: Abnormal Lab Results - Last 24 Hours (Table) 08/15/23 08/15/23 Range/Units 06:10 06:10 RBC 2.44 L (4.10-5.20) X 10*6/uL Hgb 7.6 L (12.0-15.0) d/dL Hct 26.1 L (37.2-46.3) % MCV 107.0 H (80.0-97.0) FL MCHC 29.1 L (32.0-37.0) d/dL RDW 18.0 H (11.5-14.5) % Eosinophils # 1.27 H (0.04-0.35) X 10*3/uL Anion Gap 12.10 H (4.00-12.00) mmol/L BUN 50.6 H (9.0-27.0) mg/dL Est GFR (CKD-EPI) 34 L (>=60) BUN/Creatinine Ratio 33.73 H (12.00-20.00) Ratio Calcium 8.2 L (8.7-10.3) mg/dL Total Bilirubin <0.2 L (0.3-1.2) mg/dL Total Protein 4.9 L (6.2-8.2) d/dL Albumin 2.2 L (3.8-4.9) d/dL Albumin/Globulin Ratio 0.81 L (1.60-3.17) Ratio
--- NOTE | 2023-08-22 12:51 | P.PN ---
Subjective Progress Note Date: 08/14/23 Principal diagnosis: MSSA bacteremia Patient is a 82-year-old female with a past medical history significant for hypertension hyperlipidemia history of chronic lower extremity venous stasis ulcer with recent admission to the hospital have E. coli bacteremia patient did develop ATN requiring hemodialysis patient was subsequently stabilized and transferred to local [place] [facility] , patient did have improvement her kidney function and did not require any further dialysis however the patient continued to have right groin dialysis catheter no presenting to the hospital with weakness tachycardia and did have a positive blood culture with MSSA. Patient did have a mole of the right groin dialysis catheter by vascular surgery on 07/28/2023, patient did have deployment of bilateral heel wound by Dr. Miranda on 08/02/2023 with a repeat debridement on 08/08/2023 On today's evaluation that is 08/14/2023, the patient remains to be afebrile, the patient is breathing comfortably on room air without the need for supplemental oxygen , the patient denies chest pain or cough, patient denies nausea/vomiting or diarrhea and denies any abdominal pain Patient did have white count has normalized to 8.6 and creatinine is down to 1.43 as of 08/13/2023, catheter tip positive blood culture repeated on 07/28/2023 also positive, blood culture from 08/01/2023 so far negative cultures obtained from heel wound were obtained from the micro-lab after multiple calls did grew drug-resistant Pseudomonas Proteus and enterococcus faecalis Objective - Vital Signs Vital signs: Vital Signs Temp 98.6 F 08/14/23 12:42 Pulse 78 08/14/23 12:42 Resp 18 08/14/23 12:42 BP 117/69 08/14/23 17:10 Pulse Ox 96 08/14/23 12:42 FiO2 Intake & Output 08/13/23 08/14/23 08/14/23 18:59 06:59 18:59 Intake Total 240 Output Total 1200 1200 1000 Balance -960 -1200 -1000 Intake: Oral 240 Output: Urine 1200 1200 1000 Other: Voiding Method Indwelling Catheter Indwelling Catheter Indwelling Catheter # Bowel Movements 1 - Exam GENERAL DESCRIPTION: An elderly female lying in bed in no distress RESPIRATORY SYSTEM: Unlabored breathing , decreased breath sounds at bases HEART: S1 S2 regular rate and rhythm , ABDOMEN: Soft , no tenderness EXTREMITIES: Bilateral heel wounds currently dressed, no drainage - Labs CBC & Chem 7: 08/15/23 06:10 08/15/23 06:10 Assessment and Plan (1) Cellulitis Status: Acute Code(s): L03.90 - CELLULITIS, UNSPECIFIED SNOMED Code(s): 989273216 (2) Leukocytosis Status: Acute Code(s): D72.829 - ELEVATED WHITE BLOOD CELL COUNT, UNSPECIFIED SNOMED Code(s): 722656160 (3) Stage II pressure ulcer of left buttock Status: Acute Code(s): L89.322 - PRESSURE ULCER OF LEFT BUTTOCK, STAGE 2 SNOMED Code(s): 64566402107474 (4) Stage II pressure ulcer of left heel Status: Acute Code(s): L89.622 - PRESSURE ULCER OF LEFT HEEL, STAGE 2 SNOMED Code(s): 32730821500309 (5) Stage II pressure ulcer of right buttock Status: Acute Code(s): L89.312 - PRESSURE ULCER OF RIGHT BUTTOCK, STAGE 2 SNOMED Code(s): 67796319288567 (6) MSSA bacteremia Status: Acute Code(s): R78.81 - BACTEREMIA; B95.61 - METHICILLIN SUSCEP STAPH INFCT CAUSING DIS CLASSD ELSWHR SNOMED Code(s): 625239559 Plan: 1patient presented to hospital with tachycardia patient did have a low-grade fever and elevated white count and MSSA bacteremia source is likely dialysis catheter infection which has been discontinued 2-right lower extremity wound care with a dry Aquacel dressing and Daniel wrap for compression 3-to continue with zinc to the excoriated skin to the bilateral gluteal and sacral area keep the area of the pressure 4 blood culture repeated on 07/28/2023 positive however blood cultures on 08/01/2023 has been negative, we will continue the patient on daptomycin to finish treatment for her bacteremia, with the last dose of daptomycin will be 08/15/2023 5- patient also have bilateral heel infected wound, status post debridement of bilateral heel wounds and those cultures are growing drug-resistant Pseudomonas Enterococcus faecalis and Proteus , per discussion with the surgeon at the time of debridement the wound was tracking all the way down to the bone to the right heel, concerning for deep infection and osteomyelitis patient white count has normalized 6-patient to continue with meropenem to finish a 6 week course of therapy, and d aptomycin can be discontinued after 08/15/23 dose son at bedside and multiple questions were answered Dictation was produced using Submit[employer]ation software. please excuse any grammatical, word or spelling errors. Time with Patient: Less than 30
--- NOTE | 2023-08-22 12:52 | P.PN ---
Subjective Progress Note Date: 08/15/23 Principal diagnosis: MSSA bacteremia Patient is a 82-year-old female with a past medical history significant for hypertension hyperlipidemia history of chronic lower extremity venous stasis ulcer with recent admission to the hospital have E. coli bacteremia patient did develop ATN requiring hemodialysis patient was subsequently stabilized and transferred to local detention for rehabilitation , patient did have improvement her kidney function and did not require any further dialysis however the patient continued to have right groin dialysis catheter no presenting to the hospital with weakness tachycardia and did have a positive blood culture with MSSA. Patient did have a mole of the right groin dialysis catheter by vascular surgery on 07/28/2023, patient did have deployment of bilateral heel wound by Dr. Miranda on 08/02/2023 with a repeat debridement on 08/08/2023 On today's evaluation that is 08/15/2023, the patient remains to be afebrile, the patient is breathing comfortably on room air without the need for supplemental oxygen and no shortness of breath, the patient denies having any chest pain or cough, patient denies nausea/vomiting /diarrhea and no abdominal pain, Patient did have white count is 8.37, creatinine is 1.5, catheter tip positive blood culture repeated on 07/28/2023 also positive, blood culture from 08/01/2023 so far negative cultures obtained from heel wound were obtained from the micro-lab after multiple calls did grew drug-resistant Pseudomonas Proteus and enterococcus faecalis Objective - Vital Signs Vital signs: Vital Signs Temp 98.3 F 08/15/23 12:40 Pulse 87 08/15/23 12:40 Resp 18 08/15/23 12:40 BP 112/71 08/15/23 12:40 Pulse Ox 97 08/15/23 12:40 FiO2 Intake & Output 08/14/23 08/15/23 08/15/23 18:59 06:59 18:59 Intake Total 200 Output Total 1000 1800 750 Balance -1000 -1600 -750 Weight 91.5 kg 91.5 kg Intake: Oral 200 Output: Urine 1000 1800 750 Other: Voiding Method Indwelling Catheter Indwelling Catheter Indwelling Catheter # Bowel Movements 1 - Exam GENERAL DESCRIPTION: An elderly female lying in bed in no distress RESPIRATORY SYSTEM: Unlabored breathing , decreased breath sounds at bases HEART: S1 S2 regular rate and rhythm , ABDOMEN: Soft , no tenderness EXTREMITIES: Bilateral heel wounds currently dressed, no drainage - Labs CBC & Chem 7: 08/15/23 06:10 08/15/23 06:10 Labs: Abnormal Lab Results - Last 24 Hours (Table) 08/05/23 08/09/23 08/10/23 Range/Units 06:22 06:20 06:40 RBC (4.10-5.20) X 10*6/uL Hgb (12.0-15.0) d/dL Hct (37.2-46.3) % MCV (80.0-97.0) [place] MCHC (32.0-37.0) d/dL RDW (11.5-14.5) % Neutrophils # (Manual) 12.65 H 13.08 H 8.77 H (1.80-7.70) X 10*3/uL Eosinophils # (0.04-0.35) X 10*3/uL Anion Gap (4.00-12.00) mmol/L BUN (9.0-27.0) mg/dL Est GFR (CKD-EPI) (>=60) BUN/Creatinine Ratio (12.00-20.00) Ratio Calcium (8.7-10.3) mg/dL Total Bilirubin (0.3-1.2) mg/dL Total Protein (6.2-8.2) d/dL Albumin (3.8-4.9) d/dL Albumin/Globulin Ratio (1.60-3.17) Ratio 08/15/23 08/15/23 Range/Units 06:10 06:10 RBC 2.44 L (4.10-5.20) X 10*6/uL Hgb 7.6 L (12.0-15.0) d/dL Hct 26.1 L (37.2-46.3) % MCV 107.0 H (80.0-97.0) FL MCHC 29.1 L (32.0-37.0) d/dL RDW 18.0 H (11.5-14.5) % Neutrophils # (Manual) (1.80-7.70) X 10*3/uL Eosinophils # 1.27 H (0.04-0.35) X 10*3/uL Anion Gap 12.10 H (4.00-12.00) mmol/L BUN 50.6 H (9.0-27.0) mg/dL Est GFR (CKD-EPI) 34 L (>=60) BUN/Creatinine Ratio 33.73 H (12.00-20.00) Ratio Calcium 8.2 L (8.7-10.3) mg/dL Total Bilirubin <0.2 L (0.3-1.2) mg/dL Total Protein 4.9 L (6.2-8.2) d/dL Albumin 2.2 L (3.8-4.9) d/dL Albumin/Globulin Ratio 0.81 L (1.60-3.17) Ratio Assessment and Plan (1) Cellulitis Status: Acute Code(s): L03.90 - CELLULITIS, UNSPECIFIED SNOMED Code(s): 898335214 (2) Leukocytosis Status: Acute Code(s): D72.829 - ELEVATED WHITE BLOOD CELL COUNT, UNSPECIFIED SNOMED Code(s): 587676496 (3) Stage II pressure ulcer of left buttock Status: Acute Code(s): L89.322 - PRESSURE ULCER OF LEFT BUTTOCK, STAGE 2 SNOMED Code(s): 14918753987028 (4) Stage II pressure ulcer of left heel Status: Acute Code(s): L89.622 - PRESSURE ULCER OF LEFT HEEL, STAGE 2 SNOMED Code(s): 17376408514356 (5) Stage II pressure ulcer of right buttock Status: Acute Code(s): L89.312 - PRESSURE ULCER OF RIGHT BUTTOCK, STAGE 2 SNOMED Code(s): 34717986157235 (6) MSSA bacteremia Status: Acute Code(s): R78.81 - BACTEREMIA; B95.61 - METHICILLIN SUSCEP STAPH INFCT CAUSING DIS CLASSD ELSWHR SNOMED Code(s): 309683914 Plan: 1patient presented to hospital with tachycardia patient did have a low-grade fever and elevated white count and MSSA bacteremia source is likely dialysis catheter infection which has been discontinued 2-right lower extremity wound care with a dry Aquacel dressing and Daniel wrap for compression 3-to continue with zinc to the excoriated skin to the bilateral gluteal and sacral area keep the area of the pressure 4 blood culture repeated on 07/28/2023 positive however blood cultures on 08/01/2023 has been negative, we will continue the patient on daptomycin to finish treatment for her bacteremia, with the last dose of daptomycin will be 08/15/2023 5- patient also have bilateral heel infected wound, status post debridement of bilateral heel wounds and those cultures are growing drug-resistant Pseudomonas Enterococcus faecalis and Proteus , per discussion with the surgeon at the time of debridement the wound was tracking all the way down to the bone to the right heel, concerning for deep infection and osteomyelitis patient white count has normalized 6-daptomycin will be discontinued after today's dose and the patient will continue with meropenem to finish a total of 6 week course of therapy, and close outpatient follow-up Dictation was produced using [employer] dictation software. please excuse any grammatical, word or spelling errors. Time with Patient: Less than 30
== END 2023-08-15 18:46 | DRG 264 ==
LOC: EC 23:14 → 3SCARD 07-27 04:05 → 5NMEDONC 07-30 11:27
PROVIDERS: ADMIT Internal Medicine; ATTEND Internal Medicine
PROC: 0JPW3XZ Removal of Tunneled Vascular Access Device from Lower Extremity Subcutaneous Tissue and Fascia, Percutaneous Approach (ICD-10-PCS; principal; 2023-07-28)
PROC: 0JBQ0ZZ Excision of Right Foot Subcutaneous Tissue and Fascia, Open Approach (ICD-10-PCS; 2023-08-02)
PROC: 0JBR0ZZ Excision of Left Foot Subcutaneous Tissue and Fascia, Open Approach (ICD-10-PCS; 2023-08-02)
PROC: 0JBQ0ZZ Excision of Right Foot Subcutaneous Tissue and Fascia, Open Approach (ICD-10-PCS; 2023-08-08)
PROC: 0JBR0ZZ Excision of Left Foot Subcutaneous Tissue and Fascia, Open Approach (ICD-10-PCS; 2023-08-08)
PROC: 30233N1 Transfusion of Nonautologous Red Blood Cells into Peripheral Vein, Percutaneous Approach (ICD-10-PCS; 2023-08-09)
PROC: 5A1D70Z Performance of Urinary Filtration, Intermittent, Less than 6 Hours Per Day (ICD-10-PCS; 2023-08-10)
PROC: 02HV33Z Insertion of Infusion Device into Superior Vena Cava, Percutaneous Approach (ICD-10-PCS; 2023-08-10)
PROC: B548ZZA Ultrasonography of Superior Vena Cava, Guidance (ICD-10-PCS; 2023-08-10)
PROC: B5181ZA Fluoroscopy of Superior Vena Cava using Low Osmolar Contrast, Guidance (ICD-10-PCS; 2023-08-10)
DX: T80.211A Bloodstream infection due to central venous catheter, initial encounter (principal); A41.01 Sepsis due to Methicillin susceptible Staphylococcus aureus; N17.0 Acute kidney failure with tubular necrosis; R65.20 Severe sepsis without septic shock; I48.92 Unspecified atrial flutter; I87.331 Chronic venous hypertension (idiopathic) with ulcer and inflammation of right lower extremity; L97.312 Non-pressure chronic ulcer of right ankle with fat layer exposed; M62.82 Rhabdomyolysis; L03.116 Cellulitis of left lower limb; L03.115 Cellulitis of right lower limb; I13.0 Hypertensive heart and chronic kidney disease with heart failure and stage 1 through stage 4 chronic kidney disease, or unspecified chronic kidney disease; E87.20 Acidosis, unspecified; I50.32 Chronic diastolic (congestive) heart failure; T36.95XA Adverse effect of unspecified systemic antibiotic, initial encounter; D63.1 Anemia in chronic kidney disease; I08.0 Rheumatic disorders of both mitral and aortic valves; F41.9 Anxiety disorder, unspecified; I87.8 Other specified disorders of veins; L89.322 Pressure ulcer of left buttock, stage 2; L89.312 Pressure ulcer of right buttock, stage 2; L89.622 Pressure ulcer of left heel, stage 2; L89.610 Pressure ulcer of right heel, unstageable; Z87.440 Personal history of urinary (tract) infections; Z79.2 Long term (current) use of antibiotics; Z79.899 Other long term (current) drug therapy; Z87.19 Personal history of other diseases of the digestive system; K21.9 Gastro-esophageal reflux disease without esophagitis; L27.1 Localized skin eruption due to drugs and medicaments taken internally; R79.89 Other specified abnormal findings of blood chemistry; N18.32 Chronic kidney disease, stage 3b; B95.2 Enterococcus as the cause of diseases classified elsewhere; B96.4 Proteus (mirabilis) (morganii) as the cause of diseases classified elsewhere; B96.5 Pseudomonas (aeruginosa) (mallei) (pseudomallei) as the cause of diseases classified elsewhere; E78.5 Hyperlipidemia, unspecified; E83.39 Other disorders of phosphorus metabolism; L98.429 Non-pressure chronic ulcer of back with unspecified severity; X58.XXXA Exposure to other specified factors, initial encounter; M19.90 Unspecified osteoarthritis, unspecified site; M25.512 Pain in left shoulder; M25.511 Pain in right shoulder; G89.29 Other chronic pain; K57.90 Diverticulosis of intestine, part unspecified, without perforation or abscess without bleeding; Z98.42 Cataract extraction status, left eye; Z98.41 Cataract extraction status, right eye; Z96.1 Presence of intraocular lens; Z99.2 Dependence on renal dialysis; Z96.653 Presence of artificial knee joint, bilateral; Z90.49 Acquired absence of other specified parts of digestive tract; Z98.51 Tubal ligation status; Z88.2 Allergy status to sulfonamides; Z91.048 Other nonmedicinal substance allergy status; E05.90 Thyrotoxicosis, unspecified without thyrotoxic crisis or storm; E11.22 Type 2 diabetes mellitus with diabetic chronic kidney disease; E87.6 Hypokalemia; L98.492 Non-pressure chronic ulcer of skin of other sites with fat layer exposed
CPT/HCPCS: 36415; 36573; 71045; 78580; 80048; 80053; 81001; 82272; 82607; 82746; 83540; 83550; 83735; 83880; 84100; 84484; 85025; 85379; 85610; 85652; 85730; 86140; 86850; 86900; 86901; 86920; 87040; 87070; 87075; 87077; 87086; 87186; 87205; 93005; 93308; 96365; 96366; 96367; 96368; 96375; 99291

== ENCOUNTER 2024-04-25 09:26 | Inpatient (IN) | payer MEDICARE, OTHER ==
[2024-04-25] MEDS ORDERED: VANCOMYCIN IV PER PHARMACY 1 EACH MISC MISCELLANE PRN (09:37)
--- NOTE | 2024-04-25 09:39 | ED ---
General Adult HPI - General Chief complaint: Weakness Stated complaint: Gary feet sores Time Seen by Provider: 04/25/24 09:27 Source: patient, EMS Mode of arrival: EMS Limitations: physical limitation - History of Present Illness Initial comments: Dictation was produced using [employer] dictation software. please excuse any grammatical, word or spelling errors. Chief Complaint: 83-year-old female chronic wounds to her bilateral feet presents with foot pain History of Present Illness: Patient is 83-year-old female presents the emergency department acute on chronic wound. Patient lives at home she was recently discharged from rehab facility. Patient usually able to stand on her feet for some period of time to pivot however today her feet were so sore that she was not able to do that. EMS was called by patient's son. Patient has chronic wounds to the leg. She has home visiting nurse that comes to the house once a week. She has not had her dressing changed in a week. Per EMS patient has a malodorous wound she was given some fentanyl. Patient [place] any fever or constitutional symptoms. She was supposed to be admitted last week by her [facility] doctor however for some reason she was not. The ROS documented in this emergency department record has been reviewed and confirmed by me. Those systems with pertinent positive or negative responses have been documented in the HPI. All other systems are other negative and/or noncontributory. - Related Data Home Medications Medication Instructions Recorded Confirmed Montelukast [Singulair] 10 mg PO HS 08/18/19 04/25/24 Acetaminophen [Tylenol Arthritis] 650 - 1,300 mg PO Q8H PRN 04/25/24 04/25/24 Cephalexin [Keflex] 500 mg PO Q6H 04/25/24 04/25/24 Furosemide [Lasix] 40 mg PO DAILY 04/25/24 04/25/24 HYDROcodone/APAP 10-325MG [[place] 1 tab PO Q8H 04/25/24 04/25/24 10-325] Potassium Chloride [Klor-Con M20] 20 meq PO DAILY 04/25/24 04/25/24 Previous Rx's Medication Instructions Recorded Pravastatin Sodium [Pravachol] 20 mg PO DAILY tab 08/15/23 Allergies Allergy/AdvReac Type Severity Reaction Status Date / Time adhesive tape Allergy Unknown Rash/Hives Verified 04/25/24 10:36 Sulfa (Sulfonamide Allergy Rash/Hives Verified 04/25/24 10:36 Antibiotics) Review of Systems ROS Statement: Those systems with pertinent positive or pertinent negative responses have been documented in the HPI. ROS Other: All systems not noted in ROS Statement are negative. Past Medical History Past Medical History: GERD/Reflux, Hyperlipidemia, Hypertension, Osteoarthritis (OA), Renal Disease, Skin Disorder Additional Past Medical History / Comment(s): chronic low back/cervical and bilateral shoulder pain, benign colon polyps/diverticular disease, bilateral lower extremity cellulitis but R leg much more often, UTIs, polynephritis, hiatal hernia many years ago.dialysis, cellulitis/bilat lower extremity wounds History of Any Multi-Drug Resistant Organisms: None Reported Past Surgical History: Appendectomy, Cholecystectomy, Joint Replacement, Orthopedic Surgery, Tubal Ligation Additional Past Surgical History / Comment(s): Bilateral total knee arthroplasties, pain clinic procedures, colonoscopies/benign polypectomies, bilateral cataract removals/lens implants, PICC line. Past Anesthesia/Blood Transfusion Reactions: No Reported Reaction Past Psychological History: No Psychological Hx Reported Smoking Status: Never smoker Past Alcohol Use History: None Reported, Rare Past Drug Use History: None Reported - Past Family History Mother Family Medical History: Cancer Additional Family Medical History / Comment(s): BREAST CANCER. at 28 years old Father Family Medical History: Cancer Additional Family Medical History / Comment(s): LIVER CANCER/HEART PROBLEMS. Son(s) Family Medical History: Cancer Additional Family Medical History / Comment(s): MULTIPLE MYELOMA/bone cancer- PASSED 2015. General Exam - General Exam Comments Initial Comments: PHYSICAL EXAM: General Impression: Alert and oriented x3, not in acute distress HEENT: Normocephalic atraumatic, extra-ocular movements intact, pupils equal and reactive to light bilaterally, mucous membranes moist. Cardiovascular: Heart regular rate and rhythm Chest: Able to complete full sentences, no retractions, no tachypnea Abdomen: abdomen soft, non-tender, non-distended, no organomegaly Musculoskeletal: Pulses present and equal in all extremities, no peripheral edema Motor: no focal deficits noted Neurological: CN II-XII grossly intact, no focal motor or sensory deficits noted Skin: Intact with no visualized rashes Psych: Normal affect and mood Bilateral feet: Draining purulent malodorous wounds to the bilateral feet on the heel and toes diffusely no exposed bone Limitations: physical limitation Course Vital Signs 04/25/24 04/25/24 04/25/24 09:27 10:06 10:30 Temperature 98.9 F Pulse Rate 91 85 89 Respiratory 20 17 18 Rate Blood Pressure 111/82 152/85 O2 Sat by Pulse 97 96 98 Oximetry 04/25/24 04/25/24 11:10 12:00 Temperature 97.9 F Pulse Rate 85 85 Respiratory 16 18 Rate Blood Pressure 128/77 135/78 O2 Sat by Pulse 95 97 Oximetry EKG Findings - EKG Comments: EKG Findings:: My EKG interpretation: Ventricular rate 85, sinus rhythm,. With 200, cures 94, QTc 424. No GA prolongation, no QTC prolongation, no ST or T-wave changes noted. Overall, this EKG is unremarkable Medical Decision Making - Medical Decision Making Was pt. sent in by a medical professional or institution (, PA, COMMERCIAL LOAN SPECIALIST, urgent care, hospital, or residential...) When possible be specific @ -No Did you speak to anyone other than the patient for history (EMS, parent, family, police, friend...)? What history was obtained from this source @ -Some history obtained from EMS via nurse Did you review nursing and triage notes (agree or disagree)? Why? @ -I reviewed and agree with nursing and triage notes Were old charts reviewed (outside hosp., previous admission, EMS record, old EKG, old radiological studies, urgent care reports/EKG's, residential records)? Report findings @ -No old charts were reviewed Differential Diagnosis (chest pain, altered mental status, abdominal pain women, abdominal pain men, vaginal bleeding, musculoskeletal, weakness, fever, dyspnea, syncope, headache, dizziness, GI bleed, back pain, seizure, CVA, palpatations, mental health)? @ -Gangrene, osteomyelitis, cellulitis EKG interpreted by me (3pts min.). @ -None done X-rays interpreted by me (1pt min.). @ -X-ray shows no obvious osteomyelitis. No occult fracture CT interpreted by me (1pt min.). @ -None done U/S interpreted by me (1pt. min.). @ -None done What testing was considered but not performed or refused? (CT, X-rays, U/S, labs)? Why? @ -None What meds were considered but not given or refused? Why? @ -None Was smoking cessation discussed for >3mins.? @ -No Were there social determinants of health that impacted care today? How? (Homelessness, low income, unemployed, alcoholism, drug addiction, transportation, low edu. Level, literacy, decrease access to med. care, skilled nursing, rehab)? @ -No Was there de-escalation of care discussed even if they declined (Discuss DNR or withdrawal of care, Hospice)? DNR status @ -No What co-morbidities impacted this encounter? (DM, HTN, Smoking, COPD, CAD, Cancer, CVA, ARF, Chemo, Hep., AIDS, mental health diagnosis, sleep apnea, morbid obesity)? @ -Debility, chronic wounds Was patient admitted / discharged? Hospital course, mention meds given and route, prescriptions, significant lab abnormalities, going to OR and other pertinent info. @ -83-year-old female presents to the emergency department for chief complaint of worsening wounds. She has got bilateral foot pain. Patient has gangrenous w ounds with drainage of purulent fluid that is malodorous. Vital signs upon arrival are within acceptable limits. Patient denies any constitutional symptoms. Laboratory evaluation is unremarkable. X-ray shows no osteomyelitis. Patient will be admitted consultation infectious disease. Patient given broad-spectrum antibiotics. Patient does not meet critical criteria for sepsis. She has a lactic below 4 and normal blood pressure Did you discuss the management of the patient with other professionals (professionals i.e. , PA, COMMERCIAL LOAN SPECIALIST, lab, RT, psych nurse, secondary social studies teacher, fiberglass technician, teacher, ict customer support officer, nurse case management)? Give summary @ -Case discussed with hospitalist for admission Was critical care preformed (if so, how long)? @ -No Undiagnosed new problem with uncertain prognosis? @ -No Drug Therapy requiring intensive monitoring for toxicity (Heparin, Nitro, Insulin, Cardizem)? @ -No Were any procedures done? @ -No Diagnosis/symptom? Acute, or Chronic, or Acute on Chronic? Uncomplicated (without systemic symptoms) or Complicated (systemic symptoms)? @ -Gangrene Side effects of treatment? @ -No Exacerbation, Progression, or Severe Exacerbation? @ -No Poses a threat to life or bodily function? How? (Chest pain, USA, PA, pneumonia, PE, COPD, DKA, ARF, appy, cholecystitis, CVA, Diverticulitis, Homicidal, Suicidal, threat to staff... and all critical care pts) @ -yes - Lab Data Result diagrams: 04/25/24 09:43 04/25/24 09:43 Lab Results 04/25/24 04/25/24 04/25/24 Range/Units 09:43 09:43 09:43 WBC 8.4 (3.8-10.6) k/uL RBC 3.16 L (3.80-5.40) m/uL Hgb 10.3 L (11.4-16.0) gm/dL Hct 33.5 L (34.0-46.0) % MCV 105.7 H (80.0-100.0) fL MCH 32.4 (25.0-35.0) pg MCHC 30.6 L (31.0-37.0) g/dL RDW 13.0 (11.5-15.5) % Plt Count 429 (150-450) k/uL MPV 8.8 Neutrophils % 80 % Lymphocytes % 11 % Monocytes % 6 % Eosinophils % 2 % Basophils % 0 % Neutrophils # 6.7 (1.3-7.7) k/uL Lymphocytes # 0.9 L (1.0-4.8) k/uL Monocytes # 0.5 (0-1.0) k/uL Eosinophils # 0.2 (0-0.7) k/uL Basophils # 0.0 (0-0.2) k/uL Hypochromasia Slight Macrocytosis Moderate PT (10.0-12.5) sec INR (<1.2) APTT (22.0-30.0) sec Sodium 140 (137-145) mmol/L Potassium 3.7 (3.5-5.1) mmol/L Chloride 110 H (98-107) mmol/L Carbon Dioxide 25 (22-30) mmol/L Anion Gap 5 mmol/L BUN 22 H (7-17) mg/dL Creatinine 1.18 H (0.52-1.04) mg/dL Est GFR (CKD-EPI)AfAm 49 (>60 ml/min/1.73 sqM) Est GFR (CKD-EPI)NonAf 43 (>60 ml/min/1.73 sqM) Glucose 87 (74-99) mg/dL Plasma Lactic Acid [place] 1.1 (0.7-2.0) mmol/L Calcium 9.3 (8.4-10.2) mg/dL Total Bilirubin 0.4 (0.2-1.3) mg/dL AST 19 (14-36) U/L ALT 9 (4-34) U/L Alkaline Phosphatase 89 (38-126) U/L Total Protein 6.3 (6.3-8.2) g/dL Albumin 3.4 L (3.5-5.0) g/dL 04/25/24 Range/Units 11:17 WBC (3.8-10.6) k/uL RBC (3.80-5.40) m/uL Hgb (11.4-16.0) gm/dL Hct (34.0-46.0) % MCV (80.0-100.0) fL MCH (25.0-35.0) pg MCHC (31.0-37.0) g/dL RDW (11.5-15.5) % Plt Count (150-450) k/uL MPV Neutrophils % % Lymphocytes % % Monocytes % % Eosinophils % % Basophils % % Neutrophils # (1.3-7.7) k/uL Lymphocytes # (1.0-4.8) k/uL Monocytes # (0-1.0) k/uL Eosinophils # (0-0.7) k/uL Basophils # (0-0.2) k/uL Hypochromasia Macrocytosis PT 10.4 (10.0-12.5) sec INR 0.9 (<1.2) APTT 25.0 (22.0-30.0) sec Sodium (137-145) mmol/L Potassium (3.5-5.1) mmol/L Chloride (98-107) mmol/L Carbon Dioxide (22-30) mmol/L Anion Gap mmol/L BUN (7-17) mg/dL Creatinine (0.52-1.04) mg/dL Est GFR (CKD-EPI)AfAm (>60 ml/min/1.73 sqM) Est GFR (CKD-EPI)NonAf (>60 ml/min/1.73 sqM) Glucose (74-99) mg/dL Plasma Lactic Acid [place] (0.7-2.0) mmol/L Calcium (8.4-10.2) mg/dL Total Bilirubin (0.2-1.3) mg/dL AST (14-36) U/L ALT (4-34) U/L Alkaline Phosphatase (38-126) U/L Total Protein (6.3-8.2) g/dL Albumin (3.5-5.0) g/dL Disposition Clinical Impression: Gangrene Disposition: ADMITTED IP TO THIS HOSP Condition: Fair Referrals: Ten Guerrero MD [Primary Care Provider] - 1-2 days Decision Time: 12:40
[2024-04-25] MEDS: PIPERACILLIN-TAZOBACTAM 3.375 GM in SODIUM CHLORIDE 0.9% 100 ML IVPB SCH (10:02)
[2024-04-25 10:23] LABS: ALT 9 U/L (4-34); AST 19 U/L (14-36); African American GFR (CKD) 49 (>60 ml/min/1.73 sqM); Albumin 3.4 g/dL (3.5-5.0); Alkaline Phosphatase 89 U/L (38-126); Anion Gap 5 mmol/L; Blood Urea Nitrogen 22 mg/dL (7-17); Calcium 9.3 mg/dL (8.4-10.2); Carbon Dioxide 25 mmol/L (22-30); Chloride 110 mmol/L (98-107); Glucose 87 mg/dL (74-99); Non-African American GFR(CKD) 43 (>60 ml/min/1.73 sqM); Potassium 3.7 mmol/L (3.5-5.1); Sodium 140 mmol/L (137-145); Total Bilirubin 0.4 mg/dL (0.2-1.3); Total Protein 6.3 g/dL (6.3-8.2)
[2024-04-25] MEDS: MORPHINE SULFATE 4 MG/ML SYRINGE IV STA (10:32)
[2024-04-25 10:40] LABS: Basophils % (A) 0 %; Eosinophils # (A) 0.2 k/uL (0-0.7); Eosinophils % (A) 2 %; HCT 33.5 % (34.0-46.0); HGB 10.3 gm/dL (11.4-16.0); Hypochromasia Slight; Lymphocytes # (A) 0.9 k/uL (1.0-4.8); Lymphocytes % (A) 11 %; MCH 32.4 pg (25.0-35.0); MCHC 30.6 g/dL (31.0-37.0); MCV 105.7 fL (80.0-100.0); Macrocytosis Moderate; Mean Platelet Volume 8.8; Monocytes # (A) 0.5 k/uL (0-1.0); Monocytes % (A) 6 %; Neutrophils # (A) 6.7 k/uL (1.3-7.7); Neutrophils % (A) 80 %; Platelet Count 429 k/uL (150-450); RBC 3.16 m/uL (3.80-5.40); WBC 8.4 k/uL (3.8-10.6)
[2024-04-25] MEDS: VANCOMYCIN 1,250 MG in SODIUM CHLORIDE 0.9% 250 ML IVPB ONE (11:12)
[2024-04-25 11:29] LABS: INR 0.9 (<1.2); Prothrombin Time 10.4 sec (10.0-12.5)
[2024-04-25] MEDS ORDERED: NALOXONE 0.4 MG/ML 1 ML VIAL IV PRN (12:29)
--- NOTE | 2024-04-25 12:46 | XR ---
EXAMINATION TYPE: XR foot complete bilateral DATE OF EXAM: 04/25/2024 12:15 PM CLINICAL INDICATION:Female, 83 years old with history of wounds; H COMPARISON: None TECHNIQUE: XR foot complete bilateral examined in the AP, oblique, and lateral projections. FINDINGS: Severe osteopenia and degeneration changes throughout the joints of the foot with hallux valgus of th e first digit. There is joint space narrowing and osteophyte formation worse at the first digit metat arsophalangeal joint. Calcaneal plantar spurring remains present. Arthrosis course of the arterial va sculature. Wound in the posterior heel without evidence for osseous erosion. IMPRESSION: 1. No evidence of acute fracture. No evidence for osseous erosion. 2. Severe degeneration changes of the first digit metatarsophalangeal joints with hallux valgus.
[2024-04-25] MEDS: SODIUM CHLORIDE 0.9% 1,000 ML IV SCH (13:12)
[2024-04-25] MEDS: POTASSIUM CHLORIDE ER 20 MEQ TAB.ER PO SCH (13:41)
[2024-04-25] MEDS: FUROSEMIDE 40 MG TAB PO SCH (13:41)
[2024-04-25] MEDS: MORPHINE SULFATE 4 MG/ML SYRINGE IV PRN (13:43)
--- NOTE | 2024-04-25 13:50 | P.HPIM ---
History of Present Illness H&P Date: 04/25/24 Dania Vergara, is an 83-year-old female who presented to [facility] with a chief complaint of bilateral lower extremity swelling erythema and large open ulcers with pain and drainage. She was evaluated in the emergency room vital examination on presentation revealed a temperature of 98.9 pulse 91 respiration 20 blood pressure 111/82 pulse ox 97% on room air Laboratory data revealed a white blood count of 8.4 hemoglobin 10.3 platelet count 429 BUN 22 creatinine 1.18 Testing in the emergency room revealed bilateral feet x-ray done in the emergency room revealed revealed no evidence of acute fracture no evidence for osseous erosion Patient was admitted to medical floor for further evaluation and treatment Past Medical History Past Medical History: GERD/Reflux, Hyperlipidemia, Hypertension, Osteoarthritis (OA), Renal Disease, Skin Disorder Additional Past Medical History / Comment(s): chronic low back/cervical and bilateral shoulder pain, benign colon polyps/diverticular disease, bilateral lower extremity cellulitis but R leg much more often, UTIs, polynephritis, hiatal hernia many years ago.dialysis, cellulitis/bilat lower extremity wounds History of Any Multi-Drug Resistant Organisms: None Reported Past Surgical History: Appendectomy, Cholecystectomy, Joint Replacement, Orthopedic Surgery, Tubal Ligation Additional Past Surgical History / Comment(s): Bilateral total knee arthroplasties, pain clinic procedures, colonoscopies/benign polypectomies, bilateral cataract removals/lens implants, PICC line. Past Anesthesia/Blood Transfusion Reactions: No Reported Reaction Past Psychological History: No Psychological Hx Reported Smoking Status: Never smoker Past Alcohol Use History: None Reported, Rare Past Drug Use History: None Reported - Past Family History Mother Family Medical History: Cancer Additional Family Medical History / Comment(s): BREAST CANCER. at 28 years old Father Family Medical History: Cancer Additional Family Medical History / Comment(s): LIVER CANCER/HEART PROBLEMS. Son(s) Family Medical History: Cancer Additional Family Medical History / Comment(s): MULTIPLE MYELOMA/bone cancer- PASSED 2015. Medications and Allergies Home Medications Medication Instructions Recorded Confirmed Type Montelukast [Singulair] 10 mg PO HS 08/18/19 04/25/24 History Pravastatin Sodium [Pravachol] 20 mg PO DAILY tab 08/15/23 04/25/24 Rx Acetaminophen [Tylenol Arthritis] 650 - 1,300 mg PO Q8H PRN 04/25/24 04/25/24 History Cephalexin [Keflex] 500 mg PO Q6H 04/25/24 04/25/24 History Furosemide [Lasix] 40 mg PO DAILY 04/25/24 04/25/24 History HYDROcodone/APAP 10-325MG [[place] 1 tab PO Q8H 04/25/24 04/25/24 History 10-325] Potassium Chloride [Klor-Con M20] 20 meq PO DAILY 04/25/24 04/25/24 History Allergies Allergy/AdvReac Type Severity Reaction Status Date / Time adhesive tape Allergy Unknown Rash/Hives Verified 04/25/24 10:36 Sulfa (Sulfonamide Allergy Rash/Hives Verified 04/25/24 10:36 Antibiotics) Physical Exam Vitals: Vital Signs Temp Pulse Resp BP Pulse Ox 04/25/24 12:00 97.9 F 85 18 135/78 97 04/25/24 11:10 85 16 128/77 95 04/25/24 10:30 89 18 152/85 98 04/25/24 10:06 85 17 96 04/25/24 09:27 98.9 F 91 20 111/82 97 Intake and Output 04/24/24 04/25/24 04/25/24 22:59 06:59 14:59 Other: Weight 74.389 kg In general patient is alert and oriented x 3 in no distress HEENT head normocephalic and atraumatic Neck is supple no JVD no goiter no lymphadenopathy no carotid bruit Chest examination is clear to auscultation no crackles no wheezing Cardiac exam reveals regular heart sounds S1 and S2 no gallops no murmurs Abdomen is soft nontender no organomegaly with normal bowel sounds Extremity exam reveals mild edema with bilateral lower extremity erythema and large ulcers with purulent discharge Neurological examination reveals no gross focal deficits Results CBC & Chem 7: 04/25/24 09:43 04/25/24 09:43 Labs: Abnormal Lab Results - Last 24 Hours (Table) 04/25/24 04/25/24 Range/Units 09:43 09:43 RBC 3.16 L (3.80-5.40) m/uL Hgb 10.3 L (11.4-16.0) gm/dL Hct 33.5 L (34.0-46.0) % MCV 105.7 H (80.0-100.0) fL MCHC 30.6 L (31.0-37.0) g/dL Lymphocytes # 0.9 L (1.0-4.8) k/uL Chloride 110 H (98-107) mmol/L BUN 22 H (7-17) mg/dL Creatinine 1.18 H (0.52-1.04) mg/dL Albumin 3.4 L (3.5-5.0) g/dL Assessment and Plan Plan: Bilateral lower extremity cellulitis with large open ulcers with purulent discharge Underlying history of hypertension Underlying history of hyperlipidemia Underlying history of chronic bilateral lower extremity cellulitis with ulcers Possible underlying peripheral arterial disease Previous history of atrial flutter Underlying history of osteoarthritis Underlying history of chronic kidney disease At this time patient will be admitted to medical floor Home medications reviewed and reordered Patient was started on IV Zosyn and IV vancomycin in the emergency room Infectious disease consultation was requested For DVT prophylaxis subcu Lovenox Will consult vascular surgery to assess lower extremity circulation Will follow closely
--- NOTE | 2024-04-25 14:37 | P.GSCN ---
History of Present Illness Consult date: 04/25/24 Reason for Consult: PAD Requesting physician: Ten Guerrero History of present illness: This is a pleasant 83-year-old female with a past medical history including chronic venous wounds, venous stasis, morbid obesity, nonambulatory, hyperlipidemia, hypertension, chronic renal disease, and GERD who was brought in by EMS for concerns for infected wounds. Patient states she has a history of lower extremity wounds and was seen about a year ago at to [facility] wound clinic with Dr. Rubio and states that the wounds had healed. She has been admitted to [facility] for 9 months and states she was discharged on Mother's Day. During that time she states she was only getting wound care from [facility] and not the wound clinic. She has chronic lower extremity venous stasis dermatitis and venous and pressure wounds. States she has a nurse coming to the house who changes her dressings once a week other than that nobody changes her dressings. She lives with her son she is not on mobile and is mostly in bed or in the w heelchair. She states she cannot walk. States she wears briefs and soils herself and her neighbor will come and help change her. States she has had wounds to her lower extremities for some time now. Denies any fevers, chills, abdominal pain, nausea vomiting, shortness of breath or chest pain. Review of Systems A 14 point review systems was completed all pertinent positives and negatives as stated in the HPI. Past Medical History Past Medical History: GERD/Reflux, Hyperlipidemia, Hypertension, Osteoarthritis (OA), Renal Disease, Skin Disorder Additional Past Medical History / Comment(s): chronic low back/cervical and bilateral shoulder pain, benign colon polyps/diverticular disease, bilateral lo wer extremity cellulitis but R leg much more often, UTIs, polynephritis, hiatal hernia many years ago.dialysis, cellulitis/bilat lower extremity wounds History of Any Multi-Drug Resistant Organisms: None Reported Past Surgical History: Appendectomy, Cholecystectomy, Joint Replacement, Orthopedic Surgery, Tubal Ligation Additional Past Surgical History / Comment(s): Bilateral total knee arthroplasties, pain clinic procedures, colonoscopies/benign polypectomies, bilateral cataract removals/lens implants, PICC line. Past Anesthesia/Blood Transfusion Reactions: No Reported Reaction Past Psychological History: No Psychological Hx Reported Smoking Status: Never smoker Past Alcohol Use History: None Reported, Rare Past Drug Use History: None Reported - Past Family History Mother Family Medical History: Cancer Additional Family Medical History / Comment(s): BREAST CANCER. at 28 years old Father Family Medical History: Cancer Additional Family Medical History / Comment(s): LIVER CANCER/HEART PROBLEMS. Son(s) Family Medical History: Cancer Additional Family Medical History / Comment(s): MULTIPLE MYELOMA/bone cancer- PASSED 2015. Medications and Allergies Home Medications Medication Instructions Recorded Confirmed Type Montelukast [Singulair] 10 mg PO HS 08/18/19 04/25/24 History Pravastatin Sodium [Pravachol] 20 mg PO DAILY tab 08/15/23 04/25/24 Rx Acetaminophen [Tylenol Arthritis] 650 - 1,300 mg PO Q8H PRN 04/25/24 04/25/24 History Cephalexin [Keflex] 500 mg PO Q6H 04/25/24 04/25/24 History Furosemide [Lasix] 40 mg PO DAILY 04/25/24 04/25/24 History HYDROcodone/APAP 10-325MG [[place] 1 tab PO Q8H 04/25/24 04/25/24 History 10-325] Potassium Chloride [Klor-Con M20] 20 meq PO DAILY 04/25/24 04/25/24 History Allergies Allergy/AdvReac Type Severity Reaction Status Date / Time adhesive tape Allergy Unknown Rash/Hives Verified 04/25/24 10:36 Sulfa (Sulfonamide Allergy Rash/Hives Verified 04/25/24 10:36 Antibiotics) Surgical - Exam Vital Signs Temp Pulse Resp BP Pulse Ox 98.9 F 91 20 111/82 97 04/25/24 09:27 04/25/24 09:27 04/25/24 09:27 04/25/24 09:27 04/25/24 09:27 General appearance: The patient is alert, oriented, appears in no acute distress. Morbidly obese. HET: Head is normocephalic and atraumatic. Pupils are equal and reactive. Neck: Supple. Heart: Regular. Lungs: Equal expansion, normal respiratory effort. Abdomen: Soft, nontender, nondistended. Extremities: Palpable bilateral radial pulses. Palpable femoral and DP pulses bilaterally. Bilateral lower extremity venous stasis dermatitis with pressure ulcers to bilateral heels and dry gangrene ulcers to bilateral feet. Ulceration between toes and multiple ulcers on toes, bilateral feet. Neurological: Alert and oriented. Results Foot x-ray reports no evidence of acute - Labs 04/25/24 09:43 04/25/24 09:43 Abnormal Lab Results - Last 24 Hours (Table) 04/25/24 04/25/24 Range/Units 09:43 09:43 RBC 3.16 L (3.80-5.40) m/uL Hgb 10.3 L (11.4-16.0) gm/dL Hct 33.5 L (34.0-46.0) % MCV 105.7 H (80.0-100.0) fL MCHC 30.6 L (31.0-37.0) g/dL Lymphocytes # 0.9 L (1.0-4.8) k/uL Chloride 110 H (98-107) mmol/L BUN 22 H (7-17) mg/dL Creatinine 1.18 H (0.52-1.04) mg/dL Albumin 3.4 L (3.5-5.0) g/dL Diabetes panel 04/25/24 Range/Units 09:43 Sodium 140 (137-145) mmol/L Potassium 3.7 (3.5-5.1) mmol/L Chloride 110 H (98-107) mmol/L Carbon Dioxide 25 (22-30) mmol/L BUN 22 H (7-17) mg/dL Creatinine 1.18 H (0.52-1.04) mg/dL Glucose 87 (74-99) mg/dL Calcium 9.3 (8.4-10.2) mg/dL AST 19 (14-36) U/L ALT 9 (4-34) U/L Alkaline Phosphatase 89 (38-126) U/L Total Protein 6.3 (6.3-8.2) g/dL Albumin 3.4 L (3.5-5.0) g/dL Calcium panel 04/25/24 Range/Units 09:43 Calcium 9.3 (8.4-10.2) mg/dL Albumin 3.4 L (3.5-5.0) g/dL Pituitary panel 04/25/24 Range/Units 09:43 Sodium 140 (137-145) mmol/L Potassium 3.7 (3.5-5.1) mmol/L Chloride 110 H (98-107) mmol/L Carbon Dioxide 25 (22-30) mmol/L BUN 22 H (7-17) mg/dL Creatinine 1.18 H (0.52-1.04) mg/dL Glucose 87 (74-99) mg/dL Calcium 9.3 (8.4-10.2) mg/dL Adrenal panel 04/25/24 Range/Units 09:43 Sodium 140 (137-145) mmol/L Potassium 3.7 (3.5-5.1) mmol/L Chloride 110 H (98-107) mmol/L Carbon Dioxide 25 (22-30) mmol/L BUN 22 H (7-17) mg/dL Creatinine 1.18 H (0.52-1.04) mg/dL Glucose 87 (74-99) mg/dL Calcium 9.3 (8.4-10.2) mg/dL Total Bilirubin 0.4 (0.2-1.3) mg/dL AST 19 (14-36) U/L ALT 9 (4-34) U/L Alkaline Phosphatase 89 (38-126) U/L Total Protein 6.3 (6.3-8.2) g/dL Albumin 3.4 L (3.5-5.0) g/dL - Imaging Comments: Bilateral feet report no evidence of acute fracture. No evidence for osseous erosion. Severe degenerative changes of the first digit metatarsal phalangeal j oints with hallux valgus Assessment and Plan Assessment: 1. Venous insufficiency bilateral lower extremities 2. Venous stasis dermatitis bilateral lower extremities 3. Bilateral lower extremity venous ulcers 4. Bilateral heel pressure ulcers 5. Foot deformity, right greater than left 6. Morbid obesity 7. Nonambulatory Plan: 1. Wound cultures collected, currently pending 2. Consult wound clinic for local wound care, patient previously known to them 3. Offload pressure to bilateral heels, apply soft heel protectors 4. Will schedule patient for surgical debridement bilateral lower extremity venous/pressure ulcers 5. Consult to physical therapy 6. Recommend weight loss 7. Infectious disease on consult 8. Patient will need formal wound care on discharge with wound clinic 9. Consult case management for discharge planning and bilateral lower extremity braces with [facility] 10. Patient with adequate arterial blood flow, palpable +2 DP pulses. Patient with venous wounds and no further vascular workup indicated at this time Thank you for this consultation, we will continue to follow. The impression and plan of care has been dictated as directed. Dr. Singh I performed a history and examination of this patient, discussed the same with the dictator. I agree with the dictator's note ,documented as a scribe. Any additional findings or plans will be noted.
[2024-04-25] MEDS: HYDROcodone/APAP 10-325MG 1 EACH TAB PO SCH (15:13)
[2024-04-25] MEDS: MONTELUKAST 10 MG TAB PO SCH (21:37)
[2024-04-26] MEDS: PIPERACILLIN-TAZOBACTAM 3.375 GM in SODIUM CHLORIDE 0.9% 100 ML IVPB SCH (06:05)
--- NOTE | 2024-04-26 07:13 | P.CONS ---
History of Present Illness - Reason for Consult Consult date: 04/25/24 Wounds Requesting physician: Harris Acevedo - Chief Complaint Worsening pain to the lower extremity wounds x days - History of Present Illness Patient is a 83-year-old female with a past medical history significant for hypertension hyperlipidemia osteoarthritis reflux did have a history of lower extremity ulcers and cellulitis which apparently has healed however the patient mention she has been in the assisted and was not allowed to go to the wound care subsequently noticed to having reopening of the wound to the lower extremity and the patient complaining of increasing source to bilateral lower extremity and inability to stand up patient noticed to have foul order smell from the wound by the EMS patient denies high-grade fever or chills has been complaining of pain to the lower extremity to be sharp moderate intensity especially with the dressing changes did have mild drainage patient denies having any headache no chest pain shortness of breath or cough no nausea vomiting abdominal pain or diarrhea patient did not have any fever on presenta tion to the hospital nontachycardic hypotensive or hypoxic white count was 8.4 creatinine is 1.18 liver isms are normal culture has been obtained patient was started on vancomycin and Zosyn infectious disease was consulted for further management of antibiotic therapy Review of Systems Positive point and negatives has been mentioned in the HPI, complete review of systems was performed and all other systems are negative Past Medical History Past Medical History: GERD/Reflux, Hyperlipidemia, Hypertension, Osteoarthritis (OA), Renal Disease, Skin Disorder Additional Past Medical History / Comment(s): chronic low back/cervical and bilateral shoulder pain, benign colon polyps/diverticular disease, bilateral lower extremity cellulitis but R leg much more often, UTIs, polynephritis, hiatal hernia many years ago.dialysis, cellulitis/bilat lower extremity wounds History of Any Multi-Drug Resistant Organisms: None Reported Past Surgical History: Appendectomy, Cholecystectomy, Joint Replacement, Orthopedic Surgery, Tubal Ligation Additional Past Surgical History / Comment(s): Bilateral total knee arthroplasties, pain clinic procedures, colonoscopies/benign polypectomies, bilateral cataract removals/lens implants, PICC line. Past Anesthesia/Blood Transfusion Reactions: No Reported Reaction Past Psychological History: No Psychological Hx Reported Smoking Status: Never smoker Past Alcohol Use History: None Reported, Rare Past Drug Use History: None Reported - Past Family History Mother Family Medical History: Cancer Additional Family Medical History / Comment(s): BREAST CANCER. at 28 years old Father Family Medical History: Cancer Additional Family Medical History / Comment(s): LIVER CANCER/HEART PROBLEMS. Son(s) Family Medical History: Cancer Additional Family Medical History / Comment(s): MULTIPLE MYELOMA/bone cancer- PASSED 2015. Medications and Allergies Home Medications Medication Instructions Recorded Confirmed Type Montelukast [Singulair] 10 mg PO HS 08/18/19 04/25/24 History Pravastatin Sodium [Pravachol] 20 mg PO DAILY tab 08/15/23 04/25/24 Rx Acetaminophen [Tylenol Arthritis] 650 - 1,300 mg PO Q8H PRN 04/25/24 04/25/24 History Furosemide [Lasix] 40 mg PO DAILY 04/25/24 04/25/24 History HYDROcodone/APAP 10-325MG [[place] 1 tab PO Q8H 04/25/24 04/25/24 History 10-325] Potassium Chloride [Klor-Con M20] 20 meq PO DAILY 04/25/24 04/25/24 History Calamine/Zinc Oxide Lotion 1 applic TOPICAL QID PRN #1 each 05/02/24 Rx [Calamine Lotion] Ertapenem [INVanz] 500 mg IVPB Q24H 10 Days #10 each 05/04/24 Rx Allergies Allergy/AdvReac Type Severity Reaction Status Date / Time adhesive tape Allergy Unknown Rash/Hives Verified 04/25/24 10:36 Sulfa (Sulfonamide Allergy Rash/Hives Verified 04/25/24 10:36 Antibiotics) Physical Exam Vitals: Vital Signs Temp Pulse Resp BP Pulse Ox 04/25/24 16:10 98.9 F 84 16 130/79 96 04/25/24 15:10 87 17 134/80 96 04/25/24 13:10 82 17 121/73 97 04/25/24 12:00 97.9 F 85 18 135/78 97 04/25/24 11:10 85 16 128/77 95 04/25/24 10:30 89 18 152/85 98 04/25/24 10:06 85 17 96 04/25/24 09:27 98.9 F 91 20 111/82 97 Intake and Output 04/25/24 04/25/24 04/25/24 06:59 14:59 22:59 Other: Weight 74.389 kg GENERAL DESCRIPTION: Elderly female lying in bed, no distress. No tachypnea or accessory muscle of respiration use. HEENT: Shows Pallor , no scleral icterus. Oral mucous membrane is dry. NECK: Trachea central, no thyromegaly. LUNGS: Unlabored breathing. Clear to auscultation anteriorly. No wheeze or crackle. HEART: S1, S2, regular rate and rhythm. No loud murmur ABDOMEN: Soft, no tenderness , guarding or rigidity, no organomegaly EXTREMITIES: Bilateral lower extremity especially feet area wound with some slough tissue and necrotic area minimal redness SKIN: No rash, no masses palpable. NEUROLOGICAL: The patient is awake, alert, oriented x3, mood and affect normal. Results CBC & Chem 7: 05/04/24 06:07 05/04/24 06:07 Labs: Abnormal Lab Results - Last 24 Hours (Table) 04/25/24 04/25/24 Range/Units 09:43 09:43 RBC 3.16 L (3.80-5.40) m/uL Hgb 10.3 L (11.4-16.0) gm/dL Hct 33.5 L (34.0-46.0) % MCV 105.7 H (80.0-100.0) fL MCHC 30.6 L (31.0-37.0) g/dL Lymphocytes # 0.9 L (1.0-4.8) k/uL Chloride 110 H (98-107) mmol/L BUN 22 H (7-17) mg/dL Creatinine 1.18 H (0.52-1.04) mg/dL Albumin 3.4 L (3.5-5.0) g/dL Assessment and Plan (1) Bilateral lower leg cellulitis Current Visit: Yes Status: Acute Code(s): L03.116 - CELLULITIS OF LEFT LOWER LIMB; L03.115 - CELLULITIS OF RIGHT LOWER LIMB SNOMED Code(s): 183918511 (2) Pressure injury of right heel, stage 2 Current Visit: Yes Status: Acute Code(s): L89.612 - PRESSURE ULCER OF RIGHT HEEL, STAGE 2 SNOMED Code(s): 40527632652342 (3) Unstageable pressure ulcer of left foot Current Visit: Yes Status: Acute Code(s): L89.890 - PRESSURE ULCER OF OTHER SITE, UNSTAGEABLE SNOMED Code(s): 791772814 Plan: 1patient presented to hospital with lower extremity worsening wound with pain and concerning for wound infection and cellulitis with the last culture was predominantly Pseudomonas and E. coli likely from gram-negative pathogen. 2we will continue patient on Zosyn however discontinue vancomycin. 3local wound care with a dry Aquacel dressing change every 48 hours discussed with the nursing staff. We will follow on clinical condition and cultures to further adjust medication if needed Thank you for this consultation we will follow the patient along with you Dictation was produced using [employer] dictation software. please excuse any grammatical, word or spelling errors. Time with Patient: Greater than 30
[2024-04-26] MEDS ORDERED: ENOXAPARIN 40 MG/0.4 ML SYRINGE SQ SCH (09:00)
[2024-04-26] MEDS: PRAVASTATIN SODIUM 20 MG TAB PO SCH (09:16)
[2024-04-26] MEDS: ENOXAPARIN 30 MG/0.3 ML SYRINGE SQ SCH (09:17)
[2024-04-26 10:41] LABS: ALT 9 U/L (8-44); AST 23 U/L (13-35); Albumin 3.1 g/dL (3.8-4.9); Albumin/Globulin Ratio 1.24 Ratio (1.60-3.17); Alkaline Phosphatase 100 U/L (41-126); Calcium 8.5 mg/dL (8.7-10.3); Carbon Dioxide 20.7 mmol/L (21.6-31.8); Chloride 108 mmol/L (96-109); Globulin 2.5 g/dL (1.6-3.3); Glucose 90 mg/dL (70-110); Potassium 4.1 mmol/L (3.5-5.5); Sodium 140 mmol/L (135-145); Total Bilirubin <0.2 mg/dL (0.3-1.2); Total Protein 5.6 g/dL (6.2-8.2)
[2024-04-26] MEDS ORDERED: VANCOMYCIN 1,250 MG in SODIUM CHLORIDE 0.9% 250 ML IVPB SCH (11:00)
[2024-04-26 11:10] LABS: Acanthocytes 2+; Basophils # (A) 0.01 X 10*3/uL (0.00-0.10); Basophils % (A) 0.2 %; Eosinophils # (A) 0.24 X 10*3/uL (0.04-0.35); Eosinophils % (A) 4.3 %; HCT 31.2 % (37.2-46.3); HGB 8.9 g/dL (12.0-15.0); Lymphocytes # (A) 0.58 X 10*3/uL (0.90-5.00); Lymphocytes % (A) 10.4 %; MCH 31.8 pg (27.0-32.0); MCHC 28.5 g/dL (32.0-37.0); MCV 111.4 FL (80.0-97.0); Macrocytosis (M) 2+; Monocytes # (A) 0.28 X 10*3/uL (0.20-1.00); NRBC Per 100 WBC 0 X 10*3/uL (0.00-0.01); Neutrophils # (A) 4.36 X 10*3/uL (1.80-7.70); Neutrophils % (A) 77.8 %; Platelet Count 420 X 10*3/uL (140-440); RDW 13.4 % (11.5-14.5)
--- NOTE | 2024-04-26 11:46 | P.PN ---
Subjective Progress Note Date: 04/26/24 Principal diagnosis: Venous ulcers Patient is seen and examined today as a follow-up. She is sitting up at the bedside. No acute changes through the night. She has been afebrile. She was started on IV antibiotics per infectious disease recommendations. Objective - Vital Signs Vital signs: Vital Signs Temp 98.0 F 04/26/24 08:00 Pulse 88 04/26/24 08:00 Resp 17 04/26/24 08:00 BP 113/77 04/26/24 08:00 Pulse Ox 95 04/26/24 08:00 FiO2 Intake & Output 04/25/24 04/26/24 04/26/24 18:59 06:59 18:59 Intake Total 120 Output Total 300 Balance 120 -300 Weight 74.389 kg 84 kg Intake: Intake, IV Titration 20 Amount Sodium Chloride 0.9% 1, 20 000 ml @ 20 mls/hr IV . Q24H LOIDA Rx#:[id number] Oral 100 Output: Urine 300 Other: Voiding Method External Catheter External Catheter - Exam General appearance: The patient is alert, oriented, appears in no acute distres s. HET: Head is normocephalic and atraumatic. Neck: Supple. Heart: Regular. Lungs: Equal expansion, normal respiratory effort. Abdomen: Soft, nontender, nondistended. Extremities: Bilateral lower extremities with dressings clean dry and intact. Neurological: No focal deficits. Alert and oriented. - Labs CBC & Chem 7: 04/26/24 06:07 04/26/24 06:07 Labs: Abnormal Lab Results - Last 24 Hours (Table) 04/26/24 04/26/24 Range/Units 06:07 06:07 RBC 2.80 L (4.10-5.20) X 10*6/uL Hgb 8.9 L (12.0-15.0) g/dL Hct 31.2 L (37.2-46.3) % MCV 111.4 H (80.0-97.0) FL MCHC 28.5 L (32.0-37.0) g/dL Immature Gran # 0.13 H (0.00-0.04) X 10*3/uL Lymphocytes # 0.58 L (0.90-5.00) X 10*3/uL Macrocytosis (manual) 2+ A Acanthocytes (Spur) 2+ A Carbon Dioxide 20.7 L (21.6-31.8) mmol/L Est GFR (CKD-EPI) 37 L (>=60) Calcium 8.5 L (8.7-10.3) mg/dL Total Bilirubin <0.2 L (0.3-1.2) mg/dL Total Protein 5.6 L (6.2-8.2) g/dL Albumin 3.1 L (3.8-4.9) g/dL Albumin/Globulin Ratio 1.24 L (1.60-3.17) Ratio Microbiology - Last 24 Hours (Table) 04/25/24 09:43 Gram Stain - Preliminary Leg - Left Assessment and Plan Assessment: 1. Venous insufficiency bilateral lower extremities 2. Venous stasis dermatitis bilateral lower extremities 3. Bilateral lower extremity venous ulcers 4. Bilateral heel pressure ulcers 5. Foot deformity, right greater than left 6. Morbid obesity 7. Nonambulatory Plan: 1. Wound cultures collected, currently pending 2. Consult wound clinic for local wound care, patient previously known to them 3. Offload pressure to bilateral heels, apply soft heel protectors 4. Plan for surgical debridement bilateral lower extremity venous/pressure ulcers tomorrow 04/27/2024 5. Consult to physical therapy 6. Recommend weight loss 7. Infectious disease on consult 8. Patient will need formal wound care on discharge with wound clinic 9. Consult case management for discharge planning and bilateral lower extremity braces with [facility] 10. Patient with adequate arterial blood flow, palpable +2 DP pulses. Patient with venous wounds and no further vascular workup indicated at this time 11. Rest of medical management per primary medical team Thank you for this consultation, we will continue to follow. The impression and plan of care has been dictated as directed. Dr. Singh I performed a history and examination of this patient, discussed the same with the dictator. I agree with the dictator's note ,documented as a scribe. Any additional findings or plans will be noted.
--- NOTE | 2024-04-26 12:31 | P.CONS ---
History of Present Illness - Reason for Consult Consult date: 04/26/24 wound care - History of Present Illness This is an 83-year-old patient being seen on 4 S. for nonhealing ulcerations to the left heel right heel left lateral foot and right lower extremity. Patient is scheduled for surgical debridement tomorrow with vascular surgery. Patient has been a patient in the wound care center her last appointment was 06/22/2023 when she was unable to return due to transportation issues. Patient states that she has been following with wound care at home and at extended-care facility. Patient has a stage II pressure ulcer to the left heel, Unstageable pressure ulcer to the left lateral foot, a stage II pressure ulcer to the right heel, and a nonhealing ulceration with fat layer exposure to the right lower extremity. Patient has history of foot drop and has been seen by orthoticsTo assist with the brace to help with the foot drop. Review Of Systems: Constitutional: No fever, no chills, no night sweats. No weight change. No weakness, fatigue or lethargy. No daytime sleepiness. Integumentary:reports wounds, no lesions. No rash or pruritus. No unusual bruising. No change in hair or nails. Physical exam: General Appearance: Alert, cooperative, no distress, appears stated age. Skin: See HPI all other Skin color, texture, tugor normal, no rashes or lesions. Neurologic: Alert oriented x3 Assessment: 1. Unstageable pressure ulcer left lateral foot 2. Stage II pressure ulcer left heel 3. Stage II pressure ulcer right heel 4. Nonhealing ulceration with fat layer exposure right lower extremity. Plan: 1. Patient is utilizing absorptive silver to the site which is appropriate. Will wait until after her surgical debridement for further recommendations. Patient may return to the absorptive silver Postoperatively if okayed by vascular surgery. Would be happy to see patient in the wound care center however patient states that her only mode of transportation is on Tuesday to [place] and she does not want to see the Tuesday provider. She will discuss with her son for other alternatives. Thank you for the consultation any questions please contact the wound care center DNP note has been reviewed and discussed with Dr. Mcrae and the impression and plan of care has been directed as dictated. Past Medical History Past Medical History: GERD/Reflux, Hyperlipidemia, Hypertension, Osteoarthritis (OA), Renal Disease, Skin Disorder Additional Past Medical History / Comment(s): chronic low back/cervical and bilateral shoulder pain, benign colon polyps/diverticular disease, bilateral lower extremity cellulitis but R leg much more often, UTIs, polynephritis, hiatal hernia many years ago.dialysis, cellulitis/bilat lower extremity wounds History of Any Multi-Drug Resistant Organisms: None Reported Past Surgical History: Appendectomy, Cholecystectomy, Joint Replacement, Orthopedic Surgery, Tubal Ligation Additional Past Surgical History / Comment(s): Bilateral total knee arthroplasties, pain clinic procedures, colonoscopies/benign polypectomies, bilateral cataract removals/lens implants, PICC line. Past Anesthesia/Blood Transfusion Reactions: No Reported Reaction Past Psychological History: No Psychological Hx Reported Smoking Status: Never smoker Past Alcohol Use History: None Reported, Rare Past Drug Use History: None Reported - Past Family History Mother Family Medical History: Cancer Additional Family Medical History / Comment(s): BREAST CANCER. at 28 years old Father Family Medical History: Cancer Additional Family Medical History / Comment(s): LIVER CANCER/HEART PROBLEMS. Son(s) Family Medical History: Cancer Additional Family Medical History / Comment(s): MULTIPLE MYELOMA/bone cancer- PASSED 2015. Medications and Allergies Home Medications Medication Instructions Recorded Confirmed Type Montelukast [Singulair] 10 mg PO HS 08/18/19 04/25/24 History Pravastatin Sodium [Pravachol] 20 mg PO DAILY tab 08/15/23 04/25/24 Rx Acetaminophen [Tylenol Arthritis] 650 - 1,300 mg PO Q8H PRN 04/25/24 04/25/24 History Cephalexin [Keflex] 500 mg PO Q6H 04/25/24 04/25/24 History Furosemide [Lasix] 40 mg PO DAILY 04/25/24 04/25/24 History HYDROcodone/APAP 10-325MG [[place] 1 tab PO Q8H 04/25/24 04/25/24 History 10-325] Potassium Chloride [Klor-Con M20] 20 meq PO DAILY 04/25/24 04/25/24 History Allergies Allergy/AdvReac Type Severity Reaction Status Date / Time adhesive tape Allergy Unknown Rash/Hives Verified 04/25/24 10:36 Sulfa (Sulfonamide Allergy Rash/Hives Verified 04/25/24 10:36 Antibiotics) Physical Exam Vitals: Vital Signs Temp Pulse Pulse Resp BP BP Pulse Ox 04/26/24 08:00 98.0 F 88 17 113/77 95 04/26/24 02:42 98.3 F 57 L 16 113/79 93 L 04/25/24 20:04 97.5 F L 87 18 117/78 94 L 04/25/24 18:04 98.6 F 85 16 120/71 95 04/25/24 17:10 86 18 129/76 96 04/25/24 16:10 98.9 F 84 16 130/79 96 04/25/24 15:10 87 17 134/80 96 04/25/24 13:10 82 17 121/73 97 Intake and Output 04/25/24 04/26/24 04/26/24 22:59 06:59 14:59 Intake Total 120 Output Total 300 Balance 120 -300 Intake: Intake, IV Titration 20 Amount Sodium Chloride 0.9% 1, 20 000 ml @ 20 mls/hr IV . Q24H [facility] Rx#:[id number] Oral 100 Output: Urine 300 Other: Voiding Method External Catheter External Catheter Weight 84 kg Results CBC & Chem 7: 04/26/24 06:07 04/26/24 06:07 Labs: Abnormal Lab Results - Last 24 Hours (Table) 04/26/24 04/26/24 Range/Units 06:07 06:07 RBC 2.80 L (4.10-5.20) X 10*6/uL Hgb 8.9 L (12.0-15.0) g/dL Hct 31.2 L (37.2-46.3) % MCV 111.4 H (80.0-97.0) FL MCHC 28.5 L (32.0-37.0) g/dL Immature Gran # 0.13 H (0.00-0.04) X 10*3/uL Lymphocytes # 0.58 L (0.90-5.00) X 10*3/uL Macrocytosis (manual) 2+ A Acanthocytes (Spur) 2+ A Carbon Dioxide 20.7 L (21.6-31.8) mmol/L Est GFR (CKD-EPI) 37 L (>=60) Calcium 8.5 L (8.7-10.3) mg/dL Total Bilirubin <0.2 L (0.3-1.2) mg/dL Total Protein 5.6 L (6.2-8.2) g/dL Albumin 3.1 L (3.8-4.9) g/dL Albumin/Globulin Ratio 1.24 L (1.60-3.17) Ratio Microbiology - Last 24 Hours (Table) 04/25/24 09:43 Gram Stain - Preliminary Leg - Left Assessment and Plan (1) Unstageable pressure ulcer of left foot Current Visit: Yes Status: Acute Code(s): L89.890 - PRESSURE ULCER OF OTHER SITE, UNSTAGEABLE SNOMED Code(s): 536195988 (2) Pressure injury of right heel, stage 2 Current Visit: Yes Status: Acute Code(s): L89.612 - PRESSURE ULCER OF RIGHT HEEL, STAGE 2 SNOMED Code(s): 51927301193013 (3) Stage II pressure ulcer of left heel Current Visit: No Status: Acute Code(s): L89.622 - PRESSURE ULCER OF LEFT HEEL, STAGE 2 SNOMED Code(s): 98292880594089 (4) Venous stasis ulcer of right ankle with fat layer exposed Current Visit: No Status: Acute Code(s): I83.013 - VARICOSE VEINS OF RIGHT LOWER EXTREMITY WITH ULCER OF ANKLE; L97.312 - NON-PRS CHRONIC ULCER OF RIGHT ANKLE W FAT LAYER EXPOSED SNOMED Code(s): 340617989
--- NOTE | 2024-04-26 16:20 | P.PN ---
Subjective Progress Note Date: 04/26/24 Principal diagnosis: Reason for follow-up is bilateral lower extremity wound and cellulitis Patient is a 83-year-old female with a past medical history significant for hypertension hyperlipidemia osteoarthritis reflux did have a history of lower extremity ulcers and cellulitis presented to hospital worsening wound and cellulitis to bilateral lower extremity. On today's evaluation that is 04/26/2024,the patient denies any fever or any chills, patient is breathing comfortably on 2 L current oxygen the patient denies chest pain shortness of breath and no significant cough, patient denies abdominal pain, no nausea vomiting or diarrhea. Denies any worsening pain to bilateral lower extremity. Patient white count is 5.60, creatinine is 1.4 cultures growing gram-negative bacilli Objective - Vital Signs Vital signs: Vital Signs Temp 98.3 F 04/26/24 14:00 Pulse 87 04/26/24 14:00 Resp 17 04/26/24 14:00 BP 98/62 04/26/24 14:00 Pulse Ox 94 L 04/26/24 14:00 FiO2 Intake & Output 04/25/24 04/26/24 04/26/24 18:59 06:59 18:59 Intake Total 120 Output Total 300 Balance 120 -300 Weight 74.389 kg 84 kg Intake: Intake, IV Titration 20 Amount Sodium Chloride 0.9% 1, 20 000 ml @ 20 mls/hr IV . Q24H [facility] Rx#:[id number] Oral 100 Output: Urine 300 Other: Voiding Method External Catheter External Catheter - Exam GENERAL DESCRIPTION: An elderly female lying in bed in no distress RESPIRATORY SYSTEM: Unlabored breathing , decreased breath sounds at bases HEART: S1 S2 regular rate and rhythm , ABDOMEN: Soft , no tenderness EXTREMITIES: Bilateral leg wounds are currently dressed no drainage on the dressing - Labs CBC & Chem 7: 04/26/24 06:07 04/26/24 06:07 Labs: Abnormal Lab Results - Last 24 Hours (Table) 04/26/24 04/26/24 Range/Units 06:07 06:07 RBC 2.80 L (4.10-5.20) X 10*6/uL Hgb 8.9 L (12.0-15.0) g/dL Hct 31.2 L (37.2-46.3) % MCV 111.4 H (80.0-97.0) FL MCHC 28.5 L (32.0-37.0) g/dL Immature Gran # 0.13 H (0.00-0.04) X 10*3/uL Lymphocytes # 0.58 L (0.90-5.00) X 10*3/uL Macrocytosis (manual) 2+ A Acanthocytes (Spur) 2+ A Carbon Dioxide 20.7 L (21.6-31.8) mmol/L Est GFR (CKD-EPI) 37 L (>=60) Calcium 8.5 L (8.7-10.3) mg/dL Total Bilirubin <0.2 L (0.3-1.2) mg/dL Total Protein 5.6 L (6.2-8.2) g/dL Albumin 3.1 L (3.8-4.9) g/dL Albumin/Globulin Ratio 1.24 L (1.60-3.17) Ratio Microbiology - Last 24 Hours (Table) 04/25/24 09:43 Gram Stain - Preliminary Leg - Left Wound Culture - Preliminary Gram Neg Bacilli Assessment and Plan (1) Bilateral lower leg cellulitis Current Visit: Yes Status: Acute Code(s): L03.116 - CELLULITIS OF LEFT LOWER LIMB; L03.115 - CELLULITIS OF RIGHT LOWER LIMB SNOMED Code(s): 152681193 Plan: 1patient presented to hospital with lower extremity worsening wound with pain and concerning for wound infection and cellulitis with the last culture was predominantly Pseudomonas and E. coli likely from gram-negative pathogen. 2local culture currently growing gram-negative bacilli with ID sensitive pending continue with Zosyn while waiting for the culture to finalize Dictation was produced using [employer] dictation software. please excuse any grammatical, word or spelling errors. Time with Patient: Less than 30
--- NOTE | 2024-04-27 00:36 | PN ---
PROGRESS NOTE DATE OF SERVICE: 04/26/2024 I am covering for Dr. Guerrero. SUBJECTIVE: This is an 83-year-old woman, who was admitted with bilateral lower extremity swelling and large open ulcers and pain and drainage, is being closely monitored at this time. The patient has multiple complex medical issues also. The patient is on broad spectrum IV antibiotics. Cultures are negative so far. Infectious Disease and Vascular following the patient closely. Last culture was Pseudomonas and E coli. The patient is on IV Zosyn. PAST MEDICAL HISTORY: Reviewed. REVIEW OF SYSTEMS: Fourteen-point review is negative except as mentioned earlier. CURRENT MEDICATIONS: Reviewed include Zosyn. Rest of medications and doses noted. PHYSICAL EXAMINATION: VITAL SIGNS: Pulse is 88, blood pressure 113/77, respirations 17. CHEST: A few scattered rhonchi. ABDOMEN: Soft, nontender. LEGS: Bilateral leg cellulitis. NERVOUS SYSTEM: Nonfocal. LABORATORY DATA: Hemoglobin 8.9. The rest of the labs are noted. ASSESSMENT: 1. Bilateral lower extremity ulcers with pain and cellulitis. 2. Hypertension. 3. Hyperlipidemia. 4. 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 5. Peripheral vascular disease. 6. Atrial flutter. 7. Degenerative joint disease. 8. Multiple complex medical issues. 9. Chronic kidney disease, stage 3. RECOMMENDATIONS AND DISCUSSION: This is an 83-year-old woman, who presented with multiple complex medical issues, we will monitor the patient closely. The patient will be started on broad spectrum IV antibiotics. Pain management. I would also recommend DVT prophylaxis. Follow cultures. Symptomatic treatment. PT, OT evaluation. We will continue to monitor. Further recommendations to follow. MMODL / IJN: [id number] /
[2024-04-27] MEDS ORDERED: ZINC OXIDE PASTE (Z-GUARD) 1 APPLIC TOPICAL PRN (00:58)
[2024-04-27] MEDS: IV FLUID CONTINUATION 1,000 ML IV ONE (08:11)
[2024-04-27] MEDS ORDERED: PHENYLEPHRINE-0.9% NACL SYG 1,000 MCG/10 ML SYRINGE ONE (08:25)
[2024-04-27] MEDS ORDERED: fentaNYL (PF) 50 MCG/ML 2 ML AMP ONE (08:25)
[2024-04-27] MEDS ORDERED: SUCCINYLCHOLINE CHLORIDE 200 MG/10 ML VIAL IV ONE (08:25)
[2024-04-27] MEDS ORDERED: LIDOCAINE 1% INJ 10MG/ML (20 ML MDV) ONE (08:25)
[2024-04-27] MEDS ORDERED: PROPOFOL 10 MG/ML 20 ML VIAL IV ONE (08:25)
[2024-04-27] MEDS: diphenhydrAMINE 50 MG/ML 1 ML VIAL IVP STA ×2 (08:31→10:26)
[2024-04-27] MEDS: DEXAMETHASONE SOD PHOSPHATE 4 MG/ML 1 ML VIAL IVP ONE (08:34)
--- NOTE | 2024-04-27 09:26 | P.OP ---
Date of Procedure: 04/27/24 Description of Procedure: Preoperative diagnosis: Bilateral lower extremity wounds Postoperative diagnosis: Same Procedure: Sharp excisional debridement bilateral lower extremity wounds Left great toe 3.2 x 2.3 x 0.2 cm to bone Left heel 3.5 x 3 x 0.3 cm to subcutaneous tissue Left lateral foot 2.5 x 2.5 x 0.4 to bone, culture Right heel 2 x 0.5 x 0.2 cm to subcutaneous tissue Right third toe 1 x 0.9 x 0.2 cm to bone Surgeon: Kiki Singh D.O. EBL: Less than 5 cc IV fluids: See records Urine output: Not measured Drains: None Complications: None immediately apparent Condition: Stable to recovery Operative indication and findings: Patient is an 83-year-old female who is essentially bedridden due to deformities of her lower extremities who presents today for wounds of her bilateral lower extremities requiring debridement. Risk and benefits were discussed. She seemingly understands and is willing to proceed. Procedure in detail: Patient is taken the operative suite and placed in supine position. The bilateral lower extremities were prepped and draped in usual sterile fashion. A preprocedural timeout was performed, all parties were in agreement. Using a scrub brush the nonviable overlying tissue was debrided. Subsequently the wounds were debrided sharply with both scalpel and curette as well as scissors. The measurements and depth are as above. There was mild amount of purulent drainage from the left lateral foot therefore culture was obtained. Dressings were placed. The patient tolerated the procedure well.
[2024-04-27] MEDS: ALBUTEROL NEBULIZED 2.5 MG/3 ML INHALATION PRN (09:39)
[2024-04-27] MEDS: HYDROmorphone 0.5 MG/0.5 ML SYRINGE IVP PRN ×2 (09:45→17:02)
[2024-04-27] MEDS: ONDANSETRON 4 MG/2 ML VIAL IM STA (10:26)
[2024-04-27] MEDS: ONDANSETRON 4 MG/2 ML VIAL IVP STA (10:27)
[2024-04-27 10:39] LABS: ALT 10 U/L (8-44); AST 25 U/L (13-35); Albumin 3.2 g/dL (3.8-4.9); Albumin/Globulin Ratio 1.19 Ratio (1.60-3.17); Alkaline Phosphatase 94 U/L (41-126); BUN/Creat Ratio 13.06 Ratio (12.00-20.00); Blood Urea Nitrogen 20.9 mg/dL (9.0-27.0); Calcium 8.6 mg/dL (8.7-10.3); Carbon Dioxide 20.5 mmol/L (21.6-31.8); Chloride 104 mmol/L (96-109); Globulin 2.7 g/dL (1.6-3.3); Glucose 83 mg/dL (70-110); Sodium 138 mmol/L (135-145); Total Bilirubin 0.2 mg/dL (0.3-1.2); Total Protein 5.9 g/dL (6.2-8.2)
[2024-04-27 11:20] LABS: Basophils # (A) 0.02 X 10*3/uL (0.00-0.10); Basophils % (A) 0.2 %; Eosinophils # (A) 0.61 X 10*3/uL (0.04-0.35); Eosinophils % (A) 6.4 %; HCT 32.7 % (37.2-46.3); HGB 9.8 g/dL (12.0-15.0); Lymphocytes # (A) 0.85 X 10*3/uL (0.90-5.00); Lymphocytes % (A) 8.9 %; MCH 33.1 pg (27.0-32.0); MCV 110.5 FL (80.0-97.0); Mean Platelet Volume 10.1 FL (9.5-12.2); Monocytes # (A) 0.75 X 10*3/uL (0.20-1.00); Monocytes % (A) 7.9 %; NRBC Per 100 WBC 0 X 10*3/uL (0.00-0.01); Neutrophils # (A) 7.08 X 10*3/uL (1.80-7.70); Neutrophils % (A) 74.4 %; Platelet Count 431 X 10*3/uL (140-440); RBC 2.96 X 10*6/uL (4.10-5.20); RDW 13.4 % (11.5-14.5); WBC 9.52 X 10*3/uL (4.50-10.00)
--- NOTE | 2024-04-27 16:19 | P.PN ---
Subjective Progress Note Date: 04/27/24 Principal diagnosis: Reason for follow-up is bilateral lower extremity wound and cellulitis Patient is a 83-year-old female with a past medical history significant for hypertension hyperlipidemia osteoarthritis reflux did have a history of lower extremity ulcers and cellulitis presented to hospital worsening wound and cellulitis to bilateral lower extremity.Patient is status post sharp excisional debridement of bilateral extremity wound completed by vascular surger alejandro on 04/27/2024. On today's evaluation that is 04/27/2024,the patient remains to be afebrile, patient is on 2 L nasal cannula supplemental oxygen and denies any shortness of breath no chest pain or cough.Patient denies having any nausea or vomiting, no abdominal pain and no diarrhea has been reported denies any worsening pain to lower extremity 1. Patient white count is 9.52, creatinine is 1.6 local culture growing Morganella Proteus and Pseudomonas Objective - Vital Signs Vital signs: Vital Signs Temp 98 F 04/27/24 09:28 Pulse 99 04/27/24 11:00 Resp 12 04/27/24 11:00 BP 119/60 04/27/24 10:15 Pulse Ox 97 04/27/24 10:15 FiO2 Intake & Output 04/26/24 04/27/24 04/27/24 18:59 06:59 18:59 Intake Total 200 Output Total 500 250 5 Balance -500 -250 195 Intake: IV 200 Output: Urine 500 250 Estimated Blood Loss 5 Other: Voiding Method External Catheter External Catheter # Voids 1 # Bowel Movements 1 - Exam GENERAL DESCRIPTION: An elderly female lying in bed in no distress RESPIRATORY SYSTEM: Unlabored breathing , decreased breath sounds at bases HEART: S1 S2 regular rate and rhythm , ABDOMEN: Soft , no tenderness EXTREMITIES: Bilateral leg wounds are currently dressed no drainage on the d ressing - Labs CBC & Chem 7: 04/27/24 06:48 04/27/24 06:48 Labs: Abnormal Lab Results - Last 24 Hours (Table) 04/27/24 04/27/24 Range/Units 06:48 06:48 RBC 2.96 L (4.10-5.20) X 10*6/uL Hgb 9.8 L (12.0-15.0) g/dL Hct 32.7 L (37.2-46.3) % MCV 110.5 H (80.0-97.0) FL MCH 33.1 H (27.0-32.0) pg MCHC 30.0 L (32.0-37.0) g/dL Immature Gran # 0.21 H (0.00-0.04) X 10*3/uL Lymphocytes # 0.85 L (0.90-5.00) X 10*3/uL Eosinophils # 0.61 H (0.04-0.35) X 10*3/uL Carbon Dioxide 20.5 L (21.6-31.8) mmol/L Anion Gap 13.50 H (4.00-12.00) mmol/L Creatinine 1.6 H (0.6-1.5) mg/dL Est GFR (CKD-EPI) 32 L (>=60) Calcium 8.6 L (8.7-10.3) mg/dL Total Bilirubin 0.2 L (0.3-1.2) mg/dL Total Protein 5.9 L (6.2-8.2) g/dL Albumin 3.2 L (3.8-4.9) g/dL Albumin/Globulin Ratio 1.19 L (1.60-3.17) Ratio Microbiology - Last 24 Hours (Table) 04/25/24 09:43 Gram Stain - Preliminary Leg - Left Wound Culture - Preliminary Gram Neg Bacilli 04/25/24 09:43 Blood Culture - Preliminary Blood 04/25/24 09:55 Blood Culture - Preliminary Blood Assessment and Plan (1) Bilateral lower leg cellulitis Current Visit: Yes Status: Acute Code(s): L03.116 - CELLULITIS OF LEFT LOWER LIMB; L03.115 - CELLULITIS OF RIGHT LOWER LIMB SNOMED Code(s): 267190226 Plan: 1patient presented to hospital with lower extremity worsening wound with pain and concerning for wound infection and cellulitis with the last culture was predominantly Pseudomonas and E. coli likely from gram-negative pathogen. 2local culture currently growing Morganella Proteus and Pseudomonas, Pseudomonas sensitivity pending continue with Zosyn and continue local wound c are as ordered Dictation was produced using [employer] software. please excuse any grammatical, word or spelling errors. Time with Patient: Less than 30
--- NOTE | 2024-04-28 02:04 | PN ---
PROGRESS NOTE DATE OF SERVICE: 04/27/2024 I am covering for Dr. Guerrero. SUBJECTIVE: This 83-year-old woman was admitted with bilateral lower extremity ulcers with pain and cellulitis, is being closely monitored at this time. The wound culture is growing gram- negative bacilli. No chest pain, no palpitation. OBJECTIVE: VITAL SIGNS: Pulse is 121, blood pressure 97/50, respirations 16. CHEST: Clear to auscultation. CARDIOVASCULAR: S1, S2. ABDOMEN: Soft. NERVOUS SYSTEM: Nonfocal. LABORATORY DATA: Noted. ASSESSMENT: 1. Bilateral lower extremity ulcers with pain and cellulitis. 2. Hypertension. 3. Hyperlipidemia. 4. 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 5. Peripheral vascular disease. 6. Atrial flutter history. 7. Degenerative joint disease. 8. Multiple complex medical issues. 9. Chronic kidney stage 3. RECOMMENDATIONS: Recommended to continue current medications, continue symptomatic treatment. Otherwise at this time recommend remote tele as well as a portable chest x-ray. If the tachycardia persists, I will recommend EKG evaluation and Cardiology consultation also. MMODL / IJN: [id number] /
[2024-04-28 09:22] LABS: Basophils # (A) 0.03 X 10*3/uL (0.00-0.10); Basophils % (A) 0.3 %; Eosinophils # (A) 0.77 X 10*3/uL (0.04-0.35); HCT 31.3 % (37.2-46.3); HGB 9.2 g/dL (12.0-15.0); Lymphocytes # (A) 0.61 X 10*3/uL (0.90-5.00); Lymphocytes % (A) 5.5 %; MCH 32.6 pg (27.0-32.0); MCHC 29.4 g/dL (32.0-37.0); Mean Platelet Volume 9.8 FL (9.5-12.2); Monocytes # (A) 0.75 X 10*3/uL (0.20-1.00); Monocytes % (A) 6.8 %; NRBC Per 100 WBC 0 X 10*3/uL (0.00-0.01); Neutrophils % (A) 78.5 %; Platelet Count 419 X 10*3/uL (140-440); RBC 2.82 X 10*6/uL (4.10-5.20); RDW 13.6 % (11.5-14.5); WBC 11.07 X 10*3/uL (4.50-10.00)
[2024-04-28 11:13] LABS: BUN/Creat Ratio 12.39 Ratio (12.00-20.00); Blood Urea Nitrogen 22.3 mg/dL (9.0-27.0); Calcium 8.6 mg/dL (8.7-10.3); Carbon Dioxide 19.7 mmol/L (21.6-31.8); Chloride 106 mmol/L (96-109); Glucose 88 mg/dL (70-110); Potassium 4.4 mmol/L (3.5-5.5); Sodium 141 mmol/L (135-145)
[2024-04-28] MEDS: diphenhydrAMINE 50 MG/ML 1 ML VIAL IVP SCH (11:39)
--- NOTE | 2024-04-28 15:07 | P.PN ---
Subjective Progress Note Date: 04/28/24 Principal diagnosis: Reason for follow-up is bilateral lower extremity wound and cellulitis Patient is a 83-year-old female with a past medical history significant for hypertension hyperlipidemia osteoarthritis reflux did have a history of lower extremity ulcers and cellulitis presented to hospital worsening wound and cellulitis to bilateral lower extremity.Patient is status post sharp excisional debridement of bilateral extremity wound completed by vascular surger alejandro on 04/27/2024. On today's evaluation that is 04/28/2024, the patient continues to be afebrile, the patient is on room air and breathing comfortably, the Pt denies having any chest pain or cough, the patient denies having any abdominal pain no vomiting or any diarrhea has been reported by the nursing staff, patient complaining of mostly itching no worsening rash reported by the nursing staff. Patient white count is 11.07, creatinine is 1.8 culture with Pseudomonas Morganella and Proteus all cultures pending Objective - Vital Signs Vital signs: Vital Signs Temp 98.7 F 04/28/24 07:02 Pulse 87 04/28/24 07:02 Resp 17 04/28/24 08:00 BP 90/59 04/28/24 07:02 Pulse Ox 90 L 04/28/24 07:02 FiO2 Intake & Output 04/27/24 04/28/24 04/28/24 18:59 06:59 18:59 Intake Total 200 240 Output Total 5 700 Balance 195 -460 Intake: IV 200 Oral 240 Output: Urine 700 Estimated Blood Loss 5 Other: Voiding Method External Catheter External Catheter # Voids 1 0 - Exam GENERAL DESCRIPTION: An elderly female lying in bed in no distress RESPIRATORY SYSTEM: Unlabored breathing , decreased breath sounds at bases HEART: S1 S2 regular rate and rhythm , ABDOMEN: Soft , no tenderness EXTREMITIES: Bilateral leg wounds are currently dressed no drainage on the dressing - Labs CBC & Chem 7: 04/28/24 06:09 04/28/24 06:09 Labs: Abnormal Lab Results - Last 24 Hours (Table) 04/28/24 04/28/24 Range/Units 06:09 06:09 WBC 11.07 H (4.50-10.00) X 10*3/uL RBC 2.82 L (4.10-5.20) X 10*6/uL Hgb 9.2 L (12.0-15.0) g/dL Hct 31.3 L (37.2-46.3) % MCV 111.0 H (80.0-97.0) FL MCH 32.6 H (27.0-32.0) pg MCHC 29.4 L (32.0-37.0) g/dL Immature Gran # 0.21 H (0.00-0.04) X 10*3/uL Neutrophils # 8.70 H (1.80-7.70) X 10*3/uL Lymphocytes # 0.61 L (0.90-5.00) X 10*3/uL Eosinophils # 0.77 H (0.04-0.35) X 10*3/uL Carbon Dioxide 19.7 L (21.6-31.8) mmol/L Anion Gap 15.30 H (4.00-12.00) mmol/L Creatinine 1.8 H (0.6-1.5) mg/dL Calcium 8.6 L (8.7-10.3) mg/dL Microbiology - Last 24 Hours (Table) 04/25/24 09:43 Gram Stain - Final Leg - Left Wound Culture - Final Pseudomonas aeruginosa Morganella morganii Proteus mirabilis 04/27/24 09:11 Gram Stain - Preliminary Foot - Left 04/25/24 09:55 Blood Culture - Preliminary Blood 04/25/24 09:43 Blood Culture - Preliminary Blood 04/25/24 09:43 Anaerobic Culture - Final Leg - Left Assessment and Plan (1) Bilateral lower leg cellulitis Current Visit: Yes Status: Acute Code(s): L03.116 - CELLULITIS OF LEFT LOWER LIMB; L03.115 - CELLULITIS OF RIGHT LOWER LIMB SNOMED Code(s): 171514705 Plan: 1patient presented to hospital with lower extremity worsening wound with pain and concerning for wound infection and cellulitis with the last culture was predominantly Pseudomonas and E. coli likely from gram-negative pathogen. 2local culture currently growing Morganella Proteus and Pseudomonas, patient has developed itching could be related to Zosyn which will be discontinued and the patient to be started on cefepime dosages to the kidney function will reeval the patient tomorrow Dictation was produced using [employer] dictation software. please excuse any grammatical, word or spelling errors. Time with Patient: Less than 30
--- NOTE | 2024-04-28 18:00 | PN ---
PROGRESS NOTE DATE OF SERVICE: 04/28/2024 SUBJECTIVE: This 83-year-old woman was admitted with bilateral leg cellulitis and ulcer and pain, cellulitis is being closely monitored. The patient has severe itching. No chest pain. No palpitation. OBJECTIVE: VITAL SIGNS: Pulse is 87, blood pressure 90/59, respirations 17. CHEST: Clear to auscultation. ABDOMEN: Soft. LEGS: Bilateral leg cellulitis. Skin excoriations present. LABORATORY DATA: WBC 11.07, eosinophils 0.77. ASSESSMENT: 1. Bilateral lower extremity ulcers with pain and cellulitis. 2. Hypertension. 3. Hyperlipidemia. 4. Diffuse itching, possibly allergic reaction. 5. 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 6. Peripheral vascular disease. 7. Multiple complex medical issues. RECOMMENDATIONS: Continue current management, continue symptomatic treatment. Continue with the Benadryl. Otherwise, closely follow with Infectious Disease regarding antibiotics. Repeat labs will be ordered. Further recommendations to follow. MMODL / IJN: [id number] /
[2024-04-28] MEDS: CEFEPIME 2 GM in SODIUM CHLORIDE 0.9% 100 ML IVPB SCH (21:55)
[2024-04-28] MEDS: CALAMINE/ZINC OXIDE LOTION 177 ML BTL TOPICAL PRN (21:57)
[2024-04-29] MEDS ORDERED: PIPERACILLIN-TAZOBACTAM 3.375 GM in SODIUM CHLORIDE 0.9% 100 ML IVPB SCH
[2024-04-29 09:32] LABS: Basophils # (A) 0.02 X 10*3/uL (0.00-0.10); Basophils % (A) 0.2 %; Eosinophils # (A) 0.87 X 10*3/uL (0.04-0.35); Eosinophils % (A) 7.2 %; HCT 30.5 % (37.2-46.3); HGB 9.1 g/dL (12.0-15.0); Lymphocytes # (A) 0.71 X 10*3/uL (0.90-5.00); Lymphocytes % (A) 5.9 %; MCH 32.7 pg (27.0-32.0); MCHC 29.8 g/dL (32.0-37.0); MCV 109.7 FL (80.0-97.0); Mean Platelet Volume 9.7 FL (9.5-12.2); Monocytes # (A) 1.06 X 10*3/uL (0.20-1.00); Monocytes % (A) 8.7 %; NRBC Per 100 WBC 0 X 10*3/uL (0.00-0.01); Neutrophils # (A) 9.27 X 10*3/uL (1.80-7.70); Neutrophils % (A) 76.4 %; Platelet Count 428 X 10*3/uL (140-440); RBC 2.78 X 10*6/uL (4.10-5.20); RDW 13.6 % (11.5-14.5); WBC 12.13 X 10*3/uL (4.50-10.00)
[2024-04-29] MEDS: CEFEPIME 1 GM in SODIUM CHLORIDE 0.9% 50 ML IVPB SCH (10:11)
[2024-04-29 10:58] LABS: ALT 10 U/L (8-44); AST 21 U/L (13-35); Albumin 3.3 g/dL (3.8-4.9); Albumin/Globulin Ratio 1.57 Ratio (1.60-3.17); Alkaline Phosphatase 92 U/L (41-126); BUN/Creat Ratio 13.94 Ratio (12.00-20.00); Blood Urea Nitrogen 23.7 mg/dL (9.0-27.0); Calcium 8.8 mg/dL (8.7-10.3); Carbon Dioxide 19.2 mmol/L (21.6-31.8); Chloride 105 mmol/L (96-109); Globulin 2.1 g/dL (1.6-3.3); Glucose 97 mg/dL (70-110); Potassium 3.9 mmol/L (3.5-5.5); Sodium 138 mmol/L (135-145); Total Bilirubin 0.2 mg/dL (0.3-1.2); Total Protein 5.4 g/dL (6.2-8.2)
[2024-04-29] MEDS: methylPREDNISolone SOD SUCCI 125 MG/2 ML VIAL IV STA (12:51)
--- NOTE | 2024-04-29 14:05 | XR ---
EXAMINATION TYPE: XR chest 1V portable DATE OF EXAM: 04/29/2024 Comparison: 08/01/2023 Clinical History: 83-year-old female CHF Findings: Heart is moderately enlarged. Increased interstitial and perihilar opacities. New small left pleural effusion. Possible trace right effusion. Loss of the subacromial space on both sides. Impression: Mild to moderate cardiomegaly with pulmonary vascular congestion. Mild left and trace right pleural e ffusions. Chronic bilateral full-thickness cuff tears.
--- NOTE | 2024-04-29 16:02 | P.PN ---
Subjective Progress Note Date: 04/29/24 Principal diagnosis: Reason for follow-up is bilateral lower extremity wound and cellulitis Patient is a 83-year-old female with a past medical history significant for hypertension hyperlipidemia osteoarthritis reflux did have a history of lower extremity ulcers and cellulitis presented to hospital worsening wound and cellulitis to bilateral lower extremity.Patient is status post sharp excisional debridement of bilateral extremity wound completed by vascular surger alejandro on 04/27/2024. On today's evaluation that is 04/29/2024, Patient is afebrile patient is currently on room air and denies having any shortness of breath, the patient denies any chest pain or cough, the patient denies any nausea vomiting did not have any abdominal pain and no diarrhea, the patient denies any worsening pain to the lower extremity wound and did have improvement in her itching. Patient white count is 12.13, creatinine is 1.7 OR cultures growing gram- negative bacilli Objective - Vital Signs Vital signs: Vital Signs Temp 98.7 F 04/29/24 12:49 Pulse 95 04/29/24 12:49 Resp 16 04/29/24 12:49 BP 120/78 04/29/24 12:49 Pulse Ox 94 L 04/29/24 12:49 FiO2 Intake & Output 04/28/24 04/29/24 04/29/24 18:59 06:59 18:59 Other: Voiding Method External Catheter External Catheter # Voids 0 - Exam GENERAL DESCRIPTION: An elderly female lying in bed in no distress RESPIRATORY SYSTEM: Unlabored breathing , decreased breath sounds at bases HEART: S1 S2 regular rate and rhythm , ABDOMEN: Soft , no tenderness EXTREMITIES: Bilateral leg wounds are currently dressed no drainage on the dressing - Labs CBC & Chem 7: 04/29/24 05:02 04/29/24 05:02 Labs: Abnormal Lab Results - Last 24 Hours (Table) 04/29/24 04/29/24 Range/Units 05:02 05:02 WBC 12.13 H (4.50-10.00) X 10*3/uL RBC 2.78 L (4.10-5.20) X 10*6/uL Hgb 9.1 L (12.0-15.0) g/dL Hct 30.5 L (37.2-46.3) % MCV 109.7 H (80.0-97.0) FL MCH 32.7 H (27.0-32.0) pg MCHC 29.8 L (32.0-37.0) g/dL Immature Gran # 0.20 H (0.00-0.04) X 10*3/uL Neutrophils # 9.27 H (1.80-7.70) X 10*3/uL Lymphocytes # 0.71 L (0.90-5.00) X 10*3/uL Monocytes # 1.06 H (0.20-1.00) X 10*3/uL Eosinophils # 0.87 H (0.04-0.35) X 10*3/uL Carbon Dioxide 19.2 L (21.6-31.8) mmol/L Anion Gap 13.80 H (4.00-12.00) mmol/L Creatinine 1.7 H (0.6-1.5) mg/dL Est GFR (CKD-EPI) 29 L (>=60) Total Bilirubin 0.2 L (0.3-1.2) mg/dL Total Protein 5.4 L (6.2-8.2) g/dL Albumin 3.3 L (3.8-4.9) g/dL Albumin/Globulin Ratio 1.57 L (1.60-3.17) Ratio Microbiology - Last 24 Hours (Table) 04/27/24 09:11 Gram Stain - Preliminary Foot - Left Wound Culture - Preliminary Gram Neg Bacilli 04/25/24 09:55 Blood Culture - Preliminary Blood 04/25/24 09:43 Blood Culture - Preliminary Blood Assessment and Plan (1) Bilateral lower leg cellulitis Current Visit: Yes Status: Acute Code(s): L03.116 - CELLULITIS OF LEFT LOWER LIMB; L03.115 - CELLULITIS OF RIGHT LOWER LIMB SNOMED Code(s): 022191282 Plan: 1patient presented to hospital with lower extremity worsening wound with pain and concerning for wound infection and cellulitis with the last culture was predominantly Pseudomonas and E. coli likely from gram-negative pathogen. 2local culture currently growing Morganella Proteus and Pseudomonas, patient has developed itching could be related to Zosyn which will be discontinued 3-we will continue patient on cefepime while waiting for the OR cultures to be finalized to determine discharge antibiotics Dictation was produced using [employer] dictation software. please excuse any grammatical, word or spelling errors. Time with Patient: Less than 30
[2024-04-29] MEDS: FUROSEMIDE 10 MG/ML 2 ML VIAL IV ONE (20:39)
--- NOTE | 2024-04-30 05:24 | PN ---
PROGRESS NOTE DATE OF SERVICE: 04/29/2024 SUBJECTIVE: This 83-year-old woman was admitted with bilateral leg cellulitis and ulcer and pain, was on antibiotics. The patient has significant itching and possibly antibiotic- induced reaction. Antibiotics are being changed from Zosyn to cefepime by Dr. Babin. The patient has mild eosinophilia. PAST MEDICAL HISTORY: Reviewed. REVIEW OF SYSTEMS: 14-point review is negative. CURRENT MEDICATIONS: Reviewed. PHYSICAL EXAM: VITAL SIGNS: Pulse is 94, blood pressure 103/62, respirations 16. CHEST: Few scattered rhonchi. ABDOMEN: Soft, nontender. LEGS: Bilateral leg cellulitis. Significant itching present. Mild rash present. LABORATORY DATA: WBC 12.13, hemoglobin 9.1. Rest of the labs are noted. Creatinine 1.7. ASSESSMENT: 1. Bilateral lower extremity ulcers and pain and cellulitis. 2. Possible drug rash with eosinophilia. 3. Hypertension. 4. Hyperlipidemia. 5. Chronic bilateral lower extremity cellulitis, ulcers. 6. Peripheral vascular disease. 7. Multiple complex medical issues. RECOMMENDATIONS: Recommend to continue current medications, continue symptomatic treatment, otherwise, recommend continue with Benadryl, single dose of steroids, cefepime has been noted. Repeat labs. Avoid nephrotoxic medications. I would also recommend a chest x-ray. Increase IV fluids and monitor creatinine also closely. We will stop the Lovenox and instead we will use subcu heparin. See orders for details. MMODL / IJN: [id number] /
[2024-04-30 06:39] LABS: African American GFR (CKD) 33 (>60 ml/min/1.73 sqM); Anion Gap 8 mmol/L; Blood Urea Nitrogen 28 mg/dL (7-17); Calcium 8.9 mg/dL (8.4-10.2); Carbon Dioxide 20 mmol/L (22-30); Chloride 108 mmol/L (98-107); Glucose 156 mg/dL (74-99); Non-African American GFR(CKD) 29 (>60 ml/min/1.73 sqM); Potassium 4.1 mmol/L (3.5-5.1); Sodium 136 mmol/L (137-145)
[2024-04-30 07:19] LABS: HCT 30.9 % (34.0-46.0); HGB 9.1 gm/dL (11.4-16.0); Hypochromasia Marked; MCH 32.2 pg (25.0-35.0); MCHC 29.6 g/dL (31.0-37.0); MCV 108.8 fL (80.0-100.0); Macrocytosis Marked; Mean Platelet Volume 7.9; Platelet Count 410 k/uL (150-450); RBC 2.84 m/uL (3.80-5.40); RDW 13.3 % (11.5-15.5); WBC 12.7 k/uL (3.8-10.6)
[2024-04-30 12:00] LABS: Lymphocytes # (M) 0.76 k/uL (1.0-4.8); Monocytes # (M) 1.02 k/uL (0-1.0); Myelocytes # (M) 0.13 k/uL (0); Myelocytes % 1 %; Neutrophils # (M) 10.92 k/uL (1.3-7.7); Neutrophils % (M) 86 %; Nucleated Red Blood Cells 0 /100 WBC (0-0); Total Cells Counted 200
--- NOTE | 2024-05-01 06:54 | P.PN ---
Subjective Progress Note Date: 04/30/24 This is a 83-year-old female who was recently admitted with bilateral lower extremity cellulitis with ulcers and pain with vascular surgery and infectious disease following. Patient is status post debridement and awaiting on finalized cultures to determine discharge antibiotics. Patient did have a possible allergic drug rash reaction to Zosyn which has been transition to cefepime currently. Patient will need a med/PICC line to continue IV antibiotic therapy. Discussing possible discharge planning options and patient would like to return home with home care and reports has previously had IV antibiotics in the home setting and can manage. Will discuss further with infectious disease and also have case management verify coverage and work on discharge planning. Patient is inquiring when she can go home. Patient is afebrile with no reports of chest pain or shortness of breath. Review of systems: Constitutional: No reports of fatigue, fever, or chills Cardiovascular: No reports of chest pain or palpitations Respiratory: No reports of shortness of breath or cough GI: No reports of nausea, no reports of vomiting, no diarrhea : No reports of dysuria or retention Neurovascular: reports of generalized weakness, lower extremity pain All medications have been reviewed PHYSICAL EXAMINATION: GENERAL: The patient is alert and oriented x4, Well developed, well nourished. Elderly appearing, obese HEENT: Pupils are round and equally reacting to light. EOMI. no scleral icterus. No conjunctival pallor. Normocephalic, atraumatic. No pharyngeal erythema. No thyromegaly. CARDIOVASCULAR: S1 and S2 muffled PULMONARY: diminished breath sounds bilaterally with no wheezing or rhonchi noted. ABDOMEN: soft. Nontender on exam. obese. non-distended, normoactive bowel sounds. No palpable organomegaly. MUSCULOSKELETAL: No joint swelling or deformity. EXTREMITIES: No cyanosis, clubbing, or pedal edema. Lower extremity bilateral dressings that are currently dry and intact NEUROLOGICAL: Gross neurological examination did not reveal any focal deficits. Diffuse weakness SKIN: No rashes. Assessment: Bilateral lower extremity pain with cellulitis, present on admission Possible drug rash with eosinophilia secondary to Zosyn, which has been discontinued Hypertension history Hyperlipidemia Chronic bilateral lower extremity Peripheral vascular disease Obesity with a BMI 33.9 GI prophylaxis DVT prophylaxis Full code Plan: Recommend to continue with current medications and management with infectious disease following. Patient currently maintained on cefepime and awaiting fi nalized cultures to determine discharge antibiotics. Patient will be scheduled for a PICC line and arranging for IV antibiotics on discharge. Case management following as patient reports she would like to go home with antibiotics. Patient may benefit from rehab wound care and IV antibiotics although patient is adamant she is returning home. Follow-up on repeat labs and continue to monitor closely Possible discharge planning in the next 24 to 48 hours Encouraged elevating lower extremities while at rest and dressing changes Complex medical issues, prognosis is guarded The impression and plan of care has been dictated by Florina Carvajal, nurse practitioner as directed. Dr. Gerard MD I have performed a history and examination and MDM of this patient, discussed the same with the dictator, and agree with the dictator's assessment and plan as written ,documented as a scribe. Based on total visit time, I have performed more than 50% of the visit. Any additional findings or plans will be noted. Objective - Vital Signs Vital signs: Vital Signs Temp 97.4 F L 04/30/24 06:48 Pulse 72 04/30/24 09:05 Resp 18 04/30/24 09:05 BP 98/63 04/30/24 06:48 Pulse Ox 94 L 04/30/24 08:39 FiO2 Intake & Output 04/29/24 04/30/24 04/30/24 18:59 06:59 18:59 Output Total 800 600 Balance -800 -600 Output: Urine 800 600 Other: Voiding Method External Catheter External Catheter External Catheter - Labs CBC & Chem 7: 04/30/24 06:57 04/30/24 05:33 Labs: Abnormal Lab Results - Last 24 Hours (Table) 04/30/24 04/30/24 Range/Units 05:33 06:57 WBC 12.7 H (3.8-10.6) k/uL RBC 2.84 L (3.80-5.40) m/uL Hgb 9.1 L (11.4-16.0) gm/dL Hct 30.9 L (34.0-46.0) % MCV 108.8 H (80.0-100.0) fL MCHC 29.6 L (31.0-37.0) g/dL Neutrophils # (Manual) 10.92 H (1.3-7.7) k/uL Lymphocytes # (Manual) 0.76 L (1.0-4.8) k/uL Monocytes # (Manual) 1.02 H (0-1.0) k/uL Myelocytes # (Manual) 0.13 H (0) k/uL Macrocytosis Marked A Sodium 136 L (137-145) mmol/L Chloride 108 H (98-107) mmol/L Carbon Dioxide 20 L (22-30) mmol/L BUN 28 H (7-17) mg/dL Creatinine 1.64 H (0.52-1.04) mg/dL Glucose 156 H (74-99) mg/dL Microbiology - Last 24 Hours (Table) 04/27/24 09:11 Gram Stain - Final Foot - Left Wound Culture - Final Morganella morganii Enterococcus faecalis VRE 04/27/24 09:11 Anaerobic Culture - Preliminary Foot - Left
[2024-05-01 08:36] LABS: HCT 28.2 % (37.2-46.3); HGB 8.6 g/dL (12.0-15.0); MCH 32.7 pg (27.0-32.0); MCHC 30.5 g/dL (32.0-37.0); MCV 107.2 FL (80.0-97.0); Mean Platelet Volume 9.5 FL (9.5-12.2); NRBC Per 100 WBC 0.02 X 10*3/uL (0.00-0.01); Platelet Count 445 X 10*3/uL (140-440); RBC 2.63 X 10*6/uL (4.10-5.20); RDW 13.6 % (11.5-14.5); WBC 12.98 X 10*3/uL (4.50-10.00)
[2024-05-01 08:51] LABS: Blood Urea Nitrogen 30.6 mg/dL (9.0-27.0); Calcium 8.7 mg/dL (8.7-10.3); Carbon Dioxide 24.9 mmol/L (21.6-31.8); Chloride 108 mmol/L (96-109); Glucose 83 mg/dL (70-110); Magnesium 1.7 mg/dL (1.5-2.4); Sodium 144 mmol/L (135-145)
[2024-05-01 09:36] LABS: Basophils # (M) 0 X 10*3/uL (0.00-0.10); Neutrophils # (M) 9.48 X 10*3/uL (1.80-7.70); Neutrophils % (M) 73 %
[2024-05-01 10:13] LABS: Acanthocytes 2+; Eosinophils # (M) 0.39 X 10*3/uL (0.04-0.35); Lymphocytes # (M) 0.52 X 10*3/uL (0.90-5.00); Macrocytosis (M) 2+; Metamyelocytes % 1 % (0-0); Monocytes # (M) 2.21 X 10*3/uL (0.20-1.00); Myelocytes % 2 % (0-0)
--- NOTE | 2024-05-01 13:31 | P.PN ---
Subjective Progress Note Date: 04/30/24 Principal diagnosis: Reason for follow-up is bilateral lower extremity wound and cellulitis Patient is a 83-year-old female with a past medical history significant for hypertension hyperlipidemia osteoarthritis reflux did have a history of lower extremity ulcers and cellulitis presented to hospital worsening wound and cellulitis to bilateral lower extremity.Patient is status post sharp excisional debridement of bilateral extremity wound completed by vascular surger alejandro on 04/27/2024. On today's evaluation that is 04/30/2024, patient has been afebrile, patient is breathing comfortably and is currently on room air, patient denies having any significant cough no chest pain shortness of breath, patient denies nausea vomiting or diarrhea and no abdominal pain and no worsening pain to bilateral lower extremity wound area. Patient white count is 12.7 creatinine is 1.64, repeat cultures are growing Morganella that is sensitive to cefepime however multidrug-resistant VRE with only gentamicin and streptomycin synergy Objective - Vital Signs Vital signs: Vital Signs Temp 98.1 F 04/30/24 13:25 Pulse 86 04/30/24 13:25 Resp 18 04/30/24 13:25 BP 92/53 04/30/24 13:25 Pulse Ox 92 L 04/30/24 13:25 FiO2 Intake & Output 04/29/24 04/30/24 04/30/24 18:59 06:59 18:59 Output Total 800 600 Balance -800 -600 Output: Urine 800 600 Other: Voiding Method External Catheter External Catheter External Catheter - Exam GENERAL DESCRIPTION: An elderly female lying in bed in no distress RESPIRATORY SYSTEM: Unlabored breathing , decreased breath sounds at bases HEART: S1 S2 regular rate and rhythm , ABDOMEN: Soft , no tenderness EXTREMITIES: Bilateral leg wounds are currently dressed no drainage on the dressing - Labs CBC & Chem 7: 05/01/24 05:48 05/01/24 05:48 Labs: Abnormal Lab Results - Last 24 Hours (Table) 04/30/24 04/30/24 Range/Units 05:33 06:57 WBC 12.7 H (3.8-10.6) k/uL RBC 2.84 L (3.80-5.40) m/uL Hgb 9.1 L (11.4-16.0) gm/dL Hct 30.9 L (34.0-46.0) % MCV 108.8 H (80.0-100.0) fL MCHC 29.6 L (31.0-37.0) g/dL Neutrophils # (Manual) 10.92 H (1.3-7.7) k/uL Lymphocytes # (Manual) 0.76 L (1.0-4.8) k/uL Monocytes # (Manual) 1.02 H (0-1.0) k/uL Myelocytes # (Manual) 0.13 H (0) k/uL Macrocytosis Marked A Sodium 136 L (137-145) mmol/L Chloride 108 H (98-107) mmol/L Carbon Dioxide 20 L (22-30) mmol/L BUN 28 H (7-17) mg/dL Creatinine 1.64 H (0.52-1.04) mg/dL Glucose 156 H (74-99) mg/dL Microbiology - Last 24 Hours (Table) 04/25/24 09:55 Blood Culture - Final Blood 04/25/24 09:43 Blood Culture - Final Blood 04/27/24 09:11 Gram Stain - Final Foot - Left Wound Culture - Final Morganella morganii Enterococcus faecalis VRE 04/27/24 09:11 Anaerobic Culture - Preliminary Foot - Left Assessment and Plan (1) Bilateral lower leg cellulitis Current Visit: Yes Status: Acute Code(s): L03.116 - CELLULITIS OF LEFT LOWER LIMB; L03.115 - CELLULITIS OF RIGHT LOWER LIMB SNOMED Code(s): 773470731 Plan: 1patient presented to hospital with lower extremity worsening wound with pain and concerning for wound infection and cellulitis with the last culture was predominantly Pseudomonas and E. coli likely from gram-negative pathogen. 2local culture currently growing Morganella Proteus and Pseudomonas, patient has developed itching could be related to Zosyn which has been discontinued 3-OR cultures are now growing Morganella and a drug-resistant VRE with no option at this point we are trying to contact the micro lab to see if there are any options available which may be hidden , for now continue with the cefepime Dictation was produced using [employer] dictation software. please excuse any grammatical, word or spelling errors. Time with Patient: Less than 30
--- NOTE | 2024-05-01 13:33 | P.PN ---
Subjective Progress Note Date: 05/01/24 Principal diagnosis: Reason for follow-up is bilateral lower extremity wound and cellulitis Patient is a 83-year-old female with a past medical history significant for hypertension hyperlipidemia osteoarthritis reflux did have a history of lower extremity ulcers and cellulitis presented to hospital worsening wound and cellulitis to bilateral lower extremity.Patient is status post sharp excisional debridement of bilateral extremity wound completed by vascular surger alejandro on 04/27/2024. On today's evaluation that is 05/01/2024, Patient is afebrile this morning and denies any chills, patient mention breathing comfortably and is currently on room air, patient denies any chest pain occasional cough patient denies any abdominal pain no diarrhea no nausea no vomiting, patient denies any worsening pain to bilateral lower extremity wound area. Patient white count is 12.98 creatinine is 1.7 Objective - Vital Signs Vital signs: Vital Signs Temp 97.8 F 05/01/24 06:49 Pulse 78 05/01/24 06:49 Resp 16 05/01/24 06:49 BP 101/62 05/01/24 06:49 Pulse Ox 92 L 05/01/24 06:49 FiO2 Intake & Output 04/30/24 05/01/24 05/01/24 18:59 06:59 18:59 Output Total 1000 300 Balance -1000 -300 Output: Urine 1000 300 Other: Voiding Method External Catheter External Catheter # Bowel Movements 0 - Exam GENERAL DESCRIPTION: An elderly female lying in bed in no distress RESPIRATORY SYSTEM: Unlabored breathing , decreased breath sounds at bases HEART: S1 S2 regular rate and rhythm , ABDOMEN: Soft , no tenderness EXTREMITIES: Bilateral leg wounds are mostly superficial except the wound on the left foot at the base of the fifth toe we did have some necrotic tissue but no purulent drainage - Labs CBC & Chem 7: 05/01/24 05:48 05/01/24 05:48 Labs: Abnormal Lab Results - Last 24 Hours (Table) 05/01/24 05/01/24 Range/Units 05:48 05:48 WBC 12.98 H (4.50-10.00) X 10*3/uL RBC 2.63 L (4.10-5.20) X 10*6/uL Hgb 8.6 L (12.0-15.0) g/dL Hct 28.2 L (37.2-46.3) % MCV 107.2 H (80.0-97.0) FL MCH 32.7 H (27.0-32.0) pg MCHC 30.5 L (32.0-37.0) g/dL Plt Count 445 H (140-440) X 10*3/uL Neutrophils # (Manual) 9.48 H (1.80-7.70) X 10*3/uL Lymphocytes # (Manual) 0.52 L (0.90-5.00) X 10*3/uL Monocytes # (Manual) 2.21 H (0.20-1.00) X 10*3/uL Eosinophils # (Manual) 0.39 H (0.04-0.35) X 10*3/uL NRBC/100 WBC Diff 0.02 H (0.00-0.01) X 10*3/uL Macrocytosis (manual) 2+ A Acanthocytes (Spur) 2+ A BUN 30.6 H (9.0-27.0) mg/dL Creatinine 1.7 H (0.6-1.5) mg/dL Est GFR (CKD-EPI) 29 L (>=60) Microbiology - Last 24 Hours (Table) 04/25/24 09:55 Blood Culture - Final Blood 04/25/24 09:43 Blood Culture - Final Blood Assessment and Plan (1) Bilateral lower leg cellulitis Current Visit: Yes Status: Acute Code(s): L03.116 - CELLULITIS OF LEFT LOWER LIMB; L03.115 - CELLULITIS OF RIGHT LOWER LIMB SNOMED Code(s): 720388134 Plan: 1patient presented to hospital with lower extremity worsening wound with pain and concerning for wound infection and cellulitis with the last culture was predominantly Pseudomonas and E. coli likely from gram-negative pathogen. 2local culture currently growing Morganella Proteus and Pseudomonas, patient has developed itching could be related to Zosyn which has been discontinued 3-OR cultures are now growing Morganella and a drug-resistant VRE I did contact the micro lab and talk to them personally unfortunately there are no other drugs in the here and sensitivity that are sensitive it is resistant to daptomycin and linezolid and tigecycline only showing his synergistic effect with the gentamicin and streptomycin keeping in mind her kidney function and only synergistic activity it would not be worthwhile using those drugs more risk of nephrotoxins and any benefit keeping in mind her ulcer has been mostly superficial we will consider treatment with cefepime only for 2 weeks and see clinical response however the patient to consider risk for any worsening wound especially if VRE is playing a role which we do not have any treatment for at this point Dictation was produced using [email or web address] software. please excuse any grammatical, word or spelling errors. Time with Patient: Greater than 30
[2024-05-01] MEDS: HYDROcodone/APAP 5-325MG 1 EACH TAB PO PRN (17:34)
--- NOTE | 2024-05-01 19:18 | P.PN ---
Subjective Progress Note Date: 05/01/24 This is a 83-year-old female who was recently admitted with bilateral lower extremity cellulitis with ulcers and pain with vascular surgery and infectious disease following. Patient is status post debridement and awaiting on finalized cultures to determine discharge antibiotics. Patient did have a possible allergic drug rash reaction to Zosyn which has been transition to cefepime currently. Patient will need a med/PICC line to continue IV antibiotic therapy. Discussing possible discharge planning options and patient would like to return home with home care and reports has previously had IV antibiotics in the home setting and can manage. Will discuss further with infectious disease and also have case management verify coverage and work on discharge planning. Patient is inquiring when she can go home. Patient is afebrile with no reports of chest pain or shortness of breath. 05/01/2024 Patient is seen in follow-up today maintained on IV antibiotics with infectious disease following and has received a midline and plans on returning home with home care and reports has her son to help administer IV medications. Patient has close outpatient follow-up and continue on local wound care to her lower extremities. Patient is afebrile with no reports of chest pain or shortness of breath. Patient has been tolerating diet with no reported nausea or vomiting. Patient reports she currently has no ride available today and arranging for discharge planning. Will discuss with case management/social work regarding discharge planning with probable discharge home in 24 hours. Review of systems: Constitutional: No reports of fatigue, fever, or chills Cardiovascular: No reports of chest pain or palpitations Respiratory: No reports of shortness of breath or cough GI: No reports of nausea, no reports of vomiting, no diarrhea : No reports of dysuria or retention Neurovascular: reports of generalized weakness, lower extremity pain All medications have been reviewed PHYSICAL EXAMINATION: GENERAL: The patient is alert and oriented x4, Well developed, well nourished. Elderly appearing, obese HEENT: Pupils are round and equally reacting to light. EOMI. no scleral icterus. No conjunctival pallor. Normocephalic, atraumatic. No pharyngeal erythema. No thyromegaly. CARDIOVASCULAR: S1 and S2 muffled PULMONARY: diminished breath sounds bilaterally with no wheezing or rhonchi not ed. ABDOMEN: soft. Nontender on exam. obese. non-distended, normoactive bowel sounds. No palpable organomegaly. MUSCULOSKELETAL: No joint swelling or deformity. EXTREMITIES: No cyanosis, clubbing, or pedal edema. Lower extremity bilateral dressings that are currently dry and intact NEUROLOGICAL: Gross neurological examination did not reveal any focal deficits. Diffuse weakness SKIN: No rashes. Assessment: Bilateral lower extremity pain with cellulitis, present on admission Possible drug rash with eosinophilia secondary to Zosyn, which has been discontinued, improved Hypertension history Hyperlipidemia Chronic bilateral lower extremity Peripheral vascular disease Obesity with a BMI 33.9 GI prophylaxis DVT prophylaxis Full code Plan: Recommend to continue with current medications and management with infectious disease following. Patient currently maintained on cefepime and cultures have finalized with Multiple Resistance with Morganella Morganii and Enterococcus VRE. Patient will likely continue cefepime on discharge and close outpatient follow-up with infectious disease Patient has received a PICC line/midline. Case management following as patient reports she would like to go home with antibiotics. Arranging for discharge planning needs and will likely be ready for home care tomorrow. Patient does have a ride that can get her in the morning. Would likely Patient may benefit from rehab for continued and refusing rehab wound care and IV antibiotics although patient is adamant she is returning home. Follow-up on repeat labs and continue to monitor closely Possible discharge planning in the next 24 hours Encouraged elevating lower extremities while at rest and dressing changes Due to multiple complex medical issues, prognosis is guarded The impression and plan of care has been dictated by Florina Carvajal, nurse practitioner as directed. Dr. Gerard MD I have performed a history and examination and MDM of this patient, discussed the same with the dictator, and agree with the dictator's assessment and plan as written ,documented as a scribe. Based on total visit time, I have performed more than 50% of the visit. Any additional findings or plans will be noted. Objective - Vital Signs Vital signs: Vital Signs Temp 98.0 F 05/01/24 01:35 Pulse 83 05/01/24 01:35 Resp 16 05/01/24 01:35 BP 104/61 05/01/24 01:35 Pulse Ox 94 L 05/01/24 01:35 FiO2 Intake & Output 04/30/24 04/30/24 05/01/24 06:59 18:59 06:59 Output Total 600 1000 300 Balance -600 -1000 -300 Output: Urine 600 1000 300 Other: Voiding Method External Catheter External Catheter External Catheter # Bowel Movements 0 - Labs CBC & Chem 7: 05/01/24 05:48 05/01/24 05:48 Labs: Abnormal Lab Results - Last 24 Hours (Table) 04/30/24 Range/Units 06:57 WBC 12.7 H (3.8-10.6) k/uL RBC 2.84 L (3.80-5.40) m/uL Hgb 9.1 L (11.4-16.0) gm/dL Hct 30.9 L (34.0-46.0) % MCV 108.8 H (80.0-100.0) fL MCHC 29.6 L (31.0-37.0) g/dL Neutrophils # (Manual) 10.92 H (1.3-7.7) k/uL Lymphocytes # (Manual) 0.76 L (1.0-4.8) k/uL Monocytes # (Manual) 1.02 H (0-1.0) k/uL Myelocytes # (Manual) 0.13 H (0) k/uL Macrocytosis Marked A Microbiology - Last 24 Hours (Table) 04/25/24 09:55 Blood Culture - Final Blood 04/25/24 09:43 Blood Culture - Final Blood
[2024-05-02] MEDS: ERTAPENEM 1 GM in SODIUM CHLORIDE 0.9% 50 ML IVPB ONE (12:45)
[2024-05-02 13:58] VITALS: BMI 33.8
--- NOTE | 2024-05-02 16:34 | P.PN ---
Subjective Progress Note Date: 05/02/24 Principal diagnosis: Reason for follow-up is bilateral lower extremity wound and cellulitis Patient is a 83-year-old female with a past medical history significant for hypertension hyperlipidemia osteoarthritis reflux did have a history of lower extremity ulcers and cellulitis presented to hospital worsening wound and cellulitis to bilateral lower extremity.Patient is status post sharp excisional debridement of bilateral extremity wound completed by vascular surger alejandro on 04/27/2024. On today's evaluation that is 05/02/2024,the patient denies any fever or any chills, patient is breathing comfortably on room air, the patient denies chest pain shortness of breath and no significant cough, patient denies abdominal pain, no nausea vomiting or diarrhea. Denies worsening pain to the leg wounds. No new lab has been obtained today Objective - Vital Signs Vital signs: Vital Signs Temp 97.8 F 05/02/24 07:25 Pulse 91 05/02/24 07:25 Resp 18 05/02/24 07:25 BP 112/66 05/02/24 07:25 Pulse Ox 92 L 05/02/24 07:25 FiO2 Intake & Output 05/01/24 05/02/24 05/02/24 18:59 06:59 18:59 Output Total 900 1400 900 Balance -900 -1400 -900 Output: Urine 900 1400 900 Other: Voiding Method External Catheter - Exam GENERAL DESCRIPTION: An elderly female lying in bed in no distress RESPIRATORY SYSTEM: Unlabored breathing , decreased breath sounds at bases HEART: S1 S2 regular rate and rhythm , ABDOMEN: Soft , no tenderness EXTREMITIES: Bilateral leg wounds are currently dressed - Labs CBC & Chem 7: 05/01/24 05:48 05/01/24 05:48 Labs: Microbiology - Last 24 Hours (Table) 04/27/24 09:11 Anaerobic Culture - Final Foot - Left Assessment and Plan (1) Bilateral lower leg cellulitis Current Visit: Yes Status: Acute Code(s): L03.116 - CELLULITIS OF LEFT LOWER LIMB; L03.115 - CELLULITIS OF RIGHT LOWER LIMB SNOMED Code(s): 372250596 Plan: 1patient presented to hospital with lower extremity worsening wound with pain and concerning for wound infection and cellulitis with the last culture was predominantly Pseudomonas and E. coli likely from gram-negative pathogen. 2local culture currently growing Morganella Proteus and Pseudomonas, patient has developed itching could be related to Zosyn which has been discontinued 3-OR cultures are now growing Morganella and a drug-resistant VRE I did contact the micro lab and talk to them personally unfortunately there are no other drugs in the here and sensitivity that are sensitive it is resistant to daptomycin and linezolid and tigecycline only showing his synergistic effect with the gentamicin and streptomycin keeping in mind her kidney function and only synergistic activity it would not be worthwhile using those drugs more risk of nephrotoxins 4-with the patient going home it may be easier to do ertapenem 500 mg daily then IV cefepime twice a day prescription has been switched over to ertapenem for 10 days at the close outpatient follow-up Dictation was produced using [employer] dictation software. please excuse any grammatical, word or spelling errors. Time with Patient: Less than 30
--- NOTE | 2024-05-03 05:24 | P.PN ---
Subjective Progress Note Date: 05/02/24 This is a 83-year-old female who was recently admitted with bilateral lower extremity cellulitis with ulcers and pain with vascular surgery and infectious disease following. Patient is status post debridement and awaiting on finalized cultures to determine discharge antibiotics. Patient did have a possible allergic drug rash reaction to Zosyn which has been transition to cefepime currently. Patient will need a med/PICC line to continue IV antibiotic therapy. Discussing possible discharge planning options and patient would like to return home with home care and reports has previously had IV antibiotics in the home setting and can manage. Will discuss further with infectious disease and also have case management verify coverage and work on discharge planning. Patient is inquiring when she can go home. Patient is afebrile with no reports of chest pain or shortness of breath. 05/01/2024 Patient is seen in follow-up today maintained on IV antibiotics with infectious disease following and has received a midline and plans on returning home with home care and reports has her son to help administer IV medications. Patient has close outpatient follow-up and continue on local wound care to her lower extremities. Patient is afebrile with no reports of chest pain or shortness of breath. Patient has been tolerating diet with no reported nausea or vomiting. Patient reports she currently has no ride available today and arranging for discharge planning. Will discuss with case management/social work regarding discharge planning with probable discharge home in 24 hours. 05/02/2024 Patient is seen in follow-up this morning continued on IV antibiotics with infectious disease following. Patient will continue antibiotic therapy on discharge and patient was adamant about going home. After further discussion with patient and son, he is unable to care for her in the home and assist with IV antibiotics as he works. Patient is now agreeable to ECF and case management is following working on referrals. Patient is afebrile with no reports of chest pain or shortness of breath. Patient has been tolerating diet with no reported nausea or vomiting. Will follow-up on repeat labs and continue to monitor closely. Review of systems: Constitutional: No reports of fatigue, fever, or chills Cardiovascular: No reports of chest pain or palpitations Respiratory: No reports of shortness of breath or cough GI: No reports of nausea, no reports of vomiting, no diarrhea : No reports of dysuria or retention Neurovascular: reports of generalized weakness, continued lower extremity pain All medications have been reviewed PHYSICAL EXAMINATION: GENERAL: The patient is alert and oriented x3, Well developed, well nourished. Elderly appearing, obese HEENT: Pupils are round and equally reacting to light. EOMI. no scleral icterus. No conjunctival pallor. Normocephalic, atraumatic. No pharyngeal erythema. No thyromegaly. CARDIOVASCULAR: S1 and S2 muffled PULMONARY: diminished breath sounds bilaterally with no wheezing or rhonchi noted. ABDOMEN: soft. Nontender on exam. obese. non-distended, normoactive bowel sounds. No palpable organomegaly. MUSCULOSKELETAL: No joint swelling or deformity. EXTREMITIES: No cyanosis, clubbing, or pedal edema. Lower extremity bilateral dressings that are currently dry and intact NEUROLOGICAL: Gross neurological examination did not reveal any focal deficits. Diffuse weakness SKIN: No rashes. Assessment: Bilateral lower extremity pain with cellulitis, present on admission Possible drug rash with eosinophilia secondary to Zosyn, which has been discontinued, improved Hypertension history Hyperlipidemia Chronic bilateral lower extremity Peripheral vascular disease Obesity with a BMI 33.9 GI prophylaxis DVT prophylaxis Full code Plan: Recommend to continue with current medications and management with infectious disease following. Patient currently maintained on cefepime and cultures have finalized with Multiple Resistance with Morganella Morganii and Enterococcus VRE. Patient will continue IV antibiotics on discharge and close outpatient follow-up with infectious disease Patient has received a midline. Case management following as patient was adamant about going home with home care. Son discussed further with case management and is unable to care for the patient in the home with IV antibiotics as he works and would like patient to go to [facility] for IV antibiotic therapy. Patient is now agreeable and case management has placed referrals to ECF. Follow-up on repeat labs and continue to monitor closely Encouraged elevating lower extremities while at rest and dressing changes Due to multiple complex medical issues, prognosis is guarded The impression and plan of care has been dictated by Florina Carvajal, nurse practitioner as directed. Dr. Gerard MD I have performed a history and examination and MDM of this patient, discussed the same with the dictator, and agree with the dictator's assessment and plan as written ,documented as a scribe. Based on total visit time, I have performed more than 50% of the visit. Any additional findings or plans will be noted. Objective - Vital Signs Vital signs: Vital Signs Temp 97.8 F 05/02/24 07:25 Pulse 91 05/02/24 07:25 Resp 18 05/02/24 07:25 BP 112/66 05/02/24 07:25 Pulse Ox 92 L 05/02/24 07:25 FiO2 Intake & Output 05/01/24 05/02/24 05/02/24 18:59 06:59 18:59 Output Total 900 1400 900 Balance -900 -1400 -900 Weight 84 kg Output: Urine 900 1400 900 Other: Voiding Method External Catheter # Bowel Movements 1 - Labs CBC & Chem 7: 05/01/24 05:48 05/01/24 05:48 Labs: Microbiology - Last 24 Hours (Table) 04/27/24 09:11 Anaerobic Culture - Final Foot - Left
[2024-05-03 08:07] LABS: Basophils # (A) 0.1 k/uL (0-0.2); Basophils % (A) 1 %; Eosinophils # (A) 0.6 k/uL (0-0.7); Eosinophils % (A) 5 %; Hypochromasia Moderate; Lymphocytes # (A) 1.6 k/uL (1.0-4.8); Lymphocytes % (A) 12 %; MCH 32.6 pg (25.0-35.0); MCHC 30.4 g/dL (31.0-37.0); MCV 107.5 fL (80.0-100.0); Macrocytosis Moderate; Mean Platelet Volume 7.7; Monocytes # (A) 1.3 k/uL (0-1.0); Monocytes % (A) 10 %; Neutrophils # (A) 9.2 k/uL (1.3-7.7); Neutrophils % (A) 69 %; Platelet Count 513 k/uL (150-450); RBC 3.07 m/uL (3.80-5.40); RDW 13.5 % (11.5-15.5); WBC 13.2 k/uL (3.8-10.6)
[2024-05-03 08:08] LABS: African American GFR (CKD) 40 (>60 ml/min/1.73 sqM); Anion Gap 7 mmol/L; Blood Urea Nitrogen 31 mg/dL (7-17); Calcium 8.9 mg/dL (8.4-10.2); Carbon Dioxide 27 mmol/L (22-30); Chloride 105 mmol/L (98-107); Glucose 80 mg/dL (74-99); Non-African American GFR(CKD) 35 (>60 ml/min/1.73 sqM); Potassium 3.9 mmol/L (3.5-5.1); Sodium 139 mmol/L (137-145)
[2024-05-03 09:05] LABS: Eosinophils # (M) 1.32 k/uL (0-0.7); Lymphocytes # (M) 3.17 k/uL (1.0-4.8); Metamyelocytes # (M) 0.26 k/uL (0); Metamyelocytes % 2 %; Monocytes # (M) 1.45 k/uL (0-1.0); Myelocytes # (M) 0.53 k/uL (0); Myelocytes % 4 %; Neutrophils # (M) 6.73 k/uL (1.3-7.7); Neutrophils % (M) 51 %; Nucleated Red Blood Cells 0 /100 WBC (0-0); Polychromasia Present; Total Cells Counted 200
[2024-05-03 09:06] LABS: Toxic Vacuolation Present
[2024-05-03] MEDS: ERTAPENEM 0.5 GM in SODIUM CHLORIDE 0.9% 50 ML IVPB SCH (14:39)
--- NOTE | 2024-05-03 16:21 | P.PN ---
Subjective Progress Note Date: 05/03/24 Principal diagnosis: Reason for follow-up is bilateral lower extremity wound and cellulitis Patient is a 83-year-old female with a past medical history significant for hypertension hyperlipidemia osteoarthritis reflux did have a history of lower extremity ulcers and cellulitis presented to hospital worsening wound and cellulitis to bilateral lower extremity.Patient is status post sharp excisional debridement of bilateral extremity wound completed by vascular surger alejandro on 04/27/2024. On today's evaluation that is 05/03/2024,the patient remains to be afebrile, patient is on room air not requiring supplemental oxygen and denies any shortness of breath no chest pain or cough.Patient denies having any nausea or vomiting, no abdominal pain and no diarrhea denies any worsening pain to the lower extremity wounds. Patient did have a white count of 13.2 creatinine is 1.40 Objective - Vital Signs Vital signs: Vital Signs Temp 98.2 F 05/03/24 07:43 Pulse 96 05/03/24 07:43 Resp 17 05/03/24 07:43 BP 122/79 05/03/24 07:43 Pulse Ox 92 L 05/03/24 07:43 FiO2 Intake & Output 05/02/24 05/03/24 05/03/24 18:59 06:59 18:59 Output Total 900 Balance -900 Weight 84 kg Output: Urine 900 Other: Voiding Method External Catheter External Catheter # Voids 1 # Bowel Movements 1 1 1 - Exam GENERAL DESCRIPTION: An elderly female lying in bed in no distress RESPIRATORY SYSTEM: Unlabored breathing , decreased breath sounds at bases HEART: S1 S2 regular rate and rhythm , ABDOMEN: Soft , no tenderness EXTREMITIES: Bilateral leg wounds are currently dressed - Labs CBC & Chem 7: 05/03/24 06:36 05/03/24 06:36 Labs: Abnormal Lab Results - Last 24 Hours (Table) 05/03/24 05/03/24 Range/Units 06:36 06:36 WBC 13.2 H (3.8-10.6) k/uL RBC 3.07 L (3.80-5.40) m/uL Hgb 10.0 L (11.4-16.0) gm/dL Hct 33.0 L (34.0-46.0) % MCV 107.5 H (80.0-100.0) fL MCHC 30.4 L (31.0-37.0) g/dL Plt Count 513 H (150-450) k/uL Neutrophils # 9.2 H (1.3-7.7) k/uL Monocytes # 1.3 H (0-1.0) k/uL Monocytes # (Manual) 1.45 H (0-1.0) k/uL Eosinophils # (Manual) 1.32 H (0-0.7) k/uL Metamyelocytes # (Man) 0.26 H (0) k/uL Myelocytes # (Manual) 0.53 H (0) k/uL BUN 31 H (7-17) mg/dL Creatinine 1.40 H (0.52-1.04) mg/dL Assessment and Plan (1) Bilateral lower leg cellulitis Current Visit: Yes Status: Acute Code(s): L03.116 - CELLULITIS OF LEFT LOWER LIMB; L03.115 - CELLULITIS OF RIGHT LOWER LIMB SNOMED Code(s): 715086791 Plan: 1patient presented to hospital with lower extremity worsening wound with pain and concerning for wound infection and cellulitis with the last culture was predominantly Pseudomonas and E. coli likely from gram-negative pathogen. 2local culture currently growing Morganella Proteus and Pseudomonas, patient has developed itching could be related to Zosyn which has been discontinued 3-OR cultures are now growing Morganella and a drug-resistant VRE I did contact the micro lab and talk to them personally unfortunately there are no other drugs in the here and sensitivity that are sensitive it is resistant to daptomycin and linezolid and tigecycline only showing his synergistic effect with the gentamicin and streptomycin keeping in mind her kidney function and only synergistic activity it would not be worthwhile using those drugs more risk of nephrotoxins 4-patient better has been adjusted to Invanz which will be continued , currently waiting for placement white count is trending up need to be monitored closely Dictation was produced using [employer] software. please excuse any grammatical, word or spelling errors. Time with Patient: Less than 30
[2024-05-04 02:42] VITALS: RESP 17
--- NOTE | 2024-05-04 06:00 | P.PN ---
Subjective Progress Note Date: 05/03/24 This is a 83-year-old female who was recently admitted with bilateral lower extremity cellulitis with ulcers and pain with vascular surgery and infectious disease following. Patient is status post debridement and awaiting on finalized cultures to determine discharge antibiotics. Patient did have a possible allergic drug rash reaction to Zosyn which has been transition to cefepime currently. Patient will need a med/PICC line to continue IV antibiotic therapy. Discussing possible discharge planning options and patient would like to return home with home care and reports has previously had IV antibiotics in the home setting and can manage. Will discuss further with infectious disease and also have case management verify coverage and work on discharge planning. Patient is inquiring when she can go home. Patient is afebrile with no reports of chest pain or shortness of breath. 05/01/2024 Patient is seen in follow-up today maintained on IV antibiotics with infectious disease following and has received a midline and plans on returning home with home care and reports has her son to help administer IV medications. Patient has close outpatient follow-up and continue on local wound care to her lower extremities. Patient is afebrile with no reports of chest pain or shortness of breath. Patient has been tolerating diet with no reported nausea or vomiting. Patient reports she currently has no ride available today and arranging for discharge planning. Will discuss with case management/social work regarding discharge planning with probable discharge home in 24 hours. 05/02/2024 Patient is seen in follow-up this morning continued on IV antibiotics with infectious disease following. Patient will continue antibiotic therapy on discharge and patient was adamant about going home. After further discussion with patient and son, he is unable to care for her in the home and assist with IV antibiotics as he works. Patient is now agreeable to [facility] and case management is following working on referrals. Patient is afebrile with no reports of chest pain or shortness of breath. Patient has been tolerating diet with no reported nausea or vomiting. Will follow-up on repeat labs and continue to monitor closely. 05/03/2024 Patient is seen in follow-up today with no acute overnight issues noted. Patient continues on IV antibiotics with infectious disease following. Patient has received a midline and discharge planning has changed as son who lives with patient and feels incapable of caring for the patient with IV antibiotics and now working on going to [facility]. Case management is following although due to the holiday there is no staff today and no excepting ECF at this time. Multiple referrals have been placed and currently awaiting an accepting ECF. Patient is afebrile with no reports of chest pain or shortness of breath. Patient has been tolerating diet with no reported nausea or vomiting. A.m. labs are pending. Review of systems: Constitutional: No reports of fatigue, fever, or chills Cardiovascular: No reports of chest pain or palpitations Respiratory: No reports of shortness of breath or cough GI: No reports of nausea, no reports of vomiting, no diarrhea : No reports of dysuria or retention Neurovascular: reports of generalized weakness, continued lower extremity pain All medications have been reviewed PHYSICAL EXAMINATION: GENERAL: The patient is alert and oriented x2, baseline well developed, well nourished. Elderly appearing, obese HEENT: Pupils are round and equally reacting to light. EOMI. no scleral icterus. No conjunctival pallor. Normocephalic, atraumatic. No pharyngeal erythema. No thyromegaly. CARDIOVASCULAR: S1 and S2 muffled PULMONARY: diminished breath sounds bilaterally with no wheezing or rhonchi noted. ABDOMEN: soft. Nontender on exam. obese. non-distended, normoactive bowel sounds. No palpable organomegaly. MUSCULOSKELETAL: No joint swelling or deformity. EXTREMITIES: No cyanosis, clubbing, or pedal edema. Lower extremity bilateral dressings that are currently dry and intact NEUROLOGICAL: Gross neurological examination did not reveal any focal deficits. Diffuse weakness SKIN: No rashes. Assessment: Bilateral lower extremity pain with cellulitis, present on admission with culture showing Morganella and Enterococcus with resistance Possible drug rash with eosinophilia secondary to Zosyn, which has been discontinued, improved Hypertension history Hyperlipidemia Chronic bilateral lower extremity Peripheral vascular disease Obesity with a BMI 33.9 GI prophylaxis DVT prophylaxis Full code Plan: Recommend to continue with current medications and management with infectious disease following. Patient currently maintained on Invanz and cultures have finalized with Multiple Resistance with Morganella Morganii and Enterococcus VRE. Patient will continue IV antibiotics on discharge and close outpatient follow-up with infectious disease Patient has received a midline. Case management following as patient was adamant about going home with home care. Son discussed further with case management and is unable to care for the patient in the home with IV antibiotics as he works and would like patient to go to ECF for IV antibiotic therapy. Patient is now agreeable and case management has placed referrals to ECF. Follow-up on repeat labs and continue to monitor closely. White count mildly e levated although patient remains afebrile Encouraged elevating lower extremities while at rest and dressing changes Due to multiple complex medical issues, prognosis is guarded Possible discharge planning in the next 24 hours if there is an accepting ECF. The impression and plan of care has been dictated by Florina Carvajal, nurse practitioner as directed. Dr. Gerard MD I have performed a history and examination and MDM of this patient, discussed the same with the dictator, and agree with the dictator's assessment and plan as written ,documented as a scribe. Based on total visit time, I have performed more than 50% of the visit. Any additional findings or plans will be noted. Objective - Vital Signs Vital signs: Vital Signs Temp 98.2 F 05/03/24 07:43 Pulse 96 05/03/24 07:43 Resp 17 05/03/24 07:43 BP 122/79 05/03/24 07:43 Pulse Ox 92 L 05/03/24 07:43 FiO2 Intake & Output 05/02/24 05/03/24 05/03/24 18:59 06:59 18:59 Output Total 900 Balance -900 Weight 84 kg Output: Urine 900 Other: Voiding Method External Catheter # Voids 1 # Bowel Movements 1 1 - Labs CBC & Chem 7: 05/03/24 06:36 05/03/24 06:36 Labs: Abnormal Lab Results - Last 24 Hours (Table) 05/03/24 05/03/24 Range/Units 06:36 06:36 WBC 13.2 H (3.8-10.6) k/uL RBC 3.07 L (3.80-5.40) m/uL Hgb 10.0 L (11.4-16.0) gm/dL Hct 33.0 L (34.0-46.0) % MCV 107.5 H (80.0-100.0) fL MCHC 30.4 L (31.0-37.0) g/dL Plt Count 513 H (150-450) k/uL Neutrophils # 9.2 H (1.3-7.7) k/uL Monocytes # 1.3 H (0-1.0) k/uL Monocytes # (Manual) 1.45 H (0-1.0) k/uL Eosinophils # (Manual) 1.32 H (0-0.7) k/uL Metamyelocytes # (Man) 0.26 H (0) k/uL Myelocytes # (Manual) 0.53 H (0) k/uL BUN 31 H (7-17) mg/dL Creatinine 1.40 H (0.52-1.04) mg/dL
[2024-05-04 08:39] VITALS: BP 121/72; PULSE 96; TEMP 98.1
[2024-05-04 08:41] LABS: HCT 31.3 % (37.2-46.3); HGB 9.6 g/dL (12.0-15.0); MCH 32.5 pg (27.0-32.0); MCHC 30.7 g/dL (32.0-37.0); MCV 106.1 FL (80.0-97.0); Mean Platelet Volume 9.7 FL (9.5-12.2); NRBC Per 100 WBC 0 X 10*3/uL (0.00-0.01); Platelet Count 462 X 10*3/uL (140-440); RBC 2.95 X 10*6/uL (4.10-5.20); RDW 13.9 % (11.5-14.5)
[2024-05-04 08:55] LABS: Blood Urea Nitrogen 28.8 mg/dL (9.0-27.0); Calcium 8.7 mg/dL (8.7-10.3); Carbon Dioxide 26.8 mmol/L (21.6-31.8); Chloride 101 mmol/L (96-109); Glucose 86 mg/dL (70-110); Potassium 3.4 mmol/L (3.5-5.5); Sodium 140 mmol/L (135-145)
[2024-05-04 09:58] LABS: Basophils # (M) 0 X 10*3/uL (0.00-0.10); Lymphocytes # (M) 1.67 X 10*3/uL (0.90-5.00); Metamyelocytes % 1 % (0-0); Monocytes # (M) 0.83 X 10*3/uL (0.20-1.00); Myelocytes % 4 % (0-0); Neutrophils # (M) 8.21 X 10*3/uL (1.80-7.70); Neutrophils % (M) 69 %; RBC Morphology Normal (Normal)
--- NOTE | 2024-05-04 12:50 | P.PN ---
Subjective Progress Note Date: 05/04/24 Principal diagnosis: Reason for follow-up is bilateral lower extremity wound and cellulitis Patient is a 83-year-old female with a past medical history significant for hypertension hyperlipidemia osteoarthritis reflux did have a history of lower extremity ulcers and cellulitis presented to hospital worsening wound and cellulitis to bilateral lower extremity.Patient is status post sharp excisional debridement of bilateral extremity wound completed by vascular surger alejandro on 04/27/2024. On today's evaluation that is 05/04/2024, the patient continues to be afebrile, the patient is on room air and breathing comfortably, the Pt denies having any chest pain or cough, the patient denies having any abdominal pain no vomiting or any diarrhea and denies any worsening pain to bilateral lower extremity wounds Patient white count is down to 11.90 creatinine is 1.6 Objective - Vital Signs Vital signs: Vital Signs Temp 98.1 F 05/04/24 07:25 Pulse 96 05/04/24 07:25 Resp 17 05/04/24 08:00 BP 121/72 05/04/24 07:25 Pulse Ox 91 L 05/04/24 07:25 FiO2 Intake & Output 05/03/24 05/04/24 05/04/24 18:59 06:59 18:59 Intake Total 550 Output Total 600 Balance 550 -600 Intake: Intake, IV Titration 200 Amount Cefepime 1 gm In Sodium 100 Chloride 0.9% 50 ml @ 12. 5 mls/hr IVPB Q12HR [facility] Rx#:[id number] Ertapenem 0.5 gm In 100 Sodium Chloride 0.9% 50 ml @ 100 mls/hr IVPB DAILY [facility] Rx#:[id number] Oral 350 Output: Urine 600 Other: Voiding Method External Catheter External Catheter External Catheter # Bowel Movements 1 - Exam GENERAL DESCRIPTION: An elderly female lying in bed in no distress RESPIRATORY SYSTEM: Unlabored breathing , decreased breath sounds at bases HEART: S1 S2 regular rate and rhythm , ABDOMEN: Soft , no tenderness EXTREMITIES: Bilateral leg wounds are currently dressed - Labs CBC & Chem 7: 05/04/24 06:07 05/04/24 06:07 Labs: Abnormal Lab Results - Last 24 Hours (Table) 05/04/24 05/04/24 Range/Units 06:07 06:07 WBC 11.90 H (4.50-10.00) X 10*3/uL RBC 2.95 L (4.10-5.20) X 10*6/uL Hgb 9.6 L (12.0-15.0) g/dL Hct 31.3 L (37.2-46.3) % MCV 106.1 H (80.0-97.0) FL MCH 32.5 H (27.0-32.0) pg MCHC 30.7 L (32.0-37.0) g/dL Plt Count 462 H (140-440) X 10*3/uL Neutrophils # (Manual) 8.21 H (1.80-7.70) X 10*3/uL Eosinophils # (Manual) 0.60 H (0.04-0.35) X 10*3/uL Potassium 3.4 L (3.5-5.5) mmol/L Anion Gap 12.20 H (4.00-12.00) mmol/L BUN 28.8 H (9.0-27.0) mg/dL Creatinine 1.6 H (0.6-1.5) mg/dL Est GFR (CKD-EPI) 32 L (>=60) Assessment and Plan (1) Bilateral lower leg cellulitis Current Visit: Yes Status: Acute Code(s): L03.116 - CELLULITIS OF LEFT LOWER LIMB; L03.115 - CELLULITIS OF RIGHT LOWER LIMB SNOMED Code(s): 886918447 Plan: 1patient presented to hospital with lower extremity worsening wound with pain and concerning for wound infection and cellulitis with the last culture was predominantly Pseudomonas and E. coli likely from gram-negative pathogen. 2local culture currently growing Morganella Proteus and Pseudomonas, patient has developed itching could be related to Zosyn which has been discontinued 3-OR cultures are now growing Morganella and a drug-resistant VRE I did contact the micro lab and talk to them personally unfortunately there are no other drugs in the here and sensitivity that are sensitive it is resistant to daptomycin and linezolid and tigecycline only showing his synergistic effect with the gentamicin and streptomycin keeping in mind her kidney function and only synergistic activity it would not be worthwhile using those drugs more risk of nephrotoxins 4-patient to continue with Invanz 500 mg daily for 10 days dose has been adjusted by the pharmacy to the kidney function and close outpatient follow-up Dictation was produced using [employer] dictation software. please excuse any grammatical, word or spelling errors. Time with Patient: Less than 30
--- NOTE | 2024-05-04 13:26 | P.DS ---
Providers Date of admission: 04/25/24 12:32 Expected date of discharge: 05/04/24 Attending physician: Ten Guerrero Consults: 04/25/24 12:29 Consult Physician Routine Consulting Provider: Caleb Babin Consult Reason/Comments: wounds Do you want consulting provider notified?: Yes Primary care physician: Ten Cesar [place] Hospital Course: Discharge diagnoses; Bilateral lower extremity pain with cellulitis, present on admission with culture showing Morganella and Enterococcus with resistance Possible drug rash with eosinophilia secondary to Zosyn, which has been discontinued, improved Hypertension history Hyperlipidemia Chronic bilateral lower extremity Peripheral vascular disease Obesity with a BMI 33.9 Hospital course; This is a 83-year-old female who was recently admitted with bilateral lower extremity cellulitis with ulcers and pain with vascular surgery and infectious disease following. Patient is status post debridement and awaiting on finalized cultures to determine discharge antibiotics. Patient did have a possible allergic drug rash reaction to Zosyn which has been transition to cefepime currently. Patient will need a med/PICC line to continue IV antibiotic therapy. Discussing possible discharge planning options and patient would like to return home with home care and reports has previously had IV antibiotics in the home setting and can manage. Will discuss further with infectious disease and also have case management verify coverage and work on discharge planning. Patient is inquiring when she can go home. Patient is afebrile with no reports of chest pain or shortness of breath. 05/01/2024 Patient is seen in follow-up today maintained on IV antibiotics with infectious disease following and has received a midline and plans on returning home with home care and reports has her son to help administer IV medications. Patient has close outpatient follow-up and continue on local wound care to her lower extremities. Patient is afebrile with no reports of chest pain or shortness of breath. Patient has been tolerating diet with no reported nausea or vomiting. Patient reports she currently has no ride available today and arranging for discharge planning. Will discuss with case management/social work regarding discharge planning with probable discharge home in 24 hours. 05/02/2024 Patient is seen in follow-up this morning continued on IV antibiotics with infectious disease following. Patient will continue antibiotic therapy on discharge and patient was adamant about going home. After further discussion with patient and son, he is unable to care for her in the home and assist with IV antibiotics as he works. Patient is now agreeable to ECF and case management is following working on referrals. Patient is afebrile with no reports of chest pain or shortness of breath. Patient has been tolerating diet with no reported nausea or vomiting. Will follow-up on repeat labs and continue to monitor closely. 05/03/2024 Patient is seen in follow-up today with no acute overnight issues noted. Patient continues on IV antibiotics with infectious disease following. Patient has received a midline and discharge planning has changed as son who lives with patient and feels incapable of caring for the patient with IV antibiotics and now working on going to ECF. Case management is following although due to the holiday there is no staff today and no excepting ECF at this time. Multiple referrals have been placed and currently awaiting an accepting ECF. Patient is afebrile with no reports of chest pain or shortness of breath. Patient has been tolerating diet with no reported nausea or vomiting. A.m. labs are pending. 05/04. Patient seen and examined. Patient being discharged to ECF in stable condition. Antibiotics have been arranged by ID PHYSICAL EXAMINATION: GENERAL: The patient is alert and oriented x2, baseline well developed, well nourished. Elderly appearing, obese HEENT: Pupils are round and equally reacting to light. EOMI. no scleral icterus. No conjunctival pallor. Normocephalic, atraumatic. No pharyngeal erythema. No thyromegaly. CARDIOVASCULAR: S1 and S2 muffled PULMONARY: diminished breath sounds bilaterally with no wheezing or rhonchi noted. ABDOMEN: soft. Nontender on exam. obese. non-distended, normoactive bowel sounds. No palpable organomegaly. MUSCULOSKELETAL: No joint swelling or deformity. EXTREMITIES: No cyanosis, clubbing, or pedal edema. Lower extremity bilateral dressings that are currently dry and intact NEUROLOGICAL: Gross neurological examination did not reveal any focal deficits. Diffuse weakness SKIN: No rashes. Dictation was produced using [employer] dictation software. please excuse any grammatical, word or spelling errors. Patient Condition at Discharge: Fair Plan - Discharge Summary Discharge Rx Participant: No New Discharge Prescriptions: New Calamine/Zinc Oxide Lotion [Calamine Lotion] 1 applic TOPICAL QID PRN #1 each PRN Reason: Skin Irritation Continue Montelukast [Singulair] 10 mg PO HS Pravastatin Sodium [Pravachol] 20 mg PO DAILY tab Potassium Chloride [Klor-Con M20] 20 meq PO DAILY HYDROcodone/APAP 10-325MG [[place] 10-325] 1 tab PO Q8H Furosemide [Lasix] 40 mg PO DAILY Acetaminophen [Tylenol Arthritis] 650 - 1,300 mg PO Q8H PRN PRN Reason: Pain Discontinued Cephalexin [Keflex] 500 mg PO Q6H Discharge Medication List Montelukast [Singulair] 10 mg PO HS 08/18/19 [History] Pravastatin Sodium [Pravachol] 20 mg PO DAILY tab 08/15/23 [Rx] Acetaminophen [Tylenol Arthritis] 650 - 1,300 mg PO Q8H PRN 04/25/24 [History] Furosemide [Lasix] 40 mg PO DAILY 04/25/24 [History] HYDROcodone/APAP 10-325MG [[place] 10-325] 1 tab PO Q8H 04/25/24 [History] Potassium Chloride [Klor-Con M20] 20 meq PO DAILY 04/25/24 [History] Calamine/Zinc Oxide Lotion [Calamine Lotion] 1 applic TOPICAL QID PRN #1 each 05/02/24 [Rx] Follow up Appointment(s)/Referral(s): [facility], [REFERRING] - As Needed ([facility] will deliver supplies to your home on the evening of discharge between 6-8 p.m. ) [facility] [NON-STAFF] - 2 Weeks [facility] [NON-STAFF] - 1 Week (Agency will call within 24-48 hour s to schedule a visit. ) Ten Guerrero MD [Primary Care Provider] - 1-2 days Activity/Diet/Wound Care/Special Instructions: Activity limited until follow-up Continue IV antibiotics per ID recommendations Follow-up with the wound care center Follow-up with primary care provider on discharge Continue local wound care Discharge Disposition: TRANSFER TO SNF/ECF
== END 2024-05-04 15:37 | DRG 264 ==
LOC: EC 09:26 → 4SSUR 12:32
PROVIDERS: ADMIT Internal Medicine; ATTEND Internal Medicine
PROC: 0QBP0ZZ Excision of Left Metatarsal, Open Approach (ICD-10-PCS; principal; 2024-04-27 10:45)
PROC: 0QBQ0ZZ Excision of Right Toe Phalanx, Open Approach (ICD-10-PCS; principal; 2024-04-27 10:45)
PROC: 0QBR0ZZ Excision of Left Toe Phalanx, Open Approach (ICD-10-PCS; principal; 2024-04-27 10:45)
PROC: 0JBQ0ZZ Excision of Right Foot Subcutaneous Tissue and Fascia, Open Approach (ICD-10-PCS; principal; 2024-04-27 10:45)
PROC: 0JBR0ZZ Excision of Left Foot Subcutaneous Tissue and Fascia, Open Approach (ICD-10-PCS; principal; 2024-04-27 10:45)
PROC: 05HC33Z Insertion of Infusion Device into Left Basilic Vein, Percutaneous Approach (ICD-10-PCS; 2024-04-30 12:25)
DX: I83.213 Varicose veins of right lower extremity with both ulcer of ankle and inflammation (principal); L03.115 Cellulitis of right lower limb; L03.116 Cellulitis of left lower limb; I48.92 Unspecified atrial flutter; L97.312 Non-pressure chronic ulcer of right ankle with fat layer exposed; Z16.21 Resistance to vancomycin; D72.10 Eosinophilia, unspecified; L89.890 Pressure ulcer of other site, unstageable; L89.612 Pressure ulcer of right heel, stage 2; L89.622 Pressure ulcer of left heel, stage 2; I12.9 Hypertensive chronic kidney disease with stage 1 through stage 4 chronic kidney disease, or unspecified chronic kidney disease; N18.30 Chronic kidney disease, stage 3 unspecified; E66.01 Morbid (severe) obesity due to excess calories; Z68.33 Body mass index [BMI] 33.0-33.9, adult; I73.9 Peripheral vascular disease, unspecified; B96.4 Proteus (mirabilis) (morganii) as the cause of diseases classified elsewhere; B96.5 Pseudomonas (aeruginosa) (mallei) (pseudomallei) as the cause of diseases classified elsewhere; B95.2 Enterococcus as the cause of diseases classified elsewhere; L29.9 Pruritus, unspecified; T36.0X5A Adverse effect of penicillins, initial encounter; E78.5 Hyperlipidemia, unspecified; K21.9 Gastro-esophageal reflux disease without esophagitis; M21.379 Foot drop, unspecified foot; G89.29 Other chronic pain; M54.50 Low back pain, unspecified; M54.2 Cervicalgia; M19.90 Unspecified osteoarthritis, unspecified site; M21.962 Unspecified acquired deformity of left lower leg; M21.961 Unspecified acquired deformity of right lower leg; Z79.899 Other long term (current) drug therapy; Z96.653 Presence of artificial knee joint, bilateral; Z71.3 Dietary counseling and surveillance; Z88.2 Allergy status to sulfonamides
CPT/HCPCS: 36410; 36415; 71045; 76937; 80048; 80053; 83605; 83735; 85025; 85610; 85730; 87040; 87070; 87075; 87077; 87186; 87205; 93005; 94760; 96365; 96366; 96368; 96375; 96376; 99285